=== PATIENT | male | born 1950 | race American Indian/Alaskan Native ===

== ENCOUNTER 2017-08-15 20:09 | Emergency (ER) | payer MEDICARE ==
[2017-08-15 20:09] VITALS: BMI 60.5
[2017-08-15 20:18] VITALS: RESP 18; TEMP 97.8
--- NOTE | 2017-08-15 21:00 | ED PDOC ---
Arrival/HPI - General Chief Complaint: Headache Time Seen by Provider: 08/15/17 20:14 Historian: Patient - History of Present Illness Narrative History of Present Illness (Text): 08/15/17 20:14 A 66 year old male, whose past medical history includes renal failure (last dialysis was 2 days ago), hypertension and diabetes, presents to the emergency department complaining of nausea today. Patient reports also experiencing generalized weakness. Patient denies any chest pain, shortness of breath, headache, fever, chills, vomiting, stool changes, appetite changes, or any other complaints. Also, patient mentions having not missed any dialysis sessions. PMD: Dr. Rincon Past Medical History - Provider Review Nursing Documentation Reviewed: Yes - Past History Past History: No Previous - Infectious Disease Hx of Infectious Diseases: None - Tetanus Immunization Tetanus Immunization: Unknown - Cardiac Hx Cardiac Disorders: Yes Hx Hypertension: Yes - Pulmonary Hx Respiratory Disorders: Yes Hx Pneumonia: Yes - Neurological Hx Paralysis: No - HEENT Hx Cataracts: Yes - Renal Hx Renal Disorder: Yes Hx Dialysis: Yes Type of Dialysis Access: LUE fistula Hx Renal Failure: Yes (on HD (M/W/F)) - Endocrine/Metabolic Hx Endocrine Disorders: Yes Hx Diabetes Mellitus Type 2: Yes - Hematological/Oncological Hx Blood Disorders: Yes Hx Blood Transfusions: Yes Hx Blood Transfusion Reaction: No - Integumentary Hx Dermatological Disorder: No - Musculoskeletal/Rheumatological Hx Musculoskeletal Disorders: No - Gastrointestinal Hx Gastrointestinal Disorders: No - Genitourinary/Gynecological Hx Genitourinary Disorders: No - Psychiatric Hx Emotional Abuse: No Hx Physical Abuse: No Hx Substance Use: No - Surgical History Hx Cataract Extraction: Yes Other/Comment: DIANA AV Fistula - Anesthesia Hx Anesthesia: Yes Hx Anesthesia Reactions: No Hx Malignant Hyperthermia: No - Suicidal Assessment Feels Threatened In Home Enviroment: No Family/Social History - Physician Review Nursing Documentation Reviewed: Yes Family/Social History: No Known Family HX Smoking Status: Never Smoked Hx Alcohol Use: Yes (BEER- STOPPED 3 YRS AGO) Hx Substance Use: No Hx Substance Use Treatment: No Allergies/Home Meds Allergies/Adverse Reactions: Allergies No Known Allergies Allergy (Verified 05/27/15 13:52) Home Medications: Home Meds Medication Instructions Recorded Confirmed Ergocalciferol [Drisdol 50,000 1 cap PO Q7D 07/31/17 08/15/17 Intl Units Cap] Warfarin [Coumadin] 4 mg PO 1800 08/15/17 08/15/17 Review of Systems - Physician Review All systems were reviewed & negative as marked: Yes - Review of Systems Constitutional: Fatigue, Other (generalized weakness). absent: Fevers, Night Sweats Respiratory: absent: SOB Cardiovascular: absent: Chest Pain Gastrointestinal: Nausea. absent: Stool Changes, Vomiting, Appetite Changes Neurological: absent: Headache Physical Exam Vital Signs Reviewed: Yes Vital Signs Temp Pulse Resp BP Pulse Ox 08/15/17 20:15 97.8 F 70 18 158/80 H 95 Temperature: Afebrile Blood Pressure: Hypertensive Pulse: Regular Respiratory Rate: Normal Appearance: Positive for: Well-Appearing (well-hydrated), Other (obese; difficult to perform examination) Pain Distress: None Mental Status: Positive for: Alert and Oriented X 3 - Systems Exam Head: Present: Atraumatic, Normocephalic Pupils: Present: PERRL Extroacular Muscles: Present: EOMI Conjunctiva: Present: Normal Mouth: Present: Moist Mucous Membranes Neck: Present: Normal Range of Motion Respiratory/Chest: Present: Clear to Auscultation, Good Air Exchange. No: Respiratory Distress, Accessory Muscle Use Cardiovascular: Present: Regular Rate and Rhythm, Normal S1, S2. No: Murmurs Abdomen: Present: Normal Bowel Sounds. No: Tenderness, Distention, Peritoneal Signs Back: Present: Normal Inspection Upper Extremity: Present: Normal Inspection. No: Cyanosis, Edema Lower Extremity: Present: Normal Inspection. No: Edema Neurological: Present: GCS=15, CN II-XII Intact, Speech Normal. No: Other (no focal deficits) Skin: Present: Warm, Dry, Normal Color. No: Rashes Psychiatric: Present: Alert, Oriented x 3, Normal Insight, Normal Concentration Medical Decision Making ED Course and Treatment: 08/15/17 20:18 Impression: 66 year old male with nausea and fatigue. No acute findings on physical examination; patient appears obese, difficult to do examination. Plan: -- EKG -- Labs -- Zofran -- Reassess and disposition Prior Visits: Notes and results from previous visits were reviewed. Patient was last seen in the emergency department on 07/31/2017 for worsening gait changes, dizziness, disequilibrium, and headache. Patient was admitted. Progress Notes: 02/11/18 22:48 feels much better after zofran. No symptoms. EKG NSR with no ischemic changes. Troponin 0.05 consistent with CRF. No evidence of acute coronary event. - Lab Interpretations Lab Results: 08/15/17 21:40 08/15/17 21:40 Lab Results 08/15/17 21:40: PT 46.0 H, INR 3.92 H* 08/15/17 21:40: Sodium 139, Potassium 4.6, Chloride 96 L, Carbon Dioxide 28, Anion Gap 20, BUN 47 H, Creatinine 9.0 H*, Est GFR ( Amer) 7, Est GFR ( Non-Af Amer) 6, Random Glucose 133 H, Calcium 8.5, Total Bilirubin 0.5, AST 23, ALT 23, Alkaline Phosphatase 141 H D, Troponin I 0.05, Total Protein 7.4, Albumin 4.1, Globulin 3.3, Albumin/Globulin Ratio 1.3 08/15/17 21:40: WBC 8.6 D, RBC 3.69, Hgb 11.0 L, Hct 34.7 L, MCV 94.0, MCH 29.8 , MCHC 31.7, RDW 14.9 H, Plt Count 285, MPV 10.6, Gran % 70.5 H, Lymph % (Auto) 18.2 L, [place] % (Auto) 7.6 H, Eos % (Auto) 3.5, Baso % (Auto) 0.2, Gran # 6.02, Lymph # (Auto) 1.6, [place] # (Auto) 0.7 H, Eos # (Auto) 0.3, Baso # (Auto) 0.02 - Medication Orders Current Medication Orders: Discontinued Medications Acetaminophen (Tylenol 325mg Tab) 975 mg PO STAT STA Stop: 08/15/17 21:49 Last Admin: 08/15/17 22:13 Dose: 975 mg Ondansetron HCl (Zofran Inj) 4 mg IVP STAT STA Stop: 08/15/17 20:21 Last Admin: 08/15/17 21:47 Dose: 4 mg IVP Administration Document 08/15/17 21:47 CNR (Rec: 08/15/17 21:48 CNR [id number]) Charges for Administration # of IVP Administrations 1 - Scribe Statement The provider has reviewed the documentation as recorded by the Scribe Josafatan Dabdi Provider Agnes Attestation: All medical record entries made by the Catherineibana were at my direction and personally dictated by me. I have reviewed the chart and agree that the record accurately reflects my personal performance of the history, physical exam, medical decision making, and the department course for this patient. I have also personally directed, reviewed, and agree with the discharge instructions and disposition. Disposition/Present on Arrival - Present on Arrival Any Indicators Present on Arrival: No History of DVT/PE: No History of Uncontrolled Diabetes: No Urinary Catheter: No History of Decub. Ulcer: No History Surgical Site Infection Following: None - Disposition Have Diagnosis and Disposition been Completed?: Yes Diagnosis: Nausea, ESRD (end stage renal disease) on dialysis Disposition: HOME/ ROUTINE Disposition Time: 23:00 Patient Plan: Discharge Condition: IMPROVED Referrals: Steve Rincon MD [Primary Care Provider] - Follow up with primary Forms: [employer] (Urdu)
[2017-08-15 22:20] LABS: BASO # 0.02 K/mm3 (0.0-2.0); BASO % 0.2 % (0.0-3.0); EOS # 0.3 (0.0-0.7); EOS % 3.5 % (1.5-5.0); GRAN # 6.02 (1.4-6.5); GRAN % 70.5 % (50.0-68.0); LYMPH # 1.6 (1.2-3.4); LYMPH % 18.2 % (22.0-35.0); MEAN CORPUSCULAR HEMOGLOBIN 29.8 pg (25.0-35.0); MEAN CORPUSCULAR HGB CONC 31.7 g/dl (31.0-37.0); MEAN PLATELET VOLUME 10.6 fl (7.0-11.0); MONO # 0.7 (0.1-0.6); MONO % 7.6 % (1.0-6.0); RBC 3.69 10^6/uL (3.5-6.1); RED CELL DISTRIBUTION WIDTH 14.9 % (11.5-14.5); TROPONIN I 0.05 ng/mL; WHITE BLOOD COUNT 8.6 10^3/ul (4.5-11.0)
[2017-08-15 22:34] LABS: INR 3.92 (0.93-1.08)
[2017-08-15 22:36] LABS: ALB/GLOB RATIO 1.3 (1.1-1.8); ALBUMIN 4.1 g/dL (3.0-4.8); CALCIUM 8.5 mg/dL (8.4-10.5)
[2017-08-15 23:59] VITALS: BP 142/76; PULSE 73; O2SAT 97
--- NOTE | 2017-08-16 15:58 | CARD ---
APPROVED REPORT EKG Measurement Heart [id number] <Conclusion> Sinus rhythm with marked sinus arrhythmia with 1st degree AV block Otherwise normal ECG
== END 2017-08-15 23:20 | disposition home or self-care (01) ==
LOC: ED 20:09
DX: I12.0 Hypertensive chronic kidney disease with stage 5 chronic kidney disease or end stage renal disease (principal); E11.22 Type 2 diabetes mellitus with diabetic chronic kidney disease; N18.6 End stage renal disease; Z99.2 Dependence on renal dialysis; R11.0 Nausea
CPT/HCPCS: 80053; 84484; 85025; 85610; 93005; 96374; 99285; J2405

== ENCOUNTER 2017-08-24 15:53 | Inpatient (IN) | payer MEDICARE ==
[2017-08-24 15:53] VITALS: BMI 60.5
[2017-08-24] MEDS ORDERED: Piperacillin/Tazobact 3.375 gm 100 ML IVPB STA (16:24)
[2017-08-24] MEDS ORDERED: Vancomycin 2 GM in Sodium Chloride 0.9% 500 ML IVPB ONE (16:24)
--- NOTE | 2017-08-24 16:29 | ED PDOC ---
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 as per pt, has had symptoms for a while but saw commercial agent today sent to er. pt denies any other complaitns, reports compliance with warfarin. no fevers, cardiopulm complaints. Past Medical History - Past History Past History: No Previous - Infectious Disease Hx of Infectious Diseases: None - Tetanus Immunization Tetanus Immunization: Unknown - Cardiac Hx Cardiac Disorders: Yes Hx Hypertension: Yes - Pulmonary Hx Respiratory Disorders: Yes Hx Pneumonia: Yes - Neurological Hx Neurological Disorder: Yes HX Cerebrovascular Accident: Yes (as per pt in 07/2017) Hx Paralysis: No - HEENT Hx HEENT Disorder: Yes Hx Cataracts: Yes - Renal Hx Renal Disorder: Yes Hx Dialysis: Yes Type of Dialysis Access: L upper arm Date of Last Dialysis Treatment: 08/23/17 Hx Renal Failure: Yes (on HD (M/W/F)) - Endocrine/Metabolic Hx Endocrine Disorders: Yes Hx Diabetes Mellitus Type 2: Yes - Hematological/Oncological Hx Blood Disorders: Yes Hx Blood Transfusions: Yes Hx Blood Transfusion Reaction: No - Integumentary Hx Dermatological Disorder: No - Musculoskeletal/Rheumatological Hx Musculoskeletal Disorders: No - Gastrointestinal Hx Gastrointestinal Disorders: No - Genitourinary/Gynecological Hx Genitourinary Disorders: No - Psychiatric Hx Emotional Abuse: No Hx Physical Abuse: No Hx Substance Use: No - Surgical History Hx Cataract Extraction: Yes Other/Comment: DIANA AV Fistula - Anesthesia Hx Anesthesia: Yes Hx Anesthesia Reactions: No Hx Malignant Hyperthermia: No - Suicidal Assessment Feels Threatened In Home Enviroment: No Family/Social History - Physician Review Nursing Documentation Reviewed: Yes Family/Social History: Unknown Family HX Smoking Status: Never Smoked Hx Alcohol Use: Yes (BEER- STOPPED 3 YRS AGO) Hx Substance Use: No Hx Substance Use Treatment: No Allergies/Home Meds Allergies/Adverse Reactions: Allergies No Known Allergies Allergy (Verified 08/24/17 16:02) Home Medications: Home Meds Medication Instructions Recorded Confirmed Ergocalciferol [Drisdol 50,000 1 cap PO Q7D 01/27/18 02/20/18 Intl Units Cap] Warfarin [Coumadin] 4 mg PO 1800 08/15/17 08/24/17 Duloxetine HCl [Duloxetine HCl] 60 mg PO DAILY 08/24/17 08/24/17 traMADol [Ultram] 50 g PO TID PRN 08/24/17 08/24/17 Review of Systems - Review of Systems Constitutional: Normal Eyes: Normal ENT: Normal Respiratory: Normal Cardiovascular: Normal Gastrointestinal: Normal Genitourinary Male: Normal Musculoskeletal: Other (5th toe gangrene) Neurological: Normal Endocrine: Normal Hemo/Lymphatic: Normal Psychiatric: Normal Physical Exam Vital Signs Temp Pulse Resp BP Pulse Ox 08/24/17 21:28 64 18 142/73 98 08/24/17 18:48 65 18 148/73 96 08/24/17 16:15 151/62 H 08/24/17 16:06 97.6 F 69 18 96 Temperature: Afebrile Blood Pressure: Normal Pulse: Regular Respiratory Rate: Normal Appearance: Positive for: Well-Appearing, Non-Toxic, Comfortable Pain Distress: None Mental Status: Positive for: Alert and Oriented X 3 Finger Stick Blood Glucose: 147 - Systems Exam Head: Present: Atraumatic, Normocephalic Pupils: Present: PERRL Extroacular Muscles: Present: EOMI Conjunctiva: Present: Normal Mouth: Present: Moist Mucous Membranes Neck: Present: Normal Range of Motion Respiratory/Chest: Present: Clear to Auscultation, Good Air Exchange. No: Respiratory Distress, Accessory Muscle Use Cardiovascular: Present: Regular Rate and Rhythm, Normal S1, S2. No: Murmurs Abdomen: Present: Normal Bowel Sounds. No: Tenderness, Distention, Peritoneal Signs Back: Present: Normal Inspection Upper Extremity: Present: Normal Inspection. No: Cyanosis, Edema Lower Extremity: Present: Normal Inspection, Other (5th right toe gangrene, diminshed pulses to b/l le). No: Edema Neurological: Present: GCS=15, CN II-XII Intact, Speech Normal Skin: Present: Warm, Dry, Normal Color. No: Rashes Psychiatric: Present: Alert, Oriented x 3, Normal Insight, Normal Concentration Medical Decision Making ED Course and Treatment: 08/24/17 18:[address] moser- labs imaging pendign seen by dr barahona bedside accepts for admission - Lab Interpretations Microbiology Results: Microbiology Results 08/24/17 17:00 Blood Blood Culture - Preliminary NO GROWTH AFTER 3 DAYS 08/24/17 16:30 Blood Blood Culture - Preliminary NO GROWTH AFTER 3 DAYS 08/24/17 17:00 Toe Gram Stain - Final 08/24/17 17:00 Toe Wound Culture - Preliminary Stenotrophomonas Maltophilia Lab Results: 08/24/17 17:00 08/24/17 17:00 Lab Results 08/24/17 17:00: ESR 114 H 08/24/17 17:00: C-React Prot High Sens > 15.00 H 08/24/17 17:00: Sodium 139, Potassium 4.2, Chloride 95 L, Carbon Dioxide 32, Anion Gap 16, BUN 29 H, Creatinine 7.3 H, Est GFR ( Amer) 9, Est GFR (Non -Af Amer) 8, Random Glucose 135 H, Calcium 9.1, Total Bilirubin 0.6, AST 18, ALT 25, Alkaline Phosphatase 151 H, Total Protein 6.3, Albumin 3.4, Globulin 2.9 , Albumin/Globulin Ratio 1.2 08/24/17 17:00: PT 24.1 H, INR 2.08 H, APTT 41.6 H 08/24/17 17:00: WBC 9.4, RBC 3.53, Hgb 10.3 L, Hct 32.1 L, MCV 90.9 D, MCH 29.2 , MCHC 32.1, RDW 14.9 H, Plt Count 304, MPV 10.3, Gran % 74.0 H, Lymph % (Auto) 13.8 L, [place] % (Auto) 10.3 H, Eos % (Auto) 1.8, Baso % (Auto) 0.1, Gran # 6.96 H , Lymph # (Auto) 1.3, [place] # (Auto) 1.0 H, Eos # (Auto) 0.2, Baso # (Auto) 0.01 08/24/17 16:13: POC Glucose (mg/dL) 147 H - RAD Interpretation Radiology Orders: 08/24/17 16:24 FOOT RIGHT 3 VIEWS ROUTINE [RAD] Stat - Medication Orders Current Medication Orders: Acetaminophen (Tylenol 325mg Tab) 650 mg PO Q6H PRN PRN Reason: TEMP>=99.5F Last Admin: 08/27/17 23:47 Dose: 650 mg [facility] Pain/Vitals Document 08/27/17 23:47 CDL (Rec: 08/27/17 23:48 CDL [id number]) Presence of Pain Presence of Pain Yes Location Left, Right or Bilateral Right Pain Location Body Site Foot Intensity 7 Scale Used Numeric Pain Behavior Restlessness Re-Assess: [facility] Pain/Vitals Document 08/28/17 00:47 CDL (Rec: 08/28/17 06:35 CDL [id number]) Pain Reassessment Is This A Pain ReAssessment? Yes Sleep Is patient sleeping during reassessment? Yes Acetaminophen (Tylenol 325mg Tab) 650 mg PO Q4H PRN PRN Reason: Pain, moderate (4-7) Last Admin: 08/27/17 18:40 Dose: 650 mg Aspirin (Ecotrin) 81 mg PO DAILY [facility] Last Admin: 08/27/17 12:01 Dose: Not Given Non-Admin Reason: Patient in Cardiology Atorvastatin Calcium (Lipitor) 80 mg PO DIN [facility] Last Admin: 08/27/17 17:08 Dose: 80 mg Calcium Acetate (Phoslo) 1,334 mg PO TID [facility] Last Admin: 08/27/17 18:43 Dose: Cinacalcet (Sensipar) 30 mg PO DAILY [facility] Last Admin: 08/27/17 12:01 Dose: Not Given Non-Admin Reason: Patient in Cardiology Docusate Sodium (Colace) 100 mg PO TID [facility] Last Admin: 08/27/17 17:08 Dose: 100 mg Duloxetine HCl (Cymbalta) 60 mg PO DAILY [facility] Last Admin: 08/27/17 12:00 Dose: Not Given Non-Admin Reason: Patient in Cardiology Ergocalciferol (Drisdol 50,000 Intl Units Cap) 1 cap PO Q7D [facility] Last Admin: 08/24/17 21:15 Dose: Folic Acid (Folic Acid) 5 mg PO DAILY [facility] Last Admin: 08/27/17 12:01 Dose: Not Given Non-Admin Reason: Patient in Cardiology Ceftaroline Fosamil 200 mg/ (Sodium Chloride) 100 mls @ 100 mls/hr IVPB Q12 [facility] PRN Reason: Protocol Stop: 09/02/17 10:01 Last Admin: 08/27/17 22:04 Dose: 100 mls/hr eMAR Start Stop Document 08/27/17 22:04 CDL (Rec: 08/27/17 22:05 CDL [id number]) Intravenous Solution Start Date 08/27/17 Start Time 22:05 End Date 08/27/17 End time 23:05 Total Infusion Time 60 Metronidazole (Flagyl) 500 mg in 100 mls @ 100 mls/hr IVPB Q8 [facility] PRN Reason: Protocol Last Admin: 08/28/17 06:34 Dose: Not Given Non-Admin Reason: Patient in Dialysis Heparin Sodium/Sodium Chloride (Heparin 09721 Units/250ml 1/2 Normal Saline) 25 ,000 units in 250 mls @ 20.139 mls/hr IV .[id number] PRN; Protocol; 12 UNITS/KG/HR PRN Reason: ADJUST RATE PER PROTOCOL Insulin Human Lispro (Humalog Med) 0 units SC AC [facility] PRN Reason: Protocol Last Admin: 08/27/17 16:30 Dose: 1 units [facility] Blood Glucose Document 08/27/17 16:30 KE (Rec: 08/27/17 16:31 [place] [id number] Blood Glucose Finger Stick Blood Glucose (70-120) 162 Subcutaneous Administrations Document 08/27/17 16:30 KE (Rec: 08/27/17 16:31 KE [id number] Charges for Administration # of Subcutaneous Administrations 1 Losartan Potassium (Cozaar) 100 mg PO DAILY [facility] Last Admin: 08/27/17 12:00 Dose: Not Given Non-Admin Reason: Patient in Cardiology Morphine Sulfate (Morphine) 2 mg IVP Q6H PRN PRN Reason: Pain, moderate (4-7) Last Admin: 08/26/17 11:46 Dose: 2 mg [facility] Pain Assessment Document 08/26/17 11:46 BENJAMIN (Rec: 08/26/17 11:46 BENJAMIN [id number]) Pain Reassessment Is this a pain reassessment? No Sleep Is patient sleeping during reassessment? No Presence of Pain Presence of Pain Yes Pain Scale Used Pain Scale Used Numeric Location Left, Right or Bilateral Right Pain Location Body Site Foot Description Description Constant Intensity of Pain at present 10 Acceptable Level of Pain 0 Pain Behavior Restlessness Facial Grimacing Alleviating Factors/Management Medication Techniques IVP Administration Document 08/26/17 11:46 BENJAMIN (Rec: 02/22/18 11:46 BENJAMIN [id number]) Charges for Administration # of IVP Administrations 1 Re-Assess: CARLEY Pain Assessment Document 08/26/17 12:46 BENJAMIN (Rec: 08/26/17 15:18 BENJAMIN [id number]) Pain Reassessment Is this a pain reassessment? Yes Sleep Is patient sleeping during reassessment? No Presence of Pain Presence of Pain No Pantoprazole Sodium (Protonix Ec Tab) 20 mg PO 0600,1600 [facility] Last Admin: 08/28/17 06:34 Dose: Not Given Non-Admin Reason: Patient in Dialysis Sennosides (Senokot Tab) 17.2 mg PO HS [facility] Last Admin: 08/27/17 22:03 Dose: 17.2 mg Discontinued Medications Darbepoetin Celio (Aranesp) 25 mcg IVP ONCE ONE Stop: 08/25/17 12:33 Last Admin: 08/25/17 12:41 Dose: 25 mcg IVP Administration Document 08/25/17 12:41 CADE (Rec: 08/25/17 12:41 CADE [id number]) Charges for Administration # of IVP Administrations 1 Diphenhydramine HCl (Benadryl) 25 mg PO ONCE ONE Stop: 08/28/17 00:03 Last Admin: 08/28/17 00:22 Dose: 25 mg Piperacillin Sod/Tazobactam Sod (Zosyn 3.375 In Ns 100ml) 100 mls @ 200 mls/hr IVPB STAT STA PRN Reason: Protocol Stop: 08/24/17 16:53 Last Admin: 08/24/17 16:52 Dose: 200 mls/hr eMAR Start Stop Document 08/24/17 16:52 OCS (Rec: 08/24/17 16:52 OCS [id number]) Intravenous Solution Start Date 08/24/17 Start Time 16:52 Vancomycin HCl (Vancomycin 1gm) 1 gm in 250 mls @ 167 mls/hr IVPB STAT STA Stop: 08/24/17 18:02 Last Admin: 08/24/17 18:32 Dose: 167 mls/hr eMAR Start Stop Document 08/24/17 18:32 OCS (Rec: 08/24/17 18:32 OCS [id number]) Intravenous Solution Start Date 08/24/17 Start Time 18:32 Ceftaroline Fosamil 200 mg/ (Sodium Chloride) 100 mls @ 100 mls/hr IVPB Q12 [facility] PRN Reason: Protocol Stop: 08/24/17 22:59 Last Admin: 08/24/17 22:48 Dose: 100 mls/hr eMAR Start Stop Document 08/24/17 22:48 BN (Rec: 08/24/17 22:48 [place] [facility] [id number] Intravenous Solution Start Date 08/24/17 Start Time 22:48 Vancomycin HCl (Vancomycin 1gm) 1 gm in 250 mls @ 167 mls/hr IVPB DAILY [facility] PRN Reason: Protocol Last Admin: 08/25/17 09:15 Dose: 167 mls/hr eMAR Start Stop Document 08/25/17 09:15 AJ (Rec: 08/25/17 09:16 AJ [id number] Intravenous Solution Start Date 08/25/17 Start Time 09:15 Piperacillin Sod/Tazobactam Sod (Zosyn 2.25 Gm In 0.9% 100 Ml) 2.25 gm in 100 mls @ 200 mls/hr IVPB STAT STA PRN Reason: Protocol Stop: 08/25/17 05:43 Last Admin: 08/25/17 05:48 Dose: 200 mls/hr eMAR Start Stop Document 08/25/17 05:48 BN (Rec: 08/25/17 05:48 BN [facility] [id number] Intravenous Solution Start Date 08/25/17 Start Time 05:48 Heparin Sodium/Sodium Chloride (Heparin 69904 Units/250ml 1/2 Normal Saline) 25 ,000 units in 250 mls @ 20.139 mls/hr IV .[id number] PRN; Protocol; 12 UNITS/KG/HR PRN Reason: ADJUST RATE PER PROTOCOL Morphine Sulfate (Morphine) 4 mg IVP STAT STA Stop: 08/24/17 16:31 Last Admin: 08/24/17 16:50 Dose: 4 mg MAR Pain Assessment Document 08/24/17 16:50 OCS (Rec: 08/24/17 16:51 OCS [id number]) Pain Reassessment Is this a pain reassessment? Yes Sleep Is patient sleeping during reassessment? No Presence of Pain Presence of Pain Yes Pain Scale Used Pain Scale Used Numeric Location Left, Right or Bilateral Right Pain Location Body Site Foot Description Description Constant Intensity of Pain at present 10 Pain Behavior Irritability Aggravating Factors ADL's IVP Administration Document 08/24/17 16:50 OCS (Rec: 08/24/17 16:51 OCS [id number]) Charges for Administration # of IVP Administrations 1 Oxycodone HCl (Oxycodone Immediate Release Tab) 10 mg PO ONCE ONE Stop: 08/26/17 20:47 Last Admin: 08/26/17 21:39 Dose: 10 mg MAR Pain Assessment Document 08/26/17 21:39 IMT (Rec: 08/26/17 21:39 IMT [id number]) Pain Reassessment Is this a pain reassessment? No Presence of Pain Presence of Pain Yes Location Left, Right or Bilateral Bilateral Pain Location Body Site Leg Description Description Intermittent Pain Behavior Guarding Aggravating Factors ADL's Alleviating Factors/Management Medication Techniques Alleviating Factors Medication Disposition/Present on Arrival - Present on Arrival Any Indicators Present on Arrival: No History of DVT/PE: No History of Uncontrolled Diabetes: No Urinary Catheter: No History of Decub. Ulcer: No History Surgical Site Infection Following: None - Disposition Have Diagnosis and Disposition been Completed?: Yes Diagnosis: Toe gangrene Disposition: HOSPITALIZED Disposition Time: 18:31 Patient Problems: Current Active Problems Problem Status Onset Toe gangrene Acute Condition: STABLE
[2017-08-24] MEDS ORDERED: Morphine 4 mg/ml ISec IVP STA (16:30)
[2017-08-24] MEDS ORDERED: Vancomycin 1gm in NS 250ml 1 GM/250 ML BAG IVPB STA (16:33)
[2017-08-24 17:29] LABS: BASO # 0.01 K/mm3 (0.0-2.0); BASO % 0.1 % (0.0-3.0); EOS # 0.2 (0.0-0.7); EOS % 1.8 % (1.5-5.0); GRAN # 6.96 (1.4-6.5); HEMOGLOBIN 10.3 g/dL (14.0-18.0); LYMPH # 1.3 (1.2-3.4); LYMPH % 13.8 % (22.0-35.0); MEAN CELL VOLUME 90.9 fl (80.0-105.0); MEAN CORPUSCULAR HEMOGLOBIN 29.2 pg (25.0-35.0); MEAN CORPUSCULAR HGB CONC 32.1 g/dl (31.0-37.0); MEAN PLATELET VOLUME 10.3 fl (7.0-11.0); MONO % 10.3 % (1.0-6.0); RBC 3.53 10^6/uL (3.5-6.1); RED CELL DISTRIBUTION WIDTH 14.9 % (11.5-14.5); WHITE BLOOD COUNT 9.4 10^3/ul (4.5-11.0)
[2017-08-24 17:35] LABS: ALB/GLOB RATIO 1.2 (1.1-1.8); ALBUMIN 3.4 g/dL (3.0-4.8); CALCIUM 9.1 mg/dL (8.4-10.5)
[2017-08-24 17:46] LABS: PROTHROMBIN TIME 24.1 SECONDS (9.4-12.5)
[2017-08-24 17:47] LABS: INR 2.08 (0.93-1.08); PARTIAL THROMBOPLASTIN TIME 41.6 Seconds (25.1-36.5)
[2017-08-24] MEDS ORDERED: HYDROmorphone 0.5 mg/0.5 ml ISec IVP PRN (18:01)
--- NOTE | 2017-08-24 19:11 | CP.PCM.HP ---
History of Present Illness - History of Present Illness History of Present Illness: Patient is a 66 year old male with past medical history significant for CVA, ESRD HD (MWF), cataracts, hypertension, IDDM, presenting with complaints of pain at 5th metatarsal of right foot. Patient states pain started three weeks ago. States he went to his librarian assistant and was told he did not have an infection. Patient then went to his PMD that week with same complaint for which he was prescribed duloxetine and tramadol. As per patient, pain continued to persist worsening over time. He was then prompted to go to his librarian assistant once again. Patient was sent from podiatry office directly to emergency department. As per librarian assistant patient presented to clinic with acute onset of gangrene of 5th toe, right foot with complaints of pain. As per podiatry patient has abscess of right foot which was malodorous at the clinic during evaluation. Patient describes the pain as sharp rating it a 10/10, radiating from time to time up his leg. Patient is unable to bear weight on right foot, states he was hopping around lately to avoid placing weight on his right foot. PMD: Dr. Rincon Past surgical history: Cataract surgery (OU) Medications: reviewed Family history: DM Allergies: NKDA Social history: denies tobacco, alcohol, illicit drug use Present on Admission - Present on Admission Any Indicators Present on Admission: No Review of Systems - Constitutional Constitutional: absent: Chills, Fever - EENT Eyes: absent: Blurred Vision, Change in Vision - Cardiovascular Cardiovascular: absent: Chest Pain, Chest Pain at Rest, Dyspnea - Respiratory Respiratory: absent: Cough, Dyspnea - Genitourinary Genitourinary: absent: Dysuria, Flank Pain - Musculoskeletal Musculoskeletal: absent: Back Pain, Muscle Cramps - Neurological Neurological: absent: Abnormal Hearing, Abnormal Movements, Abnormal Speech, Confusion, Dizziness - Psychiatric Psychiatric: absent: Anxiety, Depression - Hematologic/Lymphatic Hematologic: absent: Easy Bleeding, Easy Bruising Past Patient History - Infectious Disease Hx of Infectious Diseases: None - Tetanus Immunizations Tetanus Immunization: Unknown - Past Social History Smoking Status: Never Smoked - CARDIAC Hx Cardiac Disorders: Yes Hx Hypertension: Yes - PULMONARY Hx Respiratory Disorders: Yes Hx Pneumonia: Yes - NEUROLOGICAL Hx Neurological Disorder: Yes HX Cerebrovascular Accident: Yes (as per pt in 07/2017) Hx Paralysis: No - HEENT Hx HEENT Problems: Yes Hx Cataracts: Yes - RENAL Hx Chronic Kidney Disease: Yes Hx Dialysis: Yes Type of Dialysis Access: L upper arm Date of Last Dialysis Treatment: 08/23/17 Hx Renal Failure: Yes (on HD (M/W/F)) - ENDOCRINE/METABOLIC Hx Endocrine Disorders: Yes Hx Diabetes Mellitus Type 2: Yes - HEMATOLOGICAL/ONCOLOGICAL Hx Blood Disorders: Yes Hx Blood Transfusions: Yes Hx Blood Transfusion Reaction: No - INTEGUMENTARY Hx Dermatological Problems: No - MUSCULOSKELETAL/RHEUMATOLOGICAL Hx Musculoskeletal Disorders: No - GASTROINTESTINAL Hx Gastrointestinal Disorders: No - GENITOURINARY/GYNECOLOGICAL Hx Genitourinary Disorders: No - PSYCHIATRIC Hx Emotional Abuse: No Hx Physical Abuse: No Hx Substance Use: No - SURGICAL HISTORY Hx Cataract Extraction: Yes Other/Comment: DIANA AV Fistula - ANESTHESIA Hx Anesthesia: Yes Hx Anesthesia Reactions: No Hx Malignant Hyperthermia: No Meds Allergies/Adverse Reactions: Allergies Allergy/AdvReac Type Severity Reaction Status Date / Time No Known Allergies Allergy Verified 08/24/17 16:02 Physical Exam - Constitutional Appears: Well - Head Exam Head Exam: ATRAUMATIC, NORMAL INSPECTION, NORMOCEPHALIC - Eye Exam Eye Exam: EOMI, Normal appearance - ENT Exam ENT Exam: Mucous Membranes Moist, Normal Exam - Neck Exam Neck exam: Positive for: Normal Inspection - Respiratory Exam Respiratory Exam: Clear to Auscultation Bilateral, NORMAL BREATHING PATTERN. absent: Rhonchi, Wheezes - Cardiovascular Exam Cardiovascular Exam: REGULAR RHYTHM, +S1, +S2, Systolic Murmur - GI/Abdominal Exam GI & Abdominal Exam: Distended, Hyperactive Bowel Sounds, Normal Bowel Sounds - Extremities Exam Extremities exam: Negative for: normal inspection Additional comments: both feet are significantly dry with cuts and scrapes. Right 5th toe has either a cut or opening on lateral side. Malodorous - Back Exam Back exam: NORMAL INSPECTION - Neurological Exam Neurological exam: Alert, CN II-XII Intact, Oriented x3 - Skin Skin Exam: Intact, Normal Color, Warm Results - Vital Signs Recent Vital Signs: Last Vital Signs Temp 97.6 F 08/24/17 16:06 Pulse 65 08/24/17 18:48 Resp 18 08/24/17 18:48 BP 148/73 08/24/17 18:48 Pulse Ox 96 08/24/17 18:48 - Labs Result Diagrams: 08/24/17 17:00 08/24/17 17:00 Assessment & Plan - Assessment and Plan (Free Text) Assessment: This is a 66 yo AA M with PMH of ESRD on HD (MWF) HTN, HLD, DM-2, and chronic anemia who presented with weakness, headache, dizziness, and impaired gait. He was found to have multiple acute infarcts on MRI brain, concerning for embolic stroke, and is now being bridge to therapeutic Coumadin anticoagulation with Lovenox. Plan: Right foot 5th toe gangrenous abscess -Wound cultures -Blood cultures -Arterial and venous doppler studies -Ankle brachial index -Procal, CRP ordered -Podiatry consulted Hypertension -continue Losartan HLD -continue high dose Statin DM -Last HgA1c 7.8 -continue ISS-medium and fingerstick checks ACHS ESRD on HD (MWF) -Nephro consulted for dialysis -continue home Phos-lo, Sensipar, Vit D Ppx: Protonix for GI, Heparin covers for DVT Patient reviewed, and discussed with attending, Dr. Rincon.
[2017-08-24] MEDS: Ergocalciferol 50,000 Intl Units Cap PO SCH (21:15)
[2017-08-24] MEDS: Morphine 2 mg/ml ISec IVP PRN (22:51)
[2017-08-25] MEDS: Pantoprazole 20 mg EC Tab PO SCH ×2 (05:05→16:08)
[2017-08-25] MEDS ORDERED: Piperacillin/Tazobact 2.25gm 2.25 GM/100 ML BAG IVPB STA (05:14)
[2017-08-25] MEDS: Morphine 2 mg/ml ISec IVP PRN ×3 (05:48→18:02)
[2017-08-25 07:24] LABS: INR 1.88 (0.93-1.08); PARTIAL THROMBOPLASTIN TIME 26.5 Seconds (25.1-36.5); PROTHROMBIN TIME 21.9 SECONDS (9.4-12.5)
[2017-08-25] MEDS: Insulin Lispro (humaLOG) MEDIUM Coverage SC SCH ×3 (08:03→16:16)
[2017-08-25] MEDS ORDERED: Vancomycin 1gm in NS 250ml 1 GM/250 ML BAG IVPB SCH (10:00)
[2017-08-25 10:45] LABS: BASO # 0.01 K/mm3 (0.0-2.0); BASO % 0.1 % (0.0-3.0); EOS # 0.3 (0.0-0.7); EOS % 2.5 % (1.5-5.0); GRAN # 7.37 (1.4-6.5); HEMOGLOBIN 10.1 g/dL (14.0-18.0); LYMPH # 1.5 (1.2-3.4); LYMPH % 15.4 % (22.0-35.0); MEAN CELL VOLUME 89.7 fl (80.0-105.0); MEAN CORPUSCULAR HEMOGLOBIN 28.8 pg (25.0-35.0); MEAN CORPUSCULAR HGB CONC 32.1 g/dl (31.0-37.0); MEAN PLATELET VOLUME 9.8 fl (7.0-11.0); MONO # 0.8 (0.1-0.6); RBC 3.51 10^6/uL (3.5-6.1); RED CELL DISTRIBUTION WIDTH 14.9 % (11.5-14.5)
[2017-08-25 11:06] LABS: ALBUMIN 3.7 g/dL (3.0-4.8); BILIRUBIN,DIRECT 0.6 mg/dL (0.0-0.4); CALCIUM 8.9 mg/dL (8.4-10.5); MAGNESIUM 2.2 mg/dL (1.7-2.2)
--- NOTE | 2017-08-25 11:09 | HP ---
HISTORY OF PRESENT ILLNESS: The patient was seen. The patient was seen by Dr. Schneider today for recurrent persistent right foot right toe pain. The patient was seen and evaluated by Dr. Schneider in the office. The patient was sent to the Emergency Room for evaluation of right fifth .toe gangrene and severe pain. The patient was seen and evaluated in the Emergency Room by ER physician, Dr. Vickers. The patient presented to the Emergency Room after being referred by Dr. Mayito Schneider for evaluation of the right fifth toe gangrene and the patient has been having increasing pain of the right foot. REVIEW OF SYSTEMS: Thirteen system review was done, pertinent positive negative as dictated above. CODE STATUS: Full code. LIVING WILL AND ADVANCE DIRECTIVE: None. ALLERGIES: None. HEIGHT: 5 feet 6 inches. BODY WEIGHT: 370. BODY MASS INDEX: 59 to 60. HOME MEDICATIONS 1. Ultram 50 mg t.i.d. p.r.n. 2. Coumadin 2 mg daily. 3. Protonix 40 mg daily. 4. Cozaar 100 mg daily. 5. Folic acid 5 mg daily. 6. Drisdol 50,000 units weekly. 7. Cymbalta 60 mg daily. 8. Sensipar 30 mg daily. 9. PhosLo 667 mg 2 tablets 3 times a day. 10. Lipitor 80 mg daily. 11. Ecotrin 81 mg daily. 12. Tylenol 650 mg q. 6h. p.r.n. SOCIAL HISTORY: Negative for smoking, alcohol or drug use. FAMILY HISTORY: Positive for hypertension, diabetes. OCCUPATIONAL HISTORY: Disabled. The patient's last discharge home medications; Coumadin is changed to 2 mg daily. The patient is on Cozaar 100 mg daily, Drisdol 50,000 units weekly, Cymbalta started recently 60 mg daily, aspirin 81 mg daily, folic acid 5 mg daily, Lipitor 80 mg daily, PhosLo 667 mg 2 capsules three times a day, Protonix 40 mg daily, Sensipar 30 mg daily, Tylenol 650 mg q. 6 p.r.n., Ultram 50 mg t.i.d. p.r.n. PAST MEDICAL AND SURGICAL HISTORY: The patient's past medical and surgical history is significant for history of end-stage renal disease, hemodialysis dependent three times a week via the left upper extremity AV fistula; history of morbid obesity; history of lymphedema of the bilateral lower extremity; history of gait dysfunction; history of morbid obesity; history of coronary artery disease; history of acute cerebral infarct, recently history of Coumadin-requiring cerebral infarct; history of hypertension; history of hypovitaminosis D; history of pneumonia; history of diabetic neuropathy; history of diabetic foot pain; history of dyslipidemia. The patient's past medical history is also significant for history of chronic lacunar infarct of the bilateral basal ganglia, right centrum semiovale and left neelima; history of small vessel ischemic disease of the brain; history of multiple acute infarct involving the right parietal, right frontal and left temporal lobe with punctate appearance. The patient's past medical history is significant for hypertensive cardiovascular disease with history of pulmonary hypertension with right ventricular systolic pressure of 46 mmHg, history of history of severe valvular aortic stenosis, history of mild aortic regurgitation, history of moderate mitral valve with history of moderate mitral valve stenosis, history of tricuspid regurgitation, history of concentric left ventricular hypertrophy, history of diffuse atherosclerosis of the coronary arteries with borderline 50% critical stenosed lesions of the right coronary artery, history of chronic anemia, history of insulin-requiring diabetes mellitus, history of dietary and medication noncompliance, history of multiple cardiac catheterization, hyperlipidemia, hypercholesteremia, history of cataract surgery, history of diabetic retinopathy, history of former alcohol use. PHYSICAL EXAMINATION GENERAL: The patient was seen in stretcher #11 and also in the radiology section, the patient is seen lying in the bed. VITAL SIGNS: T max is 97.6; heart rate 65, 64, 69; blood pressure is 151/62 and 148/73, respirations 18, O2 saturation is 96-98%. HEENT: Head examination, normocephalic and atraumatic. HEENT examination shows pinkish pale conjunctivae. Anicteric sclerae. No oropharyngeal lesion. No neck rigidity. CHEST: Kyphosis. LUNGS: Examination shows decreased breath sound at the bases. CARDIOVASCULAR: S1, S2. Regular rhythm. Positive systolic murmur, right second intercostal space, left second intercostal space, left sternal border. Positive systolic murmur. ABDOMEN: Protuberant, morbidly obese. No hepatosplenomegaly palpated. GENITALIA: Male. RECTAL: Examination is deferred. EXTREMITIES: Show positive left upper extremity AV fistula, positive thrill. Positive right foot fifth toe skin breakdown noted and tender to touch. Positive lymphedema of the bilateral lower extremity noted. MUSCULOSKELETAL: Examination shows a body mass index of 60. NEUROLOGIC: The patient is alert, awake, oriented x3. Cranial nerves II through XII intact. Gait examination could not be tested. MUSCULOSKELETAL: ____. PSYCHIATRIC: Examination is negative. DIAGNOSTICS: Hemoglobin/hematocrit 10.3/ , platelets 304,000. ESR is greater than 114. PT/PTT 24.1/41.6, INR 2.08. Chemistry is significant for BUN 29, creatinine 7.3, glucose 147. C-reactive protein greater than 15. LFTs are normal. Wound cultures of the right toe was done, results are pending. The patient had x-rays of the feet and ultrasound; arterial venous Doppler done, results pending. The patient was seen in the Emergency Room by Dr. Vickers. The patient was given morphine 4 mg. The patient was given vancomycin 1 g and Zosyn 3.375 g and the patient was advised to be admitted. IMPRESSION AND PLAN: A 66-year-old male with recent onset of right foot fifth toe pain and skin breakdown, seen by Podiatry today for possible gangrene of the right fifth toe. 1. Right foot fifth toe gangrene versus diabetic foot ulceration versus questionable underlying osteomyelitis. 2. Right foot fifth toe pain secondary to above. 3. Questionable possible severe diabetic neuropathy. 4. Normocytic anemia. 5. Elevated erythrocyte sedimentation rate of 114. 6. Coumadin-requiring atrial fibrillation with severe aortic valvular stenosis and mitral stenosis. 7. End-stage renal disease, hemodialysis dependent via the left upper extremity arteriovenous fistula. 8. Severe bilateral lower extremity lymphedema. 9. Elevated C-reactive protein of greater than 15. 10. Insulin-requiring diabetes mellitus. 11. History of diabetes. 12. History of hypertension. 13. History of dyslipidemia. 14. History of hypovitaminosis D. 15. History of diabetic neuropathy. 16. History of hyperlipidemia. 17. History of gastroesophageal reflux. 18. History of right foot pain. 1. Multiple acute cerebral infarct, probably multiple acute embolic cerebral infarct. 2. Severe aortic stenosis. 3. Left upper extremity arteriovenous fistula bleeding. 4. Multiple acute embolic cerebral infarct symptomatic with symptoms of dizziness, gait dysfunction. 5. End-stage renal disease, hemodialysis dependent via the left upper extremity arteriovenous fistula three times a week. 6. Anemia. 7. Insulin-requiring diabetes mellitus. 8. History of coronary artery disease. 9. Gait dysfunction. 10. Morbid obesity. 11. Bilateral lower extremity lymphedema. 12. Hypertension. 13. Secondary hyperparathyroidism. 14. Dyslipidemia. 1. Left arteriovenous fistula site bleeding, probably secondary to heparin anticoagulation. 2. Multiple acute cerebral infarct. 3. Multiple acute embolic cerebral infarct with symptoms of dizziness, weakness and gait dysfunction. 4. End-stage renal disease, hemodialysis dependent. 5. Lymphedema of the lower extremity. 6. Normocytic anemia. 7. Insulin-requiring diabetes mellitus with hyperglycemia and hemoglobin A1c of 7.8. 8. Hyperphosphatemia. 9. Hypovitaminosis D. 10. Hypertriglyceridemia. 11. Hypercholesterolemia. 12. Elevated LDL. 13. Diffuse bilateral slowing with abnormal EEG consistent with bilateral cerebral dysfunction. 14. Gait dysfunction. 15. Left upper extremity arteriovenous fistula site bleeding secondary to heparin anticoagulation. 1. Acute cerebral infarct symptomatic with symptoms of dizziness and gait dysfunction. 2. Acute embolic multiple cerebral infarct. 3. End-stage renal disease, hemodialysis dependent three times a week via left upper extremity AV fistula. 4. Embolic acute cerebrovascular accident. 5. Severe to critical aortic stenosis. 6. Abnormal EEG with presence of diffuse slowing consistent with mild bilateral cerebral dysfunction. 7. Hypertension. 8. Transient hypoxemia. 9. Normocytic anemia. 10. Insulin-requiring diabetes mellitus, uncontrolled with hemoglobin A1c of 7.8. 11. Hypovitaminosis D. 12. Hypertriglyceridemia, hypercholesteremia with elevated LDL and decreased HDL. 13. Gait dysfunction. 14. Deconditioning. 15. Bilateral lower extremity lymphedema. 16. Dyslipidemia. 17. Secondary hyperparathyroidism. 1. Multiple acute infarcts, dominant 3-mm infarct in the right parietal lobe with multiple acute smaller infarcts in the right parietal, right frontal, and left temporal lobes. 2. Gait dysfunction. 3. Dizziness. 4. Right parietal lobe 3.5-cm acute infarct. 5. Multiple acute smaller infarcts involving the right parietal lobe, right frontal lobe, left temporal lobe with punctate appearance. 6. Bilateral basal ganglia right centrum semiovale and left pontine multiple old chronic lacunar infarcts. 7. Chronic small vessel ischemic disease of the brain. 8. Left mastoid air cell fluid, questionable mastoiditis. 9. Left ventricular ejection fraction of 60%. 10. Severe valvular aortic stenosis. 11. Pulmonary arterial hypertension with right ventricular systolic pressure of 46 mmHg. 12. Concentric left ventricular atrophy. 13. Moderately dilated left atrium. 14. Calcified aortic valve with decreased opening. 15. Mild aortic regurgitation. 16. Severe valvular aortic stenosis. 17. Trace mitral regurgitation. 18. Moderate mitral stenosis. 19. Deconditioning. 20. Gait dysfunction. 21. Lymphedema of the lower extremity. 22. End-stage renal disease, hemodialysis dependent three times a week via the left upper extremity arteriovenous fistula. 23. Diffuse slowing on the consistent with bilateral cerebral dysfunction. 24. Insulin-requiring diabetes mellitus with hyperglycemia and hemoglobin A1c of 7.8. 25. History of hypertension. 26. Normocytic anemia. 27. Secondary hyperparathyroidism. 28. Uncontrolled insulin-requiring diabetes mellitus with hemoglobin A1c of 7.8. 29. Hypercholesteremia, hypertriglyceridemia with elevated high density lipoprotein and decreased low density lipoprotein. 30. Hypovitaminosis D. 1. Multiple acute brain infarct, probably embolic with right parietal lobe 3-cm dominant infarct and multiple acute infarct in the right parietal, right frontal and left temporal lobes. 2. Left internal carotid artery cavernous and supraclinoid segment stenosis. 3. Renal osteodystrophy. 4. Bilateral cerebral dysfunction. 5. Headache, dizziness, weakness and possible gait dysfunction. 6. Morbid obesity with elevated body mass index of 60. 7. Bilateral lower extremity lymphedema. 8. Chronic venous stasis of the lower extremity. 9. Normocytic anemia. 10. Insulin-requiring diabetes mellitus with hyperglycemia and hemoglobin A1c of 7.8. 11. Hyperglycemia. 12. Hypovitaminosis D. 13. Hypertriglyceridemia, hypercholesteremia with decreased HDL. 14. History of poor compliance. 15. Left ventricular ejection fraction of 60%. 16. Pulmonary arterial hypertension with right ventricular systolic pressure of 46 mmHg 17. Moderate concentric left ventricular hypertrophy. 18. Moderately dilated left atrium. 19. Calcified aortic valve with decreased opening and mild aortic regurgitation. 20. Severe valvular aortic stenosis. 21. Trace mitral regurgitation. 22. Moderate mitral stenosis. 23. Tricuspid regurgitation with right ventricular systolic pressure of 46 mmHg and pulmonary arterial hypertension. 24. Left internal carotid artery narrowing and irregularities of the cavernous and supraclinoid segment compatible with stenosis. 25. Calcified plaque of the left internal carotid artery cavernous and supraclinoid segment. 26. Nonvisualized left anterior cerebral artery. 27. Left lower lobe lingular atelectasis and scarring. 28. Right lung noncalcified 3-mm pulmonary nodule. 29. Cardiomegaly. 30. Bilateral gynecomastia. 31. Left subclavian vein stenting. 32. Possible chronic occlusion of the right brachiocephalic vein. 33. Pulmonary hypertension. 34. Mediastinal lymphadenopathy. 35. Cholelithiasis. 36. Renal osteodystrophy with diffusely dense appearance of the bones and multiple vertebral endplate lucencies and degenerative Schmorl node. 37. Pulmonary nodule. 38. Bilateral 20% to 39% proximal internal carotid artery stenosis. 39. Multiple acute infarct involving the cortex and subcortical white matter and a dominant acute infarct in the right parietal lobe, 3.5 cm, with multiple smaller acute infarct of the right parietal lobe, right frontal lobe and left temporal lobe with punctate appearance. 40. Bilateral basal ganglia, multiple small old chronic lacunar infarct of the bilateral basal ganglia, right centrum semiovale and left neelima area. 41. Chronic microvascular ischemic disease of the brain throughout the brain white matter bilaterally. 42. Left mastoid air cell fluid. 43. Left lower lobe airspace disease, questionable atelectasis or pneumonia. 44. Chronic microangiopathic changes of the brain. 45. Unchanged mid occipital soft tissue swelling. 46. End-stage renal disease, hemodialysis dependent three times a week with left upper extremity arteriovenous fistula. PLAN: At this time, the patient is to be admitted to [facility]. Blood cultures and right foot wound cultures ordered. CONSULTATIONS 1. Podiatry 2. Infectious Disease. 3. Vascular. 4. Interventional Radiology. Repeat CBC, CMP, LFT, magnesium, PT/PTT ordered. Blood and wound cultures ordered. X-ray of the right foot and the arterial venous Doppler ordered. The patient has been started on Colace 100 mg three times a day, Cozaar 100 mg daily, Cymbalta 60 mg daily, Drisdol 50,000 units weekly, Ecotrin 81 mg daily, folic acid 5 mg daily, Humalog medium dose sliding scale coverage before meals, Lipitor 80 mg daily, morphine 2 mg IV q. 6 hours p.r.n., PhosLo 1334 mg three times a day, Protonix 40 mg daily, Senokot 17.2 mg at bedtime,. Sensipar 30 mg daily, Tylenol 650 mg q. 6h. p.r.n., Teflaro 400 mg IV q. 12. The patient received vancomycin 1 g IV in the emergency room, Zosyn 3.375 g IV stat. The patient was ordered arterial venous Doppler, MRI of the right foot ordered for evaluation of the gangrene and osteomyelitis. Renal diet ordered. The patient has been ordered out of bed to chair, physical therapy, ambulation therapy . The patient has been ordered Teflaro. The patient will be referred for diabetic education evaluation. Procalcitonin level has been ordered. The patient will be ordered to elevate bilateral lower extremity out of bed.. SCDs and TEDs and daily weights ordered. The patient's case referred for physical therapy, occupational therapy. Out of bed ordered. The patient at present was seen in the Emergency Room and Radiology area. The patient has been ordered wound cultures. Procalcitonin level on order has been ordered.. The patient will be admitted. We will await further recommendation for Interventional Radiology, Nephrology, Podiatry and infectious disease. The patient was explained about the details of his medical condition, need for hospitalization, need for further diagnostic therapeutic intervention, need for further treatment, and need for IV antibiotic treatment, etc.; all details discussed and explained to the patient at length and all questions concerned answered. He acknowledged understanding. Dictated and electronically signed, not read. Steve Rincon MD [facility]
--- NOTE | 2017-08-25 11:18 | RAD ---
PROCEDURE: Right Foot Radiographs. HISTORY: 5th toe gangrene COMPARISON: None. FINDINGS: BONES: Normal. No fracture. JOINTS: Normal. SOFT TISSUES: Normal. OTHER FINDINGS: None. IMPRESSION: No acute findings
--- NOTE | 2017-08-25 12:20 | CP.PCM.CON ---
History of Present Illness - History of Present Illness History of Present Illness: 66 year old male with PMH of ESRD on HD, history of CVA, HTN, cataracts, DM came in to [facility] complaining of worsening right foot pain on the lateral side. 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 He went to his PMD and was given anti-anxiety and pains meds, and the pain was partially relieved. However, it persisted and got worse over the next week or so gradually. He then saw his steam flattener again and was told that he might have infection of the foot and needs to go to the hospital to be further evaluated. There is no note of fever, no vomiting, no diarrhea. Patient is having problems ambulating because he is unable to fully bear weight on the foot. Infectious diseases consult is requested to further evaluate and manage. Review of Systems - Review of Systems All systems: reviewed and no additional remarkable complaints except (as per HPI ) Past Patient History - Infectious Disease Hx of Infectious Diseases: None - Tetanus Immunizations Tetanus Immunization: Unknown - Past Social History Smoking Status: Never Smoked - CARDIAC Hx Cardiac Disorders: Yes Hx Hypertension: Yes - PULMONARY Hx Respiratory Disorders: Yes Hx Pneumonia: Yes - NEUROLOGICAL Hx Neurological Disorder: Yes HX Cerebrovascular Accident: Yes (as per pt in 07/2017) Hx Paralysis: No - HEENT Hx HEENT Problems: Yes Hx Cataracts: Yes - RENAL Hx Chronic Kidney Disease: Yes Hx Dialysis: Yes Type of Dialysis Access: L upper arm Date of Last Dialysis Treatment: 08/23/17 Hx Renal Failure: Yes (on HD (M/W/F)) - ENDOCRINE/METABOLIC Hx Endocrine Disorders: Yes Hx Diabetes Mellitus Type 2: Yes - HEMATOLOGICAL/ONCOLOGICAL Hx Blood Disorders: Yes Hx Blood Transfusions: Yes Hx Blood Transfusion Reaction: No - INTEGUMENTARY Hx Dermatological Problems: No - MUSCULOSKELETAL/RHEUMATOLOGICAL Hx Musculoskeletal Disorders: No - GASTROINTESTINAL Hx Gastrointestinal Disorders: No - GENITOURINARY/GYNECOLOGICAL Hx Genitourinary Disorders: No - PSYCHIATRIC Hx Emotional Abuse: No Hx Physical Abuse: No Hx Substance Use: No - SURGICAL HISTORY Hx Cataract Extraction: Yes Other/Comment: DIANA AV Fistula - ANESTHESIA Hx Anesthesia: Yes Hx Anesthesia Reactions: No Hx Malignant Hyperthermia: No Meds Allergies/Adverse Reactions: Allergies Allergy/AdvReac Type Severity Reaction Status Date / Time No Known Allergies Allergy Verified 08/24/17 16:02 - Medications Medications: Current Medications Acetaminophen (Tylenol 325mg Tab) 650 mg PO Q6H PRN PRN Reason: TEMP>=99.5F Aspirin (Ecotrin) 81 mg PO DAILY [facility] Atorvastatin Calcium (Lipitor) 80 mg PO DIN [facility] Last Admin: 08/24/17 18:32 Dose: 80 mg Calcium Acetate (Phoslo) 1,334 mg PO TID [facility] Cinacalcet (Sensipar) 30 mg PO DAILY [facility] Docusate Sodium (Colace) 100 mg PO TID [facility] Duloxetine HCl (Cymbalta) 60 mg PO DAILY [facility] Ergocalciferol (Drisdol 50,000 Intl Units Cap) 1 cap PO Q7D [facility] Last Admin: 08/24/17 21:15 Dose: Not Given Folic Acid (Folic Acid) 5 mg PO DAILY [facility] Ceftaroline Fosamil 200 mg/ (Sodium Chloride) 100 mls @ 100 mls/hr IVPB Q12 [facility] PRN Reason: Protocol Stop: 08/25/17 10:59 Vancomycin HCl (Vancomycin 1gm) 1 gm in 250 mls @ 167 mls/hr IVPB DAILY [facility] PRN Reason: Protocol Insulin Human Lispro (Humalog Med) 0 units SC AC [facility] PRN Reason: Protocol Losartan Potassium (Cozaar) 100 mg PO DAILY [facility] Morphine Sulfate (Morphine) 2 mg IVP Q6H PRN PRN Reason: Pain, moderate (4-7) Last Admin: 08/25/17 05:48 Dose: 2 mg Pantoprazole Sodium (Protonix Ec Tab) 20 mg PO 0600,1600 [facility] Last Admin: 08/25/17 05:05 Dose: 20 mg Sennosides (Senokot Tab) 17.2 mg PO [facility] Last Admin: 08/24/17 22:48 Dose: 17.2 mg Physical Exam - Constitutional Appears: Non-toxic - Head Exam Head Exam: NORMAL INSPECTION - Respiratory Exam Respiratory Exam: Decreased Breath Sounds - Cardiovascular Exam Cardiovascular Exam: +S1, +S2 - GI/Abdominal Exam GI & Abdominal Exam: Soft. absent: Tenderness - Extremities Exam Additional comments: right foot with dressings in place Results - Vital Signs Recent Vital Signs: Last Vital Signs Temp 97.6 F 08/24/17 16:06 Pulse 72 08/24/17 23:57 Resp 19 08/24/17 23:57 BP 156/84 H 08/24/17 23:57 Pulse Ox 98 08/24/17 21:28 - Labs Result Diagrams: 08/25/17 10:30 08/25/17 10:30 Assessment & Plan - Assessment and Plan (Free Text) Plan: Assessment Consider right foot skin and skin structure infection, severe, R/O osteomyelitis ESRD on HD history of CVA HTN cataracts DM Plan Started patient on Teflaro pending blood and wound cx, doppler U/S of extremities and MRI of right foot follow up Podiatry evaluation and recommendations will monitor clinically
[2017-08-25] MEDS ORDERED: Darbepoetin Alfa 25 mcg/ml Inj IVP ONE (12:32)
--- NOTE | 2017-08-25 15:26 | CP.PCM.CON ---
History of Present Illness - History of Present Illness History of Present Illness: Podiatry Consult Note - Dr. Schneider 66 year old male patient PMHx IDDM, HTN, ESRD on HD MWF, CVA, cataracts seen and evaluated at bedside for pain in right 5th toe. Patient states about 1 month ago, he presented to Dr. Schneider's office complaining of pain in his right 5th digit, and at that time was told pain may be due to neuropathy. Pain still persisted, and about 2-3 weeks ago, after his first visit with Dr. Schneider, saw his PMD Dr. Rincon; was given medication however did not provide relief of symptoms. Patient relates that yesterday he saw Dr. Schneider again with worsening symptoms, and was sent to [facility] for further workup of infected 5th digit gangrene. Currently, patient endorses 10/10 pain in his 5th digit, well- controlled via pain medications. Patient offers no other pedal complaints. Denies N/V/F/D/C/SOB. Review of Systems - Review of Systems All systems: reviewed and no additional remarkable complaints except (as per HPI ) Past Patient History - Infectious Disease Hx of Infectious Diseases: None - Tetanus Immunizations Tetanus Immunization: Unknown - Past Social History Smoking Status: Never Smoked - CARDIAC Hx Cardiac Disorders: Yes Hx Hypertension: Yes - PULMONARY Hx Respiratory Disorders: Yes Hx Pneumonia: Yes - NEUROLOGICAL Hx Neurological Disorder: Yes HX Cerebrovascular Accident: Yes (as per pt in 07/2017) Hx Paralysis: No - HEENT Hx HEENT Problems: Yes Hx Cataracts: Yes - RENAL Hx Chronic Kidney Disease: Yes Hx Dialysis: Yes Type of Dialysis Access: L upper arm Date of Last Dialysis Treatment: 08/23/17 Hx Renal Failure: Yes (on HD (M/W/F)) - ENDOCRINE/METABOLIC Hx Endocrine Disorders: Yes Hx Diabetes Mellitus Type 2: Yes - HEMATOLOGICAL/ONCOLOGICAL Hx Blood Disorders: Yes Hx Blood Transfusions: Yes Hx Blood Transfusion Reaction: No - INTEGUMENTARY Hx Dermatological Problems: No - MUSCULOSKELETAL/RHEUMATOLOGICAL Hx Musculoskeletal Disorders: No - GASTROINTESTINAL Hx Gastrointestinal Disorders: No - GENITOURINARY/GYNECOLOGICAL Hx Genitourinary Disorders: No - PSYCHIATRIC Hx Emotional Abuse: No Hx Physical Abuse: No Hx Substance Use: No - SURGICAL HISTORY Hx Cataract Extraction: Yes Other/Comment: DIANA AV Fistula - ANESTHESIA Hx Anesthesia: Yes Hx Anesthesia Reactions: No Hx Malignant Hyperthermia: No Meds Allergies/Adverse Reactions: Allergies Allergy/AdvReac Type Severity Reaction Status Date / Time No Known Allergies Allergy Verified 08/24/17 16:02 - Medications Medications: Current Medications Acetaminophen (Tylenol 325mg Tab) 650 mg PO Q6H PRN PRN Reason: TEMP>=99.5F Last Admin: 08/25/17 11:25 Dose: 650 mg Aspirin (Ecotrin) 81 mg PO DAILY [facility] Last Admin: 08/25/17 09:17 Dose: 81 mg Atorvastatin Calcium (Lipitor) 80 mg PO DIN [facility] Last Admin: 08/24/17 18:32 Dose: 80 mg Calcium Acetate (Phoslo) 1,334 mg PO TID [facility] Last Admin: 08/25/17 09:17 Dose: 1,334 mg Cinacalcet (Sensipar) 30 mg PO DAILY [facility] Last Admin: 08/25/17 09:17 Dose: 30 mg Docusate Sodium (Colace) 100 mg PO TID [facility] Last Admin: 08/25/17 09:16 Dose: 100 mg Duloxetine HCl (Cymbalta) 60 mg PO DAILY [facility] Last Admin: 08/25/17 09:17 Dose: 60 mg Ergocalciferol (Drisdol 50,000 Intl Units Cap) 1 cap PO Q7D [facility] Last Admin: 08/24/17 21:15 Dose: Not Given Folic Acid (Folic Acid) 5 mg PO DAILY [facility] Last Admin: 08/25/17 09:17 Dose: 5 mg Ceftaroline Fosamil 200 mg/ (Sodium Chloride) 100 mls @ 100 mls/hr IVPB Q12 [facility] PRN Reason: Protocol Stop: 09/02/17 10:01 Last Admin: 08/25/17 12:49 Dose: Not Given Metronidazole (Flagyl) 500 mg in 100 mls @ 100 mls/hr IVPB Q8 [facility] PRN Reason: Protocol Insulin Human Lispro (Humalog Med) 0 units SC [facility] PRN Reason: Protocol Last Admin: 08/25/17 12:51 Dose: Not Given Losartan Potassium (Cozaar) 100 mg PO DAILY [facility] Last Admin: 08/25/17 09:16 Dose: Not Given Morphine Sulfate (Morphine) 2 mg IVP Q6H PRN PRN Reason: Pain, moderate (4-7) Last Admin: 08/25/17 12:25 Dose: 2 mg Pantoprazole Sodium (Protonix Ec Tab) 20 mg PO 0600,1600 [facility] Last Admin: 08/25/17 05:05 Dose: 20 mg Sennosides (Senokot Tab) 17.2 mg PO HS [facility] Last Admin: 08/24/17 22:48 Dose: 17.2 mg Physical Exam - Constitutional Appears: Well, Non-toxic, No Acute Distress - Extremities Exam Additional comments: VASC: DP pulses palpable 2/4 b/l. PT pulses weakly palpable 1/4 b/l. CFT <3 seconds to left digits 1-5 and right digits 1-4, unable to be assessed right 5th digit. Temperature gradient warm to cool; digits cool to touch b/l. Mild pitting edema noted to bilateral LE. NEURO: Gross sensation diminished. DERM: Right 5th digit appears necrotic with demarcated border at the base of digit, missing nail 5, malodor present; no drainage, no purulence, no fluctuance. Right 4th interspace is macerated. Diffuse xerosis bilateral LE. ORTHO: Pain on palpation right 5th digit. Muscle strength 5/5 for all dorsiflexors, plantarflexors, inverters, and everters b/l. Digital ROM 1-5 b/l. - Neurological Exam Neurological exam: Alert, Oriented x3 - Psychiatric Exam Psychiatric exam: Normal Affect, Normal Mood Results - Vital Signs Recent Vital Signs: Last Vital Signs Temp 97.7 F 08/25/17 07:59 Pulse 64 08/25/17 07:59 Resp 20 08/25/17 07:59 BP 138/51 L 08/25/17 07:59 Pulse Ox 96 08/25/17 07:59 - Labs Result Diagrams: 08/25/17 10:30 08/25/17 10:30 Labs: Laboratory Results - last 24 hr 08/25/17 08/25/17 08/25/17 06:30 06:30 07:31 WBC RBC Hgb Hct MCV MCH MCHC RDW Plt Count MPV Gran % Lymph % (Auto) Dickinson % (Auto) Eos % (Auto) Baso % (Auto) Gran # Lymph # (Auto) Dickinson # (Auto) Eos # (Auto) Baso # (Auto) PT 21.9 H INR 1.88 H APTT 26.5 Sodium Potassium Chloride Carbon Dioxide Anion Gap BUN Creatinine Est GFR ( Amer) Est GFR (Non-Af Amer) POC Glucose (mg/dL) 161 H Random Glucose Calcium Magnesium Total Bilirubin Direct Bilirubin AST ALT Alkaline Phosphatase Total Protein Albumin Globulin Albumin/Globulin Ratio Procalcitonin 1.46 H 08/25/17 08/25/17 08/25/17 10:30 10:30 15:11 WBC 10.0 RBC 3.51 Hgb 10.1 L Hct 31.5 L MCV 89.7 MCH 28.8 MCHC 32.1 RDW 14.9 H Plt Count 284 MPV 9.8 Gran % 74.0 H Lymph % (Auto) 15.4 L Dickinson % (Auto) 8.0 H Eos % (Auto) 2.5 Baso % (Auto) 0.1 Gran # 7.37 H Lymph # (Auto) 1.5 Dickinson # (Auto) 0.8 H Eos # (Auto) 0.3 Baso # (Auto) 0.01 PT INR APTT Sodium 139 Potassium 3.9 Chloride 97 L Carbon Dioxide 28 Anion Gap 17 BUN 32 H Creatinine 8.8 H* D Est GFR ( Amer) 7 Est GFR (Non-Af Amer) 6 POC Glucose (mg/dL) 104 Random Glucose 138 H Calcium 8.9 Magnesium 2.2 Total Bilirubin 0.6 Direct Bilirubin 0.6 H AST 38 ALT 18 Alkaline Phosphatase 148 H Total Protein 7.2 Albumin 3.7 Globulin 3.5 Albumin/Globulin Ratio 1.0 L Procalcitonin Assessment & Plan - Assessment and Plan (Free Text) Assessment: 66 year old male with right 5th digit gangrene r/o osteomyelitis Plan: Patient seen and evaluated Discussed with attending, Dr. Schneider Afebrile, WBC 10.0, ESR 114, procalcitonin 1.46 R 5th digit WCx pending R foot XR reviewed: Negative f/u RLE venous duplex report f/u RLE arterial duplex report MRI ordered, f/u report Betadine applied to right 5th digit and dressed with DSD Surgical shoe ordered Continue abx per ID - Ceftaroline, awaiting blood cx and wound cx Pain mgmt per medicine - Morphine Podiatry will continue to follow patient while in house
[2017-08-25] MEDS: metroNIDAZOLE IV 500 mg/100 ml 500 MG/100 ML BAG IVPB SCH ×2 (16:07→21:30)
--- NOTE | 2017-08-25 19:55 | US ---
HISTORY: Leg pain and swelling. Evaluate for DVT PHYSICIAN(S): Mayito Valdes MD. TECHNIQUE: Duplex sonography and color-flow Doppler with graded compression were used to evaluate the deep venous systems of both lower extremities. FINDINGS: The visualized deep venous systems of both lower extremities are sonographically normal and compressible. Normal wave forms and augmentation are seen. There is no sonographic evidence for deep venous thrombosis in the visualized segments of both lower extremities. IMPRESSION: No sonographic evidence for deep venous thrombosis in the visualized segments of both lower extremities.
--- NOTE | 2017-08-25 19:56 | US ---
PROCEDURE: Lower extremity ASHELY exam HISTORY: Peripheral vascular disease with 5th toe digital gangrene. Diabetes. Dialysis. PHYSICIAN(S): Mayito Valdes MD. FINDINGS: The resting ASHELY's are inaccurate due to calcified vessels. The PVR waveforms are normal to the ankle on the left. The distal waveforms are noncompressible, consistent with calcification. The right calf PVR waveform is moderately blunted and does not augment. This is consistent with right SFA occlusive disease. The right ankle and metatarsal waveforms are severely blunted. IMPRESSION: 1. Limited study due to calcified vessels. 2. Right SFA occlusive disease. 3. The right distal waveforms are severely blunted
--- NOTE | 2017-08-26 02:23 | PN ---
DATE: 08/25/2017 SUBJECTIVE: The patient was seen in room 564 plus the patient was also seen in hemodialysis. Overnight nurse's notes were reviewed. The patient still has the right foot pain, which is 50:50 better. PHYSICAL EXAMINATION: VITAL SIGNS: T-max 98.9. Pulse 69, 65, 72. Blood pressure 132/78, 138/51, 156/84, 142/73; respiration 20; O2 sat 99%. HEENT: Head examination normocephalic, atraumatic. HEENT examination shows pinkish conjunctivae. Anicteric sclerae. No oropharyngeal lesion. No neck rigidity. No jugular venous distention. CHEST: Kyphosis. LUNGS: Shows decreased breath sound at the bases, left more than the right. CARDIOVASCULAR: S1, S2. Regular rhythm. Positive systolic murmur, right second intercostal space, left second intercostal space, left sternal border. ABDOMEN: Morbidly obese. No hepatosplenomegaly noted. Abdomen is obese, protuberant. GENITALIA: Male. RECTAL: Deferred. EXTREMITIES: Positive left upper extremity AV fistula. Positive thrill. Lower extremity shows positive dressing of the right foot toe. Positive lymphedema of the lower extremity. MUSCULOSKELETAL: Shows a body mass index of 60. NEUROLOGIC: The patient is alert, awake, oriented x3. Cranial II through XII intact. Gait examination is not tested. DIAGNOSTICS: On 08/25/2017, WBC 10.0, hemoglobin and hematocrit 10.1 and 31.5, platelet 284. Granulocytes 74% segs. PT 21.9, INR 1.88. Sodium 139, potassium 3.9, chloride 97, CO2 of 28, anion gap 17, BUN 32, creatinine 8.8, GFR 7. Glucose 149, 104, 138, 161. Calcium 8.9, magnesium 2.2. LFT shows alk phos 148. C-reactive protein is greater than 15. Procalcitonin 1.46. Microbiology: Blood cultures, wound cultures still pending. Venous Doppler of the lower extremity is negative for DVT. Arterial Doppler of the lower extremity shows calcified blood vessels and blunted right calf peripheral vascular resistance waveform consistent with right superficial femoral artery occlusive disease with severe blunted right ankle and metatarsal waveform. The patient's MRI of the foot is pending. The patient was seen by Podiatry, Infectious Disease. IMPRESSION AND PLAN: 1. Acute right foot fifth toe gangrene versus possible osteomyelitis. 2. Right lower extremity peripheral vascular disease. 3. Possible right foot fifth toe diabetic foot ulcer versus cellulitis. 4. Hypertension. 5. End-stage renal disease, hemodialysis dependent three times a week via the left upper extremity fistula. 6. Normocytic anemia. 7. Elevated erythrocyte sedimentation rate of 114. 8. Coumadin-dependent cerebral infarct. 9. Insulin-requiring diabetes mellitus with hyperglycemia. 10. Elevated C-reactive protein of greater than 15. 11. Hyperprocalcitoninemia. 12. Hyperglycemia. 13. Right superficial femoral artery occlusive disease. 14. Severely blunted right distal blood vessel waveform. 15. Calcified peripheral vascular disease. 16. Right leg moderately blunted peripheral vascular resistance waveform consistent with right superficial femoral artery occlusive disease. 17. Severely blunted right ankle and metatarsal waveform. 18. Morbid obesity. 1. Right foot fifth toe gangrene versus diabetic foot ulceration versus questionable underlying osteomyelitis. 2. Right foot fifth toe pain secondary to above. 3. Questionable possible severe diabetic neuropathy. 4. Normocytic anemia. 5. Elevated erythrocyte sedimentation rate of 114. 6. Coumadin-requiring atrial fibrillation with severe aortic valvular stenosis and mitral stenosis. 7. End-stage renal disease, hemodialysis dependent via the left upper extremity arteriovenous fistula. 8. Severe bilateral lower extremity lymphedema. 9. Elevated C-reactive protein of greater than 15. 10. Insulin-requiring diabetes mellitus. 11. History of diabetes. 12. History of hypertension. 13. History of dyslipidemia. 14. History of hypovitaminosis D. 15. History of diabetic neuropathy. 16. History of hyperlipidemia. 17. History of gastroesophageal reflux. 18. History of right foot pain. 1. Multiple acute cerebral infarct, probably multiple acute embolic cerebral infarct. 2. Severe aortic stenosis. 3. Left upper extremity arteriovenous fistula bleeding. 4. Multiple acute embolic cerebral infarct symptomatic with symptoms of dizziness, gait dysfunction. 5. End-stage renal disease, hemodialysis dependent via the left upper extremity arteriovenous fistula three times a week. 6. Anemia. 7. Insulin-requiring diabetes mellitus. 8. History of coronary artery disease. 9. Gait dysfunction. 10. Morbid obesity. 11. Bilateral lower extremity lymphedema. 12. Hypertension. 13. Secondary hyperparathyroidism. 14. Dyslipidemia. 1. Left arteriovenous fistula site bleeding, probably secondary to heparin anticoagulation. 2. Multiple acute cerebral infarct. 3. Multiple acute embolic cerebral infarct with symptoms of dizziness, weakness and gait dysfunction. 4. End-stage renal disease, hemodialysis dependent. 5. Lymphedema of the lower extremity. 6. Normocytic anemia. 7. Insulin-requiring diabetes mellitus with hyperglycemia and hemoglobin A1c of 7.8. 8. Hyperphosphatemia. 9. Hypovitaminosis D. 10. Hypertriglyceridemia. 11. Hypercholesterolemia. 12. Elevated LDL. 13. Diffuse bilateral slowing with abnormal EEG consistent with bilateral cerebral dysfunction. 14. Gait dysfunction. 15. Left upper extremity arteriovenous fistula site bleeding secondary to heparin anticoagulation. 1. Acute cerebral infarct symptomatic with symptoms of dizziness and gait dysfunction. 2. Acute embolic multiple cerebral infarct. 3. End-stage renal disease, hemodialysis dependent three times a week via left upper extremity AV fistula. 4. Embolic acute cerebrovascular accident. 5. Severe to critical aortic stenosis. 6. Abnormal EEG with presence of diffuse slowing consistent with mild bilateral cerebral dysfunction. 7. Hypertension. 8. Transient hypoxemia. 9. Normocytic anemia. 10. Insulin-requiring diabetes mellitus, uncontrolled with hemoglobin A1c of 7.8. 11. Hypovitaminosis D. 12. Hypertriglyceridemia, hypercholesteremia with elevated LDL and decreased HDL. 13. Gait dysfunction. 14. Deconditioning. 15. Bilateral lower extremity lymphedema. 16. Dyslipidemia. 17. Secondary hyperparathyroidism. 1. Multiple acute infarcts, dominant 3-mm infarct in the right parietal lobe with multiple acute smaller infarcts in the right parietal, right frontal, and left temporal lobes. 2. Gait dysfunction. 3. Dizziness. 4. Right parietal lobe 3.5-cm acute infarct. 5. Multiple acute smaller infarcts involving the right parietal lobe, right frontal lobe, left temporal lobe with punctate appearance. 6. Bilateral basal ganglia right centrum semiovale and left pontine multiple old chronic lacunar infarcts. 7. Chronic small vessel ischemic disease of the brain. 8. Left mastoid air cell fluid, questionable mastoiditis. 9. Left ventricular ejection fraction of 60%. 10. Severe valvular aortic stenosis. 11. Pulmonary arterial hypertension with right ventricular systolic pressure of 46 mmHg. 12. Concentric left ventricular atrophy. 13. Moderately dilated left atrium. 14. Calcified aortic valve with decreased opening. 15. Mild aortic regurgitation. 16. Severe valvular aortic stenosis. 17. Trace mitral regurgitation. 18. Moderate mitral stenosis. 19. Deconditioning. 20. Gait dysfunction. 21. Lymphedema of the lower extremity. 22. End-stage renal disease, hemodialysis dependent three times a week via the left upper extremity arteriovenous fistula. 23. Diffuse slowing on the consistent with bilateral cerebral dysfunction. 24. Insulin-requiring diabetes mellitus with hyperglycemia and hemoglobin A1c of 7.8. 25. History of hypertension. 26. Normocytic anemia. 27. Secondary hyperparathyroidism. 28. Uncontrolled insulin-requiring diabetes mellitus with hemoglobin A1c of 7.8. 29. Hypercholesteremia, hypertriglyceridemia with elevated high density lipoprotein and decreased low density lipoprotein. 30. Hypovitaminosis D. 1. Multiple acute brain infarct, probably embolic with right parietal lobe 3-cm dominant infarct and multiple acute infarct in the right parietal, right frontal and left temporal lobes. 2. Left internal carotid artery cavernous and supraclinoid segment stenosis. 3. Renal osteodystrophy. 4. Bilateral cerebral dysfunction. 5. Headache, dizziness, weakness and possible gait dysfunction. 6. Morbid obesity with elevated body mass index of 60. 7. Bilateral lower extremity lymphedema. 8. Chronic venous stasis of the lower extremity. 9. Normocytic anemia. 10. Insulin-requiring diabetes mellitus with hyperglycemia and hemoglobin A1c of 7.8. 11. Hyperglycemia. 12. Hypovitaminosis D. 13. Hypertriglyceridemia, hypercholesteremia with decreased HDL. 14. History of poor compliance. 15. Left ventricular ejection fraction of 60%. 16. Pulmonary arterial hypertension with right ventricular systolic pressure of 46 mmHg 17. Moderate concentric left ventricular hypertrophy. 18. Moderately dilated left atrium. 19. Calcified aortic valve with decreased opening and mild aortic regurgitation. 20. Severe valvular aortic stenosis. 21. Trace mitral regurgitation. 22. Moderate mitral stenosis. 23. Tricuspid regurgitation with right ventricular systolic pressure of 46 mmHg and pulmonary arterial hypertension. 24. Left internal carotid artery narrowing and irregularities of the cavernous and supraclinoid segment compatible with stenosis. 25. Calcified plaque of the left internal carotid artery cavernous and supraclinoid segment. 26. Nonvisualized left anterior cerebral artery. 27. Left lower lobe lingular atelectasis and scarring. 28. Right lung noncalcified 3-mm pulmonary nodule. 29. Cardiomegaly. 30. Bilateral gynecomastia. 31. Left subclavian vein stenting. 32. Possible chronic occlusion of the right brachiocephalic vein. 33. Pulmonary hypertension. 34. Mediastinal lymphadenopathy. 35. Cholelithiasis. 36. Renal osteodystrophy with diffusely dense appearance of the bones and multiple vertebral endplate lucencies and degenerative Schmorl node. 37. Pulmonary nodule. 38. Bilateral 20% to 39% proximal internal carotid artery stenosis. 39. Multiple acute infarct involving the cortex and subcortical white matter and a dominant acute infarct in the right parietal lobe, 3.5 cm, with multiple smaller acute infarct of the right parietal lobe, right frontal lobe and left temporal lobe with punctate appearance. 40. Bilateral basal ganglia, multiple small old chronic lacunar infarct of the bilateral basal ganglia, right centrum semiovale and left neelima area. 41. Chronic microvascular ischemic disease of the brain throughout the brain white matter bilaterally. 42. Left mastoid air cell fluid. 43. Left lower lobe airspace disease, questionable atelectasis or pneumonia. 44. Chronic microangiopathic changes of the brain. 45. Unchanged mid occipital soft tissue swelling. 46. End-stage renal disease, hemodialysis dependent three times a week with left upper extremity arteriovenous fistula. Plan at this time, the patient is to be continued on above therapeutic intervention with pending evaluation by all other specialties. The patient's further management will be dependent upon the patient's clinical condition, hemodynamic status and as per the patient's response to therapeutic intervention and as per recommendation by all the physicians involved in the care of the patient. The patient's case was discussed with Dr. Mayito Valdes. His recommendation is that the patient will most likely benefit from angiogram followed by immediate dialysis because of the abnormal arterial Doppler. At present, the patient was explained about the details of his condition. We will await further management by Interventional Radiology regarding timing of the angiogram. The patient is to be continued on following medications at present. The patient is to be continued on serial labs, serial PT/PTT. Consultation and followup with Dr. Mayito Valdes, Nephrology, Podiatry, Infectious Disease and Cardiology. Referral for Transitional Care Unit made. The patient was given a dose of Aranesp 25 mcg IV x1, Colace 100 mg three times a day, Cozaar 100 mg daily, Cymbalta 60 mg daily, Drisdol 50,000 units weekly, Ecotrin 81 mg daily, Flagyl 500 mg IV q. 8 ordered by Infectious Disease, folic acid 5 mg daily, Humalog medium-dose sliding scale coverage, Lipitor 80 mg daily, morphine 2 mg IV q. 6 p.r.n., PhosLo 1334 mg three times a day, Protonix 40 mg daily, Senokot 17.2 mg at bedtime, Sensipar 30 mg daily, Teflaro 200 mg IV q. 12, Tylenol 650 mg q. 6 p.r.n. The patient was given vancomycin, Zosyn in the last 24 hours also. The patient's MRI of the right foot is pending. The patient is on renal diet. Out of bed, physical therapy, fingerstick blood sugar, occupational therapy ordered. The patient is seen by the physical therapist. The patient is seen by Vocational Guidance Counselor. The patient's case is referred for Transitional Care Unit. At present, we are awaiting for above therapeutic intervention. Dictated and electronically signed, not read. Steve Rincon MD MTDD
[2017-08-26] MEDS: metroNIDAZOLE IV 500 mg/100 ml 500 MG/100 ML BAG IVPB SCH ×3 (06:02→22:56)
[2017-08-26] MEDS: Pantoprazole 20 mg EC Tab PO SCH ×2 (06:02→19:15)
[2017-08-26 07:13] LABS: BASO # 0.01 K/mm3 (0.0-2.0); BASO % 0.1 % (0.0-3.0); EOS # 0.2 (0.0-0.7); EOS % 2.3 % (1.5-5.0); GRAN # 6.34 (1.4-6.5); GRAN % 71.8 % (50.0-68.0); HEMOGLOBIN 9.3 g/dL (14.0-18.0); LYMPH # 1.4 (1.2-3.4); LYMPH % 15.8 % (22.0-35.0); MEAN CELL VOLUME 90.6 fl (80.0-105.0); MEAN CORPUSCULAR HEMOGLOBIN 28.1 pg (25.0-35.0); MEAN PLATELET VOLUME 9.5 fl (7.0-11.0); MONO # 0.9 (0.1-0.6); RBC 3.31 10^6/uL (3.5-6.1); WHITE BLOOD COUNT 8.8 10^3/ul (4.5-11.0)
[2017-08-26 07:23] LABS: INR 1.75 (0.93-1.08); PARTIAL THROMBOPLASTIN TIME 32.5 Seconds (25.1-36.5); PROTHROMBIN TIME 20.4 SECONDS (9.4-12.5)
[2017-08-26 07:32] LABS: ALBUMIN 3.4 g/dL (3.0-4.8); BILIRUBIN,DIRECT 0.6 mg/dL (0.0-0.4); CALCIUM 8.6 mg/dL (8.4-10.5); MAGNESIUM 1.9 mg/dL (1.7-2.2)
[2017-08-26] MEDS: Insulin Lispro (humaLOG) MEDIUM Coverage SC SCH ×3 (08:22→16:59)
--- NOTE | 2017-08-26 08:26 | CON ---
DATE: 08/25/2017 REASON FOR CONSULTATION: NIDDM, hypertension, need for dialysis. HISTORY OF PRESENTING ILLNESS: A 66-year-old male known to me from outpatient dialysis, was sent to the emergency room from the manager paper's office because of infected toe on the right foot, pre gangrene. He is a 66-year-old male with a history of NIDDM, hypertension, recent CVA, ESRD. He complains of pain in the fifth metatarsal of the right foot for 3 weeks. He reports he saw the Podiatry 1 month ago. At that time also, he had some pain, but at that time, there was no infection. He went back to the manager paper yesterday because of worsening pain and was sent to the emergency room for onset of gangrene. He denies any fevers, chills. He denies any nausea, vomiting. He denies any headaches. He denies any chest pain. PAST MEDICAL AND SURGICAL HISTORY: NIDDM, hypertension, obesity, ESRD, anemia of chronic kidney disease, CVA. FAMILY HISTORY: Hypertension. SOCIAL HISTORY: No smoking, no alcohol use, no IV drug abuse. ALLERGIES: NO KNOWN DRUG ALLERGIES. MEDICATIONS: Tramadol, Coumadin, Protonix, losartan, folic acid, vitamin D, Sensipar, PhosLo, Lipitor, aspirin, Tylenol. REVIEW OF SYSTEMS: All systems are reviewed, pertinent positives as mentioned in the history of presenting illness, rest unremarkable. PHYSICAL EXAMINATION: GENERAL: Obese, elderly male, seen in the dialysis unit. He is awake, he is alert. VITAL SIGNS: Blood pressure 138/51, heart rate 64, respiratory rate 20, temperature 97.7. HEENT: Normocephalic, atraumatic. NECK: Supple, no JVD. LUNGS: Bilateral equal entry, bilateral equal expansion, no rales. CARDIAC: S1 and S2. Regular rate and rhythm. No murmur, no rub. ABDOMEN: Obese, distended, soft, nontender, bowel sounds present. EXTREMITIES: Dressing of the toes on the right foot, 1+ pitting edema of the lower extremities. INTAKE AND OUTPUT: Not charted. LABORATORY DATA: WBC 10, hemoglobin 10, hematocrit 32, platelets 284. Sodium 139, potassium 3.9, chloride 97, CO2 28, BUN 32, creatinine 8.8, glucose 138, calcium 8.9, magnesium 2.2, albumin 3.7. CURRENT MEDICATIONS: Ceftaroline 200 q. 12, Colace, Cozaar 100, Cymbalta, Drisdol, Ecotrin, Flagyl, folic acid, Lipitor, morphine, PhosLo, Protonix, Sensipar 30 daily, Tylenol, vancomycin 1 g given in the ER yesterday, Zosyn 2.25. ASSESSMENT: 1. Infected toe on the right foot. 2. Impending gangrene. 3. Non-insulin dependent diabetes mellitus. 4. Hypertension. 5. Obesity. 6. Recent cerebrovascular accident. 7. End-stage renal disease. 8. Anemia of chronic kidney disease. PLAN: 1. Teflaro antibiotics as per ID recommendations. 2. Follow up wound culture. 3. Rule out osteomyelitis. 4. Dialysis today. 5. Further recommendations to follow. Svetlana Hillman MD
--- NOTE | 2017-08-26 11:19 | CP.PCM.PN ---
Subjective - Date & Time of Evaluation Date of Evaluation: 08/26/17 Time of Evaluation: 06:45 - Subjective Subjective: Podiatry Progress Note - Dr. Schneider 66 year old male patient PMHx IDDM, HTN, ESRD on HD MWF, CVA, cataracts, seen and evaluated at bedside for pain in right 5th toe due to ischemia. Patient sleeping at time of visit, NAD. No acute events overnight. Patient reports continued pain to right 5th digit, well-controlled. Denies N/V/F/D/C/SOB/calf pain. Objective - Vital Signs/Intake and Output Vital Signs (last 24 hours): Temp Pulse Resp BP Pulse Ox 98.2 F 80 20 120/64 95 08/26/17 07:30 08/26/17 07:30 08/26/17 07:30 08/26/17 07:30 08/26/17 07:30 Intake and Output: 08/26/17 08/26/17 06:59 18:59 Intake Total 580 Balance 580 - Medications Medications: Current Medications Acetaminophen (Tylenol 325mg Tab) 650 mg PO Q6H PRN PRN Reason: TEMP>=99.5F Last Admin: 08/25/17 11:25 Dose: 650 mg Aspirin (Ecotrin) 81 mg PO DAILY [facility] Last Admin: 08/25/17 09:17 Dose: 81 mg Atorvastatin Calcium (Lipitor) 80 mg PO DIN [facility] Last Admin: 08/25/17 17:59 Dose: 80 mg Calcium Acetate (Phoslo) 1,334 mg PO TID [facility] Last Admin: 08/25/17 17:59 Dose: 1,334 mg Cinacalcet (Sensipar) 30 mg PO DAILY [facility] Last Admin: 08/25/17 09:17 Dose: 30 mg Docusate Sodium (Colace) 100 mg PO TID [facility] Last Admin: 08/25/17 17:59 Dose: 100 mg Duloxetine HCl (Cymbalta) 60 mg PO DAILY [facility] Last Admin: 08/25/17 09:17 Dose: 60 mg Ergocalciferol (Drisdol 50,000 Intl Units Cap) 1 cap PO Q7D [facility] Last Admin: 08/24/17 21:15 Dose: Not Given Folic Acid (Folic Acid) 5 mg PO DAILY [facility] Last Admin: 08/25/17 09:17 Dose: 5 mg Ceftaroline Fosamil 200 mg/ (Sodium Chloride) 100 mls @ 100 mls/hr IVPB Q12 [facility] PRN Reason: Protocol Stop: 09/02/17 10:01 Last Admin: 08/25/17 22:26 Dose: 100 mls/hr Metronidazole (Flagyl) 500 mg in 100 mls @ 100 mls/hr IVPB Q8 [facility] PRN Reason: Protocol Last Admin: 08/26/17 06:02 Dose: 100 mls/hr Heparin Sodium/Sodium Chloride (Heparin 32226 Units/250ml 1/2 Normal Saline) 25 ,000 units in 250 mls @ 12.755 mls/hr IV .[id number] PRN; Protocol; 7.6 UNITS/KG/HR PRN Reason: ADJUST RATE PER PROTOCOL Insulin Human Lispro (Humalog Med) 0 units SC AC [facility] PRN Reason: Protocol Last Admin: 08/26/17 08:22 Dose: 1 units Losartan Potassium (Cozaar) 100 mg PO DAILY [facility] Last Admin: 08/25/17 09:16 Dose: Not Given Morphine Sulfate (Morphine) 2 mg IVP Q6H PRN PRN Reason: Pain, moderate (4-7) Last Admin: 08/25/17 18:02 Dose: 2 mg Pantoprazole Sodium (Protonix Ec Tab) 20 mg PO 0600,1600 [facility] Last Admin: 08/26/17 06:02 Dose: 20 mg Sennosides (Senokot Tab) 17.2 mg PO HS [facility] Last Admin: 08/25/17 21:31 Dose: 17.2 mg - Labs Labs: 08/26/17 06:20 08/26/17 06:20 PT 20.4 SECONDS (9.4-12.5) H 08/26/17 06:20 INR 1.75 (0.93-1.08) H 08/26/17 06:20 APTT 32.5 Seconds (25.1-36.5) 08/26/17 06:20 - Constitutional Appears: Well, Non-toxic, No Acute Distress - Extremities Exam Additional comments: VASC: DP pulses palpable 2/4 b/l. PT pulses weakly palpable 1/4 b/l. CFT <3 seconds to left digits 1-5 and right digits 1-4, unable to be assessed right 5th digit. Temperature gradient warm to cool; digits cool to touch b/l. Mild pitting edema noted to bilateral LE. NEURO: Gross sensation diminished. DERM: Right 5th digit appears necrotic with demarcated border at the base of digit, missing nail 5, malodor present however decreased from previous visit; no drainage, no purulence, no fluctuance. Right 4th interspace is macerated. Diffuse xerosis bilateral LE. ORTHO: Pain on palpation right 5th digit. Muscle strength 5/5 for all dorsiflexors, plantarflexors, inverters, and everters b/l. Digital ROM 1-5 b/l. - Neurological Exam Neurological Exam: Alert, Awake, Oriented x3 - Psychiatric Exam Psychiatric exam: Normal Affect, Normal Mood Assessment and Plan - Assessment and Plan (Free Text) Assessment: 66 year old male with right 5th digit gangrene r/o osteomyelitis Plan: Patient seen and evaluated with attending, Dr. Schneider Afebrile, WBC 8.8, ESR 114, procalcitonin 1.46 R foot XR reviewed: Negative Arterial duplex report: Limited study due to calcified vessels; right SFA occlusive disease; right distal waveforms are severely blunted Venous duplex report: Negative for DVT Per vascular, patient scheduled for angiogram tomorrow, Wednesday08/27/17 @ 07:30 R 5th digit WCx pending BCx pending Awaiting MRI report Betadine applied to right 5th digit and dressed with DSD Patient to be WBAT in surgical shoe Continue abx per ID - Ceftaroline, awaiting blood cx and wound cx Pain mgmt per medicine - Morphine Podiatry will continue to follow patient while in house
[2017-08-26] MEDS: Morphine 2 mg/ml ISec IVP PRN (11:46)
--- NOTE | 2017-08-26 12:24 | MRI ---
PROCEDURE: MRI Right Foot HISTORY: Pain, clinical concern for possible osteomyelitis right 5th digit. COMPARISON: None available. TECHNIQUE: Multiecho multiplanar sequences were performed through the right foot without the use of intravenous contrast. FINDINGS: BONES: There is a relative failure suppression of fat in the fat-suppressed coronal and axial poor density sequences which limits interpretation of digits. Similar changes appear to affect the great toe in the sagittal STIR series. No definite edema is appreciated at the great toe distally on T1 imaging. No definite pattern of osteomyelitis is appreciated throughout the right foot with the calcaneus not completely excluded in this examination. No fracture is identified or definite destructive bony lesion. No subluxation or dislocation is apparent. MUSCLES: Normal. SOFT TISSUES: Mild edema is appreciated within the plantar subcutaneous fat, minimal at the dorsal subcutaneous fat of the midfoot. No suspicious fluid collection identified grossly. LISFRANC LIGAMENT: No definite tear appreciated. PLANTAR PLATE: Borderline thickening of the plantar fascia may indicate an element of plantar fasciitis. EXTENSOR TENDONS: Intact without definitive tear. FLEXOR TENDONS: Intact without definitive tear. OTHER FINDINGS: None. IMPRESSION: A failure fat suppression of the digits in various fat-suppressed sequences limits interpretation however the definite pattern of osteomyelitis appreciated throughout the digits including the 5th digit. No definite evidence osteomyelitis throughout the remainder of the right foot with the exclusion of the posterior calcaneus which is not completely included in this examination. Limited cellulitis is seen in the plantar greater than dorsal soft tissues.
--- NOTE | 2017-08-26 12:35 | CP.PCM.PN ---
Subjective - Date & Time of Evaluation Date of Evaluation: 08/26/17 Time of Evaluation: 11:25 - Subjective Subjective: Had MRI done this morning, awaiting vascular studies, no fevers, still with pain in the right foot. Objective - Vital Signs/Intake and Output Vital Signs (last 24 hours): Temp Pulse Resp BP Pulse Ox 98.2 F 80 20 120/64 95 08/26/17 07:30 08/26/17 07:30 08/26/17 07:30 08/26/17 07:30 08/26/17 07:30 Intake and Output: 08/26/17 08/26/17 06:59 18:59 Intake Total 580 Balance 580 - Medications Medications: Current Medications Acetaminophen (Tylenol 325mg Tab) 650 mg PO Q6H PRN PRN Reason: TEMP>=99.5F Last Admin: 08/25/17 11:25 Dose: 650 mg Aspirin (Ecotrin) 81 mg PO DAILY [facility] Last Admin: 08/25/17 09:17 Dose: 81 mg Atorvastatin Calcium (Lipitor) 80 mg PO DIN [facility] Last Admin: 08/25/17 17:59 Dose: 80 mg Calcium Acetate (Phoslo) 1,334 mg PO TID [facility] Last Admin: 08/25/17 17:59 Dose: 1,334 mg Cinacalcet (Sensipar) 30 mg PO DAILY [facility] Last Admin: 08/25/17 09:17 Dose: 30 mg Docusate Sodium (Colace) 100 mg PO TID [facility] Last Admin: 08/25/17 17:59 Dose: 100 mg Duloxetine HCl (Cymbalta) 60 mg PO DAILY [facility] Last Admin: 08/25/17 09:17 Dose: 60 mg Ergocalciferol (Drisdol 50,000 Intl Units Cap) 1 cap PO Q7D [facility] Last Admin: 08/24/17 21:15 Dose: Not Given Folic Acid (Folic Acid) 5 mg PO DAILY [facility] Last Admin: 08/25/17 09:17 Dose: 5 mg Ceftaroline Fosamil 200 mg/ (Sodium Chloride) 100 mls @ 100 mls/hr IVPB Q12 [facility] PRN Reason: Protocol Stop: 09/02/17 10:01 Last Admin: 08/25/17 22:26 Dose: 100 mls/hr Metronidazole (Flagyl) 500 mg in 100 mls @ 100 mls/hr IVPB Q8 [facility] PRN Reason: Protocol Last Admin: 08/26/17 06:02 Dose: 100 mls/hr Heparin Sodium/Sodium Chloride (Heparin 24738 Units/250ml 1/2 Normal Saline) 25 ,000 units in 250 mls @ 12.755 mls/hr IV .[id number] PRN; Protocol; 7.6 UNITS/KG/HR PRN Reason: ADJUST RATE PER PROTOCOL Insulin Human Lispro (Humalog Med) 0 units SC AC [facility] PRN Reason: Protocol Last Admin: 08/26/17 08:22 Dose: 1 units Losartan Potassium (Cozaar) 100 mg PO DAILY [facility] Last Admin: 08/25/17 09:16 Dose: Not Given Morphine Sulfate (Morphine) 2 mg IVP Q6H PRN PRN Reason: Pain, moderate (4-7) Last Admin: 08/25/17 18:02 Dose: 2 mg Pantoprazole Sodium (Protonix Ec Tab) 20 mg PO 0600,1600 [facility] Last Admin: 08/26/17 06:02 Dose: 20 mg Sennosides (Senokot Tab) 17.2 mg PO HS [facility] Last Admin: 08/25/17 21:31 Dose: 17.2 mg - Labs Labs: 08/26/17 06:20 08/26/17 06:20 PT 20.4 SECONDS (9.4-12.5) H 08/26/17 06:20 INR 1.75 (0.93-1.08) H 08/26/17 06:20 APTT 32.5 Seconds (25.1-36.5) 08/26/17 06:20 - Constitutional Appears: Non-toxic, Chronically Ill - Head Exam Head Exam: NORMAL INSPECTION - ENT Exam ENT Exam: Mucous Membranes Moist - Neck Exam Neck Exam: absent: Meningismus - Respiratory Exam Respiratory Exam: Decreased Breath Sounds - Cardiovascular Exam Cardiovascular Exam: +S1, +S2 - GI/Abdominal Exam GI & Abdominal Exam: absent: Tenderness - Extremities Exam Additional comments: right foot with dressings in place Assessment and Plan - Assessment and Plan (Free Text) Plan: Assessment Consider right foot skin and skin structure infection, severe, R/O osteomyelitis ESRD on HD history of CVA HTN cataracts DM Plan continue Teflaro and Flagyl pending blood and wound cx, vascular studies of extremities and MRI of right foot follow up Podiatry evaluation and recommendations will continue to monitor clinically
[2017-08-26] MEDS ORDERED: Heparin25000 units/250ml 1/2NS 25,000 UNITS/250 ML BAG IV PRN (18:00)
[2017-08-26] MEDS ORDERED: oxyCODONE 10 mg Immediate Release Tab PO ONE (20:46)
--- NOTE | 2017-08-26 23:41 | CP.PCM.PN ---
Objective - Vital Signs/Intake and Output Vital Signs (last 24 hours): Temp Pulse Resp BP Pulse Ox 97.9 F 71 16 154/70 H 98 08/26/17 16:00 08/26/17 16:00 08/26/17 16:00 08/26/17 16:00 08/26/17 16:00 Intake and Output: 08/26/17 08/27/17 18:59 06:59 Intake Total 470 Balance 470 - Medications Medications: Current Medications Acetaminophen (Tylenol 325mg Tab) 650 mg PO Q6H PRN PRN Reason: TEMP>=99.5F Last Admin: 08/25/17 11:25 Dose: 650 mg Aspirin (Ecotrin) 81 mg PO DAILY [facility] Last Admin: 08/26/17 11:50 Dose: 81 mg Atorvastatin Calcium (Lipitor) 80 mg PO DIN [facility] Last Admin: 08/26/17 19:14 Dose: 80 mg Calcium Acetate (Phoslo) 1,334 mg PO TID [facility] Last Admin: 08/26/17 19:14 Dose: 1,334 mg Cinacalcet (Sensipar) 30 mg PO DAILY [facility] Last Admin: 08/26/17 11:49 Dose: 30 mg Docusate Sodium (Colace) 100 mg PO TID [facility] Last Admin: 08/26/17 19:14 Dose: 100 mg Duloxetine HCl (Cymbalta) 60 mg PO DAILY [facility] Last Admin: 08/26/17 11:49 Dose: 60 mg Ergocalciferol (Drisdol 50,000 Intl Units Cap) 1 cap PO Q7D [facility] Last Admin: 08/24/17 21:15 Dose: Not Given Folic Acid (Folic Acid) 5 mg PO DAILY [facility] Last Admin: 08/26/17 11:49 Dose: 5 mg Ceftaroline Fosamil 200 mg/ (Sodium Chloride) 100 mls @ 100 mls/hr IVPB Q12 [facility] PRN Reason: Protocol Stop: 09/02/17 10:01 Last Admin: 08/26/17 21:40 Dose: 100 mls/hr Metronidazole (Flagyl) 500 mg in 100 mls @ 100 mls/hr IVPB Q8 [facility] PRN Reason: Protocol Last Admin: 08/26/17 22:56 Dose: 100 mls/hr Heparin Sodium/Sodium Chloride (Heparin 17304 Units/250ml 1/2 Normal Saline) 25 ,000 units in 250 mls @ 12.755 mls/hr IV .[id number] PRN; Protocol; 7.6 UNITS/KG/HR PRN Reason: ADJUST RATE PER PROTOCOL Insulin Human Lispro (Humalog Med) 0 units SC AC [facility] PRN Reason: Protocol Last Admin: 08/26/17 16:59 Dose: Not Given Losartan Potassium (Cozaar) 100 mg PO DAILY [facility] Last Admin: 08/26/17 11:49 Dose: 100 mg Morphine Sulfate (Morphine) 2 mg IVP Q6H PRN PRN Reason: Pain, moderate (4-7) Last Admin: 08/26/17 11:46 Dose: 2 mg Pantoprazole Sodium (Protonix Ec Tab) 20 mg PO 0600,1600 [facility] Last Admin: 08/26/17 19:15 Dose: 20 mg Sennosides (Senokot Tab) 17.2 mg PO HS [facility] Last Admin: 08/26/17 21:39 Dose: 17.2 mg - Labs Labs: 08/26/17 06:20 08/26/17 06:20 PT 20.4 SECONDS (9.4-12.5) H 08/26/17 06:20 INR 1.75 (0.93-1.08) H 08/26/17 06:20 APTT 32.5 Seconds (25.1-36.5) 08/26/17 06:20
--- NOTE | 2017-08-27 00:37 | PN ---
DATE: 08/26/2017 LOCATION: Patient is seen in room 564, bed 2. SUBJECTIVE: Patient is out of bed to chair. Patient is alert, awake, responsive. Patient reports that the right foot pain is less than since admission. Overnight nurse's notes were reviewed. No adverse events were documented. PHYSICAL EXAMINATION: VITAL SIGNS: T max is 98.2; pulse 71 to 80; blood pressure 154/70, 120/64, 153/71; respiration 20; O2 sat 98%. HEENT: Head: Examination normocephalic, atraumatic. HEENT examination shows pinkish pale conjunctivae. Anicteric sclerae. No oropharyngeal lesion. No neck rigidity. CHEST: Kyphosis. LUNGS: Shows no rales, crackles or wheezing. Decreased breath sound at the bases. CARDIOVASCULAR: Shows S1, S2. Positive systolic murmur left sternal border, left second intercostal space, right second intercostal space. ABDOMEN: Protuberant, obese. Positive bowel sounds. Unable to appreciate any hepatosplenomegaly. No guarding. No rigidity. No rebound tenderness noted. GENITALIA: Male. RECTAL: Examination is deferred. EXTREMITIES: Shows chronic swelling and lymphedema of the lower extremity noted. Positive right foot and toe dressing noted. VASCULAR: Decreased palpable pulses. MUSCULOSKELETAL: Examination shows a body mass index of 60. NEUROLOGIC: Patient is alert, awake, oriented x3. Cranial nerves II through XII grossly intact. LYMPHATICS: Not palpable. DIAGNOSTICS: WBC 8.8, hemoglobin/hematocrit 9.3 and 30.0, platelet 266. PT is down to 20.4, INR 1.75. Sodium 141; potassium 3.8; chloride 98; CO2 33; anion gap 14; BUN 17; creatinine 6.0; glucose 164, 149, 158, 139; calcium 8.6; magnesium 1.9; alk phos 140. Microbiology: Cultures from the right toe, gram-negative lars. Patient underwent MRI of the right foot. The results were noted, which shows no definite evidence of osteomyelitis. Cellulitis noted. IMPRESSION AND PLAN: 1. Right foot right toe skin and skin structure soft tissue infection. 2. Questionable osteomyelitis of the right foot digits including the fifth digit with relative failure suppression of the fat and the fat suppressed of the digit. 3. Cellulitis of the right foot. 4. Bilateral lower extremity lymphedema. 5. Morbid obesity. 6. Insulin-requiring diabetes mellitus. 7. Right foot fifth digit and foot gangrene. 8. Hypertension. 9. Normocytic anemia. 10. Granulocytosis. 11. Elevated erythrocyte sedimentation rate of greater than 114. 12. History of multiple acute cerebrovascular infarct with Coumadin requiring. 13. End-stage renal disease, hemodialysis dependent. 14. Hyperprocalcitoninemia. 15. Elevated C-reactive protein of greater than 15. 16. Hyperglycemia. 17. Gram-negative lars, right foot fifth toe, questionable osteomyelitis, cellulitis and gangrene. 19. History of recent cerebrovascular accident. 20. Constipation. 21. Diabetic neuropathy. 22. Hypovitaminosis D. 23. Dyslipidemia. 24. Secondary hyperparathyroidism. 1. Acute right foot fifth toe gangrene versus possible osteomyelitis. 2. Right lower extremity peripheral vascular disease. 3. Possible right foot fifth toe diabetic foot ulcer versus cellulitis. 4. Hypertension. 5. End-stage renal disease, hemodialysis dependent three times a week via the left upper extremity fistula. 6. Normocytic anemia. 7. Elevated erythrocyte sedimentation rate of 114. 8. Coumadin-dependent cerebral infarct. 9. Insulin-requiring diabetes mellitus with hyperglycemia. 10. Elevated C-reactive protein of greater than 15. 11. Hyperprocalcitoninemia. 12. Hyperglycemia. 13. Right superficial femoral artery occlusive disease. 14. Severely blunted right distal blood vessel waveform. 15. Calcified peripheral vascular disease. 16. Right leg moderately blunted peripheral vascular resistance waveform consistent with right superficial femoral artery occlusive disease. 17. Severely blunted right ankle and metatarsal waveform. 18. Morbid obesity. 1. Right foot fifth toe gangrene versus diabetic foot ulceration versus questionable underlying osteomyelitis. 2. Right foot fifth toe pain secondary to above. 3. Questionable possible severe diabetic neuropathy. 4. Normocytic anemia. 5. Elevated erythrocyte sedimentation rate of 114. 6. Coumadin-requiring atrial fibrillation with severe aortic valvular stenosis and mitral stenosis. 7. End-stage renal disease, hemodialysis dependent via the left upper extremity arteriovenous fistula. 8. Severe bilateral lower extremity lymphedema. 9. Elevated C-reactive protein of greater than 15. 10. Insulin-requiring diabetes mellitus. 11. History of diabetes. 12. History of hypertension. 13. History of dyslipidemia. 14. History of hypovitaminosis D. 15. History of diabetic neuropathy. 16. History of hyperlipidemia. 17. History of gastroesophageal reflux. 18. History of right foot pain. 1. Multiple acute cerebral infarct, probably multiple acute embolic cerebral infarct. 2. Severe aortic stenosis. 3. Left upper extremity arteriovenous fistula bleeding. 4. Multiple acute embolic cerebral infarct symptomatic with symptoms of dizziness, gait dysfunction. 5. End-stage renal disease, hemodialysis dependent via the left upper extremity arteriovenous fistula three times a week. 6. Anemia. 7. Insulin-requiring diabetes mellitus. 8. History of coronary artery disease. 9. Gait dysfunction. 10. Morbid obesity. 11. Bilateral lower extremity lymphedema. 12. Hypertension. 13. Secondary hyperparathyroidism. 14. Dyslipidemia. 1. Left arteriovenous fistula site bleeding, probably secondary to heparin anticoagulation. 2. Multiple acute cerebral infarct. 3. Multiple acute embolic cerebral infarct with symptoms of dizziness, weakness and gait dysfunction. 4. End-stage renal disease, hemodialysis dependent. 5. Lymphedema of the lower extremity. 6. Normocytic anemia. 7. Insulin-requiring diabetes mellitus with hyperglycemia and hemoglobin A1c of 7.8. 8. Hyperphosphatemia. 9. Hypovitaminosis D. 10. Hypertriglyceridemia. 11. Hypercholesterolemia. 12. Elevated LDL. 13. Diffuse bilateral slowing with abnormal EEG consistent with bilateral cerebral dysfunction. 14. Gait dysfunction. 15. Left upper extremity arteriovenous fistula site bleeding secondary to heparin anticoagulation. 1. Acute cerebral infarct symptomatic with symptoms of dizziness and gait dysfunction. 2. Acute embolic multiple cerebral infarct. 3. End-stage renal disease, hemodialysis dependent three times a week via left upper extremity AV fistula. 4. Embolic acute cerebrovascular accident. 5. Severe to critical aortic stenosis. 6. Abnormal EEG with presence of diffuse slowing consistent with mild bilateral cerebral dysfunction. 7. Hypertension. 8. Transient hypoxemia. 9. Normocytic anemia. 10. Insulin-requiring diabetes mellitus, uncontrolled with hemoglobin A1c of 7.8. 11. Hypovitaminosis D. 12. Hypertriglyceridemia, hypercholesteremia with elevated LDL and decreased HDL. 13. Gait dysfunction. 14. Deconditioning. 15. Bilateral lower extremity lymphedema. 16. Dyslipidemia. 17. Secondary hyperparathyroidism. 1. Multiple acute infarcts, dominant 3-mm infarct in the right parietal lobe with multiple acute smaller infarcts in the right parietal, right frontal, and left temporal lobes. 2. Gait dysfunction. 3. Dizziness. 4. Right parietal lobe 3.5-cm acute infarct. 5. Multiple acute smaller infarcts involving the right parietal lobe, right frontal lobe, left temporal lobe with punctate appearance. 6. Bilateral basal ganglia right centrum semiovale and left pontine multiple old chronic lacunar infarcts. 7. Chronic small vessel ischemic disease of the brain. 8. Left mastoid air cell fluid, questionable mastoiditis. 9. Left ventricular ejection fraction of 60%. 10. Severe valvular aortic stenosis. 11. Pulmonary arterial hypertension with right ventricular systolic pressure of 46 mmHg. 12. Concentric left ventricular atrophy. 13. Moderately dilated left atrium. 14. Calcified aortic valve with decreased opening. 15. Mild aortic regurgitation. 16. Severe valvular aortic stenosis. 17. Trace mitral regurgitation. 18. Moderate mitral stenosis. 19. Deconditioning. 20. Gait dysfunction. 21. Lymphedema of the lower extremity. 22. End-stage renal disease, hemodialysis dependent three times a week via the left upper extremity arteriovenous fistula. 23. Diffuse slowing on the consistent with bilateral cerebral dysfunction. 24. Insulin-requiring diabetes mellitus with hyperglycemia and hemoglobin A1c of 7.8. 25. History of hypertension. 26. Normocytic anemia. 27. Secondary hyperparathyroidism. 28. Uncontrolled insulin-requiring diabetes mellitus with hemoglobin A1c of 7.8. 29. Hypercholesteremia, hypertriglyceridemia with elevated high density lipoprotein and decreased low density lipoprotein. 30. Hypovitaminosis D. 1. Multiple acute brain infarct, probably embolic with right parietal lobe 3-cm dominant infarct and multiple acute infarct in the right parietal, right frontal and left temporal lobes. 2. Left internal carotid artery cavernous and supraclinoid segment stenosis. 3. Renal osteodystrophy. 4. Bilateral cerebral dysfunction. 5. Headache, dizziness, weakness and possible gait dysfunction. 6. Morbid obesity with elevated body mass index of 60. 7. Bilateral lower extremity lymphedema. 8. Chronic venous stasis of the lower extremity. 9. Normocytic anemia. 10. Insulin-requiring diabetes mellitus with hyperglycemia and hemoglobin A1c of 7.8. 11. Hyperglycemia. 12. Hypovitaminosis D. 13. Hypertriglyceridemia, hypercholesteremia with decreased HDL. 14. History of poor compliance. 15. Left ventricular ejection fraction of 60%. 16. Pulmonary arterial hypertension with right ventricular systolic pressure of 46 mmHg 17. Moderate concentric left ventricular hypertrophy. 18. Moderately dilated left atrium. 19. Calcified aortic valve with decreased opening and mild aortic regurgitation. 20. Severe valvular aortic stenosis. 21. Trace mitral regurgitation. 22. Moderate mitral stenosis. 23. Tricuspid regurgitation with right ventricular systolic pressure of 46 mmHg and pulmonary arterial hypertension. 24. Left internal carotid artery narrowing and irregularities of the cavernous and supraclinoid segment compatible with stenosis. 25. Calcified plaque of the left internal carotid artery cavernous and supraclinoid segment. 26. Nonvisualized left anterior cerebral artery. 27. Left lower lobe lingular atelectasis and scarring. 28. Right lung noncalcified 3-mm pulmonary nodule. 29. Cardiomegaly. 30. Bilateral gynecomastia. 31. Left subclavian vein stenting. 32. Possible chronic occlusion of the right brachiocephalic vein. 33. Pulmonary hypertension. 34. Mediastinal lymphadenopathy. 35. Cholelithiasis. 36. Renal osteodystrophy with diffusely dense appearance of the bones and multiple vertebral endplate lucencies and degenerative Schmorl node. 37. Pulmonary nodule. 38. Bilateral 20% to 39% proximal internal carotid artery stenosis. 39. Multiple acute infarct involving the cortex and subcortical white matter and a dominant acute infarct in the right parietal lobe, 3.5 cm, with multiple smaller acute infarct of the right parietal lobe, right frontal lobe and left temporal lobe with punctate appearance. 40. Bilateral basal ganglia, multiple small old chronic lacunar infarct of the bilateral basal ganglia, right centrum semiovale and left neelima area. 41. Chronic microvascular ischemic disease of the brain throughout the brain white matter bilaterally. 42. Left mastoid air cell fluid. 43. Left lower lobe airspace disease, questionable atelectasis or pneumonia. 44. Chronic microangiopathic changes of the brain. 45. Unchanged mid occipital soft tissue swelling. 46. End-stage renal disease, hemodialysis dependent three times a week with left upper extremity arteriovenous fistula. Plan at this time, patient is scheduled for angiogram in the morning. Repeat labs ordered. CONSULTATION: Interventional Radiology, Nephrology, Podiatry, Infectious Disease, Cardiology. CURRENT MEDICATIONS: Patient receives Aranesp 25 mcg x1 dose today, Colace 100 mg three times a day, Cozaar 100 mg daily, Cymbalta 60 mg daily, Drisdol 50,000 weekly, Ecotrin 81 mg daily, Flagyl 500 IV q. 8, folic acid 5 mg daily. Patient is to be started on heparin drip from tomorrow. Humalog medium dose sliding scale coverage, Lipitor 80 mg daily, morphine 2 mg IV q. 6 p.r.n., PhosLo 1334 mg three times a day, Protonix 40 mg daily, Senokot 17.2 mg at bedtime, Sensipar 30 mg daily, Teflaro 200 mg IV q. 12, Tylenol 650 q. 6 p.r.n. Patient is on renal diet. At present, patient's further management will be dependent upon the patient's clinical condition, hemodynamic status and as per the patient response to therapeutic intervention, as per the patient's diagnostic test results and recommendation by all the physicians involved in the care of the patient. Dictated and electronically signed, not read. Steve Rincon MD MTDD
[2017-08-27] MEDS: metroNIDAZOLE IV 500 mg/100 ml 500 MG/100 ML BAG IVPB SCH ×3 (05:51→23:47)
[2017-08-27] MEDS ORDERED: Lidocaine 2% Inj (20ml) ONE (06:43)
[2017-08-27] MEDS ORDERED: Midazolam 2 MG/2 ML VIAL ONE ×3 (06:44→08:44)
[2017-08-27] MEDS ORDERED: Nitroglycerin 50mg in D5W 50 MG/250 ML BOTTLE IV ONE (06:45)
[2017-08-27] MEDS ORDERED: Iodixanol 320 MG/ML 100 ML BOTTLE IV ONE (06:45)
[2017-08-27] MEDS ORDERED: HEPARIN SODIUM/NS 2,000 ML IV ONE (06:45)
[2017-08-27] MEDS ORDERED: Iodixanol 320 MG/ML 200 ML BOTTLE IV ONE (06:45)
[2017-08-27 06:46] LABS: BASO # 0.01 K/mm3 (0.0-2.0); BASO % 0.1 % (0.0-3.0); EOS # 0.3 (0.0-0.7); EOS % 3.4 % (1.5-5.0); GRAN # 6.9 (1.4-6.5); GRAN % 72.6 % (50.0-68.0); LYMPH # 1.4 (1.2-3.4); MEAN CELL VOLUME 90.8 fl (80.0-105.0); MEAN CORPUSCULAR HEMOGLOBIN 28.7 pg (25.0-35.0); MEAN CORPUSCULAR HGB CONC 31.5 g/dl (31.0-37.0); MEAN PLATELET VOLUME 9.8 fl (7.0-11.0); MONO # 0.9 (0.1-0.6); MONO % 8.9 % (1.0-6.0); RBC 3.49 10^6/uL (3.5-6.1); RED CELL DISTRIBUTION WIDTH 15.1 % (11.5-14.5); WHITE BLOOD COUNT 9.5 10^3/ul (4.5-11.0)
[2017-08-27 07:01] LABS: INR 1.53 (0.93-1.08); PROTHROMBIN TIME 17.8 SECONDS (9.4-12.5)
[2017-08-27 07:15] LABS: ALBUMIN 3.6 g/dL (3.0-4.8); BILIRUBIN,DIRECT 0.7 mg/dL (0.0-0.4); CALCIUM 9.3 mg/dL (8.4-10.5); MAGNESIUM 2.1 mg/dL (1.7-2.2)
[2017-08-27] MEDS ORDERED: Heparin25000 units/250ml 1/2NS 25,000 UNITS/250 ML BAG IV PRN ×2 (07:19→18:00)
[2017-08-27] MEDS: Insulin Lispro (humaLOG) MEDIUM Coverage SC SCH ×3 (12:01→16:30)
[2017-08-27] MEDS: Pantoprazole 20 mg EC Tab PO SCH ×2 (12:01→16:30)
--- NOTE | 2017-08-27 12:11 | PN ---
DATE: 08/27/2017 SUBJECTIVE: Initially, the patient was seen in the angiogram suite, then the patient was seen in the recovery room. Overnight nurse's notes were reviewed. The patient is undergoing interventional radiology procedure. PHYSICAL EXAMINATION: VITAL SIGNS: T-max 98; heart rate 64; blood pressure 141/62, 135/63, 135/72, 154/70; respiration 17-20; O2 sat 97%. Intake/output not documented. HEENT: Head examination normocephalic, atraumatic. HEENT examination shows pinkish conjunctivae. Anicteric sclerae. No oropharyngeal lesion. No neck rigidity. Soft carotid bruit. CHEST: Kyphosis. LUNGS: Shows decreased breath sounds at the bases. CARDIOVASCULAR: S1, S2. Regular rhythm. Positive systolic murmur, left sternal border, left second intercostal space, right second intercostal space. ABDOMEN: Soft, obese, protuberant. No hepatosplenomegaly palpated. GENITALIA: Male. RECTAL: Deferred. EXTREMITIES: Lower extremity shows positive lymphedema. Positive left upper extremity AV fistula. Positive thrill. Positive right groin dressing. GENITALIA: Male. MUSCULOSKELETAL: Shows a body mass index of 60. DIAGNOSTICS: On 08/27/2017, WBC 9.5, hemoglobin and hematocrit 10 and 32, platelet 284. Granulocytes 73. PT is down to 17.8, INR 1.3. Sodium 140, potassium 3.8, chloride 98, CO2 of 29, anion gap 18, BUN 25, creatinine 8.2, GFR 7. Glucose 122, 125, 138, 139. Calcium 9.3, magnesium 2.1. LFTs shows alk phos of 155. Wound cultures are gram-negative lars. The patient is undergoing a right lower extremity angiogram, which preliminary report shows popliteal stenosis and some distal tibial stenosis. IMPRESSION AND PLAN: 1. Right foot fifth toe gram-negative lars diabetic foot ulcer, cellulitis, gangrene versus questionable osteomyelitis. 2. Right lower extremity peripheral vascular disease with popliteal artery stenosis and tibial artery stenosis. 3. Morbid obesity with elevated body mass index of 60. 4. Normocytic anemia. 5. Granulocytosis. 6. Elevated erythrocyte sedimentation rate of 114. 7. History of multiple acute cerebral infarct, Coumadin-dependent. 8. Insulin-requiring diabetes mellitus with hyperglycemia. 9. End-stage renal disease, hemodialysis dependent. 10. Elevated erythrocyte sedimentation rate of greater than 114. 11. Elevated C-reactive protein of greater than 15. 12. Hyperprocalcitoninemia. 13. Gram-negative lars right foot fifth toe questionable osteomyelitis, diabetic foot ulcer and cellulitis. 14. Status post right lower extremity angiogram and angioplasty. 15. Failure fat suppression of the right foot with edema of the plantar subcutaneous fat of the right foot. 16. Right foot questionable plantar fasciitis with borderline plantar fascia thickening. 17. Right foot cellulitis. 18. Calcified peripheral vascular disease of the lower extremity. 19. Left lower extremity noncompressible waveforms consistent with vascular calcification. 20. Moderately blunted right calf peripheral vascular resistant waveform consistent with right superficial femoral artery occlusive disease. 21. Severely blunted right ankle and metatarsal waveform. 1. Right foot right toe skin and skin structure soft tissue infection. 2. Questionable osteomyelitis of the right foot digits including the fifth digit with relative failure suppression of the fat and the fat suppressed of the digit. 3. Cellulitis of the right foot. 4. Bilateral lower extremity lymphedema. 5. Morbid obesity. 6. Insulin-requiring diabetes mellitus. 7. Right foot fifth digit and foot gangrene. 8. Hypertension. 9. Normocytic anemia. 10. Granulocytosis. 11. Elevated erythrocyte sedimentation rate of greater than 114. 12. History of multiple acute cerebrovascular infarct with Coumadin requiring. 13. End-stage renal disease, hemodialysis dependent. 14. Hyperprocalcitoninemia. 15. Elevated C-reactive protein of greater than 15. 16. Hyperglycemia. 17. Gram-negative lars, right foot fifth toe, questionable osteomyelitis, cellulitis and gangrene. 19. History of recent cerebrovascular accident. 20. Constipation. 21. Diabetic neuropathy. 22. Hypovitaminosis D. 23. Dyslipidemia. 24. Secondary hyperparathyroidism. 1. Acute right foot fifth toe gangrene versus possible osteomyelitis. 2. Right lower extremity peripheral vascular disease. 3. Possible right foot fifth toe diabetic foot ulcer versus cellulitis. 4. Hypertension. 5. End-stage renal disease, hemodialysis dependent three times a week via the left upper extremity fistula. 6. Normocytic anemia. 7. Elevated erythrocyte sedimentation rate of 114. 8. Coumadin-dependent cerebral infarct. 9. Insulin-requiring diabetes mellitus with hyperglycemia. 10. Elevated C-reactive protein of greater than 15. 11. Hyperprocalcitoninemia. 12. Hyperglycemia. 13. Right superficial femoral artery occlusive disease. 14. Severely blunted right distal blood vessel waveform. 15. Calcified peripheral vascular disease. 16. Right leg moderately blunted peripheral vascular resistance waveform consistent with right superficial femoral artery occlusive disease. 17. Severely blunted right ankle and metatarsal waveform. 18. Morbid obesity. 1. Right foot fifth toe gangrene versus diabetic foot ulceration versus questionable underlying osteomyelitis. 2. Right foot fifth toe pain secondary to above. 3. Questionable possible severe diabetic neuropathy. 4. Normocytic anemia. 5. Elevated erythrocyte sedimentation rate of 114. 6. Coumadin-requiring atrial fibrillation with severe aortic valvular stenosis and mitral stenosis. 7. End-stage renal disease, hemodialysis dependent via the left upper extremity arteriovenous fistula. 8. Severe bilateral lower extremity lymphedema. 9. Elevated C-reactive protein of greater than 15. 10. Insulin-requiring diabetes mellitus. 11. History of diabetes. 12. History of hypertension. 13. History of dyslipidemia. 14. History of hypovitaminosis D. 15. History of diabetic neuropathy. 16. History of hyperlipidemia. 17. History of gastroesophageal reflux. 18. History of right foot pain. 1. Multiple acute cerebral infarct, probably multiple acute embolic cerebral infarct. 2. Severe aortic stenosis. 3. Left upper extremity arteriovenous fistula bleeding. 4. Multiple acute embolic cerebral infarct symptomatic with symptoms of dizziness, gait dysfunction. 5. End-stage renal disease, hemodialysis dependent via the left upper extremity arteriovenous fistula three times a week. 6. Anemia. 7. Insulin-requiring diabetes mellitus. 8. History of coronary artery disease. 9. Gait dysfunction. 10. Morbid obesity. 11. Bilateral lower extremity lymphedema. 12. Hypertension. 13. Secondary hyperparathyroidism. 14. Dyslipidemia. 1. Left arteriovenous fistula site bleeding, probably secondary to heparin anticoagulation. 2. Multiple acute cerebral infarct. 3. Multiple acute embolic cerebral infarct with symptoms of dizziness, weakness and gait dysfunction. 4. End-stage renal disease, hemodialysis dependent. 5. Lymphedema of the lower extremity. 6. Normocytic anemia. 7. Insulin-requiring diabetes mellitus with hyperglycemia and hemoglobin A1c of 7.8. 8. Hyperphosphatemia. 9. Hypovitaminosis D. 10. Hypertriglyceridemia. 11. Hypercholesterolemia. 12. Elevated LDL. 13. Diffuse bilateral slowing with abnormal EEG consistent with bilateral cerebral dysfunction. 14. Gait dysfunction. 15. Left upper extremity arteriovenous fistula site bleeding secondary to heparin anticoagulation. 1. Acute cerebral infarct symptomatic with symptoms of dizziness and gait dysfunction. 2. Acute embolic multiple cerebral infarct. 3. End-stage renal disease, hemodialysis dependent three times a week via left upper extremity AV fistula. 4. Embolic acute cerebrovascular accident. 5. Severe to critical aortic stenosis. 6. Abnormal EEG with presence of diffuse slowing consistent with mild bilateral cerebral dysfunction. 7. Hypertension. 8. Transient hypoxemia. 9. Normocytic anemia. 10. Insulin-requiring diabetes mellitus, uncontrolled with hemoglobin A1c of 7.8. 11. Hypovitaminosis D. 12. Hypertriglyceridemia, hypercholesteremia with elevated LDL and decreased HDL. 13. Gait dysfunction. 14. Deconditioning. 15. Bilateral lower extremity lymphedema. 16. Dyslipidemia. 17. Secondary hyperparathyroidism. 1. Multiple acute infarcts, dominant 3-mm infarct in the right parietal lobe with multiple acute smaller infarcts in the right parietal, right frontal, and left temporal lobes. 2. Gait dysfunction. 3. Dizziness. 4. Right parietal lobe 3.5-cm acute infarct. 5. Multiple acute smaller infarcts involving the right parietal lobe, right frontal lobe, left temporal lobe with punctate appearance. 6. Bilateral basal ganglia right centrum semiovale and left pontine multiple old chronic lacunar infarcts. 7. Chronic small vessel ischemic disease of the brain. 8. Left mastoid air cell fluid, questionable mastoiditis. 9. Left ventricular ejection fraction of 60%. 10. Severe valvular aortic stenosis. 11. Pulmonary arterial hypertension with right ventricular systolic pressure of 46 mmHg. 12. Concentric left ventricular atrophy. 13. Moderately dilated left atrium. 14. Calcified aortic valve with decreased opening. 15. Mild aortic regurgitation. 16. Severe valvular aortic stenosis. 17. Trace mitral regurgitation. 18. Moderate mitral stenosis. 19. Deconditioning. 20. Gait dysfunction. 21. Lymphedema of the lower extremity. 22. End-stage renal disease, hemodialysis dependent three times a week via the left upper extremity arteriovenous fistula. 23. Diffuse slowing on the consistent with bilateral cerebral dysfunction. 24. Insulin-requiring diabetes mellitus with hyperglycemia and hemoglobin A1c of 7.8. 25. History of hypertension. 26. Normocytic anemia. 27. Secondary hyperparathyroidism. 28. Uncontrolled insulin-requiring diabetes mellitus with hemoglobin A1c of 7.8. 29. Hypercholesteremia, hypertriglyceridemia with elevated high density lipoprotein and decreased low density lipoprotein. 30. Hypovitaminosis D. 1. Multiple acute brain infarct, probably embolic with right parietal lobe 3-cm dominant infarct and multiple acute infarct in the right parietal, right frontal and left temporal lobes. 2. Left internal carotid artery cavernous and supraclinoid segment stenosis. 3. Renal osteodystrophy. 4. Bilateral cerebral dysfunction. 5. Headache, dizziness, weakness and possible gait dysfunction. 6. Morbid obesity with elevated body mass index of 60. 7. Bilateral lower extremity lymphedema. 8. Chronic venous stasis of the lower extremity. 9. Normocytic anemia. 10. Insulin-requiring diabetes mellitus with hyperglycemia and hemoglobin A1c of 7.8. 11. Hyperglycemia. 12. Hypovitaminosis D. 13. Hypertriglyceridemia, hypercholesteremia with decreased HDL. 14. History of poor compliance. 15. Left ventricular ejection fraction of 60%. 16. Pulmonary arterial hypertension with right ventricular systolic pressure of 46 mmHg 17. Moderate concentric left ventricular hypertrophy. 18. Moderately dilated left atrium. 19. Calcified aortic valve with decreased opening and mild aortic regurgitation. 20. Severe valvular aortic stenosis. 21. Trace mitral regurgitation. 22. Moderate mitral stenosis. 23. Tricuspid regurgitation with right ventricular systolic pressure of 46 mmHg and pulmonary arterial hypertension. 24. Left internal carotid artery narrowing and irregularities of the cavernous and supraclinoid segment compatible with stenosis. 25. Calcified plaque of the left internal carotid artery cavernous and supraclinoid segment. 26. Nonvisualized left anterior cerebral artery. 27. Left lower lobe lingular atelectasis and scarring. 28. Right lung noncalcified 3-mm pulmonary nodule. 29. Cardiomegaly. 30. Bilateral gynecomastia. 31. Left subclavian vein stenting. 32. Possible chronic occlusion of the right brachiocephalic vein. 33. Pulmonary hypertension. 34. Mediastinal lymphadenopathy. 35. Cholelithiasis. 36. Renal osteodystrophy with diffusely dense appearance of the bones and multiple vertebral endplate lucencies and degenerative Schmorl node. 37. Pulmonary nodule. 38. Bilateral 20% to 39% proximal internal carotid artery stenosis. 39. Multiple acute infarct involving the cortex and subcortical white matter and a dominant acute infarct in the right parietal lobe, 3.5 cm, with multiple smaller acute infarct of the right parietal lobe, right frontal lobe and left temporal lobe with punctate appearance. 40. Bilateral basal ganglia, multiple small old chronic lacunar infarct of the bilateral basal ganglia, right centrum semiovale and left neelima area. 41. Chronic microvascular ischemic disease of the brain throughout the brain white matter bilaterally. 42. Left mastoid air cell fluid. 43. Left lower lobe airspace disease, questionable atelectasis or pneumonia. 44. Chronic microangiopathic changes of the brain. 45. Unchanged mid occipital soft tissue swelling. 46. End-stage renal disease, hemodialysis dependent three times a week with left upper extremity arteriovenous fistula. Plan at this time, the patient has been ordered repeat labs. The patient's case was discussed with Dr. Mayito Valdes. The patient can be resumed on heparin with Coumadin bridging later on today. The patient will be started on heparin drip without bolus as per the protocol. The patient has been ordered serial labs. The patient is on Colace 100 mg three times a day, Cozaar 100 mg daily, Cymbalta 60 mg daily, Drisdol 50,000 weekly, Ecotrin 81 mg daily, Flagyl 500 p.o. q. 8 hours, folic acid 5 mg daily, heparin drip ordered as per protocol starting today at 06:00 p.m., Humalog medium-dose sliding scale coverage, Lipitor 80 mg daily, morphine 2 mg IV q. 6 p.r.n. PhosLo 1334 mg p.o. three times a day, Protonix 20 mg twice a day, Senokot 17.2 mg at bedtime, Sensipar 30 mg daily, Teflaro 200 mg IV q. 12, Tylenol 650 q. 6 p.r.n. The patient is on liquid to renal diet. The patient has been ordered hemodialysis today after the angiogram. The patient has been ordered physical therapy, occupational therapy. The patient's case is referred to TCU. At present, the patient's case was discussed with Dr. Mayito Valdes. He would discuss the case regarding the management of the right foot fifth toe with Dr. Schneider. According to the Vascular recommendation, the patient can proceed with the amputation of the right fifth toe on Wednesday after Dr. Schneider's evaluation. Dictated and electronically signed, not read. Steve Rincon MD [facility]
--- NOTE | 2017-08-27 12:49 | CP.PCM.PN ---
Subjective - Date & Time of Evaluation Date of Evaluation: 08/27/17 Time of Evaluation: 12:37 - Subjective Subjective: Podiatry Progress Note - Dr. Schneider 66 year old male patient PMHx IDDM, HTN, ESRD on HD (MWF), CVA, cataracts, seen and evaluated at bedside for right 5th digit gangrene. Patient s/p vascular intervention, NAD. No acute events overnight. Patient reports 6/10 pain to 5th toe, admits pain has decreased since admission. Offers no other pedal complaints. Denies N/V/F/D/C/SOB/calf pain. Objective - Vital Signs/Intake and Output Vital Signs (last 24 hours): Temp Pulse Resp BP Pulse Ox 97.9 F 68 20 146/74 97 08/27/17 12:00 08/27/17 12:00 08/27/17 12:00 08/27/17 12:00 08/27/17 07:30 Intake and Output: 08/27/17 08/27/17 06:59 18:59 Intake Total 470 Balance 470 - Medications Medications: Current Medications Acetaminophen (Tylenol 325mg Tab) 650 mg PO Q6H PRN PRN Reason: TEMP>=99.5F Last Admin: 08/25/17 11:25 Dose: 650 mg Acetaminophen (Tylenol 325mg Tab) 650 mg PO Q4H PRN PRN Reason: Pain, moderate (4-7) Last Admin: 08/27/17 12:22 Dose: 650 mg Aspirin (Ecotrin) 81 mg PO DAILY [facility] Last Admin: 08/27/17 12:01 Dose: Not Given Atorvastatin Calcium (Lipitor) 80 mg PO DIN [facility] Last Admin: 08/26/17 19:14 Dose: 80 mg Calcium Acetate (Phoslo) 1,334 mg PO TID [facility] Last Admin: 08/27/17 12:01 Dose: Not Given Cinacalcet (Sensipar) 30 mg PO DAILY [facility] Last Admin: 08/27/17 12:01 Dose: Not Given Docusate Sodium (Colace) 100 mg PO TID [facility] Last Admin: 08/27/17 12:00 Dose: Not Given Duloxetine HCl (Cymbalta) 60 mg PO DAILY [facility] Last Admin: 08/27/17 12:00 Dose: Not Given Ergocalciferol (Drisdol 50,000 Intl Units Cap) 1 cap PO Q7D [facility] Last Admin: 08/24/17 21:15 Dose: Not Given Folic Acid (Folic Acid) 5 mg PO DAILY [facility] Last Admin: 08/27/17 12:01 Dose: Not Given Ceftaroline Fosamil 200 mg/ (Sodium Chloride) 100 mls @ 100 mls/hr IVPB Q12 [facility] PRN Reason: Protocol Stop: 09/02/17 10:01 Last Admin: 08/27/17 12:01 Dose: Not Given Metronidazole (Flagyl) 500 mg in 100 mls @ 100 mls/hr IVPB Q8 [facility] PRN Reason: Protocol Last Admin: 08/27/17 05:51 Dose: 100 mls/hr Heparin Sodium/Sodium Chloride (Heparin 92904 Units/250ml 1/2 Normal Saline) 25 ,000 units in 250 mls @ 20.139 mls/hr IV .[id number] PRN; Protocol; 12 UNITS/KG/HR PRN Reason: ADJUST RATE PER PROTOCOL Insulin Human Lispro (Humalog Med) 0 units SC AC [facility] PRN Reason: Protocol Last Admin: 08/27/17 12:22 Dose: Not Given Losartan Potassium (Cozaar) 100 mg PO DAILY [facility] Last Admin: 08/27/17 12:00 Dose: Not Given Morphine Sulfate (Morphine) 2 mg IVP Q6H PRN PRN Reason: Pain, moderate (4-7) Last Admin: 08/26/17 11:46 Dose: 2 mg Pantoprazole Sodium (Protonix Ec Tab) 20 mg PO 0600,1600 [facility] Last Admin: 08/27/17 12:01 Dose: Not Given Sennosides (Senokot Tab) 17.2 mg PO HS [facility] Last Admin: 08/26/17 21:39 Dose: 17.2 mg - Labs Labs: 08/27/17 06:20 08/27/17 06:20 PT 17.8 SECONDS (9.4-12.5) H 08/27/17 06:20 INR 1.53 (0.93-1.08) H 08/27/17 06:20 APTT 33.0 Seconds (25.1-36.5) 08/27/17 06:20 - Constitutional Appears: Well, Non-toxic, No Acute Distress - Extremities Exam Additional comments: Dressing to right foot not present VASC: DP pulses palpable 2/4 b/l. PT pulses weakly palpable 1/4 b/l. CFT <3 seconds to left digits 1-5 and right digits 1-4, unable to be assessed right 5th digit. Temperature gradient warm to warm b/l. +1 pitting edema noted to bilateral LE. NEURO: Gross sensation diminished. DERM: Right 5th digit appears necrotic and well-demarcated at base, missing nail 5, malodor present; no drainage, no purulence, no fluctuance. Right 4th interspace is moderately macerated. No open wounds noted. Diffuse xerosis bilateral LE. ORTHO: Pain on palpation right 5th digit. Muscle strength 5/5 for all dorsiflexors, plantarflexors, inverters, and everters b/l. Digital ROM 1-5 b/l. - Neurological Exam Neurological Exam: Alert, Awake, Oriented x3 - Psychiatric Exam Psychiatric exam: Normal Affect, Normal Mood Assessment and Plan - Assessment and Plan (Free Text) Assessment: 66 year old male with right 5th digit gangrene r/o osteomyelitis Plan: Patient seen and evaluated Discussed with attending, Dr. Schneider Afebrile, WBC 9.5, ESR 114, procalcitonin 1.46 R foot XR reviewed: Negative Arterial duplex report: Limited study due to calcified vessels; right SFA occlusive disease; right distal waveforms are severely blunted Venous duplex report: Negative for DVT S/p vascular intervention. Per vascular, may proceed with amputation on Wednesday Recommending right 5th digit amputation - discussed with patient risks, benefits , alternatives, and complications to surgical intervention and he wishes to proceed. Consent form signed and in chart -To OR Wednesday/Wednesday next week pending medical and cardiac clearance R 5th digit WCx reveals growth of stenotrophomonas maltophilia BCx prelim no growth Right foot MRI - limited interpretation Betadine applied to right 5th digit and dressed with DSD Patient to be WBAT in surgical shoe Continue abx per ID - Ceftaroline; f/u recs Pain mgmt per medicine - Morphine, Tylenol Podiatry will continue to follow patient while in house
--- NOTE | 2017-08-27 13:36 | VASCULAR ---
PROCEDURE: 1. Abdominal aortogram and bilateral lower extremity runoff with right selective views. 2. Focal right popliteal artery silver Hawk atherectomy and drug-eluting balloon angioplasty 3. Right anterior tibial artery angioplasty 4. Right posterior tibial artery angioplasty HISTORY: End-stage renal disease. Diabetes. Severe peripheral vascular disease with gangrene right 5th toe. PHYSICIAN(S): Mayito Valdes M.D. TECHNIQUE: The relative risks and indications of the procedure were explained to the patient and his family and consent obtained. The patient was placed supine on the arteriogram table and the left groin prepped and draped in the usual sterile fashion. Conscious sedation and monitoring were provided throughout the procedure by a nurse. Via a left common femoral artery approach, a 5 Algerian sheath was placed in the left groin. Through the sheath and over a guidewire, a 5 Algerian flush catheter was placed in the abdominal aorta at the level of the renal arteries and a PA DSA abdominal aortogram performed. The catheter was pulled down to the aortic bifurcation and bilateral oblique DSA pelvic arteriograms performed. Overlapping bilateral lower extremity DSA arteriograms were obtained from the inguinal ligaments to the ankles. A 0.035 angled Glidewire was advanced over the bifurcation and placed in the proximal left SFA. A 7 Algerian 65 cm destination sheath was placed in the mid right SFA. Heparin 5000 units IV and nitroglycerin in 250 mcg aliquots were given. The right popliteal artery stenosis and mid right anterior tibial stenosis were crossed with a 5 Algerian catheter and a 0.035 glidewire.. Exchange was made for a 0.014 support guidewire. The mid right anterior tibial artery was dilated with a 3.5 x 120 balloon. A good angiographic result was obtained. Brisk antegrade flow was seen. No stent was placed. The guidewire was redirected across the left posterior tibial artery stenoses. The mid right posterior tibial artery was dilated with a 3.0 x 80 angioplasty balloon. The proximal right posterior tibial artery was dilated with a 3.5 x 20 angioplasty balloon. An excellent angiographic result was obtained. No stent was required. [place] atherectomy of the focal right popliteal artery stenosis at the patella was performed with an LS-M catheter approximately 6 passes were performed. The right popliteal artery above the knee was then dilated with a 6 mm x 6 cm drug-eluting balloon. Completion angiograms were obtained. The sheath was removed hemostasis obtained with a Perclose device. The patient tolerated the procedure well. FINDINGS: There are multiple renal arteries which are atretic, consistent with the patient's history for dialysis. The infrarenal abdominal aorta is smoothly calcified widely patent. Aortic bifurcation is patent. The common and external iliac arteries are patent on two views. The internal iliac arteries are patent bilaterally. Right lower extremity: The right common femoral artery is patent. The right profunda femoral artery is patent. The right superficial femoral artery is patent and continuous without a radiographically significant stenosis. There is a critical focal stenosis of the right popliteal artery above the knee. The remainder of the right popliteal artery is patent. The right trifurcation is intact. Critical stenoses in the mid right anterior tibial artery seen. There is severe stenoses in the proximal right posterior tibial and mid right posterior tibial arteries. The right dorsalis pedis artery is patent. There is moderate pedal occlusive disease. Left lower extremity: Left common femoral artery is patent. The left profunda femoral artery is patent. The left superficial femoral artery is patent and continuous without a radiographically significant stenosis. The left popliteal artery is calcified and patent. The left trifurcation is intact. The left anterior tibial artery is patent and continuous. Is predominant supply to the foot. The left posterior tibial artery is atretic and diseased. IMPRESSION: 1.Successful focal right popliteal artery atherectomy and drug-eluting balloon angioplasty 2. Successful right anterior tibial artery angioplasty. 3. Successful right posterior tibial artery angioplasty
--- NOTE | 2017-08-27 13:37 | PN ---
DATE: 08/26/2017 SUBJECTIVE: The patient is seen lying in bed. He is awake. He is alert. He complains of pain in his foot. He also complains of some shortness of breath earlier in the day. He denies any chest tightness. PHYSICAL EXAMINATION: GENERAL: Obese elderly male, lying in bed. VITAL SIGNS: Blood pressure 141/62, heart rate 71, respiratory rate 20, temperature 97.9. HEENT: Normocephalic, atraumatic, positive pallor. NECK: Supple, no JVD. LUNGS: Bilateral equal air entry, no rales. CARDIAC: S1 and S2, regular rate and rhythm, no murmur, no rub. ABDOMEN: Obese, distended, soft, nontender, bowel sounds present. EXTREMITIES: Dressing of the right foot. LABORATORY DATA: WBC 8.8, hemoglobin 9.3, hematocrit 20, platelets 256. Sodium 140, potassium 3.8, chloride 98, CO2 of 29, BUN 35, creatinine 8.2, glucose 125, calcium 9.3, magnesium 2.1, albumin 3.6. Wound culture, gram-negative lars. MEDICATIONS: Ceftaroline, Colace, Cozaar 100, Cymbalta, Drisdol, aspirin, Flagyl, folic acid, insulin, Lipitor, morphine, PhosLo, Protonix, Sensipar, Tylenol. ASSESSMENT: 1. Gangrene of toes, right foot. 2. Bug-wqphlms-exashgeun diabetes mellitus. 3. Hypertension. 4. End-stage renal disease. 5. Coronary artery disease. 6. Recent cerebrovascular accident. PLAN: 1. Wound care. 2. Antibiotic as per ID recommendations. 3. Ultrafiltration today to remove 2 kilos. 4. Dialysis tomorrow. 5. The patient is scheduled for wound debridement/amputation tomorrow. Svetlana Hillman MD
--- NOTE | 2017-08-27 15:59 | PN ---
DATE: 08/27/2017 CARDIOLOGY FOLLOWUP SUBJECTIVE: The patient is status post procedure on his peripheral vascular disease. He tolerated well. PHYSICAL EXAMINATION VITAL SIGNS: Blood pressure 146/74, the heart rates in the 60s. GENERAL: The patient is asymptomatic. NECK: Negative JVD. LUNGS: Without rales. HEART: Reveals S1 and S2. EXTREMITIES: Without change from the previous exam. The groin site is being held for hemostasis. LABORATORY DATA: Hemoglobin is 10. Chemistries: BUN and creatinine is 80 and 8.2, potassium is 3.8. IMPRESSION: 1. Peripheral vascular disease. 2. Critical aortic stenosis. 3. Diabetes mellitus. 4. Obesity. 5. End-stage renal disease. PLAN: Given these findings, we will observe the patient on telemetry for hemodynamic stability post procedure given his history of aortic stenosis. We will consider cardiac catheterization to evaluate his aortic valve next week. Mayito Rolle MD
--- NOTE | 2017-08-27 16:15 | PN ---
DATE: 08/27/2017 SUBJECTIVE: The patient is seen en route to the OR. He is going for an angiogram. PHYSICAL EXAMINATION: GENERAL: Obese elderly , male lying in bed. VITAL SIGNS: Blood pressure 135/72, heart rate 64, respiratory rate 20, temperature 98.1. HEENT: Normocephalic, atraumatic, positive pallor. NECK: Supple, no JVD. LUNGS: Bilateral rhonchi, distant breath sounds, equal expansion. CARDIAC: S1 and S2, regular rate and rhythm,no murmur, no rub. ABDOMEN: Obese, distended, soft, nontender, bowel sounds present. EXTREMITIES: Dressing of the toes of the right foot. INTAKE AND OUTPUT: Not charted. LABORATORY DATA: WBC 9.5, hemoglobin 10, hematocrit 32, platelets 284. Sodium 140, potassium 3.8, chloride 98, CO2 of 29, BUN 25, creatinine 8.2, glucose 125, calcium 9.3, phosphorus not checked, magnesium 2.1. CURRENT MEDICATIONS: Ceftaroline, Colace 100 t.i.d., losartan 100, Cymbalta, Drisdol, Ecotrin, Flagyl, folic acid, Lipitor, morphine, PhosLo, Sensipar 30 mg, Tylenol. ASSESSMENT: 1. Right foot diabetic foot ulcer. 2. Peripheral vascular disease. 3. Hja-rtjqafh-jattattwo diabetes mellitus. 4. Hypertension. 5. End-stage renal disease. 6. Anemia of chronic disease. 7. Recent cerebrovascular accident. PLAN: 1. Angiogram today. 2. Continue antibiotics. 3. Monitor fingersticks and maintain euglycemia. 4. Wound care. 5. ESRD, dialysis later today. 6. Anticoagulation? Svetlana Hillman MD
[2017-08-27 20:15] LABS: BASO # 0.01 K/mm3 (0.0-2.0); BASO % 0.1 % (0.0-3.0); EOS # 0.2 (0.0-0.7); EOS % 2.6 % (1.5-5.0); GRAN # 6.97 (1.4-6.5); GRAN % 76.2 % (50.0-68.0); LYMPH # 0.8 (1.2-3.4); LYMPH % 9.2 % (22.0-35.0); MEAN CELL VOLUME 90.2 fl (80.0-105.0); MEAN CORPUSCULAR HEMOGLOBIN 28.1 pg (25.0-35.0); MEAN CORPUSCULAR HGB CONC 31.2 g/dl (31.0-37.0); MEAN PLATELET VOLUME 9.7 fl (7.0-11.0); MONO # 1.1 (0.1-0.6); MONO % 11.9 % (1.0-6.0); RBC 3.56 10^6/uL (3.5-6.1); RED CELL DISTRIBUTION WIDTH 15.1 % (11.5-14.5); WHITE BLOOD COUNT 9.2 10^3/ul (4.5-11.0)
[2017-08-27 20:20] LABS: INR 1.61 (0.93-1.08); PARTIAL THROMBOPLASTIN TIME 34.8 Seconds (25.1-36.5); PROTHROMBIN TIME 18.5 SECONDS (9.4-12.5)
[2017-08-27 20:31] LABS: ALBUMIN 3.6 g/dL (3.0-4.8); BILIRUBIN,DIRECT 0.8 mg/dL (0.0-0.4); CALCIUM 9.3 mg/dL (8.4-10.5)
[2017-08-28] MEDS: metroNIDAZOLE IV 500 mg/100 ml 500 MG/100 ML BAG IVPB SCH (06:34)
[2017-08-28] MEDS: Pantoprazole 20 mg EC Tab PO SCH ×2 (06:34→16:33)
[2017-08-28 06:39] LABS: BASO # 0.01 K/mm3 (0.0-2.0); BASO % 0.1 % (0.0-3.0); EOS # 0.3 (0.0-0.7); EOS % 3.3 % (1.5-5.0); GRAN # 7.17 (1.4-6.5); GRAN % 70.9 % (50.0-68.0); HEMOGLOBIN 9.7 g/dL (14.0-18.0); LYMPH # 1.5 (1.2-3.4); LYMPH % 15.2 % (22.0-35.0); MEAN CELL VOLUME 89.1 fl (80.0-105.0); MEAN CORPUSCULAR HEMOGLOBIN 28.5 pg (25.0-35.0); MEAN PLATELET VOLUME 9.6 fl (7.0-11.0); MONO # 1.1 (0.1-0.6); MONO % 10.5 % (1.0-6.0); RBC 3.4 10^6/uL (3.5-6.1); RED CELL DISTRIBUTION WIDTH 15.1 % (11.5-14.5); WHITE BLOOD COUNT 10.1 10^3/ul (4.5-11.0)
[2017-08-28 06:51] LABS: INR 1.66 (0.93-1.08); PARTIAL THROMBOPLASTIN TIME 35.2 Seconds (25.1-36.5); PROTHROMBIN TIME 19.3 SECONDS (9.4-12.5)
[2017-08-28 06:59] LABS: ALBUMIN 3.6 g/dL (3.0-4.8); BILIRUBIN,DIRECT 0.7 mg/dL (0.0-0.4); MAGNESIUM 2.1 mg/dL (1.7-2.2)
[2017-08-28] MEDS: Insulin Lispro (humaLOG) MEDIUM Coverage SC SCH ×3 (07:38→16:33)
[2017-08-28] MEDS ORDERED: Darbepoetin Alfa 25 mcg/ml Inj IVP ONE (07:59)
--- NOTE | 2017-08-28 10:00 | CP.PCM.PN ---
Subjective - Date & Time of Evaluation Date of Evaluation: 08/28/17 Time of Evaluation: 09:00 - Subjective Subjective: Progress note - Dr. Schneider 66 year old male patient PMHx IDDM, HTN, ESRD on HD (MWF), CVA, cataracts, admitted for right 5th digit gangrene. Patient was in dialysis at the time of the visit. Nurse was made aware to change the patient's dressing. Nurse was also told patient will be going to the OR Wednesday morning. Will evaluate the patient tomorrow. Objective - Vital Signs/Intake and Output Vital Signs (last 24 hours): Temp Pulse Resp BP Pulse Ox 98 F 71 19 153/59 H 97 08/28/17 08:38 08/28/17 02:00 08/27/17 17:42 08/27/17 17:42 08/27/17 07:30 Intake and Output: 08/28/17 08/28/17 06:59 18:59 Intake Total 120 Output Total 0 Balance 120 - Medications Medications: Current Medications Acetaminophen (Tylenol 325mg Tab) 650 mg PO Q6H PRN PRN Reason: TEMP>=99.5F Last Admin: 08/28/17 08:38 Dose: 650 mg Acetaminophen (Tylenol 325mg Tab) 650 mg PO Q4H PRN PRN Reason: Pain, moderate (4-7) Last Admin: 08/27/17 18:40 Dose: 650 mg Aspirin (Ecotrin) 81 mg PO DAILY ON LICENSE OF [facility] Last Admin: 08/27/17 12:01 Dose: Not Given Atorvastatin Calcium (Lipitor) 80 mg PO DIN ON LICENSE OF [facility] Last Admin: 08/27/17 17:08 Dose: 80 mg Calcium Acetate (Phoslo) 1,334 mg PO TID ON LICENSE OF [facility] Last Admin: 08/27/17 18:43 Dose: Not Given Cinacalcet (Sensipar) 30 mg PO DAILY ON LICENSE OF [facility] Last Admin: 08/27/17 12:01 Dose: Not Given Docusate Sodium (Colace) 100 mg PO TID ON LICENSE OF [facility] Last Admin: 08/27/17 17:08 Dose: 100 mg Duloxetine HCl (Cymbalta) 60 mg PO DAILY ON [facility] OF [facility] Last Admin: 08/27/17 12:00 Dose: Not Given Ergocalciferol (Drisdol 50,000 Intl Units Cap) 1 cap PO Q7D ON LICENSE OF [facility] Last Admin: 08/24/17 21:15 Dose: Not Given Folic Acid (Folic Acid) 5 mg PO DAILY ON LICENSE OF [facility] Last Admin: 08/27/17 12:01 Dose: Not Given Ceftaroline Fosamil 200 mg/ (Sodium Chloride) 100 mls @ 100 mls/hr IVPB Q12 [facility] PRN Reason: Protocol Stop: 09/02/17 10:01 Last Admin: 08/27/17 22:04 Dose: 100 mls/hr Metronidazole (Flagyl) 500 mg in 100 mls @ 100 mls/hr IVPB Q8 [facility] PRN Reason: Protocol Last Admin: 08/28/17 06:34 Dose: Not Given Insulin Human Lispro (Humalog Med) 0 units SC AC [facility] PRN Reason: Protocol Last Admin: 08/28/17 07:38 Dose: Not Given Losartan Potassium (Cozaar) 100 mg PO DAILY ON [facility] OF [facility] Last Admin: 08/27/17 12:00 Dose: Not Given Morphine Sulfate (Morphine) 2 mg IVP Q6H PRN PRN Reason: Pain, moderate (4-7) Last Admin: 08/26/17 11:46 Dose: 2 mg Pantoprazole Sodium (Protonix Ec Tab) 20 mg PO 0600,1600 ON LICENSE OF [facility] Last Admin: 08/28/17 06:34 Dose: Not Given Sennosides (Senokot Tab) 17.2 mg PO HS ON LICENSE OF [facility] Last Admin: 08/27/17 22:03 Dose: 17.2 mg - Labs Labs: 08/28/17 06:00 08/28/17 06:00 PT 19.3 SECONDS (9.4-12.5) H 08/28/17 06:00 INR 1.66 (0.93-1.08) H 08/28/17 06:00 APTT 35.2 Seconds (25.1-36.5) 08/28/17 06:00 Assessment and Plan - Assessment and Plan (Free Text) Assessment: 66 year old male with right 5th digit gangrene r/o osteomyelitis Plan: Patient will be evaluated tomorrow; unable to evaluate today due to patient being in dialysis Discussed with attending, Dr. Schneider Afebrile, WBC 10.1, ESR 114, procalcitonin 1.46 R foot XR reviewed: Negative Arterial duplex report: Limited study due to calcified vessels; right SFA occlusive disease; right distal waveforms are severely blunted Venous duplex report: Negative for DVT S/p vascular intervention. Per vascular, may proceed with amputation on Wednesday Recommending right 5th digit amputation - discussed with patient risks, benefits , alternatives, and complications to surgical intervention and he wishes to proceed. Consent form signed and in chart -To OR Wednesday at 7:30 AM - pending medical and cardiac clearance R 5th digit WCx reveals growth of stenotrophomonas maltophilia BCx prelim no growth Right foot MRI - limited interpretation Patient to be WBAT in surgical shoe Continue abx per ID - Ceftaroline; f/u recs Pain mgmt per medicine - Morphine, Tylenol Podiatry will continue to follow patient while in house
[2017-08-28] MEDS ORDERED: Meropenem 500 MG in Sodium Chloride 0.9% 50 ML IVPB SCH (10:30)
--- NOTE | 2017-08-28 10:34 | PN ---
DATE: 08/28/2017 CARDIOLOGY FOLLOWUP SUBJECTIVE: The patient is in dialysis. His left groin procedure site has stopped bleeding since last night. PHYSICAL EXAMINATION VITAL SIGNS: Blood pressure is 153/60, the heart rates in the 70s. NECK: Negative JVD. LUNGS: Decreased breath sounds. HEART: Reveals II/ systolic ejection murmur. EXTREMITIES: Bandage noted. LABORATORY DATA: Hemoglobin is 9.7. Chemistries: Potassium is 3.9. IMPRESSION: 1. Peripheral vascular disease. 2. Status post peripheral vascular intervention. 3. Diabetes mellitus. 4. Critical aortic stenosis. 5. Obesity. 6. End-stage renal disease. PLAN: Given these findings, once the patient has recovered from his recent angiogram, we will consider cardiac catheterization to evaluate his aortic valve and coronary arteries in route to evaluation for possible TAVR for his aortic stenosis. Mayito Rolle MD
--- NOTE | 2017-08-28 11:07 | PN ---
DATE: 08/28/2017 SUBJECTIVE: Patient was seen in dialysis. Overnight nurse's notes were reviewed. Patient was noted to have some bleeding and oozing from the left groin site. Patient had pressure dressing applied. Patient was monitored by the medical and surgical brace maker overnight.. Patient is seen in dialysis at present. Patient's groin is not oozing or bleeding. PHYSICAL EXAMINATION: VITAL SIGNS: Patient is lying in the recliner in the dialysis with T max is 98.3, pulse 71 to 75, blood pressure 153/59, 130/88, respirations 19, O2 sat is 97% to 98%. HEENT: Head: Normocephalic, atraumatic. HEENT examination shows pinkish pale conjunctivae. Anicteric sclerae. No oropharyngeal lesion. NECK: No neck rigidity. Questionable soft carotid bruit. CHEST: Symmetrical. LUNGS: Shows no rales, crackles or wheezing. Decreased breath sound at the bases. CARDIOVASCULAR: S1, S2. Regular rhythm. Positive systolic murmur, left sternal border, right second intercostal space. ABDOMEN: Soft, protuberant. Positive bowel sounds. GENITALIA: Male. Positive right groin dressing noted. EXTREMITIES: Shows decreasing lymphedema of the lower extremity. Positive right foot dressing. MUSCULOSKELETAL: Shows body mass index of 60. DIAGNOSTICS: On 08/28/2017, WBC 10.1, hemoglobin and hematocrit 9.7 and 30.3, platelet 290. Granulocytes 71. PT 19.3, INR 1.66. Sodium 140, potassium 3.9, chloride 99, CO2 26, anion gap 19, BUN 36, creatinine 9.8, GFR 5, glucose 150, 22, calcium 9.0, phosphorus 3.2, magnesium 2.1, alkaline phosphatase 150. Right foot cultures from the right toe, Stenotrophomonas maltophilia. IMPRESSION: 1. Abdominal aortogram and bilateral lower extremity runoff with right selective view. 2. Focal right popliteal artery [place] atherectomy with drug-eluting balloon angioplasty. 3. Right anterior tibial artery and right posterior tibial artery angioplasty. 4. Successful focal right popliteal artery atherectomy and drug-eluting balloon angioplasty. 5. Successful right anterior and posterior tibial artery angioplasty. 6. Atretic multiple renal artery. 7. Right popliteal artery critical focal stenosis above the knee. 8. Critical stenosis of the mid right anterior tibial artery and severe stenosis of the proximal right posterior tibial artery and mid right posterior tibial artery. 9. Moderate pedal occlusive disease. 10. End-stage renal disease, hemodialysis-dependent. 11. Hypertension. 12. Right foot fifth toe diabetic ulceration secondary to Stenotrophomonas maltophilia ulceration. 13. Post abdominal aortogram and bilateral lower extremity runoff with left groin bleeding. 14. Peripheral vascular disease. 15. Anemia. 16. Elevated erythrocyte sedimentation rate of 114. 17. Coumadin requiring multiple cerebral infarct. 18. Insulin-requiring diabetes mellitus. 19. Bilateral lower extremity lymphedema. 20. Hyperglycemia. 21. Left groin bleeding slow resolving. 22. Morbid obesity. 23. Gait dysfunction. 24. Right foot fifth toe diabetic ulceration and gangrene with neuropathic pain. 25. Diabetic neuropathy. 26. Hypovitaminosis D. 27. Dyslipidemia. 28. Secondary hyperparathyroidism. PLAN AT THIS TIME: Patient has been ordered repeat CMP, LFT, magnesium. Repeat CBC, PT/PTT. 1. Patient received a dose of Aranesp 25 mcg x1. 2. Colace 100 mg three times a day. 3. Cozaar 100 mg daily. 4. Cymbalta 60 mg daily. 5. Drisdol 50,000 units weekly. 6. Aspirin 81 mg daily. 7. Patient is on insulin sliding scale. 8. Flagyl 500 IV q.8 hours. 9. Folic acid 5 mg daily. 10. Humalog medium dose sliding scale coverage. 11. Lipitor 80 mg daily. 12. Patient is on PhosLo 1334 mg three times a day. 13. Protonix 40 mg daily. 14. Senokot 17.2 mg at bedtime. 15. Sensipar 30 mg daily. 16. Teflaro 200 mg IV q.12 hours. 17. Tylenol p.r.n. CURRENT CONSULTATION: 1. Mayito Valdes M.D. 2. Nephrology. 3. Podiatry. 4. Infectious Disease. 5. Cardiology. Referral for TCU ordered. Patient is on renal diet. At present, the patient will be followed closely by all physicians involved in the care of the patient. Dictated and electronically signed, not read. Steve Rincon MD [facility] # [id number]
[2017-08-28] MEDS: Meropenem 500 MG in Sodium Chloride 0.9% 100 ML IVPB SCH (11:11)
--- NOTE | 2017-08-28 11:26 | CP.PCM.PN ---
Subjective - Date & Time of Evaluation Date of Evaluation: 08/28/17 Time of Evaluation: 10:10 - Subjective Subjective: Less pain in the right foot, no fevers, not in distress, no diarrhea, no nausea. Objective - Vital Signs/Intake and Output Vital Signs (last 24 hours): Temp Pulse Resp BP Pulse Ox 98 F 71 19 153/59 H 97 08/28/17 08:38 08/28/17 02:00 08/27/17 17:42 08/27/17 17:42 08/27/17 07:30 Intake and Output: 08/28/17 08/28/17 06:59 18:59 Intake Total 120 Output Total 0 Balance 120 - Medications Medications: Current Medications Acetaminophen (Tylenol 325mg Tab) 650 mg PO Q6H PRN PRN Reason: TEMP>=99.5F Last Admin: 08/28/17 08:38 Dose: 650 mg Acetaminophen (Tylenol 325mg Tab) 650 mg PO Q4H PRN PRN Reason: Pain, moderate (4-7) Last Admin: 08/27/17 18:40 Dose: 650 mg Aspirin (Ecotrin) 81 mg PO DAILY [facility] Last Admin: 08/27/17 12:01 Dose: Not Given Atorvastatin Calcium (Lipitor) 80 mg PO DIN [facility] Last Admin: 08/27/17 17:08 Dose: 80 mg Calcium Acetate (Phoslo) 1,334 mg PO TID [facility] Last Admin: 08/27/17 18:43 Dose: Not Given Cinacalcet (Sensipar) 30 mg PO DAILY [facility] Last Admin: 08/27/17 12:01 Dose: Not Given Docusate Sodium (Colace) 100 mg PO TID [facility] Last Admin: 08/27/17 17:08 Dose: 100 mg Duloxetine HCl (Cymbalta) 60 mg PO DAILY [facility] Last Admin: 08/27/17 12:00 Dose: Not Given Ergocalciferol (Drisdol 50,000 Intl Units Cap) 1 cap PO Q7D [facility] Last Admin: 08/24/17 21:15 Dose: Not Given Folic Acid (Folic Acid) 5 mg PO DAILY [facility] Last Admin: 08/27/17 12:01 Dose: Not Given Meropenem 500 mg/ Sodium (Chloride) 50 mls @ 100 mls/hr IVPB Q24H [facility] PRN Reason: Protocol Stop: 09/04/17 10:31 Insulin Human Lispro (Humalog Med) 0 units SC AC [facility] PRN Reason: Protocol Last Admin: 08/28/17 07:38 Dose: Not Given Losartan Potassium (Cozaar) 100 mg PO DAILY [facility] Last Admin: 08/27/17 12:00 Dose: Not Given Morphine Sulfate (Morphine) 2 mg IVP Q6H PRN PRN Reason: Pain, moderate (4-7) Last Admin: 08/26/17 11:46 Dose: 2 mg Pantoprazole Sodium (Protonix Ec Tab) 20 mg PO 0600,1600 [facility] Last Admin: 08/28/17 06:34 Dose: Not Given Sennosides (Senokot Tab) 17.2 mg PO HS [facility] Last Admin: 08/27/17 22:03 Dose: 17.2 mg - Labs Labs: 08/28/17 06:00 08/28/17 06:00 PT 19.3 SECONDS (9.4-12.5) H 08/28/17 06:00 INR 1.66 (0.93-1.08) H 08/28/17 06:00 APTT 35.2 Seconds (25.1-36.5) 08/28/17 06:00 - Constitutional Appears: Chronically Ill - Head Exam Head Exam: NORMAL INSPECTION - ENT Exam ENT Exam: Mucous Membranes Moist - Neck Exam Neck Exam: absent: Meningismus - Respiratory Exam Respiratory Exam: Decreased Breath Sounds - Cardiovascular Exam Cardiovascular Exam: +S1, +S2 - GI/Abdominal Exam GI & Abdominal Exam: Soft. absent: Tenderness - Extremities Exam Additional comments: right foot with dressings in place Assessment and Plan - Assessment and Plan (Free Text) Plan: Assessment Consider right foot skin and skin structure infection, severe, R/O osteomyelitis , growing Stenotrophomonas ESRD on HD history of CVA HTN cataracts DM Plan will change Teflaro and Flagyl to Merrem pending final susceptiblity results for the Stenotrophomonas follow up vascular studies of extremities and MRI of right foot patient scheduled for OR next week will continue to monitor clinically
--- NOTE | 2017-08-28 11:55 | PN ---
DATE: SUBJECTIVE: The patient is currently seen receiving dialysis. He had a successful angioplasty x3 with an atherectomy, right lower extremity. He is being evaluated by Podiatry for possible resection of the right fifth toe because of gangrenous changes. MEDICATIONS: Medication list reviewed. The patient is currently on ceftaroline, Colace, Cozaar, Cymbalta, vitamin D, Ecotrin, Flagyl, folic acid, insulin, Lipitor, p.r.n. morphine, PhosLo, Protonix, Senokot, Tylenol p.r.n. OBJECTIVE INTAKE/OUTPUT: Intake 470, output not charted. VITAL SIGNS: Blood pressure presently is 141/79, on dialysis with a heart rate of 73. Temperature 98.3, respiratory rate is 19. HEENT: Exam shows him to be normocephalic, atraumatic. Conjunctivae are pale. Sclerae nonicteric. NECK: Supple. No neck vein distention. CHEST: Clear to auscultation and percussion. No rales, rhonchi, or wheezing. CARDIOVASCULAR: Shows a regular rate and rhythm without audible murmurs, rubs or gallops. ABDOMEN: Soft. Bowel sounds normal. Mild obesity. No rebound or guarding. EXTREMITIES: Show dressing over the toes of the right foot. Diminished lower extremity pulses. No cyanosis or clubbing. LABORATORY DATA AND IMAGING: The patient is status post angiogram of the lower extremity bilaterally. He had a successful focal right popliteal artery atherectomy and drug-eluting balloon angioplasty, successful right anterior tibial artery angioplasty and successful right posterior tibial artery angioplasty. Labs: CBC: White blood cell count 10.1, hemoglobin 9.7, platelet count is 290,000 from this morning. Chemistry showed normal electrolytes. BUN 36 with a creatinine of 9.8. Glucose is 122. Calcium, phosphorus, magnesium are all normal. Microbiology: Wound culture positive for Stenotrophomonas maltophilia. Blood cultures are negative at three days. ASSESSMENT 1. Gangrenous changes, right fifth toe. 2. Diabetic foot ulcer, the patient will continue on antibiotic therapy. 3. History of peripheral vascular disease, status post successful atherectomy and angioplasty x3 of his right lower extremity. 4. History of end-stage renal disease. The patient will continue routine hemodialysis. He missed yesterday's dialysis; hence, he is receiving dialysis today. 5. History of hypertension. Blood pressure controlled on present medication. 6. History of xnq-sjrwpjc-oxoqogwgy diabetes mellitus. The patient will continue on sliding scale insulin. 7. History of anemia secondary to end-stage renal disease. We will increase his Aranesp, on dialysis. 8. Status post recent cerebrovascular accident, stable. 9. History of secondary hyperparathyroidism. The patient will continue renal diet and binder therapy. PLAN 1. Discussed with the patient. He anticipates further evaluation by Vascular and Interventional Radiology over the next several days post his atherectomy and angioplasty. He will likely see his heat seal operator if not over the weekend early on Wednesday to make a decision about possible surgery to remove his gangrenous toe. 2. Continue present diet therapy and binder therapy. 3. Continue sliding scale insulin. 4. Continue to monitor labs closely. 5. Increase Aranesp to help bring his hemoglobin up to the 10-11 range. Phillip Barth MD MTDD
[2017-08-29] MEDS: Pantoprazole 20 mg EC Tab PO SCH ×2 (05:57→15:29)
[2017-08-29 06:32] LABS: BASO # 0.01 K/mm3 (0.0-2.0); BASO % 0.1 % (0.0-3.0); EOS # 0.4 (0.0-0.7); EOS % 3.7 % (1.5-5.0); GRAN # 7.29 (1.4-6.5); HEMOGLOBIN 9.7 g/dL (14.0-18.0); LYMPH # 1.4 (1.2-3.4); LYMPH % 13.6 % (22.0-35.0); MEAN CELL VOLUME 90.1 fl (80.0-105.0); MEAN CORPUSCULAR HEMOGLOBIN 28.3 pg (25.0-35.0); MEAN CORPUSCULAR HGB CONC 31.4 g/dl (31.0-37.0); MEAN PLATELET VOLUME 9.9 fl (7.0-11.0); MONO # 1.2 (0.1-0.6); MONO % 11.6 % (1.0-6.0); RBC 3.43 10^6/uL (3.5-6.1); RED CELL DISTRIBUTION WIDTH 15.4 % (11.5-14.5); WHITE BLOOD COUNT 10.3 10^3/ul (4.5-11.0)
[2017-08-29 06:33] LABS: ALBUMIN 3.5 g/dL (3.0-4.8); BILIRUBIN,DIRECT 0.6 mg/dL (0.0-0.4); INR 1.56 (0.93-1.08); MAGNESIUM 2.1 mg/dL (1.7-2.2); PARTIAL THROMBOPLASTIN TIME 31.6 Seconds (25.1-36.5); PROTHROMBIN TIME 18.1 SECONDS (9.4-12.5)
[2017-08-29] MEDS: Insulin Lispro (humaLOG) MEDIUM Coverage SC SCH ×3 (07:49→16:49)
[2017-08-29] MEDS: Meropenem 500 MG in Sodium Chloride 0.9% 100 ML IVPB SCH (10:14)
--- NOTE | 2017-08-29 10:23 | CP.PCM.PN ---
Subjective - Date & Time of Evaluation Date of Evaluation: 08/29/17 Time of Evaluation: 10:19 - Subjective Subjective: Podiatry Progress Note - Dr. Schneider 66 year old male patient PMHx IDDM, HTN, ESRD on HD (MWF), CVA, cataracts, seen and evaluated at bedside for right 5th digit gangrene. Patient is AAOx3 and is in NAD. No acute events overnight. Patient reports 6/10 pain to 5th toe, admits pain has decreased since admission. Offers no other pedal complaints. Denies N/V /F/D/C/SOB/calf pain. Objective - Vital Signs/Intake and Output Vital Signs (last 24 hours): Temp Pulse Resp BP Pulse Ox 97.9 F 68 19 136/53 L 99 08/29/17 06:00 08/29/17 06:00 08/29/17 06:00 08/29/17 06:00 08/29/17 06:00 Intake and Output: 08/29/17 08/29/17 06:59 18:59 Intake Total 240 Output Total 0 Balance 240 - Medications Medications: Current Medications Acetaminophen (Tylenol 325mg Tab) 650 mg PO Q6H PRN PRN Reason: TEMP>=99.5F Last Admin: 08/28/17 23:25 Dose: 650 mg Acetaminophen (Tylenol 325mg Tab) 650 mg PO Q4H PRN PRN Reason: Pain, moderate (4-7) Last Admin: 08/29/17 08:07 Dose: 650 mg Aspirin (Ecotrin) 81 mg PO DAILY [facility] Last Admin: 08/28/17 10:58 Dose: 81 mg Atorvastatin Calcium (Lipitor) 80 mg PO DIN [facility] Last Admin: 08/28/17 16:33 Dose: 80 mg Calcium Acetate (Phoslo) 1,334 mg PO TID [facility] Last Admin: 08/28/17 18:03 Dose: 1,334 mg Cinacalcet (Sensipar) 30 mg PO DAILY [facility] Last Admin: 08/28/17 10:58 Dose: 30 mg Docusate Sodium (Colace) 100 mg PO TID [facility] Last Admin: 08/28/17 18:04 Dose: 100 mg Duloxetine HCl (Cymbalta) 60 mg PO DAILY [facility] Last Admin: 08/28/17 10:58 Dose: 60 mg Ergocalciferol (Drisdol 50,000 Intl Units Cap) 1 cap PO Q7D [facility] Last Admin: 08/24/17 21:15 Dose: Not Given Folic Acid (Folic Acid) 5 mg PO DAILY [facility] Last Admin: 08/28/17 10:58 Dose: 5 mg Meropenem 500 mg/ Sodium (Chloride) 100 mls @ 100 mls/hr IVPB Q24H [facility] PRN Reason: Protocol Stop: 09/04/17 10:31 Last Admin: 08/28/17 11:11 Dose: 100 mls/hr Insulin Human Lispro (Humalog Med) 0 units SC AC [facility] PRN Reason: Protocol Last Admin: 08/29/17 07:49 Dose: Not Given Losartan Potassium (Cozaar) 100 mg PO DAILY [facility] Last Admin: 08/28/17 10:58 Dose: 100 mg Oxycodone/Acetaminophen (Percocet 5/325 Mg Tab) 1 tab PO Q4H PRN PRN Reason: Pain, moderate (4-7) Stop: 09/03/17 18:47 Pantoprazole Sodium (Protonix Ec Tab) 20 mg PO 0600,1600 [facility] Last Admin: 08/29/17 05:57 Dose: 20 mg Sennosides (Senokot Tab) 17.2 mg PO HS [facility] Last Admin: 08/28/17 22:05 Dose: Not Given Warfarin Sodium (Coumadin) 2 mg PO 1800 [facility] PRN Reason: Protocol - Labs Labs: 08/29/17 06:00 08/29/17 06:00 PT 18.1 SECONDS (9.4-12.5) H 08/29/17 06:00 INR 1.56 (0.93-1.08) H 08/29/17 06:00 APTT 31.6 Seconds (25.1-36.5) 08/29/17 06:00 - Constitutional Appears: Well, Non-toxic, No Acute Distress - Extremities Exam Additional comments: VASC: DP pulses palpable 2/4 b/l. PT pulses weakly palpable 1/4 b/l. CFT <3 seconds to left digits 1-5 and right digits 1-4, unable to be assessed right 5th digit. Temperature gradient warm to warm b/l. +1 pitting edema noted to bilateral LE. NEURO: Gross sensation diminished. DERM: Right 5th digit appears necrotic and well-demarcated at base, missing nail 5, malodor present; no drainage, no purulence, no fluctuance. Right 4th interspace is moderately macerated. No open wounds noted. Diffuse xerosis bilateral LE. ORTHO: Pain on palpation right 5th digit. Muscle strength 5/5 for all dorsiflexors, plantarflexors, inverters, and everters b/l. Digital ROM 1-5 b/l. - Neurological Exam Neurological Exam: Alert, Awake, Oriented x3 - Psychiatric Exam Psychiatric exam: Normal Affect, Normal Mood Assessment and Plan - Assessment and Plan (Free Text) Assessment: 66 year old male with right 5th digit gangrene r/o osteomyelitis Plan: Patient seen and evaluated Discussed with attending, Dr. Schneider Afebrile, WBC 10.3, ESR 114, procalcitonin 1.46 R foot XR reviewed: Negative Arterial duplex report: Limited study due to calcified vessels; right SFA occlusive disease; right distal waveforms are severely blunted Venous duplex report: Negative for DVT S/p vascular intervention. Per vascular, may proceed with amputation on Wednesday Recommending right 5th digit amputation - discussed with patient risks, benefits , alternatives, and complications to surgical intervention and he wishes to proceed. Consent form signed and in chart Patient to go to OR tomorrow morning at 7:30 AM - NPO starting midnight - Hold anticoagulants for tomorrow R 5th digit WCx reveals growth of stenotrophomonas maltophilia BCx prelim no growth Right foot MRI - limited interpretation Betadine applied to right 5th digit and dressed with DSD Patient to be WBAT in surgical shoe Continue abx per ID - Ceftaroline; f/u recs Pain mgmt per medicine - Morphine, Tylenol Podiatry will continue to follow patient while in house
--- NOTE | 2017-08-29 13:35 | PN ---
DATE: 08/29/2017 CARDIOLOGY FOLLOWUP SUBJECTIVE: The patient is without shortness of breath, without chest pain. OBJECTIVE VITAL SIGNS: Blood pressure is 136/53, the heart rate in the 60s. Neck: Negative JVD. HEART: Positive systolic murmur. EXTREMITIES: Gangrenous distal digits. LABORATORY DATA: Hemoglobin is 9.7. Chemistries: BUN and creatinine are noted. IMPRESSION 1. Gangrenous lower extremities. 2. Critical aortic stenosis. 3. End-stage renal disease. 4. Peripheral vascular disease. Given these findings, the patient is scheduled for amputation tomorrow because of his gangrene. I have discussed with the patient the high risk of this procedure given his aortic stenosis. The patient understands the risks and benefits. Mayito Rolle MD
[2017-08-29] MEDS ORDERED: Heparin25000 units/250ml 1/2NS 25,000 UNITS/250 ML BAG IV PRN (14:38)
--- NOTE | 2017-08-29 14:53 | CP.PCM.PCO ---
Physician Communication Note - Physician Communication Note Physician Communication Note: PATIENT MODERATE RISK FOR SURGICAL INTERVENTION
[2017-08-29] MEDS: Oxycodone/Acetaminophen 5/325 mg Tab PO PRN ×2 (15:53→22:41)
--- NOTE | 2017-08-29 20:14 | PN ---
DATE: 08/29/2017 LOCATION: The patient is seen in room 267, bed 1. SUBJECTIVE: The patient is sitting up in the bed. The patient's son is at the bedside. The patient is alert, awake and oriented x3. The patient does not offer any specific complaint at this time. Overnight nurse's notes were reviewed. The patient had episodes of foot pain. The slept well without any adverse events documented except for one episode of foot pain. The patient was seen by Podiatry resident, scheduled for right foot fifth toe amputation. Intake and output not documented. PHYSICAL EXAMINATION VITAL SIGNS: Telemetry shows sinus rhythm. T-max is 97.9. Pulse 75, 76, 68. Blood pressure 136/53, 137/70, 136/53, 136/57, 136/96. Respirations 18 to 19. O2 sat 99%. HEENT: Head normocephalic, atraumatic. HEENT examination shows pinkish pale conjunctivae. Anicteric sclerae. No oropharyngeal lesion. NECK: No neck rigidity. CHEST: Kyphosis. LUNGS: Shows decreased breath sounds at the bases. CARDIOVASCULAR: S1 and S2. Regular rhythm. Positive systolic murmur, left sternal border, right second intercostal space. ABDOMEN: Obese, positive bowel sounds. No bleeding at the site. GENITALIA: Male. RECTAL: Deferred. EXTREMITIES: Shows decreasing lymphedema, decrease in swelling. Positive right foot toe dressing. MUSCULOSKELETAL: Shows a BMI of 60. NEUROLOGIC: The patient is alert, awake and oriented x3. Cranial nerves II through XII intact. LABORATORY DATA: Diagnostics, on 08/29/2017, WBC 10.3, hemoglobin and hematocrit 9.7 and 30.9, platelets 308, granulocytes 71. PT is 18.1, INR 1.6. Chemistry, sodium 141, potassium 3.8, chloride 96, CO2 of 34, anion gap 15, BUN 20, creatinine GFR 10; glucose 149, 134, 214, 140; calcium 9.0. LFTs shows alkaline phosphatase of 138. Procalcitonin level was 1.46. Stenotrophomonas maltophilia was noted in the wound cultures. The patient is seen by Podiatry. The patient seen by Cardiology. The patient is scheduled for right foot fifth toe amputation in the morning. The patient seen by Infectious Disease yesterday. IMPRESSION: 1. Stenotrophomonas maltophilia right foot fifth toe cellulitis, diabetic ulceration, gangrene versus possible osteomyelitis. 2. Hypertension. 3. Insulin requiring diabetes mellitus with hyperglycemia. 4. Morbid obesity. 5. Normocytic anemia. 6. Elevated erythrocyte sedimentation rate of 114. 7. Coumadin requiring cerebral infarct. 8. End-stage renal disease, hemodialysis dependent. 9. Elevated C-reactive of greater 15. 10. . 11. Critical aortic stenosis. 12. Right lower extremity peripheral vascular disease. 13. Right foot neuropathic pain. 14. History of acute infarct of the right parietal lobe, right frontal lobe and left temporal lobe involving the cortex and subcortical white matter. 15. History of multiple old chronic lacunar infarct of the bilateral basal ganglia, right centrum semiovale and left neelima. 16. History of chronic microvascular ischemic disease of the brain. 17. History of questionable mastoiditis. 18. History of lymphedema of the bilateral lower extremities. 19. Diabetic neuropathy. 20. Constipation. 21. Hypervitaminosis D. 22. Hyperlipidemia. 23. Secondary hyperparathyroidism. PLAN: At this time, the patient has been ordered repeat labs. The patient's Coumadin has been discontinued. The patient is started on heparin drip without bolus which will be discontinued prior to podiatry surgery depending upon their surgical timing and schedule. CURRENT MEDICATIONS: The patient received Aranesp 25 mcg IV yesterday x1. The patient is on Colace 100 mg 3 times day, Cozaar 100 mg daily, Cymbalta 60 mg daily, Drisdol 50,000 units weekly, aspirin 81 mg daily, folic acid 5 mg daily, heparin drip started. Humalog medium dose sliding scale coverage before meals, Lipitor 80 mg daily, meropenem 500 mg IV q. 24, Percocet 5/325 one tab q. 4 p.r.n., PhosLo 1334 mg 3 times a day, Protonix 40 mg daily, Senokot 17.2 mg at bedtime, Sensipar 30 mg daily, Tylenol 650 q. 4 p.r.n. Patient has been ordered elevation of the lower extremities on 2 pillows. SCDs. The patient has been informed that the patient will be at least moderate risk for surgical intervention which the patient acknowledges and understands, and the patient wishes to proceed with the surgery. I am including the amputation of the right foot fifth toe and digit. Dictated and electronically signed, not read. Steve Rincon MD [facility] # [id number]
--- NOTE | 2017-08-29 20:59 | PN ---
DATE: SUBJECTIVE: Patient is currently seen with his son in the room. He is anticipating having a resection of his right fifth toe because of gangrenous changes. This is being scheduled for tomorrow morning. He is status post successful angioplasty x3 with atherectomy, right lower extremity. He did receive his last dialysis yesterday and can be switched to a Wednesday, , Wednesday schedule so that he does not have surgery the same day as his dialysis. MEDICATIONS: Medication list reviewed. Patient is currently on Colace, losartan, Cymbalta, vitamin D, Ecotrin, folic acid, heparin, Humalog, Lipitor, meropenem, Percocet, PhosLo, Protonix, Senokot, Sensipar, and Tylenol p.r.n. OBJECTIVE: INTAKE AND OUTPUT: Intake 240 plus, output not charted plus dialysis. VITAL SIGNS: Blood pressure is 137/60, temperature is 97.1, respiratory rate is 20 with a pulse of 75. HEENT: Normocephalic, atraumatic. Conjunctivae are pale. Sclerae nonicteric. NECK: Supple. No neck vein distention. CHEST: Clear to auscultation and percussion. No rales, no rhonchi, no wheezing. CARDIOVASCULAR: Exam shows a regular rate and rhythm with /AI/MS/TR. No ST, no S4, no rubs. ABDOMEN: Soft. Bowel sounds normal. No rebound or guarding. EXTREMITIES: Showed dressing over the toes of the right foot. Diminished lower extremity pulses. No cyanosis or clubbing. LABORATORY DATA AND IMAGING STUDIES: Patient is status post angiogram of the lower extremity bilaterally. He had a successful focal right popliteal artery atherectomy and drug-eluting balloon angioplasty with successful right anterior tibial artery angioplasty and successful right posterior tibial artery angioplasty. CBC: White blood cell count today is 10.3 with a hemoglobin of 9.7, platelet count is 308,000. Coags: PT of 18.1 with an INR of 1.56 with a PTT of 31.6. Chemistry showed normal electrolytes. BUN 20 with a creatinine of 6.91, day post dialysis. Glucose is 149. Calcium 9.0. Yesterday's phosphorus was 3.2 with magnesium of 2.1. Liver enzymes are essentially normal. Microbiology: Toe culture positive for Stenotrophomonas maltophilia. Blood cultures are negative at 96 hours. ASSESSMENT: 1. Gangrenous changes, right fifth toe. Patient is scheduled for amputation tomorrow. He is status post revascularization of the right foot with atherectomy and angioplasty. 2. Diabetic foot ulcer. Patient will continue on antibiotic therapy. 3. History of peripheral vascular disease. Successful atherectomy and angioplasty as noted above. 4. History of end-stage renal disease. Patient will continue routine dialysis. Patient was switched to a Wednesday schedule because he missed last Wednesday. Because of surgery planned for tomorrow, patient may dialyze on Wednesday. 5. History of hypertension. Blood pressure controlled on present medication. 6. History of noninsulin-dependent diabetes mellitus. Patient will continue sliding scale insulin. 7. History of anemia secondary to end-stage renal disease. Patient will continue Aranesp per protocol. Hemoglobin is stable at 9.7. 8. Status post past cerebrovascular accident. Stable. 9. History of secondary hyperparathyroidism. Patient's phosphorus level is 3.2. Continue renal diet and binder therapy. PLAN: 1. Discussed with patient the fact that he would like to postpone his dialysis until Wednesday of next week rather than dialyze on Wednesday because he is scheduled for surgery on Wednesday morning. I agree with this decision as his last dialysis was yesterday. 2. Patient is cleared by Cardiology for the proposed amputation of his gangrenous toe. 3. Continue present medications, binder therapy, and diet restrictions. 4. Continue sliding scale insulin. 5. Continue Aranesp at the higher dose to help bring his hemoglobin up to the 10 to 11 range. Phillip Barth MD
[2017-08-30 05:59] LABS: BASO # 0.03 K/mm3 (0.0-2.0); BASO % 0.3 % (0.0-3.0); EOS # 0.4 (0.0-0.7); EOS % 3.6 % (1.5-5.0); GRAN # 8.28 (1.4-6.5); GRAN % 72.1 % (50.0-68.0); HEMOGLOBIN 9.8 g/dL (14.0-18.0); LYMPH # 1.2 (1.2-3.4); LYMPH % 10.7 % (22.0-35.0); MEAN CELL VOLUME 89.6 fl (80.0-105.0); MEAN CORPUSCULAR HEMOGLOBIN 27.5 pg (25.0-35.0); MEAN CORPUSCULAR HGB CONC 30.7 g/dl (31.0-37.0); MEAN PLATELET VOLUME 9.9 fl (7.0-11.0); MONO # 1.5 (0.1-0.6); MONO % 13.3 % (1.0-6.0); RBC 3.56 10^6/uL (3.5-6.1); RED CELL DISTRIBUTION WIDTH 15.5 % (11.5-14.5); WHITE BLOOD COUNT 11.5 10^3/ul (4.5-11.0)
[2017-08-30] MEDS: Pantoprazole 20 mg EC Tab PO SCH ×2 (06:21→15:34)
[2017-08-30 06:26] LABS: INR 1.4 (0.93-1.08); PARTIAL THROMBOPLASTIN TIME 31.6 Seconds (25.1-36.5); PROTHROMBIN TIME 16.2 SECONDS (9.4-12.5)
[2017-08-30 06:54] LABS: ALBUMIN 3.6 g/dL (3.0-4.8); BILIRUBIN,DIRECT 0.5 mg/dL (0.0-0.4); CALCIUM 9.1 mg/dL (8.4-10.5); MAGNESIUM 2.1 mg/dL (1.7-2.2)
[2017-08-30] MEDS ORDERED: Bupivacaine 0.5% Inj(30mL) ONE (07:10)
[2017-08-30] MEDS ORDERED: Lidocaine 2% Inj (20ml) ONE (07:10)
[2017-08-30] MEDS ORDERED: Vancomycin 1 g Inj ONE (07:14)
[2017-08-30] MEDS ORDERED: Etomidate 20 mg/10ml Inj IV ONE (07:42)
--- NOTE | 2017-08-30 08:36 | PCM.SURG1 ---
Surgeon's Initial Post Op Note - Surgeon's Notes Surgeon: Dr. Mayito Schneider Roll Out Manager: Colton Carrera, PGY1 Type of Anesthesia: Local (10cc 0.5% marcaine plain) Anesthesia Administered By: Dr. Bonilla Pre-Operative Diagnosis: Right 5th digit gangrene r/o osteomyelitis Operative Findings: See operative report. Materials: 0 prolene, Elizabeth Osteoset resorbable mini-bead kit impregnated with Vancomycin Post-Operative Diagnosis: Right 5th digit gangrene r/o osteomyelitis Operation Performed: Right 5th digit amputation with partial metatarsal resection Specimen/Specimens Removed: 1) Right 5th digit wound culture, 2) Right 5th digit , 3) 5th metatarsal head, clean margins Estimated Blood Loss: EBL {In ML}: 5 Blood Products Given: N/A Drains Used: No Drains Post-Op Condition: Good Date of Surgery/Procedure: 08/30/17 Time of Surgery/Procedure: 08:40
--- NOTE | 2017-08-30 09:25 | RAD ---
PROCEDURE: Right Foot Radiographs. HISTORY: s/p right 5th digit amputation COMPARISON: 08/24/2017 FINDINGS: BONES: There has been amputation at the level of the distal 5th metatarsal. JOINTS: Normal. SOFT TISSUES: Normal. OTHER FINDINGS: None. IMPRESSION: There has been amputation at the level of the distal 5th metatarsal.
[2017-08-30] MEDS: Oxycodone/Acetaminophen 5/325 mg Tab PO PRN ×2 (10:04→18:37)
[2017-08-30] MEDS: Insulin Lispro (humaLOG) MEDIUM Coverage SC SCH ×3 (10:13→16:43)
[2017-08-30] MEDS: Meropenem 500 MG in Sodium Chloride 0.9% 100 ML IVPB SCH (10:13)
--- NOTE | 2017-08-30 11:32 | CP.PCM.PN ---
Subjective - Date & Time of Evaluation Date of Evaluation: 08/29/17 Time of Evaluation: 09:20 - Subjective Subjective: Had toe amputation and partial metatarsal resection today, no fevers, no diarrhea. Objective - Vital Signs/Intake and Output Vital Signs (last 24 hours): Temp Pulse Resp BP Pulse Ox 97.9 F 68 19 136/53 L 99 08/29/17 06:00 08/29/17 06:00 08/29/17 06:00 08/29/17 06:00 08/29/17 06:00 Intake and Output: 08/29/17 08/29/17 06:59 18:59 Intake Total 240 Output Total 0 Balance 240 - Medications Medications: Current Medications Acetaminophen (Tylenol 325mg Tab) 650 mg PO Q6H PRN PRN Reason: TEMP>=99.5F Last Admin: 08/28/17 23:25 Dose: 650 mg Acetaminophen (Tylenol 325mg Tab) 650 mg PO Q4H PRN PRN Reason: Pain, moderate (4-7) Last Admin: 08/27/17 18:40 Dose: 650 mg Aspirin (Ecotrin) 81 mg PO DAILY [facility] Last Admin: 08/28/17 10:58 Dose: 81 mg Atorvastatin Calcium (Lipitor) 80 mg PO DIN [facility] Last Admin: 08/28/17 16:33 Dose: 80 mg Calcium Acetate (Phoslo) 1,334 mg PO TID [facility] Last Admin: 08/28/17 18:03 Dose: 1,334 mg Cinacalcet (Sensipar) 30 mg PO DAILY [facility] Last Admin: 08/28/17 10:58 Dose: 30 mg Docusate Sodium (Colace) 100 mg PO TID [facility] Last Admin: 08/28/17 18:04 Dose: 100 mg Duloxetine HCl (Cymbalta) 60 mg PO DAILY [facility] Last Admin: 08/28/17 10:58 Dose: 60 mg Ergocalciferol (Drisdol 50,000 Intl Units Cap) 1 cap PO Q7D [facility] Last Admin: 08/24/17 21:15 Dose: Not Given Folic Acid (Folic Acid) 5 mg PO DAILY [facility] Last Admin: 08/28/17 10:58 Dose: 5 mg Meropenem 500 mg/ Sodium (Chloride) 100 mls @ 100 mls/hr IVPB Q24H [facility] PRN Reason: Protocol Stop: 09/04/17 10:31 Last Admin: 08/28/17 11:11 Dose: 100 mls/hr Insulin Human Lispro (Humalog Med) 0 units SC AC [facility] PRN Reason: Protocol Last Admin: 08/29/17 07:49 Dose: Not Given Losartan Potassium (Cozaar) 100 mg PO DAILY [facility] Last Admin: 08/28/17 10:58 Dose: 100 mg Oxycodone/Acetaminophen (Percocet 5/325 Mg Tab) 1 tab PO Q4H PRN PRN Reason: Pain, moderate (4-7) Stop: 09/03/17 18:47 Pantoprazole Sodium (Protonix Ec Tab) 20 mg PO 0600,1600 [facility] Last Admin: 08/29/17 05:57 Dose: 20 mg Sennosides (Senokot Tab) 17.2 mg PO HS [facility] Last Admin: 08/28/17 22:05 Dose: Not Given Warfarin Sodium (Coumadin) 2 mg PO 1800 [facility] PRN Reason: Protocol - Labs Labs: 08/29/17 06:00 08/29/17 06:00 PT 18.1 SECONDS (9.4-12.5) H 08/29/17 06:00 INR 1.56 (0.93-1.08) H 08/29/17 06:00 APTT 31.6 Seconds (25.1-36.5) 08/29/17 06:00 - Constitutional Appears: Chronically Ill - Head Exam Head Exam: NORMAL INSPECTION - ENT Exam ENT Exam: Mucous Membranes Moist - Neck Exam Neck Exam: absent: Meningismus - Respiratory Exam Respiratory Exam: Decreased Breath Sounds - Cardiovascular Exam Cardiovascular Exam: +S1, +S2 - GI/Abdominal Exam GI & Abdominal Exam: Soft. absent: Tenderness - Extremities Exam Additional comments: right foot with dressings in place Assessment and Plan - Assessment and Plan (Free Text) Plan: Assessment Consider right foot skin and skin structure infection, severe, R/O osteomyelitis , growing Stenotrophomonas, S/P right 5th toe amputation and 5th metatarsal partial amputation today ESRD on HD history of CVA HTN cataracts DM Plan continue Merrem and will follow up OR cultures and pathology will monitor clinically
--- NOTE | 2017-08-30 11:56 | PN ---
DATE: 08/30/2017 CARDIOLOGY FOLLOWUP SUBJECTIVE: The patient tolerated surgery today. He is awake, alert without shortness of breath, without chest pain. PHYSICAL EXAMINATION VITAL SIGNS: Blood pressure is 150/56, the heart rate is 68, normal sinus rhythm with occasional PVCs. NECK: Negative JVD. LUNGS: Without rales. HEART: Reveals S1 and S2. EXTREMITIES: The lower extremity is bandaged. LABORATORY DATA: Hemoglobin is 10.8. Chemistries: BUN and creatinine are noted. IMPRESSION: 1. The patient tolerated surgery today. 2. Critical aortic stenosis. 3. End-stage renal disease. 4. Peripheral vascular disease. PLAN: Given these findings, we will need to monitor the patient carefully for hemodynamics. I have discussed with the patient and family about the need to address the aortic valve stenosis once he recovers from his surgery and his infections. Mayito Rolle MD
--- NOTE | 2017-08-30 15:08 | PN ---
DATE: 08/30/2017 SUBJECTIVE: The patient is seen lying in the bed in room 267, bed 1. The patient just returned from the OR. Telemetry monitoring shows sinus rhythm. No arrhythmias noted. PHYSICAL EXAMINATION VITAL SIGNS: T-max is 98.2. Pulse 68-69-65. Blood pressure 150/56, 158/62, 138/51. Respiration 14-18. O2 sat 100%. Intake and output not documented. HEAD: Normocephalic, atraumatic. EENT: Shows pinkish pale conjunctivae. Anicteric sclerae. No oropharyngeal lesion. No neck rigidity. Soft carotid bruit. CHEST: Kyphosis. LUNGS: Shows decreased breath sounds at the bases, left more than the right. No rales, crackles or wheezing. CARDIOVASCULAR: Shows S1, S2, regular rhythm. Positive systolic murmur at left sternal border, right second intercostal space, left second intercostal space. ABDOMEN: Obese, protuberant. Positive bowel sounds. GENITALIA: Male. RECTAL: Deferred. EXTREMITY: Shows positive right foot dressing with some bleeding noted. Decreasing lymphedema of the lower extremity noted. MUSCULOSKELETAL: Shows a body mass index of 60. NEUROLOGIC: The patient is alert, awake, oriented x3. Cranial nerves II-XII grossly limited. Gait examination could not be tested. DIAGNOSTICS: On 08/30; WBC 11.5, hemoglobin/hematocrit 9.8 and 32, platelet 324, granulocytes 72. PT 16.2, PTT 31.6. Sodium 137, potassium 3.9, chloride 95, CO2 of 29, anion gap 16, BUN 31, creatinine 8.8, GFR 7. Glucose 184, 179, 185. Calcium 9.1. LFT shows alkaline phosphatase of 140. Wound cultures of the right foot toe, Stenotrophomonas maltophilia. The patient had an x-ray of the foot done postoperatively, which shows amputation at the level of the distal fifth metatarsal. IMPRESSION: 1. Right foot fifth digit metatarsal amputation with antibiotic-eluting beads and amputation of the right fifth foot toe. 2. Right foot fifth digit gangrene with questionable osteomyelitis. 3. Questionable postop right foot fifth digit amputation with partial metatarsal resection bleeding. 4. Distal fifth metatarsal amputation. 5. Hypertension. 6. Leukocytosis with granulocytosis. 7. Elevated erythrocyte sedimentation rate of 114. 8. Normocytic anemia with granulocytosis. 9. History of multiple acute cerebral infarct, Coumadin-dependent requiring. 10. End-stage renal disease, hemodialysis dependent via the left upper extremity arteriovenous fistula 3 times a week. 11. Insulin-requiring diabetes mellitus. 12. Morbid obesity with elevated body mass index of 60. 13. Right foot fifth toe Stenotrophomonas maltophilia gangrene, diabetic foot ulceration and cellulitis. 14. Left ventricular ejection fraction of 60%. 15. Pulmonary arterial hypertension with right ventricular systolic pressure of 46 mmHg. 16. Concentric left ventricular hypertrophy. 17. Moderately dilated left atrium. 18. Calcified aortic valve with decreased opening and severe valvular aortic stenosis. 19. Calcified mitral valve with decreased opening and trace mitral regurgitation and moderate mitral stenosis. 20. Tricuspid regurgitation with pulmonary arterial hypertension with right ventricular systolic pressure of 46 mmHg. 21. Gait dysfunction. 22. Deconditioning. PLAN: At this time, the patient has been ordered repeat serial labs. The patient's current consultation: 1. Podiatry. 2. Interventional Radiology. 3. Nephrology. 4. Infectious Disease. 5. Cardiology. The patient's case was referred for diabetic education evaluation, TCU evaluation. CURRENT MEDICATIONS: Colace 100 mg 3 times a day, Cozaar 100 mg daily, Cymbalta 60 mg daily, Drisdol 50,000 units weekly, Ecotrin 81 mg daily, folic acid 5 mg daily, heparin drip to be resumed after Podiatry clearance, Humalog medium-dose sliding scale coverage a.c. meals, Lipitor 80 mg daily, meropenem 500 IV q. 24, Percocet 1-2 tablets q. 4 hours p.r.n. The patient will be continued on the above therapeutic intervention. The patient's case is referred to [facility] for discharge planning. The patient has been advised to contact [facility] for discharge planning. The patient's management discussed with the medical assistant instructor and nurse practitioner, Irena. At present, the patient is seen in room 267, bed 1. The patient is seen lying in the bed. The patient has been extensively explained about the details of his management condition, diagnosis, treatment plan, management plan, which he acknowledged and understands. Dictated and electronically signed, not read. Steve Rincon MD
--- NOTE | 2017-08-30 20:24 | OP ---
PROCEDURE DATE: 08/30/2017 SURGEON: Mayito Schneider DPM. BUTTER LIQUEFIER: Anmol Carrera DPM, PGY-1 ANESTHESIOLOGIST: Chandni Bonilla M.D. TYPE OF ANESTHESIA: Local, 10 mL of 0.5% Marcaine plain. PREOPERATIVE DIAGNOSIS: Right fifth digit gangrene, rule out osteomyelitis. POSTOPERATIVE DIAGNOSIS: Right fifth digit gangrene, rule out osteomyelitis. PROCEDURE: Right fifth digit amputation with partial metatarsal resection. INDICATIONS: The patient is a 66-year-old male with the above diagnosis. The patient has exhausted conservative treatments at this time and now requests surgical intervention. Patient signed the consent after careful explanation of risks, benefits, complications, and alternatives to procedure and wishes to proceed. No guarantees were given nor implied. PREPARATION: The patient was brought into the operating room and was left on the stretcher in the supine position for the remainder of the procedure. A time-out was performed for identification of the correct patient and procedure. The patient received a total of 10 mL of 0.5% Marcaine plain in a reverse Aguilar block fashion. Once local anesthesia was achieved, the right foot was then prepped and draped in normal sterile manner and the procedure began. DESCRIPTION OF PROCEDURE: RIGHT FIFTH DIGIT AMPUTATION WITH PARTIAL METATARSAL RESECTION: Attention was directed to the right fifth digit where it was noted to have demarcated dark necrotic changes extending proximally into the base of the digit; the skin overlying the dorsum of the fifth metatarsal shaft was eroded revealing a red granular base. At this time, it was also noted that the right fourth digit appeared to be darkened in color circumferentially; the right fourth digit appeared to be quite dusky and capillary refill time for the right fourth digit was unable to be assessed at this time. Utilizing a #15 blade, a dorsally based teardrop incision was made from the distal aspect of the fifth metatarsal and then circumferentially at the level of the fifth metatarsophalangeal joint. The incision was extended down through subcutaneous layers to the level of bone. Using a bone clamp to stabilize the fifth digit, the fifth digit was then disarticulated from the foot at the level of the fifth metatarsophalangeal joint. The specimen was then passed from the operative field to be sent to Pathology. At this time, a wound culture was taken at the amputation site, passed off the operative field to be sent to Pathology. The amputation site was noted to have decreased blood perfusion at its distal medial aspect. Next, directing attention to the fifth metatarsal head, all periosteal tissue was carefully resected using a marc elevator. Using a sagittal saw, the fifth metatarsal head was resected from dorsal distal medial to plantar proximal lateral, passed from the operative field to be sent to Pathology. Using a crown and collar, skin margins were debulked to allow for adequate reapproximation of wound edges. The surgical site was then irrigated with copious amounts of bacitracin infused sterile saline. A horizontal mattress suture was placed at the midpoint of the amputation site using 0 Prolene. Elizabeth OSTEOSET Resorbable Mini-Beads impregnated with vancomycin was placed at the amputation site. The surgical wound was then dressed with betadine-soaked Adaptic and dressed with betadine-soaked gauze, sterile gauze, ABD, and kerlix. POSTOPERATIVE CONDITION: The patient tolerated the anesthesia and procedure well and was escorted to the Recovery Room with vital signs stable and neurovascular status intact to the right foot. If the amputation site did not bleed profusely status post revascularization, the patient will likely need a surgical revision. Patient may need a fourth digit amputation or possibly a TMA. The patient will have daily dressing changes and will continue to monitor blood flow. The patient will be partial weightbearing to the heel in a surgical shoe and out of bed to the bathroom. Patient will not have his right leg elevated and may keep his right lower extremity in a dependent position in the recliner POD#1. Podiatry will continue to follow while in-house. Anmol Carrera DPM Mayito Schneider DPM SHAILESH
[2017-08-31] MEDS: Oxycodone/Acetaminophen 5/325 mg Tab PO PRN ×2 (04:06→11:18)
[2017-08-31] MEDS: Pantoprazole 20 mg EC Tab PO SCH ×2 (05:21→16:31)
[2017-08-31 06:02] LABS: BASO # 0.02 K/mm3 (0.0-2.0); BASO % 0.2 % (0.0-3.0); EOS # 0.5 (0.0-0.7); EOS % 4.2 % (1.5-5.0); GRAN # 7.79 (1.4-6.5); GRAN % 73.1 % (50.0-68.0); HEMOGLOBIN 8.9 g/dL (14.0-18.0); LYMPH # 1.4 (1.2-3.4); LYMPH % 12.9 % (22.0-35.0); MEAN CELL VOLUME 89.3 fl (80.0-105.0); MEAN CORPUSCULAR HGB CONC 31.3 g/dl (31.0-37.0); MONO % 9.6 % (1.0-6.0); RBC 3.18 10^6/uL (3.5-6.1); RED CELL DISTRIBUTION WIDTH 15.6 % (11.5-14.5); WHITE BLOOD COUNT 10.7 10^3/ul (4.5-11.0)
[2017-08-31 06:16] VITALS: O2SAT 97
[2017-08-31 06:24] LABS: INR 1.35 (0.93-1.08); PARTIAL THROMBOPLASTIN TIME 30.2 Seconds (25.1-36.5); PROTHROMBIN TIME 15.6 SECONDS (9.4-12.5)
[2017-08-31] MEDS: Insulin Lispro (humaLOG) MEDIUM Coverage SC SCH ×3 (07:30→16:24)
[2017-08-31 08:04] LABS: ALBUMIN 3.3 g/dL (3.0-4.8); BILIRUBIN,DIRECT 0.5 mg/dL (0.0-0.4); CALCIUM 9.1 mg/dL (8.4-10.5)
--- NOTE | 2017-08-31 09:02 | PN ---
DATE: 08/30/2017 SUBJECTIVE: Patient is seen lying in bed. He is sleeping. Somewhat sedated. He had his toe amputated this morning. PHYSICAL EXAMINATION: GENERAL: Obese, elderly male, lying in bed. VITAL SIGNS: Blood pressure 146/57, heart rate 70, respiratory rate 20, temperature 98.1. HEENT: Normocephalic, atraumatic, positive pallor. NECK: Supple, no JVD. LUNGS: Bilateral equal air entry, no rales. CARDIAC: S1 and S2, regular rate and rhythm, no murmur, no rub. ABDOMEN: Obese, distended, soft, nontender, bowel sounds present. EXTREMITIES: Dressing of the right foot. INTAKE AND OUTPUT: . LABORATORY DATA: WBC 11.5, hemoglobin 9.8, hematocrit 32, platelets 324. Sodium 137, potassium 3.9, chloride 95, CO2 29, BUN 31, creatinine 8.8, glucose 179, calcium 9.1, magnesium 2.1, albumin 3.6. CURRENT MEDICATIONS: Colace, Cozaar 100, Cymbalta, Drisdol, Ecotrin, folic acid, heparin 12 units/kg/hour, Humalog insulin, Lipitor, meropenem 500 q. 24, Percocet, PhosLo, Protonix, Senokot, Sensipar, Tylenol. ASSESSMENT: 1. Gangrene of the fifth toe of the right foot, status post amputation. 2. Diabetic foot ulcer. 3. Pulmonary artery disease. 4. End-stage renal disease. 5. Hypertension. 6. Non-insulin dependent diabetes mellitus. 7. Chronic anemia. 8. Recent cerebrovascular accident. 9. Hyperphosphatemia/secondary hyperparathyroidism. PLAN: 1. Patient is having some bleeding from his wound, and we will hold dialysis today. 2. Dialysis tomorrow. 3. Monitor fingersticks. 4. Continue empiric antibiotics. 5. Continue phosphate binders. 6. Continue current . Svetlana Hillman MD
--- NOTE | 2017-08-31 10:58 | PN ---
DATE: 08/31/2017 CARDIOLOGY FOLLOWUP SUBJECTIVE: The patient is status post toe amputation. No angina. No shortness of breath noted. PHYSICAL EXAMINATION: VITAL SIGNS: Blood pressure is 119/40 with heart rates in the 60s. NECK: Negative JVD. LUNGS: Without rales. HEART: Reveals S1, S2. EXTREMITIES: Bandage in the lower extremities. LABORATORY DATA: Hemoglobin is 8.9. Potassium is 4.2. IMPRESSION: 1. Status post surgery of the lower extremity. 2. End-stage renal disease. 3. Critical aortic stenosis. 4. Peripheral vascular disease. PLAN: Given these findings, the patient remains hemodynamically stable. We will continue monitoring hemodynamics carefully. The patient shows no arrhythmias. We will discontinue telemetry today. Mayito Rolle MD
[2017-08-31] MEDS: Meropenem 500 MG in Sodium Chloride 0.9% 100 ML IVPB SCH (11:20)
--- NOTE | 2017-08-31 13:11 | CP.PCM.PN ---
Subjective - Date & Time of Evaluation Date of Evaluation: 08/31/17 Time of Evaluation: 13:11 - Subjective Subjective: Podiatry Progress Note - Dr. Schneider 66 year old male patient PMHx IDDM, HTN, ESRD on HD (MWF), CVA, cataracts, seen and evaluated at bedside for right 5th digit gangrene POD#1 5th digit amputation with partial metatarsal resection. No acute events overnight. Patient states he was experiencing 10/10 pain to right foot during dialysis today; pain currently decreased and well-controlled. Patient relates that he has not been ambulating on his right foot. Offers no other pedal complaints. Denies N/V/F/D/C/SOB/calf pain. Objective - Vital Signs/Intake and Output Vital Signs (last 24 hours): Temp Pulse Resp BP Pulse Ox 97.9 F 69 20 129/50 L 97 08/31/17 12:00 08/31/17 12:00 08/31/17 12:00 08/31/17 12:00 08/31/17 06:00 Intake and Output: 08/31/17 08/31/17 06:59 18:59 Intake Total 120 680 Balance 120 680 - Medications Medications: Current Medications Acetaminophen (Tylenol 325mg Tab) 650 mg PO Q6H PRN PRN Reason: TEMP>=99.5F Last Admin: 08/28/17 23:25 Dose: 650 mg Acetaminophen (Tylenol 325mg Tab) 650 mg PO Q4H PRN PRN Reason: Pain, Mild (1-3) Aspirin (Ecotrin) 81 mg PO DAILY [facility] Last Admin: 08/31/17 11:18 Dose: 81 mg Atorvastatin Calcium (Lipitor) 80 mg PO DIN [facility] Last Admin: 08/30/17 18:37 Dose: 80 mg Calcium Acetate (Phoslo) 1,334 mg PO TID [facility] Last Admin: 08/31/17 11:19 Dose: 1,334 mg Cinacalcet (Sensipar) 30 mg PO DAILY [facility] Last Admin: 08/31/17 11:20 Dose: 30 mg Docusate Sodium (Colace) 100 mg PO TID [facility] Last Admin: 08/31/17 11:20 Dose: 100 mg Duloxetine HCl (Cymbalta) 60 mg PO DAILY [facility] Last Admin: 08/31/17 11:20 Dose: 60 mg Ergocalciferol (Drisdol 50,000 Intl Units Cap) 1 cap PO Q7D [facility] Last Admin: 08/24/17 21:15 Dose: Not Given Folic Acid (Folic Acid) 5 mg PO DAILY [facility] Last Admin: 08/31/17 11:18 Dose: 5 mg Meropenem 500 mg/ Sodium (Chloride) 100 mls @ 100 mls/hr IVPB Q24H [facility] PRN Reason: Protocol Stop: 09/04/17 10:31 Last Admin: 08/31/17 11:20 Dose: 100 mls/hr Heparin Sodium/Sodium Chloride (Heparin 71083 Units/250ml 1/2 Normal Saline) 25 ,000 units in 250 mls @ 20.139 mls/hr IV .[id number] PRN; Protocol; 12 UNITS/KG/HR PRN Reason: ADJUST RATE PER PROTOCOL Last Admin: 08/29/17 15:29 Dose: 12 units/kg/hr, 20.139 mls/hr Insulin Human Lispro (Humalog Med) 0 units SC AC [facility] PRN Reason: Protocol Last Admin: 08/31/17 07:30 Dose: Not Given Losartan Potassium (Cozaar) 100 mg PO DAILY [facility] Last Admin: 08/31/17 11:19 Dose: 100 mg Oxycodone/Acetaminophen (Percocet 5/325 Mg Tab) 2 tab PO Q4H PRN PRN Reason: Pain, severe (8-10) Stop: 09/02/17 08:47 Last Admin: 08/31/17 11:18 Dose: 2 tab Pantoprazole Sodium (Protonix Ec Tab) 20 mg PO 0600,1600 [facility] Last Admin: 08/31/17 05:21 Dose: 20 mg Sennosides (Senokot Tab) 17.2 mg PO HS [facility] Last Admin: 08/30/17 21:40 Dose: 17.2 mg - Labs Labs: 08/31/17 05:30 08/31/17 05:30 PT 15.6 SECONDS (9.4-12.5) H 08/31/17 05:30 INR 1.35 (0.93-1.08) H 08/31/17 05:30 APTT 30.2 Seconds (25.1-36.5) 08/31/17 05:30 - Constitutional Appears: Well, Non-toxic, No Acute Distress - Extremities Exam Additional comments: RLE focused physical exam: VASC: DP pulses palpable 2/4. PT pulses weakly palpable 1/4. CFT <3 seconds to digits 1-3, unable to assess 4th digit. Temperature gradient warm to warm. Nonpitting edema noted to forefoot, +1 pitting edema noted to right leg. NEURO: Gross sensation diminished. DERM: 5th digit amputation surgical wound with 1 retention suture left intact; wound appers to have a 100% granular base and maceration noted plantarly; skin erosion at dorsal aspect; antibiotic beads present within wound. 4th digit appears dusky in color with erosion of skin dorsally. Digits 1-3 color WNL at present with normal skin turgor. Interspaces 1-3 remain macerated. ORTHO: 5th digit amputation. Pain on palpation 4th digit. No pain on palpation digits 1-3. - Neurological Exam Neurological Exam: Alert, Awake, Oriented x3 - Psychiatric Exam Psychiatric exam: Normal Affect, Normal Mood Assessment and Plan - Assessment and Plan (Free Text) Assessment: 66 year old male with 1) right 5th digit gangrene r/o osteomyelitis, POD#1 Right 5th digit amputation with partial metatarsal resection, 2) right 4th digit ischemia Plan: Patient seen and evaluated Discussed with attending, Dr. Schneider Afebrile, WBC 10.7 Venous duplex report: Negative for DVT Arterial duplex report: Limited study due to calcified vessels; right SFA occlusive disease; right distal waveforms are severely blunted -s/p vascular intervention 08/27/17 Right foot MRI - limited interpretation R foot XR (08/30/17): s/p amputation 5th digit with resection of distal 5th metatarsal R 5th digit WCx reveals growth of stenotrophomonas maltophilia F/u intra-op specimens: 1) Right 5th digit wound culture, 2) Right 5th digit, 3 ) 5th metatarsal head, clean margins 4th digit developing ischemic changes, will continue to monitor Surgical site cleansed with sterile saline and dressed with betadine-soaked adaptic, DSMatthias Patient to be PWB to heel only in surgical shoe No ice or elevation to RLE Continue abx per ID - Merrem Pain control - Tylenol 650mg PO, Percocet 1-2 tabs PO Patient stable for d/c to TCU; patient may need to be readmitted at a later date for subsequent sx Podiatry will continue to follow patient while in house
[2017-08-31] MEDS ORDERED: Oxycodone/Acetaminophen 5/325 mg Tab PO PRN (15:41)
[2017-08-31] MEDS ORDERED: Heparin25000 units/250ml 1/2NS 25,000 UNITS/250 ML BAG IV SCH (15:45)
[2017-08-31] MEDS: Ergocalciferol 50,000 Intl Units Cap PO SCH (17:27)
[2017-08-31 17:50] VITALS: BP 129/49; PULSE 65; RESP 18; TEMP 98
--- NOTE | 2017-08-31 18:10 | PN ---
DATE: SUBJECTIVE: The patient is currently seen completing dialysis. He had received 2 units of packed red blood cells. He continues to have some mild oozing from the surgical site of the right foot status post toe amputation. 3.5 kilos of fluid were removed with dialysis today. The patient appears to be in good spirits. MEDICATIONS: Medication list reviewed. The patient is currently on Colace, Cozaar, Cymbalta, vitamin D, Ecotrin, folic acid, insulin, Lipitor, meropenem, oxycodone with Tylenol, PhosLo, Protonix, Senokot, Sensipar, and Tylenol p.r.n. OBJECTIVE: INTAKE/OUTPUT. Intake is 680, output is not charted. VITAL SIGNS: Blood pressure 141/54, temperature 98.5, respiratory rate 18 with a pulse of 69. HEENT: Exam shows him to be normocephalic, atraumatic. Conjunctivae are pale. Sclerae nonicteric. NECK: Supple. No neck vein distention. CHEST: Clear to auscultation and percussion. No rales, rhonchi, or wheezing. CARDIOVASCULAR: Shows a regular rate and rhythm with /AI/MS/TR. No S3, no S4. No rub. ABDOMEN: Soft. Bowel sounds normal. No rebound or guarding. EXTREMITIES: The patient has a dressing over the toes of his right foot. There appears to be mild bloody drainage. He has diminished lower extremity pulses. No cyanosis or clubbing. LABORATORY DATA AND IMAGING: Labs for today: White blood cell count 10.7. Hemoglobin is 8.9, down from 9.8 previous day. Platelet count is 315,000. Chemistries: Normal electrolytes. BUN 41 with a creatinine of 10.6. Glucose is 150. Liver enzymes are normal. Albumin is 3.3. Microbiology: Blood cultures are negative at 5 days. Stool culture was positive for Stenotrophomonas maltophilia. ASSESSMENT: 1. Status post amputation of his right fifth toe. This is secondary to gangrenous changes. He apparently tolerated the procedure well. He does have mild bleeding and had received 2 units of packed red blood cells with today's dialysis. He is status post revascularization of his right foot with atherectomy and angioplasty. 2. History of diabetic foot ulcer. The patient will continue present antibiotic therapy. 3. History of peripheral vascular disease, status post successful atherectomy and angioplasty, so the hope is that the amputation site will heal. 4. History of end-stage renal disease. The patient will continue routine dialysis. We did not dialyze him yesterday because of the procedure. He has currently been switched to a Wednesday, , Wednesday, but when he returns to [facility], he may switch back to a Wednesday, Wednesday, and Wednesday schedule. 5. History of hypertension. Blood pressure is controlled. 6. History of eax-[id number] diabetes mellitus. The patient will continue sliding insulin. 7. History of anemia secondary to end-stage renal disease with superimposed bleeding secondary to toe surgery. The patient had received 2 units of packed red blood cells. Try to keep hemoglobin in the 10 to 11 range. 8. Status post cerebrovascular accident, stable. 9. History of secondary hyperparathyroidism. The patient's calcium level today was 9.1. Phosphorus level is pending. Continue renal diet and binder therapy. PLAN: 1. Continue to monitor the patient postoperatively with surgical followup. 2. Continue sliding scale insulin. 3. Complete course of antibiotic therapy for his diabetic lower extremity ulcer. 4. Continue highest dose of Aranesp in order to keep the hemoglobin in the 10 to 11 range and transfuse p.r.n. 5. P.r.n. pain medications for postop pain. Phillip Barth MD
--- NOTE | 2017-09-02 07:49 | DS ---
FINAL PROGRESS NOTE AND DISCHARGE SUMMARY HISTORY OF PRESENT ILLNESS: The patient is now accepted to TCU after being cleared by the Podiatry. Patient was seen in dialysis today while getting dialyzed; patient was seen between the hours of 9:30 and 10:00 a.m. Patient is complaining of right foot pain. PHYSICAL EXAMINATION: VITAL SIGNS: T-max 98.5. Telemetry shows sinus rhythm; heart rate 67, 69; blood pressure in the last 24 hours 140/57, 150/66, 134/90, 119/64, 124/66, 141/54; respirations 18 to 20; O2 sat was averaging 100% to 96%. Intake and output not documented because the patient is anuric. GENERAL: Patient is seen lying in the stretcher. HEENT: Head examination: Normocephalic, atraumatic. HEENT examination shows pink conjunctivae. Anicteric sclerae. No oropharyngeal lesion. NECK: No neck rigidity. CHEST: Kyphosis. LUNGS: Show no rales, crackles, or wheezing. CARDIOVASCULAR: S1, S2, regular rhythm. Positive systolic murmur in left sternal border, right second intercostal space, left second intercostal space. ABDOMEN: Soft, obese. Positive bowel sounds. No hepatosplenomegaly palpable. GENITALIA: Male. RECTAL: Deferred. EXTREMITIES: Left upper extremity shows AV fistula, positive thrill. Right lower extremity shows gauze dressing with some bleeding noted in the underlying dressing. Positive lymphedema of the lower extremity. MUSCULOSKELETAL: Shows a body mass index of 60. NEUROLOGIC: The patient is alert, awake, and oriented x3. Cranial nerves II through XII intact. Gait examination is not tested. DIAGNOSTICS: On 08/31/2017; WBC 10.7, hemoglobin and hematocrit have dropped to 8.9 and 28.4 from hemoglobin and hematocrit of 10.3 and 32.1, platelets of 315, granulocytes 73%. PT/PTT 15.6/30.0. Sodium 134, potassium 4.2, chloride 92, CO2 of 33, anion gap 14. BUN 41, creatinine 10.6. GFR 6. Fingerstick blood sugar is 135, 162, 150. Calcium 9.1, phosphorus 2.1, magnesium 2.0, alk phos 136. Procalcitonin was 1.46. Operating room right foot fifth toe cultures are growing Gram-positive cocci, moderate growth. Patient was typed and crossmatched for 2 units. IMPRESSION: 1. Status post right foot fifth toe/fifth digit amputation and metatarsal amputation with antibiotic-eluting beads. 2. Right foot fifth toe/digit gangrene versus questionable osteomyelitis. 3. Status post right foot fifth toe/fifth digit amputation, postoperative day 1. 4. Right fourth digit ischemia. 5. Peripheral vascular disease. 6. Right foot fifth toe Stenotrophomonas maltophilia and Gram-positive cocci, diabetic foot ulceration, and gangrene. 7. Hypertension. 8. Normocytic anemia with decreasing hemoglobin and hematocrit. 9. Leukocytosis with granulocytosis. 10. Elevated erythrocyte sedimentation rate of 114. 11. History of multiple acute cerebral infarct, Coumadin requiring. 12. Hyper-procalcitoninemia. 13. Status post 2 units of packed red blood cells transfusion. 14. Gait dysfunction. 15. Deconditioning. 16. Nonhealing diabetic foot ulceration. 17. End-stage renal disease, hemodialysis dependent. 18. Anemia of chronic kidney disease. 19. Status post right foot fifth digit/fifth toe amputation and partial metatarsal resection, postoperative day 1. 20. A positive blood type. 21. Constipation. 22. Diabetic neuropathy. 23. Hypovitaminosis D. 24. Insulin-requiring diabetes mellitus. 25. Dyslipidemia. 26. Right foot pain syndrome. 27. Secondary hyperparathyroidism with hyperphosphatemia. PLAN: At this time, patient has been cleared by Podiatry for admission to TCU (Transitional Care Unit). DISCHARGE MEDICATIONS: 1. Colace 100 mg three times a day. 2. Cozaar 100 mg daily. 3. Cymbalta 60 mg daily. 4. Drisdol 50,000 units weekly. 5. Ecotrin 81 mg daily. 6. Folic acid 5 mg daily. 7. Heparin drip to be started, non titratable. 8. Humalog medium dose sliding scale coverage. 9. Lipitor 80 mg daily. 10. Meropenem 500 mg IV q.24. 11. Percocet 5/325 two tablets q.4 p.r.n. 12. PhosLo 1334 mg three times a day. 13. Protonix 40 mg daily. 14. Senokot 17.2 mg at bedtime. 15. Sensipar 30 mg daily. 16. Tylenol 650 mg p.o. suppository p.r.n. for pain. Patient was seen by the neurologist today who cleared the patient for transfer to TCU. Recommend that right foot fourth digit will have developing ischemic changes. Patient's surgical site was cleaned with Betadine soap. Patient was advised partial weightbearing to heel only on the surgical shoe, no ice or elevation to right lower extremity. Continue IV antibiotic. Patient may need to be readmitted at a later date for subsequent right foot fourth digit surgery. Patient was seen by the process manufacturing engineer. Patient was seen by insole and heel stiffener. Their recommendations were noted. Time spent in the entire discharge process more than 45 minutes. Patient's case was also referred to the [facility]. Patient was advised that patient may require subacute rehab for longer IV antibiotic. Patient for the time-being was referred to [facility]. Patient's case was referred to [facility] at [facility] for longer IV antibiotics. Patient at present will be discharged to Transitional Care Unit. Patient may be readmitted for further right foot fourth digit surgery. Dictated and electronically signed, not read. Steve Rincon MD
== END 2017-08-31 18:45 | DRG 270 ==
LOC: ED 15:53 → ERH 17:46 → 5RNO 22:22 → 2RNO 08-27 10:41
PROVIDERS: ADMIT Internal Medicine; ATTEND Internal Medicine
PROC: 5A1D70Z Performance of Urinary Filtration, Intermittent, Less than 6 Hours Per Day (ICD-10-PCS; 2017-08-25)
PROC: 5A1D70Z Performance of Urinary Filtration, Intermittent, Less than 6 Hours Per Day (ICD-10-PCS; 2017-08-26)
PROC: 04CM3ZZ Extirpation of Matter from Right Popliteal Artery, Percutaneous Approach (ICD-10-PCS; 2017-08-27)
PROC: 047M3Z1 Dilation of Right Popliteal Artery using Drug-Coated Balloon, Percutaneous Approach (ICD-10-PCS; 2017-08-27)
PROC: 047P3ZZ Dilation of Right Anterior Tibial Artery, Percutaneous Approach (ICD-10-PCS; 2017-08-27)
PROC: 047R3ZZ Dilation of Right Posterior Tibial Artery, Percutaneous Approach (ICD-10-PCS; 2017-08-27)
PROC: 5A1D70Z Performance of Urinary Filtration, Intermittent, Less than 6 Hours Per Day (ICD-10-PCS; 2017-08-28)
PROC: 0Y6M0ZF Detachment at Right Foot, Partial 5th Ray, Open Approach (ICD-10-PCS; principal; 2017-08-30 07:30)
PROC: 5A1D70Z Performance of Urinary Filtration, Intermittent, Less than 6 Hours Per Day (ICD-10-PCS; 2017-08-31)
PROC: 30233N1 Transfusion of Nonautologous Red Blood Cells into Peripheral Vein, Percutaneous Approach (ICD-10-PCS; 2017-08-31)
DX: E11.52 Type 2 diabetes mellitus with diabetic peripheral angiopathy with gangrene (principal); N18.6 End stage renal disease; E11.22 Type 2 diabetes mellitus with diabetic chronic kidney disease; E11.40 Type 2 diabetes mellitus with diabetic neuropathy, unspecified; E66.01 Morbid (severe) obesity due to excess calories; I08.3 Combined rheumatic disorders of mitral, aortic and tricuspid valves; I13.11 Hypertensive heart and chronic kidney disease without heart failure, with stage 5 chronic kidney disease, or end stage renal disease; J98.11 Atelectasis; L03.115 Cellulitis of right lower limb; N25.81 Secondary hyperparathyroidism of renal origin; Z68.44 Body mass index [BMI] 60.0-69.9, adult; L02.611 Cutaneous abscess of right foot; L76.22 Postprocedural hemorrhage of skin and subcutaneous tissue following other procedure; T82.838A Hemorrhage due to vascular prosthetic devices, implants and grafts, initial encounter; E11.319 Type 2 diabetes mellitus with unspecified diabetic retinopathy without macular edema; E11.36 Type 2 diabetes mellitus with diabetic cataract; E11.621 Type 2 diabetes mellitus with foot ulcer; E11.65 Type 2 diabetes mellitus with hyperglycemia; D63.1 Anemia in chronic kidney disease; E55.9 Vitamin D deficiency, unspecified; E78.00 Pure hypercholesterolemia, unspecified; E78.1 Pure hyperglyceridemia; E78.5 Hyperlipidemia, unspecified; E83.39 Other disorders of phosphorus metabolism; I25.10 Atherosclerotic heart disease of native coronary artery without angina pectoris; I27.21 Secondary pulmonary arterial hypertension; I28.9 Disease of pulmonary vessels, unspecified; I48.91 Unspecified atrial fibrillation; I65.22 Occlusion and stenosis of left carotid artery; I70.201 Unspecified atherosclerosis of native arteries of extremities, right leg; I87.8 Other specified disorders of veins; I89.0 Lymphedema, not elsewhere classified; K21.9 Gastro-esophageal reflux disease without esophagitis; K59.00 Constipation, unspecified; K80.20 Calculus of gallbladder without cholecystitis without obstruction; L03.031 Cellulitis of right toe; L97.519 Non-pressure chronic ulcer of other part of right foot with unspecified severity; N25.0 Renal osteodystrophy; N62 Hypertrophy of breast; R09.02 Hypoxemia; Y84.8 Other medical procedures as the cause of abnormal reaction of the patient, or of later complication, without mention of misadventure at the time of the procedure; Z79.01 Long term (current) use of anticoagulants; Z79.4 Long term (current) use of insulin; Z79.82 Long term (current) use of aspirin; Z79.899 Other long term (current) drug therapy; Z86.73 Personal history of transient ischemic attack (TIA), and cerebral infarction without residual deficits; Z87.01 Personal history of pneumonia (recurrent); Z91.11 Patient's noncompliance with dietary regimen; Z91.14 Patient's other noncompliance with medication regimen; Z99.2 Dependence on renal dialysis; R70.0 Elevated erythrocyte sedimentation rate; R91.1 Solitary pulmonary nodule; Y83.8 Other surgical procedures as the cause of abnormal reaction of the patient, or of later complication, without mention of misadventure at the time of the procedure; T45.515A Adverse effect of anticoagulants, initial encounter

== ENCOUNTER 2017-08-31 18:09 | Inpatient (IN) | payer OTHER, MEDICARE ==
[2017-08-31 20:03] VITALS: BMI 59.7
[2017-08-31] MEDS ORDERED: Ergocalciferol 50,000 Intl Units Cap PO SCH (20:15)
[2017-08-31] MEDS ORDERED: Heparin25000 units/250ml 1/2NS 25,000 UNITS/250 ML BAG IV PRN (20:45)
[2017-08-31] MEDS: Oxycodone/Acetaminophen 5/325 mg Tab PO PRN (21:36)
[2017-08-31] MEDS ORDERED: Pneumococcal 23-Valent Vaccine IM ONE (22:20)
[2017-08-31] MEDS ORDERED: Influenza Vaccine 60 mcg/0.5 mL SYR (4YR UP) IM ONE (22:20)
[2017-09-01] MEDS: Oxycodone/Acetaminophen 5/325 mg Tab PO PRN ×3 (05:51→22:19)
[2017-09-01] MEDS: Pantoprazole 20 mg EC Tab PO SCH ×2 (05:51→18:29)
[2017-09-01] MEDS ORDERED: Meropenem 500 MG in Sodium Chloride 0.9% 100 ML IVPB SCH (06:00)
[2017-09-01] MEDS: Insulin Reg-MEDIUM-Coverage SC SCH ×4 (06:40→22:40)
[2017-09-01 07:16] LABS: BASO # 0.01 K/mm3 (0.0-2.0); BASO % 0.1 % (0.0-3.0); EOS # 0.4 (0.0-0.7); EOS % 3.6 % (1.5-5.0); GRAN # 8.21 (1.4-6.5); HEMOGLOBIN 9.5 g/dL (14.0-18.0); LYMPH # 1.6 (1.2-3.4); LYMPH % 13.9 % (22.0-35.0); MEAN CELL VOLUME 87.4 fl (80.0-105.0); MEAN CORPUSCULAR HEMOGLOBIN 27.9 pg (25.0-35.0); MONO # 1.1 (0.1-0.6); MONO % 9.4 % (1.0-6.0); RBC 3.4 10^6/uL (3.5-6.1); RED CELL DISTRIBUTION WIDTH 15.7 % (11.5-14.5); WHITE BLOOD COUNT 11.3 10^3/ul (4.5-11.0)
[2017-09-01 07:22] LABS: INR 1.37 (0.93-1.08); PARTIAL THROMBOPLASTIN TIME 66.4 Seconds (25.1-36.5); PROTHROMBIN TIME 15.9 SECONDS (9.4-12.5)
[2017-09-01 07:25] LABS: ALB/GLOB RATIO 0.8 (1.1-1.8); ALBUMIN 2.8 g/dL (3.0-4.8); BILIRUBIN,DIRECT 0.4 mg/dL (0.0-0.4); CALCIUM 7.8 mg/dL (8.4-10.5); MAGNESIUM 1.7 mg/dL (1.7-2.2)
[2017-09-01] MEDS ORDERED: Meropenem 500 MG in Sodium Chloride 0.9% 50 ML IVPB SCH (10:00)
[2017-09-01] MEDS: POLYETHYLENE GLYCOL 3350 17 GM/Dose PACKET PO SCH ×2 (10:26→18:28)
--- NOTE | 2017-09-01 18:22 | CP.PCM.CON ---
History of Present Illness - History of Present Illness History of Present Illness: 66 year old male with PMH of ESRD on HD, history of CVA, HTN, cataracts, DM was initially admitted in [facility] for right foot infection and was found to have gangrene. He had amputation done and is now in the [facility] for continued medical therapy and physical rehab. Infectious Diseases consult is requested to continue his antibiotics. He is currently afebrile, not in distress, no headache or dizziness, no chest pain, no SOB, no cough or colds, no sore throat , no abdominal pain, no diarrhea, no dysuria. Review of Systems - Review of Systems All systems: reviewed and no additional remarkable complaints except (as per HPI ) Past Patient History - Infectious Disease Hx of Infectious Diseases: None - Tetanus Immunizations Tetanus Immunization: Unknown - Past Social History Smoking Status: Never Smoked - CARDIAC Hx Cardiac Disorders: Yes Hx Hypertension: Yes - PULMONARY Hx Respiratory Disorders: Yes Hx Pneumonia: Yes - NEUROLOGICAL Hx Neurological Disorder: Yes HX Cerebrovascular Accident: Yes (as per pt in 07/2017) Hx Paralysis: No - HEENT Hx HEENT Problems: Yes Hx Cataracts: Yes - RENAL Hx Chronic Kidney Disease: Yes Hx Dialysis: Yes Date of Last Dialysis Treatment: 08/23/17 Hx Renal Failure: Yes (on HD (M/W/F)) - ENDOCRINE/METABOLIC Hx Endocrine Disorders: Yes Hx Diabetes Mellitus Type 2: Yes - HEMATOLOGICAL/ONCOLOGICAL Hx Blood Disorders: Yes Hx Blood Transfusions: Yes Hx Blood Transfusion Reaction: No - INTEGUMENTARY Hx Dermatological Problems: No - MUSCULOSKELETAL/RHEUMATOLOGICAL Hx Falls: No - GASTROINTESTINAL Hx Gastrointestinal Disorders: No - GENITOURINARY/GYNECOLOGICAL Hx Genitourinary Disorders: Yes (ESRD ON HD) Hx Reproductive Disorders: No - PSYCHIATRIC Hx Emotional Abuse: No Hx Physical Abuse: No Hx Substance Use: No - SURGICAL HISTORY Hx Cataract Extraction: Yes Other/Comment: DIANA AV Fistula - ANESTHESIA Hx Anesthesia: Yes Hx Anesthesia Reactions: No Hx Malignant Hyperthermia: No Meds Allergies/Adverse Reactions: Allergies Allergy/AdvReac Type Severity Reaction Status Date / Time No Known Allergies Allergy Verified 08/31/17 22:02 - Medications Medications: Current Medications Acetaminophen (Tylenol 325mg Tab) 650 mg PO Q6H PRN; Protocol PRN Reason: TEMP>=99.5F Acetaminophen (Tylenol 325mg Tab) 650 mg PO Q4H PRN; Protocol PRN Reason: mild pain 1-3 Aspirin (Ecotrin) 81 mg PO 0800 [facility] PRN Reason: Protocol Atorvastatin Calcium (Lipitor) 80 mg PO DIN [facility] PRN Reason: Protocol Calcium Acetate (Phoslo) 1,334 mg PO TID [facility] Cinacalcet (Sensipar) 30 mg PO DAILY [facility] PRN Reason: Protocol Diphenhydramine HCl (Benadryl) 25 mg PO HS PRN; Protocol PRN Reason: Insomnia Docusate Sodium (Colace) 100 mg PO TID [facility] PRN Reason: Protocol Duloxetine HCl (Cymbalta) 60 mg PO DAILY [facility] PRN Reason: Protocol Ergocalciferol (Drisdol 50,000 Intl Units Cap) 1 cap PO Q7D [facility] PRN Reason: Protocol Folic Acid (Folic Acid) 5 mg PO DAILY [facility] PRN Reason: Protocol Heparin Sodium/Sodium Chloride (Heparin 27598 Units/250ml 1/2 Normal Saline) 25 ,000 units in 250 mls @ 20 mls/hr IV .[id number] PRN; Protocol PRN Reason: ADJUST RATE PER PROTOCOL Insulin Human Regular (Humulin R Med) 0 units SC ACHS [facility] PRN Reason: Protocol Last Admin: 09/01/17 06:40 Dose: Not Given Losartan Potassium (Cozaar) 100 mg PO DAILY [facility] PRN Reason: Protocol Oxycodone/Acetaminophen (Percocet 5/325 Mg Tab) 2 tab PO Q4H PRN; Protocol PRN Reason: severe pain Stop: 09/03/17 20:32 Last Admin: 09/01/17 05:51 Dose: 2 tab Pantoprazole Sodium (Protonix Ec Tab) 20 mg PO 0600,1600 [facility] PRN Reason: Protocol Last Admin: 09/01/17 05:51 Dose: 20 mg Sennosides (Senokot Tab) 17.2 mg PO HS [facility] PRN Reason: Protocol Last Admin: 08/31/17 22:09 Dose: Not Given Physical Exam - Constitutional Appears: Chronically Ill - Head Exam Head Exam: NORMAL INSPECTION - ENT Exam ENT Exam: Mucous Membranes Moist - Neck Exam Neck exam: Negative for: Meningismus - Respiratory Exam Respiratory Exam: Decreased Breath Sounds - Cardiovascular Exam Cardiovascular Exam: +S1, +S2 - GI/Abdominal Exam GI & Abdominal Exam: Soft. absent: Tenderness - Extremities Exam Additional comments: right foot with dressings in place Results - Vital Signs Recent Vital Signs: Last Vital Signs Temp 98.1 F 08/31/17 22:04 Pulse 72 08/31/17 22:04 Resp 18 08/31/17 22:04 BP 151/73 H 08/31/17 22:04 Pulse Ox 99 08/31/17 19:26 - Labs Result Diagrams: 09/01/17 06:30 09/01/17 06:30 Labs: Laboratory Results - last 24 hr 08/31/17 08/31/17 09/01/17 21:45 22:24 05:19 WBC RBC Hgb Hct MCV MCH MCHC RDW Plt Count MPV Gran % Lymph % (Auto) [place] % (Auto) Eos % (Auto) Baso % (Auto) Gran # Lymph # (Auto) [place] # (Auto) Eos # (Auto) Baso # (Auto) PT INR APTT 92.2 H Sodium Potassium Chloride Carbon Dioxide Anion Gap BUN Creatinine Est GFR ( Amer) Est GFR (Non-Af Amer) POC Glucose (mg/dL) 148 H 129 H Random Glucose Calcium Phosphorus Magnesium Total Bilirubin Direct Bilirubin AST ALT Alkaline Phosphatase Total Protein Albumin Globulin Albumin/Globulin Ratio Triglycerides Cholesterol LDL Cholesterol Direct HDL Cholesterol 09/01/17 09/01/17 09/01/17 06:30 06:30 06:30 WBC 11.3 H RBC 3.40 L Hgb 9.5 L Hct 29.7 L MCV 87.4 MCH 27.9 MCHC 32.0 RDW 15.7 H Plt Count 270 MPV 10.0 Gran % 73.0 H Lymph % (Auto) 13.9 L [place]field % (Auto) 9.4 H Eos % (Auto) 3.6 Baso % (Auto) 0.1 Gran # 8.21 H Lymph # (Auto) 1.6 [place]field # (Auto) 1.1 H Eos # (Auto) 0.4 Baso # (Auto) 0.01 PT 15.9 H INR 1.37 H APTT 66.4 H Sodium 138 Potassium 3.6 Chloride 99 Carbon Dioxide 27 Anion Gap 15 BUN 23 H Creatinine 5.8 H Est GFR ( Amer) 12 Est GFR (Non-Af Amer) 10 POC Glucose (mg/dL) Random Glucose 113 H Calcium 7.8 L Phosphorus 1.7 L Magnesium 1.7 Total Bilirubin 0.4 Direct Bilirubin 0.4 AST 18 ALT 25 Alkaline Phosphatase 109 Total Protein 6.1 Albumin 2.8 L Globulin 3.3 Albumin/Globulin Ratio 0.8 L Triglycerides 103 Cholesterol 88 L LDL Cholesterol Direct 41 HDL Cholesterol 28 L Assessment & Plan - Assessment and Plan (Free Text) Plan: Assessment Consider right foot skin and skin structure infection, severe, R/O osteomyelitis , growing Stenotrophomonas, S/P right 5th toe amputation and 5th metatarsal partial amputation POD #2, growing Stenotrophomonas and E. faecalis ESRD on HD history of CVA HTN cataracts DM Plan continue Merrem and add intermittent Vanco IV; follow up OR pathology will monitor clinically
[2017-09-01] MEDS: Meropenem 500 MG in Sodium Chloride 0.9% 50 ML IVPB SCH (18:27)
--- NOTE | 2017-09-01 20:53 | CP.PCM.CON ---
History of Present Illness - History of Present Illness History of Present Illness: Podiatry Consult Note - Dr. Schneider 66M PMHx IDDM, HTN, ESRD on HD (MWF), CVA, cataracts seen and evaluated in TCU POD#2 right 5th digit amputation with partial metatarsal resection. Patient trasnferred to TCU for continued physical therapy. Patient seen s/p hemodialysis , admits to feeling lethargic currently. No acute events overnight. Reports soreness to amputation site and occasional sharp pains to 4th digit, well- controlled. Patient states he worked with physical therapy and has been ambulating WBAT to right heel with the assistance of standard walker without any issues. Offers no other pedal complaints. Denies N/V/F/D/C/SOB. Review of Systems - Review of Systems All systems: reviewed and no additional remarkable complaints except (as per HPI ) Past Patient History - Infectious Disease Hx of Infectious Diseases: None - Tetanus Immunizations Tetanus Immunization: Unknown - Past Social History Smoking Status: Never Smoked - CARDIAC Hx Cardiac Disorders: Yes Hx Hypertension: Yes - PULMONARY Hx Respiratory Disorders: Yes Hx Pneumonia: Yes - NEUROLOGICAL Hx Neurological Disorder: Yes HX Cerebrovascular Accident: Yes (as per pt in 07/2017) Hx Paralysis: No - HEENT Hx HEENT Problems: Yes Hx Cataracts: Yes - RENAL Hx Chronic Kidney Disease: Yes Hx Dialysis: Yes Date of Last Dialysis Treatment: 08/23/17 Hx Renal Failure: Yes (on HD (M/W/F)) - ENDOCRINE/METABOLIC Hx Endocrine Disorders: Yes Hx Diabetes Mellitus Type 2: Yes - HEMATOLOGICAL/ONCOLOGICAL Hx Blood Disorders: Yes Hx Blood Transfusions: Yes Hx Blood Transfusion Reaction: No - INTEGUMENTARY Hx Dermatological Problems: No - MUSCULOSKELETAL/RHEUMATOLOGICAL Hx Falls: No - GASTROINTESTINAL Hx Gastrointestinal Disorders: No - GENITOURINARY/GYNECOLOGICAL Hx Genitourinary Disorders: Yes (ESRD ON HD) Hx Reproductive Disorders: No - PSYCHIATRIC Hx Emotional Abuse: No Hx Physical Abuse: No Hx Substance Use: No - SURGICAL HISTORY Hx Cataract Extraction: Yes Other/Comment: DIANA AV Fistula - ANESTHESIA Hx Anesthesia: Yes Hx Anesthesia Reactions: No Hx Malignant Hyperthermia: No Meds Allergies/Adverse Reactions: Allergies Allergy/AdvReac Type Severity Reaction Status Date / Time No Known Allergies Allergy Verified 08/31/17 22:02 - Medications Medications: Current Medications Acetaminophen (Tylenol 325mg Tab) 650 mg PO Q6H PRN; Protocol PRN Reason: TEMP>=99.5F Acetaminophen (Tylenol 325mg Tab) 650 mg PO Q4H PRN; Protocol PRN Reason: mild pain 1-3 Aspirin (Ecotrin) 81 mg PO 0800 [facility] PRN Reason: Protocol Last Admin: 09/01/17 09:14 Dose: 81 mg Atorvastatin Calcium (Lipitor) 40 mg PO DIN [facility] PRN Reason: Protocol Last Admin: 09/01/17 18:28 Dose: 40 mg Calcium Acetate (Phoslo) 667 mg PO TID [facility] Last Admin: 09/01/17 18:29 Dose: 667 mg Cinacalcet (Sensipar) 30 mg PO DAILY [facility] PRN Reason: Protocol Last Admin: 09/01/17 09:13 Dose: 30 mg Diphenhydramine HCl (Benadryl) 25 mg PO HS PRN; Protocol PRN Reason: Insomnia Docusate Sodium (Colace) 100 mg PO TID [facility] PRN Reason: Protocol Last Admin: 09/01/17 18:27 Dose: 100 mg Duloxetine HCl (Cymbalta) 60 mg PO DAILY [facility] PRN Reason: Protocol Last Admin: 09/01/17 09:14 Dose: 60 mg Ergocalciferol (Drisdol 50,000 Intl Units Cap) 1 cap PO Q7D [facility] PRN Reason: Protocol Folic Acid (Folic Acid) 5 mg PO DAILY [facility] PRN Reason: Protocol Last Admin: 09/01/17 09:14 Dose: 5 mg Heparin Sodium/Sodium Chloride (Heparin 66837 Units/250ml 1/2 Normal Saline) 25 ,000 units in 250 mls @ 20 mls/hr IV .[id number] PRN; Protocol PRN Reason: ADJUST RATE PER PROTOCOL Meropenem 500 mg/ Sodium (Chloride) 50 mls @ 100 mls/hr IVPB 1800 [facility] PRN Reason: Protocol Last Admin: 09/01/17 18:27 Dose: 100 mls/hr Vancomycin HCl (Vancomycin 500mg In Ns) 500 mg in 100 mls @ 200 mls/hr IVPB MWF [facility] PRN Reason: Protocol Insulin Human Regular (Humulin R Med) 0 units SC ACHS [facility] PRN Reason: Protocol Last Admin: 09/01/17 18:28 Dose: Not Given Losartan Potassium (Cozaar) 100 mg PO DAILY [facility] PRN Reason: Protocol Last Admin: 09/01/17 09:13 Dose: 100 mg Oxycodone/Acetaminophen (Percocet 5/325 Mg Tab) 2 tab PO Q4H PRN; Protocol PRN Reason: severe pain Stop: 09/03/17 20:32 Last Admin: 09/01/17 12:12 Dose: 1 tab Pantoprazole Sodium (Protonix Ec Tab) 20 mg PO 0600,1600 [facility] PRN Reason: Protocol Last Admin: 09/01/17 18:29 Dose: 20 mg Polyethylene Glycol (Miralax) 17 gm PO BID [facility] Last Admin: 09/01/17 18:28 Dose: Not Given Sennosides (Senokot Tab) 17.2 mg PO HS [facility] PRN Reason: Protocol Last Admin: 08/31/17 22:09 Dose: Not Given Physical Exam - Constitutional Appears: Well, Non-toxic, No Acute Distress - Extremities Exam Additional comments: RLE focused physical exam: VASC: DP pulses palpable 2/4. PT pulses weakly palpable 1/4. CFT unable to assess digits 1-4. Temperature gradient warm to warm. Nonpitting edema noted to forefoot, +1 pitting edema noted to right leg. NEURO: Gross sensation diminished. DERM: 5th digit amputation surgical wound with 1 retention suture left intact; wound appears to have a 100% granular base; absent maceration during this examination; skin erosion at dorsal aspect of forefoot has extended distally into dorsum of 4th digit; antibiotic beads present within surgical wound 4th digit appears dusky in color with developing necrosis. Digits 1-3 color WNL at present with normal skin turgor. Interspaces 1-3 remain macerated. ORTHO: 5th digit amputation. Pain on palpation 4th digit. No pain on palpation digits 1-3. - Neurological Exam Neurological exam: Alert, Oriented x3 - Psychiatric Exam Psychiatric exam: Normal Affect, Normal Mood Results - Vital Signs Recent Vital Signs: Last Vital Signs Temp 98 F 09/01/17 18:30 Pulse 68 09/01/17 18:30 Resp 18 09/01/17 18:30 BP 109/53 L 09/01/17 18:30 Pulse Ox 100 09/01/17 18:30 - Labs Result Diagrams: 09/01/17 06:30 09/01/17 06:30 Labs: Laboratory Results - last 24 hr 08/31/17 08/31/17 09/01/17 21:45 22:24 05:19 WBC RBC Hgb Hct MCV MCH MCHC RDW Plt Count MPV Gran % Lymph % (Auto) [place] % (Auto) Eos % (Auto) Baso % (Auto) Gran # Lymph # (Auto) [place] # (Auto) Eos # (Auto) Baso # (Auto) PT INR APTT 92.2 H Sodium Potassium Chloride Carbon Dioxide Anion Gap BUN Creatinine Est GFR ( Amer) Est GFR (Non-Af Amer) POC Glucose (mg/dL) 148 H 129 H Random Glucose Hemoglobin A1c Calcium Phosphorus Magnesium Total Bilirubin Direct Bilirubin AST ALT Alkaline Phosphatase Total Protein Albumin Globulin Albumin/Globulin Ratio Triglycerides Cholesterol LDL Cholesterol Direct HDL Cholesterol Prostate Specific Ag 25-OH Vitamin D Total 09/01/17 09/01/17 09/01/17 06:30 06:30 06:30 WBC 11.3 H RBC 3.40 L Hgb 9.5 L Hct 29.7 L MCV 87.4 MCH 27.9 MCHC 32.0 RDW 15.7 H Plt Count 270 MPV 10.0 Gran % 73.0 H Lymph % (Auto) 13.9 L [place] % (Auto) 9.4 H Eos % (Auto) 3.6 Baso % (Auto) 0.1 Gran # 8.21 H Lymph # (Auto) 1.6 [place] # (Auto) 1.1 H Eos # (Auto) 0.4 Baso # (Auto) 0.01 PT 15.9 H INR 1.37 H APTT 66.4 H Sodium 138 Potassium 3.6 Chloride 99 Carbon Dioxide 27 Anion Gap 15 BUN 23 H Creatinine 5.8 H Est GFR ( Amer) 12 Est GFR (Non-Af Amer) 10 POC Glucose (mg/dL) Random Glucose 113 H Hemoglobin A1c Calcium 7.8 L Phosphorus 1.7 L Magnesium 1.7 Total Bilirubin 0.4 Direct Bilirubin 0.4 AST 18 ALT 25 Alkaline Phosphatase 109 Total Protein 6.1 Albumin 2.8 L Globulin 3.3 Albumin/Globulin Ratio 0.8 L Triglycerides 103 Cholesterol 88 L LDL Cholesterol Direct 41 HDL Cholesterol 28 L Prostate Specific Ag 25-OH Vitamin D Total 09/01/17 09/01/17 09/01/17 06:30 06:30 06:30 WBC RBC Hgb Hct MCV MCH MCHC RDW Plt Count MPV Gran % Lymph % (Auto) [place] % (Auto) Eos % (Auto) Baso % (Auto) Gran # Lymph # (Auto) [place] # (Auto) Eos # (Auto) Baso # (Auto) PT INR APTT Sodium Potassium Chloride Carbon Dioxide Anion Gap BUN Creatinine Est GFR ( Amer) Est GFR (Non-Af Amer) POC Glucose (mg/dL) Random Glucose Hemoglobin A1c 5.7 Calcium Phosphorus Magnesium Total Bilirubin Direct Bilirubin AST ALT Alkaline Phosphatase Total Protein Albumin Globulin Albumin/Globulin Ratio Triglycerides Cholesterol LDL Cholesterol Direct HDL Cholesterol Prostate Specific Ag 0.5 25-OH Vitamin D Total 28.1 L 09/01/17 09/01/17 09/01/17 10:58 12:30 18:13 WBC RBC Hgb Hct MCV MCH MCHC RDW Plt Count MPV Gran % Lymph % (Auto) [place] % (Auto) Eos % (Auto) Baso % (Auto) Gran # Lymph # (Auto) [place] # (Auto) Eos # (Auto) Baso # (Auto) PT INR APTT 74.0 H Sodium Potassium Chloride Carbon Dioxide Anion Gap BUN Creatinine Est GFR ( Amer) Est GFR (Non-Af Amer) POC Glucose (mg/dL) 170 H 140 H Random Glucose Hemoglobin A1c Calcium Phosphorus Magnesium Total Bilirubin Direct Bilirubin AST ALT Alkaline Phosphatase Total Protein Albumin Globulin Albumin/Globulin Ratio Triglycerides Cholesterol LDL Cholesterol Direct HDL Cholesterol Prostate Specific Ag 25-OH Vitamin D Total Assessment & Plan - Assessment and Plan (Free Text) Assessment: 66 year old male with 1) right 5th digit gangrene r/o osteomyelitis, POD#2 Right 5th digit amputation with partial metatarsal resection, 2) right 4th digit ischemia and developing gangrene Plan: Patient seen and evaluated Discussed with attending, Dr. Schneider Afebrile, WBC 11.3 (increased - likely reactive) Venous duplex report: Negative for DVT Arterial duplex report: Limited study due to calcified vessels; right SFA occlusive disease; right distal waveforms are severely blunted -s/p vascular intervention 08/27/17 Right foot MRI - limited interpretation R foot XR (08/30/17): s/p amputation 5th digit with resection of distal 5th metatarsal R 5th digit WCx (08/24/17) reveals growth of stenotrophomonas maltophilia F/u intra-op specimens: 1) Right 5th digit wound culture - stenotrophomonas maltophilia (light growth ); enterococcus faecalis 2) Right 5th digit - pathology pending 3) 5th metatarsal head, clean margins - pathology pending 4th digit developing ischemic/necrotic changes, will continue to monitor Surgical site cleansed with sterile saline and dressed with betadine-soaked adaptic, DSD Patient to be PWB to heel only in surgical shoe with the assistance of walker -Continue PT/OT No ice or elevation to RLE Continue abx per ID - Merrem and add intermittent Vanco IV; follow up OR pathology Pain control - Tylenol 650mg PO, Percocet 1-2 tabs PO Patient stable for TCU from podiatry standpoint; patient may need to be readmitted at a later date for subsequent sx Podiatry will continue to follow patient while in house
--- NOTE | 2017-09-01 21:22 | HP ---
DATE OF EXAM: LOCATION: The patient is seen in room 315, bed 1. HISTORY OF PRESENT ILLNESS: The patient is seen lying in the bed. Patient is alert, awake, responsive. The patient has been transferred from acute care to Transitional Care Unit for further management and continuation of the IV antibiotic and wound care. The patient is now admitted to Transitional Care Unit. For further details of the patient's past medical history and other details, please refer to the history and physical examination dictated on 08/25/2017 and discharge summary dictated on 08/31/2017. PHYSICAL EXAMINATION: GENERAL: The patient is seen lying in the bed in room 315, bed 1. VITAL SIGNS: T-max is 98.1, pulse 72, blood pressure 151/73, respirations 18, O2 sat 99%. HEENT: Head examination normocephalic, atraumatic. HEENT examination shows pinkish pale conjunctivae. Anicteric sclerae. No oropharyngeal lesion. No neck rigidity. CHEST: Kyphosis. LUNGS: Shows decreased breath sound at the left base. No rales, crackles or wheezing. CARDIOVASCULAR: S1 and S2. Regular rhythm. Positive systolic murmur, right second intercostal space left sternal border. ABDOMEN: Obese, protuberant. Abdomen is distended, but positive bowel sound. No hepatosplenomegaly was palpable. EXTREMITIES: Left upper extremity AV fistula noted. Positive thrill noted. Left extremity shows positive SCDs, positive lymphedema of the bilateral lower extremity noted, right more than the left. GENITALIA: Male. RECTAL: Deferred. MUSCULOSKELETAL: Shows a body mass index of 43 today. NEUROLOGIC: The patient is alert, awake, oriented x3. Cranial nerves II through XII grossly intact. Gait examination not tested. DIAGNOSTICS: On 09/01/2017, WBC 11.3, hemoglobin/hematocrit 9.5/29.7, platelet 270, granulocytes 73. PT 15.9, INR 1.37, PTT 66.4. Sodium 138, potassium 3.6, chloride 99, CO2 of 27, anion gap 15, BUN 23, creatinine 5.8, GFR 12, glucose 113, calcium is 7.8, phosphorus 1.7, magnesium 1.7, albumin 2.8. Cholesterol is 88, triglyceride 103, LDL 41, HDL 28. Right foot fifth toe wound cultures are growing Enterococcus faecalis, which is vancomycin sensitive and sensitive to Zyvox, penicillin, Tygacil, and vancomycin. The patient received 2 units of PRBC on hemodialysis yesterday. IMPRESSION AND PLAN: 1. Deconditioning. 2. Gait dysfunction. 3. Right foot fifth digit metatarsal amputation with antibiotic-eluting beads and amputation of the right foot fifth toe. 4. Hypertension. 5. Bilateral lower extremity venous stasis and lymphedema. 6. Leukocytosis with granulocytosis. 7. Normocytic anemia with decreasing hemoglobin/hematocrit. 8. Status post packed red blood cell transfusion x2. 9. Elevated erythrocyte sedimentation rate of greater than 114. 10. Coumadin requiring for acute cerebellar infarct. 11. Hypophosphatemia. 12. End-stage renal disease, hemodialysis dependent. 13. Insulin-requiring diabetes mellitus with hyperglycemia. 14. Decreased HDL of 28. 15. Right foot fourth digit ischemia. 16. Peripheral vascular disease. 17. Insomnia. 18. Constipation. 19. Diabetic neuropathy. 20. Hypovitaminosis D. 21. Dyslipidemia. 22. Right foot pain syndrome. 23. Secondary hyperparathyroidism. Plan at this time, the patient has been ordered repeat labs. Hemoglobin A1c, vitamin D is pending. CURRENT CONSULTATIONS: 1. Infectious Disease. 2. Podiatry. 3. Nephrology. 4. Cardiology. CURRENT MEDICATIONS: Benadryl 25 mg h.s. p.r.n. for insomnia, Colace 100 mg three times a day, Cozaar 100 mg daily, Cymbalta 60 mg daily, Drisdol 50,000 units weekly, Ecotrin 81 mg daily, folic acid 5 mg daily, heparin drip titration protocol, Humulin R medium-dose sliding scale coverage a.c. and h.s, Lipitor decreased to 40 mg daily, meropenem 500 mg IV q. 12 by , MiraLax 17 g twice a day, Percocet 5/325 two tablets q.4h. p.r.n. for pain, PhosLo decreased to 667 mg three times a day, Protonix 40 mg daily, Senokot 17.2 mg h.s., Sensipar 30 mg daily, Tylenol 650 mg p.o. and suppository q.4h. p.r.n. The patient has been on renal diet. The patient has been ordered fingerstick blood sugar a.c. and h.s., TEDs, SCDs and VT device to the left side noted. Ordered physical therapy, occupational therapy, out of bed to chair ordered. At present, I had a lengthy discussion with the patient regarding possibilities of long-term antibiotic. The patient has clearly stated that he would prefer to get IV antibiotic on dialysis if possible three times a week as the patient comes to the [facility] for dialysis three times a week and the patient does not prefer and wishes to go to subacute rehab. For this matter, I have referred the patient's case to social services manager and case management for discharge planning. The patient wished to have the IV antibiotic, if needed long-term IV antibiotic, which he prefers to have it done on hemodialysis three times a week. ADDENDUM TO THE IMPRESSION: Stenotrophomonas maltophilia and Enterococcus faecalis. Right foot fifth toe and digit Stenotrophomonas maltophilia and Enterococcus faecalis. Right foot fifth toe diabetic foot ulceration and gangrene versus questionable osteomyelitis. Plan at this time as dictated above. Dictated and electronically signed, not read. Steve Rincon MD
[2017-09-01] MEDS ORDERED: Heparin25000 units/250ml 1/2NS 25,000 UNITS/250 ML BAG IV PRN (23:14)
--- NOTE | 2017-09-02 03:04 | CON ---
DATE: 09/01/2017 REASON FOR CONSULTATION: Hypocalcemia, hypophosphatemia. HISTORY OF PRESENT ILLNESS: A 66-year-old male known to me from outpatient hemodialysis, recent evaluation in the hospital. Patient was admitted with gangrene of his right toe. Patient underwent amputation of his toe. He is currently in the Transitional Care Unit for rehabilitation and completion of antibiotics. His calcium was found to be 7.8 this morning and his phosphorus is 1.7. Hence consultation is requested. PAST MEDICAL AND SURGICAL HISTORY: NIDDM, hypertension, morbid obesity, CVA, CHF, CAD, ESRD, recent CVA, peripheral vascular disease, amputation of the toe, anemia of chronic kidney disease, secondary hyperparathyroidism. FAMILY HISTORY: Hypertension. SOCIAL HISTORY: No smoking, no alcohol use, no IV drug abuse. ALLERGIES: NO KNOWN DRUG ALLERGIES. CURRENT MEDICATIONS: Benadryl, Colace, Cozaar 100, Cymbalta, Drisdol, Ecotrin, folic acid, heparin, Lipitor, meropenem, MiraLax, Percocet, PhosLo, Protonix, Senokot, Sensipar 30, Tylenol. ASSESSMENT: 1. Hypophosphatemia, likely secondary to decreased p.o. intake in the hospital. 2. Hypocalcemia, likely related to Sensipar therapy. 3. Non-insulin dependent diabetes mellitus. 4. Hypertension. 5. End-stage renal disease. 6. Peripheral vascular disease. 7. Recent cerebrovascular accident. 8. Recent toe amputation. PLAN: 1. Agree with holding PhosLo for the time being. 2. Check intact PTH. 3. Corrected calcium is in the normal range, hence continue Sensipar for the time being. 4. Monitor fingersticks. 5. Dialysis today. 6. Continue antibiotics. 7. Maintain euglycemia. Svetlana Hillman MD
[2017-09-02] MEDS: Pantoprazole 20 mg EC Tab PO SCH ×2 (05:48→16:30)
[2017-09-02] MEDS: Insulin Reg-MEDIUM-Coverage SC SCH ×4 (06:32→21:20)
[2017-09-02 07:36] LABS: BASO # 0.03 K/mm3 (0.0-2.0); BASO % 0.3 % (0.0-3.0); EOS # 0.4 (0.0-0.7); EOS % 3.7 % (1.5-5.0); GRAN # 8.19 (1.4-6.5); GRAN % 71.2 % (50.0-68.0); HEMOGLOBIN 11.1 g/dL (14.0-18.0); LYMPH # 1.7 (1.2-3.4); LYMPH % 14.4 % (22.0-35.0); MEAN CELL VOLUME 86.9 fl (80.0-105.0); MEAN CORPUSCULAR HGB CONC 32.2 g/dl (31.0-37.0); MONO # 1.2 (0.1-0.6); MONO % 10.4 % (1.0-6.0); RBC 3.97 10^6/uL (3.5-6.1); RED CELL DISTRIBUTION WIDTH 15.8 % (11.5-14.5); WHITE BLOOD COUNT 11.5 10^3/ul (4.5-11.0)
[2017-09-02 07:53] LABS: ALBUMIN 3.5 g/dL (3.0-4.8); BILIRUBIN,DIRECT 0.5 mg/dL (0.0-0.4); CALCIUM 9.1 mg/dL (8.4-10.5)
[2017-09-02] MEDS: Oxycodone/Acetaminophen 5/325 mg Tab PO PRN ×3 (08:07→22:25)
[2017-09-02] MEDS: POLYETHYLENE GLYCOL 3350 17 GM/Dose PACKET PO SCH ×2 (09:37→17:34)
[2017-09-02 09:49] LABS: INR 1.14 (0.93-1.08); PARTIAL THROMBOPLASTIN TIME 38.5 Seconds (25.1-36.5); PROTHROMBIN TIME 13.1 SECONDS (9.4-12.5)
--- NOTE | 2017-09-02 11:01 | CP.PCM.PN ---
Subjective - Date & Time of Evaluation Date of Evaluation: 09/02/17 Time of Evaluation: 10:15 - Subjective Subjective: Comfortable on a chair, not much pain on the right foot, no fevers, no diarrhea. Objective - Vital Signs/Intake and Output Vital Signs (last 24 hours): Temp Pulse Resp BP Pulse Ox 98.7 F 68 18 146/62 96 09/01/17 10:00 09/01/17 10:00 09/01/17 10:00 09/01/17 10:00 09/01/17 10:00 - Medications Medications: Current Medications Acetaminophen (Tylenol 325mg Tab) 650 mg PO Q6H PRN; Protocol PRN Reason: TEMP>=99.5F Acetaminophen (Tylenol 325mg Tab) 650 mg PO Q4H PRN; Protocol PRN Reason: mild pain 1-3 Aspirin (Ecotrin) 81 mg PO 0800 [facility] PRN Reason: Protocol Last Admin: 09/01/17 09:14 Dose: 81 mg Atorvastatin Calcium (Lipitor) 40 mg PO DIN [facility] PRN Reason: Protocol Calcium Acetate (Phoslo) 667 mg PO TID [facility] Last Admin: 09/01/17 14:27 Dose: Not Given Cinacalcet (Sensipar) 30 mg PO DAILY [facility] PRN Reason: Protocol Last Admin: 09/01/17 09:13 Dose: 30 mg Diphenhydramine HCl (Benadryl) 25 mg PO HS PRN; Protocol PRN Reason: Insomnia Docusate Sodium (Colace) 100 mg PO TID [facility] PRN Reason: Protocol Last Admin: 09/01/17 14:25 Dose: 100 mg Duloxetine HCl (Cymbalta) 60 mg PO DAILY [facility] PRN Reason: Protocol Last Admin: 09/01/17 09:14 Dose: 60 mg Ergocalciferol (Drisdol 50,000 Intl Units Cap) 1 cap PO Q7D [facility] PRN Reason: Protocol Folic Acid (Folic Acid) 5 mg PO DAILY [facility] PRN Reason: Protocol Last Admin: 09/01/17 09:14 Dose: 5 mg Heparin Sodium/Sodium Chloride (Heparin 47414 Units/250ml 1/2 Normal Saline) 25 ,000 units in 250 mls @ 20 mls/hr IV .[id number] PRN; Protocol PRN Reason: ADJUST RATE PER PROTOCOL Meropenem 500 mg/ Sodium (Chloride) 50 mls @ 100 mls/hr IVPB 1800 [facility] PRN Reason: Protocol Vancomycin HCl (Vancomycin 500mg In Ns) 500 mg in 100 mls @ 200 mls/hr IVPB MWF [facility] PRN Reason: Protocol Insulin Human Regular (Humulin R Med) 0 units SC ACHS [facility] PRN Reason: Protocol Last Admin: 09/01/17 11:50 Dose: 1 units Losartan Potassium (Cozaar) 100 mg PO DAILY [facility] PRN Reason: Protocol Last Admin: 09/01/17 09:13 Dose: 100 mg Oxycodone/Acetaminophen (Percocet 5/325 Mg Tab) 2 tab PO Q4H PRN; Protocol PRN Reason: severe pain Stop: 09/03/17 20:32 Last Admin: 09/01/17 12:12 Dose: 1 tab Pantoprazole Sodium (Protonix Ec Tab) 20 mg PO 0600,1600 [facility] PRN Reason: Protocol Last Admin: 09/01/17 05:51 Dose: 20 mg Polyethylene Glycol (Miralax) 17 gm PO BID [facility] Last Admin: 09/01/17 10:26 Dose: 17 gm Sennosides (Senokot Tab) 17.2 mg PO HS [facility] PRN Reason: Protocol Last Admin: 08/31/17 22:09 Dose: Not Given - Labs Labs: 09/01/17 06:30 09/01/17 06:30 PT 15.9 SECONDS (9.4-12.5) H 09/01/17 06:30 INR 1.37 (0.93-1.08) H 09/01/17 06:30 APTT 74.0 Seconds (25.1-36.5) H 09/01/17 12:30 - Constitutional Appears: Non-toxic, Chronically Ill - Head Exam Head Exam: NORMAL INSPECTION - Neck Exam Neck Exam: absent: Meningismus - Respiratory Exam Respiratory Exam: Decreased Breath Sounds - Cardiovascular Exam Cardiovascular Exam: +S1, +S2 - GI/Abdominal Exam GI & Abdominal Exam: Soft. absent: Tenderness - Extremities Exam Additional comments: right foot with dressings in place Assessment and Plan - Assessment and Plan (Free Text) Plan: Assessment Consider right foot skin and skin structure infection, severe, R/O osteomyelitis , growing Stenotrophomonas, S/P right 5th toe amputation and 5th metatarsal partial amputation POD #3, growing Stenotrophomonas and E. faecalis ESRD on HD history of CVA HTN cataracts DM Plan continue Merrem and intermittent Vanco IV; follow up OR pathology will monitor clinically
[2017-09-02] MEDS: Heparin25000 units/250ml 1/2NS 25,000 UNITS/250 ML BAG IV PRN (11:44)
--- NOTE | 2017-09-02 11:52 | CP.PCM.PN ---
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 No acute events overnight. Reports soreness to amputation site and occasional sharp pains to 4th digit, well-controlled. Patient reports he continues to work wit physical therapy and has been ambulating WBAT to right heel with the assistance of standard walker without any issues. Offers no other pedal complaints. Denies N/V/F/D/C/SOB. Objective - Vital Signs/Intake and Output Vital Signs (last 24 hours): Temp Pulse Resp BP Pulse Ox 98 F 68 18 109/53 L 100 09/01/17 18:30 09/01/17 18:30 09/01/17 18:30 09/01/17 18:30 09/01/17 18:30 - Medications Medications: Current Medications Acetaminophen (Tylenol 325mg Tab) 650 mg PO Q6H PRN; Protocol PRN Reason: TEMP>=99.5F Acetaminophen (Tylenol 325mg Tab) 650 mg PO Q4H PRN; Protocol PRN Reason: mild pain 1-3 Aspirin (Ecotrin) 81 mg PO 0800 [facility] PRN Reason: Protocol Last Admin: 09/02/17 08:08 Dose: 81 mg Atorvastatin Calcium (Lipitor) 40 mg PO DIN [facility] PRN Reason: Protocol Last Admin: 09/01/17 18:28 Dose: 40 mg Calcium Acetate (Phoslo) 667 mg PO TID [facility] Last Admin: 09/01/17 18:29 Dose: 667 mg Cinacalcet (Sensipar) 30 mg PO DAILY [facility] PRN Reason: Protocol Last Admin: 09/02/17 09:39 Dose: 30 mg Diphenhydramine HCl (Benadryl) 25 mg PO HS PRN; Protocol PRN Reason: Insomnia Docusate Sodium (Colace) 100 mg PO TID [facility] PRN Reason: Protocol Last Admin: 09/02/17 09:36 Dose: 100 mg Duloxetine HCl (Cymbalta) 60 mg PO DAILY [facility] PRN Reason: Protocol Last Admin: 09/02/17 09:37 Dose: 60 mg Ergocalciferol (Drisdol 50,000 Intl Units Cap) 1 cap PO Q7D [facility] PRN Reason: Protocol Folic Acid (Folic Acid) 5 mg PO DAILY [facility] PRN Reason: Protocol Last Admin: 09/02/17 09:37 Dose: 5 mg Meropenem 500 mg/ Sodium (Chloride) 50 mls @ 100 mls/hr IVPB 1800 [facility] PRN Reason: Protocol Last Admin: 09/01/17 18:27 Dose: 100 mls/hr Vancomycin HCl (Vancomycin 500mg In Ns) 500 mg in 100 mls @ 200 mls/hr IVPB MWF [facility] PRN Reason: Protocol Heparin Sodium/Sodium Chloride (Heparin 71483 Units/250ml 1/2 Normal Saline) 25 ,000 units in 250 mls @ 21.073 mls/hr IV .[id number] PRN; Protocol; 18 UNITS/KG/HR PRN Reason: ADJUST RATE PER PROTOCOL Insulin Human Regular (Humulin R Med) 0 units SC ACHS [facility] PRN Reason: Protocol Last Admin: 09/02/17 06:32 Dose: Not Given Losartan Potassium (Cozaar) 100 mg PO DAILY [facility] PRN Reason: Protocol Last Admin: 09/02/17 09:37 Dose: 100 mg Oxycodone/Acetaminophen (Percocet 5/325 Mg Tab) 2 tab PO Q4H PRN; Protocol PRN Reason: severe pain Stop: 09/03/17 20:32 Last Admin: 09/02/17 08:07 Dose: 2 tab Pantoprazole Sodium (Protonix Ec Tab) 20 mg PO 0600,1600 [facility] PRN Reason: Protocol Last Admin: 09/02/17 05:48 Dose: 20 mg Polyethylene Glycol (Miralax) 17 gm PO BID [facility] Last Admin: 09/02/17 09:37 Dose: 17 gm Sennosides (Senokot Tab) 17.2 mg PO HS [facility] PRN Reason: Protocol Last Admin: 09/01/17 21:31 Dose: 17.2 mg - Labs Labs: 09/02/17 07:00 09/02/17 07:00 PT 13.1 SECONDS (9.4-12.5) H 09/02/17 07:00 INR 1.14 (0.93-1.08) H 09/02/17 07:00 APTT 38.5 Seconds (25.1-36.5) H 09/02/17 07:00 - Constitutional Appears: Well, Non-toxic, No Acute Distress - Extremities Exam Additional comments: RLE focused physical exam: VASC: DP pulses palpable 2/4. PT pulses weakly palpable 1/4. CFT unable to assess digits 1-4. Temperature gradient warm to warm. Nonpitting edema noted to forefoot, +1 pitting edema noted to right leg. NEURO: Gross sensation diminished. DERM: 5th digit amputation surgical wound with 1 retention suture left intact; wound appears to have a granular base with necrotic tissue centrally. Absent maceration during this examination; skin erosion with necrosis noted at dorsal aspect of forefoot has extended distally into dorsum of 4th digit, color of plantar foot appears WNL at the moment; antibiotic beads present within surgical wound 4th digit appears dusky in color with developing necrosis. Digits 1-3 color WNL at present with normal skin turgor. Interspaces 1-3 remain macerated. ORTHO: 5th digit amputation. Pain on palpation 4th digit. No pain on palpation digits 1-3. - Neurological Exam Neurological Exam: Alert, Awake, Oriented x3 - Psychiatric Exam Psychiatric exam: Normal Affect, Normal Mood Assessment and Plan - Assessment and Plan (Free Text) Assessment: 66 year old male with 1) right 5th digit gangrene r/o osteomyelitis, POD#3 Right 5th digit amputation with partial metatarsal resection, 2) right 4th digit ischemia and developing gangrene Plan: Patient seen and evaluated Discussed with attending, Dr. Schneider Afebrile, WBC 11.5 likely reactive Venous duplex report: Negative for DVT Arterial duplex report: Limited study due to calcified vessels; right SFA occlusive disease; right distal waveforms are severely blunted -s/p vascular intervention 08/27/17 Right foot MRI - limited interpretation R foot XR (08/30/17): s/p amputation 5th digit with resection of distal 5th metatarsal R 5th digit WCx (08/24/17) reveals growth of stenotrophomonas maltophilia F/u intra-op specimens: 1) Right 5th digit wound culture - stenotrophomonas maltophilia (light growth ); enterococcus faecalis 2) Right 5th digit - pathology pending 3) 5th metatarsal head, clean margins - pathology pending 4th digit developing ischemic/necrotic changes continues, will continue to monitor for demarcation Patient will most likely require additional surgical intervention Plan for surgery possible Wednesday for 4th digit amputation Surgical site cleansed with sterile saline and dressed with betadine-soaked adaptic, DSD Patient to be PWB to heel only in surgical shoe with the assistance of walker -Continue PT/OT No ice or elevation to RLE Continue abx per ID - Merrem and add intermittent Vanco IV; follow up OR pathology Pain control - Tylenol 650mg PO, Percocet 1-2 tabs PO Podiatry will continue to follow patient while in house
[2017-09-02] MEDS: Meropenem 500 MG in Sodium Chloride 0.9% 50 ML IVPB SCH (17:32)
--- NOTE | 2017-09-02 19:45 | PN ---
DATE: 09/02/2017 SUBJECTIVE: Patient is seen lying in bed. He is awake, he is alert, he is comfortable. He denies any pain. Denies any shortness of breath. PHYSICAL EXAMINATION: GENERAL: Obese elderly male, lying in bed. VITAL SIGNS: Blood pressure 109/53, heart rate 68, respiratory rate 18, temperature 98. HEENT: Normocephalic, atraumatic, positive pallor. NECK: Supple, no JVD. LUNGS: Bilateral equal air entry. No rales. EXTREMITIES: Dressing of the right foot. LABORATORY DATA: WBC 11.5, hemoglobin 11, hematocrit 35, platelets 313. Sodium 134, potassium 4.0, chloride 94, CO2 of 29, BUN 24, creatinine 5.8, glucose of 115, calcium 9.1, phosphorus 2.3, magnesium 2.0, albumin 3.5. ASSESSMENT: 1. Hypertension. 2. Noninsulin-dependent diabetes mellitus. 3. Peripheral arterial disease. 4. Gangrene of toes, status post amputation. 5. End-stage renal disease. 6. Anemia of chronic kidney disease. PLAN: 1. Continue antibiotics. 2. Dialysis tomorrow. 3. Continue physical therapy. 4. Monitor fingersticks. 5. Continue wound care. Svetlana Hillman MD
--- NOTE | 2017-09-03 00:07 | PN ---
DATE: 09/02/2017 SUBJECTIVE: Patient is seen in room 315, bed 1. Patient is out of bed to chair. Patient is alert, awake, responsive. Overnight nurse's notes were reviewed. Patient complained of some right foot pain for which patient has been taking Percocet without any adverse events. Overnight nurse's notes were reviewed. Patient was found to be alert, awake, oriented x3. Patient continued on the heparin drip, which was titrated according to the PT/PTT. No bleeding was noted by the patient and the contour grinder who have already evaluated the patient this morning. PHYSICAL EXAMINATION: VITAL SIGNS: T-max 98; pulse 68, 75; blood pressure 123/71, 118/56, 146/62; respiration 18; O2 sat 95%. Intake and output not noted. Patient's weight has been incorrectly noted as 370 pounds on 08/31, then corrected weight is noted 263 pounds and down to 258 pounds. HEENT: Head examination, normocephalic, atraumatic. HEENT examination shows pinkish conjunctivae. Anicteric sclerae. No oropharyngeal lesion. No neck rigidity. Questionable soft carotid bruit. CHEST: Kyphosis. LUNGS: Shows no rales, crackles or wheezing. CARDIOVASCULAR: Shows S1, S2, regular rhythm. Questionable soft systolic murmur left sternal border, right second intercostal space, left second intercostal space. ABDOMEN: Obese. Positive bowel sounds. No hepatosplenomegaly noted. No guarding. No rigidity. No rebound tenderness. EXTREMITIES: Show positive left upper extremity AV fistula. Lower extremity shows positive lymphedema and swelling of the right lower extremity as compared to the left. Positive dressing of the right foot. MUSCULOSKELETAL: Shows a body mass index of 42. NEUROLOGIC: The patient is alert, awake, oriented x3. Cranial nerves II through XII intact. Gait examination is not tested, but patient is on partial weightbearing on the right foot. DIAGNOSTICS: On 09/02, WBC 11.5, hemoglobin/hematocrit 11.1 and 34.5, platelet 313. Granulocytes 71, PTT 74, 38.5, 74 and 90. Sodium 134; potassium 4.0; chloride 94; CO2 29; anion gap 15; BUN 24; creatinine 5.8; GFR 12; glucose 115; fingerstick blood sugar 219, 150, 177, 140, 170; calcium 9.1; phosphorus 2.3; magnesium 2.0; alk phos 150. IMPRESSION AND PLAN: 1. Deconditioning. 2. Gait dysfunction. 3. Right foot fifth toe and fifth digit amputation and partial metatarsal resection, postoperative day 3. 4. Right foot fourth digit ischemia versus gangrene. 5. Right foot fifth toe Enterococcus faecalis and Stenotrophomonas maltophilia diabetic foot ulceration and gangrene and questionable osteomyelitis. 6. Right foot fifth toe ulceration and acute and extensive necrosis and acute osteomyelitis with proximal resection margin negative for osteomyelitis. 7. Severe atherosclerotic disease of the lower extremity. 8. Right foot fifth toe extensive necrosis with acute and chronic inflammation and ulceration. 9. Hypertension. 10. Morbid obesity with elevated body mass index of 42. 11. Leukocytosis with granulocytosis. 12. Normocytic anemia. 13. Status post packed red blood cell transfusion. 14. Insulin-requiring diabetes mellitus. 15. Hypovitaminosis D. 16. History of hyperlipidemia. 17. Mild hypophosphatemia. 18. Bilateral lower extremity lymphedema, right more than the left. 19. Peripheral vascular disease. 20. End-stage renal disease, hemodialysis dependent, three times a week via the left upper extremity AV fistula. 21. Constipation. 22. Insomnia. 23. Diabetic neuropathy. 24. Hyperlipidemia. 25. Right foot pain syndrome. Plan at this time, patient has been ordered serial labs. Patient's current consultations are Infectious Disease, Podiatry, Nephrology, Cardiology. CURRENT MEDICATIONS: 1. Benadryl 25 mg at bedtime p.r.n. 2. Colace 100 mg three times a day. 3. Cozaar 100 mg daily. 4. Cymbalta 60 mg daily. 5. Drisdol 50,000 minutes weekly. 6. Ecotrin 81 mg daily. 7. Folic acid 5 mg daily. 8. Heparin drip . 9. Regular insulin sliding scale coverage a.c. and at bedtime. 10. Lipitor 40 mg daily. 11. Meropenem 500 mg IV daily. 12. MiraLax 17 g twice a day. 13. Percocet 5/325 two tablets p.o. q. 4 hours p.r.n. 14. PhosLo 667 mg three times a day. 15. Protonix 40 mg daily. 16. Senokot 17.2 mg at bedtime. 17. Sensipar 30 mg daily. 18. Tylenol 650 mg q. 4 p.r.n. 19. Vancomycin 500 mg IV piggyback Wednesday, Wednesday, Wednesday on dialysis Patient has been updated about his condition, diagnosis, test results and recommendation by Podiatry. Podiatry is recommending regarding right foot fourth toe and digit ischemia versus early gangrene. The Podiatry is recommending surgical intervention on 09/06/2017. In the meantime, patient has been recommended partial weightbearing to the heel only for the right foot. Continue physical therapy, ambulation therapy. Patient has been updated and explained about all the details. Dictated and electronically signed, not read. Steve Rincon MD
[2017-09-03] MEDS: Heparin25000 units/250ml 1/2NS 25,000 UNITS/250 ML BAG IV PRN ×2 (04:45→21:15)
[2017-09-03] MEDS: Pantoprazole 20 mg EC Tab PO SCH ×2 (05:58→17:00)
[2017-09-03] MEDS: Insulin Reg-MEDIUM-Coverage SC SCH ×4 (07:00→22:00)
[2017-09-03] MEDS: Oxycodone/Acetaminophen 5/325 mg Tab PO PRN ×2 (07:20→21:13)
[2017-09-03 07:30] LABS: BASO # 0.03 K/mm3 (0.0-2.0); BASO % 0.2 % (0.0-3.0); EOS # 0.5 (0.0-0.7); EOS % 4.1 % (1.5-5.0); GRAN # 8.45 (1.4-6.5); GRAN % 69.8 % (50.0-68.0); HEMOGLOBIN 10.7 g/dL (14.0-18.0); LYMPH % 16.7 % (22.0-35.0); MEAN CELL VOLUME 86.3 fl (80.0-105.0); MEAN CORPUSCULAR HEMOGLOBIN 27.7 pg (25.0-35.0); MEAN CORPUSCULAR HGB CONC 32.1 g/dl (31.0-37.0); MEAN PLATELET VOLUME 9.8 fl (7.0-11.0); MONO # 1.1 (0.1-0.6); MONO % 9.2 % (1.0-6.0); RBC 3.86 10^6/uL (3.5-6.1); RED CELL DISTRIBUTION WIDTH 15.7 % (11.5-14.5); WHITE BLOOD COUNT 12.1 10^3/ul (4.5-11.0)
[2017-09-03 07:40] LABS: INR 1.1 (0.93-1.08); PROTHROMBIN TIME 12.7 SECONDS (9.4-12.5)
[2017-09-03 07:41] LABS: PARTIAL THROMBOPLASTIN TIME 97.3 Seconds (25.1-36.5)
[2017-09-03] MEDS ORDERED: Vancomycin 500mg in NS 500 MG/100 ML BAG IVPB SCH (10:00)
[2017-09-03] MEDS: POLYETHYLENE GLYCOL 3350 17 GM/Dose PACKET PO SCH ×2 (10:54→17:59)
--- NOTE | 2017-09-03 14:11 | PN ---
DATE: SUBJECTIVE: The patient is a 66-year-old male. He is in the Transitional Care Unit, room 327, bed 1. The patient is admitted to the Transitional Care Unit after amputation of his toe. He is a patient with long-standing diabetes mellitus. He had been treated for hypertension, diabetes for many years. Patient is on medications, losartan 100 mg daily. Patient is on Lipitor. Patient is on stool softener, folic acid, heparin drip. Patient is on insulin coverage for diabetes, meropenem 500 mg q.8 hours. Patient is also on vancomycin once a day. Patient gets pantoprazole 40 mg daily and Percocet for pain. PHYSICAL EXAMINATION VITAL SIGNS: This morning, pulse of 68, blood pressure 123/71, respirations are 18, O2 sat is 95% on room air. HEENT: Patient's head is normocephalic. He is sitting in the chair. NECK: JVP is not elevated. Thyroid is not enlarged. LUNGS: Trachea central. Breath sounds are vesicular. No adventitious sounds are heard. HEART: Normal sinus rhythm. S1 and S2 present. ABDOMEN: Soft. Obesity present. CENTRAL NERVOUS SYSTEM: The patient is conscious, rational and oriented. No focal deficits. Patient is treated for infection, diabetes and we will follow up with Medical Management. LABORATORY DATA: His laboratory finding shows a hemoglobin of 10.7. He has chronic anemia. Patient's chemistry, his BUN is 24, creatinine is 5.8. ASSESSMENT AND PLAN: The patient has history of being on dialysis. These findings are not acute. They are chronic. Patient will continue to get his dialysis while the patient is in the Transitional Care Unit. He will continue with wound care and physical therapy. Prabha Zarco MD SHAIL[facility]
--- NOTE | 2017-09-03 14:21 | CP.PCM.PN ---
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 Patient is seen resting comfortably in chair, in NAD, and AA0x3. Patient reports that he is feeling well. Denies acute overnight events. Denies n/v/sob/cp/chills or f. No new pedal complaints. Objective - Vital Signs/Intake and Output Vital Signs (last 24 hours): Temp Pulse Resp BP Pulse Ox 98 F 68 18 123/71 95 09/02/17 17:47 09/02/17 17:47 09/02/17 17:47 09/02/17 17:47 09/02/17 17:47 Intake and Output: 09/03/17 09/03/17 06:59 18:59 Intake Total 250 50 Balance 250 50 - Medications Medications: Current Medications Acetaminophen (Tylenol 325mg Tab) 650 mg PO Q6H PRN; Protocol PRN Reason: TEMP>=99.5F Acetaminophen (Tylenol 325mg Tab) 650 mg PO Q4H PRN; Protocol PRN Reason: mild pain 1-3 Aspirin (Ecotrin) 81 mg PO 0800 [facility] PRN Reason: Protocol Last Admin: 09/03/17 08:17 Dose: 81 mg Atorvastatin Calcium (Lipitor) 40 mg PO DIN [facility] PRN Reason: Protocol Last Admin: 09/02/17 17:32 Dose: 40 mg Calcium Acetate (Phoslo) 667 mg PO TID [facility] Last Admin: 09/03/17 11:26 Dose: 667 mg Cinacalcet (Sensipar) 30 mg PO DAILY [facility] PRN Reason: Protocol Last Admin: 09/03/17 11:26 Dose: 30 mg Diphenhydramine HCl (Benadryl) 25 mg PO HS PRN; Protocol PRN Reason: Insomnia Docusate Sodium (Colace) 100 mg PO TID [facility] PRN Reason: Protocol Last Admin: 09/03/17 10:53 Dose: 100 mg Duloxetine HCl (Cymbalta) 60 mg PO DAILY [facility] PRN Reason: Protocol Last Admin: 09/03/17 10:53 Dose: 60 mg Ergocalciferol (Drisdol 50,000 Intl Units Cap) 1 cap PO Q7D [facility] PRN Reason: Protocol Folic Acid (Folic Acid) 5 mg PO DAILY [facility] PRN Reason: Protocol Last Admin: 09/03/17 10:54 Dose: 5 mg Meropenem 500 mg/ Sodium (Chloride) 50 mls @ 100 mls/hr IVPB 1800 [facility] PRN Reason: Protocol Last Admin: 09/02/17 17:32 Dose: 100 mls/hr Vancomycin HCl (Vancomycin 500mg In Ns) 500 mg in 100 mls @ 200 mls/hr IVPB MWF [facility] PRN Reason: Protocol Heparin Sodium/Sodium Chloride (Heparin 31539 Units/250ml 1/2 Normal Saline) 25 ,000 units in 250 mls @ 21.073 mls/hr IV .[id number] PRN; Protocol; 18 UNITS/KG/HR PRN Reason: ADJUST RATE PER PROTOCOL Last Titration: 09/03/17 09:40 Dose: 14.26 units/kg/hr, 16.694 mls/hr Insulin Human Regular (Humulin R Med) 0 units SC ACHS [facility] PRN Reason: Protocol Last Admin: 09/03/17 12:30 Dose: Not Given Losartan Potassium (Cozaar) 100 mg PO DAILY [facility] PRN Reason: Protocol Last Admin: 09/03/17 11:10 Dose: 100 mg Oxycodone/Acetaminophen (Percocet 5/325 Mg Tab) 2 tab PO Q4H PRN; Protocol PRN Reason: severe pain Stop: 09/03/17 20:32 Last Admin: 09/03/17 07:20 Dose: 2 tab Pantoprazole Sodium (Protonix Ec Tab) 20 mg PO 0600,1600 [facility] PRN Reason: Protocol Last Admin: 09/03/17 05:58 Dose: 20 mg Polyethylene Glycol (Miralax) 17 gm PO BID [facility] Last Admin: 09/03/17 10:54 Dose: 17 gm Sennosides (Senokot Tab) 17.2 mg PO HS [facility] PRN Reason: Protocol Last Admin: 09/02/17 22:26 Dose: 17.2 mg - Labs Labs: 09/03/17 06:30 09/02/17 07:00 PT 12.7 SECONDS (9.4-12.5) H 09/03/17 07:00 INR 1.10 (0.93-1.08) H 09/03/17 07:00 APTT 97.3 Seconds (25.1-36.5) H 09/03/17 07:00 - Constitutional Appears: Well, Non-toxic, No Acute Distress - Extremities Exam Extremities Exam: absent: Calf Tenderness Additional comments: Dressing c/d/i without strikethrough No calf tenderness with palpation Assessment and Plan - Assessment and Plan (Free Text) Assessment: 66 year old male with 1) right 5th digit gangrene r/o osteomyelitis, POD#3 Right 5th digit amputation with partial metatarsal resection, 2) right 4th digit ischemia and developing gangrene Plan: Patient seen and evaluated Discussed with attending, Dr. Schneider Afebrile, WBC 12.1 likely reactive Venous duplex report: Negative for DVT Arterial duplex report: Limited study due to calcified vessels; right SFA occlusive disease; right distal waveforms are severely blunted -s/p vascular intervention 08/27/17 Right foot MRI - limited interpretation R foot XR (08/30/17): s/p amputation 5th digit with resection of distal 5th metatarsal R 5th digit WCx (08/24/17) reveals growth of stenotrophomonas maltophilia F/u intra-op specimens: 1) Right 5th digit wound culture - stenotrophomonas maltophilia (light growth ); enterococcus faecalis 2) Right 5th digit - pathology pending 3) 5th metatarsal head, clean margins - pathology pending 4th digit developing ischemic/necrotic changes continues, will continue to monitor for demarcation Patient will most likely require additional surgical intervention Plan for surgery possible Wednesday for 4th digit amputation Will finalize plan Wednesday after re-evaluation and extend of demarcation/ishemic changes to foot Dressing kept c/d/i Will change dressing tomorrow Patient to be PWB to heel only in surgical shoe with the assistance of walker -Continue PT/OT No ice or elevation to RLE Continue abx per ID - Merrem and add intermittent Vanco IV; follow up OR pathology Pain control - Tylenol 650mg PO, Percocet 1-2 tabs PO Podiatry will continue to follow patient while in house
[2017-09-03 14:25] LABS: ALBUMIN 3.8 g/dL (3.0-4.8); CALCIUM 9.2 mg/dL (8.4-10.5)
[2017-09-03] MEDS: Meropenem 500 MG in Sodium Chloride 0.9% 50 ML IVPB SCH (17:58)
--- NOTE | 2017-09-03 19:08 | PN ---
DATE: 09/03/2017 SUBJECTIVE: The patient is seen in the dialysis unit. He is awake, he is alert, he is comfortable. PHYSICAL EXAMINATION: GENERAL: Obese elderly male. VITAL SIGNS: Blood pressure 123/71, heart rate 68, respiratory rate 18, temperature 98. HEENT: Normocephalic, atraumatic. EXTREMITIES: No lower extremity edema. LABORATORY DATA: WBC 12, hemoglobin 10.7, hematocrit 33, platelets 333. Sodium 131, potassium 4.0, chloride 94, CO2 of 23, BUN 37, creatinine 8.4, glucose 168, calcium 9.2, phosphorus 2.1, magnesium 2.0. CURRENT MEDICATIONS: PhosLo 667 t.i.d. with meals. ASSESSMENT AND PLAN: 1. Endstage renal disease, stable, dialysis today. 2. Hypophosphatemia, hold phosphate binders for the time being. 3. Hypertension, well controlled. 4. Non-insulin dependent diabetes mellitus, continue to monitor fingersticks. 5. Peripheral artery disease, status post gangrene of toes, status post amputation of toe. Svetlana Hillman MD
[2017-09-04 04:04] LABS: GRAN % 70.9 % (50.0-68.0); HEMOGLOBIN 10.6 g/dL (14.0-18.0); LYMPH % 14.9 % (22.0-35.0); MEAN CELL VOLUME 87.8 fl (80.0-105.0); MEAN CORPUSCULAR HGB CONC 31.9 g/dl (31.0-37.0); MEAN PLATELET VOLUME 10.2 fl (7.0-11.0); MONO % 10.8 % (1.0-6.0); RBC 3.78 10^6/uL (3.5-6.1); RED CELL DISTRIBUTION WIDTH 15.8 % (11.5-14.5)
[2017-09-04 04:05] LABS: BASO # 0.04 K/mm3 (0.0-2.0); BASO % 0.4 % (0.0-3.0); EOS # 0.3 (0.0-0.7); GRAN # 7.78 (1.4-6.5); LYMPH # 1.6 (1.2-3.4); MONO # 1.2 (0.1-0.6)
[2017-09-04 04:25] LABS: PARTIAL THROMBOPLASTIN TIME 49.4 Seconds (25.1-36.5)
[2017-09-04 04:39] LABS: INR 1.09 (0.93-1.08); PROTHROMBIN TIME 12.5 SECONDS (9.4-12.5)
[2017-09-04] MEDS: Pantoprazole 20 mg EC Tab PO SCH ×2 (05:27→16:21)
[2017-09-04] MEDS: Insulin Reg-MEDIUM-Coverage SC SCH ×4 (06:30→22:09)
[2017-09-04] MEDS: Oxycodone/Acetaminophen 5/325 mg Tab PO PRN ×2 (08:10→22:58)
[2017-09-04] MEDS: POLYETHYLENE GLYCOL 3350 17 GM/Dose PACKET PO SCH ×2 (09:59→17:21)
--- NOTE | 2017-09-04 10:09 | CP.PCM.PN ---
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 Pt is evaluated POD #4 s/pright 5th ray amputation. Patient is seen resting comfortably in chair, in NAD, and AA0x3. Patient reports that he is feeling well. Denies acute overnight events. Denies n/v/sob/cp/chills or f. No new pedal complaints. Objective - Vital Signs/Intake and Output Vital Signs (last 24 hours): Temp Pulse Resp BP Pulse Ox 98 F 68 18 123/71 95 09/03/17 16:59 09/02/17 17:47 09/02/17 17:47 09/02/17 17:47 09/02/17 17:47 Intake and Output: 09/04/17 09/04/17 06:59 18:59 Intake Total 200 Balance 200 - Medications Medications: Current Medications Acetaminophen (Tylenol 325mg Tab) 650 mg PO Q6H PRN; Protocol PRN Reason: TEMP>=99.5F Acetaminophen (Tylenol 325mg Tab) 650 mg PO Q4H PRN; Protocol PRN Reason: mild pain 1-3 Last Admin: 09/03/17 16:59 Dose: 650 mg Aspirin (Ecotrin) 81 mg PO 0800 [facility] PRN Reason: Protocol Last Admin: 09/04/17 08:12 Dose: 81 mg Atorvastatin Calcium (Lipitor) 40 mg PO DIN [facility] PRN Reason: Protocol Last Admin: 09/03/17 17:59 Dose: 40 mg Calcium Acetate (Phoslo) 667 mg PO TID [facility] Last Admin: 09/03/17 11:26 Dose: 667 mg Cinacalcet (Sensipar) 30 mg PO DAILY [facility] PRN Reason: Protocol Last Admin: 09/03/17 11:26 Dose: 30 mg Diphenhydramine HCl (Benadryl) 25 mg PO HS PRN; Protocol PRN Reason: Insomnia Docusate Sodium (Colace) 100 mg PO TID [facility] PRN Reason: Protocol Last Admin: 09/03/17 14:00 Dose: Not Given Duloxetine HCl (Cymbalta) 60 mg PO DAILY [facility] PRN Reason: Protocol Last Admin: 09/03/17 10:53 Dose: 60 mg Ergocalciferol (Drisdol 50,000 Intl Units Cap) 1 cap PO Q7D [facility] PRN Reason: Protocol Folic Acid (Folic Acid) 5 mg PO DAILY [facility] PRN Reason: Protocol Last Admin: 09/03/17 10:54 Dose: 5 mg Meropenem 500 mg/ Sodium (Chloride) 50 mls @ 100 mls/hr IVPB 1800 [facility] PRN Reason: Protocol Last Admin: 09/03/17 17:58 Dose: 100 mls/hr Vancomycin HCl (Vancomycin 500mg In Ns) 500 mg in 100 mls @ 200 mls/hr IVPB MWF [facility] PRN Reason: Protocol Last Admin: 09/03/17 10:00 Dose: Not Given Heparin Sodium/Sodium Chloride (Heparin 46748 Units/250ml 1/2 Normal Saline) 25 ,000 units in 250 mls @ 21.073 mls/hr IV .[id number] PRN; Protocol; 18 UNITS/KG/HR PRN Reason: ADJUST RATE PER PROTOCOL Last Admin: 09/03/17 21:15 Dose: 14.26 units/kg/hr, 16.694 mls/hr Insulin Human Regular (Humulin R Med) 0 units SC ACHS [facility] PRN Reason: Protocol Last Admin: 09/04/17 06:30 Dose: Not Given Losartan Potassium (Cozaar) 100 mg PO DAILY [facility] PRN Reason: Protocol Last Admin: 09/03/17 11:10 Dose: 100 mg Oxycodone/Acetaminophen (Percocet 5/325 Mg Tab) 2 tab PO Q4H PRN; Protocol PRN Reason: Pain, severe (8-10) Stop: 09/06/17 21:06 Last Admin: 09/04/17 08:10 Dose: 2 tab Pantoprazole Sodium (Protonix Ec Tab) 20 mg PO 0600,1600 [facility] PRN Reason: Protocol Last Admin: 09/04/17 05:27 Dose: 20 mg Polyethylene Glycol (Miralax) 17 gm PO BID [facility] Last Admin: 09/03/17 17:59 Dose: 17 gm Sennosides (Senokot Tab) 17.2 mg PO HS [facility] PRN Reason: Protocol Last Admin: 09/03/17 21:14 Dose: 17.2 mg - Labs Labs: 09/04/17 03:45 09/03/17 14:00 PT 12.5 SECONDS (9.4-12.5) 09/04/17 03:45 INR 1.09 (0.93-1.08) H 09/04/17 03:45 APTT 49.4 Seconds (25.1-36.5) H 09/04/17 03:45 - Constitutional Appears: Well, Non-toxic, No Acute Distress - Extremities Exam Additional comments: Right foot focused. Dressing c/d/i with minor sanguinous strikethrough to outer dressing layer. No calf tenderness with palpation. DERM: Full thickness surgical wound noted to lateral aspect of foot measuring 4.8 x 2.6 with mixed wound bed(70% granular, 20% fibrotic, 10% necrotic) with antibiotic impregnated beads present and in place. Mild plantar isela-wound margin maceration noted. Minor serous drainage noted, no mal-odor noted, no purulence. noted. 4th digit presents with atrophic gangrene changes including and distal to PIPJ. Hallux distal tuft ischemic change noted. VASC: DP pulses palpable 2/4. PT pulses weakly palpable 1/4. CFT unable to assess digits 1-4. Temperature gradient warm to warm. Nonpitting edema noted to forefoot, +1 pitting edema noted to right leg. NEURO: Gross sensation diminished. ORTHO: 5th digit amputation. Tenderness on palpation 4th digit. No pain on palpation digits 1-3. - Neurological Exam Neurological Exam: Alert, Awake, Oriented x3 - Psychiatric Exam Psychiatric exam: Normal Affect, Normal Mood Assessment and Plan - Assessment and Plan (Free Text) Assessment: 66 year old male with 1) right 5th digit gangrene with osteomyelitis, POD#5 Right 5th digit amputation with partial metatarsal resection, 2) right 4th digit ischemia and developing gangrene Plan: Patient seen and evaluated Discussed with attending, Dr. Schneider Afebrile, WBC 11.0, decreased, afebrile. Arterial duplex report: Limited study due to calcified vessels; right SFA occlusive disease; right distal waveforms are severely blunted F/u intra-op specimens: 1) Right 5th digit wound culture - stenotrophomonas maltophilia (light growth ); enterococcus faecalis 2) Right 5th digit - osteomyelitis and necrosis noted. 3) 5th metatarsal head, clean margins - negative for OM 4th digit developing ischemic/necrotic changes continues, will continue to monitor for demarcation Patient will most likely require additional surgical intervention Plan for surgery possible Ammy for 4th digit amputation Will finalize plan Wednesday after re-evaluation and extend of demarcation/ishemic changes to foot Redressed wound with Betadine, Adaptic, ABD, DSD. Patient to remain PWB to heel only in surgical shoe with the assistance of walker -Continue PT/OT No ice or elevation to RLE Continue abx per ID - Merrem and add intermittent Vanco IV; Pain control - Tylenol 650mg PO, Percocet 1-2 tabs PO Podiatry will continue to follow patient while in house
--- NOTE | 2017-09-04 11:15 | PN ---
DATE: SUBJECTIVE: The patient is in the Transitional Care Unit. He has infection of his foot and he had surgery. The patient is on dialysis for chronic renal failure. The patient also has a history of hypertension and atherosclerotic heart disease. The patient has dyspepsia and gastritis. The patient is seen this morning, he is sitting up and eating his breakfast. He says he feels okay. He is comfortable. PHYSICAL EXAMINATION VITAL SIGNS: His pulse is 68, blood pressure 120/70, respirations are 18. His O2 saturation is 95% on room air. LUNGS: Clear. HEART: Normal sinus rhythm. ABDOMEN: Soft. Obesity present. CENTRAL NERVOUS SYSTEM: No focal deficits. The patient has scheduled dialysis for his renal failure. He is getting antibiotic treatment. MEDICATIONS: List consist of aspirin. The patient is on losartan, Cymbalta, Colace, Benadryl, insulin coverage for diabetes, and meropenem which is given to him every 8 hours. The patient gets pain medication, which is Percocet 5/325 q. 6 hours p.r.n. for pain. The patient's condition is improving. We will continue current management and follow up. Prabha Zarco MD MTDD
--- NOTE | 2017-09-04 13:37 | PN ---
DATE: 09/04/2017 SUBJECTIVE: The patient is seen lying in bed. He is awake, he is alert, he is comfortable. He denies any pain. He denies any shortness of breath. PHYSICAL EXAMINATION: GENERAL: Obese, elderly male, lying in bed. VITAL SIGNS: Blood pressure 120/65, heart rate 69, respiratory rate 20, temperature 97.8. HEENT: Normocephalic, atraumatic. NECK: Supple, no JVD. LUNGS: Bilateral equal air entry, bilateral equal expansion, no rales. CARDIAC: S1 and S2, regular rate and rhythm, no murmur, no rub. ABDOMEN: Obese, distended, soft, nontender, bowel sounds present. EXTREMITIES: Dressing of the right foot. LABORATORY DATA: WBC 11, hemoglobin 10.6, hematocrit 33, and platelets 329. No chemistry. MEDICATIONS: List reviewed. ASSESSMENT: 1. Hypertension. 2. Aih-mcdmlhy-cpymdzhry diabetes mellitus. 3. Peripheral arterial disease, status post amputation of right toe. 4. End-stage renal disease. 5. Anemia of chronic kidney disease. 6. Coronary artery disease. 7. Recent cerebrovascular accident. 8. Secondary hyperparathyroidism. PLAN: 1. Stable dialysis yesterday. 2. Continue antibiotics. 3. Continue wound care. 4. Physical therapy. 5. Monitor fingersticks and maintain euglycemia. 6. Continue current antihypertensives. Svetlana Hillman MD
--- NOTE | 2017-09-04 15:55 | CP.PCM.PN ---
Subjective - Date & Time of Evaluation Date of Evaluation: 09/04/17 Time of Evaluation: 10:55 - Subjective Subjective: Comfortable, no fevers. Objective - Vital Signs/Intake and Output Vital Signs (last 24 hours): Temp Pulse Resp BP Pulse Ox 98 F 68 18 109/53 L 100 09/01/17 18:30 09/01/17 18:30 09/01/17 18:30 09/01/17 18:30 09/01/17 18:30 - Medications Medications: Current Medications Acetaminophen (Tylenol 325mg Tab) 650 mg PO Q6H PRN; Protocol PRN Reason: TEMP>=99.5F Acetaminophen (Tylenol 325mg Tab) 650 mg PO Q4H PRN; Protocol PRN Reason: mild pain 1-3 Aspirin (Ecotrin) 81 mg PO 0800 [facility] PRN Reason: Protocol Last Admin: 09/02/17 08:08 Dose: 81 mg Atorvastatin Calcium (Lipitor) 40 mg PO DIN [facility] PRN Reason: Protocol Last Admin: 09/01/17 18:28 Dose: 40 mg Calcium Acetate (Phoslo) 667 mg PO TID [facility] Last Admin: 09/01/17 18:29 Dose: 667 mg Cinacalcet (Sensipar) 30 mg PO DAILY [facility] PRN Reason: Protocol Last Admin: 09/02/17 09:39 Dose: 30 mg Diphenhydramine HCl (Benadryl) 25 mg PO HS PRN; Protocol PRN Reason: Insomnia Docusate Sodium (Colace) 100 mg PO TID [facility] PRN Reason: Protocol Last Admin: 09/02/17 09:36 Dose: 100 mg Duloxetine HCl (Cymbalta) 60 mg PO DAILY [facility] PRN Reason: Protocol Last Admin: 09/02/17 09:37 Dose: 60 mg Ergocalciferol (Drisdol 50,000 Intl Units Cap) 1 cap PO Q7D [facility] PRN Reason: Protocol Folic Acid (Folic Acid) 5 mg PO DAILY [facility] PRN Reason: Protocol Last Admin: 09/02/17 09:37 Dose: 5 mg Meropenem 500 mg/ Sodium (Chloride) 50 mls @ 100 mls/hr IVPB 1800 [facility] PRN Reason: Protocol Last Admin: 09/01/17 18:27 Dose: 100 mls/hr Vancomycin HCl (Vancomycin 500mg In Ns) 500 mg in 100 mls @ 200 mls/hr IVPB MWF [facility] PRN Reason: Protocol Heparin Sodium/Sodium Chloride (Heparin 94433 Units/250ml 1/2 Normal Saline) 25 ,000 units in 250 mls @ 18 mls/hr IV .[id number] PRN; Protocol; Titrate PRN Reason: ADJUST RATE PER PROTOCOL Last Admin: 09/01/17 23:51 Dose: 18 mls/hr Insulin Human Regular (Humulin R Med) 0 units SC ACHS [facility] PRN Reason: Protocol Last Admin: 09/02/17 06:32 Dose: Not Given Losartan Potassium (Cozaar) 100 mg PO DAILY [facility] PRN Reason: Protocol Last Admin: 09/02/17 09:37 Dose: 100 mg Oxycodone/Acetaminophen (Percocet 5/325 Mg Tab) 2 tab PO Q4H PRN; Protocol PRN Reason: severe pain Stop: 09/03/17 20:32 Last Admin: 09/02/17 08:07 Dose: 2 tab Pantoprazole Sodium (Protonix Ec Tab) 20 mg PO 0600,1600 [facility] PRN Reason: Protocol Last Admin: 09/02/17 05:48 Dose: 20 mg Polyethylene Glycol (Miralax) 17 gm PO BID [facility] Last Admin: 09/02/17 09:37 Dose: 17 gm Sennosides (Senokot Tab) 17.2 mg PO HS [facility] PRN Reason: Protocol Last Admin: 09/01/17 21:31 Dose: 17.2 mg - Labs Labs: 09/02/17 07:00 09/02/17 07:00 PT 13.1 SECONDS (9.4-12.5) H 09/02/17 07:00 INR 1.14 (0.93-1.08) H 09/02/17 07:00 APTT 38.5 Seconds (25.1-36.5) H 09/02/17 07:00 - Constitutional Appears: Chronically Ill - Head Exam Head Exam: NORMAL INSPECTION - ENT Exam ENT Exam: Mucous Membranes Moist - Neck Exam Neck Exam: absent: Meningismus - Respiratory Exam Respiratory Exam: Decreased Breath Sounds - Cardiovascular Exam Cardiovascular Exam: +S1, +S2 - GI/Abdominal Exam GI & Abdominal Exam: Soft. absent: Tenderness - Extremities Exam Additional comments: right foot with dressings in place Assessment and Plan - Assessment and Plan (Free Text) Plan: Assessment Consider right foot skin and skin structure infection, severe, R/O osteomyelitis , growing Stenotrophomonas, S/P right 5th toe amputation and 5th metatarsal partial amputation POD #5, growing Stenotrophomonas and E. faecalis ESRD on HD history of CVA HTN cataracts DM Plan continue Merrem and intermittent Vanco IV; follow up OR pathology patient may still need debridement or amputation - follow up Podiatry recommendations will monitor clinically
[2017-09-04] MEDS ORDERED: Heparin25000 units/250ml 1/2NS 25,000 UNITS/250 ML BAG IV PRN (17:10)
[2017-09-04] MEDS: Meropenem 500 MG in Sodium Chloride 0.9% 50 ML IVPB SCH (17:19)
[2017-09-05] MEDS: Heparin25000 units/250ml 1/2NS 25,000 UNITS/250 ML BAG IV PRN ×2 (00:44→14:02)
[2017-09-05] MEDS: Pantoprazole 20 mg EC Tab PO SCH ×2 (06:17→17:00)
[2017-09-05 07:03] LABS: BASO # 0.02 K/mm3 (0.0-2.0); BASO % 0.2 % (0.0-3.0); EOS # 0.5 (0.0-0.7); EOS % 4.3 % (1.5-5.0); GRAN # 7.39 (1.4-6.5); GRAN % 69.6 % (50.0-68.0); HEMOGLOBIN 10.5 g/dL (14.0-18.0); LYMPH # 1.7 (1.2-3.4); LYMPH % 16.1 % (22.0-35.0); MEAN CELL VOLUME 85.9 fl (80.0-105.0); MEAN CORPUSCULAR HEMOGLOBIN 27.5 pg (25.0-35.0); MEAN PLATELET VOLUME 9.5 fl (7.0-11.0); MONO % 9.8 % (1.0-6.0); RBC 3.82 10^6/uL (3.5-6.1); WHITE BLOOD COUNT 10.6 10^3/ul (4.5-11.0)
[2017-09-05] MEDS: Insulin Reg-MEDIUM-Coverage SC SCH ×4 (07:05→22:11)
[2017-09-05] MEDS: Oxycodone/Acetaminophen 5/325 mg Tab PO PRN (07:25)
[2017-09-05 07:44] LABS: PROTHROMBIN TIME 12.1 SECONDS (9.4-12.5)
[2017-09-05 07:45] LABS: INR 1.05 (0.93-1.08)
[2017-09-05 07:57] LABS: PARTIAL THROMBOPLASTIN TIME 320.7 Seconds (25.1-36.5)
[2017-09-05] MEDS: POLYETHYLENE GLYCOL 3350 17 GM/Dose PACKET PO SCH ×2 (09:12→17:48)
--- NOTE | 2017-09-05 10:56 | PN ---
DATE: LOCATION: The patient is in room 327, bed 1. SUBJECTIVE: The patient admitted to the Transitional Care Unit post surgery by amputation of his toe. The patient is a diabetic. The patient is on renal dialysis. He has history of atherosclerotic heart disease, coronary artery disease. The patient is seen this morning. He says the surgeon has told him that he might need another surgical procedure on the foot. The patient will be evaluated tomorrow and management plan will be set up. PHYSICAL EXAMINATION: VITAL SIGNS: The patient's vital signs this morning, his pulse is 63, temperature 97.3, his blood pressure 130/67. HEENT: The patient's head is normocephalic. NECK: On examination, his neck, the thyroid is not enlarged. JVP is flat. Carotid pulses are present. LUNGS: Trachea central. Breath sounds vesicular. No adventitious sounds. HEART: NSR. S1, S2 present. No murmurs. ABDOMEN: Soft. Obesity present. CLASSER: No focal deficit. He is in the Transitional Care Unit, currently getting physical therapy treatment for his infection in the foot and also dressing of his wound in the foot. LABORATORY DATA: The patient's lab work done yesterday shows a hemoglobin of 10.5, his white count is 10,600. His chemistry: His blood sugar is 136 and currently he is on a diabetic renal diet. ASSESSMENT AND PLAN: The patient's prognosis is guarded. Condition seemed to be stable. We will follow up. Prabha Zarco MD MTDMatthias
--- NOTE | 2017-09-05 15:48 | CP.PCM.PN ---
Subjective - Date & Time of Evaluation Date of Evaluation: 09/05/17 Time of Evaluation: 14:45 - Subjective Subjective: Podiatry Progress Note- Dr. Schneider 66 y.o male seen and evaluated at bedside. Pt is evaluated POD #5 s/p right 5th ray amputation. Patient is seen resting comfortably in chair, in NAD, and AA0x3. Patient reports that he is feeling well. Denies acute overnight events. Denies n/v/sob/cp/chills or f. No new pedal complaints. Objective - Vital Signs/Intake and Output Vital Signs (last 24 hours): Temp Pulse Resp BP Pulse Ox 97.3 F L 63 18 128/62 96 09/04/17 16:32 09/04/17 16:32 09/04/17 16:32 09/04/17 16:32 09/04/17 16:32 Intake and Output: 09/05/17 09/05/17 06:59 18:59 Intake Total 580 250 Balance 580 250 - Medications Medications: Current Medications Acetaminophen (Tylenol 325mg Tab) 650 mg PO Q6H PRN; Protocol PRN Reason: TEMP>=99.5F Acetaminophen (Tylenol 325mg Tab) 650 mg PO Q4H PRN; Protocol PRN Reason: mild pain 1-3 Last Admin: 09/03/17 16:59 Dose: 650 mg Aspirin (Ecotrin) 81 mg PO 0800 [facility] PRN Reason: Protocol Last Admin: 09/05/17 08:08 Dose: 81 mg Atorvastatin Calcium (Lipitor) 40 mg PO DIN [facility] PRN Reason: Protocol Last Admin: 09/04/17 17:19 Dose: 40 mg Calcium Acetate (Phoslo) 667 mg PO TID [facility] Last Admin: 09/03/17 11:26 Dose: 667 mg Cinacalcet (Sensipar) 30 mg PO DAILY [facility] PRN Reason: Protocol Last Admin: 09/05/17 09:12 Dose: 30 mg Diphenhydramine HCl (Benadryl) 25 mg PO HS PRN; Protocol PRN Reason: Insomnia Docusate Sodium (Colace) 100 mg PO TID [facility] PRN Reason: Protocol Last Admin: 09/05/17 13:54 Dose: 100 mg Duloxetine HCl (Cymbalta) 60 mg PO DAILY [facility] PRN Reason: Protocol Last Admin: 09/05/17 09:14 Dose: 60 mg Ergocalciferol (Drisdol 50,000 Intl Units Cap) 1 cap PO Q7D [facility] PRN Reason: Protocol Folic Acid (Folic Acid) 5 mg PO DAILY [facility] PRN Reason: Protocol Last Admin: 09/05/17 09:11 Dose: 5 mg Meropenem 500 mg/ Sodium (Chloride) 50 mls @ 100 mls/hr IVPB 1800 [facility] PRN Reason: Protocol Last Admin: 09/04/17 17:19 Dose: 100 mls/hr Vancomycin HCl (Vancomycin 500mg In Ns) 500 mg in 100 mls @ 200 mls/hr IVPB MWF [facility] PRN Reason: Protocol Last Admin: 09/03/17 10:00 Dose: Not Given Heparin Sodium/Sodium Chloride (Heparin 77473 Units/250ml 1/2 Normal Saline) 25 ,000 units in 250 mls @ 11.356 mls/hr IV .Q22H1M PRN; Protocol; 9.7 UNITS/KG/HR PRN Reason: ADJUST RATE PER PROTOCOL Last Admin: 09/05/17 14:02 Dose: 13.41 units/kg/hr, 15.7 mls/hr Insulin Human Regular (Humulin R Med) 0 units SC ACHS [facility] PRN Reason: Protocol Last Admin: 09/05/17 12:08 Dose: 1 units Losartan Potassium (Cozaar) 100 mg PO DAILY [facility] PRN Reason: Protocol Last Admin: 09/05/17 09:12 Dose: 100 mg Oxycodone/Acetaminophen (Percocet 5/325 Mg Tab) 2 tab PO Q4H PRN; Protocol PRN Reason: Pain, severe (8-10) Stop: 09/06/17 21:06 Last Admin: 09/05/17 07:25 Dose: 2 tab Pantoprazole Sodium (Protonix Ec Tab) 20 mg PO 0600,1600 [facility] PRN Reason: Protocol Last Admin: 09/05/17 06:17 Dose: 20 mg Polyethylene Glycol (Miralax) 17 gm PO BID [facility] Last Admin: 09/05/17 09:12 Dose: 17 gm Sennosides (Senokot Tab) 17.2 mg PO HS [facility] PRN Reason: Protocol Last Admin: 09/04/17 22:10 Dose: 17.2 mg - Labs Labs: 09/05/17 06:30 09/03/17 14:00 PT 12.1 SECONDS (9.4-12.5) 09/05/17 06:30 INR 1.05 (0.93-1.08) 09/05/17 06:30 APTT 38.4 Seconds (25.1-36.5) H 09/05/17 08:30 - Constitutional Appears: Well, Non-toxic, No Acute Distress - Extremities Exam Additional comments: Dressings clean, dry, and intact. Dressing left in place to not disturb antibiotic impregnated beads. 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 Discussed with attending, Dr. Schneider. Afebrile, absent leukocytosis. Arterial duplex report: Limited study due to calcified vessels; right SFA occlusive disease; right distal waveforms are severely blunted Intra-operative specimens: 1) Right 5th digit wound culture - stenotrophomonas maltophilia (light growth ); enterococcus faecalis 2) Right 5th digit - osteomyelitis and necrosis noted. 3) 5th metatarsal head, clean margins - negative for OM 4th digit developing ischemic/necrotic changes continues, will continue to monitor for demarcation Plan for surgery possible Wednesday for 4th digit amputation Will finalize plan Wednesday after re-evaluation and extend of demarcation/ ishemic changes to foot rigth foot wound dressing of Betadine, Adaptic, ABD, DSD, left intact. Patient to remain PWB to heel only in surgical shoe with the assistance of walker -Continue PT/OT No ice or elevation to RLE Podiatry will continue to follow patient while in house
--- NOTE | 2017-09-05 17:04 | CP.PCM.PN ---
Subjective - Date & Time of Evaluation Date of Evaluation: 09/05/17 Time of Evaluation: 10:35 - Subjective Subjective: Comfortable, no fevers, less pain in the right foot. No nausea, no diarrhea. Objective - Vital Signs/Intake and Output Vital Signs (last 24 hours): Temp Pulse Resp BP Pulse Ox 97.8 F 69 20 120/65 98 09/04/17 10:54 09/04/17 10:54 09/04/17 10:54 09/04/17 10:54 09/04/17 10:54 Intake and Output: 09/04/17 09/04/17 06:59 18:59 Intake Total 200 Balance 200 - Medications Medications: Current Medications Acetaminophen (Tylenol 325mg Tab) 650 mg PO Q6H PRN; Protocol PRN Reason: TEMP>=99.5F Acetaminophen (Tylenol 325mg Tab) 650 mg PO Q4H PRN; Protocol PRN Reason: mild pain 1-3 Last Admin: 09/03/17 16:59 Dose: 650 mg Aspirin (Ecotrin) 81 mg PO 0800 [facility] PRN Reason: Protocol Last Admin: 09/04/17 08:12 Dose: 81 mg Atorvastatin Calcium (Lipitor) 40 mg PO DIN [facility] PRN Reason: Protocol Last Admin: 09/03/17 17:59 Dose: 40 mg Calcium Acetate (Phoslo) 667 mg PO TID [facility] Last Admin: 09/03/17 11:26 Dose: 667 mg Cinacalcet (Sensipar) 30 mg PO DAILY [facility] PRN Reason: Protocol Last Admin: 09/04/17 09:59 Dose: 30 mg Diphenhydramine HCl (Benadryl) 25 mg PO HS PRN; Protocol PRN Reason: Insomnia Docusate Sodium (Colace) 100 mg PO TID [facility] PRN Reason: Protocol Last Admin: 09/04/17 09:55 Dose: 100 mg Duloxetine HCl (Cymbalta) 60 mg PO DAILY [facility] PRN Reason: Protocol Last Admin: 09/04/17 09:57 Dose: 60 mg Ergocalciferol (Drisdol 50,000 Intl Units Cap) 1 cap PO Q7D [facility] PRN Reason: Protocol Folic Acid (Folic Acid) 5 mg PO DAILY [facility] PRN Reason: Protocol Last Admin: 09/04/17 09:55 Dose: 5 mg Meropenem 500 mg/ Sodium (Chloride) 50 mls @ 100 mls/hr IVPB 1800 [facility] PRN Reason: Protocol Last Admin: 09/03/17 17:58 Dose: 100 mls/hr Vancomycin HCl (Vancomycin 500mg In Ns) 500 mg in 100 mls @ 200 mls/hr IVPB MWF [facility] PRN Reason: Protocol Last Admin: 09/03/17 10:00 Dose: Not Given Heparin Sodium/Sodium Chloride (Heparin 86247 Units/250ml 1/2 Normal Saline) 25 ,000 units in 250 mls @ 21.073 mls/hr IV .[id number] PRN; Protocol; 18 UNITS/KG/HR PRN Reason: ADJUST RATE PER PROTOCOL Last Admin: 09/03/17 21:15 Dose: 14.26 units/kg/hr, 16.694 mls/hr Insulin Human Regular (Humulin R Med) 0 units SC ACHS [facility] PRN Reason: Protocol Last Admin: 09/04/17 12:00 Dose: 1 units Losartan Potassium (Cozaar) 100 mg PO DAILY [facility] PRN Reason: Protocol Last Admin: 09/04/17 10:00 Dose: 100 mg Oxycodone/Acetaminophen (Percocet 5/325 Mg Tab) 2 tab PO Q4H PRN; Protocol PRN Reason: Pain, severe (8-10) Stop: 09/06/17 21:06 Last Admin: 09/04/17 08:10 Dose: 2 tab Pantoprazole Sodium (Protonix Ec Tab) 20 mg PO 0600,1600 [facility] PRN Reason: Protocol Last Admin: 09/04/17 05:27 Dose: 20 mg Polyethylene Glycol (Miralax) 17 gm PO BID [facility] Last Admin: 09/04/17 09:59 Dose: 17 gm Sennosides (Senokot Tab) 17.2 mg PO HS [facility] PRN Reason: Protocol Last Admin: 09/03/17 21:14 Dose: 17.2 mg - Labs Labs: 09/04/17 03:45 09/03/17 14:00 PT 12.5 SECONDS (9.4-12.5) 09/04/17 03:45 INR 1.09 (0.93-1.08) H 09/04/17 03:45 APTT 61.3 Seconds (25.1-36.5) H 09/04/17 09:40 - Constitutional Appears: Non-toxic, Chronically Ill - Head Exam Head Exam: NORMAL INSPECTION - ENT Exam ENT Exam: Mucous Membranes Moist - Neck Exam Neck Exam: absent: Meningismus - Respiratory Exam Respiratory Exam: Decreased Breath Sounds - Cardiovascular Exam Cardiovascular Exam: +S1, +S2 - GI/Abdominal Exam GI & Abdominal Exam: Soft. absent: Tenderness - Extremities Exam Additional comments: right foot with dressings in place Assessment and Plan - Assessment and Plan (Free Text) Plan: Assessment Consider right foot skin and skin structure infection, severe, R/O osteomyelitis , growing Stenotrophomonas, S/P right 5th toe amputation and 5th metatarsal partial amputation POD #6, growing Stenotrophomonas and E. faecalis ESRD on HD history of CVA HTN cataracts DM Plan continue Merrem and intermittent Vanco IV; follow up OR pathology patient may still need debridement or amputation - for possible OR tomorrow will continue to monitor clinically
--- NOTE | 2017-09-05 19:47 | PN ---
DATE: 09/05/2017 SUBJECTIVE: Patient is seen lying in bed. He is awake, he is alert, he is comfortable. PHYSICAL EXAMINATION: GENERAL: Obese, elderly male, lying in bed. VITAL SIGNS: Blood pressure 128/62, heart rate 63, respiratory rate 18. NECK: Supple, no JVD. LUNGS: Bilateral equal air entry, no rales. EXTREMITIES: No lower extremity edema. LABORATORY DATA: WBC 10.6, hemoglobin 10.5, hematocrit 33, platelets 338. No chemistry. MEDICATIONS: Reviewed. ASSESSMENT: 1. Non-insulin dependent diabetes mellitus. 2. Hypertension. 3. Morbid obesity. 4. End-stage renal disease. 5. Peripheral vascular disease status post toe amputation. PLAN: 1. Continue antibiotics. 2. Dialysis tomorrow. 3. Monitor fingersticks. 4. Continue antihypertensives. Svetlana Hillman MD
[2017-09-06] MEDS: Pantoprazole 20 mg EC Tab PO SCH ×2 (05:21→17:51)
[2017-09-06] MEDS: Insulin Reg-MEDIUM-Coverage SC SCH ×4 (07:01→22:45)
[2017-09-06 09:17] LABS: BASO # 0.03 K/mm3 (0.0-2.0); BASO % 0.2 % (0.0-3.0); EOS # 0.4 (0.0-0.7); EOS % 3.5 % (1.5-5.0); GRAN # 9.09 (1.4-6.5); GRAN % 73.2 % (50.0-68.0); HEMOGLOBIN 11.1 g/dL (14.0-18.0); LYMPH % 15.7 % (22.0-35.0); MEAN CELL VOLUME 85.2 fl (80.0-105.0); MEAN CORPUSCULAR HEMOGLOBIN 27.9 pg (25.0-35.0); MEAN CORPUSCULAR HGB CONC 32.7 g/dl (31.0-37.0); MEAN PLATELET VOLUME 9.6 fl (7.0-11.0); MONO # 0.9 (0.1-0.6); MONO % 7.4 % (1.0-6.0); RBC 3.98 10^6/uL (3.5-6.1); RED CELL DISTRIBUTION WIDTH 16.1 % (11.5-14.5); WHITE BLOOD COUNT 12.4 10^3/ul (4.5-11.0)
[2017-09-06 09:25] LABS: PARTIAL THROMBOPLASTIN TIME 67.6 Seconds (25.1-36.5); PROTHROMBIN TIME 11.5 SECONDS (9.4-12.5)
[2017-09-06] MEDS: POLYETHYLENE GLYCOL 3350 17 GM/Dose PACKET PO SCH ×2 (11:09→18:52)
--- NOTE | 2017-09-06 11:15 | PN ---
DATE: 09/06/2017 TIME: 0700 hours. LOCATION: Room 327, bed 1. SUBJECTIVE: Patient is sleeping, arouses normally and alert and oriented, responsive to questions. He complains of occasional intermittent spasms of pain into the right foot, typical of diabetic neuropathy and PAD neuropathy. His dressing had some moisture on it from the weekend. He is comfortable, otherwise and in good spirit. OBJECTIVE GENERAL: The patient is alert and oriented x3. He is in no acute distress. VITAL SIGNS: His vital signs are stable. LABORATORY DATA: His white count has remained elevated. He remains on antibiotic per ID. The right foot wound is examined. There is continued dry gangrene of the fourth toe on the right foot to the base. There is minimal exsanguination with palpation. The plantar and dorsal flaps are adequate. There are some of the antibiotic-eluting beads present in the base of the wound. The postoperative x-rays indicate no evidence of osteomyelitis in the stump of the fifth metatarsal. The pathology from the previous amputation indicates no osteomyelitis in the proximal aspect of the amputated bone. The white count remains elevated. The fourth toe remains clinically in a mummified gangrenous state. ASSESSMENT AND PLAN: Diabetes mellitus, morbid obesity with hypertension and end-stage renal disease, on dialysis with gangrene of the right fourth toe and severe peripheral arterial disease of the right fourth foot. The patient is advised of these findings and of the nature of the gangrenous fourth right toe and the need to amputate this. He is advised that we will go to the Operating Room tomorrow morning, September 07, under local sedation anesthesia for debridement of the right foot wound and amputation of the right fourth toe. We counseled him as to the severity of the small vessel disease and the continued risk of further debridement and amputation being required, should we be unable to find adequately perfused tissue to rule out healing of the tissues. Patient understands this and is prepared for the OR tomorrow morning. Mayito Schneider DPM
--- NOTE | 2017-09-06 12:10 | CP.PCM.PN ---
Subjective - Date & Time of Evaluation Date of Evaluation: 09/06/17 Time of Evaluation: 12:05 - Subjective Subjective: Patient seen and examined at bedside. Patient with no acute overnight events. Patient complains of mild lower extremity pain. Denies chest pain, shortness of breath, nausea, vomiting, diarrhea, fever, chills. Objective - Vital Signs/Intake and Output Vital Signs (last 24 hours): Temp Pulse Resp BP Pulse Ox 97.7 F 62 18 133/59 L 96 09/05/17 10:00 09/05/17 10:00 09/05/17 10:00 09/05/17 10:00 09/04/17 16:32 Intake and Output: 09/06/17 09/06/17 06:59 18:59 Intake Total 600 Balance 600 - Medications Medications: Current Medications Acetaminophen (Tylenol 325mg Tab) 650 mg PO Q6H PRN; Protocol PRN Reason: TEMP>=99.5F Acetaminophen (Tylenol 325mg Tab) 650 mg PO Q4H PRN; Protocol PRN Reason: mild pain 1-3 Last Admin: 09/03/17 16:59 Dose: 650 mg Aspirin (Ecotrin) 81 mg PO 0800 [facility] PRN Reason: Protocol Last Admin: 09/06/17 08:20 Dose: 81 mg Atorvastatin Calcium (Lipitor) 40 mg PO DIN [facility] PRN Reason: Protocol Last Admin: 09/05/17 17:48 Dose: 40 mg Calcium Acetate (Phoslo) 667 mg PO TID [facility] Last Admin: 09/03/17 11:26 Dose: 667 mg Cinacalcet (Sensipar) 30 mg PO DAILY [facility] PRN Reason: Protocol Last Admin: 09/06/17 11:09 Dose: 30 mg Diphenhydramine HCl (Benadryl) 25 mg PO HS PRN; Protocol PRN Reason: Insomnia Docusate Sodium (Colace) 100 mg PO TID [facility] PRN Reason: Protocol Last Admin: 09/06/17 11:03 Dose: 100 mg Duloxetine HCl (Cymbalta) 60 mg PO DAILY [facility] PRN Reason: Protocol Last Admin: 09/06/17 11:10 Dose: 60 mg Ergocalciferol (Drisdol 50,000 Intl Units Cap) 1 cap PO Q7D [facility] PRN Reason: Protocol Folic Acid (Folic Acid) 5 mg PO DAILY [facility] PRN Reason: Protocol Last Admin: 09/06/17 11:09 Dose: 5 mg Meropenem 500 mg/ Sodium (Chloride) 50 mls @ 100 mls/hr IVPB 1800 [facility] PRN Reason: Protocol Last Admin: 09/04/17 17:19 Dose: 100 mls/hr Vancomycin HCl (Vancomycin 500mg In Ns) 500 mg in 100 mls @ 200 mls/hr IVPB MWF [facility] PRN Reason: Protocol Last Admin: 09/03/17 10:00 Dose: Not Given Heparin Sodium/Sodium Chloride (Heparin 92903 Units/250ml 1/2 Normal Saline) 25 ,000 units in 250 mls @ 11.356 mls/hr IV .Q22H1M PRN; Protocol; 9.7 UNITS/KG/HR PRN Reason: ADJUST RATE PER PROTOCOL Last Admin: 09/05/17 14:02 Dose: 13.41 units/kg/hr, 15.7 mls/hr Insulin Human Regular (Humulin R Med) 0 units SC ACHS [facility] PRN Reason: Protocol Last Admin: 09/06/17 07:01 Dose: Not Given Losartan Potassium (Cozaar) 100 mg PO DAILY [facility] PRN Reason: Protocol Last Admin: 09/06/17 11:10 Dose: Not Given Oxycodone/Acetaminophen (Percocet 5/325 Mg Tab) 2 tab PO Q4H PRN; Protocol PRN Reason: Pain, severe (8-10) Stop: 09/06/17 21:06 Last Admin: 09/05/17 07:25 Dose: 2 tab Pantoprazole Sodium (Protonix Ec Tab) 20 mg PO 0600,1600 [facility] PRN Reason: Protocol Last Admin: 09/06/17 05:21 Dose: 20 mg Polyethylene Glycol (Miralax) 17 gm PO BID [facility] Last Admin: 09/06/17 11:09 Dose: 17 gm Sennosides (Senokot Tab) 17.2 mg PO HS [facility] PRN Reason: Protocol Last Admin: 09/05/17 22:11 Dose: 17.2 mg - Labs Labs: 09/06/17 09:00 09/03/17 14:00 PT 11.5 SECONDS (9.4-12.5) 09/06/17 09:00 INR 1.00 (0.93-1.08) 09/06/17 09:00 APTT 67.6 Seconds (25.1-36.5) H 09/06/17 09:00 - Constitutional Appears: Non-toxic, No Acute Distress - Head Exam Head Exam: ATRAUMATIC, NORMAL INSPECTION, NORMOCEPHALIC - ENT Exam ENT Exam: Mucous Membranes Moist - Respiratory Exam Respiratory Exam: Decreased Breath Sounds, NORMAL BREATHING PATTERN. absent: Rhonchi, Wheezes, Respiratory Distress - Cardiovascular Exam Cardiovascular Exam: RRR, +S1, +S2 - GI/Abdominal Exam GI & Abdominal Exam: Soft, Normal Bowel Sounds. absent: Tenderness - Extremities Exam Extremities Exam: Pedal Edema. absent: Calf Tenderness Additional comments: Lower extremity bandaged - Neurological Exam Neurological Exam: Alert, Awake, Oriented x3 - Psychiatric Exam Psychiatric exam: Normal Affect, Normal Mood - Skin Skin Exam: Dry, Intact, Warm Assessment and Plan - Assessment and Plan (Free Text) Plan: 66 year old male with PMH of ESRD on HD, history of CVA, HTN, cataracts, DM presents with right fourth toe gangrene. Patient will be undergoing amputation of the toe tomorrow as per podiatry. Patient will be made NPO in the morning and have heparin held for surgery. Patient is undergoing hemodialysis today and is participating in physical therapy. Patient remains on Merrem and intermitten Vancomycin. Will continue to monitor patient closely. Madi, PGY-2
[2017-09-06] MEDS ORDERED: Magnesium Citrate Oral SOL (300 ml) PO ONE (13:44)
--- NOTE | 2017-09-06 16:15 | RAD ---
HISTORY: post PICC insertion COMPARISON: 07/31/2017. FINDINGS: The right PICC line terminates in the SVC. LUNGS: No active pulmonary disease. PLEURA: No significant pleural effusion identified, no pneumothorax apparent. CARDIOVASCULAR: There is persistent moderate cardiomegaly. Atherosclerotic aortic arch calcifications are present. OSSEOUS STRUCTURES: No significant abnormalities. VISUALIZED UPPER ABDOMEN: Normal. OTHER FINDINGS: None. IMPRESSION: Right PICC line terminates in the SVC. No acute findings.
--- NOTE | 2017-09-06 17:08 | CP.PCM.PN ---
Subjective - Date & Time of Evaluation Date of Evaluation: 09/06/17 Time of Evaluation: 11:25 - Subjective Subjective: Comfortable on a chair, no fevers, not in distress, for surgery tomorrow for the right foot. Objective - Vital Signs/Intake and Output Vital Signs (last 24 hours): Temp Pulse Resp BP Pulse Ox 97.3 F L 63 18 128/62 96 09/04/17 16:32 09/04/17 16:32 09/04/17 16:32 09/04/17 16:32 09/04/17 16:32 Intake and Output: 09/05/17 09/05/17 06:59 18:59 Intake Total 580 250 Balance 580 250 - Medications Medications: Current Medications Acetaminophen (Tylenol 325mg Tab) 650 mg PO Q6H PRN; Protocol PRN Reason: TEMP>=99.5F Acetaminophen (Tylenol 325mg Tab) 650 mg PO Q4H PRN; Protocol PRN Reason: mild pain 1-3 Last Admin: 09/03/17 16:59 Dose: 650 mg Aspirin (Ecotrin) 81 mg PO 0800 [facility] PRN Reason: Protocol Last Admin: 09/05/17 08:08 Dose: 81 mg Atorvastatin Calcium (Lipitor) 40 mg PO DIN [facility] PRN Reason: Protocol Last Admin: 09/04/17 17:19 Dose: 40 mg Calcium Acetate (Phoslo) 667 mg PO TID [facility] Last Admin: 09/03/17 11:26 Dose: 667 mg Cinacalcet (Sensipar) 30 mg PO DAILY [facility] PRN Reason: Protocol Last Admin: 09/05/17 09:12 Dose: 30 mg Diphenhydramine HCl (Benadryl) 25 mg PO HS PRN; Protocol PRN Reason: Insomnia Docusate Sodium (Colace) 100 mg PO TID [facility] PRN Reason: Protocol Last Admin: 09/05/17 13:54 Dose: 100 mg Duloxetine HCl (Cymbalta) 60 mg PO DAILY [facility] PRN Reason: Protocol Last Admin: 09/05/17 09:14 Dose: 60 mg Ergocalciferol (Drisdol 50,000 Intl Units Cap) 1 cap PO Q7D [facility] PRN Reason: Protocol Folic Acid (Folic Acid) 5 mg PO DAILY [facility] PRN Reason: Protocol Last Admin: 09/05/17 09:11 Dose: 5 mg Meropenem 500 mg/ Sodium (Chloride) 50 mls @ 100 mls/hr IVPB 1800 [facility] PRN Reason: Protocol Last Admin: 09/04/17 17:19 Dose: 100 mls/hr Vancomycin HCl (Vancomycin 500mg In Ns) 500 mg in 100 mls @ 200 mls/hr IVPB MWF [facility] PRN Reason: Protocol Last Admin: 09/03/17 10:00 Dose: Not Given Heparin Sodium/Sodium Chloride (Heparin 18352 Units/250ml 1/2 Normal Saline) 25 ,000 units in 250 mls @ 11.356 mls/hr IV .Q22H1M PRN; Protocol; 9.7 UNITS/KG/HR PRN Reason: ADJUST RATE PER PROTOCOL Last Admin: 09/05/17 14:02 Dose: 13.41 units/kg/hr, 15.7 mls/hr Insulin Human Regular (Humulin R Med) 0 units SC ACHS [facility] PRN Reason: Protocol Last Admin: 09/05/17 12:08 Dose: 1 units Losartan Potassium (Cozaar) 100 mg PO DAILY [facility] PRN Reason: Protocol Last Admin: 09/05/17 09:12 Dose: 100 mg Oxycodone/Acetaminophen (Percocet 5/325 Mg Tab) 2 tab PO Q4H PRN; Protocol PRN Reason: Pain, severe (8-10) Stop: 09/06/17 21:06 Last Admin: 09/05/17 07:25 Dose: 2 tab Pantoprazole Sodium (Protonix Ec Tab) 20 mg PO 0600,1600 [facility] PRN Reason: Protocol Last Admin: 09/05/17 06:17 Dose: 20 mg Polyethylene Glycol (Miralax) 17 gm PO BID [facility] Last Admin: 09/05/17 09:12 Dose: 17 gm Sennosides (Senokot Tab) 17.2 mg PO HS [facility] PRN Reason: Protocol Last Admin: 09/04/17 22:10 Dose: 17.2 mg - Labs Labs: 09/05/17 06:30 09/03/17 14:00 PT 12.1 SECONDS (9.4-12.5) 09/05/17 06:30 INR 1.05 (0.93-1.08) 09/05/17 06:30 APTT 53.8 Seconds (25.1-36.5) H 09/05/17 15:00 - Constitutional Appears: Chronically Ill - Head Exam Head Exam: NORMAL INSPECTION - ENT Exam ENT Exam: Mucous Membranes Moist - Neck Exam Neck Exam: absent: Meningismus - Respiratory Exam Respiratory Exam: Decreased Breath Sounds - Cardiovascular Exam Cardiovascular Exam: +S1, +S2 - GI/Abdominal Exam GI & Abdominal Exam: Soft. absent: Tenderness - Extremities Exam Additional comments: right foot with dressings in place Assessment and Plan - Assessment and Plan (Free Text) Plan: Assessment Consider right foot skin and skin structure infection, severe, R/O osteomyelitis , growing Stenotrophomonas, S/P right 5th toe amputation and 5th metatarsal partial amputation POD #7, growing Stenotrophomonas and E. faecalis ESRD on HD history of CVA HTN cataracts DM Plan continue Merrem and intermittent Vanco IV; OR pathology shwing clean margins but patient still needs further debridement or amputation of 4th toe - for OR tomorrow and will follow OR pathology and cultures from tomorrow - may need 4 - 6 weeks of antibiotics will continue to monitor clinically
[2017-09-06 17:15] LABS: ALB/GLOB RATIO 1.1 (1.1-1.8); ALBUMIN 3.9 g/dL (3.0-4.8); MAGNESIUM 2.2 mg/dL (1.7-2.2)
[2017-09-06] MEDS: Meropenem 500 MG in Sodium Chloride 0.9% 50 ML IVPB SCH (17:50)
--- NOTE | 2017-09-06 20:03 | CP.PCM.PN ---
Subjective - Date & Time of Evaluation Date of Evaluation: 09/06/17 Time of Evaluation: 20:00 - Subjective Subjective: S:It was requested to hold heparin because patient is for procedure- debridement of right foot wound by at 07:30. I saw him when he was in a strecher in the middle of the door. Offers no complaint. O: Last Vital Signs 3 Temp 97.4 F L 09/06/17 17:45 Pulse 66 09/06/17 17:45 Resp 19 09/06/17 17:45 BP 130/77 09/06/17 17:45 Pulse Ox 99 09/06/17 17:45 Awake, alert , in no distress. Right leg swollien, right foot is covered. A: Right foot wound. For debridement of right foot wound in AM. Plan: Will hold heaprin from 01:30 AM . Nurse will call Dr. Jarrett and confirm. Objective - Vital Signs/Intake and Output Vital Signs (last 24 hours): Temp Pulse Resp BP Pulse Ox 97.4 F L 66 19 130/77 99 09/06/17 17:45 09/06/17 17:45 09/06/17 17:45 09/06/17 17:45 09/06/17 17:45 - Medications Medications: Current Medications Acetaminophen (Tylenol 325mg Tab) 650 mg PO Q6H PRN; Protocol PRN Reason: TEMP>=99.5F Acetaminophen (Tylenol 325mg Tab) 650 mg PO Q4H PRN; Protocol PRN Reason: mild pain 1-3 Last Admin: 09/06/17 15:33 Dose: 650 mg Aspirin (Ecotrin) 81 mg PO 0800 [facility] PRN Reason: Protocol Last Admin: 09/06/17 08:20 Dose: 81 mg Atorvastatin Calcium (Lipitor) 40 mg PO DIN [facility] PRN Reason: Protocol Last Admin: 09/05/17 17:48 Dose: 40 mg Calcium Acetate (Phoslo) 667 mg PO TID [facility] Last Admin: 09/03/17 11:26 Dose: 667 mg Cinacalcet (Sensipar) 30 mg PO DAILY [facility] PRN Reason: Protocol Last Admin: 09/06/17 11:09 Dose: 30 mg Diphenhydramine HCl (Benadryl) 25 mg PO HS PRN; Protocol PRN Reason: Insomnia Docusate Sodium (Colace) 100 mg PO TID [facility] PRN Reason: Protocol Last Admin: 09/06/17 15:00 Dose: 100 mg Duloxetine HCl (Cymbalta) 60 mg PO DAILY [facility] PRN Reason: Protocol Last Admin: 09/06/17 11:10 Dose: 60 mg Ergocalciferol (Drisdol 50,000 Intl Units Cap) 1 cap PO Q7D [facility] PRN Reason: Protocol Folic Acid (Folic Acid) 5 mg PO DAILY [facility] PRN Reason: Protocol Last Admin: 09/06/17 11:09 Dose: 5 mg Meropenem 500 mg/ Sodium (Chloride) 50 mls @ 100 mls/hr IVPB 1800 [facility] PRN Reason: Protocol Last Admin: 09/04/17 17:19 Dose: 100 mls/hr Vancomycin HCl (Vancomycin 500mg In Ns) 500 mg in 100 mls @ 200 mls/hr IVPB MWF [facility] PRN Reason: Protocol Last Admin: 09/03/17 10:00 Dose: Not Given Heparin Sodium/Sodium Chloride (Heparin 75881 Units/250ml 1/2 Normal Saline) 25 ,000 units in 250 mls @ 11.356 mls/hr IV .Q22H1M PRN; Protocol; 9.7 UNITS/KG/HR PRN Reason: ADJUST RATE PER PROTOCOL Last Admin: 09/05/17 14:02 Dose: 13.41 units/kg/hr, 15.7 mls/hr Insulin Human Regular (Humulin R Med) 0 units SC ACHS [facility] PRN Reason: Protocol Last Admin: 09/06/17 12:30 Dose: Not Given Lactulose (Enulose) 20 gm PO BID [facility] Last Admin: 09/06/17 15:33 Dose: 20 gm Losartan Potassium (Cozaar) 100 mg PO DAILY [facility] PRN Reason: Protocol Last Admin: 09/06/17 11:10 Dose: Not Given Oxycodone/Acetaminophen (Percocet 5/325 Mg Tab) 2 tab PO Q4H PRN; Protocol PRN Reason: Pain, severe (8-10) Stop: 09/06/17 21:06 Last Admin: 09/05/17 07:25 Dose: 2 tab Pantoprazole Sodium (Protonix Ec Tab) 20 mg PO 0600,1600 [facility] PRN Reason: Protocol Last Admin: 09/06/17 05:21 Dose: 20 mg Polyethylene Glycol (Miralax) 17 gm PO BID [facility] Last Admin: 09/06/17 11:09 Dose: 17 gm Sennosides (Senokot Tab) 17.2 mg PO [facility] PRN Reason: Protocol Last Admin: 09/05/17 22:11 Dose: 17.2 mg - Labs Labs: 09/06/17 09:00 09/06/17 16:40 PT 11.5 SECONDS (9.4-12.5) 09/06/17 09:00 INR 1.00 (0.93-1.08) 09/06/17 09:00 APTT 67.6 Seconds (25.1-36.5) H 09/06/17 09:00
--- NOTE | 2017-09-06 20:30 | PN ---
DATE: SUBJECTIVE: Patient is seen sitting in chair. He is awake. He is alert. He is comfortable. He denies any pain. He denies any shortness of breath. PHYSICAL EXAMINATION: GENERAL: Obese, elderly male, sitting in chair. VITAL SIGNS: Blood pressure 130/77, heart rate 66, respiratory rate 19, temperature 97.4. HEENT: Normocephalic, atraumatic, positive pallor. NECK: Supple, no JVD. LUNGS: Bilateral equal air entry, no rales. CARDIAC: S1 and S2. Regular rate and rhythm. No murmur, no rub. ABDOMEN: Obese, distended, soft, nontender, bowel sounds present. EXTREMITIES: No lower extremity edema, dressing of the right foot. LABORATORY DATA: WBC 12, hemoglobin 11, hematocrit 34, platelets 323. Sodium 130, potassium 4.0, chloride 90, CO2 25, BUN 45, creatinine 9.8, glucose 143, calcium 9.0, phosphorus 3.1, magnesium 2.2, albumin 3.1. CURRENT MEDICATIONS: Colace, Cozaar, Cymbalta, Drisdol, Ecotrin, lactulose, folic acid, heparin at 13 units/kg/hour, Lipitor, meropenem, MiraLax, PhosLo, Protonix, cinacalcet, Tylenol, vancomycin. ASSESSMENT: 1. Peripheral arterial disease, status post toe amputation. 2. Diabetic wound. 3. Hypertension. 4. End-stage renal disease. 5. Non-insulin dependent diabetes mellitus. 6. Recent cerebrovascular accident. 7. Coronary artery disease. PLAN 1. Continue antibiotics. 2. Monitor fingersticks and maintain euglycemia. 3. Dialysis today. 4. Continue antihypertensives. 5. Avoid nephrotoxins. Svetlana Hillman MD
[2017-09-07] MEDS ORDERED: Oxycodone/Acetaminophen 5/325 mg Tab PO PRN (00:06)
--- NOTE | 2017-09-07 02:52 | PN ---
DATE: 09/06/2017 SUBJECTIVE: Patient is seen in room 327, bed 1. Patient is out of bed to chair. Overnight nurse's notes were reviewed. Patient was found to have a poor IV access. PHYSICAL EXAMINATION: VITAL SIGNS: T-max, afebrile, heart rate 64 to 66, blood pressure is 154/64 and 137/84, respiration 18, O2 sat 99%. HEENT: Head examination normocephalic, atraumatic. HEENT examination shows pinkish conjunctivae. Anicteric sclerae. No oropharyngeal lesion. NECK: No neck rigidity. Soft carotid bruit. CHEST: Kyphosis. LUNGS: Shows no rales, crackles or wheezing. CARDIOVASCULAR: S1, S2, regular rhythm. Positive systolic murmur left sternal border, right second intercostal space, left second intercostal space. ABDOMEN: Obese, protuberant. Positive bowel sounds. Unable to appreciate any hepatosplenomegaly. No guarding. No rigidity. No masses noted. GENITALIA: Male. VASCULAR: Positive left upper extremity AV fistula, positive thrill of the left upper extremity noted of the AV fistula. EXTREMITIES: Lower extremity shows positive lymphedema of the right lower extremity. Positive swelling. Positive dressing. Left lower extremity shows decreasing swelling. MUSCULOSKELETAL: Shows a body mass index of 31. NEUROLOGIC: Patient is alert, awake, oriented x3. Cranial nerves II through XII limited, but intact. Gait examination is not tested. DIAGNOSTICS: On 09/06, WBC 12.4, hemoglobin/hematocrit 11.1 and 34, platelet 323. Granulocytes, 73% segs. PTT 67. Sodium 130, potassium 4.0, chloride 90, CO2 25, anion gap 18, BUN 45, creatinine 9.8, GFR 6, glucose 118 and 143, calcium 9.0, hemoglobin A1c is 5.7. Alk phos 153. Vitamin D 28. PTH is 130. Patient had a PICC line placement at the right upper extremity, which was positioned, verified with a chest x-ray. IMPRESSION AND PLAN: 1. Right foot fifth toe Enterococcus faecalis and Stenotrophomonas maltophilia diabetic foot ulceration and gangrene. 2. Hypertension. 3. Bilateral lower extremity lymphedema and venous stasis. 4. Leukocytosis with granulocytosis. 5. Normocytic anemia. 6. Secondary hyperparathyroidism with elevated parathyroid hormone level of 130. 7. Hypovitaminosis D. 8. End-stage renal disease, hemodialysis dependent via the left upper extremity fistula three times a week. 9. Hyponatremia. 10. Gait dysfunction. 11. Morbid obesity. 12. Deconditioning. 13. Status post right upper extremity PICC line placement. 14. Peripheral vascular disease. 15. Right foot fourth toe gangrene and severe peripheral vascular disease. 16. Right foot fifth and fourth toe skin and skin structure infection severe, secondary to Enterococcus faecalis and Stenotrophomonas maltophilia infection. 17. Insomnia. 18. Constipation. 19. Diabetic neuropathy. 20. Insulin-requiring diabetes mellitus. 21. Hypercholesteremia. 22. Hyperphosphatemia. Plan at this time, patient is scheduled for right foot fourth toe amputation by the Podiatry. Patient is to be ordered repeat labs. Patient is on Benadryl 25 at bedtime p.r.n., Colace 100 mg three times a day, Cozaar 100 mg daily, Cymbalta 60 mg daily, Drisdol 50,000 units weekly. Patient is given a dose of Dulcolax suppository x1 for constipation, Ecotrin 81 mg daily folic acid 5 mg daily, heparin drip to be continued until holding orders by the Podiatry, Humulin medium dose sliding scale coverage a.c. and at bedtime, Lipitor 40 mg daily, meropenem 500 mg IV daily, MiraLax 17 g twice three times a day, PhosLo 667 mg three times a day, Protonix 40 mg daily, Senokot 17.2 mg at bedtime, Sensipar 30 mg daily, Tylenol 650 q. 6 p.r.n. p.o. suppository, vancomycin 500 mg IV Wednesday, Wednesday and Wednesday. It seems like the patient's pain medications have fallen off from the SEP, which will be reordered. Patient is scheduled for amputation of the right foot fourth toe in a.m. by Podiatry, which will be done under local anesthesia as per the Podiatry evaluation and recommendation. I have discussed the patient's condition, diagnosis and need for possible long-term IV antibiotic. Plan was discussed and explained to the patient, which he acknowledged understood. Patient is again stressed that he would prefer to either have home IV antibiotics or antibiotics on dialysis three times a week for which patient comes to the [facility] for hemodialysis. I have also discussed this treatment option with the social work professor regarding patient wishes to either have home IV antibiotics or antibiotics to be given when patient comes for hemodialysis at [facility] three times a week. At present, patient is to be continued on above therapeutic intervention. Patient's further management will be dependent upon the patient's clinical condition, hemodynamic status and as per patient's response to therapeutic intervention, as per the patient's diagnostic test results and as per recommendation by all the physicians involved in the care of the patient. Dictated and electronically signed, not read. Steve Rincon MD MTDD
[2017-09-07] MEDS: Pantoprazole 20 mg EC Tab PO SCH (05:17)
[2017-09-07] MEDS: Insulin Reg-MEDIUM-Coverage SC SCH (06:49)
[2017-09-07 06:57] LABS: BASO # 0.03 K/mm3 (0.0-2.0); BASO % 0.2 % (0.0-3.0); EOS # 0.3 (0.0-0.7); EOS % 2.5 % (1.5-5.0); GRAN # 9.82 (1.4-6.5); GRAN % 77.8 % (50.0-68.0); HEMOGLOBIN 11.3 g/dL (14.0-18.0); LYMPH # 1.6 (1.2-3.4); LYMPH % 12.8 % (22.0-35.0); MEAN CELL VOLUME 85.5 fl (80.0-105.0); MEAN CORPUSCULAR HEMOGLOBIN 27.8 pg (25.0-35.0); MEAN CORPUSCULAR HGB CONC 32.6 g/dl (31.0-37.0); MEAN PLATELET VOLUME 10.1 fl (7.0-11.0); MONO # 0.8 (0.1-0.6); MONO % 6.7 % (1.0-6.0); RBC 4.06 10^6/uL (3.5-6.1); RED CELL DISTRIBUTION WIDTH 16.6 % (11.5-14.5); WHITE BLOOD COUNT 12.6 10^3/ul (4.5-11.0)
[2017-09-07 07:03] VITALS: BP 123/57; PULSE 65; RESP 18; TEMP 97.9; O2SAT 95
[2017-09-07 07:15] LABS: PROTHROMBIN TIME 11.5 SECONDS (9.4-12.5)
[2017-09-07 07:31] LABS: PARTIAL THROMBOPLASTIN TIME 32.3 Seconds (25.1-36.5)
[2017-09-07] MEDS ORDERED: Midazolam 2 MG/2 ML VIAL ONE (07:42)
[2017-09-07] MEDS ORDERED: Propofol 10 mg/ml Inj (20 ML) ONE (07:42)
[2017-09-07 07:52] LABS: ALBUMIN 3.9 g/dL (3.0-4.8); CALCIUM 9.3 mg/dL (8.4-10.5)
[2017-09-07] MEDS ORDERED: HYDROmorphone 0.5 mg/0.5 ml ISec IVP PRN (08:46)
--- NOTE | 2017-09-07 12:36 | PN ---
DATE: SUBJECTIVE: The patient was seen earlier this morning in room transitional care in 327. The patient states he is ready for his procedure today. He had no fevers, no chills. He is awake and alert. PHYSICAL EXAMINATION: VITAL SIGNS: Temperature is 97, blood pressure is 120/50, respiratory rate of 18, heart rate of 65. HEENT: Examination of HEENT is unremarkable. NECK: Supple. LUNGS: Have decreased breath sounds. HEART: Normal S1, S2. ABDOMEN: Soft, nontender. LABORATORY DATA: Laboratory examination reveals a white count of 12,600, hemoglobin of 11, platelets of 359. Chemistries revealed the patient has a BUN of 37, creatinine of 8.2. ASSESSMENT AND PLAN: A 66-year-old male who was seen early this morning in room 327. Awake and alert and no complaints. He is awaiting for his surgery today on his right foot. He was admitted with a right foot skin and skin structure infection, rule out underlying osteomyelitis, growing Stenotrophomonas and status post right fifth toe amputation and fifth metatarsal partial amputation postprocedure day #8 and growing Stenotrophomonas and Enterococcus faecalis in a patient with history of end-stage renal disease, on hemodialysis; history of cerebrovascular accident; hypertension; cataracts. Currently, on intermittent vancomycin and meropenem and pending for today's surgery pathology and the OR cultures. We may need 4-6 weeks of antibiotics pending the pathology and culture results from today. Cornell Pelaez MD
--- NOTE | 2017-09-08 06:32 | DS ---
FINAL PROGRESS NOTE AND DISCHARGE SUMMARY HISTORY OF PRESENT ILLNESS: Patient is seen in the recovery room. Patient underwent foot surgery today and amputation of the fourth toe. Patient was seen in the recovery room today. Patient was evaluated by the mower sharpener and recommended to be transferred to acute medical floor for further management postoperatively. PHYSICAL EXAMINATION: VITAL SIGNS: T-max 97.9, pulse 65, blood pressure 123/57, respiration 18, O2 sat 95%. Patient is seen lying in the recovery room. HEENT: Head examination, normocephalic, atraumatic. HEENT examination shows pinkish pale conjunctivae. Anicteric sclerae. No oropharyngeal lesion. No neck rigidity. Soft carotid bruit. CHEST: Kyphosis. LUNGS: Examination shows occasional rhonchi, upper lung laguerre. CARDIOVASCULAR: Examination S1, S2, regular rhythm. Positive systolic murmur left sternal border, right second intercostal space, left second intercostal space. ABDOMEN: Obese. Positive bowel sounds. Unable to appreciate any hepatosplenomegaly. No guarding. No rigidity. No rebound tenderness. GENITALIA: Male. RECTAL: Examination is deferred. EXTREMITIES: Show positive lymphedema of the lower extremity right more than the left. Positive right foot dressing. MUSCULOSKELETAL: Shows elevated body mass index. NEUROLOGIC: Patient is alert, awake, responsive, is able to move upper and lower extremity without assistance. Patient is complaining of right foot pain. DIAGNOSTICS: On 09/07, WBC 12.6, hemoglobin/hematocrit 11.3 and 34.7, platelets 359. Granulocytes, 78% segs. PT/PTT 11.5 and 32.3. Sodium 134, potassium 4.1, chloride 92, CO2 29, anion gap 17, BUN 37, creatinine 8.2, GFR 8, glucose 147, calcium 9.3, alk phos 166. Chest x-ray was done, 09/06, which shows right-sided PICC line in good place, moderate cardiomegaly. IMPRESSION AND PLAN: 1. Status post right foot fourth toe amputation and debridement of the right foot ulcer. 2. Right foot toe gangrene and diabetic ulceration. 3. Peripheral vascular disease. 4. Status post right foot fourth digit gangrene with diabetes mellitus and peripheral vascular disease. 5. Status post irrigation and debridement of the diabetic and gangrene ulcer of the right foot. 6. Partial right foot fourth metatarsal amputation. 7. Status post right upper extremity PICC line placement. 8. Status post amputation of the right foot distal fourth and fifth metatarsal. 9. Morbid obesity with elevated body mass index. 10. Cardiomegaly. 11. Enterococcus faecalis and Stenotrophomonas maltophilia right foot toes diabetic foot ulceration and gangrene. 12. Insomnia. 13. Constipation. 14. Hypertension. 15. Diabetic neuropathy. 16. Hypovitaminosis D. 17. Insulin-requiring diabetes mellitus. 19. Hyperlipidemia. 20. Secondary hyperparathyroidism. Plan at this time, patient was advised by the mower sharpener to have the patient transferred to acute care floor for further management and postop care. Patient now will be transferred to the fifth floor. Patient has been ordered repeat labs.. Patient has been ordered daily PT/PTT. Patient has been ordered repeat CBC, CMP for the morning. Patient had a wound culture. CURRENT CONSULTATIONS: 1. Cardiology. 2. Infectious Disease. 3. Nephrology. 4. Podiatry. Patient has been ordered Cardiology, Infectious Disease, Nephrology and Podiatry consultation. CURRENT MEDICATIONS: 1. Benadryl 25 mg at bedtime p.r.n. 2. Colace 100 mg three times a day. 3. Cozaar 100 mg daily. 4. Cymbalta 60 mg daily. 5. Dilaudid 0.5 IV q. 15 minutes p.r.n. 6. Drisdol 50,000 units weekly. 7. Ecotrin 81 mg daily. 8. Folic acid 5 mg daily. 9. Patient is started on heparin drip, no bolus with heparin protocol medium dose. 10. Humulin R medium dose sliding scale coverage a.c. and at bedtime. 11. Lipitor 40 mg daily. 12. Meropenem 500 mg IV q. 12. 13. MiraLax 17 g twice a day. 14. Percocet 5/325 one to two tablets q. 4 hours p.r.n. 15. Protonix 20 mg twice a day. 16. Sensipar 30 mg daily. 17. Tylenol 650 q. 4 p.r.n. 18. Vancomycin 500 mg Wednesday, Wednesday and Wednesday. At present, patient will be admitted to acute care floor for further management and close followup by Podiatry, Infectious Disease and Nephrology. Patient will be continued on hemodialysis for the end-stage renal disease. Patient will be continued on above therapeutic intervention as dictated. Dictated and electronically signed, not read. Steve Rincon MD
== END 2017-09-07 09:22 | disposition short-term general hospital (02) | DRG 299 ==
LOC: TRCU 18:09
PROVIDERS: ADMIT Internal Medicine; ATTEND Internal Medicine
PROC: F07Z9FZ Gait Training/Functional Ambulation Treatment using Assistive, Adaptive, Supportive or Protective Equipment (ICD-10-PCS; principal; 2017-09-02)
PROC: F07L6YZ Therapeutic Exercise Treatment of Musculoskeletal System - Lower Back / Lower Extremity using Other Equipment (ICD-10-PCS; 2017-09-02)
PROC: 5A1D70Z Performance of Urinary Filtration, Intermittent, Less than 6 Hours Per Day (ICD-10-PCS; 2017-09-03)
PROC: F08Z4FZ Home Management Treatment using Assistive, Adaptive, Supportive or Protective Equipment (ICD-10-PCS; 2017-09-04)
PROC: 5A1D70Z Performance of Urinary Filtration, Intermittent, Less than 6 Hours Per Day (ICD-10-PCS; 2017-09-06)
DX: E11.52 Type 2 diabetes mellitus with diabetic peripheral angiopathy with gangrene (principal); N18.6 End stage renal disease; I13.2 Hypertensive heart and chronic kidney disease with heart failure and with stage 5 chronic kidney disease, or end stage renal disease; N25.81 Secondary hyperparathyroidism of renal origin; Z68.41 Body mass index [BMI] 40.0-44.9, adult; Z89.421 Acquired absence of other right toe(s); E11.22 Type 2 diabetes mellitus with diabetic chronic kidney disease; E11.621 Type 2 diabetes mellitus with foot ulcer; L97.519 Non-pressure chronic ulcer of other part of right foot with unspecified severity; E11.40 Type 2 diabetes mellitus with diabetic neuropathy, unspecified; E66.01 Morbid (severe) obesity due to excess calories; G47.00 Insomnia, unspecified; K59.00 Constipation, unspecified; E55.9 Vitamin D deficiency, unspecified; E78.5 Hyperlipidemia, unspecified; B95.2 Enterococcus as the cause of diseases classified elsewhere; E11.36 Type 2 diabetes mellitus with diabetic cataract; D63.1 Anemia in chronic kidney disease; R26.9 Unspecified abnormalities of gait and mobility; I89.0 Lymphedema, not elsewhere classified; E83.39 Other disorders of phosphorus metabolism; I25.10 Atherosclerotic heart disease of native coronary artery without angina pectoris; E11.65 Type 2 diabetes mellitus with hyperglycemia; I50.9 Heart failure, unspecified; E78.00 Pure hypercholesterolemia, unspecified; K29.70 Gastritis, unspecified, without bleeding; Z99.2 Dependence on renal dialysis; Z86.73 Personal history of transient ischemic attack (TIA), and cerebral infarction without residual deficits; Z79.4 Long term (current) use of insulin

== ENCOUNTER 2017-09-07 07:09 | Inpatient (IN) | payer MEDICARE ==
[2017-09-07] MEDS ORDERED: Bupivacaine 0.5% Inj(30mL) ONE (07:18)
[2017-09-07 08:11] LABS: CALCIUM 8.8 mg/dL (8.4-10.5)
--- NOTE | 2017-09-07 08:46 | PCM.SURG1 ---
Surgeon's Initial Post Op Note - Surgeon's Notes Surgeon: Dr. Schneider DPM Fringe Maker: Dr. Cleo HUSAIN PGY-1 Type of Anesthesia: IV Sedation, Local Anesthesia Administered By: Dr. Alejandro GOLDSTEIN Pre-Operative Diagnosis: right 4th gangrenous digit secondary to DM and PVD Operative Findings: see dictations. injectables: pre-op injection: 10 cc of .5% marcaine plain and, intra-op injection: 7 cc of .5% marcaine plain; 3-0 prolene Post-Operative Diagnosis: same Operation Performed: 1) irrigation and debridment of diabetic and gangrene ulcer of right foot. 2) partial 4th metatarsal amputation of infected right foot Specimen/Specimens Removed: 1. gangrenous tissue and bone. 2. wound culture Estimated Blood Loss: EBL {In ML}: 10 Blood Products Given: N/A Drains Used: No Drains Post-Op Condition: Good Date of Surgery/Procedure: 09/07/17 Time of Surgery/Procedure: 07:30
[2017-09-07] MEDS ORDERED: HYDROmorphone 0.5 mg/0.5 ml ISec IVP PRN (08:53)
[2017-09-07] MEDS ORDERED: Oxycodone/Acetaminophen 5/325 mg Tab PO PRN ×3 (08:53→15:45)
[2017-09-07] MEDS ORDERED: HYDROmorphone 0.5 mg/0.5 ml ISec ONE (08:56)
[2017-09-07] MEDS ORDERED: HYDROmorphone 0.5 mg/0.5 ml ISec IVP ONE (08:57)
--- NOTE | 2017-09-07 11:10 | RAD ---
PROCEDURE: Right Foot Radiographs. HISTORY: s/p right foot surgery COMPARISON: None. FINDINGS: BONES: Amputations have been performed at the level of the distal 4th and 5th metatarsals. JOINTS: Normal. SOFT TISSUES: Normal. OTHER FINDINGS: None. IMPRESSION: Amputations have been performed at the level of the distal 4th and 5th metatarsals.
[2017-09-07 13:50] VITALS: BMI 42.6
--- NOTE | 2017-09-07 14:36 | CP.PCM.DIS ---
Provider - Provider Date of Admission: 09/07/17 11:20 Attending physician: Steve Rincon MD Primary care physician: Steve Rincon MD Consults: ID - Dr. Pelaez Podiatry - Dr. Schneider Nephrology - Dr. Barth Time Spent in preparation of Discharge (in minutes): 45 Diagnosis - Discharge Diagnosis (1) Toe gangrene Status: Acute Priority: Medium (2) ESRD (end stage renal disease) on dialysis Status: Chronic Priority: Medium (3) HTN (hypertension) Status: Chronic Priority: Low Hospital Course - Lab Results Lab Results: Most Recent Lab Values Sodium 132 mmol/L (132-148) 09/07/17 07:23 Potassium 3.9 mmol/L (3.6-5.0) 09/07/17 07:23 Chloride 93 mmol/L (98-107) L 09/07/17 07:23 Carbon Dioxide 28 mmol/L (21-33) 09/07/17 07:23 Anion Gap 15 (10-20) 09/07/17 07:23 BUN 37 mg/dL (7-21) H 09/07/17 07:23 Creatinine 8.1 mg/dl (0.8-1.5) H* 09/07/17 07:23 Est GFR ( Amer) 8 09/07/17 07:23 Est GFR (Non-Af Amer) 7 09/07/17 07:23 Random Glucose 140 mg/dL (70-110) H 09/07/17 07:23 Calcium 8.8 mg/dL (8.4-10.5) 09/07/17 07:23 - Hospital Course Hospital Course: 66 year old male with PMH of ESRD on HD, history of CVA, HTN, cataracts, DM presented with right fourth toe gangrene. Patient underwent amputation of the right fourth toe. After surgery patient will be transferred to medical floors. Patient will continue to receive hemodialysis 3 times a week, with nephrology following. Patient has been followed by infectious disease who have been treating the patient with Merrem and intermittent Vancomycin. Patient will need [facility]. Patient will be admitted to the medicine floors for further observation. Patient seen and examined this morning. Patient doing well after procedure. Patient only complaining of mild pain. Discharge Exam - Head Exam Head Exam: ATRAUMATIC, NORMAL INSPECTION, NORMOCEPHALIC - ENT Exam ENT Exam: Mucous Membranes Moist, Normal Exam - Respiratory Exam Respiratory Exam: Decreased Breath Sounds, NORMAL BREATHING PATTERN - Cardiovascular Exam Cardiovascular Exam: RRR, +S1, +S2 - GI/Abdominal Exam GI & Abdominal Exam: Normal Bowel Sounds, Soft. absent: Tenderness - Extremities Exam Extremities exam: pedal edema (B/l lower extremites) - Neurological Exam Neurological exam: Alert, Oriented x3 - Psychiatric Exam Psychiatric exam: Normal Affect, Normal Mood - Skin Skin Exam: Dry, Normal Color, Warm Discharge Plan - Follow Up Plan Condition: GOOD Disposition: REHAB FACILITY/REHAB UNIT Referrals: Steve Rincon MD [Primary Care Provider] -
[2017-09-07] MEDS: Ergocalciferol 50,000 Intl Units Cap PO SCH (16:00)
[2017-09-07] MEDS: Insulin Reg-MEDIUM-Coverage SC SCH (16:00)
[2017-09-07] MEDS: Pantoprazole 20 mg EC Tab PO SCH (16:00)
[2017-09-07 16:12] LABS: BASO # 0.02 K/mm3 (0.0-2.0); BASO % 0.2 % (0.0-3.0); EOS # 0.4 (0.0-0.7); GRAN # 9.94 (1.4-6.5); HEMOGLOBIN 10.3 g/dL (14.0-18.0); LYMPH # 1.7 (1.2-3.4); MEAN CELL VOLUME 84.9 fl (80.0-105.0); MEAN CORPUSCULAR HEMOGLOBIN 27.3 pg (25.0-35.0); MEAN CORPUSCULAR HGB CONC 32.2 g/dl (31.0-37.0); MEAN PLATELET VOLUME 9.9 fl (7.0-11.0); MONO # 0.9 (0.1-0.6); MONO % 6.8 % (1.0-6.0); RBC 3.77 10^6/uL (3.5-6.1); RED CELL DISTRIBUTION WIDTH 16.7 % (11.5-14.5); WHITE BLOOD COUNT 12.9 10^3/ul (4.5-11.0)
[2017-09-07] MEDS: POLYETHYLENE GLYCOL 3350 17 GM/Dose PACKET PO SCH (18:07)
[2017-09-07] MEDS: Heparin25000 units/250ml 1/2NS 25,000 UNITS/250 ML BAG IV PRN (21:20)
[2017-09-07] MEDS ORDERED: Meropenem 500 MG in Sodium Chloride 0.9% 50 ML IVPB SCH (22:00)
[2017-09-08] MEDS: Insulin Reg-MEDIUM-Coverage SC SCH ×5 (01:30→22:00)
--- NOTE | 2017-09-08 03:02 | CON ---
DATE: 09/07/[address] for Dr[address] Steve Rincon. REFERRING MD: Dr. Rincon. REASON FOR CONSULTATION: To provide dialysis services for the patient who is status post toe amputations, who was transferred back from the TCU for another procedure. HISTORY OF PRESENT ILLNESS: The patient is a 66-year-old black male, known to us from both inpatient and outpatient care. The patient has end-stage renal disease. He currently dialyzes Wednesday, Wednesday, Wednesday at [facility]; history of NIDDM; hypertension; past history of CVA; history of ASHD; history of peripheral vascular disease; history of secondary hyperparathyroidism. The patient had his right fifth toe amputated back in late August. He was in the TCU for several days and was sent back to acute care because of gangrenous changes in his right fourth toe. He is status post amputation of his right fourth toe today. The patient is currently seen in dialysis, receiving the makeup of yesterday's treatment. We are asked to evaluate the patient and to provide dialysis services. PAST MEDICAL HISTORY: Significant for end-stage renal disease, history of NIDDM, hypertension, CVA, history of ASHD, history of valvular heart disease, aortic stenosis, aortic insufficiency, mitral stenosis, tricuspid regurgitation. History of a recent CVA, history of peripheral vascular disease, history of secondary hyperparathyroidism and history of anemia secondary to chronic kidney disease. MEDICATIONS: Include that of Benadryl, Colace, losartan, Cymbalta, Dilaudid, vitamin D, Ecotrin, folic acid, insulin, Lipitor, meropenem, MiraLax, Percocet p.r.n., Protonix, Sensipar, Tylenol p.r.n. and oral vancomycin. ALLERGIES: NO KNOWN ALLERGIES TO MEDICATIONS. SOCIAL HISTORY: No history of cigarette smoking. The patient no longer drinks alcohol. The patient is retired. FAMILY HISTORY: As per old charts and noncontributory. REVIEW OF SYSTEMS: 10+ systems reviewed with the patient. All negative except for what is noted above. PHYSICAL EXAMINATION: GENERAL: The patient is currently seen in dialysis. VITAL SIGNS: Blood pressure is 150/60. Temperature 98.7, respiratory rate 20 with a pulse of 67, pulse ox is 99%. HEENT: Shows him to be normocephalic, atraumatic. Conjunctivae are pale. Sclerae are nonicteric. NECK: Supple. No neck vein distention. CHEST: Clear to auscultation and percussion. No rales. No rhonchi or wheezing. CARDIOVASCULAR: Shows a regular rate and rhythm. Positive aortic stenosis, aortic insufficiency, mitral stenosis and tricuspid regurgitation. No S3. No S4. No rub. ABDOMEN: Soft. Obese. Minimal distention. Bowel sounds normal. No rebound, guarding or masses. EXTREMITIES: Show dressing over his right lower extremity with blood leakage in the area of the surgical site. Diminished lower extremity pulses bilaterally. Cannulated AV fistula for dialysis. NEUROLOGIC: Shows him to be alert, oriented with no gross focal motor or sensory deficits. LABORATORY DATA AND IMAGING: Foot x-ray done today shows amputations at the level of the distal fourth and fifth metatarsal. Chest x-ray Done yesterday shows a PICC line on the right side. No acute pulmonary disease. Labs: CBC, white blood cell count 12.9, hemoglobin 10.3 with platelet count of 323,000. Coags, PT and INR are normal. PTT is normal. Chemistries today showed normal electrolytes. BUN 37 with a creatinine of 8.1. Glucose is 140. Calcium is 8.8 with a phosphorus of 3.2 and a magnesium level of 2.1. Albumin level was 3.9. Microbiology: Previous wound cultures are positive for Enterococcus and Stenotrophomonas. ASSESSMENT: 1. End-stage renal disease. The patient will continue routine dialysis. Today, he is having a makeup of yesterday's shortened treatment. 2. History of [id number] diabetes mellitus. The patient will continue sliding scale insulin. 3. History of hypertension. Blood pressure control is acceptable on current medications and cardiac medications. 4. History of atherosclerotic heart disease with valvular heart disease, currently stable. 5. Past history of recent cerebrovascular accident, stable. 6. History of peripheral vascular disease, stable. 7. Status post total amputations right foot fourth and fifth toe. 8. Secondary hyperparathyroidism. The patient is on Sensipar. Binder therapy can be held because of decreased p.o. intake and a phosphorus level of 3.2. This can be restarted on an as-needed basis. 9. History of anemia. Continue Aranesp on dialysis. We will check iron levels with the patient's dialysis and supplement accordingly. PLAN: 1. Continue local wound care post amputation. 2. Continue routine dialysis Wednesday, Wednesday, Wednesday. 3. Continue course of IV antibiotic therapy, status post amputations. 4. Continue to monitor labs with dialysis. 5. Continue renal diet. 6. Continue all present blood pressure and cardiac meds. Thank you for letting me partake and share in the care of our mutual patient. Phillip Barth MD
[2017-09-08 03:49] LABS: INR 1.05 (0.93-1.08); PARTIAL THROMBOPLASTIN TIME 51.3 Seconds (25.1-36.5)
[2017-09-08] MEDS: Pantoprazole 20 mg EC Tab PO SCH ×2 (05:57→14:38)
[2017-09-08] MEDS: POLYETHYLENE GLYCOL 3350 17 GM/Dose PACKET PO SCH ×2 (09:20→17:57)
[2017-09-08] MEDS ORDERED: [UNRECOGNIZED DRUG - OTHER] IVPB SCH (10:00)
[2017-09-08] MEDS ORDERED: VANCOMYCIN IVPB SCH (10:00)
[2017-09-08] MEDS ORDERED: SOD CHLORIDE IVPB SCH (10:00)
--- NOTE | 2017-09-08 11:57 | CP.PCM.PN ---
Subjective - Date & Time of Evaluation Date of Evaluation: 09/08/17 Time of Evaluation: 14:00 - Subjective Subjective: Podiatry Progress Note- Dr. Schneider 66 y.o male seen 1 day s/p irrigation and debridment of diabetic and gangrenous ulcer of right foot and 2) partial 4th metatarsal amputation of infected right foot. Patient is seen resting comfortably in bed, in NAD, and AA0x3. Patient reports that he is doing well. Dressing is clean and intact with sangious strikethrough to the dressing. Patient denies acute overnight events. Denies nausea, fever, shortness of breath, chest pain, or chills Objective - Vital Signs/Intake and Output Vital Signs (last 24 hours): Temp Pulse Resp BP Pulse Ox 98.3 F 71 18 152/71 H 97 09/08/17 08:12 09/08/17 08:12 09/08/17 08:12 09/08/17 08:12 09/08/17 08:12 Intake and Output: 09/08/17 09/08/17 06:59 18:59 Intake Total 780 Output Total 0 Balance 780 - Medications Medications: Current Medications Acetaminophen (Tylenol 325mg Tab) 325 mg PO Q4H PRN PRN Reason: Pain, Mild (1-3) Acetaminophen (Tylenol 325mg Tab) 650 mg PO Q4H PRN PRN Reason: Pain, moderate (4-7) Last Admin: 09/08/17 08:55 Dose: 650 mg Aspirin (Ecotrin) 81 mg PO DAILY [facility] Last Admin: 09/08/17 09:20 Dose: 81 mg Atorvastatin Calcium (Lipitor) 40 mg PO DIN [facility] Last Admin: 09/07/17 18:07 Dose: 40 mg Cinacalcet (Sensipar) 30 mg PO DAILY [facility] Last Admin: 09/08/17 09:20 Dose: 30 mg Diphenhydramine HCl (Benadryl) 25 mg PO HS PRN PRN Reason: Insomnia Last Admin: 09/07/17 22:40 Dose: 25 mg Docusate Sodium (Colace) 100 mg PO TID [facility] Last Admin: 09/08/17 09:20 Dose: 100 mg Duloxetine HCl (Cymbalta) 60 mg PO DAILY [facility] Last Admin: 09/08/17 09:20 Dose: 60 mg Ergocalciferol (Drisdol 50,000 Intl Units Cap) 1 cap PO Q7D [facility] Last Admin: 09/07/17 16:00 Dose: Not Given Folic Acid (Folic Acid) 5 mg PO DAILY [facility] Last Admin: 09/08/17 09:24 Dose: 5 mg Hydromorphone HCl (Dilaudid) 0.5 mg IVP Q15MIN PRN PRN Reason: Pain, moderate (4-7) Vancomycin HCl (Vancomycin 500mg In Ns) 500 mg in 100 mls @ 100 mls/hr [facility] Heparin Sodium/Sodium Chloride (Heparin 07572 Units/250ml 1/2 Normal Saline) 25 ,000 units in 250 mls @ 14.37 mls/hr IV .[id number] PRN; Protocol; 12 UNITS/KG/HR PRN Reason: ADJUST RATE PER PROTOCOL Last Admin: 09/07/17 21:20 Dose: 12 units/kg/hr, 14.37 mls/hr Meropenem 500 mg/ Sodium (Chloride) 50 mls @ 100 mls/hr IVPB Q24H [facility] PRN Reason: Protocol Stop: 09/17/17 18:29 Insulin Human Regular (Humulin R Med) 0 units SC ACHS [facility] PRN Reason: Protocol Last Admin: 09/08/17 08:34 Dose: Not Given Losartan Potassium (Cozaar) 100 mg PO DAILY [facility] Last Admin: 09/08/17 09:20 Dose: 100 mg Oxycodone/Acetaminophen (Percocet 5/325 Mg Tab) 2 tab PO Q4H PRN PRN Reason: Pain, severe (8-10) Stop: 09/10/17 08:54 Pantoprazole Sodium (Protonix Ec Tab) 20 mg PO 0600,1600 [facility] Last Admin: 09/08/17 05:57 Dose: 20 mg Polyethylene Glycol (Miralax) 17 gm PO BID [facility] Last Admin: 09/08/17 09:20 Dose: 17 gm Warfarin Sodium (Coumadin) 4 mg PO 1800 [facility] PRN Reason: Protocol - Labs Labs: 09/07/17 15:30 09/07/17 07:23 PT 12.0 SECONDS (9.4-12.5) 09/08/17 03:20 INR 1.05 (0.93-1.08) 09/08/17 03:20 APTT 51.3 Seconds (25.1-36.5) H 09/08/17 03:20 - Constitutional Appears: Well, Non-toxic, No Acute Distress - Extremities Exam Extremities Exam: absent: Calf Tenderness Additional comments: Right foot focused. Dressing c/d/i with moderate sanguinous strikethrough to outer dressing layer. No calf tenderness with palpation. DERM: Full thickness surgical wound noted to lateral aspect of foot measuring 6 cm x 3 cm with mixed wound bed(80% granular, 10% fibrotic). Minor serous sangious drainage noted, no mal-odor noted, no purulence. No erythema. Hallux distal tuft ischemic change noted. 2nd and 3rd digit with increase discoloration noted. VASC: DP pulses palpable 2/4. PT pulses weakly palpable 1/4. CFT unable to assess digits 1-4. Temperature gradient warm to warm. Nonpitting edema noted to forefoot, +1 pitting edema noted to right leg. NEURO: Gross sensation diminished. ORTHO: 4th and 5th partial metatarsal amputation. Tenderness to palpation to entire right foot. No pain on palpation digits 1-3. - Neurological Exam Neurological Exam: Alert, Awake, Oriented x3 - Psychiatric Exam Psychiatric exam: Normal Affect, Normal Mood Assessment and Plan - Assessment and Plan (Free Text) Assessment: 66 y.o male seen 1 day s/p irrigation and debridment of diabetic and gangrenous ulcer of right foot and 2) partial 4th metatarsal amputation of infected right foot Plan: Patient examined and evaluated Discussed the plan in detail with attending Dr. Schneider Labs, vitals, chart reviewed Surgical site cleansed with betadine and saline solution, packed with idoforom, adaptatic, dsd and kelix with VERY LIGHT FELICIA Reinforce as needed if bleed through Retention suture was cut and removed from the surgical site. Patient to remain NWB. Limited to WBAT to heels only for transfers to bathroom or on chair/bed for now
--- NOTE | 2017-09-08 12:44 | PN ---
DATE: 09/08/2017 SUBJECTIVE: The patient is seen sitting in chair. He is awake. He is alert. He is comfortable. He is status post amputation of the right fourth toe, postop day #1. PHYSICAL EXAMINATION: GENERAL: Obese elderly male, sitting in chair. VITAL SIGNS: Blood pressure 152/71, heart rate 71, respiratory rate 18, temperature 98.3. HEENT: Normocephalic, atraumatic. Neck: Supple, no JVD. LUNGS: Bilateral equal air entry, no rales. CARDIAC: S1 and S2, regular rate and rhythm, no murmur, no rub. ABDOMEN: Obese, distended, soft, nontender, bowel sounds present. EXTREMITIES: Dressing of the right foot. LABORATORY DATA: No new labs today. CURRENT MEDICATIONS: List reviewed. ASSESSMENT: 1. Amputation of the right fourth toe, postop day #1. 2. Peripheral vascular disease. 3. [id number] diabetes mellitus. 4. Hypertension. 5. End-stage renal disease. 6. Anemia of chronic disease. PLAN: 1. Dialysis today. 2. Continue antibiotics. 3. Wound care. 4. Fingersticks and insulin coverage. 5. Continue antihypertensives. Svetlana Hillman MD
[2017-09-08 13:56] LABS: ALB/GLOB RATIO 1.1 (1.1-1.8); ALBUMIN 3.7 g/dL (3.0-4.8); CALCIUM 8.9 mg/dL (8.4-10.5)
[2017-09-08 14:14] LABS: BASO # 0.03 K/mm3 (0.0-2.0); BASO % 0.2 % (0.0-3.0); EOS # 0.5 (0.0-0.7); EOS % 3.3 % (1.5-5.0); GRAN # 9.52 (1.4-6.5); GRAN % 70.1 % (50.0-68.0); HEMOGLOBIN 10.3 g/dL (14.0-18.0); LYMPH # 2.5 (1.2-3.4); LYMPH % 18.2 % (22.0-35.0); MEAN CELL VOLUME 85.3 fl (80.0-105.0); MEAN CORPUSCULAR HEMOGLOBIN 27.5 pg (25.0-35.0); MEAN CORPUSCULAR HGB CONC 32.3 g/dl (31.0-37.0); MONO # 1.1 (0.1-0.6); MONO % 8.2 % (1.0-6.0); RBC 3.74 10^6/uL (3.5-6.1); WHITE BLOOD COUNT 13.6 10^3/ul (4.5-11.0)
[2017-09-08 14:19] LABS: INR 1.08 (0.93-1.08); PARTIAL THROMBOPLASTIN TIME 68.4 Seconds (25.1-36.5); PROTHROMBIN TIME 12.3 SECONDS (9.4-12.5)
[2017-09-08] MEDS: Heparin25000 units/250ml 1/2NS 25,000 UNITS/250 ML BAG IV PRN (16:09)
[2017-09-08] MEDS: Meropenem 500 MG in Sodium Chloride 0.9% 50 ML IVPB SCH (17:35)
[2017-09-08] MEDS: Vancomycin 500mg in NS 500 MG/100 ML BAG IVPB SCH (17:58)
--- NOTE | 2017-09-08 22:11 | HP ---
HISTORY OF PRESENT ILLNESS: The patient is now admitted to 576, bed 2. The patient was discharged from Transitional Care Unit after the patient was admitted to acute care floor from 08/24 to 08/31. Then, the patient was admitted to Transitional Care Unit from 08/31 to 09/07. Then, the patient underwent surgery on the same day surgery on 09/07 and the patient is now admitted to medical floor from 09/07/2017. Please refer to the detailed history and physical examination from multiple as mentioned and the most recent admission from 08/24/2017 to 08/31/2017 and 08/31/2017 to 09/07/2017. The patient is today seen in room 576, bed 2. The patient is seen lying in the bed. The patient is watching TV and talking on the phone. Overnight nurse's notes were reviewed. No adverse events were documented. The patient slept well overnight. The patient does complain of some right foot pain. The patient is nonweightbearing on the right foot. HISTORY OF PRESENT ILLNESS: The patient is seen lying in the bed. Patient is alert, awake, responsive. The patient has been transferred from acute care to Transitional Care Unit for further management and continuation of the IV antibiotic and wound care. The patient is now admitted to Transitional Care Unit. For further details of the patient's past medical history and other details, please refer to the history and physical examination dictated on 08/25/2017 and discharge summary dictated on 08/31/2017. HISTORY OF PRESENT ILLNESS: The patient was seen. The patient was seen by Dr. Schneider today for recurrent persistent right foot right toe pain. The patient was seen and evaluated by Dr. Schneider in the office. The patient was sent to the Emergency Room for evaluation of right fifth .toe gangrene and severe pain. The patient was seen and evaluated in the Emergency Room by ER physician, Dr. Vickers. The patient presented to the Emergency Room after being referred by Dr. Mayito Schneider for evaluation of the right fifth toe gangrene and the patient has been having increasing pain of the right foot. REVIEW OF SYSTEMS: Thirteen system review was done, pertinent positive negative as dictated above. CODE STATUS: Full code. LIVING WILL AND ADVANCE DIRECTIVE: None. ALLERGIES: None. HEIGHT: 5 feet 6 inches. BODY WEIGHT: 370. BODY MASS INDEX: 59 to 60. HOME MEDICATIONS 1. Ultram 50 mg t.i.d. p.r.n. 2. Coumadin 2 mg daily. 3. Protonix 40 mg daily. 4. Cozaar 100 mg daily. 5. Folic acid 5 mg daily. 6. Drisdol 50,000 units weekly. 7. Cymbalta 60 mg daily. 8. Sensipar 30 mg daily. 9. PhosLo 667 mg 2 tablets 3 times a day. 10. Lipitor 80 mg daily. 11. Ecotrin 81 mg daily. 12. Tylenol 650 mg q. 6h. p.r.n. SOCIAL HISTORY: Negative for smoking, alcohol or drug use. FAMILY HISTORY: Positive for hypertension, diabetes. OCCUPATIONAL HISTORY: Disabled. The patient's last discharge home medications; Coumadin is changed to 2 mg daily. The patient is on Cozaar 100 mg daily, Drisdol 50,000 units weekly, Cymbalta started recently 60 mg daily, aspirin 81 mg daily, folic acid 5 mg daily, Lipitor 80 mg daily, PhosLo 667 mg 2 capsules three times a day, Protonix 40 mg daily, Sensipar 30 mg daily, Tylenol 650 mg q. 6 p.r.n., Ultram 50 mg t.i.d. p.r.n. PAST MEDICAL AND SURGICAL HISTORY: The patient's past medical and surgical history is significant for history of end-stage renal disease, hemodialysis dependent three times a week via the left upper extremity AV fistula; history of morbid obesity; history of lymphedema of the bilateral lower extremity; history of gait dysfunction; history of morbid obesity; history of coronary artery disease; history of acute cerebral infarct, recently history of Coumadin-requiring cerebral infarct; history of hypertension; history of hypovitaminosis D; history of pneumonia; history of diabetic neuropathy; history of diabetic foot pain; history of dyslipidemia. The patient's past medical history is also significant for history of chronic lacunar infarct of the bilateral basal ganglia, right centrum semiovale and left neelima; history of small vessel ischemic disease of the brain; history of multiple acute infarct involving the right parietal, right frontal and left temporal lobe with punctate appearance. The patient's past medical history is significant for hypertensive cardiovascular disease with history of pulmonary hypertension with right ventricular systolic pressure of 46 mmHg, history of history of severe valvular aortic stenosis, history of mild aortic regurgitation, history of moderate mitral valve with history of moderate mitral valve stenosis, history of tricuspid regurgitation, history of concentric left ventricular hypertrophy, history of diffuse atherosclerosis of the coronary arteries with borderline 50% critical stenosed lesions of the right coronary artery, history of chronic anemia, history of insulin-requiring diabetes mellitus, history of dietary and medication noncompliance, history of multiple cardiac catheterization, hyperlipidemia, hypercholesteremia, history of cataract surgery, history of diabetic retinopathy, history of former alcohol use. 1. Right foot fifth toe gangrene versus diabetic foot ulceration versus questionable underlying osteomyelitis. 2. Right foot fifth toe pain secondary to above. 3. Questionable possible severe diabetic neuropathy. 4. Normocytic anemia. 5. Elevated erythrocyte sedimentation rate of 114. 6. Coumadin-requiring atrial fibrillation with severe aortic valvular stenosis and mitral stenosis. 7. End-stage renal disease, hemodialysis dependent via the left upper extremity arteriovenous fistula. 8. Severe bilateral lower extremity lymphedema. 9. Elevated C-reactive protein of greater than 15. 10. Insulin-requiring diabetes mellitus. 11. History of diabetes. 12. History of hypertension. 13. History of dyslipidemia. 14. History of hypovitaminosis D. 15. History of diabetic neuropathy. 16. History of hyperlipidemia. 17. History of gastroesophageal reflux. 18. History of right foot pain. 1. Multiple acute cerebral infarct, probably multiple acute embolic cerebral infarct. 2. Severe aortic stenosis. 3. Left upper extremity arteriovenous fistula bleeding. 4. Multiple acute embolic cerebral infarct symptomatic with symptoms of dizziness, gait dysfunction. 5. End-stage renal disease, hemodialysis dependent via the left upper extremity arteriovenous fistula three times a week. 6. Anemia. 7. Insulin-requiring diabetes mellitus. 8. History of coronary artery disease. 9. Gait dysfunction. 10. Morbid obesity. 11. Bilateral lower extremity lymphedema. 12. Hypertension. 13. Secondary hyperparathyroidism. 14. Dyslipidemia. 1. Left arteriovenous fistula site bleeding, probably secondary to heparin anticoagulation. 2. Multiple acute cerebral infarct. 3. Multiple acute embolic cerebral infarct with symptoms of dizziness, weakness and gait dysfunction. 4. End-stage renal disease, hemodialysis dependent. 5. Lymphedema of the lower extremity. 6. Normocytic anemia. 7. Insulin-requiring diabetes mellitus with hyperglycemia and hemoglobin A1c of 7.8. 8. Hyperphosphatemia. 9. Hypovitaminosis D. 10. Hypertriglyceridemia. 11. Hypercholesterolemia. 12. Elevated LDL. 13. Diffuse bilateral slowing with abnormal EEG consistent with bilateral cerebral dysfunction. 14. Gait dysfunction. 15. Left upper extremity arteriovenous fistula site bleeding secondary to heparin anticoagulation. 1. Acute cerebral infarct symptomatic with symptoms of dizziness and gait dysfunction. 2. Acute embolic multiple cerebral infarct. 3. End-stage renal disease, hemodialysis dependent three times a week via left upper extremity AV fistula. 4. Embolic acute cerebrovascular accident. 5. Severe to critical aortic stenosis. 6. Abnormal EEG with presence of diffuse slowing consistent with mild bilateral cerebral dysfunction. 7. Hypertension. 8. Transient hypoxemia. 9. Normocytic anemia. 10. Insulin-requiring diabetes mellitus, uncontrolled with hemoglobin A1c of 7.8. 11. Hypovitaminosis D. 12. Hypertriglyceridemia, hypercholesteremia with elevated LDL and decreased HDL. 13. Gait dysfunction. 14. Deconditioning. 15. Bilateral lower extremity lymphedema. 16. Dyslipidemia. 17. Secondary hyperparathyroidism. 1. Multiple acute infarcts, dominant 3-mm infarct in the right parietal lobe with multiple acute smaller infarcts in the right parietal, right frontal, and left temporal lobes. 2. Gait dysfunction. 3. Dizziness. 4. Right parietal lobe 3.5-cm acute infarct. 5. Multiple acute smaller infarcts involving the right parietal lobe, right frontal lobe, left temporal lobe with punctate appearance. 6. Bilateral basal ganglia right centrum semiovale and left pontine multiple old chronic lacunar infarcts. 7. Chronic small vessel ischemic disease of the brain. 8. Left mastoid air cell fluid, questionable mastoiditis. 9. Left ventricular ejection fraction of 60%. 10. Severe valvular aortic stenosis. 11. Pulmonary arterial hypertension with right ventricular systolic pressure of 46 mmHg. 12. Concentric left ventricular atrophy. 13. Moderately dilated left atrium. 14. Calcified aortic valve with decreased opening. 15. Mild aortic regurgitation. 16. Severe valvular aortic stenosis. 17. Trace mitral regurgitation. 18. Moderate mitral stenosis. 19. Deconditioning. 20. Gait dysfunction. 21. Lymphedema of the lower extremity. 22. End-stage renal disease, hemodialysis dependent three times a week via the left upper extremity arteriovenous fistula. 23. Diffuse slowing on the consistent with bilateral cerebral dysfunction. 24. Insulin-requiring diabetes mellitus with hyperglycemia and hemoglobin A1c of 7.8. 25. History of hypertension. 26. Normocytic anemia. 27. Secondary hyperparathyroidism. 28. Uncontrolled insulin-requiring diabetes mellitus with hemoglobin A1c of 7.8. 29. Hypercholesteremia, hypertriglyceridemia with elevated high density lipoprotein and decreased low density lipoprotein. 30. Hypovitaminosis D. 1. Multiple acute brain infarct, probably embolic with right parietal lobe 3-cm dominant infarct and multiple acute infarct in the right parietal, right frontal and left temporal lobes. 2. Left internal carotid artery cavernous and supraclinoid segment stenosis. 3. Renal osteodystrophy. 4. Bilateral cerebral dysfunction. 5. Headache, dizziness, weakness and possible gait dysfunction. 6. Morbid obesity with elevated body mass index of 60. 7. Bilateral lower extremity lymphedema. 8. Chronic venous stasis of the lower extremity. 9. Normocytic anemia. 10. Insulin-requiring diabetes mellitus with hyperglycemia and hemoglobin A1c of 7.8. 11. Hyperglycemia. 12. Hypovitaminosis D. 13. Hypertriglyceridemia, hypercholesteremia with decreased HDL. 14. History of poor compliance. 15. Left ventricular ejection fraction of 60%. 16. Pulmonary arterial hypertension with right ventricular systolic pressure of 46 mmHg 17. Moderate concentric left ventricular hypertrophy. 18. Moderately dilated left atrium. 19. Calcified aortic valve with decreased opening and mild aortic regurgitation. 20. Severe valvular aortic stenosis. 21. Trace mitral regurgitation. 22. Moderate mitral stenosis. 23. Tricuspid regurgitation with right ventricular systolic pressure of 46 mmHg and pulmonary arterial hypertension. 24. Left internal carotid artery narrowing and irregularities of the cavernous and supraclinoid segment compatible with stenosis. 25. Calcified plaque of the left internal carotid artery cavernous and supraclinoid segment. 26. Nonvisualized left anterior cerebral artery. 27. Left lower lobe lingular atelectasis and scarring. 28. Right lung noncalcified 3-mm pulmonary nodule. 29. Cardiomegaly. 30. Bilateral gynecomastia. 31. Left subclavian vein stenting. 32. Possible chronic occlusion of the right brachiocephalic vein. 33. Pulmonary hypertension. 34. Mediastinal lymphadenopathy. 35. Cholelithiasis. 36. Renal osteodystrophy with diffusely dense appearance of the bones and multiple vertebral endplate lucencies and degenerative Schmorl node. 37. Pulmonary nodule. 38. Bilateral 20% to 39% proximal internal carotid artery stenosis. 39. Multiple acute infarct involving the cortex and subcortical white matter and a dominant acute infarct in the right parietal lobe, 3.5 cm, with multiple smaller acute infarct of the right parietal lobe, right frontal lobe and left temporal lobe with punctate appearance. 40. Bilateral basal ganglia, multiple small old chronic lacunar infarct of the bilateral basal ganglia, right centrum semiovale and left neelima area. 41. Chronic microvascular ischemic disease of the brain throughout the brain white matter bilaterally. 42. Left mastoid air cell fluid. 43. Left lower lobe airspace disease, questionable atelectasis or pneumonia. 44. Chronic microangiopathic changes of the brain. 45. Unchanged mid occipital soft tissue swelling. 46. End-stage renal disease, hemodialysis dependent three times a week with left upper extremity arteriovenous fistula. PHYSICAL EXAMINATION GENERAL: The patient was seen in stretcher #11 and also in the radiology section, the patient is seen lying in the bed. VITAL SIGNS: T max is 97.6; heart rate 65, 64, 69; blood pressure is 151/62 and 148/73, respirations 18, O2 saturation is 96-98%. HEENT: Head examination, normocephalic and atraumatic. HEENT examination shows pinkish pale conjunctivae. Anicteric sclerae. No oropharyngeal lesion. No neck rigidity. CHEST: Kyphosis. LUNGS: Examination shows decreased breath sound at the bases. CARDIOVASCULAR: S1, S2. Regular rhythm. Positive systolic murmur, right second intercostal space, left second intercostal space, left sternal border. Positive systolic murmur. ABDOMEN: Protuberant, morbidly obese. No hepatosplenomegaly palpated. GENITALIA: Male. RECTAL: Examination is deferred. EXTREMITIES: Show positive left upper extremity AV fistula, positive thrill. Positive right foot fifth toe skin breakdown noted and tender to touch. Positive lymphedema of the bilateral lower extremity noted. MUSCULOSKELETAL: Examination shows a body mass index of 60. NEUROLOGIC: The patient is alert, awake, oriented x3. Cranial nerves II through XII intact. Gait examination could not be tested. MUSCULOSKELETAL: ____. PSYCHIATRIC: Examination is negative. DIAGNOSTICS: Hemoglobin/hematocrit 10.3/ , platelets 304,000. ESR is greater than 114. PT/PTT 24.1/41.6, INR 2.08. Chemistry is significant for BUN 29, creatinine 7.3, glucose 147. C-reactive protein greater than 15. LFTs are normal. Wound cultures of the right toe was done, results are pending. The patient had x-rays of the feet and ultrasound; arterial venous Doppler done, results pending. The patient was seen in the Emergency Room by Dr. Vickers. The patient was given morphine 4 mg. The patient was given vancomycin 1 g and Zosyn 3.375 g and the patient was advised to be admitted. IMPRESSION AND PLAN: A 66-year-old male with recent onset of right foot fifth toe pain and skin breakdown, seen by Podiatry today for possible gangrene of the right fifth toe. PLAN: At this time, the patient is to be admitted to [facility]. Blood cultures and right foot wound cultures ordered. CONSULTATIONS 1. Podiatry 2. Infectious Disease. 3. Vascular. 4. Interventional Radiology. Repeat CBC, CMP, LFT, magnesium, PT/PTT ordered. Blood and wound cultures ordered. X-ray of the right foot and the arterial venous Doppler ordered. The patient has been started on Colace 100 mg three times a day, Cozaar 100 mg daily, Cymbalta 60 mg daily, Drisdol 50,000 units weekly, Ecotrin 81 mg daily, folic acid 5 mg daily, Humalog medium dose sliding scale coverage before meals, Lipitor 80 mg daily, morphine 2 mg IV q. 6 hours p.r.n., PhosLo 1334 mg three times a day, Protonix 40 mg daily, Senokot 17.2 mg at bedtime,. Sensipar 30 mg daily, Tylenol 650 mg q. 6h. p.r.n., Teflaro 400 mg IV q. 12. The patient received vancomycin 1 g IV in the emergency room, Zosyn 3.375 g IV stat. The patient was ordered arterial venous Doppler, MRI of the right foot ordered for evaluation of the gangrene and osteomyelitis. Renal diet ordered. The patient has been ordered out of bed to chair, physical therapy, ambulation therapy . The patient has been ordered Teflaro. The patient will be referred for diabetic education evaluation. Procalcitonin level has been ordered. The patient will be ordered to elevate bilateral lower extremity out of bed.. SCDs and TEDs and daily weights ordered. The patient's case referred for physical therapy, occupational therapy. Out of bed ordered. The patient at present was seen in the Emergency Room and Radiology area. The patient has been ordered wound cultures. Procalcitonin level on order has been ordered.. The patient will be admitted. We will await further recommendation for Interventional Radiology, Nephrology, Podiatry and infectious disease. The patient was explained about the details of his medical condition, need for hospitalization, need for further diagnostic therapeutic intervention, need for further treatment, and need for IV antibiotic treatment, etc.; all details discussed and explained to the patient at length and all questions concerned answered. He acknowledged understanding. PHYSICAL EXAMINATION: GENERAL: The patient is seen lying in the bed in room 315, bed 1. VITAL SIGNS: T-max is 98.1, pulse 72, blood pressure 151/73, respirations 18, O2 sat 99%. HEENT: Head examination normocephalic, atraumatic. HEENT examination shows pinkish pale conjunctivae. Anicteric sclerae. No oropharyngeal lesion. No neck rigidity. CHEST: Kyphosis. LUNGS: Shows decreased breath sound at the left base. No rales, crackles or wheezing. CARDIOVASCULAR: S1 and S2. Regular rhythm. Positive systolic murmur, right second intercostal space left sternal border. ABDOMEN: Obese, protuberant. Abdomen is distended, but positive bowel sound. No hepatosplenomegaly was palpable. EXTREMITIES: Left upper extremity AV fistula noted. Positive thrill noted. Left extremity shows positive SCDs, positive lymphedema of the bilateral lower extremity noted, right more than the left. GENITALIA: Male. RECTAL: Deferred. MUSCULOSKELETAL: Shows a body mass index of 43 today. NEUROLOGIC: The patient is alert, awake, oriented x3. Cranial nerves II through XII grossly intact. Gait examination not tested. DIAGNOSTICS: On 09/01/2017, WBC 11.3, hemoglobin/hematocrit 9.5/29.7, platelet 270, granulocytes 73. PT 15.9, INR 1.37, PTT 66.4. Sodium 138, potassium 3.6, chloride 99, CO2 of 27, anion gap 15, BUN 23, creatinine 5.8, GFR 12, glucose 113, calcium is 7.8, phosphorus 1.7, magnesium 1.7, albumin 2.8. Cholesterol is 88, triglyceride 103, LDL 41, HDL 28. Right foot fifth toe wound cultures are growing Enterococcus faecalis, which is vancomycin sensitive and sensitive to Zyvox, penicillin, Tygacil, and vancomycin. The patient received 2 units of PRBC on hemodialysis yesterday. IMPRESSION AND PLAN: 1. Deconditioning. 2. Gait dysfunction. 3. Right foot fifth digit metatarsal amputation with antibiotic-eluting beads and amputation of the right foot fifth toe. 4. Hypertension. 5. Bilateral lower extremity venous stasis and lymphedema. 6. Leukocytosis with granulocytosis. 7. Normocytic anemia with decreasing hemoglobin/hematocrit. 8. Status post packed red blood cell transfusion x2. 9. Elevated erythrocyte sedimentation rate of greater than 114. 10. Coumadin requiring for acute cerebellar infarct. 11. Hypophosphatemia. 12. End-stage renal disease, hemodialysis dependent. 13. Insulin-requiring diabetes mellitus with hyperglycemia. 14. Decreased HDL of 28. 15. Right foot fourth digit ischemia. 16. Peripheral vascular disease. 17. Insomnia. 18. Constipation. 19. Diabetic neuropathy. 20. Hypovitaminosis D. 21. Dyslipidemia. 22. Right foot pain syndrome. 23. Secondary hyperparathyroidism. 1. Right foot fifth digit metatarsal amputation with antibiotic-eluting beads and amputation of the right fifth foot toe. 2. Right foot fifth digit gangrene with questionable osteomyelitis. 3. Questionable postop right foot fifth digit amputation with partial metatarsal resection bleeding. 4. Distal fifth metatarsal amputation. 5. Hypertension. 6. Leukocytosis with granulocytosis. 7. Elevated erythrocyte sedimentation rate of 114. 8. Normocytic anemia with granulocytosis. 9. History of multiple acute cerebral infarct, Coumadin-dependent requiring. 10. End-stage renal disease, hemodialysis dependent via the left upper extremity arteriovenous fistula 3 times a week. 11. Insulin-requiring diabetes mellitus. 12. Morbid obesity with elevated body mass index of 60. 13. Right foot fifth toe Stenotrophomonas maltophilia gangrene, diabetic foot ulceration and cellulitis. 14. Left ventricular ejection fraction of 60%. 15. Pulmonary arterial hypertension with right ventricular systolic pressure of 46 mmHg. 16. Concentric left ventricular hypertrophy. 17. Moderately dilated left atrium. 18. Calcified aortic valve with decreased opening and severe valvular aortic stenosis. 19. Calcified mitral valve with decreased opening and trace mitral regurgitation and moderate mitral stenosis. 20. Tricuspid regurgitation with pulmonary arterial hypertension with right ventricular systolic pressure of 46 mmHg. 21. Gait dysfunction. 22. Deconditioning. 1. Stenotrophomonas maltophilia right foot fifth toe cellulitis, diabetic ulceration, gangrene versus possible osteomyelitis. 2. Hypertension. 3. Insulin requiring diabetes mellitus with hyperglycemia. 4. Morbid obesity. 5. Normocytic anemia. 6. Elevated erythrocyte sedimentation rate of 114. 7. Coumadin requiring cerebral infarct. 8. End-stage renal disease, hemodialysis dependent. 9. Elevated C-reactive of greater 15. 10. . 11. Critical aortic stenosis. 12. Right lower extremity peripheral vascular disease. 13. Right foot neuropathic pain. 14. History of acute infarct of the right parietal lobe, right frontal lobe and left temporal lobe involving the cortex and subcortical white matter. 15. History of multiple old chronic lacunar infarct of the bilateral basal ganglia, right centrum semiovale and left neelima. 16. History of chronic microvascular ischemic disease of the brain. 17. History of questionable mastoiditis. 18. History of lymphedema of the bilateral lower extremities. 19. Diabetic neuropathy. 20. Constipation. 21. Hypervitaminosis D. 22. Hyperlipidemia. 23. Secondary hyperparathyroidism. 1. Abdominal aortogram and bilateral lower extremity runoff with right selective view. 2. Focal right popliteal artery [place] atherectomy with drug-eluting balloon angioplasty. 3. Right anterior tibial artery and right posterior tibial artery angioplasty. 4. Successful focal right popliteal artery atherectomy and drug-eluting balloon angioplasty. 5. Successful right anterior and posterior tibial artery angioplasty. 6. Atretic multiple renal artery. 7. Right popliteal artery critical focal stenosis above the knee. 8. Critical stenosis of the mid right anterior tibial artery and severe stenosis of the proximal right posterior tibial artery and mid right posterior tibial artery. 9. Moderate pedal occlusive disease. 10. End-stage renal disease, hemodialysis-dependent. 11. Hypertension. 12. Right foot fifth toe diabetic ulceration secondary to Stenotrophomonas maltophilia ulceration. 13. Post abdominal aortogram and bilateral lower extremity runoff with left groin bleeding. 14. Peripheral vascular disease. 15. Anemia. 16. Elevated erythrocyte sedimentation rate of 114. 17. Coumadin requiring multiple cerebral infarct. 18. Insulin-requiring diabetes mellitus. 19. Bilateral lower extremity lymphedema. 20. Hyperglycemia. 21. Left groin bleeding slow resolving. 22. Morbid obesity. 23. Gait dysfunction. 24. Right foot fifth toe diabetic ulceration and gangrene with neuropathic pain. 25. Diabetic neuropathy. 26. Hypovitaminosis D. 27. Dyslipidemia. 28. Secondary hyperparathyroidism. 1. Right foot fifth toe gram-negative lars diabetic foot ulcer, cellulitis, gangrene versus questionable osteomyelitis. 2. Right lower extremity peripheral vascular disease with popliteal artery stenosis and tibial artery stenosis. 3. Morbid obesity with elevated body mass index of 60. 4. Normocytic anemia. 5. Granulocytosis. 6. Elevated erythrocyte sedimentation rate of 114. 7. History of multiple acute cerebral infarct, Coumadin-dependent. 8. Insulin-requiring diabetes mellitus with hyperglycemia. 9. End-stage renal disease, hemodialysis dependent. 10. Elevated erythrocyte sedimentation rate of greater than 114. 11. Elevated C-reactive protein of greater than 15. 12. Hyperprocalcitoninemia. 13. Gram-negative lars right foot fifth toe questionable osteomyelitis, diabetic foot ulcer and cellulitis. 14. Status post right lower extremity angiogram and angioplasty. 15. Failure fat suppression of the right foot with edema of the plantar subcutaneous fat of the right foot. 16. Right foot questionable plantar fasciitis with borderline plantar fascia thickening. 17. Right foot cellulitis. 18. Calcified peripheral vascular disease of the lower extremity. 19. Left lower extremity noncompressible waveforms consistent with vascular calcification. 20. Moderately blunted right calf peripheral vascular resistant waveform consistent with right superficial femoral artery occlusive disease. 21. Severely blunted right ankle and metatarsal waveform. 1. Right foot right toe skin and skin structure soft tissue infection. 2. Questionable osteomyelitis of the right foot digits including the fifth digit with relative failure suppression of the fat and the fat suppressed of the digit. 3. Cellulitis of the right foot. 4. Bilateral lower extremity lymphedema. 5. Morbid obesity. 6. Insulin-requiring diabetes mellitus. 7. Right foot fifth digit and foot gangrene. 8. Hypertension. 9. Normocytic anemia. 10. Granulocytosis. 11. Elevated erythrocyte sedimentation rate of greater than 114. 12. History of multiple acute cerebrovascular infarct with Coumadin requiring. 13. End-stage renal disease, hemodialysis dependent. 14. Hyperprocalcitoninemia. 15. Elevated C-reactive protein of greater than 15. 16. Hyperglycemia. 17. Gram-negative lars, right foot fifth toe, questionable osteomyelitis, cellulitis and gangrene. 19. History of recent cerebrovascular accident. 20. Constipation. 21. Diabetic neuropathy. 22. Hypovitaminosis D. 23. Dyslipidemia. 24. Secondary hyperparathyroidism. 1. Acute right foot fifth toe gangrene versus possible osteomyelitis. 2. Right lower extremity peripheral vascular disease. 3. Possible right foot fifth toe diabetic foot ulcer versus cellulitis. 4. Hypertension. 5. End-stage renal disease, hemodialysis dependent three times a week via the left upper extremity fistula. 6. Normocytic anemia. 7. Elevated erythrocyte sedimentation rate of 114. 8. Coumadin-dependent cerebral infarct. 9. Insulin-requiring diabetes mellitus with hyperglycemia. 10. Elevated C-reactive protein of greater than 15. 11. Hyperprocalcitoninemia. 12. Hyperglycemia. 13. Right superficial femoral artery occlusive disease. 14. Severely blunted right distal blood vessel waveform. 15. Calcified peripheral vascular disease. 16. Right leg moderately blunted peripheral vascular resistance waveform consistent with right superficial femoral artery occlusive disease. 17. Severely blunted right ankle and metatarsal waveform. 18. Morbid obesity. 1. Right foot fifth toe gangrene versus diabetic foot ulceration versus questionable underlying osteomyelitis. 2. Right foot fifth toe pain secondary to above. 3. Questionable possible severe diabetic neuropathy. 4. Normocytic anemia. 5. Elevated erythrocyte sedimentation rate of 114. 6. Coumadin-requiring atrial fibrillation with severe aortic valvular stenosis and mitral stenosis. 7. End-stage renal disease, hemodialysis dependent via the left upper extremity arteriovenous fistula. 8. Severe bilateral lower extremity lymphedema. 9. Elevated C-reactive protein of greater than 15. 10. Insulin-requiring diabetes mellitus. 11. History of diabetes. 12. History of hypertension. 13. History of dyslipidemia. 14. History of hypovitaminosis D. 15. History of diabetic neuropathy. 16. History of hyperlipidemia. 17. History of gastroesophageal reflux. 18. History of right foot pain. 1. Multiple acute cerebral infarct, probably multiple acute embolic cerebral infarct. 2. Severe aortic stenosis. 3. Left upper extremity arteriovenous fistula bleeding. 4. Multiple acute embolic cerebral infarct symptomatic with symptoms of dizziness, gait dysfunction. 5. End-stage renal disease, hemodialysis dependent via the left upper extremity arteriovenous fistula three times a week. 6. Anemia. 7. Insulin-requiring diabetes mellitus. 8. History of coronary artery disease. 9. Gait dysfunction. 10. Morbid obesity. 11. Bilateral lower extremity lymphedema. 12. Hypertension. 13. Secondary hyperparathyroidism. 14. Dyslipidemia. 1. Left arteriovenous fistula site bleeding, probably secondary to heparin anticoagulation. 2. Multiple acute cerebral infarct. 3. Multiple acute embolic cerebral infarct with symptoms of dizziness, weakness and gait dysfunction. 4. End-stage renal disease, hemodialysis dependent. 5. Lymphedema of the lower extremity. 6. Normocytic anemia. 7. Insulin-requiring diabetes mellitus with hyperglycemia and hemoglobin A1c of 7.8. 8. Hyperphosphatemia. 9. Hypovitaminosis D. 10. Hypertriglyceridemia. 11. Hypercholesterolemia. 12. Elevated LDL. 13. Diffuse bilateral slowing with abnormal EEG consistent with bilateral cerebral dysfunction. 14. Gait dysfunction. 15. Left upper extremity arteriovenous fistula site bleeding secondary to heparin anticoagulation. 1. Status post right foot fifth toe/fifth digit amputation and metatarsal amputation with antibiotic-eluting beads. 2. Right foot fifth toe/digit gangrene versus questionable osteomyelitis. 3. Status post right foot fifth toe/fifth digit amputation, postoperative day 1. 4. Right fourth digit ischemia. 5. Peripheral vascular disease. 6. Right foot fifth toe Stenotrophomonas maltophilia and Gram-positive cocci, diabetic foot ulceration, and gangrene. 7. Hypertension. 8. Normocytic anemia with decreasing hemoglobin and hematocrit. 9. Leukocytosis with granulocytosis. 10. Elevated erythrocyte sedimentation rate of 114. 11. History of multiple acute cerebral infarct, Coumadin requiring. 12. Hyper-procalcitoninemia. 13. Status post 2 units of packed red blood cells transfusion. 14. Gait dysfunction. 15. Deconditioning. 16. Nonhealing diabetic foot ulceration. 17. End-stage renal disease, hemodialysis dependent. 18. Anemia of chronic kidney disease. 19. Status post right foot fifth digit/fifth toe amputation and partial metatarsal resection, postoperative day 1. 20. A positive blood type. 21. Constipation. 22. Diabetic neuropathy. 23. Hypovitaminosis D. 24. Insulin-requiring diabetes mellitus. 25. Dyslipidemia. 26. Right foot pain syndrome. 27. Secondary hyperparathyroidism with hyperphosphatemia. 1. Right foot fifth digit metatarsal amputation with antibiotic-eluting beads and amputation of the right fifth foot toe. 2. Right foot fifth digit gangrene with questionable osteomyelitis. 3. Questionable postop right foot fifth digit amputation with partial metatarsal resection bleeding. 4. Distal fifth metatarsal amputation. 5. Hypertension. 6. Leukocytosis with granulocytosis. 7. Elevated erythrocyte sedimentation rate of 114. 8. Normocytic anemia with granulocytosis. 9. History of multiple acute cerebral infarct, Coumadin-dependent requiring. 10. End-stage renal disease, hemodialysis dependent via the left upper extremity arteriovenous fistula 3 times a week. 11. Insulin-requiring diabetes mellitus. 12. Morbid obesity with elevated body mass index of 60. 13. Right foot fifth toe Stenotrophomonas maltophilia gangrene, diabetic foot ulceration and cellulitis. 14. Left ventricular ejection fraction of 60%. 15. Pulmonary arterial hypertension with right ventricular systolic pressure of 46 mmHg. 16. Concentric left ventricular hypertrophy. 17. Moderately dilated left atrium. 18. Calcified aortic valve with decreased opening and severe valvular aortic stenosis. 19. Calcified mitral valve with decreased opening and trace mitral regurgitation and moderate mitral stenosis. 20. Tricuspid regurgitation with pulmonary arterial hypertension with right ventricular systolic pressure of 46 mmHg. 21. Gait dysfunction. 22. Deconditioning. 1. Stenotrophomonas maltophilia right foot fifth toe cellulitis, diabetic ulceration, gangrene versus possible osteomyelitis. 2. Hypertension. 3. Insulin requiring diabetes mellitus with hyperglycemia. 4. Morbid obesity. 5. Normocytic anemia. 6. Elevated erythrocyte sedimentation rate of 114. 7. Coumadin requiring cerebral infarct. 8. End-stage renal disease, hemodialysis dependent. 9. Elevated C-reactive of greater 15. 10. . 11. Critical aortic stenosis. 12. Right lower extremity peripheral vascular disease. 13. Right foot neuropathic pain. 14. History of acute infarct of the right parietal lobe, right frontal lobe and left temporal lobe involving the cortex and subcortical white matter. 15. History of multiple old chronic lacunar infarct of the bilateral basal ganglia, right centrum semiovale and left neelima. 16. History of chronic microvascular ischemic disease of the brain. 17. History of questionable mastoiditis. 18. History of lymphedema of the bilateral lower extremities. 19. Diabetic neuropathy. 20. Constipation. 21. Hypervitaminosis D. 22. Hyperlipidemia. 23. Secondary hyperparathyroidism. 1. Abdominal aortogram and bilateral lower extremity runoff with right selective view. 2. Focal right popliteal artery [place] atherectomy with drug-eluting balloon angioplasty. 3. Right anterior tibial artery and right posterior tibial artery angioplasty. 4. Successful focal right popliteal artery atherectomy and drug-eluting balloon angioplasty. 5. Successful right anterior and posterior tibial artery angioplasty. 6. Atretic multiple renal artery. 7. Right popliteal artery critical focal stenosis above the knee. 8. Critical stenosis of the mid right anterior tibial artery and severe stenosis of the proximal right posterior tibial artery and mid right posterior tibial artery. 9. Moderate pedal occlusive disease. 10. End-stage renal disease, hemodialysis-dependent. 11. Hypertension. 12. Right foot fifth toe diabetic ulceration secondary to Stenotrophomonas maltophilia ulceration. 13. Post abdominal aortogram and bilateral lower extremity runoff with left groin bleeding. 14. Peripheral vascular disease. 15. Anemia. 16. Elevated erythrocyte sedimentation rate of 114. 17. Coumadin requiring multiple cerebral infarct. 18. Insulin-requiring diabetes mellitus. 19. Bilateral lower extremity lymphedema. 20. Hyperglycemia. 21. Left groin bleeding slow resolving. 22. Morbid obesity. 23. Gait dysfunction. 24. Right foot fifth toe diabetic ulceration and gangrene with neuropathic pain. 25. Diabetic neuropathy. 26. Hypovitaminosis D. 27. Dyslipidemia. 28. Secondary hyperparathyroidism. 1. Right foot fifth toe gram-negative lars diabetic foot ulcer, cellulitis, gangrene versus questionable osteomyelitis. 2. Right lower extremity peripheral vascular disease with popliteal artery stenosis and tibial artery stenosis. 3. Morbid obesity with elevated body mass index of 60. 4. Normocytic anemia. 5. Granulocytosis. 6. Elevated erythrocyte sedimentation rate of 114. 7. History of multiple acute cerebral infarct, Coumadin-dependent. 8. Insulin-requiring diabetes mellitus with hyperglycemia. 9. End-stage renal disease, hemodialysis dependent. 10. Elevated erythrocyte sedimentation rate of greater than 114. 11. Elevated C-reactive protein of greater than 15. 12. Hyperprocalcitoninemia. 13. Gram-negative lars right foot fifth toe questionable osteomyelitis, diabetic foot ulcer and cellulitis. 14. Status post right lower extremity angiogram and angioplasty. 15. Failure fat suppression of the right foot with edema of the plantar subcutaneous fat of the right foot. 16. Right foot questionable plantar fasciitis with borderline plantar fascia thickening. 17. Right foot cellulitis. 18. Calcified peripheral vascular disease of the lower extremity. 19. Left lower extremity noncompressible waveforms consistent with vascular calcification. 20. Moderately blunted right calf peripheral vascular resistant waveform consistent with right superficial femoral artery occlusive disease. 21. Severely blunted right ankle and metatarsal waveform. 1. Right foot right toe skin and skin structure soft tissue infection. 2. Questionable osteomyelitis of the right foot digits including the fifth digit with relative failure suppression of the fat and the fat suppressed of the digit. 3. Cellulitis of the right foot. 4. Bilateral lower extremity lymphedema. 5. Morbid obesity. 6. Insulin-requiring diabetes mellitus. 7. Right foot fifth digit and foot gangrene. 8. Hypertension. 9. Normocytic anemia. 10. Granulocytosis. 11. Elevated erythrocyte sedimentation rate of greater than 114. 12. History of multiple acute cerebrovascular infarct with Coumadin requiring. 13. End-stage renal disease, hemodialysis dependent. 14. Hyperprocalcitoninemia. 15. Elevated C-reactive protein of greater than 15. 16. Hyperglycemia. 17. Gram-negative lars, right foot fifth toe, questionable osteomyelitis, cellulitis and gangrene. 19. History of recent cerebrovascular accident. 20. Constipation. 21. Diabetic neuropathy. 22. Hypovitaminosis D. 23. Dyslipidemia. 24. Secondary hyperparathyroidism. 1. Acute right foot fifth toe gangrene versus possible osteomyelitis. 2. Right lower extremity peripheral vascular disease. 3. Possible right foot fifth toe diabetic foot ulcer versus cellulitis. 4. Hypertension. 5. End-stage renal disease, hemodialysis dependent three times a week via the left upper extremity fistula. 6. Normocytic anemia. 7. Elevated erythrocyte sedimentation rate of 114. 8. Coumadin-dependent cerebral infarct. 9. Insulin-requiring diabetes mellitus with hyperglycemia. 10. Elevated C-reactive protein of greater than 15. 11. Hyperprocalcitoninemia. 12. Hyperglycemia. 13. Right superficial femoral artery occlusive disease. 14. Severely blunted right distal blood vessel waveform. 15. Calcified peripheral vascular disease. 16. Right leg moderately blunted peripheral vascular resistance waveform consistent with right superficial femoral artery occlusive disease. 17. Severely blunted right ankle and metatarsal waveform. 18. Morbid obesity. 1. Right foot fifth toe gangrene versus diabetic foot ulceration versus questionable underlying osteomyelitis. 2. Right foot fifth toe pain secondary to above. 3. Questionable possible severe diabetic neuropathy. 4. Normocytic anemia. 5. Elevated erythrocyte sedimentation rate of 114. 6. Coumadin-requiring atrial fibrillation with severe aortic valvular stenosis and mitral stenosis. 7. End-stage renal disease, hemodialysis dependent via the left upper extremity arteriovenous fistula. 8. Severe bilateral lower extremity lymphedema. 9. Elevated C-reactive protein of greater than 15. 10. Insulin-requiring diabetes mellitus. 11. History of diabetes. 12. History of hypertension. 13. History of dyslipidemia. 14. History of hypovitaminosis D. 15. History of diabetic neuropathy. 16. History of hyperlipidemia. 17. History of gastroesophageal reflux. 18. History of right foot pain. 1. Multiple acute cerebral infarct, probably multiple acute embolic cerebral infarct. 2. Severe aortic stenosis. 3. Left upper extremity arteriovenous fistula bleeding. 4. Multiple acute embolic cerebral infarct symptomatic with symptoms of dizziness, gait dysfunction. 5. End-stage renal disease, hemodialysis dependent via the left upper extremity arteriovenous fistula three times a week. 6. Anemia. 7. Insulin-requiring diabetes mellitus. 8. History of coronary artery disease. 9. Gait dysfunction. 10. Morbid obesity. 11. Bilateral lower extremity lymphedema. 12. Hypertension. 13. Secondary hyperparathyroidism. 14. Dyslipidemia. 1. Left arteriovenous fistula site bleeding, probably secondary to heparin anticoagulation. 2. Multiple acute cerebral infarct. 3. Multiple acute embolic cerebral infarct with symptoms of dizziness, weakness and gait dysfunction. 4. End-stage renal disease, hemodialysis dependent. 5. Lymphedema of the lower extremity. 6. Normocytic anemia. 7. Insulin-requiring diabetes mellitus with hyperglycemia and hemoglobin A1c of 7.8. 8. Hyperphosphatemia. 9. Hypovitaminosis D. 10. Hypertriglyceridemia. 11. Hypercholesterolemia. 12. Elevated LDL. 13. Diffuse bilateral slowing with abnormal EEG consistent with bilateral cerebral dysfunction. 14. Gait dysfunction. 15. Left upper extremity arteriovenous fistula site bleeding secondary to heparin anticoagulation. 1. Acute cerebral infarct symptomatic with symptoms of dizziness and gait dysfunction. 2. Acute embolic multiple cerebral infarct. 3. End-stage renal disease, hemodialysis dependent three times a week via left upper extremity AV fistula. 4. Embolic acute cerebrovascular accident. 5. Severe to critical aortic stenosis. 6. Abnormal EEG with presence of diffuse slowing consistent with mild bilateral cerebral dysfunction. 7. Hypertension. 8. Transient hypoxemia. 9. Normocytic anemia. 10. Insulin-requiring diabetes mellitus, uncontrolled with hemoglobin A1c of 7.8. 11. Hypovitaminosis D. 12. Hypertriglyceridemia, hypercholesteremia with elevated LDL and decreased HDL. 13. Gait dysfunction. 14. Deconditioning. 15. Bilateral lower extremity lymphedema. 16. Dyslipidemia. 17. Secondary hyperparathyroidism. 1. Multiple acute infarcts, dominant 3-mm infarct in the right parietal lobe with multiple acute smaller infarcts in the right parietal, right frontal, and left temporal lobes. 2. Gait dysfunction. 3. Dizziness. 4. Right parietal lobe 3.5-cm acute infarct. 5. Multiple acute smaller infarcts involving the right parietal lobe, right frontal lobe, left temporal lobe with punctate appearance. 6. Bilateral basal ganglia right centrum semiovale and left pontine multiple old chronic lacunar infarcts. 7. Chronic small vessel ischemic disease of the brain. 8. Left mastoid air cell fluid, questionable mastoiditis. 9. Left ventricular ejection fraction of 60%. 10. Severe valvular aortic stenosis. 11. Pulmonary arterial hypertension with right ventricular systolic pressure of 46 mmHg. 12. Concentric left ventricular atrophy. 13. Moderately dilated left atrium. 14. Calcified aortic valve with decreased opening. 15. Mild aortic regurgitation. 16. Severe valvular aortic stenosis. 17. Trace mitral regurgitation. 18. Moderate mitral stenosis. 19. Deconditioning. 20. Gait dysfunction. 21. Lymphedema of the lower extremity. 22. End-stage renal disease, hemodialysis dependent three times a week via the left upper extremity arteriovenous fistula. 23. Diffuse slowing on the consistent with bilateral cerebral dysfunction. 24. Insulin-requiring diabetes mellitus with hyperglycemia and hemoglobin A1c of 7.8. 25. History of hypertension. 26. Normocytic anemia. 27. Secondary hyperparathyroidism. 28. Uncontrolled insulin-requiring diabetes mellitus with hemoglobin A1c of 7.8. 29. Hypercholesteremia, hypertriglyceridemia with elevated high density lipoprotein and decreased low density lipoprotein. 30. Hypovitaminosis D. 1. Multiple acute brain infarct, probably embolic with right parietal lobe 3-cm dominant infarct and multiple acute infarct in the right parietal, right frontal and left temporal lobes. 2. Left internal carotid artery cavernous and supraclinoid segment stenosis. 3. Renal osteodystrophy. 4. Bilateral cerebral dysfunction. 5. Headache, dizziness, weakness and possible gait dysfunction. 6. Morbid obesity with elevated body mass index of 60. 7. Bilateral lower extremity lymphedema. 8. Chronic venous stasis of the lower extremity. 9. Normocytic anemia. 10. Insulin-requiring diabetes mellitus with hyperglycemia and hemoglobin A1c of 7.8. 11. Hyperglycemia. 12. Hypovitaminosis D. 13. Hypertriglyceridemia, hypercholesteremia with decreased HDL. 14. History of poor compliance. 15. Left ventricular ejection fraction of 60%. 16. Pulmonary arterial hypertension with right ventricular systolic pressure of 46 mmHg 17. Moderate concentric left ventricular hypertrophy. 18. Moderately dilated left atrium. 19. Calcified aortic valve with decreased opening and mild aortic regurgitation. 20. Severe valvular aortic stenosis. 21. Trace mitral regurgitation. 22. Moderate mitral stenosis. 23. Tricuspid regurgitation with right ventricular systolic pressure of 46 mmHg and pulmonary arterial hypertension. 24. Left internal carotid artery narrowing and irregularities of the cavernous and supraclinoid segment compatible with stenosis. 25. Calcified plaque of the left internal carotid artery cavernous and supraclinoid segment. 26. Nonvisualized left anterior cerebral artery. 27. Left lower lobe lingular atelectasis and scarring. 28. Right lung noncalcified 3-mm pulmonary nodule. 29. Cardiomegaly. 30. Bilateral gynecomastia. 31. Left subclavian vein stenting. 32. Possible chronic occlusion of the right brachiocephalic vein. 33. Pulmonary hypertension. 34. Mediastinal lymphadenopathy. 35. Cholelithiasis. 36. Renal osteodystrophy with diffusely dense appearance of the bones and multiple vertebral endplate lucencies and degenerative Schmorl node. 37. Pulmonary nodule. 38. Bilateral 20% to 39% proximal internal carotid artery stenosis. 39. Multiple acute infarct involving the cortex and subcortical white matter and a dominant acute infarct in the right parietal lobe, 3.5 cm, with multiple smaller acute infarct of the right parietal lobe, right frontal lobe and left temporal lobe with punctate appearance. 40. Bilateral basal ganglia, multiple small old chronic lacunar infarct of the bilateral basal ganglia, right centrum semiovale and left neelima area. 41. Chronic microvascular ischemic disease of the brain throughout the brain white matter bilaterally. 42. Left mastoid air cell fluid. 43. Left lower lobe airspace disease, questionable atelectasis or pneumonia. 44. Chronic microangiopathic changes of the brain. 45. Unchanged mid occipital soft tissue swelling. 46. End-stage renal disease, hemodialysis dependent three times a week with left upper extremity arteriovenous fistula. Stenotrophomonas maltophilia and Enterococcus faecalis. Right foot fifth toe and digit Stenotrophomonas maltophilia and Enterococcus faecalis. Right foot fifth toe diabetic foot ulceration and gangrene versus questionable osteomyelitis. Plan at this time, the patient has been ordered repeat labs. Hemoglobin A1c, vitamin D is pending. CURRENT CONSULTATIONS: 1. Infectious Disease. 2. Podiatry. 3. Nephrology. 4. Cardiology. CURRENT MEDICATIONS: Benadryl 25 mg h.s. p.r.n. for insomnia, Colace 100 mg three times a day, Cozaar 100 mg daily, Cymbalta 60 mg daily, Drisdol 50,000 units weekly, Ecotrin 81 mg daily, folic acid 5 mg daily, heparin drip titration protocol, Humulin R medium-dose sliding scale coverage a.c. and h.s, Lipitor decreased to 40 mg daily, meropenem 500 mg IV q. 12 by , MiraLax 17 g twice a day, Percocet 5/325 two tablets q.4h. p.r.n. for pain, PhosLo decreased to 667 mg three times a day, Protonix 40 mg daily, Senokot 17.2 mg h.s., Sensipar 30 mg daily, Tylenol 650 mg p.o. and suppository q.4h. p.r.n. The patient has been on renal diet. The patient has been ordered fingerstick blood sugar a.c. and h.s., TEDs, SCDs and VT device to the left side noted. Ordered physical therapy, occupational therapy, out of bed to chair ordered. At present, I had a lengthy discussion with the patient regarding possibilities of long-term antibiotic. The patient has clearly stated that he would prefer to get IV antibiotic on dialysis if possible three times a week as the patient comes to the [facility] for dialysis three times a week and the patient does not prefer and wishes to go to subacute rehab. For this matter, I have referred the patient's case to psychiatric social worker and case management for discharge planning. The patient wished to have the IV antibiotic, if needed long-term IV antibiotic, which he prefers to have it done on hemodialysis three times a week. Plan at this time as dictated above. Dictated and electronically signed, not read. Steve Rincon MD Dictated By: Steve Rincon MD Transcribed Date and Time: 09/01/17 0935 Transcribed By: [facility] Signed By: Date & Time Signed: Co-Signed By: Date & Time Signed: PHYSICAL EXAMINATION GENERAL: The patient is comfortable. VITAL SIGNS: T-max 98.7, pulse 75-77, blood pressure 152/71, 129/61, 151/66. Respirations 18, O2 sat 96%-99%. HEAD: Normocephalic, atraumatic. EENT: Shows pink conjunctivae. Anicteric sclerae. No oropharyngeal lesion. No neck rigidity. Questionable soft carotid bruit. CHEST: Kyphosis. LUNGS: Show no rales, crackles or wheezing. CARDIOVASCULAR: S1, S2, regular rhythm. Positive systolic murmur at left sternal border, left second intercostal space, right second intercostal space. ABDOMEN: Morbidly obese. No hepatosplenomegaly noted. No guarding. No rigidity. No rebound tenderness. GENITALIA: Male. RECTAL: Deferred. EXTREMITIES: Shows right foot dressing. Positive lymphedema of the lower extremity, right more than the left. MUSCULOSKELETAL: Shows a body mass index of 43. NEUROLOGIC: The patient is alert, awake, oriented x3. Cranial nerves II-XII grossly intact. Gait examination not tested. DIAGNOSTICS: 09/07; WBC 12.9, hemoglobin/hematocrit 10.3 and 32.0, platelets 323, granulocytes 77. PT/PTT 12 and 51.3. Sodium 132, potassium 3.9, chloride 93, CO2 of 28, anion gap 15, BUN 37, creatinine 8.1, GFR 8 , glucose 140, phosphorus 3.2, magnesium 2.1. Right foot gram stain wound cultures pending. IMPRESSION: 1. Right foot fifth and fourth toe gangrene and osteomyelitis. 2. Status post right foot fourth and fifth toe and metatarsal amputation. 3. Status post right foot ulcer debridement. 4. Severe peripheral vascular disease of the lower extremity. 5. Hypertension. 6. Bilateral lower extremity lymphedema, right more than the left. 7. Severe gait dysfunction and deconditioning. 8. Morbid obesity. 9. Leukocytosis with granulocytosis. 10 Normocytic anemia. 11. End-stage renal disease, hemodialysis dependent 3 times a week via the left upper extremity arteriovenous fistula. 12. Insulin-requiring diabetes mellitus. 13. Gait dysfunction. 14. Status post right fourth toe amputation and debridement of the right foot ulcer. 15. Enterococcus faecalis and Stenotrophomonas maltophilia, right foot fourth and fifth toe osteomyelitis and gangrene and diabetic foot ulcer. 16. Coronary artery disease. 17. History of acute cerebral infarct. 18. Insomnia. 19. Constipation. 20. Diabetic neuropathy. 21. Hypovitaminosis D. 22. Insulin-requiring diabetes mellitus. 23. Hyperlipidemia. 24. Secondary hyperparathyroidism. 1. Status post right foot fourth toe amputation and debridement of the right foot ulcer. 2. Right foot toe gangrene and diabetic ulceration. 3. Peripheral vascular disease. 4. Status post right foot fourth digit gangrene with diabetes mellitus and peripheral vascular disease. 5. Status post irrigation and debridement of the diabetic and gangrene ulcer of the right foot. 6. Partial right foot fourth metatarsal amputation. 7. Status post right upper extremity PICC line placement. 8. Status post amputation of the right foot distal fourth and fifth metatarsal. 9. Morbid obesity with elevated body mass index. 10. Cardiomegaly. 11. Enterococcus faecalis and Stenotrophomonas maltophilia right foot toes diabetic foot ulceration and gangrene. 12. Insomnia. 13. Constipation. 14. Hypertension. 15. Diabetic neuropathy. 16. Hypovitaminosis D. 17. Insulin-requiring diabetes mellitus. 19. Hyperlipidemia. 20. Secondary hyperparathyroidism. 1. Right foot fifth toe Enterococcus faecalis and Stenotrophomonas maltophilia diabetic foot ulceration and gangrene. 2. Hypertension. 3. Bilateral lower extremity lymphedema and venous stasis. 4. Leukocytosis with granulocytosis. 5. Normocytic anemia. 6. Secondary hyperparathyroidism with elevated parathyroid hormone level of 130. 7. Hypovitaminosis D. 8. End-stage renal disease, hemodialysis dependent via the left upper extremity fistula three times a week. 9. Hyponatremia. 10. Gait dysfunction. 11. Morbid obesity. 12. Deconditioning. 13. Status post right upper extremity PICC line placement. 14. Peripheral vascular disease. 15. Right foot fourth toe gangrene and severe peripheral vascular disease. 16. Right foot fifth and fourth toe skin and skin structure infection severe, secondary to Enterococcus faecalis and Stenotrophomonas maltophilia infection. 17. Insomnia. 18. Constipation. 19. Diabetic neuropathy. 20. Insulin-requiring diabetes mellitus. 21. Hypercholesteremia. 22. Hyperphosphatemia. 1. Deconditioning. 2. Gait dysfunction. 3. Right foot fifth toe and fifth digit amputation and partial metatarsal resection, postoperative day 3. 4. Right foot fourth digit ischemia versus gangrene. 5. Right foot fifth toe Enterococcus faecalis and Stenotrophomonas maltophilia diabetic foot ulceration and gangrene and questionable osteomyelitis. 6. Right foot fifth toe ulceration and acute and extensive necrosis and acute osteomyelitis with proximal resection margin negative for osteomyelitis. 7. Severe atherosclerotic disease of the lower extremity. 8. Right foot fifth toe extensive necrosis with acute and chronic inflammation and ulceration. 9. Hypertension. 10. Morbid obesity with elevated body mass index of 42. 11. Leukocytosis with granulocytosis. 12. Normocytic anemia. 13. Status post packed red blood cell transfusion. 14. Insulin-requiring diabetes mellitus. 15. Hypovitaminosis D. 16. History of hyperlipidemia. 17. Mild hypophosphatemia. 18. Bilateral lower extremity lymphedema, right more than the left. 19. Peripheral vascular disease. 20. End-stage renal disease, hemodialysis dependent, three times a week via the left upper extremity AV fistula. 21. Constipation. 22. Insomnia. 23. Diabetic neuropathy. 24. Hyperlipidemia. 25. Right foot pain syndrome. 1. Deconditioning. 2. Gait dysfunction. 3. Right foot fifth digit metatarsal amputation with antibiotic-eluting beads and amputation of the right foot fifth toe. 4. Hypertension. 5. Bilateral lower extremity venous stasis and lymphedema. 6. Leukocytosis with granulocytosis. 7. Normocytic anemia with decreasing hemoglobin/hematocrit. 8. Status post packed red blood cell transfusion x2. 9. Elevated erythrocyte sedimentation rate of greater than 114. 10. Coumadin requiring for acute cerebellar infarct. 11. Hypophosphatemia. 12. End-stage renal disease, hemodialysis dependent. 13. Insulin-requiring diabetes mellitus with hyperglycemia. 14. Decreased HDL of 28. 15. Right foot fourth digit ischemia. 16. Peripheral vascular disease. 17. Insomnia. 18. Constipation. 19. Diabetic neuropathy. 20. Hypovitaminosis D. 21. Dyslipidemia. 22. Right foot pain syndrome. 23. Secondary hyperparathyroidism. 1. Right foot fifth digit metatarsal amputation with antibiotic-eluting beads and amputation of the right fifth foot toe. 2. Right foot fifth digit gangrene with questionable osteomyelitis. 3. Questionable postop right foot fifth digit amputation with partial metatarsal resection bleeding. 4. Distal fifth metatarsal amputation. 5. Hypertension. 6. Leukocytosis with granulocytosis. 7. Elevated erythrocyte sedimentation rate of 114. 8. Normocytic anemia with granulocytosis. 9. History of multiple acute cerebral infarct, Coumadin-dependent requiring. 10. End-stage renal disease, hemodialysis dependent via the left upper extremity arteriovenous fistula 3 times a week. 11. Insulin-requiring diabetes mellitus. 12. Morbid obesity with elevated body mass index of 60. 13. Right foot fifth toe Stenotrophomonas maltophilia gangrene, diabetic foot ulceration and cellulitis. 14. Left ventricular ejection fraction of 60%. 15. Pulmonary arterial hypertension with right ventricular systolic pressure of 46 mmHg. 16. Concentric left ventricular hypertrophy. 17. Moderately dilated left atrium. 18. Calcified aortic valve with decreased opening and severe valvular aortic stenosis. 19. Calcified mitral valve with decreased opening and trace mitral regurgitation and moderate mitral stenosis. 20. Tricuspid regurgitation with pulmonary arterial hypertension with right ventricular systolic pressure of 46 mmHg. 21. Gait dysfunction. 22. Deconditioning. 1. Stenotrophomonas maltophilia right foot fifth toe cellulitis, diabetic ulceration, gangrene versus possible osteomyelitis. 2. Hypertension. 3. Insulin requiring diabetes mellitus with hyperglycemia. 4. Morbid obesity. 5. Normocytic anemia. 6. Elevated erythrocyte sedimentation rate of 114. 7. Coumadin requiring cerebral infarct. 8. End-stage renal disease, hemodialysis dependent. 9. Elevated C-reactive of greater 15. 10. . 11. Critical aortic stenosis. 12. Right lower extremity peripheral vascular disease. 13. Right foot neuropathic pain. 14. History of acute infarct of the right parietal lobe, right frontal lobe and left temporal lobe involving the cortex and subcortical white matter. 15. History of multiple old chronic lacunar infarct of the bilateral basal ganglia, right centrum semiovale and left neelima. 16. History of chronic microvascular ischemic disease of the brain. 17. History of questionable mastoiditis. 18. History of lymphedema of the bilateral lower extremities. 19. Diabetic neuropathy. 20. Constipation. 21. Hypervitaminosis D. 22. Hyperlipidemia. 23. Secondary hyperparathyroidism. 1. Abdominal aortogram and bilateral lower extremity runoff with right selective view. 2. Focal right popliteal artery [place] atherectomy with drug-eluting balloon angioplasty. 3. Right anterior tibial artery and right posterior tibial artery angioplasty. 4. Successful focal right popliteal artery atherectomy and drug-eluting balloon angioplasty. 5. Successful right anterior and posterior tibial artery angioplasty. 6. Atretic multiple renal artery. 7. Right popliteal artery critical focal stenosis above the knee. 8. Critical stenosis of the mid right anterior tibial artery and severe stenosis of the proximal right posterior tibial artery and mid right posterior tibial artery. 9. Moderate pedal occlusive disease. 10. End-stage renal disease, hemodialysis-dependent. 11. Hypertension. 12. Right foot fifth toe diabetic ulceration secondary to Stenotrophomonas maltophilia ulceration. 13. Post abdominal aortogram and bilateral lower extremity runoff with left groin bleeding. 14. Peripheral vascular disease. 15. Anemia. 16. Elevated erythrocyte sedimentation rate of 114. 17. Coumadin requiring multiple cerebral infarct. 18. Insulin-requiring diabetes mellitus. 19. Bilateral lower extremity lymphedema. 20. Hyperglycemia. 21. Left groin bleeding slow resolving. 22. Morbid obesity. 23. Gait dysfunction. 24. Right foot fifth toe diabetic ulceration and gangrene with neuropathic pain. 25. Diabetic neuropathy. 26. Hypovitaminosis D. 27. Dyslipidemia. 28. Secondary hyperparathyroidism. 1. Right foot fifth toe gram-negative lars diabetic foot ulcer, cellulitis, gangrene versus questionable osteomyelitis. 2. Right lower extremity peripheral vascular disease with popliteal artery stenosis and tibial artery stenosis. 3. Morbid obesity with elevated body mass index of 60. 4. Normocytic anemia. 5. Granulocytosis. 6. Elevated erythrocyte sedimentation rate of 114. 7. History of multiple acute cerebral infarct, Coumadin-dependent. 8. Insulin-requiring diabetes mellitus with hyperglycemia. 9. End-stage renal disease, hemodialysis dependent. 10. Elevated erythrocyte sedimentation rate of greater than 114. 11. Elevated C-reactive protein of greater than 15. 12. Hyperprocalcitoninemia. 13. Gram-negative lars right foot fifth toe questionable osteomyelitis, diabetic foot ulcer and cellulitis. 14. Status post right lower extremity angiogram and angioplasty. 15. Failure fat suppression of the right foot with edema of the plantar subcutaneous fat of the right foot. 16. Right foot questionable plantar fasciitis with borderline plantar fascia thickening. 17. Right foot cellulitis. 18. Calcified peripheral vascular disease of the lower extremity. 19. Left lower extremity noncompressible waveforms consistent with vascular calcification. 20. Moderately blunted right calf peripheral vascular resistant waveform consistent with right superficial femoral artery occlusive disease. 21. Severely blunted right ankle and metatarsal waveform. 1. Right foot right toe skin and skin structure soft tissue infection. 2. Questionable osteomyelitis of the right foot digits including the fifth digit with relative failure suppression of the fat and the fat suppressed of the digit. 3. Cellulitis of the right foot. 4. Bilateral lower extremity lymphedema. 5. Morbid obesity. 6. Insulin-requiring diabetes mellitus. 7. Right foot fifth digit and foot gangrene. 8. Hypertension. 9. Normocytic anemia. 10. Granulocytosis. 11. Elevated erythrocyte sedimentation rate of greater than 114. 12. History of multiple acute cerebrovascular infarct with Coumadin requiring. 13. End-stage renal disease, hemodialysis dependent. 14. Hyperprocalcitoninemia. 15. Elevated C-reactive protein of greater than 15. 16. Hyperglycemia. 17. Gram-negative lars, right foot fifth toe, questionable osteomyelitis, cellulitis and gangrene. 19. History of recent cerebrovascular accident. 20. Constipation. 21. Diabetic neuropathy. 22. Hypovitaminosis D. 23. Dyslipidemia. 24. Secondary hyperparathyroidism. 1. Acute right foot fifth toe gangrene versus possible osteomyelitis. 2. Right lower extremity peripheral vascular disease. 3. Possible right foot fifth toe diabetic foot ulcer versus cellulitis. 4. Hypertension. 5. End-stage renal disease, hemodialysis dependent three times a week via the left upper extremity fistula. 6. Normocytic anemia. 7. Elevated erythrocyte sedimentation rate of 114. 8. Coumadin-dependent cerebral infarct. 9. Insulin-requiring diabetes mellitus with hyperglycemia. 10. Elevated C-reactive protein of greater than 15. 11. Hyperprocalcitoninemia. 12. Hyperglycemia. 13. Right superficial femoral artery occlusive disease. 14. Severely blunted right distal blood vessel waveform. 15. Calcified peripheral vascular disease. 16. Right leg moderately blunted peripheral vascular resistance waveform consistent with right superficial femoral artery occlusive disease. 17. Severely blunted right ankle and metatarsal waveform. 18. Morbid obesity. 1. Right foot fifth toe gangrene versus diabetic foot ulceration versus questionable underlying osteomyelitis. 2. Right foot fifth toe pain secondary to above. 3. Questionable possible severe diabetic neuropathy. 4. Normocytic anemia. 5. Elevated erythrocyte sedimentation rate of 114. 6. Coumadin-requiring atrial fibrillation with severe aortic valvular stenosis and mitral stenosis. 7. End-stage renal disease, hemodialysis dependent via the left upper extremity arteriovenous fistula. 8. Severe bilateral lower extremity lymphedema. 9. Elevated C-reactive protein of greater than 15. 10. Insulin-requiring diabetes mellitus. 11. History of diabetes. 12. History of hypertension. 13. History of dyslipidemia. 14. History of hypovitaminosis D. 15. History of diabetic neuropathy. 16. History of hyperlipidemia. 17. History of gastroesophageal reflux. 18. History of right foot pain. 1. Multiple acute cerebral infarct, probably multiple acute embolic cerebral infarct. 2. Severe aortic stenosis. 3. Left upper extremity arteriovenous fistula bleeding. 4. Multiple acute embolic cerebral infarct symptomatic with symptoms of dizziness, gait dysfunction. 5. End-stage renal disease, hemodialysis dependent via the left upper extremity arteriovenous fistula three times a week. 6. Anemia. 7. Insulin-requiring diabetes mellitus. 8. History of coronary artery disease. 9. Gait dysfunction. 10. Morbid obesity. 11. Bilateral lower extremity lymphedema. 12. Hypertension. 13. Secondary hyperparathyroidism. 14. Dyslipidemia. 1. Left arteriovenous fistula site bleeding, probably secondary to heparin anticoagulation. 2. Multiple acute cerebral infarct. 3. Multiple acute embolic cerebral infarct with symptoms of dizziness, weakness and gait dysfunction. 4. End-stage renal disease, hemodialysis dependent. 5. Lymphedema of the lower extremity. 6. Normocytic anemia. 7. Insulin-requiring diabetes mellitus with hyperglycemia and hemoglobin A1c of 7.8. 8. Hyperphosphatemia. 9. Hypovitaminosis D. 10. Hypertriglyceridemia. 11. Hypercholesterolemia. 12. Elevated LDL. 13. Diffuse bilateral slowing with abnormal EEG consistent with bilateral cerebral dysfunction. 14. Gait dysfunction. 15. Left upper extremity arteriovenous fistula site bleeding secondary to heparin anticoagulation. 1. Status post right foot fifth toe/fifth digit amputation and metatarsal amputation with antibiotic-eluting beads. 2. Right foot fifth toe/digit gangrene versus questionable osteomyelitis. 3. Status post right foot fifth toe/fifth digit amputation, postoperative day 1. 4. Right fourth digit ischemia. 5. Peripheral vascular disease. 6. Right foot fifth toe Stenotrophomonas maltophilia and Gram-positive cocci, diabetic foot ulceration, and gangrene. 7. Hypertension. 8. Normocytic anemia with decreasing hemoglobin and hematocrit. 9. Leukocytosis with granulocytosis. 10. Elevated erythrocyte sedimentation rate of 114. 11. History of multiple acute cerebral infarct, Coumadin requiring. 12. Hyper-procalcitoninemia. 13. Status post 2 units of packed red blood cells transfusion. 14. Gait dysfunction. 15. Deconditioning. 16. Nonhealing diabetic foot ulceration. 17. End-stage renal disease, hemodialysis dependent. 18. Anemia of chronic kidney disease. 19. Status post right foot fifth digit/fifth toe amputation and partial metatarsal resection, postoperative day 1. 20. A positive blood type. 21. Constipation. 22. Diabetic neuropathy. 23. Hypovitaminosis D. 24. Insulin-requiring diabetes mellitus. 25. Dyslipidemia. 26. Right foot pain syndrome. 27. Secondary hyperparathyroidism with hyperphosphatemia. 1. Right foot fifth digit metatarsal amputation with antibiotic-eluting beads and amputation of the right fifth foot toe. 2. Right foot fifth digit gangrene with questionable osteomyelitis. 3. Questionable postop right foot fifth digit amputation with partial metatarsal resection bleeding. 4. Distal fifth metatarsal amputation. 5. Hypertension. 6. Leukocytosis with granulocytosis. 7. Elevated erythrocyte sedimentation rate of 114. 8. Normocytic anemia with granulocytosis. 9. History of multiple acute cerebral infarct, Coumadin-dependent requiring. 10. End-stage renal disease, hemodialysis dependent via the left upper extremity arteriovenous fistula 3 times a week. 11. Insulin-requiring diabetes mellitus. 12. Morbid obesity with elevated body mass index of 60. 13. Right foot fifth toe Stenotrophomonas maltophilia gangrene, diabetic foot ulceration and cellulitis. 14. Left ventricular ejection fraction of 60%. 15. Pulmonary arterial hypertension with right ventricular systolic pressure of 46 mmHg. 16. Concentric left ventricular hypertrophy. 17. Moderately dilated left atrium. 18. Calcified aortic valve with decreased opening and severe valvular aortic stenosis. 19. Calcified mitral valve with decreased opening and trace mitral regurgitation and moderate mitral stenosis. 20. Tricuspid regurgitation with pulmonary arterial hypertension with right ventricular systolic pressure of 46 mmHg. 21. Gait dysfunction. 22. Deconditioning. 1. Stenotrophomonas maltophilia right foot fifth toe cellulitis, diabetic ulceration, gangrene versus possible osteomyelitis. 2. Hypertension. 3. Insulin requiring diabetes mellitus with hyperglycemia. 4. Morbid obesity. 5. Normocytic anemia. 6. Elevated erythrocyte sedimentation rate of 114. 7. Coumadin requiring cerebral infarct. 8. End-stage renal disease, hemodialysis dependent. 9. Elevated C-reactive of greater 15. 10. . 11. Critical aortic stenosis. 12. Right lower extremity peripheral vascular disease. 13. Right foot neuropathic pain. 14. History of acute infarct of the right parietal lobe, right frontal lobe and left temporal lobe involving the cortex and subcortical white matter. 15. History of multiple old chronic lacunar infarct of the bilateral basal ganglia, right centrum semiovale and left neelima. 16. History of chronic microvascular ischemic disease of the brain. 17. History of questionable mastoiditis. 18. History of lymphedema of the bilateral lower extremities. 19. Diabetic neuropathy. 20. Constipation. 21. Hypervitaminosis D. 22. Hyperlipidemia. 23. Secondary hyperparathyroidism. 1. Abdominal aortogram and bilateral lower extremity runoff with right selective view. 2. Focal right popliteal artery [place] atherectomy with drug-eluting balloon angioplasty. 3. Right anterior tibial artery and right posterior tibial artery angioplasty. 4. Successful focal right popliteal artery atherectomy and drug-eluting balloon angioplasty. 5. Successful right anterior and posterior tibial artery angioplasty. 6. Atretic multiple renal artery. 7. Right popliteal artery critical focal stenosis above the knee. 8. Critical stenosis of the mid right anterior tibial artery and severe stenosis of the proximal right posterior tibial artery and mid right posterior tibial artery. 9. Moderate pedal occlusive disease. 10. End-stage renal disease, hemodialysis-dependent. 11. Hypertension. 12. Right foot fifth toe diabetic ulceration secondary to Stenotrophomonas maltophilia ulceration. 13. Post abdominal aortogram and bilateral lower extremity runoff with left groin bleeding. 14. Peripheral vascular disease. 15. Anemia. 16. Elevated erythrocyte sedimentation rate of 114. 17. Coumadin requiring multiple cerebral infarct. 18. Insulin-requiring diabetes mellitus. 19. Bilateral lower extremity lymphedema. 20. Hyperglycemia. 21. Left groin bleeding slow resolving. 22. Morbid obesity. 23. Gait dysfunction. 24. Right foot fifth toe diabetic ulceration and gangrene with neuropathic pain. 25. Diabetic neuropathy. 26. Hypovitaminosis D. 27. Dyslipidemia. 28. Secondary hyperparathyroidism. 1. Right foot fifth toe gram-negative lars diabetic foot ulcer, cellulitis, gangrene versus questionable osteomyelitis. 2. Right lower extremity peripheral vascular disease with popliteal artery stenosis and tibial artery stenosis. 3. Morbid obesity with elevated body mass index of 60. 4. Normocytic anemia. 5. Granulocytosis. 6. Elevated erythrocyte sedimentation rate of 114. 7. History of multiple acute cerebral infarct, Coumadin-dependent. 8. Insulin-requiring diabetes mellitus with hyperglycemia. 9. End-stage renal disease, hemodialysis dependent. 10. Elevated erythrocyte sedimentation rate of greater than 114. 11. Elevated C-reactive protein of greater than 15. 12. Hyperprocalcitoninemia. 13. Gram-negative lars right foot fifth toe questionable osteomyelitis, diabetic foot ulcer and cellulitis. 14. Status post right lower extremity angiogram and angioplasty. 15. Failure fat suppression of the right foot with edema of the plantar subcutaneous fat of the right foot. 16. Right foot questionable plantar fasciitis with borderline plantar fascia thickening. 17. Right foot cellulitis. 18. Calcified peripheral vascular disease of the lower extremity. 19. Left lower extremity noncompressible waveforms consistent with vascular calcification. 20. Moderately blunted right calf peripheral vascular resistant waveform consistent with right superficial femoral artery occlusive disease. 21. Severely blunted right ankle and metatarsal waveform. 1. Right foot right toe skin and skin structure soft tissue infection. 2. Questionable osteomyelitis of the right foot digits including the fifth digit with relative failure suppression of the fat and the fat suppressed of the digit. 3. Cellulitis of the right foot. 4. Bilateral lower extremity lymphedema. 5. Morbid obesity. 6. Insulin-requiring diabetes mellitus. 7. Right foot fifth digit and foot gangrene. 8. Hypertension. 9. Normocytic anemia. 10. Granulocytosis. 11. Elevated erythrocyte sedimentation rate of greater than 114. 12. History of multiple acute cerebrovascular infarct with Coumadin requiring. 13. End-stage renal disease, hemodialysis dependent. 14. Hyperprocalcitoninemia. 15. Elevated C-reactive protein of greater than 15. 16. Hyperglycemia. 17. Gram-negative lars, right foot fifth toe, questionable osteomyelitis, cellulitis and gangrene. 19. History of recent cerebrovascular accident. 20. Constipation. 21. Diabetic neuropathy. 22. Hypovitaminosis D. 23. Dyslipidemia. 24. Secondary hyperparathyroidism. 1. Acute right foot fifth toe gangrene versus possible osteomyelitis. 2. Right lower extremity peripheral vascular disease. 3. Possible right foot fifth toe diabetic foot ulcer versus cellulitis. 4. Hypertension. 5. End-stage renal disease, hemodialysis dependent three times a week via the left upper extremity fistula. 6. Normocytic anemia. 7. Elevated erythrocyte sedimentation rate of 114. 8. Coumadin-dependent cerebral infarct. 9. Insulin-requiring diabetes mellitus with hyperglycemia. 10. Elevated C-reactive protein of greater than 15. 11. Hyperprocalcitoninemia. 12. Hyperglycemia. 13. Right superficial femoral artery occlusive disease. 14. Severely blunted right distal blood vessel waveform. 15. Calcified peripheral vascular disease. 16. Right leg moderately blunted peripheral vascular resistance waveform consistent with right superficial femoral artery occlusive disease. 17. Severely blunted right ankle and metatarsal waveform. 18. Morbid obesity. 1. Right foot fifth toe gangrene versus diabetic foot ulceration versus questionable underlying osteomyelitis. 2. Right foot fifth toe pain secondary to above. 3. Questionable possible severe diabetic neuropathy. 4. Normocytic anemia. 5. Elevated erythrocyte sedimentation rate of 114. 6. Coumadin-requiring atrial fibrillation with severe aortic valvular stenosis and mitral stenosis. 7. End-stage renal disease, hemodialysis dependent via the left upper extremity arteriovenous fistula. 8. Severe bilateral lower extremity lymphedema. 9. Elevated C-reactive protein of greater than 15. 10. Insulin-requiring diabetes mellitus. 11. History of diabetes. 12. History of hypertension. 13. History of dyslipidemia. 14. History of hypovitaminosis D. 15. History of diabetic neuropathy. 16. History of hyperlipidemia. 17. History of gastroesophageal reflux. 18. History of right foot pain. 1. Multiple acute cerebral infarct, probably multiple acute embolic cerebral infarct. 2. Severe aortic stenosis. 3. Left upper extremity arteriovenous fistula bleeding. 4. Multiple acute embolic cerebral infarct symptomatic with symptoms of dizziness, gait dysfunction. 5. End-stage renal disease, hemodialysis dependent via the left upper extremity arteriovenous fistula three times a week. 6. Anemia. 7. Insulin-requiring diabetes mellitus. 8. History of coronary artery disease. 9. Gait dysfunction. 10. Morbid obesity. 11. Bilateral lower extremity lymphedema. 12. Hypertension. 13. Secondary hyperparathyroidism. 14. Dyslipidemia. 1. Left arteriovenous fistula site bleeding, probably secondary to heparin anticoagulation. 2. Multiple acute cerebral infarct. 3. Multiple acute embolic cerebral infarct with symptoms of dizziness, weakness and gait dysfunction. 4. End-stage renal disease, hemodialysis dependent. 5. Lymphedema of the lower extremity. 6. Normocytic anemia. 7. Insulin-requiring diabetes mellitus with hyperglycemia and hemoglobin A1c of 7.8. 8. Hyperphosphatemia. 9. Hypovitaminosis D. 10. Hypertriglyceridemia. 11. Hypercholesterolemia. 12. Elevated LDL. 13. Diffuse bilateral slowing with abnormal EEG consistent with bilateral cerebral dysfunction. 14. Gait dysfunction. 15. Left upper extremity arteriovenous fistula site bleeding secondary to heparin anticoagulation. 1. Acute cerebral infarct symptomatic with symptoms of dizziness and gait dysfunction. 2. Acute embolic multiple cerebral infarct. 3. End-stage renal disease, hemodialysis dependent three times a week via left upper extremity AV fistula. 4. Embolic acute cerebrovascular accident. 5. Severe to critical aortic stenosis. 6. Abnormal EEG with presence of diffuse slowing consistent with mild bilateral cerebral dysfunction. 7. Hypertension. 8. Transient hypoxemia. 9. Normocytic anemia. 10. Insulin-requiring diabetes mellitus, uncontrolled with hemoglobin A1c of 7.8. 11. Hypovitaminosis D. 12. Hypertriglyceridemia, hypercholesteremia with elevated LDL and decreased HDL. 13. Gait dysfunction. 14. Deconditioning. 15. Bilateral lower extremity lymphedema. 16. Dyslipidemia. 17. Secondary hyperparathyroidism. 1. Multiple acute infarcts, dominant 3-mm infarct in the right parietal lobe with multiple acute smaller infarcts in the right parietal, right frontal, and left temporal lobes. 2. Gait dysfunction. 3. Dizziness. 4. Right parietal lobe 3.5-cm acute infarct. 5. Multiple acute smaller infarcts involving the right parietal lobe, right frontal lobe, left temporal lobe with punctate appearance. 6. Bilateral basal ganglia right centrum semiovale and left pontine multiple old chronic lacunar infarcts. 7. Chronic small vessel ischemic disease of the brain. 8. Left mastoid air cell fluid, questionable mastoiditis. 9. Left ventricular ejection fraction of 60%. 10. Severe valvular aortic stenosis. 11. Pulmonary arterial hypertension with right ventricular systolic pressure of 46 mmHg. 12. Concentric left ventricular atrophy. 13. Moderately dilated left atrium. 14. Calcified aortic valve with decreased opening. 15. Mild aortic regurgitation. 16. Severe valvular aortic stenosis. 17. Trace mitral regurgitation. 18. Moderate mitral stenosis. 19. Deconditioning. 20. Gait dysfunction. 21. Lymphedema of the lower extremity. 22. End-stage renal disease, hemodialysis dependent three times a week via the left upper extremity arteriovenous fistula. 23. Diffuse slowing on the consistent with bilateral cerebral dysfunction. 24. Insulin-requiring diabetes mellitus with hyperglycemia and hemoglobin A1c of 7.8. 25. History of hypertension. 26. Normocytic anemia. 27. Secondary hyperparathyroidism. 28. Uncontrolled insulin-requiring diabetes mellitus with hemoglobin A1c of 7.8. 29. Hypercholesteremia, hypertriglyceridemia with elevated high density lipoprotein and decreased low density lipoprotein. 30. Hypovitaminosis D. 1. Multiple acute brain infarct, probably embolic with right parietal lobe 3-cm dominant infarct and multiple acute infarct in the right parietal, right frontal and left temporal lobes. 2. Left internal carotid artery cavernous and supraclinoid segment stenosis. 3. Renal osteodystrophy. 4. Bilateral cerebral dysfunction. 5. Headache, dizziness, weakness and possible gait dysfunction. 6. Morbid obesity with elevated body mass index of 60. 7. Bilateral lower extremity lymphedema. 8. Chronic venous stasis of the lower extremity. 9. Normocytic anemia. 10. Insulin-requiring diabetes mellitus with hyperglycemia and hemoglobin A1c of 7.8. 11. Hyperglycemia. 12. Hypovitaminosis D. 13. Hypertriglyceridemia, hypercholesteremia with decreased HDL. 14. History of poor compliance. 15. Left ventricular ejection fraction of 60%. 16. Pulmonary arterial hypertension with right ventricular systolic pressure of 46 mmHg 17. Moderate concentric left ventricular hypertrophy. 18. Moderately dilated left atrium. 19. Calcified aortic valve with decreased opening and mild aortic regurgitation. 20. Severe valvular aortic stenosis. 21. Trace mitral regurgitation. 22. Moderate mitral stenosis. 23. Tricuspid regurgitation with right ventricular systolic pressure of 46 mmHg and pulmonary arterial hypertension. 24. Left internal carotid artery narrowing and irregularities of the cavernous and supraclinoid segment compatible with stenosis. 25. Calcified plaque of the left internal carotid artery cavernous and supraclinoid segment. 26. Nonvisualized left anterior cerebral artery. 27. Left lower lobe lingular atelectasis and scarring. 28. Right lung noncalcified 3-mm pulmonary nodule. 29. Cardiomegaly. 30. Bilateral gynecomastia. 31. Left subclavian vein stenting. 32. Possible chronic occlusion of the right brachiocephalic vein. 33. Pulmonary hypertension. 34. Mediastinal lymphadenopathy. 35. Cholelithiasis. 36. Renal osteodystrophy with diffusely dense appearance of the bones and multiple vertebral endplate lucencies and degenerative Schmorl node. 37. Pulmonary nodule. 38. Bilateral 20% to 39% proximal internal carotid artery stenosis. 39. Multiple acute infarct involving the cortex and subcortical white matter and a dominant acute infarct in the right parietal lobe, 3.5 cm, with multiple smaller acute infarct of the right parietal lobe, right frontal lobe and left temporal lobe with punctate appearance. 40. Bilateral basal ganglia, multiple small old chronic lacunar infarct of the bilateral basal ganglia, right centrum semiovale and left neelima area. 41. Chronic microvascular ischemic disease of the brain throughout the brain white matter bilaterally. 42. Left mastoid air cell fluid. 43. Left lower lobe airspace disease, questionable atelectasis or pneumonia. 44. Chronic microangiopathic changes of the brain. 45. Unchanged mid occipital soft tissue swelling. 46. End-stage renal disease, hemodialysis dependent three times a week with left upper extremity arteriovenous fistula. PLAN: At this time, the patient has been ordered, repeat labs for the morning. The patient has been started on heparin with Coumadin bridging, which was cleared by the Podiatry. The patient's consultation: 1. Cardiology. 2. Infectious Disease. 3. Nephrology. 4. Podiatry. CURRENT MEDICATIONS: 1. Benadryl 25 mg p.o. at bedtime p.r.n. 2. Colace 100 mg 3 times a day. 3. Coumadin 4 mg daily. 4. Cozaar 100 mg p.o. daily. 5. Cymbalta 60 mg daily. 6. Drisdol 50,000 units weekly. 7. Ecotrin 81 mg daily. 8. Folic acid 5 mg daily. 9. Heparin drip 12 units per kg per hour. 10. Humulin medium-dose sliding scale coverage. 11. Lipitor 40 mg daily. 12. Meropenem 500 mg IV q. 24h. 13. MiraLax 17 g twice a day. 14. Percocet 5/325 two tablets q. 4h. p.r.n. 15. Protonix 40 mg daily. 16. Sensipar 30 mg daily. 17. Tylenol No. 3 650 q. 4 p.r.n. 18. Vancomycin 500 IV Wednesday, Wednesday and Wednesday. The patient is on heart healthy diet. The patient has been ordered out of bed to chair. At present, the patient's further management will be dependent upon the patient's clinical condition, hemodynamic status and as per the patient's response to therapeutic intervention, as per the patient's diagnostic test results and as per recommendation by Infectious Disease, Cardiology, Nephrology and Podiatry. Dictated and electronically signed, not read. Steve Rincon MD MTDMatth[facility]
[2017-09-09] MEDS: Pantoprazole 20 mg EC Tab PO SCH ×2 (06:52→17:22)
[2017-09-09] MEDS: Heparin25000 units/250ml 1/2NS 25,000 UNITS/250 ML BAG IV PRN ×3 (07:16→22:59)
--- NOTE | 2017-09-09 07:29 | HP ---
LOCATION: Room 576, bed 2. CHIEF COMPLAINT: Weakness times several days. HISTORY OF PRESENT ILLNESS: This is a 66-year-old male with past medical history significant for endstage renal disease - on hemodialysis, cerebrovascular accident, hypertension, cataract, and diabetes, admitted with a right foot infection. The patient was in Transitional Care, was transferred to Surgery. The patient is now readmitted to hospital acute care for further care. PAST MEDICAL HISTORY: Significant for endstage renal disease - on hemodialysis, cerebrovascular accident, hypertension, cataract, right foot infection, and diabetes mellitus. PAST SURGICAL HISTORY: Significant for cataract surgery and left upper arm fistula. ALLERGIES: THE PATIENT HAS NO KNOWN ALLERGIES. MEDICATIONS: Reviewed. PHYSICAL EXAMINATION: VITAL SIGNS: On examination, temperature is 98, blood pressure is 120/70, and respirations 16. HEENT: Unremarkable. NECK: Supple. LUNGS: Decreased breath sounds. HEART: Normal S1 and S2. ABDOMEN: Soft, nontender. LABORATORY DATA: Reveals a white count of 13,600. Chemistry reveals a creatinine of 8.0. Procalcitonin is reported to be 1.46. The patient's throat culture reveals Stenotrophomonas maltophilia and another culture grew the same - Stenotrophomonas maltophilia, and a culture from 08/30/2017 did grow Enterococcus faecalis. ASSESSMENT AND PLAN: This is a 66-year-old male with a history of endstage renal disease - on hemodialysis, cerebrovascular accident, hypertension, and cataracts - status post surgery. The patient with right foot cellulitis and the patient had a gangrenous ulcer of the right foot and had partial fourth metatarsal amputation. We will check in the OR cultures and the pathology. The patient was on intermittent vancomycin and meropenem. We will follow closely with you. Cornell Pelaez MD
[2017-09-09] MEDS: Insulin Reg-MEDIUM-Coverage SC SCH ×3 (08:00→17:22)
[2017-09-09 08:21] LABS: BASO # 0.03 K/mm3 (0.0-2.0); BASO % 0.2 % (0.0-3.0); EOS # 0.5 (0.0-0.7); EOS % 4.2 % (1.5-5.0); GRAN # 8.34 (1.4-6.5); GRAN % 68.5 % (50.0-68.0); HEMOGLOBIN 9.8 g/dL (14.0-18.0); LYMPH # 2.2 (1.2-3.4); LYMPH % 18.2 % (22.0-35.0); MEAN CELL VOLUME 85.6 fl (80.0-105.0); MEAN CORPUSCULAR HEMOGLOBIN 27.1 pg (25.0-35.0); MEAN CORPUSCULAR HGB CONC 31.6 g/dl (31.0-37.0); MEAN PLATELET VOLUME 10.2 fl (7.0-11.0); MONO # 1.1 (0.1-0.6); MONO % 8.9 % (1.0-6.0); PLATELET COUNT 288 10^3/uL (120.0-450.0); RBC 3.62 10^6/uL (3.5-6.1); RED CELL DISTRIBUTION WIDTH 17.1 % (11.5-14.5); WHITE BLOOD COUNT 12.2 10^3/ul (4.5-11.0)
[2017-09-09 08:38] LABS: ALB/GLOB RATIO 1.1 (1.1-1.8); ALBUMIN 3.6 g/dL (3.0-4.8); BILIRUBIN,DIRECT 0.5 mg/dL (0.0-0.4); CALCIUM 8.5 mg/dL (8.4-10.5)
[2017-09-09 08:40] LABS: INR 0.99 (0.93-1.08); PARTIAL THROMBOPLASTIN TIME 88.6 Seconds (25.1-36.5); PROTHROMBIN TIME 11.4 SECONDS (9.4-12.5)
[2017-09-09 10:45] LABS: EOSINOPHIL 5 % (0.0-3.0); LYMPHOCYTE 12 % (22.0-35.0); MONOCYTE 10 % (1.0-6.0); NEUTROPHIL 73 % (50.0-70.0); NUCLEATED RED BLOOD CELL 1 %
[2017-09-09 10:47] LABS: ANISOCYTOSIS 1+; POIKILOCYTOSIS SLIGHT; POLYCHROMASIA SLIGHT
[2017-09-09 10:48] LABS: HYPOCHROMIA SLIGHT; LARGE PLATELETS PRESENT; TARGET CELLS SLIGHT
[2017-09-09 10:49] LABS: MICROCYTOSIS SLIGHT
[2017-09-09] MEDS: POLYETHYLENE GLYCOL 3350 17 GM/Dose PACKET PO SCH ×3 (10:59→18:07)
--- NOTE | 2017-09-09 11:18 | CP.PCM.PN ---
Subjective - Date & Time of Evaluation Date of Evaluation: 09/09/17 Time of Evaluation: 12:00 - Subjective Subjective: Medicine Note for Dr. Rincon Patient seen and examined at bedside. No acute event overnight. patient went for dialysis this morning. Patient is complaining of constipation. He states that he has not had BM in almost a week. Fleet enema was given and patient had small bm. Afterwards, he was complaining of excruciating pain so manual fecal disimpaction was performed. Patient tolerated procedure and feeling more comfortable. Objective - Vital Signs/Intake and Output Vital Signs (last 24 hours): Temp Pulse Resp BP Pulse Ox 98 F 64 20 152/73 H 100 09/09/17 06:00 09/09/17 06:00 09/09/17 06:00 09/09/17 06:00 09/09/17 06:00 Intake and Output: 09/09/17 09/09/17 06:59 18:59 Intake Total 583 220 Balance 583 220 - Medications Medications: Current Medications Acetaminophen (Tylenol 325mg Tab) 325 mg PO Q4H PRN PRN Reason: Pain, Mild (1-3) Last Admin: 09/09/17 07:50 Dose: 325 mg Acetaminophen (Tylenol 325mg Tab) 650 mg PO Q4H PRN PRN Reason: Pain, moderate (4-7) Last Admin: 09/08/17 23:15 Dose: 650 mg Aspirin (Ecotrin) 81 mg PO DAILY [facility] Last Admin: 09/09/17 10:59 Dose: 81 mg Atorvastatin Calcium (Lipitor) 40 mg PO DIN [facility] Last Admin: 09/08/17 18:14 Dose: 40 mg Cinacalcet (Sensipar) 30 mg PO DAILY [facility] Last Admin: 09/09/17 10:59 Dose: 30 mg Diphenhydramine HCl (Benadryl) 25 mg PO HS PRN PRN Reason: Insomnia Last Admin: 09/07/17 22:40 Dose: 25 mg Docusate Sodium (Colace) 100 mg PO TID [facility] Last Admin: 09/09/17 10:59 Dose: 100 mg Duloxetine HCl (Cymbalta) 60 mg PO DAILY [facility] Last Admin: 09/09/17 10:59 Dose: 60 mg Ergocalciferol (Drisdol 50,000 Intl Units Cap) 1 cap PO Q7D [facility] Last Admin: 09/07/17 16:00 Dose: Not Given Folic Acid (Folic Acid) 5 mg PO DAILY [facility] Last Admin: 09/09/17 10:59 Dose: 5 mg Hydromorphone HCl (Dilaudid) 0.5 mg IVP Q15MIN PRN PRN Reason: Pain, moderate (4-7) Vancomycin HCl (Vancomycin 500mg In Ns) 500 mg in 100 mls @ 100 mls/hr IVPB MWF [facility] Last Admin: 09/08/17 17:58 Dose: 100 mls/hr Heparin Sodium/Sodium Chloride (Heparin 46839 Units/250ml 1/2 Normal Saline) 25 ,000 units in 250 mls @ 14.37 mls/hr IV .[id number] PRN; Protocol; 12 UNITS/KG/HR PRN Reason: ADJUST RATE PER PROTOCOL Last Admin: 09/09/17 07:16 Dose: 12 units/kg/hr, 14.37 mls/hr Meropenem 500 mg/ Sodium (Chloride) 50 mls @ 100 mls/hr IVPB Q24H [facility] PRN Reason: Protocol Stop: 09/17/17 18:29 Last Admin: 09/08/17 17:35 Dose: 100 mls/hr Insulin Human Regular (Humulin R Med) 0 units SC ACHS [facility] PRN Reason: Protocol Last Admin: 09/09/17 08:00 Dose: Not Given Losartan Potassium (Cozaar) 100 mg PO DAILY [facility] Last Admin: 09/09/17 10:59 Dose: 100 mg Oxycodone/Acetaminophen (Percocet 5/325 Mg Tab) 2 tab PO Q4H PRN PRN Reason: Pain, severe (8-10) Stop: 09/10/17 08:54 Pantoprazole Sodium (Protonix Ec Tab) 20 mg PO 0600,1600 [facility] Last Admin: 09/09/17 06:52 Dose: Not Given Polyethylene Glycol (Miralax) 17 gm PO TID [facility] Last Admin: 09/09/17 10:59 Dose: 17 gm Warfarin Sodium (Coumadin) 4 mg PO 1800 [facility] PRN Reason: Protocol Last Admin: 09/08/17 17:55 Dose: 4 mg - Labs Labs: 09/09/17 08:00 09/09/17 08:00 PT 11.4 SECONDS (9.4-12.5) 09/09/17 08:00 INR 0.99 (0.93-1.08) 09/09/17 08:00 APTT 88.6 Seconds (25.1-36.5) H 09/09/17 08:00 - Constitutional Appears: In Acute Distress - Head Exam Head Exam: ATRAUMATIC, NORMOCEPHALIC - Eye Exam Eye Exam: Normal appearance - ENT Exam ENT Exam: Mucous Membranes Moist - Respiratory Exam Respiratory Exam: NORMAL BREATHING PATTERN - Cardiovascular Exam Cardiovascular Exam: REGULAR RHYTHM, +S1, +S2 - GI/Abdominal Exam GI & Abdominal Exam: Distended, Soft. absent: Tenderness - Rectal Exam Rectal Exam: Fecal Impaction Additional comments: normal sphincter tone, smooth delatorre, blood tinged stool - Extremities Exam Extremities Exam: Normal Capillary Refill - Neurological Exam Neurological Exam: Alert, Awake, CN II-XII Intact, Oriented x3 - Psychiatric Exam Psychiatric exam: Normal Affect. absent: Normal Mood - Skin Skin Exam: Dry, Intact, Normal Color, Warm Assessment and Plan - Assessment and Plan (Free Text) Plan: 66 year old male with PMH of ESRD on HD, history of CVA, HTN, cataracts, DM presents with right fourth toe gangrene s/p amputation. Patient is undergoing hemodialysis this morning. Continue physical therapy. Patient remains on Merrem and Vancomycin during HD. Fleet enema and manual fecal disimpaction. Added lactulose to bowel regimen. Will continue to follow closely. Nico Carey PGY1
--- NOTE | 2017-09-09 15:19 | PN ---
DATE: SUBJECTIVE: The patient is currently seen in his room, having had a short dialysis treatment today. The patient is complaining of severe constipation. He is sitting on a commode. He had 1.3 L of fluid removed with dialysis today. Tomorrow, the patient will resume his regular dialysis schedule. He is status post amputation of his right fourth toe. MEDICATIONS: Medication list reviewed. The patient is currently on Benadryl, Colace, Coumadin, Cozaar, Cymbalta, Dilaudid, vitamin D, Ecotrin, folic acid, heparin, insulin, Lipitor, meropenem, MiraLax, Percocet p.r.n., Protonix, Sensipar, Tylenol p.r.n., and vancomycin post dialysis. OBJECTIVE: INTAKE/OUTPUT: Intake 1558, output 200. VITAL SIGNS: Blood pressure 152/73, temperature 98, pulse 64 with a respiratory rate of 20. HEENT: Shows him to be normocephalic, atraumatic. Conjunctivae are pale. Sclerae are nonicteric. NECK: Supple. No neck vein distention. CHEST: Clear to auscultation and percussion. No rales, rhonchi, or wheezing. CARDIOVASCULAR: Shows a regular rate and rhythm with aortic stenosis, aortic insufficiency, mitral stenosis, and tricuspid regurgitation. No S3, no S4, no rub. ABDOMEN: Soft. Mildly distended. Obese. The patient is sitting on a commode, straining to try and move his bowels. No rebound, guarding, or masses appreciated. EXTREMITIES: Right lower extremity dressing with no drainage. No cyanosis, clubbing, or edema. LABORATORY DATA AND IMAGING: CBC: White blood cell count today 12.2, hemoglobin 9.8 with a platelet count of 288,000. Chemistry showed normal electrolytes. BUN 35 with a creatinine of 8. Calcium is 8.5. Phosphorus is excellent at 3.1, magnesium 2.2. Glucose is 120. Albumin is 3.6. Microbiology: Right foot cultures are positive for Gram-positive cocci. Isolation and sensitivity are pending. ASSESSMENT: 1. End-stage renal disease. The patient will continue dialysis, so go back to a Wednesday, Wednesday, and Wednesday schedule. He had alterations in his dialysis schedule because of the surgery. 2. History of [id number] diabetes mellitus. The patient's sugar is controlled on sliding scale insulin. 3. History of hypertension. Blood pressure control is acceptable. The patient will continue current blood pressure medications and cardiac medications. 4. History of atherosclerotic heart disease with valvular heart disease, currently stable. 5. History of peripheral vascular disease. The patient is status post amputations of his right fourth toe and fifth toe. He is receiving local wound care, remains on antibiotics and final culture, sensitivities, isolation are pending. 6. History of secondary hyperparathyroidism. Calcium, phosphorus are controlled. The patient will continue a renal diet. The patient may start binder therapy once his phosphorus level trends higher. 7. History of anemia. The patient will continue Aranesp on dialysis. We will check his iron levels with the next dialysis. PLAN: 1. Continue local wound care post amputation of his fourth and fifth right toe. 2. We will get the patient back to his Wednesday, Wednesday, and Wednesday dialysis schedule. 3. Complete a course of antibiotic therapy, currently on IV antibiotic therapy and again, final isolation and sensitivities are pending. 4. Continue renal diet and all dietary restrictions. 5. Continue sliding scale insulin. 6. Continue all present BP medications and cardiac medications. 7. For severe constipation, perhaps trial of lactulose if the antibiotic is not successful. Phillip Barth MD
[2017-09-09 16:00] LABS: IRON 69 ug/dL (45-180)
--- NOTE | 2017-09-09 16:01 | CP.PCM.PN ---
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 Patient is seen resting comfortably in bed, in NAD, and AA0x3. is at bedside during visitation. Patient reports that he is not doing well today because of constipation. Dressing is clean and intact without strikethrough. Patient denies acute overnight events. Patient denies n/v/sob/cp/chills or f. Objective - Vital Signs/Intake and Output Vital Signs (last 24 hours): Temp Pulse Resp BP Pulse Ox 98 F 64 20 152/73 H 100 09/09/17 06:00 09/09/17 06:00 09/09/17 06:00 09/09/17 06:00 09/09/17 06:00 Intake and Output: 09/09/17 09/09/17 06:59 18:59 Intake Total 583 460 Balance 583 460 - Medications Medications: Current Medications Acetaminophen (Tylenol 325mg Tab) 325 mg PO Q4H PRN PRN Reason: Pain, Mild (1-3) Last Admin: 09/09/17 07:50 Dose: 325 mg Acetaminophen (Tylenol 325mg Tab) 650 mg PO Q4H PRN PRN Reason: Pain, moderate (4-7) Last Admin: 09/08/17 23:15 Dose: 650 mg Aspirin (Ecotrin) 81 mg PO DAILY [facility] Last Admin: 09/09/17 10:59 Dose: 81 mg Atorvastatin Calcium (Lipitor) 40 mg PO DIN [facility] Last Admin: 09/08/17 18:14 Dose: 40 mg Cinacalcet (Sensipar) 30 mg PO DAILY [facility] Last Admin: 09/09/17 10:59 Dose: 30 mg Darbepoetin Celio (Aranesp) 100 mcg IVP ONCE ONE Stop: 09/10/17 06:01 Diphenhydramine HCl (Benadryl) 25 mg PO HS PRN PRN Reason: Insomnia Last Admin: 09/07/17 22:40 Dose: 25 mg Docusate Sodium (Colace) 100 mg PO TID [facility] Last Admin: 09/09/17 14:18 Dose: 100 mg Duloxetine HCl (Cymbalta) 60 mg PO DAILY [facility] Last Admin: 09/09/17 10:59 Dose: 60 mg Ergocalciferol (Drisdol 50,000 Intl Units Cap) 1 cap PO Q7D [facility] Last Admin: 09/07/17 16:00 Dose: Not Given Folic Acid (Folic Acid) 5 mg PO DAILY [facility] Last Admin: 09/09/17 10:59 Dose: 5 mg Hydromorphone HCl (Dilaudid) 0.5 mg IVP Q15MIN PRN PRN Reason: Pain, moderate (4-7) Vancomycin HCl (Vancomycin 500mg In Ns) 500 mg in 100 mls @ 100 mls/hr IVPB MWF [facility] Last Admin: 09/08/17 17:58 Dose: 100 mls/hr Heparin Sodium/Sodium Chloride (Heparin 14988 Units/250ml 1/2 Normal Saline) 25 ,000 units in 250 mls @ 14.37 mls/hr IV .[id number] PRN; Protocol; 12 UNITS/KG/HR PRN Reason: ADJUST RATE PER PROTOCOL Last Admin: 09/09/17 07:16 Dose: 12 units/kg/hr, 14.37 mls/hr Meropenem 500 mg/ Sodium (Chloride) 50 mls @ 100 mls/hr IVPB Q24H [facility] PRN Reason: Protocol Stop: 09/17/17 18:29 Last Admin: 09/08/17 17:35 Dose: 100 mls/hr Insulin Human Regular (Humulin R Med) 0 units SC ACHS [facility] PRN Reason: Protocol Last Admin: 09/09/17 15:44 Dose: Not Given Lactulose (Enulose) 20 gm PO BID [facility] Losartan Potassium (Cozaar) 100 mg PO DAILY [facility] Last Admin: 09/09/17 10:59 Dose: 100 mg Oxycodone/Acetaminophen (Percocet 5/325 Mg Tab) 2 tab PO Q4H PRN PRN Reason: Pain, severe (8-10) Stop: 09/10/17 08:54 Pantoprazole Sodium (Protonix Ec Tab) 20 mg PO 0600,1600 [facility] Last Admin: 09/09/17 06:52 Dose: Not Given Polyethylene Glycol (Miralax) 17 gm PO TID [facility] Last Admin: 09/09/17 14:18 Dose: 17 gm Warfarin Sodium (Coumadin) 4 mg PO 1800 [facility] PRN Reason: Protocol Last Admin: 09/08/17 17:55 Dose: 4 mg - Labs Labs: 09/09/17 08:00 09/09/17 08:00 PT 11.4 SECONDS (9.4-12.5) 09/09/17 08:00 INR 0.99 (0.93-1.08) 09/09/17 08:00 APTT 88.6 Seconds (25.1-36.5) H 09/09/17 08:00 - Constitutional Appears: Well, Non-toxic, No Acute Distress - Extremities Exam Extremities Exam: absent: Calf Tenderness Additional comments: Right foot focused. Dressing c/d/i with no strikethrough No calf tenderness with palpation. DERM: Full thickness surgical wound noted to lateral aspect of foot measuring 6 cm x 3 cm with mixed wound bed(80% granular, 10% fibrotic). Minor serous sangious drainage noted, no mal-odor noted, no purulence. No erythema. Hallux distal tuft ischemic change noted. 2nd and 3rd digit with slightly increase discoloration noted. VASC: DP pulses palpable 2/4. PT pulses weakly palpable 1/4. CFT unable to assess digits 1-4. Temperature gradient warm to warm. Nonpitting edema noted to forefoot, +1 pitting edema noted to right leg. NEURO: Gross sensation diminished. ORTHO: 4th and 5th partial metatarsal amputation. Tenderness to palpation to entire right foot. No pain on palpation digits 1-3. - Neurological Exam Neurological Exam: Alert, Awake, Oriented x3 - Psychiatric Exam Psychiatric exam: Normal Affect, Normal Mood Assessment and Plan - Assessment and Plan (Free Text) Assessment: 66 y.o male seen s/p partial 4th and 5th metatarsals amputation Plan: Patient examined and evaluated Discussed the plan in detail with attending Dr. Schneider Labs, vitals, chart reviewed WBC=12.2 Surgical site cleansed with betadine and saline solution, packed with idoforom, adaptatic, dsd and kelix with VERY LIGHT FELICIA Patient to remain NWB. Limited to WBAT to heels only for transfers to bathroom or on chair/bed for now Wound culture 09/07/17 gram positive cocci c/w abx per ID X-ray shows s/p 4th and 5th partial metatarsal amputation
[2017-09-09 16:10] LABS: % IRON SATURATION 25 % (20-55); TOTAL IRON BINDING CAPACITY 276 ug/dL (261-462)
[2017-09-09] MEDS: Meropenem 500 MG in Sodium Chloride 0.9% 50 ML IVPB SCH (18:07)
--- NOTE | 2017-09-09 19:09 | PN ---
DATE: 09/09/2017 SUBJECTIVE: The patient is without distress. PHYSICAL EXAMINATION: VITAL SIGNS: Blood pressure is 152/73, heart rate in the 60s. NECK: Negative JVD. LUNGS: Without rales. HEART: Reveals S1 and S2 with 2/6 systolic ejection murmur. EXTREMITIES: Bandage in the lower extremities. LABORATORY DATA: Noted. IMPRESSION: 1. Aortic valve stenosis. 2. Diabetes mellitus. 3. Peripheral vascular disease. 4. End-stage renal disease. 5. High probability for coronary artery disease. 6. Status post amputation of the digit in the lower extremity. Given these findings, the patient is back on his dialysis schedule. Hemodynamically, he is stable. Mayito Rolle MD
--- NOTE | 2017-09-10 00:40 | PN ---
DATE: 09/09/2017 SUBJECTIVE: Patient is seen today in dialysis. Patient is lying in the bed, but complaining of constipation for a week. This is the first time which patient stated about constipation since patient has been hospitalized. I have asked patient why he did not notify us about the constipation; the patient stated that the keeps forgetting about it. In addition, patient also did not notify the nurses about being constipated, though patient has been on Colace and MiraLax since admission. PHYSICAL EXAMINATION: VITAL SIGNS: T-max 98.3; pulse 64 to 71; blood pressure 152/73, 140/45, 152/71, 129/61; respirations 20, O2 sat 100%. HEENT: Head examination normocephalic, atraumatic. HEENT examination shows pinkish conjunctivae. Anicteric sclerae. No oropharyngeal lesion. NECK: No neck rigidity. CHEST: Kyphosis. LUNGS: Shows no rales, crackles or wheezing. Decreased breath sounds at the left base. CARDIOVASCULAR: S1, S2, regular rhythm. Positive systolic murmur left sternal border, right second intercostal space, left second intercostal space. ABDOMEN: Obese. Positive bowel sounds noted. No hepatosplenomegaly noted. No guarding, rebound, tenderness, or rigidity noted. GENITALIA: Male. RECTAL: Deferred. EXTREMITIES: Shows positive lymphedema of the lower extremity, right more than the left. NEUROLOGIC: Patient is alert, awake, oriented x3. Cranial nerves II through XII intact. Positive right foot dressing noted. Positive left upper extremity AV fistula. Positive thrill. VASCULAR: Palpable pulses. DIAGNOSTICS: On 09/09/2017, WBC 12.2, hemoglobin/hematocrit 9.8 and 31, platelets 288. Granulocytes, 68% segs. PT/PTT 11.4/38.6. Sodium 134, potassium 3.9, chloride 95, CO2 of 27, anion gap 16, BUN 35, creatinine 8.0, glucose 120, 132, 191. Iron 69, TIBC 226, ferritin 2600, iron saturation 25. Right foot wound cultures, gram-positive cocci. Right foot fourth toe gram-positive cocci isolated in broth. IMPRESSION AND PLAN: 1. Constipation. 2. Right foot fourth and fifth toe amputation. 3. Right foot fourth and fifth toe gram-positive cocci, Enterococcus faecalis and Stenotrophomonas maltophilia, osteomyelitis and gangrene. 4. Right foot fifth toe gangrene with patchy ulceration with [id number] inflammation and extensive necrosis with distal metatarsal bone showing mild acute osteomyelitis with proximal resection margin negative for acute osteomyelitis. 5. Gait dysfunction. 6. Deconditioning. 7. Morbid obesity with elevated body mass index of 42.6. 8. End-stage renal disease, hemodialysis dependent via the left upper extremity arteriovenous fistula three times a week. 9. Status post right foot fourth and fifth toe metatarsal amputation. 10. Hypertension. 11. Leukocytosis with granulocytosis. 12. Normocytic anemia. 13. Anemia of chronic kidney disease. 14. History of acute cerebral infarct, Coumadin requiring. 15. Insomnia. 16. Diabetic neuropathy. 17. Hypovitaminosis D. 18. Hyperlipidemia. 19. Secondary hyperparathyroidism. 1. Right foot fifth and fourth toe gangrene and osteomyelitis. 2. Status post right foot fourth and fifth toe and metatarsal amputation. 3. Status post right foot ulcer debridement. 4. Severe peripheral vascular disease of the lower extremity. 5. Hypertension. 6. Bilateral lower extremity lymphedema, right more than the left. 7. Severe gait dysfunction and deconditioning. 8. Morbid obesity. 9. Leukocytosis with granulocytosis. 10 Normocytic anemia. 11. End-stage renal disease, hemodialysis dependent 3 times a week via the left upper extremity arteriovenous fistula. 12. Insulin-requiring diabetes mellitus. 13. Gait dysfunction. 14. Status post right fourth toe amputation and debridement of the right foot ulcer. 15. Enterococcus faecalis and Stenotrophomonas maltophilia, right foot fourth and fifth toe osteomyelitis and gangrene and diabetic foot ulcer. 16. Coronary artery disease. 17. History of acute cerebral infarct. 18. Insomnia. 19. Constipation. 20. Diabetic neuropathy. 21. Hypovitaminosis D. 22. Insulin-requiring diabetes mellitus. 23. Hyperlipidemia. 24. Secondary hyperparathyroidism. 1. Status post right foot fourth toe amputation and debridement of the right foot ulcer. 2. Right foot toe gangrene and diabetic ulceration. 3. Peripheral vascular disease. 4. Status post right foot fourth digit gangrene with diabetes mellitus and peripheral vascular disease. 5. Status post irrigation and debridement of the diabetic and gangrene ulcer of the right foot. 6. Partial right foot fourth metatarsal amputation. 7. Status post right upper extremity PICC line placement. 8. Status post amputation of the right foot distal fourth and fifth metatarsal. 9. Morbid obesity with elevated body mass index. 10. Cardiomegaly. 11. Enterococcus faecalis and Stenotrophomonas maltophilia right foot toes diabetic foot ulceration and gangrene. 12. Insomnia. 13. Constipation. 14. Hypertension. 15. Diabetic neuropathy. 16. Hypovitaminosis D. 17. Insulin-requiring diabetes mellitus. 19. Hyperlipidemia. 20. Secondary hyperparathyroidism. 1. Right foot fifth toe Enterococcus faecalis and Stenotrophomonas maltophilia diabetic foot ulceration and gangrene. 2. Hypertension. 3. Bilateral lower extremity lymphedema and venous stasis. 4. Leukocytosis with granulocytosis. 5. Normocytic anemia. 6. Secondary hyperparathyroidism with elevated parathyroid hormone level of 130. 7. Hypovitaminosis D. 8. End-stage renal disease, hemodialysis dependent via the left upper extremity fistula three times a week. 9. Hyponatremia. 10. Gait dysfunction. 11. Morbid obesity. 12. Deconditioning. 13. Status post right upper extremity PICC line placement. 14. Peripheral vascular disease. 15. Right foot fourth toe gangrene and severe peripheral vascular disease. 16. Right foot fifth and fourth toe skin and skin structure infection severe, secondary to Enterococcus faecalis and Stenotrophomonas maltophilia infection. 17. Insomnia. 18. Constipation. 19. Diabetic neuropathy. 20. Insulin-requiring diabetes mellitus. 21. Hypercholesteremia. 22. Hyperphosphatemia. 1. Deconditioning. 2. Gait dysfunction. 3. Right foot fifth toe and fifth digit amputation and partial metatarsal resection, postoperative day 3. 4. Right foot fourth digit ischemia versus gangrene. 5. Right foot fifth toe Enterococcus faecalis and Stenotrophomonas maltophilia diabetic foot ulceration and gangrene and questionable osteomyelitis. 6. Right foot fifth toe ulceration and acute and extensive necrosis and acute osteomyelitis with proximal resection margin negative for osteomyelitis. 7. Severe atherosclerotic disease of the lower extremity. 8. Right foot fifth toe extensive necrosis with acute and chronic inflammation and ulceration. 9. Hypertension. 10. Morbid obesity with elevated body mass index of 42. 11. Leukocytosis with granulocytosis. 12. Normocytic anemia. 13. Status post packed red blood cell transfusion. 14. Insulin-requiring diabetes mellitus. 15. Hypovitaminosis D. 16. History of hyperlipidemia. 17. Mild hypophosphatemia. 18. Bilateral lower extremity lymphedema, right more than the left. 19. Peripheral vascular disease. 20. End-stage renal disease, hemodialysis dependent, three times a week via the left upper extremity AV fistula. 21. Constipation. 22. Insomnia. 23. Diabetic neuropathy. 24. Hyperlipidemia. 25. Right foot pain syndrome. 1. Deconditioning. 2. Gait dysfunction. 3. Right foot fifth digit metatarsal amputation with antibiotic-eluting beads and amputation of the right foot fifth toe. 4. Hypertension. 5. Bilateral lower extremity venous stasis and lymphedema. 6. Leukocytosis with granulocytosis. 7. Normocytic anemia with decreasing hemoglobin/hematocrit. 8. Status post packed red blood cell transfusion x2. 9. Elevated erythrocyte sedimentation rate of greater than 114. 10. Coumadin requiring for acute cerebellar infarct. 11. Hypophosphatemia. 12. End-stage renal disease, hemodialysis dependent. 13. Insulin-requiring diabetes mellitus with hyperglycemia. 14. Decreased HDL of 28. 15. Right foot fourth digit ischemia. 16. Peripheral vascular disease. 17. Insomnia. 18. Constipation. 19. Diabetic neuropathy. 20. Hypovitaminosis D. 21. Dyslipidemia. 22. Right foot pain syndrome. 23. Secondary hyperparathyroidism. 1. Right foot fifth digit metatarsal amputation with antibiotic-eluting beads and amputation of the right fifth foot toe. 2. Right foot fifth digit gangrene with questionable osteomyelitis. 3. Questionable postop right foot fifth digit amputation with partial metatarsal resection bleeding. 4. Distal fifth metatarsal amputation. 5. Hypertension. 6. Leukocytosis with granulocytosis. 7. Elevated erythrocyte sedimentation rate of 114. 8. Normocytic anemia with granulocytosis. 9. History of multiple acute cerebral infarct, Coumadin-dependent requiring. 10. End-stage renal disease, hemodialysis dependent via the left upper extremity arteriovenous fistula 3 times a week. 11. Insulin-requiring diabetes mellitus. 12. Morbid obesity with elevated body mass index of 60. 13. Right foot fifth toe Stenotrophomonas maltophilia gangrene, diabetic foot ulceration and cellulitis. 14. Left ventricular ejection fraction of 60%. 15. Pulmonary arterial hypertension with right ventricular systolic pressure of 46 mmHg. 16. Concentric left ventricular hypertrophy. 17. Moderately dilated left atrium. 18. Calcified aortic valve with decreased opening and severe valvular aortic stenosis. 19. Calcified mitral valve with decreased opening and trace mitral regurgitation and moderate mitral stenosis. 20. Tricuspid regurgitation with pulmonary arterial hypertension with right ventricular systolic pressure of 46 mmHg. 21. Gait dysfunction. 22. Deconditioning. 1. Stenotrophomonas maltophilia right foot fifth toe cellulitis, diabetic ulceration, gangrene versus possible osteomyelitis. 2. Hypertension. 3. Insulin requiring diabetes mellitus with hyperglycemia. 4. Morbid obesity. 5. Normocytic anemia. 6. Elevated erythrocyte sedimentation rate of 114. 7. Coumadin requiring cerebral infarct. 8. End-stage renal disease, hemodialysis dependent. 9. Elevated C-reactive of greater 15. 10. . 11. Critical aortic stenosis. 12. Right lower extremity peripheral vascular disease. 13. Right foot neuropathic pain. 14. History of acute infarct of the right parietal lobe, right frontal lobe and left temporal lobe involving the cortex and subcortical white matter. 15. History of multiple old chronic lacunar infarct of the bilateral basal ganglia, right centrum semiovale and left neelima. 16. History of chronic microvascular ischemic disease of the brain. 17. History of questionable mastoiditis. 18. History of lymphedema of the bilateral lower extremities. 19. Diabetic neuropathy. 20. Constipation. 21. Hypervitaminosis D. 22. Hyperlipidemia. 23. Secondary hyperparathyroidism. 1. Abdominal aortogram and bilateral lower extremity runoff with right selective view. 2. Focal right popliteal artery [place] atherectomy with drug-eluting balloon angioplasty. 3. Right anterior tibial artery and right posterior tibial artery angioplasty. 4. Successful focal right popliteal artery atherectomy and drug-eluting balloon angioplasty. 5. Successful right anterior and posterior tibial artery angioplasty. 6. Atretic multiple renal artery. 7. Right popliteal artery critical focal stenosis above the knee. 8. Critical stenosis of the mid right anterior tibial artery and severe stenosis of the proximal right posterior tibial artery and mid right posterior tibial artery. 9. Moderate pedal occlusive disease. 10. End-stage renal disease, hemodialysis-dependent. 11. Hypertension. 12. Right foot fifth toe diabetic ulceration secondary to Stenotrophomonas maltophilia ulceration. 13. Post abdominal aortogram and bilateral lower extremity runoff with left groin bleeding. 14. Peripheral vascular disease. 15. Anemia. 16. Elevated erythrocyte sedimentation rate of 114. 17. Coumadin requiring multiple cerebral infarct. 18. Insulin-requiring diabetes mellitus. 19. Bilateral lower extremity lymphedema. 20. Hyperglycemia. 21. Left groin bleeding slow resolving. 22. Morbid obesity. 23. Gait dysfunction. 24. Right foot fifth toe diabetic ulceration and gangrene with neuropathic pain. 25. Diabetic neuropathy. 26. Hypovitaminosis D. 27. Dyslipidemia. 28. Secondary hyperparathyroidism. 1. Right foot fifth toe gram-negative lars diabetic foot ulcer, cellulitis, gangrene versus questionable osteomyelitis. 2. Right lower extremity peripheral vascular disease with popliteal artery stenosis and tibial artery stenosis. 3. Morbid obesity with elevated body mass index of 60. 4. Normocytic anemia. 5. Granulocytosis. 6. Elevated erythrocyte sedimentation rate of 114. 7. History of multiple acute cerebral infarct, Coumadin-dependent. 8. Insulin-requiring diabetes mellitus with hyperglycemia. 9. End-stage renal disease, hemodialysis dependent. 10. Elevated erythrocyte sedimentation rate of greater than 114. 11. Elevated C-reactive protein of greater than 15. 12. Hyperprocalcitoninemia. 13. Gram-negative lars right foot fifth toe questionable osteomyelitis, diabetic foot ulcer and cellulitis. 14. Status post right lower extremity angiogram and angioplasty. 15. Failure fat suppression of the right foot with edema of the plantar subcutaneous fat of the right foot. 16. Right foot questionable plantar fasciitis with borderline plantar fascia thickening. 17. Right foot cellulitis. 18. Calcified peripheral vascular disease of the lower extremity. 19. Left lower extremity noncompressible waveforms consistent with vascular calcification. 20. Moderately blunted right calf peripheral vascular resistant waveform consistent with right superficial femoral artery occlusive disease. 21. Severely blunted right ankle and metatarsal waveform. 1. Right foot right toe skin and skin structure soft tissue infection. 2. Questionable osteomyelitis of the right foot digits including the fifth digit with relative failure suppression of the fat and the fat suppressed of the digit. 3. Cellulitis of the right foot. 4. Bilateral lower extremity lymphedema. 5. Morbid obesity. 6. Insulin-requiring diabetes mellitus. 7. Right foot fifth digit and foot gangrene. 8. Hypertension. 9. Normocytic anemia. 10. Granulocytosis. 11. Elevated erythrocyte sedimentation rate of greater than 114. 12. History of multiple acute cerebrovascular infarct with Coumadin requiring. 13. End-stage renal disease, hemodialysis dependent. 14. Hyperprocalcitoninemia. 15. Elevated C-reactive protein of greater than 15. 16. Hyperglycemia. 17. Gram-negative lars, right foot fifth toe, questionable osteomyelitis, cellulitis and gangrene. 19. History of recent cerebrovascular accident. 20. Constipation. 21. Diabetic neuropathy. 22. Hypovitaminosis D. 23. Dyslipidemia. 24. Secondary hyperparathyroidism. 1. Acute right foot fifth toe gangrene versus possible osteomyelitis. 2. Right lower extremity peripheral vascular disease. 3. Possible right foot fifth toe diabetic foot ulcer versus cellulitis. 4. Hypertension. 5. End-stage renal disease, hemodialysis dependent three times a week via the left upper extremity fistula. 6. Normocytic anemia. 7. Elevated erythrocyte sedimentation rate of 114. 8. Coumadin-dependent cerebral infarct. 9. Insulin-requiring diabetes mellitus with hyperglycemia. 10. Elevated C-reactive protein of greater than 15. 11. Hyperprocalcitoninemia. 12. Hyperglycemia. 13. Right superficial femoral artery occlusive disease. 14. Severely blunted right distal blood vessel waveform. 15. Calcified peripheral vascular disease. 16. Right leg moderately blunted peripheral vascular resistance waveform consistent with right superficial femoral artery occlusive disease. 17. Severely blunted right ankle and metatarsal waveform. 18. Morbid obesity. 1. Right foot fifth toe gangrene versus diabetic foot ulceration versus questionable underlying osteomyelitis. 2. Right foot fifth toe pain secondary to above. 3. Questionable possible severe diabetic neuropathy. 4. Normocytic anemia. 5. Elevated erythrocyte sedimentation rate of 114. 6. Coumadin-requiring atrial fibrillation with severe aortic valvular stenosis and mitral stenosis. 7. End-stage renal disease, hemodialysis dependent via the left upper extremity arteriovenous fistula. 8. Severe bilateral lower extremity lymphedema. 9. Elevated C-reactive protein of greater than 15. 10. Insulin-requiring diabetes mellitus. 11. History of diabetes. 12. History of hypertension. 13. History of dyslipidemia. 14. History of hypovitaminosis D. 15. History of diabetic neuropathy. 16. History of hyperlipidemia. 17. History of gastroesophageal reflux. 18. History of right foot pain. 1. Multiple acute cerebral infarct, probably multiple acute embolic cerebral infarct. 2. Severe aortic stenosis. 3. Left upper extremity arteriovenous fistula bleeding. 4. Multiple acute embolic cerebral infarct symptomatic with symptoms of dizziness, gait dysfunction. 5. End-stage renal disease, hemodialysis dependent via the left upper extremity arteriovenous fistula three times a week. 6. Anemia. 7. Insulin-requiring diabetes mellitus. 8. History of coronary artery disease. 9. Gait dysfunction. 10. Morbid obesity. 11. Bilateral lower extremity lymphedema. 12. Hypertension. 13. Secondary hyperparathyroidism. 14. Dyslipidemia. 1. Left arteriovenous fistula site bleeding, probably secondary to heparin anticoagulation. 2. Multiple acute cerebral infarct. 3. Multiple acute embolic cerebral infarct with symptoms of dizziness, weakness and gait dysfunction. 4. End-stage renal disease, hemodialysis dependent. 5. Lymphedema of the lower extremity. 6. Normocytic anemia. 7. Insulin-requiring diabetes mellitus with hyperglycemia and hemoglobin A1c of 7.8. 8. Hyperphosphatemia. 9. Hypovitaminosis D. 10. Hypertriglyceridemia. 11. Hypercholesterolemia. 12. Elevated LDL. 13. Diffuse bilateral slowing with abnormal EEG consistent with bilateral cerebral dysfunction. 14. Gait dysfunction. 15. Left upper extremity arteriovenous fistula site bleeding secondary to heparin anticoagulation. 1. Status post right foot fifth toe/fifth digit amputation and metatarsal amputation with antibiotic-eluting beads. 2. Right foot fifth toe/digit gangrene versus questionable osteomyelitis. 3. Status post right foot fifth toe/fifth digit amputation, postoperative day 1. 4. Right fourth digit ischemia. 5. Peripheral vascular disease. 6. Right foot fifth toe Stenotrophomonas maltophilia and Gram-positive cocci, diabetic foot ulceration, and gangrene. 7. Hypertension. 8. Normocytic anemia with decreasing hemoglobin and hematocrit. 9. Leukocytosis with granulocytosis. 10. Elevated erythrocyte sedimentation rate of 114. 11. History of multiple acute cerebral infarct, Coumadin requiring. 12. Hyper-procalcitoninemia. 13. Status post 2 units of packed red blood cells transfusion. 14. Gait dysfunction. 15. Deconditioning. 16. Nonhealing diabetic foot ulceration. 17. End-stage renal disease, hemodialysis dependent. 18. Anemia of chronic kidney disease. 19. Status post right foot fifth digit/fifth toe amputation and partial metatarsal resection, postoperative day 1. 20. A positive blood type. 21. Constipation. 22. Diabetic neuropathy. 23. Hypovitaminosis D. 24. Insulin-requiring diabetes mellitus. 25. Dyslipidemia. 26. Right foot pain syndrome. 27. Secondary hyperparathyroidism with hyperphosphatemia. 1. Right foot fifth digit metatarsal amputation with antibiotic-eluting beads and amputation of the right fifth foot toe. 2. Right foot fifth digit gangrene with questionable osteomyelitis. 3. Questionable postop right foot fifth digit amputation with partial metatarsal resection bleeding. 4. Distal fifth metatarsal amputation. 5. Hypertension. 6. Leukocytosis with granulocytosis. 7. Elevated erythrocyte sedimentation rate of 114. 8. Normocytic anemia with granulocytosis. 9. History of multiple acute cerebral infarct, Coumadin-dependent requiring. 10. End-stage renal disease, hemodialysis dependent via the left upper extremity arteriovenous fistula 3 times a week. 11. Insulin-requiring diabetes mellitus. 12. Morbid obesity with elevated body mass index of 60. 13. Right foot fifth toe Stenotrophomonas maltophilia gangrene, diabetic foot ulceration and cellulitis. 14. Left ventricular ejection fraction of 60%. 15. Pulmonary arterial hypertension with right ventricular systolic pressure of 46 mmHg. 16. Concentric left ventricular hypertrophy. 17. Moderately dilated left atrium. 18. Calcified aortic valve with decreased opening and severe valvular aortic stenosis. 19. Calcified mitral valve with decreased opening and trace mitral regurgitation and moderate mitral stenosis. 20. Tricuspid regurgitation with pulmonary arterial hypertension with right ventricular systolic pressure of 46 mmHg. 21. Gait dysfunction. 22. Deconditioning. 1. Stenotrophomonas maltophilia right foot fifth toe cellulitis, diabetic ulceration, gangrene versus possible osteomyelitis. 2. Hypertension. 3. Insulin requiring diabetes mellitus with hyperglycemia. 4. Morbid obesity. 5. Normocytic anemia. 6. Elevated erythrocyte sedimentation rate of 114. 7. Coumadin requiring cerebral infarct. 8. End-stage renal disease, hemodialysis dependent. 9. Elevated C-reactive of greater 15. 10. . 11. Critical aortic stenosis. 12. Right lower extremity peripheral vascular disease. 13. Right foot neuropathic pain. 14. History of acute infarct of the right parietal lobe, right frontal lobe and left temporal lobe involving the cortex and subcortical white matter. 15. History of multiple old chronic lacunar infarct of the bilateral basal ganglia, right centrum semiovale and left neelima. 16. History of chronic microvascular ischemic disease of the brain. 17. History of questionable mastoiditis. 18. History of lymphedema of the bilateral lower extremities. 19. Diabetic neuropathy. 20. Constipation. 21. Hypervitaminosis D. 22. Hyperlipidemia. 23. Secondary hyperparathyroidism. 1. Abdominal aortogram and bilateral lower extremity runoff with right selective view. 2. Focal right popliteal artery [place] atherectomy with drug-eluting balloon angioplasty. 3. Right anterior tibial artery and right posterior tibial artery angioplasty. 4. Successful focal right popliteal artery atherectomy and drug-eluting balloon angioplasty. 5. Successful right anterior and posterior tibial artery angioplasty. 6. Atretic multiple renal artery. 7. Right popliteal artery critical focal stenosis above the knee. 8. Critical stenosis of the mid right anterior tibial artery and severe stenosis of the proximal right posterior tibial artery and mid right posterior tibial artery. 9. Moderate pedal occlusive disease. 10. End-stage renal disease, hemodialysis-dependent. 11. Hypertension. 12. Right foot fifth toe diabetic ulceration secondary to Stenotrophomonas maltophilia ulceration. 13. Post abdominal aortogram and bilateral lower extremity runoff with left groin bleeding. 14. Peripheral vascular disease. 15. Anemia. 16. Elevated erythrocyte sedimentation rate of 114. 17. Coumadin requiring multiple cerebral infarct. 18. Insulin-requiring diabetes mellitus. 19. Bilateral lower extremity lymphedema. 20. Hyperglycemia. 21. Left groin bleeding slow resolving. 22. Morbid obesity. 23. Gait dysfunction. 24. Right foot fifth toe diabetic ulceration and gangrene with neuropathic pain. 25. Diabetic neuropathy. 26. Hypovitaminosis D. 27. Dyslipidemia. 28. Secondary hyperparathyroidism. 1. Right foot fifth toe gram-negative lars diabetic foot ulcer, cellulitis, gangrene versus questionable osteomyelitis. 2. Right lower extremity peripheral vascular disease with popliteal artery stenosis and tibial artery stenosis. 3. Morbid obesity with elevated body mass index of 60. 4. Normocytic anemia. 5. Granulocytosis. 6. Elevated erythrocyte sedimentation rate of 114. 7. History of multiple acute cerebral infarct, Coumadin-dependent. 8. Insulin-requiring diabetes mellitus with hyperglycemia. 9. End-stage renal disease, hemodialysis dependent. 10. Elevated erythrocyte sedimentation rate of greater than 114. 11. Elevated C-reactive protein of greater than 15. 12. Hyperprocalcitoninemia. 13. Gram-negative lars right foot fifth toe questionable osteomyelitis, diabetic foot ulcer and cellulitis. 14. Status post right lower extremity angiogram and angioplasty. 15. Failure fat suppression of the right foot with edema of the plantar subcutaneous fat of the right foot. 16. Right foot questionable plantar fasciitis with borderline plantar fascia thickening. 17. Right foot cellulitis. 18. Calcified peripheral vascular disease of the lower extremity. 19. Left lower extremity noncompressible waveforms consistent with vascular calcification. 20. Moderately blunted right calf peripheral vascular resistant waveform consistent with right superficial femoral artery occlusive disease. 21. Severely blunted right ankle and metatarsal waveform. 1. Right foot right toe skin and skin structure soft tissue infection. 2. Questionable osteomyelitis of the right foot digits including the fifth digit with relative failure suppression of the fat and the fat suppressed of the digit. 3. Cellulitis of the right foot. 4. Bilateral lower extremity lymphedema. 5. Morbid obesity. 6. Insulin-requiring diabetes mellitus. 7. Right foot fifth digit and foot gangrene. 8. Hypertension. 9. Normocytic anemia. 10. Granulocytosis. 11. Elevated erythrocyte sedimentation rate of greater than 114. 12. History of multiple acute cerebrovascular infarct with Coumadin requiring. 13. End-stage renal disease, hemodialysis dependent. 14. Hyperprocalcitoninemia. 15. Elevated C-reactive protein of greater than 15. 16. Hyperglycemia. 17. Gram-negative lars, right foot fifth toe, questionable osteomyelitis, cellulitis and gangrene. 19. History of recent cerebrovascular accident. 20. Constipation. 21. Diabetic neuropathy. 22. Hypovitaminosis D. 23. Dyslipidemia. 24. Secondary hyperparathyroidism. 1. Acute right foot fifth toe gangrene versus possible osteomyelitis. 2. Right lower extremity peripheral vascular disease. 3. Possible right foot fifth toe diabetic foot ulcer versus cellulitis. 4. Hypertension. 5. End-stage renal disease, hemodialysis dependent three times a week via the left upper extremity fistula. 6. Normocytic anemia. 7. Elevated erythrocyte sedimentation rate of 114. 8. Coumadin-dependent cerebral infarct. 9. Insulin-requiring diabetes mellitus with hyperglycemia. 10. Elevated C-reactive protein of greater than 15. 11. Hyperprocalcitoninemia. 12. Hyperglycemia. 13. Right superficial femoral artery occlusive disease. 14. Severely blunted right distal blood vessel waveform. 15. Calcified peripheral vascular disease. 16. Right leg moderately blunted peripheral vascular resistance waveform consistent with right superficial femoral artery occlusive disease. 17. Severely blunted right ankle and metatarsal waveform. 18. Morbid obesity. 1. Right foot fifth toe gangrene versus diabetic foot ulceration versus questionable underlying osteomyelitis. 2. Right foot fifth toe pain secondary to above. 3. Questionable possible severe diabetic neuropathy. 4. Normocytic anemia. 5. Elevated erythrocyte sedimentation rate of 114. 6. Coumadin-requiring atrial fibrillation with severe aortic valvular stenosis and mitral stenosis. 7. End-stage renal disease, hemodialysis dependent via the left upper extremity arteriovenous fistula. 8. Severe bilateral lower extremity lymphedema. 9. Elevated C-reactive protein of greater than 15. 10. Insulin-requiring diabetes mellitus. 11. History of diabetes. 12. History of hypertension. 13. History of dyslipidemia. 14. History of hypovitaminosis D. 15. History of diabetic neuropathy. 16. History of hyperlipidemia. 17. History of gastroesophageal reflux. 18. History of right foot pain. 1. Multiple acute cerebral infarct, probably multiple acute embolic cerebral infarct. 2. Severe aortic stenosis. 3. Left upper extremity arteriovenous fistula bleeding. 4. Multiple acute embolic cerebral infarct symptomatic with symptoms of dizziness, gait dysfunction. 5. End-stage renal disease, hemodialysis dependent via the left upper extremity arteriovenous fistula three times a week. 6. Anemia. 7. Insulin-requiring diabetes mellitus. 8. History of coronary artery disease. 9. Gait dysfunction. 10. Morbid obesity. 11. Bilateral lower extremity lymphedema. 12. Hypertension. 13. Secondary hyperparathyroidism. 14. Dyslipidemia. 1. Left arteriovenous fistula site bleeding, probably secondary to heparin anticoagulation. 2. Multiple acute cerebral infarct. 3. Multiple acute embolic cerebral infarct with symptoms of dizziness, weakness and gait dysfunction. 4. End-stage renal disease, hemodialysis dependent. 5. Lymphedema of the lower extremity. 6. Normocytic anemia. 7. Insulin-requiring diabetes mellitus with hyperglycemia and hemoglobin A1c of 7.8. 8. Hyperphosphatemia. 9. Hypovitaminosis D. 10. Hypertriglyceridemia. 11. Hypercholesterolemia. 12. Elevated LDL. 13. Diffuse bilateral slowing with abnormal EEG consistent with bilateral cerebral dysfunction. 14. Gait dysfunction. 15. Left upper extremity arteriovenous fistula site bleeding secondary to heparin anticoagulation. 1. Acute cerebral infarct symptomatic with symptoms of dizziness and gait dysfunction. 2. Acute embolic multiple cerebral infarct. 3. End-stage renal disease, hemodialysis dependent three times a week via left upper extremity AV fistula. 4. Embolic acute cerebrovascular accident. 5. Severe to critical aortic stenosis. 6. Abnormal EEG with presence of diffuse slowing consistent with mild bilateral cerebral dysfunction. 7. Hypertension. 8. Transient hypoxemia. 9. Normocytic anemia. 10. Insulin-requiring diabetes mellitus, uncontrolled with hemoglobin A1c of 7.8. 11. Hypovitaminosis D. 12. Hypertriglyceridemia, hypercholesteremia with elevated LDL and decreased HDL. 13. Gait dysfunction. 14. Deconditioning. 15. Bilateral lower extremity lymphedema. 16. Dyslipidemia. 17. Secondary hyperparathyroidism. 1. Multiple acute infarcts, dominant 3-mm infarct in the right parietal lobe with multiple acute smaller infarcts in the right parietal, right frontal, and left temporal lobes. 2. Gait dysfunction. 3. Dizziness. 4. Right parietal lobe 3.5-cm acute infarct. 5. Multiple acute smaller infarcts involving the right parietal lobe, right frontal lobe, left temporal lobe with punctate appearance. 6. Bilateral basal ganglia right centrum semiovale and left pontine multiple old chronic lacunar infarcts. 7. Chronic small vessel ischemic disease of the brain. 8. Left mastoid air cell fluid, questionable mastoiditis. 9. Left ventricular ejection fraction of 60%. 10. Severe valvular aortic stenosis. 11. Pulmonary arterial hypertension with right ventricular systolic pressure of 46 mmHg. 12. Concentric left ventricular atrophy. 13. Moderately dilated left atrium. 14. Calcified aortic valve with decreased opening. 15. Mild aortic regurgitation. 16. Severe valvular aortic stenosis. 17. Trace mitral regurgitation. 18. Moderate mitral stenosis. 19. Deconditioning. 20. Gait dysfunction. 21. Lymphedema of the lower extremity. 22. End-stage renal disease, hemodialysis dependent three times a week via the left upper extremity arteriovenous fistula. 23. Diffuse slowing on the consistent with bilateral cerebral dysfunction. 24. Insulin-requiring diabetes mellitus with hyperglycemia and hemoglobin A1c of 7.8. 25. History of hypertension. 26. Normocytic anemia. 27. Secondary hyperparathyroidism. 28. Uncontrolled insulin-requiring diabetes mellitus with hemoglobin A1c of 7.8. 29. Hypercholesteremia, hypertriglyceridemia with elevated high density lipoprotein and decreased low density lipoprotein. 30. Hypovitaminosis D. 1. Multiple acute brain infarct, probably embolic with right parietal lobe 3-cm dominant infarct and multiple acute infarct in the right parietal, right frontal and left temporal lobes. 2. Left internal carotid artery cavernous and supraclinoid segment stenosis. 3. Renal osteodystrophy. 4. Bilateral cerebral dysfunction. 5. Headache, dizziness, weakness and possible gait dysfunction. 6. Morbid obesity with elevated body mass index of 60. 7. Bilateral lower extremity lymphedema. 8. Chronic venous stasis of the lower extremity. 9. Normocytic anemia. 10. Insulin-requiring diabetes mellitus with hyperglycemia and hemoglobin A1c of 7.8. 11. Hyperglycemia. 12. Hypovitaminosis D. 13. Hypertriglyceridemia, hypercholesteremia with decreased HDL. 14. History of poor compliance. 15. Left ventricular ejection fraction of 60%. 16. Pulmonary arterial hypertension with right ventricular systolic pressure of 46 mmHg 17. Moderate concentric left ventricular hypertrophy. 18. Moderately dilated left atrium. 19. Calcified aortic valve with decreased opening and mild aortic regurgitation. 20. Severe valvular aortic stenosis. 21. Trace mitral regurgitation. 22. Moderate mitral stenosis. 23. Tricuspid regurgitation with right ventricular systolic pressure of 46 mmHg and pulmonary arterial hypertension. 24. Left internal carotid artery narrowing and irregularities of the cavernous and supraclinoid segment compatible with stenosis. 25. Calcified plaque of the left internal carotid artery cavernous and supraclinoid segment. 26. Nonvisualized left anterior cerebral artery. 27. Left lower lobe lingular atelectasis and scarring. 28. Right lung noncalcified 3-mm pulmonary nodule. 29. Cardiomegaly. 30. Bilateral gynecomastia. 31. Left subclavian vein stenting. 32. Possible chronic occlusion of the right brachiocephalic vein. 33. Pulmonary hypertension. 34. Mediastinal lymphadenopathy. 35. Cholelithiasis. 36. Renal osteodystrophy with diffusely dense appearance of the bones and multiple vertebral endplate lucencies and degenerative Schmorl node. 37. Pulmonary nodule. 38. Bilateral 20% to 39% proximal internal carotid artery stenosis. 39. Multiple acute infarct involving the cortex and subcortical white matter and a dominant acute infarct in the right parietal lobe, 3.5 cm, with multiple smaller acute infarct of the right parietal lobe, right frontal lobe and left temporal lobe with punctate appearance. 40. Bilateral basal ganglia, multiple small old chronic lacunar infarct of the bilateral basal ganglia, right centrum semiovale and left neelima area. 41. Chronic microvascular ischemic disease of the brain throughout the brain white matter bilaterally. 42. Left mastoid air cell fluid. 43. Left lower lobe airspace disease, questionable atelectasis or pneumonia. 44. Chronic microangiopathic changes of the brain. 45. Unchanged mid occipital soft tissue swelling. 46. End-stage renal disease, hemodialysis dependent three times a week with left upper extremity arteriovenous fistula. Plan at this time, patient has been given fleet enema with increase in MiraLax and continuation of the Colace and addition of the lactulose 20 gm p.o. b.i.d. Patient has been ordered serial labs, daily PT/PTT. Patient is to be followed by: 1. Cardiology. 2. Infectious Disease. 3. Nephrology. 4. Podiatry. Patient has been referred to social service manager. The patient's case is referred to [facility] for discharge planning. Patient is still refusing to go to acute rehab. Patient continues to state that he will prefer to have his antibiotic to be given on dialysis three times a week. The patient's current medications: The patient received, 1. Aranesp 100 mcg 1 dose today IV push. 2. Benadryl 25 mg at bedtime p.r.n. 3. Colace 100 mg three times a day. 4. Coumadin 4 mg daily. 5. Cozaar 100 mg daily. 6. Cymbalta 60 mg daily. 7. Drisdol 50,000 units weekly. 8. Aspirin 81 mg daily. 9. Lactulose 20 gm twice a day. 10. Fleet enema x1, if no response, then the second one will be given. 11. Folic acid 5 mg daily. 12. Heparin drip at 1200 units per hour. 13. Humulin R medium dose sliding scale coverage. 14. Lipitor 40 mg daily. 15. Meropenem 500 IV q. 24. 16. MiraLax 17 gm three times a day. 17. Percocet 5/325 two tablets p.o. q. 4 p.r.n. 18. Protonix 40 mg daily. 19. Sensipar 30 mg daily. 20. Tylenol 650 p.o. suppository q. 4 p.r.n. 21. Vancomycin 500 mg Wednesday, Wednesday, and Wednesday. Patient has been ordered out of bed to chair. Physical Therapy and Ambulation Therapy ordered. Patient seen by physical therapist yesterday, their recommendation is subacute rehab, which patient is reusing. Patient seen by Podiatry, their recommendation is patient to remain nonweightbearing on the right distal foot, limited weightbearing as tolerated to the heels for transfer to bathroom and to chair and bed now. Patient will be continued on the above therapeutic intervention. Patient's further management will be dependent upon the patient's clinical condition, hemodynamic status, as per the patient's response to therapeutic intervention, as per the patient's diagnostic test results, and as per recommendation by all the physicians involved in the care of the patient. Dictated and electronically signed, not read. Steve Rincon MD [facility]
--- NOTE | 2017-09-10 00:44 | PN ---
DATE: SUBJECTIVE: The patient is seen earlier today. No fevers. No chills. PHYSICAL EXAMINATION VITAL SIGNS: Temperature is 98, blood pressure is 150/70, and respiratory rate is 16. HEENT: Unremarkable. NECK: Supple. LUNGS: Decreased breath sounds. HEART: Normal S1 and S2. ABDOMEN: Soft, nontender. LABORATORY DATA: Reveals a white count of 12,200, hemoglobin of 9, and platelets of 288. Chemistries reveal a BUN of 35 and creatinine of 8. Microbiology reveals that right foot culture has gram-positive cocci. Review of orders reveals the patient to be on meropenem and vancomycin on Wednesday, Wednesday and Wednesday. ASSESSMENT AND PLAN: This is a 66-year-old male with a history of endstage renal disease - on hemodialysis, hypertension, cataracts, status post surgery, and partial fourth metatarsal amputation - waiting for culture and pathology - on intermittent vancomycin and meropenem. Cornell Pelaez MD
[2017-09-10 05:55] LABS: BASO # 0.02 K/mm3 (0.0-2.0); BASO % 0.1 % (0.0-3.0); EOS # 0.2 (0.0-0.7); EOS % 1.6 % (1.5-5.0); GRAN # 11.16 (1.4-6.5); GRAN % 80.6 % (50.0-68.0); HEMOGLOBIN 9.4 g/dL (14.0-18.0); LYMPH # 1.4 (1.2-3.4); LYMPH % 10.3 % (22.0-35.0); MEAN CORPUSCULAR HEMOGLOBIN 27.5 pg (25.0-35.0); MEAN PLATELET VOLUME 10.2 fl (7.0-11.0); MONO % 7.4 % (1.0-6.0); RBC 3.42 10^6/uL (3.5-6.1); RED CELL DISTRIBUTION WIDTH 17.7 % (11.5-14.5); WHITE BLOOD COUNT 13.9 10^3/ul (4.5-11.0)
[2017-09-10] MEDS ORDERED: Darbepoetin Alfa 100 mcg/ml Inj IVP ONE ×2 (06:00→12:25)
[2017-09-10 06:03] LABS: INR 1.1 (0.93-1.08); PARTIAL THROMBOPLASTIN TIME 55.8 Seconds (25.1-36.5); PROTHROMBIN TIME 12.7 SECONDS (9.4-12.5)
[2017-09-10 06:45] LABS: ALBUMIN 3.6 g/dL (3.0-4.8); CALCIUM 8.8 mg/dL (8.4-10.5)
--- NOTE | 2017-09-10 07:57 | CP.PCM.PN ---
Subjective - Date & Time of Evaluation Date of Evaluation: 09/10/17 Time of Evaluation: 07:15 - Subjective Subjective: (covering for Dr. Rincon) Patient is seen this morning. He is resting in bed. Patient had multiple bowel movements yesterday after receiving fleets enema. Objective - Vital Signs/Intake and Output Vital Signs (last 24 hours): Temp Pulse Resp BP Pulse Ox 97.5 F L 74 20 125/50 L 97 09/09/17 16:30 09/09/17 16:30 09/09/17 16:30 09/09/17 16:30 09/09/17 16:30 Intake and Output: 09/10/17 09/10/17 06:59 18:59 Intake Total 620 Balance 620 - Medications Medications: Current Medications Acetaminophen (Tylenol 325mg Tab) 325 mg PO Q4H PRN PRN Reason: Pain, Mild (1-3) Last Admin: 09/09/17 07:50 Dose: 325 mg Acetaminophen (Tylenol 325mg Tab) 650 mg PO Q4H PRN PRN Reason: Pain, moderate (4-7) Last Admin: 09/09/17 21:04 Dose: 650 mg Aspirin (Ecotrin) 81 mg PO DAILY [facility] Last Admin: 09/09/17 10:59 Dose: 81 mg Atorvastatin Calcium (Lipitor) 40 mg PO DIN [facility] Last Admin: 09/09/17 17:23 Dose: 40 mg Cinacalcet (Sensipar) 30 mg PO DAILY [facility] Last Admin: 09/09/17 10:59 Dose: 30 mg Diphenhydramine HCl (Benadryl) 25 mg PO HS PRN PRN Reason: Insomnia Last Admin: 09/07/17 22:40 Dose: 25 mg Docusate Sodium (Colace) 100 mg PO TID [facility] Last Admin: 09/09/17 18:06 Dose: 100 mg Duloxetine HCl (Cymbalta) 60 mg PO DAILY [facility] Last Admin: 09/09/17 10:59 Dose: 60 mg Ergocalciferol (Drisdol 50,000 Intl Units Cap) 1 cap PO Q7D [facility] Last Admin: 09/07/17 16:00 Dose: Not Given Folic Acid (Folic Acid) 5 mg PO DAILY [facility] Last Admin: 09/09/17 10:59 Dose: 5 mg Hydromorphone HCl (Dilaudid) 0.5 mg IVP Q15MIN PRN PRN Reason: Pain, moderate (4-7) Vancomycin HCl (Vancomycin 500mg In Ns) 500 mg in 100 mls @ 100 mls/hr IVPB MWF [facility] Last Admin: 09/08/17 17:58 Dose: 100 mls/hr Heparin Sodium/Sodium Chloride (Heparin 88714 Units/250ml 1/2 Normal Saline) 25 ,000 units in 250 mls @ 14.37 mls/hr IV .[id number] PRN; Protocol; 12 UNITS/KG/HR PRN Reason: ADJUST RATE PER PROTOCOL Last Admin: 09/09/17 22:59 Dose: 12 units/kg/hr, 14.37 mls/hr Meropenem 500 mg/ Sodium (Chloride) 50 mls @ 100 mls/hr IVPB Q24H [facility] PRN Reason: Protocol Stop: 09/17/17 18:29 Last Admin: 09/09/17 18:07 Dose: 100 mls/hr Insulin Human Regular (Humulin R Med) 0 units SC ACHS [facility] PRN Reason: Protocol Last Admin: 09/09/17 17:22 Dose: 1 units Lactulose (Enulose) 20 gm PO BID [facility] Last Admin: 09/09/17 18:03 Dose: 20 gm Losartan Potassium (Cozaar) 100 mg PO DAILY [facility] Last Admin: 09/09/17 10:59 Dose: 100 mg Oxycodone/Acetaminophen (Percocet 5/325 Mg Tab) 2 tab PO Q4H PRN PRN Reason: Pain, severe (8-10) Stop: 09/10/17 08:54 Pantoprazole Sodium (Protonix Ec Tab) 20 mg PO 0600,1600 [facility] Last Admin: 09/09/17 17:22 Dose: 20 mg Polyethylene Glycol (Miralax) 17 gm PO TID [facility] Last Admin: 09/09/17 18:07 Dose: 17 gm Warfarin Sodium (Coumadin) 4 mg PO 1800 [facility] PRN Reason: Protocol Last Admin: 09/09/17 18:06 Dose: 4 mg - Labs Labs: 09/10/17 05:47 09/10/17 05:47 PT 12.7 SECONDS (9.4-12.5) H 09/10/17 05:47 INR 1.10 (0.93-1.08) H 09/10/17 05:47 APTT 55.8 Seconds (25.1-36.5) H 09/10/17 05:47 - Constitutional Appears: No Acute Distress - Head Exam Head Exam: ATRAUMATIC, NORMOCEPHALIC - Respiratory Exam Respiratory Exam: Decreased Breath Sounds, Clear to Ausculation Bilateral, NORMAL BREATHING PATTERN - Cardiovascular Exam Cardiovascular Exam: +S1, +S2 - GI/Abdominal Exam GI & Abdominal Exam: Soft, Normal Bowel Sounds. absent: Tenderness - Extremities Exam Additional comments: right foot with bandage - Neurological Exam Neurological Exam: Alert, Awake, Oriented x3 Assessment and Plan - Assessment and Plan (Free Text) Assessment: s/p partial Right 4th and 5th metatarsal amputation ESRD on HD HTN Diabetes mellitus history of CVA Plan: Patient is status post amputation of right 4th and 5th metatarsals. He is on pain medication as needed. Yesterday, he received fleets enema for constipation and 4 bowel movements were recorded. continue wound care as per podiatry. continue PT.
[2017-09-10] MEDS: Insulin Reg-MEDIUM-Coverage SC SCH ×4 (07:59→21:57)
--- NOTE | 2017-09-10 09:52 | RAD ---
HISTORY: CONSTIPATION COMPARISON: No prior. FINDINGS: BOWEL: Multiple air-fluid levels are seen in the mildly dilated loops of small bowel. Findings are consistent with small bowel obstruction BONES: Normal. OTHER FINDINGS: None. IMPRESSION: Small bowel obstruction
[2017-09-10] MEDS: POLYETHYLENE GLYCOL 3350 17 GM/Dose PACKET PO SCH ×3 (10:02→17:20)
[2017-09-10] MEDS: Vancomycin 500mg in NS 500 MG/100 ML BAG IVPB SCH (10:15)
[2017-09-10] MEDS: Meropenem 500 MG in Sodium Chloride 0.9% 50 ML IVPB SCH (17:22)
[2017-09-10] MEDS: Pantoprazole 20 mg EC Tab PO SCH (17:27)
--- NOTE | 2017-09-10 17:59 | CP.PCM.PN ---
Subjective - Date & Time of Evaluation Date of Evaluation: 09/10/17 Time of Evaluation: 17:59 - Subjective Subjective: Podiatry Progress Note- Dr. 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 Patient is seen resting comfortably in bed, in NAD, and AA0x3. Patient reports that he is not doing well today because of constipation and having to go to dialysis. Dressing is clean and intact with sangious strikethrough to dressing. Patient denies acute overnight events. Patient denies n/v/sob/cp/chills or f. Objective - Vital Signs/Intake and Output Vital Signs (last 24 hours): Temp Pulse Resp BP Pulse Ox 97.7 F 50 L 18 148/78 100 09/10/17 12:47 09/10/17 07:30 09/10/17 07:30 09/10/17 07:30 09/10/17 07:30 Intake and Output: 09/10/17 09/10/17 06:59 18:59 Intake Total 620 240 Balance 620 240 - Medications Medications: Current Medications Acetaminophen (Tylenol 325mg Tab) 325 mg PO Q4H PRN PRN Reason: Pain, Mild (1-3) Last Admin: 09/10/17 12:47 Dose: 325 mg Acetaminophen (Tylenol 325mg Tab) 650 mg PO Q4H PRN PRN Reason: Pain, moderate (4-7) Last Admin: 09/09/17 21:04 Dose: 650 mg Aspirin (Ecotrin) 81 mg PO DAILY [facility] Last Admin: 09/10/17 10:04 Dose: 81 mg Atorvastatin Calcium (Lipitor) 40 mg PO DIN [facility] Last Admin: 09/10/17 17:20 Dose: 40 mg Cinacalcet (Sensipar) 30 mg PO DAILY [facility] Last Admin: 09/10/17 10:03 Dose: 30 mg Diphenhydramine HCl (Benadryl) 25 mg PO HS PRN PRN Reason: Insomnia Last Admin: 09/07/17 22:40 Dose: 25 mg Docusate Sodium (Colace) 100 mg PO TID [facility] Last Admin: 09/10/17 17:19 Dose: 100 mg Duloxetine HCl (Cymbalta) 60 mg PO DAILY [facility] Last Admin: 09/10/17 10:03 Dose: 60 mg Ergocalciferol (Drisdol 50,000 Intl Units Cap) 1 cap PO Q7D [facility] Last Admin: 09/07/17 16:00 Dose: Not Given Folic Acid (Folic Acid) 5 mg PO DAILY [facility] Last Admin: 09/10/17 10:04 Dose: 5 mg Vancomycin HCl (Vancomycin 500mg In Ns) 500 mg in 100 mls @ 100 mls/hr IVPB MWF [facility] Last Admin: 09/10/17 10:15 Dose: 100 mls/hr Heparin Sodium/Sodium Chloride (Heparin 29757 Units/250ml 1/2 Normal Saline) 25 ,000 units in 250 mls @ 14.37 mls/hr IV .[id number] PRN; Protocol; 12 UNITS/KG/HR PRN Reason: ADJUST RATE PER PROTOCOL Last Admin: 09/09/17 22:59 Dose: 12 units/kg/hr, 14.37 mls/hr Meropenem 500 mg/ Sodium (Chloride) 50 mls @ 100 mls/hr IVPB Q24H [facility] PRN Reason: Protocol Stop: 09/17/17 18:29 Last Admin: 09/10/17 17:22 Dose: 100 mls/hr Insulin Human Regular (Humulin R Med) 0 units SC ACHS [facility] PRN Reason: Protocol Last Admin: 09/10/17 17:33 Dose: Not Given Lactulose (Enulose) 20 gm PO BID [facility] Last Admin: 09/10/17 17:20 Dose: 20 gm Losartan Potassium (Cozaar) 100 mg PO DAILY [facility] Last Admin: 09/10/17 10:17 Dose: Not Given Pantoprazole Sodium (Protonix Ec Tab) 20 mg PO 0600,1600 [facility] Last Admin: 09/10/17 17:27 Dose: 20 mg Polyethylene Glycol (Miralax) 17 gm PO TID [facility] Last Admin: 09/10/17 17:20 Dose: 17 gm Warfarin Sodium (Coumadin) 4 mg PO 1800 [facility] PRN Reason: Protocol Last Admin: 09/10/17 17:20 Dose: 4 mg - Labs Labs: 09/10/17 05:47 09/10/17 05:47 PT 12.7 SECONDS (9.4-12.5) H 09/10/17 05:47 INR 1.10 (0.93-1.08) H 09/10/17 05:47 APTT 55.8 Seconds (25.1-36.5) H 09/10/17 05:47 - Constitutional Appears: Well, Non-toxic, No Acute Distress - Extremities Exam Additional comments: Right foot focused. Dressing c/d/i with sangious strikethrough to the dressing No calf tenderness with palpation. DERM: Full thickness surgical wound noted to lateral aspect of foot measuring 6 cm x 3 cm with mixed wound bed(80% granular, 10% fibrotic). Minor serous sangious drainage noted during the dressing change, no mal-odor noted, no purulence. No erythema. Hallux distal tuft ischemic change noted, more maceration than yesterday. 2nd and 3rd digit with slightly increase discoloration noted with maceration noted. VASC: DP pulses palpable 2/4. PT pulses weakly palpable 1/4. CFT unable to assess digits 1-4. Temperature gradient warm to warm. Nonpitting edema noted to forefoot, +1 pitting edema noted to right leg. NEURO: Gross sensation diminished. ORTHO: 4th and 5th partial metatarsal amputation. Tenderness to palpation to entire right foot. No pain on palpation digits 1-3. - Neurological Exam Neurological Exam: Alert, Awake - Psychiatric Exam Psychiatric exam: Normal Affect, Normal Mood Assessment and Plan - Assessment and Plan (Free Text) Assessment: 66 y.o male seen s/p partial 4th and 5th metatarsals amputation Plan: Patient examined and evaluated Discussed the plan in detail with attending Dr. Schneider Labs, vitals, chart reviewed WBC=13.9 Surgical site cleansed with betadine and saline solution, packed with idoforom, dsd and kelix with VERY LIGHT FELICIA Patient to remain NWB. Limited to WBAT to heels only for transfers to bathroom or on chair/bed for now Wound culture 09/07/17Enterococcus Faecalis c/w abx per ID X-ray shows s/p 4th and 5th partial metatarsal amputation Podiatry will continue to follow patient while in house
--- NOTE | 2017-09-10 20:05 | CP.PCM.PN ---
Subjective - Date & Time of Evaluation Date of Evaluation: 09/10/17 Time of Evaluation: 12:25 - Subjective Subjective: Comfortable, no fevers, not in distress. Objective - Vital Signs/Intake and Output Vital Signs (last 24 hours): Temp Pulse Resp BP Pulse Ox 97.9 F 50 L 18 148/78 100 09/10/17 07:30 09/10/17 07:30 09/10/17 07:30 09/10/17 07:30 09/10/17 07:30 Intake and Output: 09/10/17 09/10/17 06:59 18:59 Intake Total 620 Balance 620 - Medications Medications: Current Medications Acetaminophen (Tylenol 325mg Tab) 325 mg PO Q4H PRN PRN Reason: Pain, Mild (1-3) Last Admin: 09/09/17 07:50 Dose: 325 mg Acetaminophen (Tylenol 325mg Tab) 650 mg PO Q4H PRN PRN Reason: Pain, moderate (4-7) Last Admin: 09/09/17 21:04 Dose: 650 mg Aspirin (Ecotrin) 81 mg PO DAILY [facility] Last Admin: 09/09/17 10:59 Dose: 81 mg Atorvastatin Calcium (Lipitor) 40 mg PO DIN [facility] Last Admin: 09/09/17 17:23 Dose: 40 mg Cinacalcet (Sensipar) 30 mg PO DAILY [facility] Last Admin: 09/09/17 10:59 Dose: 30 mg Diphenhydramine HCl (Benadryl) 25 mg PO HS PRN PRN Reason: Insomnia Last Admin: 09/07/17 22:40 Dose: 25 mg Docusate Sodium (Colace) 100 mg PO TID [facility] Last Admin: 09/09/17 18:06 Dose: 100 mg Duloxetine HCl (Cymbalta) 60 mg PO DAILY [facility] Last Admin: 09/09/17 10:59 Dose: 60 mg Ergocalciferol (Drisdol 50,000 Intl Units Cap) 1 cap PO Q7D [facility] Last Admin: 09/07/17 16:00 Dose: Not Given Folic Acid (Folic Acid) 5 mg PO DAILY [facility] Last Admin: 09/09/17 10:59 Dose: 5 mg Hydromorphone HCl (Dilaudid) 0.5 mg IVP Q15MIN PRN PRN Reason: Pain, moderate (4-7) Vancomycin HCl (Vancomycin 500mg In Ns) 500 mg in 100 mls @ 100 mls/hr IVPB MWF [facility] Last Admin: 09/08/17 17:58 Dose: 100 mls/hr Heparin Sodium/Sodium Chloride (Heparin 38924 Units/250ml 1/2 Normal Saline) 25 ,000 units in 250 mls @ 14.37 mls/hr IV .[id number] PRN; Protocol; 12 UNITS/KG/HR PRN Reason: ADJUST RATE PER PROTOCOL Last Admin: 09/09/17 22:59 Dose: 12 units/kg/hr, 14.37 mls/hr Meropenem 500 mg/ Sodium (Chloride) 50 mls @ 100 mls/hr IVPB Q24H [facility] PRN Reason: Protocol Stop: 09/17/17 18:29 Last Admin: 09/09/17 18:07 Dose: 100 mls/hr Insulin Human Regular (Humulin R Med) 0 units SC ACHS [facility] PRN Reason: Protocol Last Admin: 09/10/17 07:59 Dose: Not Given Lactulose (Enulose) 20 gm PO BID [facility] Last Admin: 09/09/17 18:03 Dose: 20 gm Losartan Potassium (Cozaar) 100 mg PO DAILY [facility] Last Admin: 09/09/17 10:59 Dose: 100 mg Pantoprazole Sodium (Protonix Ec Tab) 20 mg PO 0600,1600 [facility] Last Admin: 09/09/17 17:22 Dose: 20 mg Polyethylene Glycol (Miralax) 17 gm PO TID [facility] Last Admin: 09/09/17 18:07 Dose: 17 gm Warfarin Sodium (Coumadin) 4 mg PO 1800 [facility] PRN Reason: Protocol Last Admin: 09/09/17 18:06 Dose: 4 mg - Labs Labs: 09/10/17 05:47 09/10/17 05:47 PT 12.7 SECONDS (9.4-12.5) H 09/10/17 05:47 INR 1.10 (0.93-1.08) H 09/10/17 05:47 APTT 55.8 Seconds (25.1-36.5) H 09/10/17 05:47 - Constitutional Appears: Chronically Ill - Head Exam Head Exam: NORMAL INSPECTION - Neck Exam Neck Exam: absent: Meningismus - Respiratory Exam Respiratory Exam: Decreased Breath Sounds - Cardiovascular Exam Cardiovascular Exam: +S1, +S2 - GI/Abdominal Exam GI & Abdominal Exam: Soft. absent: Tenderness - Extremities Exam Additional comments: right foot with dressings in place Assessment and Plan - Assessment and Plan (Free Text) Plan: Assessment right foot skin and skin structure infection, severe, growing Stenotrophomonas, S/P right 5th toe amputation and 5th metatarsal partial amputation as well as partial 4th metatarsal amputation, growing Stenotrophomonas and E. faecalis POD #3 ESRD on HD history of CVA HTN cataracts DM Plan continue Merrem and intermittent Vanco IV; follow up OR cx and pathology will monitor clinically
[2017-09-10] MEDS: Heparin25000 units/250ml 1/2NS 25,000 UNITS/250 ML BAG IV PRN (23:25)
[2017-09-11] MEDS: Pantoprazole 20 mg EC Tab PO SCH ×2 (05:47→17:56)
[2017-09-11] MEDS: Insulin Reg-MEDIUM-Coverage SC SCH ×5 (08:21→22:38)
[2017-09-11 08:53] LABS: BASO # 0.04 K/mm3 (0.0-2.0); BASO % 0.3 % (0.0-3.0); EOS # 0.2 (0.0-0.7); EOS % 1.5 % (1.5-5.0); GRAN # 12.14 (1.4-6.5); GRAN % 79.1 % (50.0-68.0); HEMOGLOBIN 9.6 g/dL (14.0-18.0); LYMPH # 1.8 (1.2-3.4); LYMPH % 11.7 % (22.0-35.0); MEAN CELL VOLUME 86.8 fl (80.0-105.0); MEAN CORPUSCULAR HEMOGLOBIN 27.6 pg (25.0-35.0); MEAN CORPUSCULAR HGB CONC 31.8 g/dl (31.0-37.0); MEAN PLATELET VOLUME 9.9 fl (7.0-11.0); MONO # 1.1 (0.1-0.6); MONO % 7.4 % (1.0-6.0); RBC 3.48 10^6/uL (3.5-6.1); RED CELL DISTRIBUTION WIDTH 18.2 % (11.5-14.5); WHITE BLOOD COUNT 15.4 10^3/ul (4.5-11.0)
[2017-09-11 09:00] LABS: INR 1.44 (0.93-1.08); PARTIAL THROMBOPLASTIN TIME 87.6 Seconds (25.1-36.5); PROTHROMBIN TIME 16.7 SECONDS (9.4-12.5)
[2017-09-11 09:03] LABS: ALB/GLOB RATIO 1.1 (1.1-1.8); ALBUMIN 3.8 g/dL (3.0-4.8); BILIRUBIN,DIRECT 0.7 mg/dL (0.0-0.4)
--- NOTE | 2017-09-11 09:28 | CP.PCM.PN ---
Subjective - Date & Time of Evaluation Date of Evaluation: 09/11/17 Time of Evaluation: 09:24 - Subjective Subjective: Podiatry Progress Note- Dr. 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 Patient is seen with Dr. Schneider this morning. Patient is seen resting comfortably in bed, in NAD, and AA0x3. Dressing is clean and intact with sangious strikethrough to dressing. Patient denies acute overnight events. Denies of any other pedal complains at this time. Patient denies n/v/sob/cp/chills or f. Objective - Vital Signs/Intake and Output Vital Signs (last 24 hours): Temp Pulse Resp BP Pulse Ox 98 F 71 20 178/88 H 100 09/11/17 06:00 09/11/17 06:00 09/11/17 06:00 09/11/17 06:00 09/11/17 06:00 Intake and Output: 09/11/17 09/11/17 06:59 18:59 Intake Total 0 Balance 0 - Medications Medications: Current Medications Acetaminophen (Tylenol 325mg Tab) 325 mg PO Q4H PRN PRN Reason: Pain, Mild (1-3) Last Admin: 09/11/17 08:32 Dose: 325 mg Acetaminophen (Tylenol 325mg Tab) 650 mg PO Q4H PRN PRN Reason: Pain, moderate (4-7) Last Admin: 09/10/17 22:34 Dose: 650 mg Aspirin (Ecotrin) 81 mg PO DAILY [facility] Last Admin: 09/10/17 10:04 Dose: 81 mg Atorvastatin Calcium (Lipitor) 40 mg PO DIN [facility] Last Admin: 09/10/17 17:20 Dose: 40 mg Cinacalcet (Sensipar) 30 mg PO DAILY [facility] Last Admin: 09/10/17 10:03 Dose: 30 mg Diphenhydramine HCl (Benadryl) 25 mg PO HS PRN PRN Reason: Insomnia Last Admin: 09/07/17 22:40 Dose: 25 mg Docusate Sodium (Colace) 100 mg PO TID [facility] Last Admin: 09/10/17 17:19 Dose: 100 mg Duloxetine HCl (Cymbalta) 60 mg PO DAILY [facility] Last Admin: 03/09/18 10:03 Dose: 60 mg Ergocalciferol (Drisdol 50,000 Intl Units Cap) 1 cap PO Q7D [facility] Last Admin: 09/07/17 16:00 Dose: Not Given Folic Acid (Folic Acid) 5 mg PO DAILY [facility] Last Admin: 09/10/17 10:04 Dose: 5 mg Vancomycin HCl (Vancomycin 500mg In Ns) 500 mg in 100 mls @ 100 mls/hr IVPB MWF [facility] Last Admin: 09/10/17 10:15 Dose: 100 mls/hr Heparin Sodium/Sodium Chloride (Heparin 52772 Units/250ml 1/2 Normal Saline) 25 ,000 units in 250 mls @ 14.37 mls/hr IV .[id number] PRN; Protocol; 12 UNITS/KG/HR PRN Reason: ADJUST RATE PER PROTOCOL Last Admin: 09/10/17 23:25 Dose: 12 units/kg/hr, 14.37 mls/hr Meropenem 500 mg/ Sodium (Chloride) 50 mls @ 100 mls/hr IVPB Q24H [facility] PRN Reason: Protocol Stop: 09/17/17 18:29 Last Admin: 09/10/17 17:22 Dose: 100 mls/hr Insulin Human Regular (Humulin R Med) 0 units SC ACHS [facility] PRN Reason: Protocol Last Admin: 09/11/17 08:21 Dose: Not Given Lactulose (Enulose) 20 gm PO BID [facility] Last Admin: 09/10/17 17:20 Dose: 20 gm Losartan Potassium (Cozaar) 100 mg PO DAILY [facility] Last Admin: 09/10/17 10:17 Dose: Not Given Pantoprazole Sodium (Protonix Ec Tab) 20 mg PO 0600,1600 [facility] Last Admin: 09/11/17 05:47 Dose: Not Given Polyethylene Glycol (Miralax) 17 gm PO TID [facility] Last Admin: 09/10/17 17:20 Dose: 17 gm Warfarin Sodium (Coumadin) 4 mg PO 1800 [facility] PRN Reason: Protocol Last Admin: 09/10/17 17:20 Dose: 4 mg - Labs Labs: 09/11/17 08:30 09/10/17 05:47 PT 16.7 SECONDS (9.4-12.5) H 09/11/17 08:30 INR 1.44 (0.93-1.08) H 09/11/17 08:30 APTT 87.6 Seconds (25.1-36.5) H 09/11/17 08:30 - Constitutional Appears: Well, Non-toxic, No Acute Distress - Extremities Exam Additional comments: Right foot focused. Dressing c/d/i with sanguineous strikethrough to the dressing No calf tenderness with palpation. DERM: Full thickness surgical wound noted to lateral aspect of foot measuring 6 cm x 3 cm with mixed wound bed(90% granular, 10% fibrotic). Minor serous sanguineous drainage noted during the dressing change, no mal-odor noted, no purulence. No erythema. Hallux distal tuft ischemic change noted, more maceration than yesterday. 2nd and 3rd digit with slightly increase discoloration noted with maceration noted. VASC: DP pulses palpable 2/4. PT pulses weakly palpable 1/4. CFT unable to assess digits 1-4. Temperature gradient warm to warm. Nonpitting edema noted to forefoot, +1 pitting edema noted to right leg. NEURO: Gross sensation diminished. ORTHO: 4th and 5th partial metatarsal amputation. Tenderness to palpation to entire right foot. No pain on palpation digits 1-3. - Neurological Exam Neurological Exam: Alert, Awake, Oriented x3 - Psychiatric Exam Psychiatric exam: Normal Affect, Normal Mood Assessment and Plan - Assessment and Plan (Free Text) Assessment: 66 y.o male seen s/p partial 4th and 5th metatarsals amputation Plan: Patient examined and evaluated with attending Dr. Schneider Labs, vitals, chart reviewed WBC=15.4 Surgical site appears to have no signs of acute infections Surgical site cleansed with betadine and saline solution, packed with idoforom, dsd and kelix, FELICIA Patient to remain NWB. Limited to WBAT to heels only for transfers to bathroom or on chair/bed for now Wound culture 09/07/17 Enterococcus Faecalis c/w abx per ID X-ray shows s/p 4th and 5th partial metatarsal amputation Podiatry will continue to follow patient while in house
[2017-09-11] MEDS: POLYETHYLENE GLYCOL 3350 17 GM/Dose PACKET PO SCH ×3 (10:02→17:44)
--- NOTE | 2017-09-11 10:43 | PN ---
DATE: SUBJECTIVE: The patient is currently seen lying comfortable in bed. He remains on a heparin drip. He tolerated dialysis well yesterday without any difficulties. He still continues to complain of constipation with only mild relief. MEDICATIONS: Medication list reviewed. The patient is on Benadryl, Colace, Coumadin, Cozaar, Cymbalta, vitamin D, Ecotrin, lactulose, folic acid, heparin drip, insulin, Lipitor, meropenem, MiraLax, Protonix, Sensipar, Tylenol p.r.n. and vancomycin. OBJECTIVE: INTAKE/OUTPUT: Intake 1080, output hemodialysis. VITAL SIGNS: Blood pressure ranging from 148-178 systolic, diastolics ranging from 50-88. Temperature 98, respiratory rate 20 with a pulse of 71. HEENT: Normocephalic, atraumatic. Conjunctivae are pale. Sclerae nonicteric. NECK: Supple. No neck vein distention. CHEST: Clear to auscultation and percussion. No rales, rhonchi or wheezing. CARDIOVASCULAR: Shows a regular rate and rhythm with aortic stenosis, aortic insufficiency, mitral stenosis and tricuspid regurgitation. No S3. No S4. No rub. ABDOMEN: Soft. Obese. Minimal distention. No rebound, guarding or masses. EXTREMITIES: The patient has a dressing over his right foot. This was not removed. No cyanosis, clubbing or edema. LABORATORY DATA AND IMAGING: CBC from this morning, white blood cell count 15.4 with a hemoglobin of 9.6, platelet count is 244,000. Chemistries from yesterday showed a BUN of 30 with a creatinine of 7.1. Electrolytes are otherwise okay. Glucose 170. Calcium, phosphorus, magnesium level are all normal. Albumin was 3.6. Microbiology: Wound cultures were positive for Enterococcus. ASSESSMENT: 1. End-stage renal disease. The patient will continue Wednesday, Wednesday, Wednesday dialysis. Next dialysis is scheduled for 09/13/2017. 2. History of [id number] diabetes mellitus. The patient's glucose control is acceptable on sliding scale insulin. 3. History of hypertension. Systolic blood pressures are fluctuating, but on a whole acceptable. The patient will continue present blood pressure medications and cardiac medications. 4. History of atherosclerotic heart disease with valvular heart disease, currently stable. 5. History of peripheral vascular disease. Status post amputations of his right fourth and fifth toe. He is receiving local wound care. He remains on antibiotics for the Enterococcus which is growing out of the wound. 6. History of secondary hyperparathyroidism. Calcium and phosphorus are well controlled. The patient will continue a renal diet. He will continue on Sensipar are binders to be restarted if his phosphorus level elevates. 7. History of anemia. The patient will continue Aranesp on dialysis as per protocol. The patient's iron saturations were 25%, which were acceptable. 8. On IV heparin and on Coumadin. The patient's last INR was 1.1 with a PT of 12.7. Coumadin dose is being adjusted pending coags. PLAN: 1. Continue local wound care. He states Podiatry came by this morning and did a dressing change. 2. For severe constipation, continue present medications and avoid narcotics. 3. Complete a course of antibiotic for enterococcus growing from the wound culture. 4. Continue renal diet and all dietary restrictions. 5. Continue sliding scale insulin. 6. Transition the patient from heparin to Coumadin as his PT/INR becomes therapeutic. Phillip Barth MD
--- NOTE | 2017-09-11 12:02 | PN ---
DATE: LOCATION: The patient is in [facility] in [place], room 576, bed 2. SUBJECTIVE: The patient is admitted for surgical procedure, amputation of 2 toes. The patient has past history of hypertension, diabetes mellitus, chronic renal failure. The patient is on renal dialysis. The patient is seen this morning. He is comfortable, eating his breakfast and he is getting wound care by Dr. Schneider, pressing department supervisor, and the patient is also covered by Infectious Disease for his infection of the toe. The patient had a couple of toes amputated earlier during the week. PHYSICAL EXAMINATION: VITAL SIGNS: This morning; pulse is 71, blood pressure 170/90, respirations are 20, O2 sat is 100% on room air. HEENT: The patient's head is normocephalic. Scarcity of hair. NECK: JVP is flat. Carotid pulse is present. LUNGS: Trachea central. Breath sounds are vesicular. No adventitious sounds. HEART: Normal sinus rhythm. S1, S2 present. ABDOMEN: Soft. Obesity present. Liver and spleen not palpable. CENTRAL NERVOUS SYSTEM: The patient is conscious, rational and oriented. MEDICATIONS: He is on Benadryl 25 mg at night. The patient gets Colace. The patient is on Coumadin 4 mg p.o. daily. His PT/INR will be monitored. The patient is on losartan 100 mg daily. The patient gets Cymbalta 60 mg daily, aspirin 81 mg daily and the patient is also getting folic acid 1 mg daily, heparin drip. The patient is on insulin coverage for diabetes and he goes to Dialysis 3 times a week. He is also placed on meropenem 500 mg q.24 hours, Lipitor 40 mg daily. The patient is getting vancomycin 500 mg. The patient gets Tylenol for pain. He is also on Sensipar for renal failure. PLAN: His condition is stable. The patient is doing clinically well at this time. Continue current management. Prabha Zarco MD [facility]
[2017-09-11] MEDS: Oxycodone/Acetaminophen 5/325 mg Tab PO PRN (15:01)
--- NOTE | 2017-09-11 16:03 | PN ---
DATE: SUBJECTIVE: The patient is seen early this morning, in no acute distress, nontoxic. PHYSICAL EXAMINATION: VITAL SIGNS: Temperature is 98, blood pressure is 145/50, respiratory rate of 20, heart rate is 66. HEENT: Examination of HEENT is unremarkable. NECK: Supple. LUNGS: Have decreased breath sounds. HEART: Normal S1 and S2. ABDOMEN: Soft. LABORATORY DATA: Laboratory examination reveals a white count of 15,400, hemoglobin of 9, creatinine 7.1. Microbiology reveals Enterococcus faecalis on the right foot. ASSESSMENT AND PLAN: A 66-year-old male with a right foot skin and skin structure growing Stenotrophomonas and status post right fifth toe amputation with metatarsal partial amputation. Currently on intermittent vancomycin and meropenem, postprocedure day #4 in a patient who has end-stage renal disease, on hemodialysis and cerebrovascular accident, on meropenem and intermittent vancomycin Wednesday, Wednesday, Wednesday. We will check on the pathology. Cornell Pelaez MD
[2017-09-11] MEDS: Meropenem 500 MG in Sodium Chloride 0.9% 50 ML IVPB SCH (17:45)
[2017-09-11] MEDS: Heparin25000 units/250ml 1/2NS 25,000 UNITS/250 ML BAG IV PRN (17:58)
--- NOTE | 2017-09-11 19:06 | PCM.FALL ---
Post Fall Progress Note - Post Fall Fall Date: 09/11/17 Fall Time: 18:50 Description of Fall: Patient was sitting on edge of bed and reaching for his drink and slipped onto his bottom. During the fall, his R side PICC line fell out without any acute bleeding. PICC line found to be hanging on IV pole and is >30cm in length. Patient is A&O x 3. He reports he did not hit his head and does not have any pain, bruising or bleeding. - Post Fall Exam Vital Sign: Temp Pulse Resp BP Pulse Ox 97.9 F 76 20 111/91 H 96 09/11/17 15:35 09/11/17 15:35 09/11/17 15:35 09/11/17 15:35 09/11/17 15:35 Skull Exam: Negative for: Scalp wound, Scalp hematoma Eye Exam: Positive for: Pupils equal, Pupils reactive Ear Exam: Negative for: Bleeding Nose Exam: Negative for: Bleeding Skin Exam: Negative for: Lacerations, Grazes, Bruising Mouth Exam: Negative for: Tongue bitten Neck Exam: Negative for: Tenderness, Tingling, Weakness Spinal Exam: Negative for: Tenderness, Tingling, Weakness Chest Exam: Negative for: Difficulty breathing Abdomen Exam: Negative for: Tenderness Pelvic Exam: Negative for: Tenderness, Hematuria Arm Exam: Negative for: Deformity, Alteration in range of movement Leg Exam: Negative for: Deformity, Alteration in range of movement Other pertinent findings: R arm, PICC line fell out, no bleeding or hematoma at site. Impression/Plan: Patient s/p fall on bottom and PICC line pulled out. PMD Dr. Rincon notified. Will obtain CXR to confirm there are no fragments of PICC line left in the patient. Will re-consult Dr. Valdes as per PMD for replacement of PICC.
--- NOTE | 2017-09-11 23:49 | OP ---
PROCEDURE DATE: 09/07/2017 TECHNICAL PUBLICATIONS WRITER: Dann Gallo DPM, PGY-1. ANESTHESIOLOGIST: Javi Allen MD. TYPE OF ANESTHESIA: IV sedation with local. PREOPERATIVE DIAGNOSIS: Right fourth gangrenous digit secondary to diabetes and peripheral vascular disease. POSTOPERATIVE DIAGNOSIS: Right fourth gangrenous digit secondary to diabetes and peripheral vascular disease. PROCEDURE: 1. Partial fourth metatarsal amputation 2. Irrigation and debridement of diabetic gangrenous ulceration. INDICATIONS: This patient is a 66-year-old male with the above diagnosis. Patient recently underwent a revascularization followed by a right fifth digit amputation with partial metatarsal resection secondary to gangrene and OM. During that time, it was noted that the fourth digit presented with dusky coloration and ischemic changes. Given recent revascularization, podiatry continues to closely monitor the digit; however, the digit became progressively more ischemic with necrosis noted to the entire fourth digit with darken discoloration noted. Patient has a right fourth gangrenous digit secondary to peripheral vascular disease and diabetes. Patient has exhausted all conservative treatment at this time and now requires surgical intervention. The patient signed the consent after careful explanation of risks, benefits, complications, and alternatives for surgical procedure. No guarantees were given nor implied. NPO status was confirmed prior to taking patient to the OR. PREPARATION: The patient was brought into the operating room and placed on the operating room table in the supine position. A time-out was performed for the identification of the correct patient and procedure. The patient received a total of 10 mL of 0.5% Marcaine plain in a local block fashion to the fourth right digit. The right foot was then prepped and draped in a normal sterile manner and the procedure began. No tourniquet was used during the entire procedure. DESCRIPTION OF PROCEDURE: Attention was then drawn to the dorsal aspect of the right fourth digit where a circular incision was made around the entire digit using a #15-blade at the level of the IPJ, and using a #15 blade, the incision was then extended down through the subcutaneous layers down to the level of the bone. Then a towel clamp was used to stabilize the fourth digit and utilizing a #15 blade, the fourth digit was then disarticulated at the level of the fourth right PIPJ. Next, utilizing a #15 blade and a pickup, all soft tissue and periosteum surrounding the distal fourth metatarsal was freed until distal bone was exposed. Next, utilizing a sagittal saw, the distal metatarsal was resected and passed off the operating field. Next, utilizing a fresh #15 blade, all necrotic and nonviable tissue was then excisionally debrided from the surgical site. Next attention was drawn to right 5th metatarsal where the previous partial 5th metatarsal is noted; Next, utilizing a #15 blade and a pickup, soft tissue and periosteum surrounding the distal parital 5th metatarsal was freed until distal bone was exposed. Next, utilizing a sagittal saw, the distal metatarsal was resected and passed off the operating field. Next, utilizing a fresh #15 blade, all necrotic and nonviable tissue was then excisionally debrided from the surgical site. PROCEDURE #2: Irrigation and debridement of diabetic and gangrenous ulceration. Attention was directed to the fifth partial metatarsal site at the lateral aspect of the right foot with an opening measuring approximately 6 cm x 4 cm x 4cm. Wound base is mainly granular with necrotic tissue centrally. Using a #15 blade and a dissecting scissor, all nonviable and necrotic tissue was excisionally debrided until healthy granular tissue is noted. The wound was then copiously flushed with a bacitracin infused sterile saline using a bulb syringe. Next, a retention suture was placed in a horizontal mattress suture type style at the mid point of the entire surgical site using a 0 Prolene. The surgical wound was then packed with iodoform and dressed with Betadine-soaked Adaptic and dressed with Betadine-soaked gauze, 4 x 4s, ABDs, and Kerlix. POSTOPERATIVE CONDITION: The patient tolerated the local anesthesia and procedure well and was escorted to the recovery room with the neurovascular status intact to the right foot. Patient will remain in-house and Podiatry will continue to follow. Upon discharge, patient is to follow up with Dr. Schneider within 1 week. LISHA Carrillo DPM [facility] # [id number] [facility]ISION[facility]
[2017-09-12] MEDS: Oxycodone/Acetaminophen 5/325 mg Tab PO PRN ×4 (01:28→21:21)
[2017-09-12] MEDS: Pantoprazole 20 mg EC Tab PO SCH ×2 (06:20→17:38)
[2017-09-12 07:08] LABS: BASO # 0.02 K/mm3 (0.0-2.0); BASO % 0.2 % (0.0-3.0); EOS # 0.3 (0.0-0.7); EOS % 2.1 % (1.5-5.0); GRAN # 8.62 (1.4-6.5); GRAN % 71.4 % (50.0-68.0); HEMOGLOBIN 8.7 g/dL (14.0-18.0); LYMPH % 16.5 % (22.0-35.0); MEAN CELL VOLUME 87.1 fl (80.0-105.0); MEAN CORPUSCULAR HEMOGLOBIN 27.3 pg (25.0-35.0); MEAN CORPUSCULAR HGB CONC 31.3 g/dl (31.0-37.0); MEAN PLATELET VOLUME 10.1 fl (7.0-11.0); MONO # 1.2 (0.1-0.6); MONO % 9.8 % (1.0-6.0); RBC 3.19 10^6/uL (3.5-6.1); RED CELL DISTRIBUTION WIDTH 18.5 % (11.5-14.5); WHITE BLOOD COUNT 12.1 10^3/ul (4.5-11.0)
[2017-09-12 07:16] LABS: INR 2.06 (0.93-1.08); PARTIAL THROMBOPLASTIN TIME 62.4 Seconds (25.1-36.5)
[2017-09-12 07:17] LABS: ALB/GLOB RATIO 1.1 (1.1-1.8); ALBUMIN 3.5 g/dL (3.0-4.8); BILIRUBIN,DIRECT 0.7 mg/dL (0.0-0.4)
[2017-09-12] MEDS: Insulin Reg-MEDIUM-Coverage SC SCH ×4 (08:05→22:00)
[2017-09-12] MEDS: POLYETHYLENE GLYCOL 3350 17 GM/Dose PACKET PO SCH ×3 (09:02→17:28)
--- NOTE | 2017-09-12 10:03 | PN ---
DATE: LOCATION: The patient is in room 576, bed 2. SUBJECTIVE: The patient was admitted with infection of his toes. The patient had amputation done. The patient's past history is significant in that he has history of diabetes mellitus, insulin dependent. The patient has a history of coronary artery disease and hypertension. The patient also has chronic renal failure, he is on dialysis Wednesday, Wednesday and Wednesday. PHYSICAL EXAMINATION VITAL SIGNS: The patient's vital signs this morning, pulse is 75, blood pressure 140/64, respirations of 20. HEENT: The patient's head is normocephalic. NECK: Thyroid is not enlarged. JVP is flat. LUNGS: Trachea is central. Breath sounds are vesicular. HEART: Normal sinus rhythm. S1, S2 present. ABDOMEN: Soft. Obesity present. CENTRAL NERVOUS SYSTEM: No focal deficits. EXTREMITIES: The patient has had amputation of toe, right leg. The patient is being treated with antibiotics for this. The patient also had a fall last night. He stated he just tripped out of the bed while trying to take something off the table. He did not hurt himself, but the PICC line came out. His INR today is 2.1, so we discontinued the heparin. We will keep the patient on 4 mg of Coumadin. The patient's other medications and insulin coverage will be continued. LABORATORY DATA: The patient's hemoglobin is 8.7 and white count is 12,100. The patient's hemoglobin level will be assessed by the Renal Team Physician and if the patient needs support, the patient will be treated during dialysis tomorrow. MEDICATIONS: The patient is on Coumadin 4 mg as mentioned. The patient is on losartan. The patient is on Cymbalta, aspirin. The patient is on folic acid, insulin coverage, Lipitor. Antibiotics, meropenem and vancomycin. The patient is on oxycodone for pain. His overall prognosis is guarded. Condition is stable. The patient does not need a PICC line at this time, but if the patient needs continued antibiotic treatment, then he will need a PICC line or a midline placed tomorrow. Prabha Zarco MD [facility] # [id number] SHAILESH
--- NOTE | 2017-09-12 12:04 | RAD ---
HISTORY: R PICC line pulled out COMPARISON: 09/06/2017 FINDINGS: LUNGS: No active pulmonary disease. PLEURA: No significant pleural effusion identified, no pneumothorax apparent. CARDIOVASCULAR: No radiographic findings to suggest acute or significant cardiovascular disease. PICC line identified previously is no longer visible. Stable position left subclavian stent. OSSEOUS STRUCTURES: No significant abnormalities. VISUALIZED UPPER ABDOMEN: Normal. OTHER FINDINGS: None. IMPRESSION: No active disease.
--- NOTE | 2017-09-12 13:57 | CP.PCM.PN ---
Subjective - Date & Time of Evaluation Date of Evaluation: 09/12/17 Time of Evaluation: 13:54 - Subjective Subjective: Podiatry Progress Note- Dr. 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 Patient is seen resting comfortably in bed, in NAD, and AA0x3. Dressing is clean and intact with severe sanguineous strikethrough to dressing. Patient denies acute overnight events. Reports that he does not really walk. Reports that he fell out of the bed yesterday. States that he had tingling type pain but is managing the pain well with the medications. Denies of any other pedal complains at this time. Patient denies n/ v/sob/cp/chills or f. Objective - Vital Signs/Intake and Output Vital Signs (last 24 hours): Temp Pulse Resp BP Pulse Ox 97.7 F 75 20 140/64 98 09/12/17 06:00 09/12/17 06:00 09/12/17 06:00 09/12/17 06:00 09/12/17 06:00 Intake and Output: 09/12/17 09/12/17 06:59 18:59 Intake Total Balance - Medications Medications: Current Medications Acetaminophen (Tylenol 325mg Tab) 325 mg PO Q4H PRN PRN Reason: Pain, Mild (1-3) Last Admin: 09/11/17 08:32 Dose: 325 mg Acetaminophen (Tylenol 325mg Tab) 650 mg PO Q4H PRN PRN Reason: Pain, moderate (4-7) Last Admin: 09/11/17 21:08 Dose: 650 mg Aspirin (Ecotrin) 81 mg PO DAILY [facility] Last Admin: 09/12/17 09:02 Dose: 81 mg Atorvastatin Calcium (Lipitor) 40 mg PO DIN [facility] Last Admin: 09/11/17 17:55 Dose: 40 mg Cinacalcet (Sensipar) 30 mg PO DAILY [facility] Last Admin: 09/12/17 09:02 Dose: 30 mg Diphenhydramine HCl (Benadryl) 25 mg PO HS PRN PRN Reason: Insomnia Last Admin: 09/11/17 21:08 Dose: 25 mg Docusate Sodium (Colace) 100 mg PO TID [facility] Last Admin: 03/11/18 09:03 Dose: Not Given Duloxetine HCl (Cymbalta) 60 mg PO DAILY [facility] Last Admin: 09/12/17 09:02 Dose: 60 mg Ergocalciferol (Drisdol 50,000 Intl Units Cap) 1 cap PO Q7D [facility] Last Admin: 09/07/17 16:00 Dose: Not Given Folic Acid (Folic Acid) 5 mg PO DAILY [facility] Last Admin: 09/12/17 09:01 Dose: 5 mg Vancomycin HCl (Vancomycin 500mg In Ns) 500 mg in 100 mls @ 100 mls/hr IVPB MWF [facility] Last Admin: 09/10/17 10:15 Dose: 100 mls/hr Meropenem 500 mg/ Sodium (Chloride) 50 mls @ 100 mls/hr IVPB Q24H [facility] PRN Reason: Protocol Stop: 09/17/17 18:29 Last Admin: 09/11/17 17:45 Dose: 100 mls/hr Insulin Human Regular (Humulin R Med) 0 units SC ACHS [facility] PRN Reason: Protocol Last Admin: 09/12/17 11:50 Dose: Not Given Lactulose (Enulose) 20 gm PO BID [facility] Last Admin: 09/12/17 09:03 Dose: Not Given Losartan Potassium (Cozaar) 100 mg PO DAILY [facility] Last Admin: 09/12/17 09:02 Dose: 100 mg Oxycodone/Acetaminophen (Percocet 5/325 Mg Tab) 1 tab PO Q4H PRN PRN Reason: Pain, moderate (4-7) Stop: 09/14/17 14:33 Last Admin: 09/12/17 08:58 Dose: 1 tab Pantoprazole Sodium (Protonix Ec Tab) 20 mg PO 0600,1600 [facility] Last Admin: 09/12/17 06:20 Dose: 20 mg Polyethylene Glycol (Miralax) 17 gm PO TID [facility] Last Admin: 09/12/17 09:02 Dose: Not Given Warfarin Sodium (Coumadin) 4 mg PO 1800 [facility] PRN Reason: Protocol Last Admin: 09/11/17 17:54 Dose: 4 mg - Labs Labs: 09/12/17 06:30 09/10/17 05:47 PT 24.0 SECONDS (9.4-12.5) H 09/12/17 06:30 INR 2.06 (0.93-1.08) H 09/12/17 06:30 APTT 62.4 Seconds (25.1-36.5) H 09/12/17 06:30 - Constitutional Appears: Well, Non-toxic, No Acute Distress - Extremities Exam Additional comments: Right foot focused. Dressing c/d/i with sanguineous strikethrough to the dressing No calf tenderness with palpation. DERM: Full thickness surgical wound noted to lateral aspect of foot measuring 6 cm x 3 cm with mixed wound bed(90% granular, 10% fibrotic). Minor serous sanguineous drainage noted during the dressing change, no mal-odor noted, no purulence. No erythema. Hallux distal tuft ischemic change noted, more maceration than yesterday on the plantar lateral flap. 2nd and 3rd digit with slightly increase discoloration noted with maceration noted. VASC: DP pulses palpable 2/4. PT pulses weakly palpable 1/4. CFT unable to assess digits 1-4. Temperature gradient warm to warm. Nonpitting edema noted to forefoot, +1 pitting edema noted to right leg. NEURO: Gross sensation diminished. ORTHO: 4th and 5th partial metatarsal amputation. Tenderness to palpation to entire right foot. No pain on palpation digits 1-3. - Neurological Exam Neurological Exam: Alert, Awake, Oriented x3 - Psychiatric Exam Psychiatric exam: Normal Affect, Normal Mood Assessment and Plan - Assessment and Plan (Free Text) Assessment: 66 y.o male seen s/p partial 4th and 5th metatarsals amputation Plan: Patient examined and evaluated Plan discussed with attending Dr. Schneider Labs, vitals, chart reviewed WBC=12.1 Surgical site appears to have no signs of acute infections Surgical site cleansed with betadine and saline solution, packed with betadine soaked gauz, and covered with dsd, ABD and kelix, FELICIA Patient to remain NWB. Limited to WBAT to heels only for transfers to bathroom or on chair/bed for now Wound culture 09/07/17 Enterococcus Faecalis c/w abx per ID X-ray shows s/p 4th and 5th partial metatarsal amputation Podiatry will continue to follow patient while in house
[2017-09-12] MEDS: Meropenem 500 MG in Sodium Chloride 0.9% 50 ML IVPB SCH (17:27)
--- NOTE | 2017-09-12 18:03 | PN ---
DATE: 09/12/2017 SUBJECTIVE: The patient is in bed, in no acute distress, nontoxic. PHYSICAL EXAMINATION: VITAL SIGNS: Temperature is 98, blood pressure is 140/60, respiratory rate of 20. HEENT: Unremarkable. NECK: Supple. LUNGS: Have decreased breath sounds. HEART: Normal S1, S2. ABDOMEN: Soft, nontender. LABORATORY DATA: Reveals a white count of 12,100, hemoglobin of 8, platelets of 236. Chemistries reveals the patient has a BUN of 30, creatinine of 7.1. The patient had a chest x-ray, no active disease. ASSESSMENT AND PLAN: This is a 66-year-old male with a right foot skin and skin structure growing Stenotrophomonas and status post right fifth toe amputation with metatarsal partial amputation. On intermittent vancomycin and meropenem, postprocedure day #5 with end-stage renal disease, on hemodialysis; history of cerebrovascular accident. On vancomycin Wednesday, Wednesday, Wednesday. He is on meropenem. Awaiting for pathology report. The patient is microbiology reveals Enterococcus faecalis sensitive to ampicillin. Cornell Pelaez MD
[2017-09-13] MEDS: Pantoprazole 20 mg EC Tab PO SCH ×3 (06:24→18:02)
[2017-09-13] MEDS: Oxycodone/Acetaminophen 5/325 mg Tab PO PRN ×2 (06:28→21:03)
[2017-09-13 07:28] LABS: BASO # 0.06 K/mm3 (0.0-2.0); BASO % 0.5 % (0.0-3.0); EOS # 0.4 (0.0-0.7); EOS % 3.5 % (1.5-5.0); GRAN # 7.78 (1.4-6.5); GRAN % 68.9 % (50.0-68.0); HEMOGLOBIN 8.3 g/dL (14.0-18.0); LYMPH % 17.4 % (22.0-35.0); MEAN CELL VOLUME 87.5 fl (80.0-105.0); MEAN CORPUSCULAR HEMOGLOBIN 27.4 pg (25.0-35.0); MEAN CORPUSCULAR HGB CONC 31.3 g/dl (31.0-37.0); MEAN PLATELET VOLUME 9.8 fl (7.0-11.0); MONO # 1.1 (0.1-0.6); MONO % 9.7 % (1.0-6.0); RBC 3.03 10^6/uL (3.5-6.1); RED CELL DISTRIBUTION WIDTH 18.6 % (11.5-14.5)
[2017-09-13] MEDS: Insulin Reg-MEDIUM-Coverage SC SCH ×4 (07:30→22:31)
[2017-09-13 07:51] LABS: ALB/GLOB RATIO 1.1 (1.1-1.8); ALBUMIN 3.3 g/dL (3.0-4.8); BILIRUBIN,DIRECT 0.5 mg/dL (0.0-0.4); CALCIUM 7.7 mg/dL (8.4-10.5)
--- NOTE | 2017-09-13 07:52 | CP.PCM.PN ---
Objective - Vital Signs/Intake and Output Vital Signs (last 24 hours): Temp Pulse Resp BP Pulse Ox 97.4 F L 71 20 137/60 98 09/13/17 07:46 09/13/17 07:46 09/13/17 07:46 09/13/17 07:46 09/13/17 07:46 Intake and Output: 09/13/17 09/13/17 06:59 18:59 Intake Total 720 Balance 720 - Medications Medications: Current Medications Acetaminophen (Tylenol 325mg Tab) 325 mg PO Q4H PRN PRN Reason: Pain, Mild (1-3) Last Admin: 09/11/17 08:32 Dose: 325 mg Acetaminophen (Tylenol 325mg Tab) 650 mg PO Q4H PRN PRN Reason: Pain, moderate (4-7) Last Admin: 09/13/17 00:51 Dose: 650 mg Aspirin (Ecotrin) 81 mg PO DAILY [facility] Last Admin: 09/12/17 09:02 Dose: 81 mg Atorvastatin Calcium (Lipitor) 40 mg PO DIN [facility] Last Admin: 09/12/17 17:27 Dose: 40 mg Cinacalcet (Sensipar) 30 mg PO DAILY [facility] Last Admin: 09/12/17 09:02 Dose: 30 mg Diphenhydramine HCl (Benadryl) 25 mg PO HS PRN PRN Reason: Insomnia Last Admin: 09/12/17 21:21 Dose: 25 mg Docusate Sodium (Colace) 100 mg PO TID [facility] Last Admin: 09/12/17 17:26 Dose: 100 mg Duloxetine HCl (Cymbalta) 60 mg PO DAILY [facility] Last Admin: 09/12/17 09:02 Dose: 60 mg Ergocalciferol (Drisdol 50,000 Intl Units Cap) 1 cap PO Q7D [facility] Last Admin: 09/07/17 16:00 Dose: Not Given Folic Acid (Folic Acid) 5 mg PO DAILY [facility] Last Admin: 09/12/17 09:01 Dose: 5 mg Vancomycin HCl (Vancomycin 500mg In Ns) 500 mg in 100 mls @ 100 mls/hr IVPB MWF [facility] Last Admin: 09/10/17 10:15 Dose: 100 mls/hr Meropenem 500 mg/ Sodium (Chloride) 50 mls @ 100 mls/hr IVPB Q24H [facility] PRN Reason: Protocol Stop: 09/17/17 18:29 Last Admin: 09/12/17 17:27 Dose: 100 mls/hr Insulin Human Regular (Humulin R Med) 0 units SC ACHS [facility] PRN Reason: Protocol Last Admin: 09/12/17 22:00 Dose: Not Given Lactulose (Enulose) 20 gm PO BID [facility] Last Admin: 09/12/17 17:27 Dose: Not Given Losartan Potassium (Cozaar) 100 mg PO DAILY [facility] Last Admin: 09/12/17 09:02 Dose: 100 mg Oxycodone/Acetaminophen (Percocet 5/325 Mg Tab) 1 tab PO Q4H PRN PRN Reason: Pain, moderate (4-7) Stop: 09/14/17 14:33 Last Admin: 09/13/17 06:28 Dose: 1 tab Pantoprazole Sodium (Protonix Ec Tab) 20 mg PO 0600,1600 [facility] Last Admin: 09/13/17 06:24 Dose: 20 mg Polyethylene Glycol (Miralax) 17 gm PO TID [facility] Last Admin: 09/12/17 17:28 Dose: Not Given Warfarin Sodium (Coumadin) 2 mg PO 1800 [facility] PRN Reason: Protocol - Labs Labs: 09/13/17 06:40 09/13/17 06:40 PT 24.0 SECONDS (9.4-12.5) H 09/12/17 06:30 INR 2.06 (0.93-1.08) H 09/12/17 06:30 APTT 62.4 Seconds (25.1-36.5) H 09/12/17 06:30
[2017-09-13 07:55] LABS: INR 2.33 (0.93-1.08); PARTIAL THROMBOPLASTIN TIME 38.9 Seconds (25.1-36.5); PROTHROMBIN TIME 27.3 SECONDS (9.4-12.5)
--- NOTE | 2017-09-13 10:16 | CP.PCM.PN ---
Subjective - Date & Time of Evaluation Date of Evaluation: 09/13/17 Time of Evaluation: 06:55 - Subjective Subjective: Podiatry Progress Note- Dr. 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 Patient is seen resting comfortably in bed, in NAD, and AA0x3. Patient reports he is doing better today. Patient denies n/v/ sob/cp/chills or fever. Dressing to the right foot is clean, dry, and intact with no strikethrough. Objective - Vital Signs/Intake and Output Vital Signs (last 24 hours): Temp Pulse Resp BP Pulse Ox 98.1 F 62 18 124/56 L 98 09/13/17 10:01 09/13/17 10:01 09/13/17 10:01 09/13/17 10:01 09/13/17 09:22 Intake and Output: 09/13/17 09/13/17 06:59 18:59 Intake Total 720 325 Balance 720 325 - Medications Medications: Current Medications Acetaminophen (Tylenol 325mg Tab) 325 mg PO Q4H PRN PRN Reason: Pain, Mild (1-3) Last Admin: 09/11/17 08:32 Dose: 325 mg Acetaminophen (Tylenol 325mg Tab) 650 mg PO Q4H PRN PRN Reason: Pain, moderate (4-7) Last Admin: 09/13/17 00:51 Dose: 650 mg Aspirin (Ecotrin) 81 mg PO DAILY [facility] Last Admin: 09/12/17 09:02 Dose: 81 mg Atorvastatin Calcium (Lipitor) 40 mg PO DIN [facility] Last Admin: 09/12/17 17:27 Dose: 40 mg Cinacalcet (Sensipar) 30 mg PO DAILY [facility] Last Admin: 09/12/17 09:02 Dose: 30 mg Diphenhydramine HCl (Benadryl) 25 mg PO HS PRN PRN Reason: Insomnia Last Admin: 09/12/17 21:21 Dose: 25 mg Docusate Sodium (Colace) 100 mg PO TID [facility] Last Admin: 09/12/17 17:26 Dose: 100 mg Duloxetine HCl (Cymbalta) 60 mg PO DAILY [facility] Last Admin: 09/12/17 09:02 Dose: 60 mg Ergocalciferol (Drisdol 50,000 Intl Units Cap) 1 cap PO Q7D [facility] Last Admin: 09/07/17 16:00 Dose: Not Given Folic Acid (Folic Acid) 5 mg PO DAILY [facility] Last Admin: 09/12/17 09:01 Dose: 5 mg Vancomycin HCl (Vancomycin 500mg In Ns) 500 mg in 100 mls @ 100 mls/hr IVPB MWF [facility] Last Admin: 09/10/17 10:15 Dose: 100 mls/hr Meropenem 500 mg/ Sodium (Chloride) 50 mls @ 100 mls/hr IVPB Q24H [facility] PRN Reason: Protocol Stop: 09/17/17 18:29 Last Admin: 09/12/17 17:27 Dose: 100 mls/hr Insulin Human Regular (Humulin R Med) 0 units SC ACHS [facility] PRN Reason: Protocol Last Admin: 09/12/17 22:00 Dose: Not Given Lactulose (Enulose) 20 gm PO BID [facility] Last Admin: 09/12/17 17:27 Dose: Not Given Losartan Potassium (Cozaar) 100 mg PO DAILY [facility] Last Admin: 09/12/17 09:02 Dose: 100 mg Mupirocin (Bactroban Ointment) 1 gm NS DAILY [facility] Oxycodone/Acetaminophen (Percocet 5/325 Mg Tab) 1 tab PO Q4H PRN PRN Reason: Pain, moderate (4-7) Stop: 09/14/17 14:33 Last Admin: 09/13/17 06:28 Dose: 1 tab Pantoprazole Sodium (Protonix Ec Tab) 20 mg PO 0600,1600 [facility] Last Admin: 09/13/17 06:24 Dose: 20 mg Polyethylene Glycol (Miralax) 17 gm PO TID [facility] Last Admin: 09/12/17 17:28 Dose: Not Given Warfarin Sodium (Coumadin) 2 mg PO 1800 [facility] PRN Reason: Protocol - Labs Labs: 09/13/17 06:40 09/13/17 06:40 PT 27.3 SECONDS (9.4-12.5) H 09/13/17 06:40 INR 2.33 (0.93-1.08) H 09/13/17 06:40 APTT 38.9 Seconds (25.1-36.5) H 09/13/17 06:40 - Constitutional Appears: Well, Non-toxic, No Acute Distress - Extremities Exam Extremities Exam: absent: Calf Tenderness Additional comments: Right foot focused. Dressing c/d/i with no strikethrough to the dressing. No calf tenderness with palpation. DERM: Full thickness surgical wound noted to lateral aspect of foot measuring 6 cm x 3 cm with mixed wound bed (90% granular, 10% fibrotic). No drainage noted to the surgical site, wound base appears to be more dry. There is no mal-odor noted, no purulence. No erythema. Hallux distal tuft ischemic change noted, improved maceration to the hallux, 2nd and 3rd digit- appear to be dried. VASC: DP pulses palpable 2/4. PT pulses weakly palpable 1/4. CFT unable to assess digits 1-4. Temperature gradient warm to warm. Nonpitting edema noted to forefoot, +1 pitting edema noted to right leg. NEURO: Gross sensation diminished. ORTHO: 4th and 5th partial metatarsal amputation. Tenderness to palpation to entire right foot. No pain on palpation digits 1-3. - Neurological Exam Neurological Exam: Alert, Awake, Oriented x3 - Psychiatric Exam Psychiatric exam: Normal Affect, Normal Mood Assessment and Plan - Assessment and Plan (Free Text) Assessment: 66 y.o male seen s/p partial 4th and 5th metatarsals amputation Plan: Patient examined and evaluated with attending Dr Schneider Plan discussed with attending Dr. Schneider Labs, vitals, chart reviewed WBC=11.3 Surgical site appears to have no signs of acute infections Surgical site cleansed with betadine and saline solution, dressed with hydrogel , dsd, adpatic, ABD and kerlix No FELICIA Ordered mupricin, to be applied as need when amputation site is dry Patient to remain NWB. Limited to WBAT to heels only for transfers to bathroom or on chair/bed for now Wound culture 09/07/17 Enterococcus Faecalis c/w abx per ID X-ray shows s/p 4th and 5th partial metatarsal amputation Podiatry will continue to follow patient while in house
[2017-09-13] MEDS: POLYETHYLENE GLYCOL 3350 17 GM/Dose PACKET PO SCH ×3 (10:30→18:02)
[2017-09-13 10:38] LABS: WHITE BLOOD COUNT 11.3 10^3/ul (4.5-11.0)
--- NOTE | 2017-09-13 10:50 | PN ---
DATE: 09/10/2017 SUBJECTIVE: The patient is seen in the dialysis unit. He is awake. He is alert. He complains of constipation. He reports he got two enemas yesterday. PHYSICAL EXAMINATION GENERAL: Obese elderly male, lying in bed. VITAL SIGNS: Blood pressure 148/78, heart rate 50, respiratory rate 18, temperature 97.9. HEENT: Normocephalic, atraumatic. NECK: Supple, no JVD. LUNGS: Bilateral equal air entry, no rales. CARDIAC: S1 and S2, regular rate and rhythm, no murmur, no rub. ABDOMEN: Obese, distended, soft, nontender, bowel sounds present. EXTREMITIES: No lower extremity edema. INTAKE AND OUTPUT: Not charted. LABORATORY DATA: WBC 13.9, hemoglobin 9.4, hematocrit 29, platelets 260. Sodium 135, potassium 3.7, chloride 94, CO2 of 30, BUN 30, creatinine 7.1, glucose 170, calcium 8.8, phosphorus 3.2, magnesium 2.1. CURRENT MEDICATIONS: Colace, Coumadin, Cozaar, Cymbalta, Drisdol, Ecotrin, lactulose, folic acid, heparin, insulin, Lipitor, meropenem, MiraLax, Protonix, Sensipar, Tylenol, vancomycin 500 on dialysis. ASSESSMENT: 1. End-stage renal disease. 2. Peripheral arterial disease, status post amputation of fourth toe on the right foot. 3. Cerebrovascular accident. 4. Non-insulin dependant diabetes mellitus. 5. Hypertension. 6. Coronary artery disease. PLAN: 1. Continue antibiotics. 2. Continue anticoagulation. 3. Stable dialysis. 4. Wound care. 5. Monitor fingersticks and maintain euglycemia. Svetlana Hillman MD
[2017-09-13] MEDS: Vancomycin 500mg in NS 500 MG/100 ML BAG IVPB SCH (11:01)
--- NOTE | 2017-09-13 13:53 | CP.PCM.PN ---
Subjective - Date & Time of Evaluation Date of Evaluation: 09/13/17 Time of Evaluation: 12:55 - Subjective Subjective: Comfortable, less pain in the foot, no fevers, no diarrhea. Objective - Vital Signs/Intake and Output Vital Signs (last 24 hours): Temp Pulse Resp BP Pulse Ox 98.1 F 62 18 124/56 L 98 09/13/17 10:01 09/13/17 10:01 09/13/17 10:01 09/13/17 10:01 09/13/17 09:22 Intake and Output: 09/13/17 09/13/17 06:59 18:59 Intake Total 720 325 Balance 720 325 - Medications Medications: Current Medications Acetaminophen (Tylenol 325mg Tab) 325 mg PO Q4H PRN PRN Reason: Pain, Mild (1-3) Last Admin: 09/11/17 08:32 Dose: 325 mg Acetaminophen (Tylenol 325mg Tab) 650 mg PO Q4H PRN PRN Reason: Pain, moderate (4-7) Last Admin: 09/13/17 11:04 Dose: 650 mg Aspirin (Ecotrin) 81 mg PO DAILY [facility] Last Admin: 09/12/17 09:02 Dose: 81 mg Atorvastatin Calcium (Lipitor) 40 mg PO DIN [facility] Last Admin: 09/12/17 17:27 Dose: 40 mg Cinacalcet (Sensipar) 30 mg PO DAILY [facility] Last Admin: 09/12/17 09:02 Dose: 30 mg Diphenhydramine HCl (Benadryl) 25 mg PO HS PRN PRN Reason: Insomnia Last Admin: 09/12/17 21:21 Dose: 25 mg Docusate Sodium (Colace) 100 mg PO TID [facility] Last Admin: 09/13/17 10:28 Dose: Not Given Duloxetine HCl (Cymbalta) 60 mg PO DAILY [facility] Last Admin: 09/12/17 09:02 Dose: 60 mg Ergocalciferol (Drisdol 50,000 Intl Units Cap) 1 cap PO Q7D [facility] Last Admin: 09/07/17 16:00 Dose: Not Given Folic Acid (Folic Acid) 5 mg PO DAILY [facility] Last Admin: 09/12/17 09:01 Dose: 5 mg Vancomycin HCl (Vancomycin 500mg In Ns) 500 mg in 100 mls @ 100 mls/hr IVPB MWF [facility] Last Admin: 09/13/17 11:01 Dose: 100 mls/hr Meropenem 500 mg/ Sodium (Chloride) 50 mls @ 100 mls/hr IVPB Q24H [facility] PRN Reason: Protocol Stop: 09/17/17 18:29 Last Admin: 09/12/17 17:27 Dose: 100 mls/hr Insulin Human Regular (Humulin R Med) 0 units SC ACHS [facility] PRN Reason: Protocol Last Admin: 09/13/17 11:30 Dose: Not Given Lactulose (Enulose) 20 gm PO BID [facility] Last Admin: 09/13/17 10:29 Dose: Not Given Losartan Potassium (Cozaar) 100 mg PO DAILY [facility] Last Admin: 09/12/17 09:02 Dose: 100 mg Mupirocin (Bactroban Ointment) 1 gm NS DAILY [facility] Last Admin: 09/13/17 09:30 Dose: Not Given Oxycodone/Acetaminophen (Percocet 5/325 Mg Tab) 1 tab PO Q4H PRN PRN Reason: Pain, moderate (4-7) Stop: 09/14/17 14:33 Last Admin: 09/13/17 06:28 Dose: 1 tab Pantoprazole Sodium (Protonix Ec Tab) 20 mg PO 0600,1600 [facility] Last Admin: 09/13/17 06:24 Dose: 20 mg Polyethylene Glycol (Miralax) 17 gm PO TID [facility] Last Admin: 09/13/17 10:30 Dose: Not Given Warfarin Sodium (Coumadin) 2 mg PO 1800 [facility] PRN Reason: Protocol - Labs Labs: 09/13/17 06:40 09/13/17 06:40 PT 27.3 SECONDS (9.4-12.5) H 09/13/17 06:40 INR 2.33 (0.93-1.08) H 09/13/17 06:40 APTT 38.9 Seconds (25.1-36.5) H 09/13/17 06:40 - Constitutional Appears: Non-toxic, Chronically Ill - Head Exam Head Exam: NORMAL INSPECTION - ENT Exam ENT Exam: Mucous Membranes Moist - Neck Exam Neck Exam: absent: Meningismus - Respiratory Exam Respiratory Exam: Decreased Breath Sounds - Cardiovascular Exam Cardiovascular Exam: +S1, +S2 - GI/Abdominal Exam GI & Abdominal Exam: Soft. absent: Tenderness - Extremities Exam Additional comments: right foot with dressings in place Assessment and Plan - Assessment and Plan (Free Text) Plan: Assessment right foot skin and skin structure infection, severe, growing Stenotrophomonas, S/P right 5th toe amputation and 5th metatarsal partial amputation as well as partial 4th metatarsal amputation, growing Stenotrophomonas and E. faecalis POD #6 ESRD on HD history of CVA HTN cataracts DM Plan continue Merrem and intermittent Vanco IV; follow up OR cx and pathology will continue to monitor clinically
[2017-09-13] MEDS: Meropenem 500 MG in Sodium Chloride 0.9% 50 ML IVPB SCH (18:00)
--- NOTE | 2017-09-13 19:30 | PN ---
DATE: SUBJECTIVE: The patient has just returned from dialysis. It was uneventful. He tolerated dialysis well without any difficulties. The patient is concerned about the need for him to receive antibiotics on a regular basis for the next several weeks and how this is going to work in the outpatient setting. MEDICATIONS: Medication list reviewed. The patient is on Bactroban, Benadryl, Colace, Coumadin, Cozaar, Cymbalta, vitamin D, Ecotrin, lactulose, folic acid, insulin, Lipitor, meropenem, MiraLax, Percocet p.r.n., Protonix, Sensipar, Tylenol p.r.n., and IV vancomycin post dialysis. OBJECTIVE: INTAKE/OUTPUT: Intake is 720, output is not charted. VITAL SIGNS: Blood pressure 124/56, temperature 98.1, respiratory rate of 18 with a pulse of 62, pulse ox is 98%. HEENT: Normocephalic, atraumatic. Conjunctivae remain pale. Sclerae are nonicteric. NECK: Supple. No neck vein distention. CHEST: Clear to auscultation and percussion. No rales, rhonchi, or wheezing. CARDIOVASCULAR: Shows a regular rate and rhythm with aortic stenosis, aortic insufficiency, mitral regurgitation, aortic regurgitation. No S3, no S4, no rub. ABDOMEN: Soft. Obese. No significant distention. No rebound or guarding. No masses. EXTREMITIES: Dressing over his right foot. No cyanosis, clubbing, or edema. No drainage or bleeding through the dressing. LABORATORY DATA AND IMAGING: Pre-dialysis lab work with morning: CBC: White blood cell count improved at 11.3, hemoglobin slightly lower at 8.3 with a platelet count of 224,000. Coags: PT of 27.3 with an INR of 2.33. Chemistries: Sodium of 136, potassium is 3.1. BUN was 31 with a creatinine of 9.4. Glucose is 121. Calcium 7.7, corrects to normal for an albumin of 3.3, phosphorus 4, magnesium 2. Liver enzymes are normal. Microbiology: Wound cultures are positive for Enterococcus. ASSESSMENT: 1. End-stage renal disease. The patient will continue Wednesday, Wednesday, Wednesday dialysis. 2. History of ads-[id number] diabetes mellitus. The patient's glucose control is acceptable on sliding scale insulin. 3. History of hypertension. Blood pressure control is acceptable. The patient will continue present blood pressure medication. 4. 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 5. History of peripheral vascular disease status post amputations of his right fourth and fifth toe. Patient is receiving local wound care. Wound cultures were positive for Enterococcus and the patient will continue a prolonged course of IV antibiotic therapy to promote wound healing. 6. History of secondary hyperparathyroidism. Calcium and phosphorus are well controlled. He is on a renal diet. He will continue Sensipar and binders may be restarted once his phosphorus level rises. 7. History of anemia. The patient will continue Aranesp on dialysis as per protocol. His iron saturations were acceptable at 25%. His last dose of Aranesp was on 09/10. The patient received 100 mcg. Next dose will be on 09/17/2017. 8. Chronic anticoagulation. INR presently is 2.33 and heparin was discontinued. PLAN: 1. Continue local wound care. The patient has routine dressing changes done by Podiatry. 2. Continue medications for constipation. He appears to have success moving his bowels. 3. Continue a prolonged course of IV antibiotic therapy for Enterococcus growing from the wound. 4. Continue renal diet and all dietary restrictions. 5. Continue sliding scale insulin. 6. Continue Coumadin with monitoring of his PT/INR on a regular basis. IV heparin had been discontinued. Phillip Barth MD
--- NOTE | 2017-09-14 03:54 | PN ---
DATE: 09/13/2017 SUBJECTIVE: The patient is seen in hemodialysis. Patient is seen lying in the bed. Patient is complaining of right foot pain. Overnight nurse's notes were reviewed.. Patient is in the process of receiving PRBC on dialysis. Patient was seen by Dr. Schneider this morning. PHYSICAL EXAMINATION: VITAL SIGNS: In the last 24 hours, T-max is 97.4, 98.8 and 99; heart rate is 63, 62, 65, 71 and 76; blood pressure is 124/56, 131/54, 137/60, 121/51, 140/64. Respirations 20, O2 sat 95%. HEENT: Patient's head examination is normocephalic, atraumatic. HEENT examination shows pinkish pale conjunctivae. Anicteric sclerae. No oropharyngeal lesion. NECK: No neck rigidity. CHEST: Kyphosis. LUNGS: Shows no rales, crackles or wheezing except decreased breath sound at the bases, left more than the right. CARDIOVASCULAR: S1, S2, regular rhythm. Positive systolic murmur in left sternal border, right second intercostal space. ABDOMEN: Is protuberant, obese. Positive bowel sound. No hepatosplenomegaly noted. GENITALIA: Male. RECTAL: Deferred. EXTREMITIES: Show positive lymphedema of the right lower extremity. Positive right foot dressing. Positive lymphedema of the lower extremity, right more than the left. MUSCULOSKELETAL: Shows a body mass index of 43. NEUROLOGIC: Gait examination could not be tested. Patient is lying in the stretcher or recliner in the dialysis center although patient's neurological examinations without any gross deficits. DIAGNOSTICS: On 09/13/2017, WBC 11.3, hemoglobin and hematocrit 8.3 and 26.5 and platelet 224. Granulocytes 69. PT is 27.3, INR 2.33, PTT 39. Sodium 136, potassium 3.1, chloride 95, CO2 of 27, anion gap 17, BUN 31, creatinine 9.4, GFR is ; fingerstick blood sugar 139, 151 123, 121, 164, 150; calcium 7.7, phosphorus 4.0 and magnesium 2.0. Wound cultures are growing Enterococcus faecalis, which is sensitive to vancomycin and sensitive to Zyvox. Patient's pathology report from the last surgery of the fourth toe is still pending. IMPRESSION AND PLAN: 1. Enterococcus faecalis and Stenotrophomonas maltophilia right foot fourth and fifth toe, possible osteomyelitis, gangrene and diabetic foot ulceration. 2. Hypertension. 3. Constipation (resolved). 4. Leukocytosis with granulocytosis. 5. Normocytic anemia. 6. Hypokalemia and end-stage renal disease, dialysis patient. 7. Hyperglycemia. 8. Enterococcus faecalis and Stenotrophomonas maltophilia right foot fourth and fifth toe; diabetic ulceration, cellulitis and gangrene. 9. End-stage renal disease, hemodialysis dependent, three times a week via the left upper extremity arteriovenous fistula. 10. Gait dysfunction. 11. Bilateral lower extremity lymphedema. 12. Insulin-requiring diabetes mellitus. 13. History of [id number] aortic stenosis. 14. Severe peripheral vascular disease. 15. Morbid obesity. 16. Status post right foot fourth and fifth metatarsal amputation. 17. Gait dysfunction with right lower extremity nonweightbearing with weightbearing as tolerated to heels only for transfer to bathroom and chair and to bed. 18. Status post accidental PICC line dislodgement. 19. Peripheral vascular disease. 20. Insomnia. 21. Constipation. 22. Diabetic neuropathy. 23. Hypovitaminosis D. 24. Dyslipidemia. 25. Right foot pain syndrome. 26. Secondary hyperparathyroidism. 27. Right foot pain secondary to right foot fourth and fifth toe gangrene and amputation. 1. Constipation. 2. Right foot fourth and fifth toe amputation. 3. Right foot fourth and fifth toe gram-positive cocci, Enterococcus faecalis and Stenotrophomonas maltophilia, osteomyelitis and gangrene. 4. Right foot fifth toe gangrene with patchy ulceration with [id number] inflammation and extensive necrosis with distal metatarsal bone showing mild acute osteomyelitis with proximal resection margin negative for acute osteomyelitis. 5. Gait dysfunction. 6. Deconditioning. 7. Morbid obesity with elevated body mass index of 42.6. 8. End-stage renal disease, hemodialysis dependent via the left upper extremity arteriovenous fistula three times a week. 9. Status post right foot fourth and fifth toe metatarsal amputation. 10. Hypertension. 11. Leukocytosis with granulocytosis. 12. Normocytic anemia. 13. Anemia of chronic kidney disease. 14. History of acute cerebral infarct, Coumadin requiring. 15. Insomnia. 16. Diabetic neuropathy. 17. Hypovitaminosis D. 18. Hyperlipidemia. 19. Secondary hyperparathyroidism. 1. Right foot fifth and fourth toe gangrene and osteomyelitis. 2. Status post right foot fourth and fifth toe and metatarsal amputation. 3. Status post right foot ulcer debridement. 4. Severe peripheral vascular disease of the lower extremity. 5. Hypertension. 6. Bilateral lower extremity lymphedema, right more than the left. 7. Severe gait dysfunction and deconditioning. 8. Morbid obesity. 9. Leukocytosis with granulocytosis. 10 Normocytic anemia. 11. End-stage renal disease, hemodialysis dependent 3 times a week via the left upper extremity arteriovenous fistula. 12. Insulin-requiring diabetes mellitus. 13. Gait dysfunction. 14. Status post right fourth toe amputation and debridement of the right foot ulcer. 15. Enterococcus faecalis and Stenotrophomonas maltophilia, right foot fourth and fifth toe osteomyelitis and gangrene and diabetic foot ulcer. 16. Coronary artery disease. 17. History of acute cerebral infarct. 18. Insomnia. 19. Constipation. 20. Diabetic neuropathy. 21. Hypovitaminosis D. 22. Insulin-requiring diabetes mellitus. 23. Hyperlipidemia. 24. Secondary hyperparathyroidism. 1. Status post right foot fourth toe amputation and debridement of the right foot ulcer. 2. Right foot toe gangrene and diabetic ulceration. 3. Peripheral vascular disease. 4. Status post right foot fourth digit gangrene with diabetes mellitus and peripheral vascular disease. 5. Status post irrigation and debridement of the diabetic and gangrene ulcer of the right foot. 6. Partial right foot fourth metatarsal amputation. 7. Status post right upper extremity PICC line placement. 8. Status post amputation of the right foot distal fourth and fifth metatarsal. 9. Morbid obesity with elevated body mass index. 10. Cardiomegaly. 11. Enterococcus faecalis and Stenotrophomonas maltophilia right foot toes diabetic foot ulceration and gangrene. 12. Insomnia. 13. Constipation. 14. Hypertension. 15. Diabetic neuropathy. 16. Hypovitaminosis D. 17. Insulin-requiring diabetes mellitus. 19. Hyperlipidemia. 20. Secondary hyperparathyroidism. 1. Right foot fifth toe Enterococcus faecalis and Stenotrophomonas maltophilia diabetic foot ulceration and gangrene. 2. Hypertension. 3. Bilateral lower extremity lymphedema and venous stasis. 4. Leukocytosis with granulocytosis. 5. Normocytic anemia. 6. Secondary hyperparathyroidism with elevated parathyroid hormone level of 130. 7. Hypovitaminosis D. 8. End-stage renal disease, hemodialysis dependent via the left upper extremity fistula three times a week. 9. Hyponatremia. 10. Gait dysfunction. 11. Morbid obesity. 12. Deconditioning. 13. Status post right upper extremity PICC line placement. 14. Peripheral vascular disease. 15. Right foot fourth toe gangrene and severe peripheral vascular disease. 16. Right foot fifth and fourth toe skin and skin structure infection severe, secondary to Enterococcus faecalis and Stenotrophomonas maltophilia infection. 17. Insomnia. 18. Constipation. 19. Diabetic neuropathy. 20. Insulin-requiring diabetes mellitus. 21. Hypercholesteremia. 22. Hyperphosphatemia. 1. Deconditioning. 2. Gait dysfunction. 3. Right foot fifth toe and fifth digit amputation and partial metatarsal resection, postoperative day 3. 4. Right foot fourth digit ischemia versus gangrene. 5. Right foot fifth toe Enterococcus faecalis and Stenotrophomonas maltophilia diabetic foot ulceration and gangrene and questionable osteomyelitis. 6. Right foot fifth toe ulceration and acute and extensive necrosis and acute osteomyelitis with proximal resection margin negative for osteomyelitis. 7. Severe atherosclerotic disease of the lower extremity. 8. Right foot fifth toe extensive necrosis with acute and chronic inflammation and ulceration. 9. Hypertension. 10. Morbid obesity with elevated body mass index of 42. 11. Leukocytosis with granulocytosis. 12. Normocytic anemia. 13. Status post packed red blood cell transfusion. 14. Insulin-requiring diabetes mellitus. 15. Hypovitaminosis D. 16. History of hyperlipidemia. 17. Mild hypophosphatemia. 18. Bilateral lower extremity lymphedema, right more than the left. 19. Peripheral vascular disease. 20. End-stage renal disease, hemodialysis dependent, three times a week via the left upper extremity AV fistula. 21. Constipation. 22. Insomnia. 23. Diabetic neuropathy. 24. Hyperlipidemia. 25. Right foot pain syndrome. 1. Deconditioning. 2. Gait dysfunction. 3. Right foot fifth digit metatarsal amputation with antibiotic-eluting beads and amputation of the right foot fifth toe. 4. Hypertension. 5. Bilateral lower extremity venous stasis and lymphedema. 6. Leukocytosis with granulocytosis. 7. Normocytic anemia with decreasing hemoglobin/hematocrit. 8. Status post packed red blood cell transfusion x2. 9. Elevated erythrocyte sedimentation rate of greater than 114. 10. Coumadin requiring for acute cerebellar infarct. 11. Hypophosphatemia. 12. End-stage renal disease, hemodialysis dependent. 13. Insulin-requiring diabetes mellitus with hyperglycemia. 14. Decreased HDL of 28. 15. Right foot fourth digit ischemia. 16. Peripheral vascular disease. 17. Insomnia. 18. Constipation. 19. Diabetic neuropathy. 20. Hypovitaminosis D. 21. Dyslipidemia. 22. Right foot pain syndrome. 23. Secondary hyperparathyroidism. 1. Right foot fifth digit metatarsal amputation with antibiotic-eluting beads and amputation of the right fifth foot toe. 2. Right foot fifth digit gangrene with questionable osteomyelitis. 3. Questionable postop right foot fifth digit amputation with partial metatarsal resection bleeding. 4. Distal fifth metatarsal amputation. 5. Hypertension. 6. Leukocytosis with granulocytosis. 7. Elevated erythrocyte sedimentation rate of 114. 8. Normocytic anemia with granulocytosis. 9. History of multiple acute cerebral infarct, Coumadin-dependent requiring. 10. End-stage renal disease, hemodialysis dependent via the left upper extremity arteriovenous fistula 3 times a week. 11. Insulin-requiring diabetes mellitus. 12. Morbid obesity with elevated body mass index of 60. 13. Right foot fifth toe Stenotrophomonas maltophilia gangrene, diabetic foot ulceration and cellulitis. 14. Left ventricular ejection fraction of 60%. 15. Pulmonary arterial hypertension with right ventricular systolic pressure of 46 mmHg. 16. Concentric left ventricular hypertrophy. 17. Moderately dilated left atrium. 18. Calcified aortic valve with decreased opening and severe valvular aortic stenosis. 19. Calcified mitral valve with decreased opening and trace mitral regurgitation and moderate mitral stenosis. 20. Tricuspid regurgitation with pulmonary arterial hypertension with right ventricular systolic pressure of 46 mmHg. 21. Gait dysfunction. 22. Deconditioning. 1. Stenotrophomonas maltophilia right foot fifth toe cellulitis, diabetic ulceration, gangrene versus possible osteomyelitis. 2. Hypertension. 3. Insulin requiring diabetes mellitus with hyperglycemia. 4. Morbid obesity. 5. Normocytic anemia. 6. Elevated erythrocyte sedimentation rate of 114. 7. Coumadin requiring cerebral infarct. 8. End-stage renal disease, hemodialysis dependent. 9. Elevated C-reactive of greater 15. 10. . 11. Critical aortic stenosis. 12. Right lower extremity peripheral vascular disease. 13. Right foot neuropathic pain. 14. History of acute infarct of the right parietal lobe, right frontal lobe and left temporal lobe involving the cortex and subcortical white matter. 15. History of multiple old chronic lacunar infarct of the bilateral basal ganglia, right centrum semiovale and left neelima. 16. History of chronic microvascular ischemic disease of the brain. 17. History of questionable mastoiditis. 18. History of lymphedema of the bilateral lower extremities. 19. Diabetic neuropathy. 20. Constipation. 21. Hypervitaminosis D. 22. Hyperlipidemia. 23. Secondary hyperparathyroidism. 1. Abdominal aortogram and bilateral lower extremity runoff with right selective view. 2. Focal right popliteal artery [place] atherectomy with drug-eluting balloon angioplasty. 3. Right anterior tibial artery and right posterior tibial artery angioplasty. 4. Successful focal right popliteal artery atherectomy and drug-eluting balloon angioplasty. 5. Successful right anterior and posterior tibial artery angioplasty. 6. Atretic multiple renal artery. 7. Right popliteal artery critical focal stenosis above the knee. 8. Critical stenosis of the mid right anterior tibial artery and severe stenosis of the proximal right posterior tibial artery and mid right posterior tibial artery. 9. Moderate pedal occlusive disease. 10. End-stage renal disease, hemodialysis-dependent. 11. Hypertension. 12. Right foot fifth toe diabetic ulceration secondary to Stenotrophomonas maltophilia ulceration. 13. Post abdominal aortogram and bilateral lower extremity runoff with left groin bleeding. 14. Peripheral vascular disease. 15. Anemia. 16. Elevated erythrocyte sedimentation rate of 114. 17. Coumadin requiring multiple cerebral infarct. 18. Insulin-requiring diabetes mellitus. 19. Bilateral lower extremity lymphedema. 20. Hyperglycemia. 21. Left groin bleeding slow resolving. 22. Morbid obesity. 23. Gait dysfunction. 24. Right foot fifth toe diabetic ulceration and gangrene with neuropathic pain. 25. Diabetic neuropathy. 26. Hypovitaminosis D. 27. Dyslipidemia. 28. Secondary hyperparathyroidism. 1. Right foot fifth toe gram-negative lars diabetic foot ulcer, cellulitis, gangrene versus questionable osteomyelitis. 2. Right lower extremity peripheral vascular disease with popliteal artery stenosis and tibial artery stenosis. 3. Morbid obesity with elevated body mass index of 60. 4. Normocytic anemia. 5. Granulocytosis. 6. Elevated erythrocyte sedimentation rate of 114. 7. History of multiple acute cerebral infarct, Coumadin-dependent. 8. Insulin-requiring diabetes mellitus with hyperglycemia. 9. End-stage renal disease, hemodialysis dependent. 10. Elevated erythrocyte sedimentation rate of greater than 114. 11. Elevated C-reactive protein of greater than 15. 12. Hyperprocalcitoninemia. 13. Gram-negative lars right foot fifth toe questionable osteomyelitis, diabetic foot ulcer and cellulitis. 14. Status post right lower extremity angiogram and angioplasty. 15. Failure fat suppression of the right foot with edema of the plantar subcutaneous fat of the right foot. 16. Right foot questionable plantar fasciitis with borderline plantar fascia thickening. 17. Right foot cellulitis. 18. Calcified peripheral vascular disease of the lower extremity. 19. Left lower extremity noncompressible waveforms consistent with vascular calcification. 20. Moderately blunted right calf peripheral vascular resistant waveform consistent with right superficial femoral artery occlusive disease. 21. Severely blunted right ankle and metatarsal waveform. 1. Right foot right toe skin and skin structure soft tissue infection. 2. Questionable osteomyelitis of the right foot digits including the fifth digit with relative failure suppression of the fat and the fat suppressed of the digit. 3. Cellulitis of the right foot. 4. Bilateral lower extremity lymphedema. 5. Morbid obesity. 6. Insulin-requiring diabetes mellitus. 7. Right foot fifth digit and foot gangrene. 8. Hypertension. 9. Normocytic anemia. 10. Granulocytosis. 11. Elevated erythrocyte sedimentation rate of greater than 114. 12. History of multiple acute cerebrovascular infarct with Coumadin requiring. 13. End-stage renal disease, hemodialysis dependent. 14. Hyperprocalcitoninemia. 15. Elevated C-reactive protein of greater than 15. 16. Hyperglycemia. 17. Gram-negative lars, right foot fifth toe, questionable osteomyelitis, cellulitis and gangrene. 19. History of recent cerebrovascular accident. 20. Constipation. 21. Diabetic neuropathy. 22. Hypovitaminosis D. 23. Dyslipidemia. 24. Secondary hyperparathyroidism. 1. Acute right foot fifth toe gangrene versus possible osteomyelitis. 2. Right lower extremity peripheral vascular disease. 3. Possible right foot fifth toe diabetic foot ulcer versus cellulitis. 4. Hypertension. 5. End-stage renal disease, hemodialysis dependent three times a week via the left upper extremity fistula. 6. Normocytic anemia. 7. Elevated erythrocyte sedimentation rate of 114. 8. Coumadin-dependent cerebral infarct. 9. Insulin-requiring diabetes mellitus with hyperglycemia. 10. Elevated C-reactive protein of greater than 15. 11. Hyperprocalcitoninemia. 12. Hyperglycemia. 13. Right superficial femoral artery occlusive disease. 14. Severely blunted right distal blood vessel waveform. 15. Calcified peripheral vascular disease. 16. Right leg moderately blunted peripheral vascular resistance waveform consistent with right superficial femoral artery occlusive disease. 17. Severely blunted right ankle and metatarsal waveform. 18. Morbid obesity. 1. Right foot fifth toe gangrene versus diabetic foot ulceration versus questionable underlying osteomyelitis. 2. Right foot fifth toe pain secondary to above. 3. Questionable possible severe diabetic neuropathy. 4. Normocytic anemia. 5. Elevated erythrocyte sedimentation rate of 114. 6. Coumadin-requiring atrial fibrillation with severe aortic valvular stenosis and mitral stenosis. 7. End-stage renal disease, hemodialysis dependent via the left upper extremity arteriovenous fistula. 8. Severe bilateral lower extremity lymphedema. 9. Elevated C-reactive protein of greater than 15. 10. Insulin-requiring diabetes mellitus. 11. History of diabetes. 12. History of hypertension. 13. History of dyslipidemia. 14. History of hypovitaminosis D. 15. History of diabetic neuropathy. 16. History of hyperlipidemia. 17. History of gastroesophageal reflux. 18. History of right foot pain. 1. Multiple acute cerebral infarct, probably multiple acute embolic cerebral infarct. 2. Severe aortic stenosis. 3. Left upper extremity arteriovenous fistula bleeding. 4. Multiple acute embolic cerebral infarct symptomatic with symptoms of dizziness, gait dysfunction. 5. End-stage renal disease, hemodialysis dependent via the left upper extremity arteriovenous fistula three times a week. 6. Anemia. 7. Insulin-requiring diabetes mellitus. 8. History of coronary artery disease. 9. Gait dysfunction. 10. Morbid obesity. 11. Bilateral lower extremity lymphedema. 12. Hypertension. 13. Secondary hyperparathyroidism. 14. Dyslipidemia. 1. Left arteriovenous fistula site bleeding, probably secondary to heparin anticoagulation. 2. Multiple acute cerebral infarct. 3. Multiple acute embolic cerebral infarct with symptoms of dizziness, weakness and gait dysfunction. 4. End-stage renal disease, hemodialysis dependent. 5. Lymphedema of the lower extremity. 6. Normocytic anemia. 7. Insulin-requiring diabetes mellitus with hyperglycemia and hemoglobin A1c of 7.8. 8. Hyperphosphatemia. 9. Hypovitaminosis D. 10. Hypertriglyceridemia. 11. Hypercholesterolemia. 12. Elevated LDL. 13. Diffuse bilateral slowing with abnormal EEG consistent with bilateral cerebral dysfunction. 14. Gait dysfunction. 15. Left upper extremity arteriovenous fistula site bleeding secondary to heparin anticoagulation. 1. Status post right foot fifth toe/fifth digit amputation and metatarsal amputation with antibiotic-eluting beads. 2. Right foot fifth toe/digit gangrene versus questionable osteomyelitis. 3. Status post right foot fifth toe/fifth digit amputation, postoperative day 1. 4. Right fourth digit ischemia. 5. Peripheral vascular disease. 6. Right foot fifth toe Stenotrophomonas maltophilia and Gram-positive cocci, diabetic foot ulceration, and gangrene. 7. Hypertension. 8. Normocytic anemia with decreasing hemoglobin and hematocrit. 9. Leukocytosis with granulocytosis. 10. Elevated erythrocyte sedimentation rate of 114. 11. History of multiple acute cerebral infarct, Coumadin requiring. 12. Hyper-procalcitoninemia. 13. Status post 2 units of packed red blood cells transfusion. 14. Gait dysfunction. 15. Deconditioning. 16. Nonhealing diabetic foot ulceration. 17. End-stage renal disease, hemodialysis dependent. 18. Anemia of chronic kidney disease. 19. Status post right foot fifth digit/fifth toe amputation and partial metatarsal resection, postoperative day 1. 20. A positive blood type. 21. Constipation. 22. Diabetic neuropathy. 23. Hypovitaminosis D. 24. Insulin-requiring diabetes mellitus. 25. Dyslipidemia. 26. Right foot pain syndrome. 27. Secondary hyperparathyroidism with hyperphosphatemia. 1. Right foot fifth digit metatarsal amputation with antibiotic-eluting beads and amputation of the right fifth foot toe. 2. Right foot fifth digit gangrene with questionable osteomyelitis. 3. Questionable postop right foot fifth digit amputation with partial metatarsal resection bleeding. 4. Distal fifth metatarsal amputation. 5. Hypertension. 6. Leukocytosis with granulocytosis. 7. Elevated erythrocyte sedimentation rate of 114. 8. Normocytic anemia with granulocytosis. 9. History of multiple acute cerebral infarct, Coumadin-dependent requiring. 10. End-stage renal disease, hemodialysis dependent via the left upper extremity arteriovenous fistula 3 times a week. 11. Insulin-requiring diabetes mellitus. 12. Morbid obesity with elevated body mass index of 60. 13. Right foot fifth toe Stenotrophomonas maltophilia gangrene, diabetic foot ulceration and cellulitis. 14. Left ventricular ejection fraction of 60%. 15. Pulmonary arterial hypertension with right ventricular systolic pressure of 46 mmHg. 16. Concentric left ventricular hypertrophy. 17. Moderately dilated left atrium. 18. Calcified aortic valve with decreased opening and severe valvular aortic stenosis. 19. Calcified mitral valve with decreased opening and trace mitral regurgitation and moderate mitral stenosis. 20. Tricuspid regurgitation with pulmonary arterial hypertension with right ventricular systolic pressure of 46 mmHg. 21. Gait dysfunction. 22. Deconditioning. 1. Stenotrophomonas maltophilia right foot fifth toe cellulitis, diabetic ulceration, gangrene versus possible osteomyelitis. 2. Hypertension. 3. Insulin requiring diabetes mellitus with hyperglycemia. 4. Morbid obesity. 5. Normocytic anemia. 6. Elevated erythrocyte sedimentation rate of 114. 7. Coumadin requiring cerebral infarct. 8. End-stage renal disease, hemodialysis dependent. 9. Elevated C-reactive of greater 15. 10. . 11. Critical aortic stenosis. 12. Right lower extremity peripheral vascular disease. 13. Right foot neuropathic pain. 14. History of acute infarct of the right parietal lobe, right frontal lobe and left temporal lobe involving the cortex and subcortical white matter. 15. History of multiple old chronic lacunar infarct of the bilateral basal ganglia, right centrum semiovale and left neelima. 16. History of chronic microvascular ischemic disease of the brain. 17. History of questionable mastoiditis. 18. History of lymphedema of the bilateral lower extremities. 19. Diabetic neuropathy. 20. Constipation. 21. Hypervitaminosis D. 22. Hyperlipidemia. 23. Secondary hyperparathyroidism. 1. Abdominal aortogram and bilateral lower extremity runoff with right selective view. 2. Focal right popliteal artery [place] atherectomy with drug-eluting balloon angioplasty. 3. Right anterior tibial artery and right posterior tibial artery angioplasty. 4. Successful focal right popliteal artery atherectomy and drug-eluting balloon angioplasty. 5. Successful right anterior and posterior tibial artery angioplasty. 6. Atretic multiple renal artery. 7. Right popliteal artery critical focal stenosis above the knee. 8. Critical stenosis of the mid right anterior tibial artery and severe stenosis of the proximal right posterior tibial artery and mid right posterior tibial artery. 9. Moderate pedal occlusive disease. 10. End-stage renal disease, hemodialysis-dependent. 11. Hypertension. 12. Right foot fifth toe diabetic ulceration secondary to Stenotrophomonas maltophilia ulceration. 13. Post abdominal aortogram and bilateral lower extremity runoff with left groin bleeding. 14. Peripheral vascular disease. 15. Anemia. 16. Elevated erythrocyte sedimentation rate of 114. 17. Coumadin requiring multiple cerebral infarct. 18. Insulin-requiring diabetes mellitus. 19. Bilateral lower extremity lymphedema. 20. Hyperglycemia. 21. Left groin bleeding slow resolving. 22. Morbid obesity. 23. Gait dysfunction. 24. Right foot fifth toe diabetic ulceration and gangrene with neuropathic pain. 25. Diabetic neuropathy. 26. Hypovitaminosis D. 27. Dyslipidemia. 28. Secondary hyperparathyroidism. 1. Right foot fifth toe gram-negative lars diabetic foot ulcer, cellulitis, gangrene versus questionable osteomyelitis. 2. Right lower extremity peripheral vascular disease with popliteal artery stenosis and tibial artery stenosis. 3. Morbid obesity with elevated body mass index of 60. 4. Normocytic anemia. 5. Granulocytosis. 6. Elevated erythrocyte sedimentation rate of 114. 7. History of multiple acute cerebral infarct, Coumadin-dependent. 8. Insulin-requiring diabetes mellitus with hyperglycemia. 9. End-stage renal disease, hemodialysis dependent. 10. Elevated erythrocyte sedimentation rate of greater than 114. 11. Elevated C-reactive protein of greater than 15. 12. Hyperprocalcitoninemia. 13. Gram-negative lars right foot fifth toe questionable osteomyelitis, diabetic foot ulcer and cellulitis. 14. Status post right lower extremity angiogram and angioplasty. 15. Failure fat suppression of the right foot with edema of the plantar subcutaneous fat of the right foot. 16. Right foot questionable plantar fasciitis with borderline plantar fascia thickening. 17. Right foot cellulitis. 18. Calcified peripheral vascular disease of the lower extremity. 19. Left lower extremity noncompressible waveforms consistent with vascular calcification. 20. Moderately blunted right calf peripheral vascular resistant waveform consistent with right superficial femoral artery occlusive disease. 21. Severely blunted right ankle and metatarsal waveform. 1. Right foot right toe skin and skin structure soft tissue infection. 2. Questionable osteomyelitis of the right foot digits including the fifth digit with relative failure suppression of the fat and the fat suppressed of the digit. 3. Cellulitis of the right foot. 4. Bilateral lower extremity lymphedema. 5. Morbid obesity. 6. Insulin-requiring diabetes mellitus. 7. Right foot fifth digit and foot gangrene. 8. Hypertension. 9. Normocytic anemia. 10. Granulocytosis. 11. Elevated erythrocyte sedimentation rate of greater than 114. 12. History of multiple acute cerebrovascular infarct with Coumadin requiring. 13. End-stage renal disease, hemodialysis dependent. 14. Hyperprocalcitoninemia. 15. Elevated C-reactive protein of greater than 15. 16. Hyperglycemia. 17. Gram-negative lars, right foot fifth toe, questionable osteomyelitis, cellulitis and gangrene. 19. History of recent cerebrovascular accident. 20. Constipation. 21. Diabetic neuropathy. 22. Hypovitaminosis D. 23. Dyslipidemia. 24. Secondary hyperparathyroidism. 1. Acute right foot fifth toe gangrene versus possible osteomyelitis. 2. Right lower extremity peripheral vascular disease. 3. Possible right foot fifth toe diabetic foot ulcer versus cellulitis. 4. Hypertension. 5. End-stage renal disease, hemodialysis dependent three times a week via the left upper extremity fistula. 6. Normocytic anemia. 7. Elevated erythrocyte sedimentation rate of 114. 8. Coumadin-dependent cerebral infarct. 9. Insulin-requiring diabetes mellitus with hyperglycemia. 10. Elevated C-reactive protein of greater than 15. 11. Hyperprocalcitoninemia. 12. Hyperglycemia. 13. Right superficial femoral artery occlusive disease. 14. Severely blunted right distal blood vessel waveform. 15. Calcified peripheral vascular disease. 16. Right leg moderately blunted peripheral vascular resistance waveform consistent with right superficial femoral artery occlusive disease. 17. Severely blunted right ankle and metatarsal waveform. 18. Morbid obesity. 1. Right foot fifth toe gangrene versus diabetic foot ulceration versus questionable underlying osteomyelitis. 2. Right foot fifth toe pain secondary to above. 3. Questionable possible severe diabetic neuropathy. 4. Normocytic anemia. 5. Elevated erythrocyte sedimentation rate of 114. 6. Coumadin-requiring atrial fibrillation with severe aortic valvular stenosis and mitral stenosis. 7. End-stage renal disease, hemodialysis dependent via the left upper extremity arteriovenous fistula. 8. Severe bilateral lower extremity lymphedema. 9. Elevated C-reactive protein of greater than 15. 10. Insulin-requiring diabetes mellitus. 11. History of diabetes. 12. History of hypertension. 13. History of dyslipidemia. 14. History of hypovitaminosis D. 15. History of diabetic neuropathy. 16. History of hyperlipidemia. 17. History of gastroesophageal reflux. 18. History of right foot pain. 1. Multiple acute cerebral infarct, probably multiple acute embolic cerebral infarct. 2. Severe aortic stenosis. 3. Left upper extremity arteriovenous fistula bleeding. 4. Multiple acute embolic cerebral infarct symptomatic with symptoms of dizziness, gait dysfunction. 5. End-stage renal disease, hemodialysis dependent via the left upper extremity arteriovenous fistula three times a week. 6. Anemia. 7. Insulin-requiring diabetes mellitus. 8. History of coronary artery disease. 9. Gait dysfunction. 10. Morbid obesity. 11. Bilateral lower extremity lymphedema. 12. Hypertension. 13. Secondary hyperparathyroidism. 14. Dyslipidemia. 1. Left arteriovenous fistula site bleeding, probably secondary to heparin anticoagulation. 2. Multiple acute cerebral infarct. 3. Multiple acute embolic cerebral infarct with symptoms of dizziness, weakness and gait dysfunction. 4. End-stage renal disease, hemodialysis dependent. 5. Lymphedema of the lower extremity. 6. Normocytic anemia. 7. Insulin-requiring diabetes mellitus with hyperglycemia and hemoglobin A1c of 7.8. 8. Hyperphosphatemia. 9. Hypovitaminosis D. 10. Hypertriglyceridemia. 11. Hypercholesterolemia. 12. Elevated LDL. 13. Diffuse bilateral slowing with abnormal EEG consistent with bilateral cerebral dysfunction. 14. Gait dysfunction. 15. Left upper extremity arteriovenous fistula site bleeding secondary to heparin anticoagulation. 1. Acute cerebral infarct symptomatic with symptoms of dizziness and gait dysfunction. 2. Acute embolic multiple cerebral infarct. 3. End-stage renal disease, hemodialysis dependent three times a week via left upper extremity AV fistula. 4. Embolic acute cerebrovascular accident. 5. Severe to critical aortic stenosis. 6. Abnormal EEG with presence of diffuse slowing consistent with mild bilateral cerebral dysfunction. 7. Hypertension. 8. Transient hypoxemia. 9. Normocytic anemia. 10. Insulin-requiring diabetes mellitus, uncontrolled with hemoglobin A1c of 7.8. 11. Hypovitaminosis D. 12. Hypertriglyceridemia, hypercholesteremia with elevated LDL and decreased HDL. 13. Gait dysfunction. 14. Deconditioning. 15. Bilateral lower extremity lymphedema. 16. Dyslipidemia. 17. Secondary hyperparathyroidism. 1. Multiple acute infarcts, dominant 3-mm infarct in the right parietal lobe with multiple acute smaller infarcts in the right parietal, right frontal, and left temporal lobes. 2. Gait dysfunction. 3. Dizziness. 4. Right parietal lobe 3.5-cm acute infarct. 5. Multiple acute smaller infarcts involving the right parietal lobe, right frontal lobe, left temporal lobe with punctate appearance. 6. Bilateral basal ganglia right centrum semiovale and left pontine multiple old chronic lacunar infarcts. 7. Chronic small vessel ischemic disease of the brain. 8. Left mastoid air cell fluid, questionable mastoiditis. 9. Left ventricular ejection fraction of 60%. 10. Severe valvular aortic stenosis. 11. Pulmonary arterial hypertension with right ventricular systolic pressure of 46 mmHg. 12. Concentric left ventricular atrophy. 13. Moderately dilated left atrium. 14. Calcified aortic valve with decreased opening. 15. Mild aortic regurgitation. 16. Severe valvular aortic stenosis. 17. Trace mitral regurgitation. 18. Moderate mitral stenosis. 19. Deconditioning. 20. Gait dysfunction. 21. Lymphedema of the lower extremity. 22. End-stage renal disease, hemodialysis dependent three times a week via the left upper extremity arteriovenous fistula. 23. Diffuse slowing on the consistent with bilateral cerebral dysfunction. 24. Insulin-requiring diabetes mellitus with hyperglycemia and hemoglobin A1c of 7.8. 25. History of hypertension. 26. Normocytic anemia. 27. Secondary hyperparathyroidism. 28. Uncontrolled insulin-requiring diabetes mellitus with hemoglobin A1c of 7.8. 29. Hypercholesteremia, hypertriglyceridemia with elevated high density lipoprotein and decreased low density lipoprotein. 30. Hypovitaminosis D. 1. Multiple acute brain infarct, probably embolic with right parietal lobe 3-cm dominant infarct and multiple acute infarct in the right parietal, right frontal and left temporal lobes. 2. Left internal carotid artery cavernous and supraclinoid segment stenosis. 3. Renal osteodystrophy. 4. Bilateral cerebral dysfunction. 5. Headache, dizziness, weakness and possible gait dysfunction. 6. Morbid obesity with elevated body mass index of 60. 7. Bilateral lower extremity lymphedema. 8. Chronic venous stasis of the lower extremity. 9. Normocytic anemia. 10. Insulin-requiring diabetes mellitus with hyperglycemia and hemoglobin A1c of 7.8. 11. Hyperglycemia. 12. Hypovitaminosis D. 13. Hypertriglyceridemia, hypercholesteremia with decreased HDL. 14. History of poor compliance. 15. Left ventricular ejection fraction of 60%. 16. Pulmonary arterial hypertension with right ventricular systolic pressure of 46 mmHg 17. Moderate concentric left ventricular hypertrophy. 18. Moderately dilated left atrium. 19. Calcified aortic valve with decreased opening and mild aortic regurgitation. 20. Severe valvular aortic stenosis. 21. Trace mitral regurgitation. 22. Moderate mitral stenosis. 23. Tricuspid regurgitation with right ventricular systolic pressure of 46 mmHg and pulmonary arterial hypertension. 24. Left internal carotid artery narrowing and irregularities of the cavernous and supraclinoid segment compatible with stenosis. 25. Calcified plaque of the left internal carotid artery cavernous and supraclinoid segment. 26. Nonvisualized left anterior cerebral artery. 27. Left lower lobe lingular atelectasis and scarring. 28. Right lung noncalcified 3-mm pulmonary nodule. 29. Cardiomegaly. 30. Bilateral gynecomastia. 31. Left subclavian vein stenting. 32. Possible chronic occlusion of the right brachiocephalic vein. 33. Pulmonary hypertension. 34. Mediastinal lymphadenopathy. 35. Cholelithiasis. 36. Renal osteodystrophy with diffusely dense appearance of the bones and multiple vertebral endplate lucencies and degenerative Schmorl node. 37. Pulmonary nodule. 38. Bilateral 20% to 39% proximal internal carotid artery stenosis. 39. Multiple acute infarct involving the cortex and subcortical white matter and a dominant acute infarct in the right parietal lobe, 3.5 cm, with multiple smaller acute infarct of the right parietal lobe, right frontal lobe and left temporal lobe with punctate appearance. 40. Bilateral basal ganglia, multiple small old chronic lacunar infarct of the bilateral basal ganglia, right centrum semiovale and left neelima area. 41. Chronic microvascular ischemic disease of the brain throughout the brain white matter bilaterally. 42. Left mastoid air cell fluid. 43. Left lower lobe airspace disease, questionable atelectasis or pneumonia. 44. Chronic microangiopathic changes of the brain. 45. Unchanged mid occipital soft tissue swelling. 46. End-stage renal disease, hemodialysis dependent three times a week with left upper extremity arteriovenous fistula. Plan at this time, patient has been ordered serial labs, serial PT/PTT. CURRENT CONSULTATIONS: 1. Cardiology. 2. Infectious Disease. 3. Nephrology. 4. Podiatry. Patient has been requested to have a PICC line replacement for long-term IV antibiotic, which fell off over the weekend. Patient has been ordered re-consultation with Dr. Mayito Valdes for a placement of PICC line. At present, patient will be continued on intravenous antibiotics, meropenem and intermittent vancomycin, as per Infectious Disease, patient's microbiology cultures are growing Enterococcus faecalis, which is sensitive to ampicillin, sensitive to Zyvox, sensitive to penicillin, sensitive to Tygacil and sensitive to vancomycin. Patient has been ordered transfusion of PRBC one unit today over dialysis. Patient has been given Aranesp 100 mcg on 09/10/2017. Patient is on, 1. Bactroban cream to the affected area. 2. Benadryl 25 mg at bedtime p.r.n. 3. Colace 100 mg three times a day. 4. Coumadin adjusted to 2 mg daily. 5. Cozaar 100 mg daily. 6. Cymbalta 60 mg daily. 7. Drisdol 50,000 units weekly. 8. Aspirin 81 mg daily. 9. Lactulose 20 g twice a day. 10. Folic acid 5 mg daily. 11. Humulin R medium dose sliding scale coverage. 12. Lipitor 40 mg daily. 13. Meropenem 500 IV q. 24 to complete a total of 10 doses. 14. MiraLax 17 g three times a day. 15. Percocet 5/325 one tablet q.4 p.r.n. 16. Protonix 20 mg twice a day. 17. Sensipar 30 mg daily. 18. Tylenol 650 mg p.o. suppository q.4 p.r.n. Patient has been ordered, vancomycin 500 mg IV Wednesday, Wednesday and Wednesday. Patient has been ordered out of bed to recliner, occupational therapy, physical therapy with nonweightbearing to the right lower extremity. At present, patient will be continued on the above therapeutic intervention. Patient was seen by the Infectious Disease and their recommendations were noted. Patient's recommendation was noted. Infectious Disease recommend to continue IV meropenem, intermittent vancomycin. Follow up OR, cultures and pathology. Patient will be continued inpatient treatment with close followup by all the subspecialty involved in the care of the patient. Dictated and electronically signed, not read. Steve Rincon MD [facility]
[2017-09-14] MEDS: Pantoprazole 20 mg EC Tab PO SCH ×2 (06:24→17:47)
[2017-09-14 07:38] LABS: BASO # 0.03 K/mm3 (0.0-2.0); BASO % 0.3 % (0.0-3.0); EOS # 0.3 (0.0-0.7); EOS % 3.3 % (1.5-5.0); GRAN # 6.44 (1.4-6.5); GRAN % 69.6 % (50.0-68.0); HEMOGLOBIN 9.1 g/dL (14.0-18.0); LYMPH # 1.6 (1.2-3.4); LYMPH % 17.2 % (22.0-35.0); MEAN CELL VOLUME 88.1 fl (80.0-105.0); MEAN CORPUSCULAR HEMOGLOBIN 27.7 pg (25.0-35.0); MEAN CORPUSCULAR HGB CONC 31.5 g/dl (31.0-37.0); MEAN PLATELET VOLUME 9.6 fl (7.0-11.0); MONO # 0.9 (0.1-0.6); MONO % 9.6 % (1.0-6.0); RBC 3.28 10^6/uL (3.5-6.1)
[2017-09-14 07:52] LABS: INR 2.08 (0.93-1.08); PARTIAL THROMBOPLASTIN TIME 38.4 Seconds (25.1-36.5); PROTHROMBIN TIME 24.3 SECONDS (9.4-12.5)
[2017-09-14] MEDS: Insulin Reg-MEDIUM-Coverage SC SCH ×3 (07:53→16:36)
[2017-09-14 08:11] LABS: ALB/GLOB RATIO 1.1 (1.1-1.8); ALBUMIN 3.2 g/dL (3.0-4.8); BILIRUBIN,DIRECT 0.6 mg/dL (0.0-0.4); CALCIUM 7.8 mg/dL (8.4-10.5)
[2017-09-14 09:02] LABS: WHITE BLOOD COUNT 9.3 10^3/ul (4.5-11.0)
[2017-09-14] MEDS: POLYETHYLENE GLYCOL 3350 17 GM/Dose PACKET PO SCH ×3 (09:44→17:36)
--- NOTE | 2017-09-14 12:09 | CP.PCM.PN ---
Subjective - Date & Time of Evaluation Date of Evaluation: 09/14/17 Time of Evaluation: 11:59 - Subjective Subjective: Podiatry Progress Note- Dr. 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 Patient is seen resting comfortably in bed, in NAD, and AA0x3. Patient reports he is doing better today. Patient reports his bowel movements are more regulated. Patient denies n/v/sob/cp/chills or fever. Dressing to the right foot is clean, dry, and intact with no strikethrough. Objective - Vital Signs/Intake and Output Vital Signs (last 24 hours): Temp Pulse Resp BP Pulse Ox 97.4 F L 60 18 151/67 H 97 09/14/17 08:42 09/14/17 08:42 09/14/17 08:42 09/14/17 08:42 09/14/17 08:42 Intake and Output: 09/14/17 09/14/17 06:59 18:59 Intake Total 930 Balance 930 - Medications Medications: Current Medications Acetaminophen (Tylenol 325mg Tab) 325 mg PO Q4H PRN PRN Reason: Pain, Mild (1-3) Last Admin: 09/14/17 09:42 Dose: 325 mg Aspirin (Ecotrin) 81 mg PO DAILY [facility] Last Admin: 09/14/17 09:43 Dose: 81 mg Atorvastatin Calcium (Lipitor) 40 mg PO DIN [facility] Last Admin: 09/13/17 18:00 Dose: 40 mg Cinacalcet (Sensipar) 30 mg PO DAILY [facility] Last Admin: 09/14/17 09:43 Dose: 30 mg Diphenhydramine HCl (Benadryl) 25 mg PO HS PRN PRN Reason: Insomnia Last Admin: 09/12/17 21:21 Dose: 25 mg Docusate Sodium (Colace) 100 mg PO TID [facility] Last Admin: 09/14/17 09:42 Dose: 100 mg Duloxetine HCl (Cymbalta) 60 mg PO DAILY [facility] Last Admin: 09/14/17 09:42 Dose: 60 mg Ergocalciferol (Drisdol 50,000 Intl Units Cap) 1 cap PO Q7D [facility] Last Admin: 09/07/17 16:00 Dose: Not Given Folic Acid (Folic Acid) 5 mg PO DAILY [facility] Last Admin: 09/14/17 09:43 Dose: 5 mg Vancomycin HCl (Vancomycin 500mg In Ns) 500 mg in 100 mls @ 100 mls/hr IVPB MWF [facility] Last Admin: 09/13/17 11:01 Dose: 100 mls/hr Meropenem 500 mg/ Sodium (Chloride) 50 mls @ 100 mls/hr IVPB Q24H [facility] PRN Reason: Protocol Stop: 09/17/17 18:29 Last Admin: 09/13/17 18:00 Dose: 100 mls/hr Insulin Human Regular (Humulin R Med) 0 units SC ACHS [facility] PRN Reason: Protocol Last Admin: 09/14/17 11:36 Dose: Not Given Lactulose (Enulose) 20 gm PO BID [facility] Last Admin: 09/14/17 09:36 Dose: Not Given Losartan Potassium (Cozaar) 100 mg PO DAILY [facility] Last Admin: 09/14/17 09:43 Dose: 100 mg Mupirocin (Bactroban Ointment) 1 gm NS DAILY [facility] Last Admin: 09/13/17 09:30 Dose: Not Given Oxycodone/Acetaminophen (Percocet 5/325 Mg Tab) 1 tab PO Q4H PRN PRN Reason: Pain, moderate (4-7) Stop: 09/14/17 14:33 Last Admin: 09/13/17 21:03 Dose: 1 tab Pantoprazole Sodium (Protonix Ec Tab) 20 mg PO 0600,1600 [facility] Last Admin: 09/14/17 06:24 Dose: 20 mg Polyethylene Glycol (Miralax) 17 gm PO TID [facility] Last Admin: 09/14/17 09:44 Dose: 17 gm Warfarin Sodium (Coumadin) 2 mg PO 1800 [facility] PRN Reason: Protocol Last Admin: 09/13/17 18:01 Dose: 2 mg - Labs Labs: 09/14/17 07:00 09/14/17 07:00 PT 24.3 SECONDS (9.4-12.5) H 09/14/17 07:00 INR 2.08 (0.93-1.08) H 09/14/17 07:00 APTT 38.4 Seconds (25.1-36.5) H 09/14/17 07:00 - Constitutional Appears: Well, Non-toxic, No Acute Distress - Extremities Exam Extremities Exam: absent: Calf Tenderness Additional comments: Right foot focused. Dressing c/d/i with no strikethrough to the dressing. No calf tenderness with palpation. DERM: Full thickness surgical wound noted to lateral aspect of foot measuring 6 cm x 3 cm with mixed wound bed (80% granular, 20% fibrotic). No drainage noted to the surgical site, wound base appears to be more dry. There is no mal-odor noted, no purulence. No erythema. Hallux distal tuft ischemic change noted, maceration of hallux, 2nd and 3rd digit has resolved; dry digits 1-3 VASC: DP pulses palpable 2/4. PT pulses weakly palpable 1/4. CFT unable to assess digits 1-4. Temperature gradient warm to warm. Nonpitting edema noted to forefoot, +1 pitting edema noted to right leg. NEURO: Gross sensation diminished. ORTHO: 4th and 5th partial metatarsal amputation. Tenderness to palpation to entire right foot. No pain on palpation digits 1-3. - Psychiatric Exam Psychiatric exam: Normal Affect, Normal Mood Assessment and Plan - Assessment and Plan (Free Text) Assessment: 66 y.o male seen s/p partial 4th and 5th metatarsals amputation Plan: Patient examined and evaluated with attending Dr Schneider Plan discussed with attending Dr. Schneider Labs, vitals, chart reviewed WBC=9.3 Surgical site appears to have no signs of acute infections Surgical site cleansed with betadine and saline solution, dressed with mupricin , dsd, ABD and kerlix No FELICIA Patient to remain NWB. Limited to WBAT to heels only for transfers to bathroom or on chair/bed for now Wound culture 09/07/17 Enterococcus Faecalis c/w abx per ID X-ray shows s/p 4th and 5th partial metatarsal amputation Podiatry will continue to follow patient while in house
--- NOTE | 2017-09-14 13:06 | CP.PCM.PN ---
Subjective - Date & Time of Evaluation Date of Evaluation: 09/14/17 Time of Evaluation: 13:03 - Subjective Subjective: Medicine Progress Note for Dr. Rincon: Pt seen and examined at bedside. No acute overnight events. Pt offers no complaints at this time. Pt denies CP, SOB, n/v/d, abdominal pain, fever, chills , LIAO, or dizziness. Objective - Vital Signs/Intake and Output Vital Signs (last 24 hours): Temp Pulse Resp BP Pulse Ox 97.4 F L 60 18 151/67 H 97 09/14/17 08:42 09/14/17 08:42 09/14/17 08:42 09/14/17 08:42 09/14/17 08:42 Intake and Output: 09/14/17 09/14/17 06:59 18:59 Intake Total 930 Balance 930 - Medications Medications: Current Medications Acetaminophen (Tylenol 325mg Tab) 325 mg PO Q4H PRN PRN Reason: Pain, Mild (1-3) Last Admin: 09/14/17 09:42 Dose: 325 mg Aspirin (Ecotrin) 81 mg PO DAILY [facility] Last Admin: 09/14/17 09:43 Dose: 81 mg Atorvastatin Calcium (Lipitor) 40 mg PO DIN [facility] Last Admin: 09/13/17 18:00 Dose: 40 mg Cinacalcet (Sensipar) 30 mg PO DAILY [facility] Last Admin: 09/14/17 09:43 Dose: 30 mg Diphenhydramine HCl (Benadryl) 25 mg PO HS PRN PRN Reason: Insomnia Last Admin: 09/12/17 21:21 Dose: 25 mg Docusate Sodium (Colace) 100 mg PO TID [facility] Last Admin: 09/14/17 09:42 Dose: 100 mg Duloxetine HCl (Cymbalta) 60 mg PO DAILY [facility] Last Admin: 09/14/17 09:42 Dose: 60 mg Ergocalciferol (Drisdol 50,000 Intl Units Cap) 1 cap PO Q7D [facility] Last Admin: 09/07/17 16:00 Dose: Not Given Folic Acid (Folic Acid) 5 mg PO DAILY [facility] Last Admin: 09/14/17 09:43 Dose: 5 mg Vancomycin HCl (Vancomycin 500mg In Ns) 500 mg in 100 mls @ 100 mls/hr IVPB MWF [facility] Last Admin: 09/13/17 11:01 Dose: 100 mls/hr Meropenem 500 mg/ Sodium (Chloride) 50 mls @ 100 mls/hr IVPB Q24H [facility] PRN Reason: Protocol Stop: 09/17/17 18:29 Last Admin: 09/13/17 18:00 Dose: 100 mls/hr Insulin Human Regular (Humulin R Med) 0 units SC ACHS [facility] PRN Reason: Protocol Last Admin: 09/14/17 11:36 Dose: Not Given Lactulose (Enulose) 20 gm PO BID [facility] Last Admin: 09/14/17 09:36 Dose: Not Given Losartan Potassium (Cozaar) 100 mg PO DAILY [facility] Last Admin: 09/14/17 09:43 Dose: 100 mg Mupirocin (Bactroban Ointment) 1 gm NS DAILY [facility] Last Admin: 09/13/17 09:30 Dose: Not Given Oxycodone/Acetaminophen (Percocet 5/325 Mg Tab) 1 tab PO Q4H PRN PRN Reason: Pain, moderate (4-7) Stop: 09/14/17 14:33 Last Admin: 09/13/17 21:03 Dose: 1 tab Pantoprazole Sodium (Protonix Ec Tab) 20 mg PO 0600,1600 [facility] Last Admin: 09/14/17 06:24 Dose: 20 mg Polyethylene Glycol (Miralax) 17 gm PO TID [facility] Last Admin: 09/14/17 09:44 Dose: 17 gm Warfarin Sodium (Coumadin) 2 mg PO 1800 [facility] PRN Reason: Protocol Last Admin: 09/13/17 18:01 Dose: 2 mg - Labs Labs: 09/14/17 07:00 09/14/17 07:00 PT 24.3 SECONDS (9.4-12.5) H 09/14/17 07:00 INR 2.08 (0.93-1.08) H 09/14/17 07:00 APTT 38.4 Seconds (25.1-36.5) H 09/14/17 07:00 - Constitutional Appears: No Acute Distress - Head Exam Head Exam: NORMAL INSPECTION - Eye Exam Eye Exam: Normal appearance - ENT Exam ENT Exam: Mucous Membranes Moist - Neck Exam Neck Exam: Full ROM - Respiratory Exam Respiratory Exam: Clear to Ausculation Bilateral. absent: Rales, Rhonchi, Wheezes - Cardiovascular Exam Cardiovascular Exam: RRR, +S1, +S2. absent: Gallop, Rubs, Murmur - GI/Abdominal Exam GI & Abdominal Exam: Soft. absent: Distended, Guarding, Rigid, Tenderness, Rebound - Extremities Exam Extremities Exam: Normal Inspection - Back Exam Back Exam: NORMAL INSPECTION - Neurological Exam Neurological Exam: Alert, Awake, Oriented x3 - Psychiatric Exam Psychiatric exam: Normal Affect, Normal Mood - Skin Skin Exam: Dry, Intact, Normal Color, Warm Assessment and Plan - Assessment and Plan (Free Text) Assessment: 66 yo M who presented to ED with right foot abscess/gangrene is s/p partial 4th and 5th metatarsal amputation. Plan: 1. Gangrene and osteomyelitis of right 4th and 5th toe; Diabetic foot ulceration - ID consulted - Podiatry consulted - Wound culture positive for enterococcus faecalis and Stenotrophomonas maltophilia - Surgical pathology showed 4th toe/metatarsal gancrenous necrosis and patchy acute osteomyelitis - Per ID, superintendent container terminal IV abx will be required - PICC line ordered - Cont Merrem - Awaiting transfer to [facility] 2. Paroxysmal atrial fibrillation - Cont coumadin - INR 2.08 - Monitor INR, maintain between 2-3 3. Anemia likely 2/2 chronic disease - H/H stable - Iron panel WNL - Cont to monitor 4. ESRD on dialysis - Nephrology consulted - Dialysis TID via LE AV fistula 5. IDDM - ISS - Accuchecks ACHS 6. PVD - Cardiology consulted - ASA 7. HLD - Lipitor 8. HTN - Cozaar 9. Constipation - Colace - Miralax - Lactulose GI/DVT PPx - Protonix - Coumadin
[2017-09-14] MEDS ORDERED: Lidocaine 2% Inj (20ml) ONE (15:24)
[2017-09-14] MEDS ORDERED: HEPARIN SODIUM/NS 1,000 ML IV ONE (15:24)
--- NOTE | 2017-09-14 15:52 | PN ---
DATE: SUBJECTIVE: The patient is currently seen lying comfortable in a chair in his room. He states that he will likely need a prolonged course of antibiotic therapy. He is contemplating perhaps going to [facility] where he could receive both his dialysis and his daily antibiotics. He would like to return back to his outpatient center for dialysis as soon as possible. MEDICATIONS: List reviewed. The patient is currently on mupirocin, Benadryl, Colace, Coumadin, losartan, Cymbalta, vitamin D, Ecotrin, Enulose, folic acid, insulin, Lipitor, meropenem, MiraLax, Percocet p.r.n., Protonix, Sensipar, Tylenol p.r.n. and IV vancomycin post dialysis. OBJECTIVE: INTAKE/OUTPUT: Intake 1495, output hemodialysis. VITAL SIGNS: Blood pressure 151/67, temperature 97.4, respiratory rate 18 with a pulse of 60. HEENT: Shows him to be normocephalic, atraumatic. Conjunctivae are pale. Sclerae are nonicteric. NECK: Supple. No neck vein distention. CHEST: Clear to auscultation and percussion. No rales, rhonchi or wheezing. CARDIOVASCULAR: Shows a regular rate and rhythm with aortic stenosis, aortic insufficiency, mitral regurgitation, tricuspid regurgitation. No S3. No S1. No rub. ABDOMEN: Soft. Obese. No distention. No rebound, guarding or masses. EXTREMITIES: Show dressing over his right foot. No cyanosis, clubbing or pitting edema. No drainage or bleeding into the dressing. LABORATORY DATA AND IMAGING: CBC: White blood cell count today 9.3, hemoglobin 9.1 with a platelet count of 215,000. Coag show a PT of 24.3 with an INR of 2.08. PTT is 38.4. Chemistries show a sodium of 138, potassium was 3.3, BUN 21 with a creatinine of 6.1. Glucose 110 with a calcium of 7.8. Phosphorus is 2.9 with a magnesium of 2.0. Albumin remains low at 3.2. Microbiology: Right foot wound cultures were positive for Enterococcus faecalis. ASSESSMENT: 1. End-stage renal disease. The patient will continue Wednesday, Wednesday, Wednesday dialysis. 2. History of noninsulin-dependent diabetes mellitus. The patient's glucose control is acceptable on sliding scale insulin. 3. History of hypertension. Blood pressure control is acceptable. The patient will continue angiotensin receptor gabriel therapy, history of atherosclerotic heart disease with valvular heart disease, currently stable. 4. History of peripheral vascular disease status post amputations of his right fourth and fifth toe. The patient continues to receive local wound care in the hospital. He will likely require a prolonged course of IV antibiotic therapy for Enterococcus growing out of the wound. 5. History of secondary hyperparathyroidism. Calcium and phosphorus are controlled on a renal diet. The patient will continue Sensipar and binders maybe restarted on an as-needed basis with his phosphorus level rises. 6. History of anemia. The patient will continue Aranesp therapy on dialysis. His iron saturations were acceptable at 25%. Patient's next dose of Aranesp 100 mcg will be on 09/17/2017. 7. Chronic anticoagulation. INR presently is acceptable in the low 2 range. Heparin was discontinued. PLAN: 1. The patient will discuss with Infectious Disease, the duration of IV antibiotic therapy. He is concerned because he is receiving meropenem on a daily basis and this would likely require that he spend the next several weeks in a [facility] settings so that antibiotics can be given. He also needs dialysis, so he will likely go to [facility]. 2. History of constipation. This appears to improve. 3. Continue renal diet and p.r.n. start binders. 4. Continue to monitor Coumadin/PT/INR levels on a daily basis. 5. From my standpoint, labs can be done on dialysis days only. He does not require labs on non-dialysis days. Phillip Barth MD
[2017-09-14 16:17] VITALS: BP 139/54; PULSE 71; RESP 16; TEMP 98; O2SAT 100
[2017-09-14] MEDS ORDERED: Oxycodone/Acetaminophen 5/325 mg Tab PO PRN (16:27)
[2017-09-14] MEDS: Ergocalciferol 50,000 Intl Units Cap PO SCH (16:35)
--- NOTE | 2017-09-14 16:44 | VASCULAR ---
PROCEDURE: Ultrasound and fluoroscopically placed right upper extremity PICC line. HISTORY: PVD with right foot gangrene. Recent right 4th and 5th toe amputations. Long-term IV antibiotics. Needs PICC line PHYSICIAN(S): Mayito Valdes MD. TECHNIQUE: The relative risks and indications of the procedure were explained to the patient and consent obtained. The patient was placed supine on the arteriogram table and the right arm prepped and draped in the usual sterile fashion. A tourniquet was applied to the right axilla. 1% Xylocaine was used to anesthetize the skin and soft tissues at the puncture site above the elbow. The right brachial vein was punctured under direct ultrasound guidance with a micropuncture set. A 0.018 guidewire was advanced centrally and used to measure the length to the SVC/RA junction. A 5 [place] single-lumen PICC line 45 cm long was advanced to the SVC/RA junction. The catheter was flushed and secured. The patient tolerated the procedure well. IMPRESSION: 1. Ultrasound and fluoroscopically placed right upper extremity PICC line. A 5 [place] single-lumen PICC line 45 cm long was advanced to the SVC/RA junction.
--- NOTE | 2017-09-14 17:18 | CP.PCM.PN ---
Subjective - Date & Time of Evaluation Date of Evaluation: 09/14/17 Time of Evaluation: 12:35 - Subjective Subjective: No fevers, not in distress. Objective - Vital Signs/Intake and Output Vital Signs (last 24 hours): Temp Pulse Resp BP Pulse Ox 97.4 F L 60 18 151/67 H 97 09/14/17 08:42 09/14/17 08:42 09/14/17 08:42 09/14/17 08:42 09/14/17 08:42 Intake and Output: 09/14/17 09/14/17 06:59 18:59 Intake Total 930 Balance 930 - Medications Medications: Current Medications Acetaminophen (Tylenol 325mg Tab) 325 mg PO Q4H PRN PRN Reason: Pain, Mild (1-3) Last Admin: 09/14/17 09:42 Dose: 325 mg Aspirin (Ecotrin) 81 mg PO DAILY [facility] Last Admin: 09/14/17 09:43 Dose: 81 mg Atorvastatin Calcium (Lipitor) 40 mg PO DIN [facility] Last Admin: 09/13/17 18:00 Dose: 40 mg Cinacalcet (Sensipar) 30 mg PO DAILY [facility] Last Admin: 09/14/17 09:43 Dose: 30 mg Diphenhydramine HCl (Benadryl) 25 mg PO HS PRN PRN Reason: Insomnia Last Admin: 09/12/17 21:21 Dose: 25 mg Docusate Sodium (Colace) 100 mg PO TID [facility] Last Admin: 09/14/17 09:42 Dose: 100 mg Duloxetine HCl (Cymbalta) 60 mg PO DAILY [facility] Last Admin: 09/14/17 09:42 Dose: 60 mg Ergocalciferol (Drisdol 50,000 Intl Units Cap) 1 cap PO Q7D [facility] Last Admin: 09/07/17 16:00 Dose: Not Given Folic Acid (Folic Acid) 5 mg PO DAILY [facility] Last Admin: 09/14/17 09:43 Dose: 5 mg Vancomycin HCl (Vancomycin 500mg In Ns) 500 mg in 100 mls @ 100 mls/hr IVPB MWF [facility] Last Admin: 09/13/17 11:01 Dose: 100 mls/hr Meropenem 500 mg/ Sodium (Chloride) 50 mls @ 100 mls/hr IVPB Q24H [facility] PRN Reason: Protocol Stop: 09/17/17 18:29 Last Admin: 09/13/17 18:00 Dose: 100 mls/hr Insulin Human Regular (Humulin R Med) 0 units SC ACHS [facility] PRN Reason: Protocol Last Admin: 09/14/17 07:53 Dose: Not Given Lactulose (Enulose) 20 gm PO BID [facility] Last Admin: 09/14/17 09:36 Dose: Not Given Losartan Potassium (Cozaar) 100 mg PO DAILY [facility] Last Admin: 09/14/17 09:43 Dose: 100 mg Mupirocin (Bactroban Ointment) 1 gm NS DAILY [facility] Last Admin: 09/13/17 09:30 Dose: Not Given Oxycodone/Acetaminophen (Percocet 5/325 Mg Tab) 1 tab PO Q4H PRN PRN Reason: Pain, moderate (4-7) Stop: 09/14/17 14:33 Last Admin: 09/13/17 21:03 Dose: 1 tab Pantoprazole Sodium (Protonix Ec Tab) 20 mg PO 0600,1600 [facility] Last Admin: 09/14/17 06:24 Dose: 20 mg Polyethylene Glycol (Miralax) 17 gm PO TID [facility] Last Admin: 09/14/17 09:44 Dose: 17 gm Warfarin Sodium (Coumadin) 2 mg PO 1800 [facility] PRN Reason: Protocol Last Admin: 09/13/17 18:01 Dose: 2 mg - Labs Labs: 09/14/17 07:00 09/14/17 07:00 PT 24.3 SECONDS (9.4-12.5) H 09/14/17 07:00 INR 2.08 (0.93-1.08) H 09/14/17 07:00 APTT 38.4 Seconds (25.1-36.5) H 09/14/17 07:00 - Constitutional Appears: Chronically Ill - Head Exam Head Exam: NORMAL INSPECTION - ENT Exam ENT Exam: Mucous Membranes Moist - Neck Exam Neck Exam: absent: Meningismus - Respiratory Exam Respiratory Exam: Decreased Breath Sounds - Cardiovascular Exam Cardiovascular Exam: +S1, +S2 - GI/Abdominal Exam GI & Abdominal Exam: Soft. absent: Tenderness - Extremities Exam Additional comments: right foot with dressings in place Assessment and Plan - Assessment and Plan (Free Text) Plan: Assessment right foot skin and skin structure infection, severe, growing Stenotrophomonas, S/P right 5th toe amputation and 5th metatarsal partial amputation as well as partial 4th metatarsal amputation, growing Stenotrophomonas and E. faecalis POD #7 - with osteomyelitis ESRD on HD history of CVA HTN cataracts DM Plan continue Merrem and intermittent Vanco IV; OR pathology still showing osteomyelitis - will need 4-6 weeks of antibiotics will continue to monitor clinically
[2017-09-14] MEDS: Meropenem 500 MG in Sodium Chloride 0.9% 50 ML IVPB SCH (17:48)
--- NOTE | 2017-09-15 23:55 | DS ---
FINAL PROGRESS NOTE AND DISCHARGE SUMMARY The patient was finally accepted to [facility], which the patient and the family agreed to, for continuation of IV antibiotic and physical therapy. Patient was advised to complete a total of 6 weeks of IV antibiotics as per Infectious Disease. Patient was seen in room 576, bed 2. Patient's is at bedside. PHYSICAL EXAMINATION: GENERAL: Patient is sitting up in the recliner. T-max is 98; pulse 62, 70 and 74; blood pressure 139/54, 167/71, 126/50 124/56, 131/54. Respirations 18 to 20, and O2 sat 97% to 100%. HEENT: Head normocephalic and atraumatic. HEENT examination shows pinkish pale conjunctivae. Anicteric sclerae. No oropharyngeal lesion. NECK: No neck rigidity. CHEST: Kyphosis. LUNGS: Shows no rales, crackles or wheezing. CARDIOVASCULAR: Shows S1 and S2, regular rhythm. Positive systolic murmur at left sternal border, right second intercostal space, left second intercostal space. ABDOMEN: Protuberant, obese. Positive bowel sound. GENITALIA: Male. RECTAL: Deferred. EXTREMITIES: Show positive left upper extremity AV fistula, positive right upper extremity PICC line. Lower extremity shows lymphedema, right more than the left, with the right foot dressing and nonweightbearing of the right foot. MUSCULOSKELETAL: Shows a body mass index of 43. DIAGNOSTICS: On 09/14/2017, WBC 9.3, hemoglobin and hematocrit 9.1 and 29, platelet 215. Granulocytes, 70% segs. PT is 24.3, INR 2.08. Sodium 138, potassium 3.3, chloride 98, CO2 of 30, anion gap 14, BUN 21, creatinine 6.1, GFR 11; glucose 201, 150, 100; calcium 7.8, phosphorus 2.9, and magnesium 2.0. Wound cultures, Enterococcus faecalis. Patient received 1 unit of PRBC yesterday on hemodialysis. Patient underwent right upper extremity PICC line placement. IMPRESSION AND PLAN: 1. Enterococcus faecalis and Stenotrophomonas maltophilia, right foot fourth and fifth toe diabetic ulceration with acute osteomyelitis of the right foot fourth and fifth toe with gangrenous necrosis. 2. Status post right foot fifth and fourth toe amputation. 3. Hypertension. 4. Morbid obesity with elevated body mass index of 43. 5. Leukocytosis with granulocytosis. 6. Normocytic anemia. 7. Lymphopenia. 8. Monocytosis. 9. Status post packed red blood cell transfusion. 10. Coumadin-dependent cerebral infarct. 11. Severe aortic stenosis. 12. Bilateral lower extremity lymphedema. 13. Status post right upper extremity PICC line placement. 14. End-stage renal disease, hemodialysis dependent via the left upper extremity AV fistula. 15. Insulin-requiring diabetes mellitus. 16. Possibly metabolic syndrome with insulin resistance. 17. Insomnia. 18. Constipation. 19. Diabetic neuropathy. 20. Hypovitaminosis D. 21. Secondary hyperparathyroidism. The patient is accepted and will be discharged to [facility] after patient is agreeable to proceed with the discharge to [facility]. DISCHARGE MEDICATIONS: Patient is discharged on following medications: 1. Bactroban cream and ointment to the right foot area daily. 2. Benadryl 25 mg at bedtime p.r.n. 3. Colace 100 mg three times a day. 4. Coumadin 2 mg daily. 5. Cozaar 100 mg daily. 6. Cymbalta 60 mg daily. 7. Drisdol 50,000 units weekly. 8. Ecotrin 81 mg daily. 9. Lactulose 20 g twice a day. 10. Folic acid 5 mg daily. 11. Regular insulin sliding scale coverage before meals and at bedtime. 12. Lipitor 40 mg daily. 13. Meropenem 500 mg IV q. 24. 14. MiraLax 17 g three times a day. 15. Percocet 5/325 one tablet q. 4 p.r.n. 16. Protonix 40 mg daily. 17. Sensipar 30 mg daily. 18. Tylenol 650 mg q. 4 p.r.n. 19. Vancomycin 500 mg IV piggyback Wednesday, Wednesday, Wednesday on hemodialysis. The patient is to be discharged to subacute rehab. Patient's discharge medications are: 1. Tylenol 650 q. 6 p.r.n. 2. Ecotrin 81 daily. 3. Lipitor 40 or 80 mg daily. 4. PhosLo 1334 mg three times a day. 5. Sensipar 30 mg daily. 6. Benadryl 25 mg at bedtime. 7. Colace 100 mg three times a day. 8. Cymbalta 60 mg daily. 9. Drisdol 50,000 units weekly. 10. Folic acid 5 mg daily. 11. Humulin regular low sliding scale coverage. 12. Cozaar 100 mg daily. 13. Meropenem 500 mg IV q. hours daily. 14. Percocet 5/325 one tablet q. 4 p.r.n. 15. Protonix 40 mg daily. 16. MiraLax 17 g twice a day. 17. Vancomycin 500 mg IV piggyback Wednesday, Wednesday and Wednesday for 6 weeks. 18. Meropenem 500 mg IV q. 12 hours for 6 weeks. Time spent in the entire discharge process more than 45 minutes. Dictated and electronically signed, not read. Steve Rincon MD
== END 2017-09-14 22:08 | DRG 239 ==
LOC: SDS 07:09 → 5RSO 11:20
PROVIDERS: ADMIT Internal Medicine; ATTEND Internal Medicine
PROC: 5A1D70Z Performance of Urinary Filtration, Intermittent, Less than 6 Hours Per Day (ICD-10-PCS; 2017-09-07)
PROC: 0Y6M0ZD Detachment at Right Foot, Partial 4th Ray, Open Approach (ICD-10-PCS; principal; 2017-09-07 07:30)
PROC: 0JBQ0ZZ Excision of Right Foot Subcutaneous Tissue and Fascia, Open Approach (ICD-10-PCS; 2017-09-07 07:30)
PROC: 5A1D70Z Performance of Urinary Filtration, Intermittent, Less than 6 Hours Per Day (ICD-10-PCS; 2017-09-08)
PROC: 5A1D70Z Performance of Urinary Filtration, Intermittent, Less than 6 Hours Per Day (ICD-10-PCS; 2017-09-09)
PROC: 5A1D70Z Performance of Urinary Filtration, Intermittent, Less than 6 Hours Per Day (ICD-10-PCS; 2017-09-10)
PROC: 30233N1 Transfusion of Nonautologous Red Blood Cells into Peripheral Vein, Percutaneous Approach (ICD-10-PCS; 2017-09-13)
PROC: 5A1D70Z Performance of Urinary Filtration, Intermittent, Less than 6 Hours Per Day (ICD-10-PCS; 2017-09-13)
PROC: 02HV33Z Insertion of Infusion Device into Superior Vena Cava, Percutaneous Approach (ICD-10-PCS; 2017-09-14)
PROC: B518ZZA Fluoroscopy of Superior Vena Cava, Guidance (ICD-10-PCS; 2017-09-14)
DX: E11.52 Type 2 diabetes mellitus with diabetic peripheral angiopathy with gangrene (principal); N18.6 End stage renal disease; E11.22 Type 2 diabetes mellitus with diabetic chronic kidney disease; E11.40 Type 2 diabetes mellitus with diabetic neuropathy, unspecified; M86.171 Other acute osteomyelitis, right ankle and foot; E66.01 Morbid (severe) obesity due to excess calories; I08.3 Combined rheumatic disorders of mitral, aortic and tricuspid valves; L03.115 Cellulitis of right lower limb; N25.81 Secondary hyperparathyroidism of renal origin; I13.11 Hypertensive heart and chronic kidney disease without heart failure, with stage 5 chronic kidney disease, or end stage renal disease; L02.611 Cutaneous abscess of right foot; Z68.41 Body mass index [BMI] 40.0-44.9, adult; L97.519 Non-pressure chronic ulcer of other part of right foot with unspecified severity; E11.621 Type 2 diabetes mellitus with foot ulcer; I25.10 Atherosclerotic heart disease of native coronary artery without angina pectoris; I48.91 Unspecified atrial fibrillation; Z79.01 Long term (current) use of anticoagulants; E78.00 Pure hypercholesterolemia, unspecified; Z99.2 Dependence on renal dialysis; D63.1 Anemia in chronic kidney disease; K21.9 Gastro-esophageal reflux disease without esophagitis; E11.69 Type 2 diabetes mellitus with other specified complication; I87.2 Venous insufficiency (chronic) (peripheral); E11.36 Type 2 diabetes mellitus with diabetic cataract; I27.21 Secondary pulmonary arterial hypertension; K80.20 Calculus of gallbladder without cholecystitis without obstruction; E11.319 Type 2 diabetes mellitus with unspecified diabetic retinopathy without macular edema; E11.65 Type 2 diabetes mellitus with hyperglycemia; E55.9 Vitamin D deficiency, unspecified; K59.00 Constipation, unspecified; E78.1 Pure hyperglyceridemia; R26.9 Unspecified abnormalities of gait and mobility; Z79.4 Long term (current) use of insulin; G47.00 Insomnia, unspecified; Z86.73 Personal history of transient ischemic attack (TIA), and cerebral infarction without residual deficits; Z91.14 Patient's other noncompliance with medication regimen; Z91.11 Patient's noncompliance with dietary regimen

== ENCOUNTER 2017-10-07 06:03 | Day surgery (SDC) | payer MEDICARE ==
[2017-10-01 13:50] VITALS: BMI 42.4
[2017-10-07 06:53] LABS: INR 1.37 (0.93-1.08); PROTHROMBIN TIME 15.9 SECONDS (9.4-12.5)
[2017-10-07] MEDS ORDERED: Propofol 10 mg/ml Inj (20 ML) ONE (07:30)
[2017-10-07] MEDS ORDERED: Bupivacaine 0.5% Inj(30mL) ONE (07:35)
[2017-10-07] MEDS ORDERED: Lidocaine 1% Inj (20ml) ONE ×2 (07:35)
[2017-10-07] MEDS ORDERED: HYDROmorphone 0.5 mg/0.5 ml ISec IVP PRN ×2 (08:29→08:32)
--- NOTE | 2017-10-07 08:31 | PCM.SURG1 ---
Surgeon's Initial Post Op Note - Surgeon's Notes Surgeon: Dr. Schneider Bell Ringer: Colton Carrera PGY1 Type of Anesthesia: IV Sedation, Local (18cc 0.5% marcaine plain) Anesthesia Administered By: Dr. Yu Pre-Operative Diagnosis: 1) Right foot nonhealing wound. 2) Right great toe eschar Operative Findings: See operative report. Materials: [place] wound matrix Post-Operative Diagnosis: Same Operation Performed: 1) Debridement of full-thickness ulceration using Versajet , curette, scalpel, pick-ups, with applciation of [place] wound matrix. 2) Debridement of partial-thickness ulceration using Versajet, scalpel, and pick- ups, with application of [place] wound matrix Specimen/Specimens Removed: Right foot wound Estimated Blood Loss: EBL {In ML}: 1 Blood Products Given: N/A Drains Used: No Drains Post-Op Condition: Good Date of Surgery/Procedure: 10/07/17 Time of Surgery/Procedure: 08:31
[2017-10-07] MEDS ORDERED: Oxycodone/Acetaminophen 5/325 mg Tab PO PRN ×2 (08:32)
[2017-10-07 09:28] VITALS: BP 147/76; PULSE 69; RESP 20; TEMP 97.9; O2SAT 98
--- NOTE | 2017-10-07 21:17 | OP ---
PROCEDURE DATE: 10/07/2017 TIME OF SURGERY: 0730 hours. PREOPERATIVE DIAGNOSES: Chronic diabetic wound on the right foot and a wound on the right great toe. POSTOPERATIVE DIAGNOSES: Chronic diabetic wound on the right foot and a wound on the right great toe. PROCEDURE: A full-thickness debridement using scalpel, pickup, curette, and Versajet with application of Whitakers wound skin substitute matrix on the right foot and a partial-thickness debridement using scalpel, pickup, and Versajet with application of Whitakers wound skin substitute matrix on the right first toe. SURGEON: Mayito Schneider DPM. SEXUAL ASSAULT NURSE: Anmol Carrera DPM, PGY-2. TYPE OF ANESTHESIA: IV sedation in combination with 18 mL of 0.5% plain Marcaine administered in a Aguilar type block of the right forefoot. ANESTHESIOLOGIST: Dr. Yu. INDICATIONS: The patient had longstanding diabetes with advancing peripheral artery disease, had developed gangrenous toes on the fourth and fifth toes of the right foot over the last 2 months. After hospitalization, vascular evaluation, vascular intervention with angioplasty and stenting, the patient underwent first one and then the other amputation of the fifth toe and then amputation of the fourth toe with infiltration of soft tissue for a direct primary closure. The resulting wound had regular wound care performed postoperatively and in the weeks intervening that he has been in the senior care facility on IV antibiotic and dressing changes. Additionally, he had developed an eschar of the tuft of the right first toe over the last several weeks, which has not sloughed. Then the decision was made the last interval wound debridement, to bring the patient in for a staged procedure to debride the new eschar on the tuft of the right first toe and to debride full thickness the wound ulcer on the right foot and to apply a skin matrix substitute graft on the cleaned wounds and to utilize a Rheo delayed wound procedure at the same time, but this was unavailable to us for purposes of finance, the hospital felt that they would lose money in utilizing this product and it was unavailable to use at this time to try and save this wound. So, the debridement and skin matrix wound dressing were performed today, absent the Rheo plastic surgical wound modification debridement mentioned above. TECHNIQUE: The patient was brought by ambulance from the senior care facility to the [facility] and brought to the operating room, placed supine on the operating table, awake, alert, and oriented times 3 and vital signs were stable. After adequate IV sedation by Dr. Yu, the local anesthetic described above was administered to the right foot and then the right foot underwent a Betadine prep and paint and a sterile drape. No hemostasis was utilized at this time. Attention was directed to the right lateral forefoot where approximately a 4 x 3 x 2 cm deep wound was appreciated with marginal escharotic edges and a 75% fibrin coated deep tissue including the deep fascia and ligament layers of the adjacent third toe complex. No exposed bone was appreciated at this time. The wound was debrided in several steps utilizing a pickup and scalpel for the marginal eschars and the large areas of surface fibrin and slough and then tissue curettes and bone curettes were utilized to work the margins and surface of the entire wound followed by the [employer] wound debridement system that was utilized to work the entire surface of the wound and get the final areas of nonviable tissue of a moderately bleeding surface was appreciated. Estimated blood loss was approximately 5 to 10 mL from the wound. With the wound lavaged with sterile saline, no wound cultures were obtained, the specimen harvested was sent to pathology. The wound was dressed with appropriately applied Whitakers, 3 x 5 cm skin substitute wound matrix graft and held in place and fixated with Dermabond skin glue on all the margins. Additional Steri-Strips were utilized across the wound to maintain the graft, which was then covered with a single layer of Adaptic wound dressing and a single moist saline sponge, this was held on with a single layer of Bartolo, which was taped into position, not to be removed for 1 week. Just prior to the application of this wound dressing, attention was directed to the great toe of the right foot where a similar procedure as one described was performed except it was performed partial thickness in an area measuring approximately 2 cm in diameter and less than 0.5 cm deep. The subcutaneous tissues were just barely appreciated under the necrotic dermis and eschar. With that wound cleaned, it was dressed in a similar fashion with Whitakers wound matrix dressing and a skin glue fixation of the dressing followed by Adaptic and Steri-Strips followed by a moist gauze and a Bartolo wrap with the intimate bandages completed and the specimen sent to pathology, a top dressing was applied with ABD gauzes and 2 layers of 4-inch Kerlix wrap, applied snugly without any Blaze bandage or compressive layers. The patient was aroused from the sedation and transferred back on to the stretcher and to the PACU area alert and oriented times 3, vital signs stable, in no acute distress with dressings dry and intact. Orders were written for the patient to undergo daily dressing changes of the superficial dressing and reapplication of a dry dressing over the intimate dressings, which will not to be changed for 1 week, it will be changed by us in the office followup. FINAL DIAGNOSES: A full-thickness and a partial-thickness diabetic wound ulcer on the right foot and operation performed was a full-thickness debridement on the right foot and a partial-thickness debridement on the right first toe with application of an Whitakers wound matrix graft to both sites. The patient tolerated the surgery well and will be transferred the same day back to the senior care facility for continued IV antibiotic and daily wound dressing care and physical therapy and we will follow up with the patient in 1 week. Mayito Schneider DPM
== END 2017-10-07 11:08 ==
LOC: SDS 06:03
PROVIDERS: ATTEND Podiatrist
DX: E11.621 Type 2 diabetes mellitus with foot ulcer (principal); L97.519 Non-pressure chronic ulcer of other part of right foot with unspecified severity; E11.51 Type 2 diabetes mellitus with diabetic peripheral angiopathy without gangrene
CPT/HCPCS: 15004; 36415; 85610; 88304; C5275; J1170; J2405; J2704; J3010; Q4124

== ENCOUNTER 2017-10-25 19:48 | Inpatient (IN) | payer MEDICARE ==
[2017-10-25 19:49] VITALS: BMI 42.4
--- NOTE | 2017-10-25 20:16 | ED PDOC ---
Arrival/HPI - General Chief Complaint: Abnormal Labs Time Seen by Provider: 10/25/17 20:03 Historian: Patient - History of Present Illness Narrative History of Present Illness (Text): 10/25/17 20:12 Prasanth Gamboa is an 67 year old male, whose past medical history of anemia and on Dialysis (MWF), who presents to the emergency department sent from dialysis for low blood count. Patient notes to experience associated generalized weakness with exertion. Patient notes that he has had similar symptoms before. Patient denies any fever, chills, chest pain, nausea, vomiting, diarrhea, urinary symptoms, back pain, neck pain, or any other complaints. PMD: Dr. Rincon Time/Duration: 1 hour Symptom Onset: Gradual Symptom Course: Unchanged Context: Home Past Medical History - Provider Review Nursing Documentation Reviewed: Yes - Past History Past History: No Previous - Infectious Disease Hx of Infectious Diseases: None - Tetanus Immunization Tetanus Immunization: Unknown - Cardiac Hx Cardiac Disorders: Yes Hx Atrial Fibrillation: Yes - Pulmonary Hx Respiratory Disorders: Yes Hx Pneumonia: Yes - Neurological Hx Paralysis: No - HEENT Hx HEENT Disorder: Yes Hx Cataracts: Yes - Renal Hx Renal Disorder: Yes Date of Last Dialysis Treatment: 10/25/17 Hx Renal Failure: Yes (on HD (M/W/F)) - Endocrine/Metabolic Hx Endocrine Disorders: Yes Hx Diabetes Mellitus Type 2: Yes - Hematological/Oncological Hx Blood Disorders: Yes Hx Anemia: Yes Hx Blood Transfusions: Yes Hx Blood Transfusion Reaction: No - Integumentary Hx Dermatological Disorder: No - Musculoskeletal/Rheumatological Hx Musculoskeletal Disorders: Yes Hx Osteomyelitis: Yes Hx Unsteady Gait: Yes Other/Comment: PVD, - Gastrointestinal Hx Gastrointestinal Disorders: Yes Hx Gastroesophageal Reflux: Yes - Genitourinary/Gynecological Hx Genitourinary Disorders: Yes (ESRD ON HD) - Psychiatric Hx Emotional Abuse: No Hx Physical Abuse: No Hx Substance Use: No - Surgical History Hx Vascular Access Device: Yes - Anesthesia Hx Anesthesia Reactions: No Hx Malignant Hyperthermia: No - Suicidal Assessment Feels Threatened In Home Enviroment: No Family/Social History - Physician Review Nursing Documentation Reviewed: Yes Family/Social History: No Known Family HX Smoking Status: Never Smoked Hx Alcohol Use: Yes (BEER- STOPPED 3 YRS AGO) Hx Substance Use: No Hx Substance Use Treatment: No Allergies/Home Meds Allergies/Adverse Reactions: Allergies No Known Allergies Allergy (Verified 08/31/17 22:02) Home Medications: Home Meds Medication Instructions Recorded Confirmed Ergocalciferol [Drisdol 50,000 1 cap PO TUE 07/31/17 10/07/17 Intl Units Cap] Acetaminophen [Tylenol (Renal)] 325 mg PO Q4H PRN 09/07/17 10/07/17 Atorvastatin [Lipitor] 40 mg PO DIN 09/07/17 10/07/17 DiphenhydrAMINE [Benadryl] 25 mg PO HS PRN 09/07/17 10/07/17 Insulin Human Regular-MED [HumuLIN See Protocol SC ACHS 09/07/17 10/07/17 R MED] Meropenem [Merrem IV] 500 mg IVPB QPM 09/07/17 10/07/17 oxyCODONE/Acetaminophen [Percocet 1 tab PO Q4H PRN 09/07/17 10/07/17 5/325 mg Tab] Cinacalcet [Sensipar] 30 mg PO DAILY 10/01/17 10/07/17 Lactulose 30 ml PO BID 10/01/17 10/07/17 Pantoprazole [Protonix EC Tab] 20 mg PO DAILY 10/01/17 10/07/17 Vit B Cplx C No.13/Folic AC/D3 1 tab PO DAILY 10/01/17 10/07/17 [Nephrocaps Qt Tablet] Warfarin [Coumadin] 4 mg PO DAILY 10/01/17 10/07/17 Review of Systems - Physician Review All systems were reviewed & negative as marked: Yes - Review of Systems Constitutional: Other (Low blood count) Eyes: absent: Vision Changes ENT: absent: Hearing Changes Respiratory: absent: SOB, Cough Cardiovascular: absent: Chest Pain Gastrointestinal: absent: Abdominal Pain Genitourinary Male: absent: Dysuria, Frequency Musculoskeletal: absent: Arthralgias, Back Pain Skin: absent: Rash, Pruritis Neurological: absent: Headache, Dizziness Endocrine: absent: Diaphoresis Hemo/Lymphatic: absent: Adenopathy Psychiatric: absent: Anxiety, Depression Physical Exam Vital Signs Reviewed: Yes Vital Signs Temp Pulse Resp BP Pulse Ox 10/25/17 20:02 97.6 F 77 18 126/50 L 90 L Temperature: Afebrile Blood Pressure: Hypotensive Pulse: Regular Respiratory Rate: Normal Appearance: Positive for: Well-Appearing, Non-Toxic, Comfortable Pain Distress: None Mental Status: Positive for: Alert and Oriented X 3 - Systems Exam Head: Present: Atraumatic, Normocephalic Pupils: Present: PERRL Extroacular Muscles: Present: EOMI Conjunctiva: Present: Normal Mouth: Present: Moist Mucous Membranes Neck: Present: Normal Range of Motion Respiratory/Chest: Present: Clear to Auscultation, Good Air Exchange. No: Respiratory Distress, Accessory Muscle Use Cardiovascular: Present: Regular Rate and Rhythm, Normal S1, S2. No: Murmurs Abdomen: No: Tenderness, Distention, Peritoneal Signs Back: Present: Normal Inspection Upper Extremity: Present: Normal Inspection. No: Cyanosis, Edema Lower Extremity: Present: Normal Inspection. No: Edema Neurological: Present: GCS=15, CN II-XII Intact, Speech Normal Skin: Present: Warm, Dry, Normal Color. No: Rashes Psychiatric: Present: Alert, Oriented x 3, Normal Insight, Normal Concentration Medical Decision Making ED Course and Treatment: 10/25/17 20:16 Impression: 67 year old male presents to the emergency department sent from dialysis for low blood count. Plan: -- EKG -- Chest X-ray -- Type and Screen -- Labs -- Reassess and disposition Prior Visits: Notes and results from previous visits were reviewed. Patient was last seen in the emergency department on 08/24/17 for right 5th toe gangrene. Patient was admitted to hospitalist care for further evaluation. Progress Notes: 10/25/17 21:57 Case discussed with PMD, Dr. Rincon, who saw and evaluated patient in emergency department as well. As per PMD, patient has a history of guaiac pos stools. Patient with low hemoglobin, less than 7 requiring transfusion. Agrees for patient to be transferred two units [facility]. Dr. Rucker (GI) and Dr. Hillman (renal) on consult. residential pest control technician notified. 10/25/17 22:02 Chest X-ray- No acute process, as read by me. 10/25/17 22:37 EKG: Ordered, reviewed, and independently interpreted the EKG. Rate : 77 BPM Rhythm : NSR Interpretation : Nonspecific T wave changes - Lab Interpretations Lab Results: 10/25/17 20:38 Lab Results 10/25/17 20:38: Blood Type Pending, Antibody Screen Pending, Crossmatch See Detail, BBK History Checked Patient has bt 10/25/17 20:38: WBC 7.4 D, RBC 2.34 L, Hgb 6.4 L* D, Hct 20.4 L*, MCV 87.2, MCH 27.4, MCHC 31.4, RDW 21.9 H, Plt Count 265, MPV 10.1 I have reviewed the lab results: Yes - RAD Interpretation Radiology Orders: 10/25/17 20:13 CHEST PORTABLE [RAD] Stat - Medication Orders Current Medication Orders: Acetaminophen (Tylenol 325mg Tab) 325 mg PO Q4H PRN PRN Reason: Pain, Mild (1-3) Atorvastatin Calcium (Lipitor) 40 mg PO DIN CONOR Cinacalcet (Sensipar) 30 mg PO DAILY CONOR Diphenhydramine HCl (Benadryl) 25 mg PO HS PRN PRN Reason: Insomnia Ergocalciferol (Drisdol 50,000 Intl Units Cap) 1 cap PO TUE CONOR Meropenem 500 mg/ Sodium (Chloride) 50 mls @ 100 mls/hr IVPB Q12H CONOR Stop: 10/26/17 10:44 Insulin Human Regular (Humulin R Med) 0 units SC ACHS CONOR PRN Reason: Protocol Lactulose (Enulose) 20 gm PO BID CONOR Oxycodone/Acetaminophen (Percocet 5/325 Mg Tab) 1 tab PO Q4H PRN PRN Reason: Pain, severe (8-10) Stop: 10/28/17 22:06 Pantoprazole Sodium (Protonix Ec Tab) 20 mg PO DAILY CONOR Pantoprazole Sodium (Protonix Inj) 40 mg IVP Q12H [facility] Last Admin: 10/25/17 22:22 Dose: Vitamin B Complex/Vit C/Folic Acid (Nephro-Thomas) 1 tab PO DAILY CONOR Discontinued Medications Non-Formulary Medication (Meropenem [Merrem Iv]) 500 mg IVPB QPM CONOR Pantoprazole Sodium (Protonix Inj) 40 mg IVP ONCE STA Stop: 10/25/17 21:54 Last Admin: 10/25/17 22:22 Dose: 40 mg IVP Administration Document 10/25/17 22:22 SS (Rec: 10/25/17 22:22 [id number] Charges for Administration # of IVP Administrations 1 - Scribe Statement The provider has reviewed the documentation as recorded by the Catherineibe Angie Li Provider Scribe Attestation: All medical record entries made by the Scribe were at my direction and personally dictated by me. I have reviewed the chart and agree that the record accurately reflects my personal performance of the history, physical exam, medical decision making, and the department course for this patient. I have also personally directed, reviewed, and agree with the discharge instructions and disposition. Disposition/Present on Arrival - Present on Arrival Any Indicators Present on Arrival: No History of DVT/PE: Yes History of Uncontrolled Diabetes: Yes Urinary Catheter: No History of Decub. Ulcer: No History Surgical Site Infection Following: None - Disposition Have Diagnosis and Disposition been Completed?: Yes Diagnosis: Anemia, GI (gastrointestinal bleed) Disposition: HOSPITALIZED Disposition Time: 21:49 Patient Plan: Admission Patient Problems: Current Active Problems Problem Status Onset Anemia Acute GI (gastrointestinal bleed) Acute Condition: STABLE
[2017-10-25 20:57] LABS: MEAN CELL VOLUME 87.2 fl (80.0-105.0); MEAN CORPUSCULAR HEMOGLOBIN 27.4 pg (25.0-35.0); MEAN CORPUSCULAR HGB CONC 31.4 g/dl (31.0-37.0); MEAN PLATELET VOLUME 10.1 fl (7.0-11.0); RBC 2.34 10^6/uL (3.5-6.1); RED CELL DISTRIBUTION WIDTH 21.9 % (11.5-14.5); WHITE BLOOD COUNT 7.4 10^3/ul (4.5-11.0)
[2017-10-25 21:02] LABS: HEMOGLOBIN 6.4 g/dL (14.0-18.0)
[2017-10-25] MEDS ORDERED: Non Formulary Medication (Meropenem [Merrem Iv] 500 MG) IVPB SCH (22:15)
[2017-10-25 22:29] LABS: ALB/GLOB RATIO 1.3 (1.1-1.8); ALBUMIN 3.5 g/dL (3.0-4.8)
--- NOTE | 2017-10-25 22:42 | CP.PCM.HP ---
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 Patient was at [facility] for physical therapy post amputation of his right 4th and 5th digits. Patient states he did feel lightheaded while walking before dialysis. He also admits to melena and mild lethargy. He denies any SOB, Dizziness, Chest pain, palpitations, N/V/D, constipation, chronic NSAID use or generalized weakness. Patient admits to chronic orthopnea and dyspnea on exertion. He normally walks with a cane. 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 Lives in [place] with and son. Currently retired Hos: 6 weeks ago for gangrene toe requiring amputation Building Associate: Dr. Schneider PMD: Dr. Rincon Cardio: Dr. Rolle. Present on Admission - Present on Admission Any Indicators Present on Admission: No Review of Systems - Review of Systems Review of Systems: As per HPI Past Patient History - Infectious Disease Hx of Infectious Diseases: None - Tetanus Immunizations Tetanus Immunization: Unknown - Past Social History Smoking Status: Never Smoked - CARDIAC Hx Cardiac Disorders: Yes Hx Atrial Fibrillation: Yes - PULMONARY Hx Respiratory Disorders: Yes Hx Pneumonia: Yes - NEUROLOGICAL Hx Paralysis: No - HEENT Hx HEENT Problems: Yes Hx Cataracts: Yes - RENAL Hx Chronic Kidney Disease: Yes Date of Last Dialysis Treatment: 10/25/17 Hx Renal Failure: Yes (on HD (M/W/F)) - ENDOCRINE/METABOLIC Hx Endocrine Disorders: Yes Hx Diabetes Mellitus Type 2: Yes - HEMATOLOGICAL/ONCOLOGICAL Hx Blood Disorders: Yes Hx Anemia: Yes Hx Blood Transfusions: Yes Hx Blood Transfusion Reaction: No - INTEGUMENTARY Hx Dermatological Problems: No - MUSCULOSKELETAL/RHEUMATOLOGICAL Hx Musculoskeletal Disorders: Yes Hx Osteomyelitis: Yes Hx Unsteady Gait: Yes Other/Comment: PVD, - GASTROINTESTINAL Hx Gastrointestinal Disorders: Yes Hx Gastroesophageal Reflux: Yes - GENITOURINARY/GYNECOLOGICAL Hx Genitourinary Disorders: Yes (ESRD ON HD) - PSYCHIATRIC Hx Emotional Abuse: No Hx Physical Abuse: No Hx Substance Use: No - SURGICAL HISTORY Hx Vascular Access Device: Yes - ANESTHESIA Hx Anesthesia Reactions: No Hx Malignant Hyperthermia: No Meds Allergies/Adverse Reactions: Allergies Allergy/AdvReac Type Severity Reaction Status Date / Time No Known Allergies Allergy Verified 08/31/17 22:02 Physical Exam - Constitutional Appears: Well, Non-toxic, No Acute Distress Additional comments: Morbidly Obese - Head Exam Head Exam: ATRAUMATIC, NORMAL INSPECTION, NORMOCEPHALIC - ENT Exam ENT Exam: Mucous Membranes Moist - Neck Exam Neck exam: Negative for: Lymphadenopathy, Thyromegaly - Respiratory Exam Respiratory Exam: Clear to Auscultation Bilateral, NORMAL BREATHING PATTERN. absent: Rales, Rhonchi, Wheezes - Cardiovascular Exam Cardiovascular Exam: RRR, +S1, +S2, Systolic Murmur - GI/Abdominal Exam GI & Abdominal Exam: Normal Bowel Sounds, Soft. absent: Organomegaly, Tenderness - Extremities Exam Extremities exam: Positive for: normal capillary refill, pedal edema (+2). Negative for: tenderness - Neurological Exam Neurological exam: Alert, Oriented x3 - Psychiatric Exam Psychiatric exam: Normal Affect, Normal Mood - Skin Skin Exam: Dry, Intact, Normal Color, Warm Results - Vital Signs Recent Vital Signs: Last Vital Signs Temp 97.6 F 10/25/17 20:02 Pulse 77 10/25/17 20:02 Resp 18 10/25/17 20:02 BP 126/50 L 10/25/17 20:02 Pulse Ox 90 L 10/25/17 20:02 - Labs Result Diagrams: 10/25/17 20:38 10/25/17 22:00 Labs: Laboratory Results - last 24 hr 10/25/17 22:00 Sodium 143 Potassium 3.7 Chloride 98 Carbon Dioxide 34 H Anion Gap 15 BUN 36 H Creatinine 4.2 H Est GFR ( Amer) 17 Est GFR (Non-Af Amer) 14 Random Glucose 168 H Calcium 8.0 L Total Bilirubin 0.4 AST 33 ALT 22 Alkaline Phosphatase 113 Total Protein 6.2 Albumin 3.5 Globulin 2.7 Albumin/Globulin Ratio 1.3 Assessment & Plan - Assessment and Plan (Free Text) Assessment: 67 year old male with a PMHx of Anemia, ESRD on dialysis (M,W,F), 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 Admitted for Anemia. Plan: Normocytic Anemia Likely 2/2 to Upper GI Bleed HgB 6.4 on Admission Transfuse 2 Units of PRBC's. 40 IV Lasix to be given after 1st Unit of PRBC Clear Liquid Diet CT Abd/Pelvis. GI Consult Nephrology Consult Hx of CHF Cardiology Consult Hx of Osteomyelitis Merrem ID Consult Hx of ESRD on Dialysis Nephrology Consult Home Sensipar Hx of HTN Patient is normotensive. Hold Anti-Hypertensives Hx of DM ISS Hx of CAD lipitor 40 DIN Proph Hold AntiCoags due to possible GI Bleed Protonix Diet: Clear Liquid Diet Patient discussed with Dr. Sergey Dunne, PGY-1
[2017-10-25 23:03] LABS: INR 1.88 (0.93-1.08); PARTIAL THROMBOPLASTIN TIME 25.4 Seconds (25.1-36.5); PROTHROMBIN TIME 21.7 SECONDS (9.4-12.5)
[2017-10-25] MEDS: Meropenem 500 MG in NS 0.9% 50 ML IVPB SCH (23:09)
[2017-10-26] MEDS: Oxycodone/Acetaminophen 5/325 mg Tab PO PRN (01:12)
--- NOTE | 2017-10-26 01:36 | CT ---
EXAM: CT Abdomen and Pelvis Without Intravenous Contrast CLINICAL HISTORY: 67 years old, male; Pain; Abdominal pain; Additional info: R/O gi bleed TECHNIQUE: Axial computed tomography images of the abdomen and pelvis without intravenous contrast. All CT scans at this facility use one or more dose reduction techniques, viz.: automated exposure control; ma/kV adjustment per patient size (including targeted exams where dose is matched to indication; i.e. head); or iterative reconstruction technique. Coronal and sagittal reformatted images were created and reviewed. COMPARISON: CT - ABD PELVIS IV CONTRAST ONLY 2016-06-29 17:26 FINDINGS: Limitations: Lack of intravenous contrast. Lung bases: Minimal atelectasis/scarring. Heart: Mild cardiomegaly. Valvular calcifications. ABDOMEN: Liver: Unremarkable. Gallbladder and bile ducts: No calcified stones. No ductal dilation. Pancreas: Unremarkable. No ductal dilation. Spleen: 3.0 x 2.4 x 3.0 cm lesion, stable. Adrenals: No mass. Kidneys and ureters: Mild stranding about kidneys, nonspecific. Moderate atrophy of kidneys. Few small renal calculi. 1.4 x 1.1 x 1.4 cm lesion within RIGHT kidney, indeterminate by CT criteria but grossly stable. Few too small to characterize lesions within LEFT kidney. No hydronephrosis. Stomach and bowel: No definite mural thickening. No obstruction. PELVIS: Appendix: Normal caliber. No inflammation. Bladder: Apparent mild bladder wall thickening. Incomplete distention, limiting evaluation. No stones. Reproductive: Unremarkable as visualized. Subperitoneal space: Minimal stranding in presacral space, nonspecific but stable. ABDOMEN and PELVIS: Intraperitoneal space: No significant fluid collection. No free air. Bones/joints: Increased density of visualized bones. Degenerative changes of hips and spine. No acute fracture. Soft tissues: Mild left gynecomastia. Mild diffuse stranding within subcutaneous tissues. Small umbilical hernia containing fat. Vasculature: Moderate atherosclerotic disease. No aneurysm. Lymph nodes: No pathologically enlarged lymph nodes. Other findings: Few small lucent lesions within pelvis, stable. IMPRESSION: 1. Possible bladder wall thickening. Clinical correlation is needed. 2. Kidney lesion, indeterminate. Recommend nonemergent ultrasound or MRI. 3. Splenic lesion, stable. 4. 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 5. Incidental/non-acute findings are described above.
--- NOTE | 2017-10-26 07:35 | RAD ---
HISTORY: anemic COMPARISON: 09/11/2017 FINDINGS: LUNGS: No active pulmonary disease. PLEURA: No significant pleural effusion identified, no pneumothorax apparent. CARDIOVASCULAR: Moderate cardiomegaly OSSEOUS STRUCTURES: No significant abnormalities. VISUALIZED UPPER ABDOMEN: Normal. OTHER FINDINGS: There is a right-sided PICC line that terminates in the right atrium IMPRESSION: No active disease.
[2017-10-26] MEDS: Insulin Reg-MEDIUM-Coverage SC SCH ×4 (08:27→21:42)
[2017-10-26] MEDS: Multivitamin Vitamin B Complex (Nephro-Vite) Tab PO SCH (09:48)
[2017-10-26] MEDS ORDERED: Pantoprazole 20 mg EC Tab PO SCH (10:00)
[2017-10-26] MEDS ORDERED: Ergocalciferol 50,000 Intl Units Cap PO SCH (10:00)
--- NOTE | 2017-10-26 11:18 | CARD ---
APPROVED REPORT EKG Measurement Heart [id number] <Conclusion> Normal sinus rhythm Nonspecific T wave abnormality Prolonged QT Abnormal ECG
[2017-10-26] MEDS: Meropenem 500 MG in NS 0.9% 50 ML IVPB SCH (11:58)
--- NOTE | 2017-10-26 13:23 | HP ---
HISTORY OF PRESENT ILLNESS: The patient is a 67-year-old morbidly obese male who has been on [facility] for treatment of the osteomyelitis of foot and toe, was brought to the [facility] Emergency Room because the patient's CBC today shows a significant drop in the hemoglobin to 6.6. Patient also reports complaint of melena for almost a week, but patient did not report it to the nurses. In addition, patient is also complaining of weakness and fatigue and tiredness. Patient was examined in bed 9 in the emergency room. Patient's vital signs, diagnostic data, past medical history, medications and social history, all details reviewed from the previous hospitalization. IMPRESSION AND PLAN: 1. Severe symptomatic anemia with decreasing hemoglobin and hematocrit. 2. Coagulopathy with severely elevated PT/INR. 3. History of acute, subacute cerebral infarct. 4. Hypertension. 5. History of coronary artery disease. 6. Left ventricular ejection fraction of 60%. 7. Pulmonary arterial hypertension with right ventricular systolic pressure of 46 mmHg. 8. Severe valvular aortic stenosis. 9. Moderate mitral valve stenosis. 10. Mild tricuspid regurgitation. 11. Left ventricular concentric hypertrophy. 12. Bilateral lower extremity lymphedema and venous stasis. 13. Insulin-requiring diabetes mellitus. 14. Morbid obesity with a body mass index of 43. 15. Questionable gastrointestinal bleeding with melena. 16. Melena and possible gastrointestinal bleeding. 17. History of hypovitaminosis D. 18. History of constipation. 19. End-stage renal disease, hemodialysis dependent via the left upper extremity AV fistula. 20. Status post right upper extremity peripherally inserted central catheter line placement. 21. Right foot toes osteomyelitis. 22. Dyslipidemia. 23. History of pneumonia. 24. Right foot fourth and fifth toe osteomyelitis and gangrenous necrosis secondary to Enterococcus faecalis and Stenotrophomonas maltophilia. 25. Coumadin-dependent cerebral infarct. 26. Secondary hyperparathyroidism. 27. Peripheral vascular disease. 28. Deconditioning. Plan at this time, the patient is to be admitted to [facility]. Patient will be ordered transfusion of PRBC. Patient will be admitted to telemetry for severe symptomatic anemia. Patient will be ordered transfusion of 1 unit of PRBC. PT/PTT pending . Consults will be Gastroenterology, Cardiology and Nephrology. Patient has been started on, 1. Benadryl 25 mg p.o. at bedtime. 2. Drisdol 50,000 weekly. 3. Lactulose 20 g twice a day. 4. Insulin regular medium dose sliding scale coverage before meals and at bedtime. 5. Lipitor 40 mg daily. 6. Meropenem 500 mg IV every 12 hours. 7. Nephro-Thomas 1 tablet daily. 8. Percocet 5/325 one tablet every 4 hours p.r.n. 9. Protonix 40 mg IV every 12 hours. 10. Sensipar 30 mg daily. 11. Tylenol 650 mg every 4 hours p.r.n. In addition, patient will also be consulted with Infectious Disease for further management of the osteomyelitis of the right foot and toe regarding the duration of IV antibiotic, patient was seen in the emergency room, in bed 9. At present, patient was seen in the emergency room, in bed 9 with patient's present at the bedside. Patient and the patient's was explained about the details of his medical condition, need for further hospitalization, need for further diagnostic therapeutic intervention. Need for GI, Cardiology, Nephrology, Infectious Disease evaluation was discussed and explained to the patient at length and all questions concerned answered. Patient will be ordered repeat CBC, repeat labs for the morning. Patient's prognosis is guarded. Condition, critical. Dictated and electronically signed, not read. Steve Rincon MD
[2017-10-26 15:16] LABS: BASO # 0.01 K/mm3 (0.0-2.0); BASO % 0.1 % (0.0-3.0); EOS # 0.1 (0.0-0.7); EOS % 1.1 % (1.5-5.0); GRAN # 6.83 (1.4-6.5); GRAN % 74.6 % (50.0-68.0); HEMOGLOBIN 7.6 g/dL (14.0-18.0); LYMPH # 1.3 (1.2-3.4); MEAN CELL VOLUME 87.8 fl (80.0-105.0); MEAN CORPUSCULAR HEMOGLOBIN 28.1 pg (25.0-35.0); MEAN CORPUSCULAR HGB CONC 32.1 g/dl (31.0-37.0); MEAN PLATELET VOLUME 9.4 fl (7.0-11.0); MONO # 0.9 (0.1-0.6); MONO % 10.2 % (1.0-6.0); RBC 2.7 10^6/uL (3.5-6.1); RED CELL DISTRIBUTION WIDTH 20.6 % (11.5-14.5); WHITE BLOOD COUNT 9.2 10^3/ul (4.5-11.0)
[2017-10-26 15:31] LABS: INR 1.58 (0.93-1.08); PARTIAL THROMBOPLASTIN TIME 33.6 Seconds (25.1-36.5); PROTHROMBIN TIME 18.2 SECONDS (9.4-12.5)
[2017-10-26 15:42] LABS: ALB/GLOB RATIO 1.4 (1.1-1.8); ALBUMIN 3.9 g/dL (3.0-4.8); BILIRUBIN,DIRECT 0.6 mg/dL (0.0-0.4)
[2017-10-26] MEDS ORDERED: Non Formulary Medication (Meropenem [Merrem Iv] 500 MG) IVPB SCH (18:00)
--- NOTE | 2017-10-26 20:48 | PN ---
DATE: 10/26/2017 SUBJECTIVE: The patient is seen lying in the bed in room 268, bed 1 with the patient's family at bedside. The patient states that he is feeling significantly better since yesterday. The patient denies any melena today. The patient still awaiting for dialysis today. The patient is in the process of receiving second unit of PRBC at present. Overnight nurse's notes were reviewed. The patient tolerated the first and second unit transfusion at present. PHYSICAL EXAMINATION: VITAL SIGNS: T-max 97.8. Telemetry shows heart rate 69, 66, 72, 74. Blood pressure 143/55, 144/45, 144/52, /54, 138/52; respirations 20; O2 sat is 96%. Intake output is reviewed. HEAD: Normocephalic, atraumatic. EENT: Shows pale conjunctivae. Anicteric sclerae. No oropharyngeal lesion. NECK: Short and supple. CHEST: Kyphosis. LUNGS: Show decreased breath sounds at the bases, positive rhonchi upper lung laguerre anteriorly. CARDIOVASCULAR: S1 and S2, regular rhythm. Positive systolic murmur in right second intercostal space, left second intercostal space. ABDOMEN: Morbidly obese, protuberant, positive bowel sounds. GENITALIA: Male. EXTREMITIES: Show positive left upper extremity AV fistula, right upper extremity PICC line. MUSCULOSKELETAL: Shows a body mass index of 43.3. NEUROLOGIC: The patient is alert, awake, responsive. No gross deficits noted. Positive lymphedema of the lower extremity noted. Gait examination is not tested. Psychiatric examination is negative. DIAGNOSTIC DATA: On 10/26/2017, post-transfusion CBC: WBC 9.2, hemoglobin and hematocrit 7.6 and 23.7 from 6.4 and 20.4, platelet 245, granulocytes 75%, ESR 55. PT is down to 18.2, INR 1.5. Yesterday's PT was 21.7, INR 1.88. Sodium 141, potassium 4, chloride 96, CO2 of 30, anion gap 18, BUN 53, creatinine 5.4, GFR 13, glucose 164, calcium 8, phosphorus 2.9, magnesium 2. LFTs are normal. C-reactive protein is greater than 23, cholesterol 111, LDL 44, HDL 28, triglyceride 145. The patient was transfused 2 units of A+ blood type. CAT scan of the abdomen and pelvis done without contrast in the ER last night. Mild cardiomegaly, atelectasis. Results reviewed of the CAT scan. EKG shows sinus rhythm. IMPRESSION: 1. Severe symptomatic anemia with decreasing hemoglobin to 6.4. 2. Possible gastrointestinal bleeding with melena. 3. Coagulopathy. 4. Elevated erythrocyte sedimentation rate. 5. End-stage renal disease, hemodialysis dependent three times a week via the left upper extremity arteriovenous fistula. 6. Insulin-requiring diabetes mellitus with hyperglycemia. 7. Elevated C-reactive protein of greater than 23. 8. Bilateral lower extremity lymphedema. 9. Hypertension. 10. History of aortic stenosis. 11. History of cerebral infarct. 12. Status post 2 units packed red blood cell transfusion. 13. Chronic constipation. 14. Secondary hyperparathyroidism. 15. Hypovitaminosis D. 16. Dyslipidemia. 17. Right foot fourth and fifth toe osteomyelitis and diabetic ulceration and gangrene. 18. Morbid obesity. PLAN: At this time, the patient has been ordered serial labs. Consultation: Gastroenterology, Nephrology, Cardiology, and Infectious Disease. CURRENT MEDICATIONS: 1. Benadryl 25 at bedtime p.r.n. 2. Drisdol 50,000 weekly. 3. Lactulose 20 g twice a day. 4. Regular insulin sliding scale coverage before meals and at nighttime. 5. Lipitor 40 daily. 6. Multivitamin 1 tablet daily. 7. Percocet 5 per 325 one tablet every 4 hours p.r.n. 8. Protonix 40 IV every 12 hours. 9. Sensipar 30 mg daily. Liquid diet. The patient has been ordered n.p.o. past midnight by Dr. Rucker for possible endoscopy, transfusion of the second unit ordered. The patient has been ordered head of the bed at 30 degrees, out of bed, SCDs, and REI stockings ordered. Occupational therapy, physical therapy ordered. At present, the patient's further management will be dependent upon the patient's clinical condition, hemodynamic status, and as per the patient response to therapeutic intervention and as per recommendations by Gastroenterology, Nephrology, Cardiology, Infectious Disease. The patient's IV meropenem was restricted and it was discontinued by the pharmacy which will be reordered. The patient's IV antibiotic will be reordered until completion and approval by Infectious Disease. Dictated and electronically signed, not read. Steve MD [facility] # [id number]
--- NOTE | 2017-10-26 21:00 | CON ---
DATE: 10/26/2017 CARDIOLOGY CONSULTATION HISTORY OF PRESENT ILLNESS: The patient is a 67-year-old male who presents with dark stools as well as marked anemia after dialysis. PAST MEDICAL HISTORY: Notable for end-stage renal disease, diabetes mellitus, obesity, and hypercholesterolemia. Echocardiogram performed on his previous hospitalization revealed critical aortic stenosis. The patient has been undergoing multiple procedures for ulcers in his lower extremities due to severe peripheral vascular disease. This has now resolved. He denies shortness of breath, but his activity is minimal. REVIEW OF SYSTEMS: A 14-point review of systems is reviewed. Other than weakness, there are no other cardiac symptomatology noted. PHYSICAL EXAMINATION: VITAL SIGNS: Blood pressure is 143/55, heart rates in the 60s. NECK: Negative JVD. LUNGS: Without rales. HEART: Reveals S1, S2 with a 3/6 systolic ejection murmur. EXTREMITIES: Chronic edema noted. EKG shows normal sinus rhythm with mild IVCD and nonspecific ST-T changes. LABORATORY DATA: Hemoglobin on admission was 6.4. Hemoglobin after 2 units of transfusion is pending. BUN and creatinine are 36 and 4.2 with a glucose of 142. IMPRESSION: 1. Marked anemia. 2. Gastrointestinal bleed. 3. End-stage renal disease. 4. Diabetes mellitus. 5. Critical aortic stenosis. 6. Peripheral vascular disease. Given these findings, once we are confident that the patient's hemoglobin remains stable, we will consider cardiac catheterization to evaluate his aortic valve. We will schedule for next week as an outpatient. Mayito Rolle MD
--- NOTE | 2017-10-26 21:59 | CON ---
DATE: 10/26/[address] for Dr. Rincon. REFERRING MD: Steve Rincon MD REASON FOR CONSULTATION: To provide dialysis services for a patient admitted from [facility] with severe anemia and a likely GI bleed. HISTORY OF PRESENT ILLNESS: Patient is a 67-year-old black male with a history of end-stage renal disease on chronic maintenance hemodialysis at [facility] in [facility] on Wednesday, Wednesday, Wednesday. History of NIDDM, history of hypertension, history of CVA, history of ASHD, peripheral vascular disease, history of secondary hyperparathyroidism. During last admission, patient was admitted with gangrene of toes, right foot. He is status post amputation of the fourth and fifth toe. Patient grew out Enterococcus and required a prolonged course of meropenem antibiotic therapy. Hence, he was transferred to [facility] for several weeks of antibiotics. Patient states that he noticed dark stools over the last several days. Repeat hemoglobin was done, which showed a hemoglobin down to 6.4, his baseline is in the 9 to 10 range. Patient was transferred over to [facility] for evaluation of a possible GI bleed. GI evaluation is pending. Patient has received 2 units of packed red blood cells. Patient was complaining of some mild shortness of breath and fatigue from the progressive anemia. Patient's last dialysis treatment was yesterday. We are asked to evaluate the patient to provide dialysis services. PAST MEDICAL HISTORY: Significant for end-stage renal disease, NIDDM, hypertension, ASHD with valvular heart disease, aortic stenosis, aortic insufficiency, mitral regurgitation, tricuspid regurgitation, past history of a CVA, history of secondary hyperparathyroidism, history of anemia in part secondary to chronic kidney disease, status post amputations of his right fourth and right fifth toe for gangrene. Patient has a working AV fistula. MEDICATIONS: At the retirement included that of Percocet p.r.n., Coumadin, Nephrocaps, Protonix, meropenem, losartan, lactulose, insulin sliding scale, vitamin D, Benadryl, Sensipar, Lipitor, Ecotrin, and Tylenol p.r.n. ALLERGIES: PATIENT HAS NO ALLERGIES TO MEDICATIONS. CURRENT MEDICATIONS: In hospital included that of Benadryl, vitamin D, lactulose, insulin, IV Lasix x1 dose at the time of transfusion, Lipitor, Nephro-Thomas, Percocet, Protonix, Sensipar, and Tylenol. SOCIAL HISTORY: No history of cigarette smoking. Patient drank alcohol in the past, but no longer drinks alcohol. FAMILY HISTORY: As per old charts, noncontributory. REVIEW OF SYSTEMS: Ten plus systems reviewed with the patient. All negative except for what is noted above. PHYSICAL EXAMINATION: GENERAL: Patient states appetite and weight have been stable during his stay in [facility]. ENT: Denies any hearing or visual problems. PULMONARY: Positive mild shortness of breath, perhaps secondary to worsening anemia. No history of COPD. No history of bronchitis or emphysema. CARDIAC: History as noted above. Patient states that he is scheduled for a cardiac catheterization next week with Dr. Rolle. GASTROINTESTINAL: Positive mild constipation. Patient is on medications to improve this. No abdominal pain. No nausea or vomiting. No coughing. No vomiting up of blood. GENITOURINARY: No significant urine output. Chronic kidney disease, on dialysis. ENDOCRINE: Positive for diabetes. Positive for secondary hyperparathyroidism. MUSCULOSKELETAL: No complaints. NEUROLOGICAL: Past history of CVA with no significant residual deficits. HEMATOLOGY AND ONCOLOGY: History of anemia, as noted above. PSYCHIATRIC: History is negative. PHYSICAL EXAMINATION: GENERAL: Patient is currently seen on 2R. He appears to be in no acute distress. He has received 2 units of packed red blood cells. VITAL SIGNS: Blood pressure is 147/66, temperature is 97.5. Pulse is 69 with a respiratory rate of 20. HEENT: Exam shows him to be normocephalic, atraumatic. Conjunctivae are pale. Sclerae nonicteric. NECK: Supple. No neck vein distention. CHEST: Clear to auscultation and percussion. No rales, rhonchi, or wheezing. CARDIOVASCULAR: Shows a regular rate and rhythm. Positive aortic stenosis, aortic insufficiency, mitral stenosis, and tricuspid regurgitation. ABDOMEN: Soft. Obese. No distention. Bowel sounds are normal. No rebound, guarding, or masses. EXTREMITIES: Positive AV fistula. Positive thrill. Positive bruit. No lower extremity cyanosis, clubbing, or edema. Diminished lower extremity pulses bilaterally. He has a dressing over his right foot. NEUROLOGIC: Shows him to be alert, oriented x3 with no gross focal motor or sensory deficits noted. LABORATORY DATA AND IMAGING: Admitting chest x-ray showed no acute pulmonary disease. Admitting abdominal CT showed no acute changes. Labs: CBC, white blood cell count 7.4 with a hemoglobin of 6.4 on admission last night. Platelet count is 265,000. Coag showed a PT of 21.7 with a PTT of 25.4. Chemistry showed normal electrolytes. BUN 36 with creatinine of 4.2; that was post dialysis yesterday. Glucose 168. Calcium is 8 with an albumin level of 3.5. Liver enzymes are normal. Salicylates less than 1. Alcohol level was nondetectable. Patient is status post 2 units of packed red blood cells. ASSESSMENT: 1. Gastrointestinal bleed with dark-colored stools, likely melanotic. GI evaluation in progress. By patient's history, this apparently started over the weekend. His hemoglobin had likely dropped a total of about 3 units from his baseline. I agree with transfusions. Patient may receive a third unit of blood with dialysis tomorrow, pending his hemoglobin. 2. History of [id number] diabetes mellitus. Patient will continue sliding scale insulin. 3. History of end-stage renal disease. Patient is on a Wednesday, Wednesday, and Wednesday dialysis schedule. 4. History of arteriosclerotic heart disease with valvular heart disease, as noted above. Patient states that Dr. Rolle has scheduled him for a cardiac catheterization for next week. 5. Past history of cerebrovascular accident, stable. 6. History of peripheral vascular disease, stable. 7. Status post amputations of his right foot fourth and fifth toe secondary to gangrene with Enterococcus, requiring a prolonged course of antibiotic therapy. 8. History of secondary hyperparathyroidism. Patient will continue Sensipar. Presently, patient is off binder therapy. Check phosphorus level with dialysis tomorrow. 9. History of anemia in part secondary to chronic kidney disease, worsened by a likely gastrointestinal bleed. PLAN: 1. Hemodialysis tomorrow as per routine. No heparin. 2. Continue local wound care for the amputation sites. 3. Complete the full course of antibiotic therapy. Patient states he is likely finishing this week. 4. Continue proton pump inhibition therapy in light of his GI bleed. 5. Continue to monitor stools for clearing of the melena. 6. Continue renal diet. 7. Continue blood pressure and cardiac medications. 8. Continue statin therapy. 9. Continue lactulose for his constipation. Thank you for letting me partake and share in the care of our mutual patient. Phillip Barth MD
--- NOTE | 2017-10-26 22:31 | CON ---
DATE: 10/26/2017 GASTROENTEROLOGY CONSULTATION REQUESTING PHYSICIAN: Steve Rincon MD. REASON FOR CONSULT: I have been asked to see this 67-year-old male with multiple comorbidities including aortic stenosis, end-stage renal disease, diabetes mellitus, peripheral vascular disease, congestive heart failure, hypertension, who was found to be anemic during dialysis and advised admission to the hospital. Patient is currently on warfarin for history of paroxysmal atrial fibrillation with history of CVA. He states that for the last 5 days, he has been having dark melanotic stools. He currently denies any abdominal pain, chest pain, or shortness of breath. He does admit to some weakness and dyspnea on exertion. He denies again any chest pain or palpitations. Patient had a transmetatarsal amputation of his fourth right toe 6 weeks ago for gangrene. He has a long history of diabetic foot ulcers and peripheral vascular disease. Again, he currently denies any abdominal pain, nausea, vomiting. PAST MEDICAL HISTORY: As above. He has a history of critical aortic stenosis, end-stage renal disease on dialysis, paroxysmal atrial fibrillation with CVA without any residual motor weakness, anemia, hypertension, congestive heart failure, diabetes mellitus, peripheral vascular disease. PAST SURGICAL HISTORY: Notable for amputation of his right fourth and fifth toes, cataract surgery, skin graft. SOCIAL HISTORY Denies cigarette smoking or alcohol use. FAMILY HISTORY: Noncontributory. REVIEW OF SYSTEMS: Fourteen-point review of systems is positive for melena, generalized weakness, dyspnea on exertion. MEDICATIONS: At home include oxycodone 5/325, Coumadin 4 mg daily, vitamin B complex, Protonix 20 mg daily, meropenem 500 mg IV every 8 hours, losartan 100 mg daily, lactulose 30 mL p.o. b.i.d., Humulin insulin, Drisdol 50,000 International Units weekly, Benadryl 25 mg at bedtime, Sensipar 30 mg daily, atorvastatin 40 mg daily, Ecotrin 81 mg daily, acetaminophen 325 mg every 4 hours as needed for pain. PHYSICAL EXAMINATION: GENERAL: Well-developed male, sitting in chair in no acute distress. VITAL SIGNS: Reveal temperature of 97.5, blood pressure 147/66, heart rate of 69. HEENT: Reveal sclerae to be white. Conjunctivae pale. NECK: Supple. CHEST: Reveal distant breath sounds. HEART: Exam reveals regular rate and rhythm. He has a 3/6 systolic murmur. ABDOMEN: Obese, soft, nontender. EXTREMITIES: Show no edema. His right foot is in a surgical dressing. LABORATORY DATA: Reveal white blood cell count 7.4, hemoglobin of 6.4. On discharge from the hospital 6 weeks ago, his hemoglobin was 9.1, platelet count today is 265,000. Chemistries reveal BUN 36, creatinine 4.2, bicarb of 34, blood sugar 142. C-reactive protein is 23.7. IMPRESSION: A 67-year-old male with multiple comorbidities including diabetes mellitus, aortic stenosis, peripheral vascular disease, hypertension, congestive heart failure, end-stage renal disease with new onset anemia with a history of melena for the last 5 days. He is on Coumadin for atrial fibrillation. His PT/INR are 21.7 and 1.88. I suspect that the patient has an upper gastrointestinal bleed given the history of melena. RECOMMENDATIONS: 1. Continue IV pantoprazole 40 mg IV every 12 hours. 2. I will schedule the patient for an upper endoscopy for the morning. I have discussed this case with Dr. Barth who concurs. Miguel A Rucker MD
[2017-10-26] MEDS: Meropenem 500 MG in Sodium Chloride 0.9% 50 ML IVPB SCH (22:33)
--- NOTE | 2017-10-27 04:59 | CON ---
DATE: 10/26/2017 LOCATION: The patient seen earlier this morning in room 268, bed 1. CHIEF COMPLAINT: Weakness times several days' duration. HISTORY OF PRESENT ILLNESS: This is a 67-year-old male with chronic renal failure, on hemodialysis, anemia, who presented to the emergency room from the dialysis, low hemoglobin, as well as he was found to have dark stool. He denied any fevers. No chills. No chest pain. No abdominal pain, diarrhea, or constipation. No bright red blood per rectum. REVIEW OF SYSTEMS: A 12-point review of systems performed. PAST MEDICAL HISTORY: Significant for chronic renal failure, on hemodialysis; cerebrovascular accident; hypertension; cataract; diabetes mellitus; history of right foot infection. PAST SURGICAL HISTORY: Significant for cataract surgery and left upper arm fistula. ALLERGIES: THE PATIENT HAS NO KNOWN ALLERGIES. MEDICATIONS AT HOME: Reviewed, include oxycodone and Coumadin. Emergency room chart is also reviewed. Dr. Rincon's history and physical examination is appreciated. PHYSICAL EXAMINATION: GENERAL: The patient is in bed, no acute distress. VITAL SIGNS: Temperature of 97, heart rate of 77, respiratory rate of 20, and blood pressure is 140/40. HEENT: Examination of HEENT is unremarkable. LUNGS: Have decreased breath sounds. HEART: Normal S1, S2. ABDOMEN: Soft and nontender. No organomegaly. No rebound. LABORATORY DATA: Reveals the patient's white count is 9.2, hemoglobin of 7, and platelets of 245. Coagulation is noted. Chemistries reveal a BUN of 63 and creatinine of 5.4. C-reactive protein is 23. Microbiology is noted. CAT scan of the abdomen and pelvis was reviewed. ASSESSMENT AND PLAN: This is a 67-year-old male with past medical history significant for chronic renal failure, on hemodialysis; anemia; cerebrovascular accident; hypertension; cataract; diabetes mellitus; right foot infection. The patient had prolonged Stenotrophomonas, had a fifth toe amputation, fifth metatarsal partial amputation as well as fourth metatarsal amputation growing Stenotrophomonas with osteomyelitis. Right foot osteomyelitis with of gastrointestinal bleed, was treated with meropenem, on treatment with meropenem for 4 to 6 weeks. We will repeat laboratories. The patient also has been receiving intermittent vancomycin. Review of the microbiology reveals the Stenotrophomonas was from 08/24. The patient apparently has had adequate therapy. Foot examination is unremarkable. Dr. Mayito Schneider's operative note from 10/07/2017 is reviewed. We will discuss with Dr. Rincon. The patient has had almost over 6 weeks of therapy. We will follow closely with you. We will hold off on any antibiotics at this time, pending discussion with Podiatry and Dr. Rincon. Cornell Pelaez MD
[2017-10-27] MEDS: Oxycodone/Acetaminophen 5/325 mg Tab PO PRN ×2 (06:13→19:52)
[2017-10-27 06:49] LABS: ALB/GLOB RATIO 1.3 (1.1-1.8); ALBUMIN 3.5 g/dL (3.0-4.8); BILIRUBIN,DIRECT 0.6 mg/dL (0.0-0.4); CALCIUM 8.2 mg/dL (8.4-10.5)
[2017-10-27 07:00] LABS: BASO # 0.01 K/mm3 (0.0-2.0); BASO % 0.1 % (0.0-3.0); EOS # 0.2 (0.0-0.7); GRAN # 6.71 (1.4-6.5); GRAN % 74.2 % (50.0-68.0); HEMOGLOBIN 7.8 g/dL (14.0-18.0); LYMPH # 1.2 (1.2-3.4); LYMPH % 12.9 % (22.0-35.0); MEAN CELL VOLUME 87.2 fl (80.0-105.0); MEAN CORPUSCULAR HEMOGLOBIN 28.5 pg (25.0-35.0); MEAN CORPUSCULAR HGB CONC 32.6 g/dl (31.0-37.0); MEAN PLATELET VOLUME 9.1 fl (7.0-11.0); MONO % 10.8 % (1.0-6.0); RBC 2.74 10^6/uL (3.5-6.1); RED CELL DISTRIBUTION WIDTH 20.1 % (11.5-14.5); WHITE BLOOD COUNT 9.1 10^3/ul (4.5-11.0)
[2017-10-27 07:15] LABS: INR 1.48 (0.93-1.08); PARTIAL THROMBOPLASTIN TIME 31.5 Seconds (25.1-36.5); PROTHROMBIN TIME 17.5 SECONDS (9.4-12.5)
[2017-10-27] MEDS: Insulin Reg-MEDIUM-Coverage SC SCH ×4 (08:35→21:57)
--- NOTE | 2017-10-27 09:18 | PN ---
DATE: 10/27/2017 CARDIOLOGY FOLLOWUP SUBJECTIVE: The patient is asymptomatic. He is not short of breath. PHYSICAL EXAMINATION VITAL SIGNS: Blood pressure is 164/70, the heart rate is in the 70s. NECK: Negative JVD. LUNGS: Without rales. HEART: Reveals S1, S2 with a II/ systolic ejection murmur. EXTREMITIES: Without edema. LABORATORY DATA: Hemoglobin is 7.8. Chemistries: BUN and creatinine is 65 and 6.3. IMPRESSION: 1. Aortic stenosis. 2. Gastrointestinal bleed. 3. Marked anemia. 4. End-stage renal disease. 5. Diabetes mellitus. PLAN: Given these findings, the patient's hemoglobin is stable so far. Once we have convinced the patient is no longer bleeding, we will consider cardiac catheterization for his aortic valve. Mayito Rolle MD
[2017-10-27] MEDS: Meropenem 500 MG in Sodium Chloride 0.9% 50 ML IVPB SCH (09:29)
[2017-10-27] MEDS ORDERED: Glucagon Recombinant 1 mg Inj ONE (11:21)
[2017-10-27] MEDS ORDERED: Sodium Chloride 0.9% 1,000 ML IV SCH (12:30)
--- NOTE | 2017-10-27 13:34 | PN ---
DATE: 10/27/2017 LOCATION: The patient is seen in room 268, bed 2. SUBJECTIVE: The patient received 1 unit of PRBC overnight. The patient overnight nurse's notes were reviewed. The patient is alert, awake, responsive. The patient is seen lying in the bed. No adverse events documented. The patient denies any melena or rectal bleeding. PHYSICAL EXAMINATION: VITAL SIGNS: T-max, the patient has been afebrile. Telemetry shows sinus rhythm. Respiration 18-20, O2 sat mid to high 90%. Blood pressure 138/74, 140/84. HEENT: Head: Normocephalic, atraumatic. HEENT examination shows pale conjunctivae. Anicteric sclerae. No oropharyngeal lesion. NECK: No neck rigidity. CHEST: Kyphosis. LUNGS: Shows occasional rhonchi in upper lung laguerre anteriorly. CARDIOVASCULAR: S1 and S2, regular rhythm. Positive systolic murmur left sternal border, right second intercostal space, left second intercostal space. ABDOMEN: Morbidly obese. No hepatosplenomegaly noted. No guarding. No rigidity. No rebound tenderness. GENITALIA: Male. RECTAL: Deferred. EXTREMITIES: Shows positive lymphedema of the lower extremity noted. MUSCULOSKELETAL: Shows elevated body mass index. NEUROLOGICAL: The patient is alert, awake, responsive. He is able to move upper and lower extremity without assistance. Gait examination could not be tested. VASCULAR: Could not be assessed. PSYCHIATRIC: Negative for anxiety. Negative for depression. Negative for suicidal, homicidal ideation. Negative for auditory or visual hallucinations. DIAGNOSTICS: CBC from October 27: WBCs within normal limit. Hemoglobin and hematocrit 7.8 and 24. Platelets are within normal limits. Chemistry was reviewed. The patient's glucose is slightly elevated. BUN and creatinine is chronically elevated. The patient received a total of 3 units of PRBC since hospitalization. The patient seen by Cardiology and Gastroenterology. IMPRESSION: 1. Severe symptomatic anemia with gastrointestinal bleeding and severe melena. 2. Coagulopathy secondary to Coumadin and iatrogenic coagulopathy. 3. End-stage renal disease, hemodialysis dependent. 4. Severe symptomatic anemia. 5. Status post packed red blood cell transfusion x3. 6. End-stage renal disease, hemodialysis dependent via the left upper extremity AV fistula three times a week. 7. History of aortic stenosis. 8. History of cerebral infarct. 9. Bilateral lower extremity lymphedema. 10. Right foot fourth and fifth toe osteomyelitis and diabetic foot ulceration. 11. Massive lymphedema of the lower extremity. 12. Gait dysfunction. 13. Morbid obesity. 14. Insulin-requiring diabetes mellitus. 15. Gastrointestinal bleeding. 16. Hypertension. 17. Hyperlipidemia. 18. Anemia. 19. Secondary hyperparathyroidism. 20. Hypovitaminosis D. 21. Peripheral vascular disease of the lower extremity. PLAN AT THIS TIME: The patient is seen by Gastroenterology. The patient is scheduled for endoscopy and GI workup. The patient is also scheduled for hemodialysis today. The patient will be transfused 1 or 2 more units of PRBC today on hemodialysis. The patient will be continued. The patient has been seen by Cardiology recommending cardiac catheterization once the patient's other hemodynamics data is stabilized. The patient is to be continued on IV antibiotics for completion of the treatment, 4-6 weeks treatment of right foot osteomyelitis. The patient's medication will be continued as per the MAR. In addition, the patient has been ordered out of bed, physical therapy, occupational therapy, ambulation therapy, gait training. All of the above has been discussed and explained to the patient at length and all questions and concerns answered, which he acknowledged and understand. At present, the patient's further management will be dependent upon the patient's clinical condition, hemodynamic status and as the patient response to therapeutic intervention as per the patient's diagnostic test results and as per recommendation by all the physician involved in the care of the patient. Dictated and electronically signed, not read. Steve Rincon MD
--- NOTE | 2017-10-27 17:53 | PN ---
DATE: 10/27/2017 SUBJECTIVE: The patient is seen lying in bed. He is comfortable. PHYSICAL EXAMINATION: GENERAL: Obese elderly male, lying in bed. VITAL SIGNS: Blood pressure 145/86, heart rate 74, respiratory rate 15, temperature 97.8. HEENT: Normocephalic, atraumatic. NECK: Supple. No JVD. LUNGS: Bilateral equal air entry, bilateral equal expansion, no rales. CARDIAC: S1 and S2, regular rate and rhythm, no murmur, no rub. ABDOMEN: Obese, distended, soft, nontender, bowel sounds present. EXTREMITIES: Chronic stasis changes, hyperpigmented skin. INTAKE AND OUTPUT: 1400/not charted. LABORATORY DATA: WBC 9, hemoglobin 7.8, hematocrit 24, platelets 222. Sodium 141, potassium 4.1, chloride 96, CO2 of 30, BUN 65, creatinine 6.3, glucose 128, calcium 8.2, phosphorus 2.9, magnesium 2, albumin 3.5. Endoscopy: Esophagogastric landmarks were seen. Two stigmata of recent bleeding from angiodysplastic lesions were found in the gastric antrum. A single angiodysplastic lesion with Stigmata of recent bleeding was found in the third portion of the duodenum. CURRENT MEDICATIONS: Drisdol, Enulose, insulin, Lipitor, meropenem 500, Nephro-Thomas, Percocet, Protonix, Sensipar normal saline at 100, Tylenol. ASSESSMENT: 1. Severe anemia secondary to upper gastrointestinal bleed. 2. Status post to 2 units of packed red blood cells. 3. End-stage renal disease. 4. Pby-xujiaxn-lnkwevgls diabetes mellitus. 5. Coronary artery disease. 6. Hypertension. 7. Peripheral vascular disease. 8. Secondary hyperparathyroidism. PLAN: 1. Dialysis today, transfuse 2 more units of PRBC. 2. Continue PPI. 3. Renal diet. 4. Monitor fingersticks and continue insulin. 5. Wound care for amputation sites. Svetlana Hillman MD
[2017-10-27] MEDS: Multivitamin Vitamin B Complex (Nephro-Vite) Tab PO SCH (18:53)
--- NOTE | 2017-10-27 23:16 | CP.PCM.PN ---
Subjective - Date & Time of Evaluation Date of Evaluation: 10/27/17 Time of Evaluation: 23:15 - Subjective Subjective: Discussed with manager medical affairs how to use Cathflow for occluded PICC line. Objective - Vital Signs/Intake and Output Vital Signs (last 24 hours): Temp Pulse Resp BP Pulse Ox 97.7 F 70 16 146/66 96 10/27/17 17:19 10/27/17 22:03 10/27/17 17:19 10/27/17 17:19 10/27/17 13:16 Intake and Output: 10/27/17 10/28/17 18:59 06:59 Intake Total 325 Balance 325 - Medications Medications: Current Medications Acetaminophen (Tylenol 325mg Tab) 325 mg PO Q4H PRN PRN Reason: Pain, Mild (1-3) Last Admin: 10/27/17 17:02 Dose: 325 mg Atorvastatin Calcium (Lipitor) 40 mg PO DIN [facility] Last Admin: 10/27/17 18:53 Dose: 40 mg Cinacalcet (Sensipar) 30 mg PO DAILY [facility] Last Admin: 10/27/17 18:53 Dose: 30 mg Diphenhydramine HCl (Benadryl) 25 mg PO HS PRN PRN Reason: Insomnia Ergocalciferol (Drisdol 50,000 Intl Units Cap) 1 cap PO TUE [facility] Last Admin: 10/26/17 09:47 Dose: 1 cap Furosemide (Lasix) 40 mg IVP STAT PRN PRN Reason: Post Blood Transfusion Meropenem 500 mg/ Sodium (Chloride) 50 mls @ 100 mls/hr IVPB 1400 [facility] PRN Reason: Protocol Stop: 10/31/17 10:29 Insulin Human Regular (Humulin R Med) 0 units SC ACHS [facility] PRN Reason: Protocol Last Admin: 10/27/17 21:57 Dose: Not Given Lactulose (Enulose) 20 gm PO BID [facility] Last Admin: 10/27/17 18:53 Dose: 20 gm Oxycodone/Acetaminophen (Percocet 5/325 Mg Tab) 1 tab PO Q4H PRN PRN Reason: Pain, severe (8-10) Stop: 10/28/17 22:06 Last Admin: 10/27/17 19:52 Dose: 1 tab Pantoprazole Sodium (Protonix Inj) 40 mg IVP Q12H [facility] Last Admin: 10/27/17 09:29 Dose: 40 mg Vitamin B Complex/Vit C/Folic Acid (Nephro-Thomas) 1 tab PO DAILY [facility] Last Admin: 10/27/17 18:53 Dose: 1 tab - Labs Labs: 10/27/17 06:15 10/27/17 06:15 PT 17.5 SECONDS (9.4-12.5) H 10/27/17 06:15 INR 1.48 (0.93-1.08) H 10/27/17 06:15 APTT 31.5 Seconds (25.1-36.5) 10/27/17 06:15
[2017-10-27] MEDS ORDERED: Pantoprazole 40 mg EC Tab PO STA (23:28)
--- NOTE | 2017-10-28 00:25 | CP.PCM.PN ---
Subjective - Date & Time of Evaluation Date of Evaluation: 10/28/17 Time of Evaluation: 00:22 - Subjective Subjective: CXR: No kinking of right arm PICC line noted. Second dose of Cathflow 2 mg IV was instilled after proper reconstitution of of cathflow. Instructed nurse to withdraw for blood in half hour, if that does not work, to try in 2 hours from now. Objective - Vital Signs/Intake and Output Vital Signs (last 24 hours): Temp Pulse Resp BP Pulse Ox 97.7 F 70 16 146/66 96 10/27/17 17:19 10/27/17 22:03 10/27/17 17:19 10/27/17 17:19 10/27/17 13:16 Intake and Output: 10/27/17 10/28/17 18:59 06:59 Intake Total 325 Balance 325 - Medications Medications: Current Medications Acetaminophen (Tylenol 325mg Tab) 325 mg PO Q4H PRN PRN Reason: Pain, Mild (1-3) Last Admin: 10/27/17 17:02 Dose: 325 mg Atorvastatin Calcium (Lipitor) 40 mg PO DIN [facility] Last Admin: 10/27/17 18:53 Dose: 40 mg Cinacalcet (Sensipar) 30 mg PO DAILY [facility] Last Admin: 10/27/17 18:53 Dose: 30 mg Diphenhydramine HCl (Benadryl) 25 mg PO HS PRN PRN Reason: Insomnia Ergocalciferol (Drisdol 50,000 Intl Units Cap) 1 cap PO TUE [facility] Last Admin: 10/26/17 09:47 Dose: 1 cap Furosemide (Lasix) 40 mg IVP STAT PRN PRN Reason: Post Blood Transfusion Meropenem 500 mg/ Sodium (Chloride) 50 mls @ 100 mls/hr IVPB 1400 [facility] PRN Reason: Protocol Stop: 10/31/17 10:29 Insulin Human Regular (Humulin R Med) 0 units SC ACHS [facility] PRN Reason: Protocol Last Admin: 10/27/17 21:57 Dose: Not Given Lactulose (Enulose) 20 gm PO BID [facility] Last Admin: 10/27/17 18:53 Dose: 20 gm Oxycodone/Acetaminophen (Percocet 5/325 Mg Tab) 1 tab PO Q4H PRN PRN Reason: Pain, severe (8-10) Stop: 10/28/17 22:06 Last Admin: 10/27/17 19:52 Dose: 1 tab Pantoprazole Sodium (Protonix Inj) 40 mg IVP Q12H [facility] Last Admin: 10/27/17 23:29 Dose: Not Given Vitamin B Complex/Vit C/Folic Acid (Nephro-Thomas) 1 tab PO DAILY [facility] Last Admin: 10/27/17 18:53 Dose: 1 tab - Labs Labs: 10/27/17 06:15 10/27/17 06:15 PT 17.5 SECONDS (9.4-12.5) H 10/27/17 06:15 INR 1.48 (0.93-1.08) H 10/27/17 06:15 APTT 31.5 Seconds (25.1-36.5) 10/27/17 06:15
[2017-10-28 03:11] LABS: RBC 3.39 10^6/uL (3.5-6.1); WHITE BLOOD COUNT 8.2 10^3/ul (4.5-11.0)
[2017-10-28 03:12] LABS: MEAN CELL VOLUME 88.2 fl (80.0-105.0); MEAN CORPUSCULAR HEMOGLOBIN 29.2 pg (25.0-35.0); MEAN CORPUSCULAR HGB CONC 33.1 g/dl (31.0-37.0)
[2017-10-28 03:13] LABS: BASO % 0.4 % (0.0-3.0); EOS # 0.2 (0.0-0.7); EOS % 2.2 % (1.5-5.0); GRAN # 6.46 (1.4-6.5); GRAN % 78.4 % (50.0-68.0); LYMPH # 0.9 (1.2-3.4); LYMPH % 10.7 % (22.0-35.0); MEAN PLATELET VOLUME 9.1 fl (7.0-11.0); MONO # 0.7 (0.1-0.6); MONO % 8.3 % (1.0-6.0)
[2017-10-28 03:14] LABS: BASO # 0.03 K/mm3 (0.0-2.0); HEMOGLOBIN 9.9 g/dL (14.0-18.0)
[2017-10-28 03:14] LABS: INR 1.44 (0.93-1.08); PROTHROMBIN TIME 16.5 SECONDS (9.4-12.5)
[2017-10-28 03:15] LABS: PARTIAL THROMBOPLASTIN TIME 32.4 Seconds (25.1-36.5)
[2017-10-28 03:28] LABS: ALB/GLOB RATIO 1.3 (1.1-1.8); ALBUMIN 3.7 g/dL (3.0-4.8); BILIRUBIN,DIRECT 0.5 mg/dL (0.0-0.4); CALCIUM 8.2 mg/dL (8.4-10.5)
[2017-10-28] MEDS: Oxycodone/Acetaminophen 5/325 mg Tab PO PRN (04:13)
--- NOTE | 2017-10-28 08:01 | RAD ---
HISTORY: ASSESS PICC LINE COMPARISON: 10/25/2017 FINDINGS: LUNGS: No active pulmonary disease. PLEURA: No significant pleural effusion identified, no pneumothorax apparent. CARDIOVASCULAR: Normal. OSSEOUS STRUCTURES: No significant abnormalities. VISUALIZED UPPER ABDOMEN: Normal. OTHER FINDINGS: None. IMPRESSION: PICC line is in satisfactory position with the tip at the caval atrial junction
[2017-10-28] MEDS: Insulin Reg-MEDIUM-Coverage SC SCH ×4 (08:25→22:49)
[2017-10-28] MEDS ORDERED: Potassium Chloride 20 mEq/15 ml LIQ UD PO STA (08:37)
[2017-10-28] MEDS: Multivitamin Vitamin B Complex (Nephro-Vite) Tab PO SCH (09:18)
--- NOTE | 2017-10-28 10:48 | PN ---
DATE: 10/28/2017 CARDIOLOGY FOLLOWUP The patient is status post endoscopy with two lesions cauterized. The patient had an episode of nonsustained VT yesterday. The patient is asymptomatic. OBJECTIVE: VITAL SIGNS: Blood pressure 146/74, heart rate in the 70s. NECK: Negative JVD. LUNGS: Without rales. HEART; S1, S2 with a 2/6 systolic ejection murmur. EXTREMITIES: Without edema. DATA: BUN and creatinine is 38 and 4.8, hemoglobin is 9.9 with a magnesium of 2. The potassium is 3.6. PLAN: 1. We will replace the potassium today. 2. The patient is scheduled for cardiac catheterization in the morning. Mayito Rolle MD
--- NOTE | 2017-10-28 13:08 | CARD ---
APPROVED REPORT EKG Measurement Heart [id number] <Conclusion> Sinus Rythm with occasional premature ventricular complexes
[2017-10-28] MEDS ORDERED: Meropenem 500 MG in Sodium Chloride 0.9% 50 ML IVPB SCH (14:00)
--- NOTE | 2017-10-28 14:19 | PN ---
DATE: 10/28/2017 SUBJECTIVE: The patient is sitting in a chair. He had one small amount of dark BM overnight. He denies any abdominal pain, nausea, vomiting or rectal bleeding. PHYSICAL EXAMINATION: VITAL SIGNS: Reveal temperature of 97.9, blood pressure 146/74, heart rate of 72. HEENT: Reveal sclerae to be white. Conjunctivae pale. NECK: Supple. CHEST: Reveal lungs to be clear. HEART: Exam reveals an irregular rate. ABDOMEN: Obese, soft, nontender. EXTREMITIES: Show no edema. LABORATORY DATA: Reveal hemoglobin 9.9, which is stable. BUN 38, creatinine 4.8. IMPRESSION: 1. Upper gastrointestinal bleeding secondary to a bleeding duodenal arteriovenous malformation, status post BICAP cauterization by endoscopy yesterday. 2. Chronic anemia. 3. End-stage renal disease. 4. Critical aortic stenosis. 5. History of congestive heart failure. RECOMMENDATIONS: 1. Follow serial hematocrits. 2. I would hold anticoagulation for several more days due to the high risk of rebleeding. Miguel A Rucker MD
--- NOTE | 2017-10-28 14:53 | PN ---
DATE: 10/28/2017 SUBJECTIVE: The patient is seen in room 268, bed 1. The patient is out of bed to chair. The patient is alert, awake, responsive. Overnight nurse's notes were reviewed. The patient's PICC line was unable to be flushed. The patient had short run of ventricular tachycardia. The patient had an EKG done. The patient was evaluated by the medical scribe and house physician. PHYSICAL EXAMINATION: VITAL SIGNS: T-max 98.5. At present, telemetry shows sinus rhythm. 26-beat V-tach noted. The patient was asymptomatic without any complaints. Blood pressure 146/74, respirations 20, O2 sat 95%. GENERAL: The patient is sitting up in the chair. The patient is alert, awake, oriented x3. HEENT: Head examination normocephalic, atraumatic. HEENT examination shows pinkish pale conjunctivae. Anicteric sclerae. No oropharyngeal lesion. No neck rigidity. CHEST: Symmetrical. LUNGS: Shows questionable decreased breath sounds at the bases. CARDIOVASCULAR: S1, S2, regular rhythm. Positive systolic murmur, left sternal border, right second intercostal space, left second intercostal space. ABDOMEN: Obese. Positive protuberant. Positive bowel sound. GENITALIA: Male. RECTAL: Deferred. EXTREMITY: Shows positive lymphedema of the lower extremity. Positive left upper extremity AV fistula. Positive right upper extremity PICC line. MUSCULOSKELETAL: Shows an elevated body mass index of 44.1. Gait examination: The patient is able to stand independently without any assistance. Gait examination is not tested. The patient's endoscopy report was reviewed. IMPRESSION AND PLAN: 1. Asymptomatic nonsustained ventricular tachycardia. 2. Premature ventricular contractions. 3. Questionable prolonged QT interval. 4. Hypertension. 5. Severe symptomatic anemia with melena. 6. Elevated erythrocyte sedimentation rate. 7. Status post packed red blood cell transfusion x5. 8. Normocytic anemia. 9. Granulocytosis. 10. Coagulopathy. 11. End-stage renal disease, hemodialysis dependent 3 times a week via the left upper extremity arteriovenous fistula. 12. Fecal occult blood positive. 13. Questionable right upper extremity peripherally inserted central catheter line malfunction. 14. Renal atrophy. 15. Nonobstructing renal calculi. 16. Presacral space stranding. 17. Renal osteodystrophy. 18. 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 19. Small fat containing umbilical hernia. 20. Left gynecomastia. 21. Severe symptomatic anemia secondary to gastrointestinal bleeding. 22. Coronary artery disease. 23. Peripheral vascular disease. 24. Right foot fourth and fifth toe osteomyelitis. 25. Status post upper endoscopy. 26. Gastric antral stigmata of recent bleeding and angiodysplastic lesion. 27. 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 28. Two recently bleeding angiodysplastic lesions of the gastric antrum. 29. Single recently leading angiodysplastic lesion of the duodenum. 30. Hypovitaminosis D. 31. Constipation. 32. Hyperlipidemia. 33. Secondary hyperparathyroidism. Plan at this time, the patient has been ordered repeat labs. The patient has been ordered Cardiology consultation, Gastroenterology consultation, Nephrology consultation, Infectious Disease and Podiatry consultation. CURRENT MEDICATIONS: 1. Benadryl 25 mg at bedtime p.r.n. 2. Drisdol 50,000 units weekly. 3. Lactulose 20 g twice a day. 4. Humulin R medium dose before meals and at bedtime. 5. Lipitor 40 mg daily. 6. Meropenem 500 mg daily. 7. Nephro-Thomas 1 tablet daily. 8. Percocet 5/325 one tab every 4 p.r.n. 9. Protonix 40 mg IV every 12. 10. Sensipar 30 mg daily. 11. Tylenol 650 every 4 p.r.n. Chest PT ordered, oxygen. The patient's renal diet is resumed. The patient has been ordered out of bed, REI stockings, SCDs, physical therapy, occupational therapy. The patient is yet to be seen by physical therapist. At present, the patient was seen by Cardiology. The patient will be scheduled for cardiac catheterization for evaluation of aortic stenosis. The patient was seen by Infectious Disease. Their recommendations were noted. We are awaiting Podiatry evaluation. Dictated and electronically signed, not read. Steve Rincon MD
--- NOTE | 2017-10-28 14:57 | CP.PCM.CON ---
History of Present Illness - History of Present Illness History of Present Illness: Podiatry Consult Note - Dr. Schneider 67 year old male patient PMHx IDDM, HTN, ESRD on HD MWF, CVA, cataracts seen and evaluated at bedside s/p right partial 4th and 5th metatarsal amputation and debridement of the wound with application of the graft. Patient reports that he was brought in to the hospital due to having blood in his stool. Reports that he had a GI procedure yesterday and was given total 4 units of blood since the admission. Patient reports that he is feeling a lot better today. Reports that he was last seen By Dr. Schneider in his office where he debrided the wound and applied the dressing. Patient denies of any pain in his feet today. Reports that he has been ambulating in with a surgical shoe during the PT session. Reports that he recently completed the 6 weeks of IV abx. Denies of having any recent F/N/V/C/SOB/CP/headache. Denies of any other pedal complains at this time. PMHx: IDDM, HTN, ESRD on HD MWF, CVA, cataracts PSHx: Cataract surgery ([place]); Right foot partial 4th and 5th ray resection Allergies: N.K.D.A SHx: denies tobacco, alcohol, illicit drug use Review of Systems - Constitutional Constitutional: As Per HPI Past Patient History - Infectious Disease Hx of Infectious Diseases: None - Tetanus Immunizations Tetanus Immunization: Unknown - Past Social History Smoking Status: Never Smoked - CARDIAC Hx Congestive Heart Failure: Yes Hx Hypercholesterolemia: Yes Hx Hypertension: Yes - PULMONARY Hx Respiratory Disorders: Yes Hx Pneumonia: Yes - NEUROLOGICAL HX Cerebrovascular Accident: Yes - HEENT Hx HEENT Problems: Yes Hx Cataracts: Yes - RENAL Hx Chronic Kidney Disease: Yes Date of Last Dialysis Treatment: 10/25/17 Hx Renal Failure: Yes (on HD (M/W/F)) - ENDOCRINE/METABOLIC Hx Diabetes Mellitus Type 2: Yes - HEMATOLOGICAL/ONCOLOGICAL Hx Blood Transfusions: Yes Hx Blood Transfusion Reaction: No - INTEGUMENTARY Hx Dermatological Problems: No - MUSCULOSKELETAL/RHEUMATOLOGICAL Hx Musculoskeletal Disorders: Yes Hx Falls: No Hx Osteomyelitis: Yes Hx Unsteady Gait: Yes Other/Comment: PVD, - GASTROINTESTINAL Hx Gastrointestinal Disorders: Yes Hx Gastroesophageal Reflux: Yes - GENITOURINARY/GYNECOLOGICAL Hx Genitourinary Disorders: Yes (ESRD ON HD) - PSYCHIATRIC Hx Emotional Abuse: No Hx Physical Abuse: No Hx Substance Use: No - SURGICAL HISTORY Hx Surgeries: Yes - ANESTHESIA Hx Anesthesia Reactions: No Hx Malignant Hyperthermia: No Meds Allergies/Adverse Reactions: Allergies Allergy/AdvReac Type Severity Reaction Status Date / Time No Known Allergies Allergy Verified 08/31/17 22:02 - Medications Medications: Current Medications Acetaminophen (Tylenol 325mg Tab) 325 mg PO Q4H PRN PRN Reason: Pain, Mild (1-3) Last Admin: 10/28/17 01:08 Dose: 325 mg Atorvastatin Calcium (Lipitor) 40 mg PO DIN [facility] Last Admin: 10/27/17 18:53 Dose: 40 mg Cinacalcet (Sensipar) 30 mg PO DAILY [facility] Last Admin: 10/28/17 09:18 Dose: 30 mg Diphenhydramine HCl (Benadryl) 25 mg PO HS PRN PRN Reason: Insomnia Ergocalciferol (Drisdol 50,000 Intl Units Cap) 1 cap PO TUE [facility] Last Admin: 10/26/17 09:47 Dose: 1 cap Furosemide (Lasix) 40 mg IVP STAT PRN PRN Reason: Post Blood Transfusion Insulin Human Regular (Humulin R Med) 0 units SC ACHS [facility] PRN Reason: Protocol Last Admin: 10/28/17 11:29 Dose: Not Given Lactulose (Enulose) 20 gm PO BID [facility] Last Admin: 10/28/17 09:18 Dose: 20 gm Oxycodone/Acetaminophen (Percocet 5/325 Mg Tab) 1 tab PO Q4H PRN PRN Reason: Pain, severe (8-10) Stop: 10/28/17 22:06 Last Admin: 10/28/17 04:13 Dose: 1 tab Pantoprazole Sodium (Protonix Inj) 40 mg IVP Q12H [facility] Last Admin: 10/28/17 09:18 Dose: 40 mg Vitamin B Complex/Vit C/Folic Acid (Nephro-Thomas) 1 tab PO DAILY [facility] Last Admin: 10/28/17 09:18 Dose: 1 tab Physical Exam - Constitutional Appears: Well, Non-toxic, No Acute Distress - Extremities Exam Additional comments: Right foot focused. No calf tenderness with palpation. VASC: DP pulses palpable 2/4. PT pulses weakly palpable 1/4. Cap refill time: approx 3 sec to all 3 digits. Temperature gradient warm to cool from proximal to distal. no pitting or non-pitting edema noted DERM: Full thickness surgical wound noted to lateral aspect of foot measuring approx. 6 cm x 3 cm with mixed wound bed (70% granular, 30% fibrotic). No drainage noted to the surgical site, wound base appears to be more dry. There is no mal-odor noted, no purulence. No erythema, no tracking, no tunneling, no undermining, no probe to bone, no clinical suspicion of active infection, Hallux distal tuft ischemic change noted NEURO: Gross sensation diminished. ORTHO: 4th and 5th partial metatarsal amputation. Tenderness to palpation to entire right foot wound. No pain on palpation digits 1-3. - Neurological Exam Neurological exam: Alert, Oriented x3 - Psychiatric Exam Psychiatric exam: Normal Affect, Normal Mood Results - Vital Signs Recent Vital Signs: Last Vital Signs Temp 97.8 F 10/28/17 12:00 Pulse 58 L 10/28/17 12:00 Resp 17 10/28/17 12:00 BP 153/72 H 10/28/17 12:00 Pulse Ox 95 10/28/17 06:00 - Labs Result Diagrams: 10/28/17 02:45 10/28/17 02:45 Labs: Laboratory Results - last 24 hr 10/27/17 10/27/17 10/27/17 13:48 18:34 21:40 WBC RBC Hgb Hct MCV MCH MCHC RDW Plt Count MPV Gran % Lymph % (Auto) [place] % (Auto) Eos % (Auto) Baso % (Auto) Gran # Lymph # (Auto) [place] # (Auto) Eos # (Auto) Baso # (Auto) PT INR APTT Sodium Potassium Chloride Carbon Dioxide Anion Gap BUN Creatinine Est GFR ( Amer) Est GFR (Non-Af Amer) POC Glucose (mg/dL) 164 H 97 226 H Random Glucose Calcium Phosphorus Magnesium Total Bilirubin Direct Bilirubin AST ALT Alkaline Phosphatase Troponin I Total Protein Albumin Globulin Albumin/Globulin Ratio Blood Type Antibody Screen Crossmatch BBK History Checked 10/28/17 10/28/17 10/28/17 02:40 02:40 02:40 WBC RBC Hgb Hct MCV MCH MCHC RDW Plt Count MPV Gran % Lymph % (Auto) [place] % (Auto) Eos % (Auto) Baso % (Auto) Gran # Lymph # (Auto) [place] # (Auto) Eos # (Auto) Baso # (Auto) PT 16.5 H INR 1.44 H APTT 32.4 Sodium Potassium Chloride Carbon Dioxide Anion Gap BUN Creatinine Est GFR ( Amer) Est GFR (Non-Af Amer) POC Glucose (mg/dL) Random Glucose Calcium Phosphorus Magnesium Total Bilirubin Direct Bilirubin AST ALT Alkaline Phosphatase Troponin I 0.05 Total Protein Albumin Globulin Albumin/Globulin Ratio Blood Type A POSITIVE Antibody Screen Negative Crossmatch See Detail BBK History Checked Patient has bt 10/28/17 10/28/17 10/28/17 02:45 02:45 07:36 WBC 8.2 RBC 3.39 L Hgb 9.9 L D Hct 29.9 L MCV 88.2 MCH 29.2 MCHC 33.1 RDW 19.0 H Plt Count 196 MPV 9.1 Gran % 78.4 H Lymph % (Auto) 10.7 L [place] % (Auto) 8.3 H Eos % (Auto) 2.2 Baso % (Auto) 0.4 Gran # 6.46 Lymph # (Auto) 0.9 L [place] # (Auto) 0.7 H Eos # (Auto) 0.2 Baso # (Auto) 0.03 PT INR APTT Sodium 139 Potassium 3.6 Chloride 94 L Carbon Dioxide 33 Anion Gap 16 BUN 38 H Creatinine 4.8 H Est GFR ( Amer) 15 Est GFR (Non-Af Amer) 12 POC Glucose (mg/dL) 107 Random Glucose 105 Calcium 8.2 L Phosphorus 2.9 Magnesium 2.0 Total Bilirubin 0.8 Direct Bilirubin 0.5 H AST 30 ALT 23 Alkaline Phosphatase 118 Troponin I Total Protein 6.6 Albumin 3.7 Globulin 2.9 Albumin/Globulin Ratio 1.3 Blood Type Antibody Screen Crossmatch BBK History Checked Assessment & Plan - Assessment and Plan (Free Text) Assessment: 66 year old male with right foot full thickness wound s/p partial 4th and 5th metatarsals amputation Plan: Patient seen and evaluated Discussed plan with attending Dr. Schneider Labs, vitals and charts reviewed - afebrile, WBC @ 8.2 Patient recently completed 6 weeks of IV abx Wound cleaned with sterile saline and dressed using Xeroform, DSD Santyl ordered Patient to weight bear as tolerated Thank you for the podiatry consult and allowing to take part in patient care Podiatry to follow patient while in-house - Date & Time Date: 10/28/17 Time: 13:00
--- NOTE | 2017-10-28 17:31 | PN ---
DATE: 10/28/2017 SUBJECTIVE: The patient is seen lying in bed. He seems to be sleeping/resting comfortably. PHYSICAL EXAMINATION: GENERAL: Obese elderly male, lying in bed. VITAL SIGNS: Blood pressure 153/72, heart rate 58, respiratory rate 17, temperature 97.8. HEENT: Normocephalic, atraumatic, positive pallor. NECK: Supple, no JVD. LUNGS: Bilateral equal air entry, bilateral equal expansion, bilateral rhonchi. CARDIAC: S1 and S2, regular rate and rhythm, no murmur, no rub. ABDOMEN: Obese, distended, soft, nontender, bowel sounds present. EXTREMITIES: 3+ pitting edema of the lower extremities. INTAKE AND OUTPUT: Not charted. LABORATORY DATA: WBC 8, hemoglobin 9.9, hematocrit 30, platelets 196. Sodium 139, potassium 3.6, chloride 94, CO2 of 33, BUN 38, creatinine 4.8, glucose 105, calcium 8.2, phosphorus 2.9, magnesium 2, albumin 3.7. Stool occult positive. CURRENT MEDICATIONS: Benadryl, Drisdol, Enulose, insulin, Lasix was given, Lipitor, Protonix, Sensipar, Tylenol. Five units of PRBC total given so far. ASSESSMENT: 1. Severe anemia/gastrointestinal bleed. 2. Morbid obesity. 3. Ktb-rjlbvbi-ezgbuspqd diabetes mellitus. 4. Hypertension. 5. Volume overload. 6. Peripheral vascular disease. PLAN: 1. Ultrafiltration today. 2. Monitor H&H. 3. For cardiac cath tomorrow morning because of nonsustained VT. 4. Continue insulin coverage. 5. Continue to monitor closely. Svetlana Hillman MD
--- NOTE | 2017-10-28 23:28 | PN ---
DATE: 10/28/2017 SUBJECTIVE: The patient seen in room 268, bed 1, early this morning. No fevers. No chills. OBJECTIVE: VITAL SIGNS: Temperature is 98, blood pressure is 150/70, respiratory rate of 18, heart rate of 58. HEENT: Unremarkable. NECK: Supple. LUNGS: Have decreased breath sounds. HEART: Normal S1, S2. ABDOMEN: Soft. LABORATORY DATA: Reveals a white count of 8.2, hemoglobin of 9.9, platelets of 196. BUN of 38, creatinine of 4.8. Surgical operative note is reviewed for the esophagogastroduodenoscopy. ASSESSMENT AND PLAN: This 67-year-old male with chronic renal failure on hemodialysis, anemia, who presented for dialysis because of low hemoglobin, found to have a dark stool and patient had a fifth toe infection had fifth metatarsal partial amputation and has completed 6 weeks of antibiotics, intermittent vancomycin and meropenem. No further antibiotics at this point. GI workup in progress. Currently off of antibiotics. We will follow with you. Cornell Pelaez MD
[2017-10-29 06:26] LABS: BASO # 0.01 K/mm3 (0.0-2.0); BASO % 0.1 % (0.0-3.0); EOS # 0.2 (0.0-0.7); EOS % 2.9 % (1.5-5.0); GRAN # 6.19 (1.4-6.5); GRAN % 75.4 % (50.0-68.0); HEMOGLOBIN 9.4 g/dL (14.0-18.0); LYMPH # 1.1 (1.2-3.4); LYMPH % 13.9 % (22.0-35.0); MEAN CELL VOLUME 88.5 fl (80.0-105.0); MEAN CORPUSCULAR HEMOGLOBIN 28.5 pg (25.0-35.0); MEAN CORPUSCULAR HGB CONC 32.2 g/dl (31.0-37.0); MEAN PLATELET VOLUME 9.6 fl (7.0-11.0); MONO # 0.6 (0.1-0.6); MONO % 7.7 % (1.0-6.0); RBC 3.3 10^6/uL (3.5-6.1); RED CELL DISTRIBUTION WIDTH 18.5 % (11.5-14.5); WHITE BLOOD COUNT 8.2 10^3/ul (4.5-11.0)
[2017-10-29 06:46] LABS: ALB/GLOB RATIO 1.2 (1.1-1.8); ALBUMIN 3.5 g/dL (3.0-4.8); BILIRUBIN,DIRECT 0.5 mg/dL (0.0-0.4); CALCIUM 7.8 mg/dL (8.4-10.5)
[2017-10-29 06:47] LABS: INR 1.36 (0.93-1.08); PARTIAL THROMBOPLASTIN TIME 32.3 Seconds (25.1-36.5); PROTHROMBIN TIME 15.7 SECONDS (9.4-12.5)
[2017-10-29] MEDS: Insulin Reg-MEDIUM-Coverage SC SCH ×4 (09:23→21:37)
[2017-10-29] MEDS ORDERED: Midazolam 2 MG/2 ML VIAL ONE ×2 (09:48→10:49)
[2017-10-29] MEDS ORDERED: Lidocaine 2% Inj (20ml) ONE (09:48)
[2017-10-29] MEDS ORDERED: Iodixanol 320 MG/ML 200 ML BOTTLE IV ONE ×2 (09:49→10:25)
[2017-10-29] MEDS ORDERED: Heparin 2,000 ML IV ONE (10:23)
[2017-10-29] MEDS ORDERED: Iodixanol 320 MG/ML 100 ML BOTTLE IV ONE (10:27)
--- NOTE | 2017-10-29 11:09 | PN ---
DATE: 10/29/2017 SUBJECTIVE: The patient is lying in bed comfortable. He has not had any further melena. He denies any abdominal pain, chest pain or shortness of breath. PHYSICAL EXAMINATION: VITAL SIGNS: Reveal temperature of 98, blood pressure 128/65, heart rate of 70. HEENT: Reveal sclerae to be white. Conjunctivae pale. NECK: Supple. CHEST: Lungs are clear. HEART: Reveals a regular rate and rhythm. There is a III/ systolic murmur. ABDOMEN: Obese, soft, nontender. EXTREMITIES: Show no edema. LABORATORY DATA: Reveal hemoglobin of 9.4, this is stable; white blood cell count 8.2; platelet count of 192,000. Chemistries reveal BUN 50, creatinine 6.8. IMPRESSION: 1. 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 2. Critical aortic stenosis. 3. History of paroxysmal atrial fibrillation with cerebrovascular accident. 4. End-stage renal disease. 5. Congestive heart failure. 6. Peripheral arterial disease. 7. Diabetes mellitus. 8. Hypertension. RECOMMENDATIONS: 1. The patient is to have cardiac catheterization today. 2. I would hold Coumadin for several weeks given recent significant upper GI hemorrhage. 3. Iron replacement. 4. Dialysis as per Renal. The patient's medications currently include Drisdol 50,000 units weekly, lactulose 20 mg p.o. b.i.d., Lipitor 40 mg daily, vitamin B complex daily, pantoprazole 40 mg IV every 12 hours, Sensipar 30 mg daily. Miguel A Rucker MD
--- NOTE | 2017-10-29 12:27 | PN ---
DATE: 10/29/2017 LOCATION: The patient is in [facility] in [place], room 268, bed 1. SUBJECTIVE: The patient was admitted with GI bleeding. The patient was in [facility], recovering from infection of his foot. The patient has past history of hypertension; diabetes mellitus, insulin-dependent. He is on renal failure, dialysis. The patient has history of GI disorder and gastritis. The patient is on anticoagulation. PHYSICAL EXAMINATION VITAL SIGNS: The patient's pulse is 73, blood pressure 120/65, respirations are 20, O2 sat is 98%. The patient's temperature 98. LUNGS: Clinically clear. HEART: Normal sinus rhythm ABDOMEN: Soft. Liver and spleen not palpable. CENTRAL NERVOUS SYSTEM: The patient is in no focal neurological deficits. The patient is waiting to have a cardiac catheterization by Dr. Mayito Rolle, the [employer]. MEDICATIONS: The patient's list of medications consists of Benadryl, the patient is on 25 mg at night time. The patient is on Lasix, insulin coverage, Lipitor, pantoprazole for GI disorder. The patient is on Sensipar for renal failure and Tylenol for pain. LABORATORY DATA: The patient's blood work, the hemoglobin is 9.4. The patient's hemoglobin at the time of admission to the hospital was 6.4. The patient has received blood transfusion. Chemistry, the patient has renal failure. The creatinine is 6.8, BUN is 50. The other parameters are within normal range. The patient's condition is clinically acute. The patient's overall prognosis is guarded. Prabha Zarco MD
--- NOTE | 2017-10-29 14:35 | CP.PCM.PN ---
Subjective - Date & Time of Evaluation Date of Evaluation: 10/29/17 Time of Evaluation: 14:32 - Subjective Subjective: Podiatry Progress note: Dr. Schneider 67 year old male patient seen and evaluated at bedside for a wound s/p right partial 4th and 5th metatarsal amputation. Patient reports that he just returned from [employer]. Reports that he is going home today. Denies of any pain to his feet. Reports that his feet are only painful when someone touches the wound. Denies of any acute overnight events. Denies F/N/V/C/SOB/CP/headache. Denies of any other pedal complains at this time. Objective - Vital Signs/Intake and Output Vital Signs (last 24 hours): Temp Pulse Resp BP Pulse Ox 97.7 F 78 18 126/67 98 10/29/17 13:14 10/29/17 14:14 10/29/17 14:14 10/29/17 14:14 10/29/17 06:00 Intake and Output: 10/29/17 10/29/17 06:59 18:59 Intake Total 220 Output Total 0 Balance 220 - Medications Medications: Current Medications Acetaminophen (Tylenol 325mg Tab) 325 mg PO Q4H PRN PRN Reason: Pain, Mild (1-3) Last Admin: 10/29/17 14:11 Dose: 325 mg Atorvastatin Calcium (Lipitor) 40 mg PO DIN [facility] Last Admin: 10/28/17 19:38 Dose: 40 mg Cinacalcet (Sensipar) 30 mg PO DAILY [facility] Last Admin: 10/28/17 09:18 Dose: 30 mg Collagenase (Santyl) 10 gm TOP DAILY [facility] Diphenhydramine HCl (Benadryl) 25 mg PO HS PRN PRN Reason: Insomnia Ergocalciferol (Drisdol 50,000 Intl Units Cap) 1 cap PO TUE [facility] Last Admin: 10/26/17 09:47 Dose: 1 cap Furosemide (Lasix) 40 mg IVP STAT PRN PRN Reason: Post Blood Transfusion Insulin Human Regular (Humulin R Med) 0 units SC ACHS [facility] PRN Reason: Protocol Last Admin: 10/29/17 14:29 Dose: Not Given Lactulose (Enulose) 20 gm PO BID [facility] Last Admin: 10/29/17 09:24 Dose: Not Given Pantoprazole Sodium (Protonix Inj) 40 mg IVP Q12H [facility] Last Admin: 10/29/17 09:26 Dose: 40 mg Vitamin B Complex/Vit C/Folic Acid (Nephro-Thomas) 1 tab PO DAILY [facility] Last Admin: 10/28/17 09:18 Dose: 1 tab - Labs Labs: 10/29/17 05:40 10/29/17 05:40 PT 15.7 SECONDS (9.4-12.5) H 10/29/17 05:40 INR 1.36 (0.93-1.08) H 10/29/17 05:40 APTT 32.3 Seconds (25.1-36.5) 10/29/17 05:40 - Constitutional Appears: Well, Non-toxic, No Acute Distress - Extremities Exam Additional comments: Right foot focused. No calf tenderness with palpation. VASC: DP pulses palpable 2/4. PT pulses weakly palpable 1/4. Cap refill time: approx 3 sec to all 3 digits. Temperature gradient warm to cool from proximal to distal. no pitting or non-pitting edema noted DERM: Full thickness surgical wound noted to lateral aspect of foot measuring approx. 6 cm x 3 cm with mixed wound bed (70% granular, 30% fibrotic). No drainage noted to the surgical site, wound base appears to be more dry. There is no mal-odor noted, no purulence. No erythema, no tracking, no tunneling, no undermining, no probe to bone, no clinical suspicion of active infection, Hallux distal tuft ischemic change noted NEURO: Gross sensation diminished. ORTHO: 4th and 5th partial metatarsal amputation. Tenderness to palpation to entire right foot wound. No pain on palpation digits 1-3. - Neurological Exam Neurological Exam: Alert, Awake, Oriented x3 - Psychiatric Exam Psychiatric exam: Normal Affect, Normal Mood Assessment and Plan - Assessment and Plan (Free Text) Assessment: 66 year old male with right foot full thickness wound s/p partial 4th and 5th metatarsals amputation Plan: Patient seen and evaluated Discussed plan with attending Dr. Schneider Labs, vitals and charts reviewed - afebrile, WBC @ 8.2 Patient recently completed 6 weeks of IV abx Wound cleaned with sterile saline and dressed using Santyl, DSD Patient to weight bear as tolerated Podiatry to follow patient while in-house Follow up with Dr. Schneider in his office upon discharge from the hospital
[2017-10-29] MEDS: Multivitamin Vitamin B Complex (Nephro-Vite) Tab PO SCH (14:36)
[2017-10-29] MEDS: Collagenase 250 Units/gm Ointment(30 gm) TOP SCH (14:36)
--- NOTE | 2017-10-29 15:38 | CARDCATH ---
PROCEDURE DATE: 10/29/2017 HISTORY: The patient is a 67-year-old male with multiple issues including end-stage renal disease, sepsis in the lower extremities and he was treated with antibiotics, hypertension, diabetes mellitus and hypercholesterolemia, who presents with documented aortic stenosis. A cardiac catheterization was for the evaluation of his aortic valve. The right femoral artery was cannulated with 6-Nepalese sheath. The right femoral vein was cannulated with a 7-Nepalese sheath. There were no complications. Right heart pressure measurements, cardiac outputs by thermal dilution, left ventriculogram, supra-aortic valvular injection and coronary arteriography was performed. There were no complications. I performed moderate sedation, which included the presence of an independent trained observer that assisted in monitoring the patient's level of consciousness and physiologic status. After administration of Versed and fentanyl, my intra service time was 30 minutes. The findings on catheterization included right atrial mean pressure was 16 mmHg, RV pressure was 86/18 mmHg, pulmonary artery pressures were 86/33 mmHg with a mean of 50 mmHg, pulmonary capillary wedge pressure mean was 25 mmHg. Simultaneous LV and supra-aortic and supravalvular measurements revealed a mean gradient of 36 mmHg. With a cardiac output of 5.2 L per minute, the aortic valve measurement was 0.6 cm2. Angiographic studies included supra-aortic valvular injection, which revealed 1+ aortic insufficiency. LV function was visualized in the DE DIOS projection. In the DE DIOS projection, wall motion was normal with an EF of 60%. His coronary anatomy revealed a right dominant circulation. The RCA revealed intimal irregularities without significant stenoses. The left main artery was unremarkable. The LAD and diagonal vessels revealed intimal irregularities without significant stenoses. The circumflex artery and obtuse marginal branches revealed intimal irregularities without significant stenoses. Angio-Seal was used to close the right femoral artery site. A Mynx system was used to close the left femoral artery site. The patient tolerated the procedure well. In summary, the procedure revealed, 1. Critical aortic stenosis with a valve area of 0.6 cm2. 2. Mild aortic insufficiency. 3. Normal LV function. 4. No significant coronary artery disease. 5. Moderate to severe pulmonary hypertension. Given these findings, the patient will need to have his aortic valve replaced. We will arrange for the patient to undergo TAVR once his infection is complete. Mayito Rolle MD [facility] # [id number]
--- NOTE | 2017-10-29 22:09 | PN ---
DATE: 10/29/2017 SUBJECTIVE: The patient is seen in the dialysis unit. He is awake, he is alert, he is comfortable. He denies any pain. He denies any shortness of breath. PHYSICAL EXAMINATION: GENERAL: Morbidly obese elderly male lying in bed. VITAL SIGNS: Blood pressure 180/72, heart rate 71, respiratory rate 20, temperature 97.4. HEENT: Normocephalic, atraumatic, positive pallor. NECK: Supple, no JVD. LUNGS: Bilateral equal air entry, bilateral equal expansion. CARDIAC: S1 and S2, regular rate and rhythm, no murmur, no rub. ABDOMEN: Obese, distended, soft, nontender, bowel sounds present. EXTREMITIES: Dressing of the right foot. INTAKE AND OUTPUT: Not charted. LABORATORY DATA: WBC 8.2, hemoglobin 9.4, hematocrit 29, platelets 192. Sodium 138, potassium 4.2, chloride 95, CO2 of 30, BUN 50, creatinine 6.8, glucose 141, calcium 7.8, phosphorus 3.7, magnesium 2. Albumin 3.5. Cardiac catheterization reports critical aortic stenosis with a valve area 0.6 cm2, mild aortic insufficiency, normal LV function, no significant CAD, [id number] pulmonary hypertension. MEDICATIONS: List reviewed. ASSESSMENT: 1. Acute gastrointestinal bleed. 2. Severe anemia. 3. Peripheral vascular disease. 4. Wound infection. 5. Coronary artery disease. 6. Critical aortic stenosis. 7. Swq-tfjjtgp-[id number] diabetes mellitus. 8. Hypertension. 9. End-stage renal disease. PLAN: 1. Stable dialysis today. 2. The patient received multiple transfusions, monitor H and H. 3. Continue antibiotics for wound infection. 4. To have TAVR once infection is cleared up. Svetlana Hillman MD
[2017-10-30 00:31] VITALS: O2SAT 95
[2017-10-30 05:53] VITALS: RESP 20
[2017-10-30 07:08] LABS: BASO # 0.02 K/mm3 (0.0-2.0); BASO % 0.3 % (0.0-3.0); EOS # 0.2 (0.0-0.7); EOS % 3.1 % (1.5-5.0); GRAN # 5.74 (1.4-6.5); GRAN % 75.2 % (50.0-68.0); HEMOGLOBIN 9.6 g/dL (14.0-18.0); LYMPH # 0.9 (1.2-3.4); LYMPH % 11.3 % (22.0-35.0); MEAN CELL VOLUME 88.4 fl (80.0-105.0); MEAN CORPUSCULAR HEMOGLOBIN 28.6 pg (25.0-35.0); MEAN CORPUSCULAR HGB CONC 32.3 g/dl (31.0-37.0); MEAN PLATELET VOLUME 9.8 fl (7.0-11.0); MONO # 0.8 (0.1-0.6); MONO % 10.1 % (1.0-6.0); RBC 3.36 10^6/uL (3.5-6.1); RED CELL DISTRIBUTION WIDTH 18.4 % (11.5-14.5); WHITE BLOOD COUNT 7.6 10^3/ul (4.5-11.0)
[2017-10-30 07:32] LABS: INR 1.23 (0.93-1.08); PROTHROMBIN TIME 14.2 SECONDS (9.4-12.5)
[2017-10-30] MEDS: Insulin Reg-MEDIUM-Coverage SC SCH ×2 (07:37→12:24)
[2017-10-30 07:41] LABS: PARTIAL THROMBOPLASTIN TIME 31.7 Seconds (25.1-36.5)
[2017-10-30 08:12] LABS: ALB/GLOB RATIO 1.2 (1.1-1.8); ALBUMIN 3.5 g/dL (3.0-4.8); BILIRUBIN,DIRECT 0.6 mg/dL (0.0-0.4); CALCIUM 8.1 mg/dL (8.4-10.5)
--- NOTE | 2017-10-30 09:14 | CP.PCM.PN ---
Subjective - Date & Time of Evaluation Date of Evaluation: 10/30/17 Time of Evaluation: 09:12 - Subjective Subjective: Podiatry Progress note: Dr. Schneider 67 year old male patient seen and evaluated at bedside for a wound s/p right partial 4th and 5th metatarsal amputation. 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 Reports that he is going home today. Denies of any pain to his feet. Reports that his feet are only painful when someone touches the wound. Denies of any acute overnight events. Denies F/N/V/C/SOB/CP/headache. Denies of any other pedal complains at this time. Objective - Vital Signs/Intake and Output Vital Signs (last 24 hours): Temp Pulse Resp BP Pulse Ox 97.6 F 72 20 166/76 H 95 10/30/17 05:52 10/30/17 05:52 10/30/17 05:52 10/30/17 05:52 10/30/17 05:52 Intake and Output: 10/30/17 10/30/17 06:59 18:59 Intake Total 480 Balance 480 - Medications Medications: Current Medications Acetaminophen (Tylenol 325mg Tab) 325 mg PO Q4H PRN PRN Reason: Pain, Mild (1-3) Last Admin: 10/29/17 20:20 Dose: 325 mg Atorvastatin Calcium (Lipitor) 40 mg PO DIN [facility] Last Admin: 10/29/17 20:21 Dose: 40 mg Cinacalcet (Sensipar) 30 mg PO DAILY [facility] Last Admin: 10/29/17 14:36 Dose: 30 mg Collagenase (Santyl) 10 gm TOP DAILY [facility] Last Admin: 10/29/17 14:36 Dose: Not Given Diphenhydramine HCl (Benadryl) 25 mg PO HS PRN PRN Reason: Insomnia Ergocalciferol (Drisdol 50,000 Intl Units Cap) 1 cap PO TUE [facility] Last Admin: 10/26/17 09:47 Dose: 1 cap Furosemide (Lasix) 40 mg IVP STAT PRN PRN Reason: Post Blood Transfusion Insulin Human Regular (Humulin R Med) 0 units SC ACHS [facility] PRN Reason: Protocol Last Admin: 10/30/17 07:37 Dose: Not Given Lactulose (Enulose) 20 gm PO BID [facility] Last Admin: 10/29/17 20:20 Dose: 20 gm Pantoprazole Sodium (Protonix Inj) 40 mg IVP Q12H [facility] Last Admin: 10/29/17 21:51 Dose: 40 mg Vitamin B Complex/Vit C/Folic Acid (Nephro-Thomas) 1 tab PO DAILY [facility] Last Admin: 10/29/17 14:36 Dose: 1 tab - Labs Labs: 10/30/17 06:00 10/30/17 06:00 PT 14.2 SECONDS (9.4-12.5) H 10/30/17 06:00 INR 1.23 (0.93-1.08) H 10/30/17 06:00 APTT 31.7 Seconds (25.1-36.5) 10/30/17 06:00 - Constitutional Appears: Well, Non-toxic, No Acute Distress - Extremities Exam Additional comments: Right foot focused. No calf tenderness with palpation. VASC: DP pulses palpable 2/4. PT pulses weakly palpable 1/4. Cap refill time: approx 3 sec to all 3 digits. Temperature gradient warm to cool from proximal to distal. no pitting or non-pitting edema noted DERM: Full thickness surgical wound noted to lateral aspect of foot measuring approx. 6 cm x 3 cm with mixed wound bed (70% granular, 30% fibrotic). No drainage noted to the surgical site, wound base appears to be more dry. There is no mal-odor noted, no purulence. No erythema, no tracking, no tunneling, no undermining, no probe to bone, no clinical suspicion of active infection, Hallux distal tuft ischemic change noted NEURO: Gross sensation diminished. ORTHO: 4th and 5th partial metatarsal amputation. Tenderness to palpation to entire right foot wound. No pain on palpation digits 1-3. - Neurological Exam Neurological Exam: Alert, Awake, Oriented x3 - Psychiatric Exam Psychiatric exam: Normal Affect, Normal Mood Assessment and Plan - Assessment and Plan (Free Text) Assessment: 66 year old male with right foot full thickness wound s/p partial 4th and 5th metatarsals amputation Plan: Patient seen and evaluated Discussed plan with attending Dr. Schneider Labs, vitals and charts reviewed - afebrile, WBC @ 7.6 Patient recently completed 6 weeks of IV abx Wound cleaned with sterile saline and dressed using Santyl, DSD Patient to weight bear as tolerated Podiatry to follow patient while in-house Follow up with Dr. Schneider in his office upon discharge from the hospital
[2017-10-30] MEDS: Multivitamin Vitamin B Complex (Nephro-Vite) Tab PO SCH (09:50)
[2017-10-30] MEDS: Collagenase 250 Units/gm Ointment(30 gm) TOP SCH (09:52)
--- NOTE | 2017-10-30 11:05 | PN ---
DATE: 10/30/2017 LOCATION: Patient is in room 268, bed 1 at [facility] in [place]. Patient was admitted from [facility] where he was getting rehab and continued antibiotic treatment for infection of his foot. Patient had GI bleeding. He has dropped his hemoglobin and was brought to the Emergency Room. He was admitted. After evaluation, patient did receive blood transfusion, GI evaluation by Dr. Rucker. Patient had cardiac evaluation by Dr. Rolle and his past history is significant in that he has history of long-term diabetes, patient is on renal failure treatment with dialysis on a regular basis three times a week. The patient has been on anticoagulation, which has been held for now. Patient also has history of being treated with Sensipar for renal failure, Lasix for congestive heart failure. Patient is on Lipitor, vitamin B complex, vitamin D, insulin coverage for diabetes and the patient is also getting wound care. Patient feels good, he wants to go home. He has had a cardiac cath done [address] Mayito Rolle. The patient had significant aortic stenosis. 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 Patient has pulmonary hypertension. Coronary artery appears to be in pretty good condition at this time with minimal atherosclerosis. No obstruction. PHYSICAL EXAMINATION: VITAL SIGNS: This morning, the pulse is 72, blood pressure 166/76, respirations 20, O2 sat 95% on room air, temperature 97.6. LUNGS: Clear. HEART: Normal sinus rhythm. S1, S2 present. ABDOMEN: Soft. Obesity present. CENTRAL NERVOUS SYSTEM: No focal deficits. He is getting wound care for the ulcerations and the patient is also advised regarding foot hygiene. Patient will continue the medication at home. Currently, the patient has not been on any anticoagulation. He will be in touch with Dr. Steve Rincon on Wednesday for followup. His overall prognosis is guarded. Condition is much improved. Patient is satisfied and is happy that he is able to get home today. Prabha Zarco MD
--- NOTE | 2017-10-30 12:01 | CP.PCM.PN ---
Subjective - Date & Time of Evaluation Date of Evaluation: 10/30/17 Time of Evaluation: 10:25 - Subjective Subjective: Comfortable in bed, no fevers, not in distress. Objective - Vital Signs/Intake and Output Vital Signs (last 24 hours): Temp Pulse Resp BP Pulse Ox 97.6 F 72 20 166/76 H 95 10/30/17 05:52 10/30/17 05:52 10/30/17 05:52 10/30/17 05:52 10/30/17 05:52 Intake and Output: 10/30/17 10/30/17 06:59 18:59 Intake Total 480 Balance 480 - Medications Medications: Current Medications Acetaminophen (Tylenol 325mg Tab) 325 mg PO Q4H PRN PRN Reason: Pain, Mild (1-3) Last Admin: 10/29/17 20:20 Dose: 325 mg Atorvastatin Calcium (Lipitor) 40 mg PO DIN [facility] Last Admin: 10/29/17 20:21 Dose: 40 mg Cinacalcet (Sensipar) 30 mg PO DAILY [facility] Last Admin: 10/30/17 09:50 Dose: 30 mg Collagenase (Santyl) 10 gm TOP DAILY [facility] Last Admin: 10/30/17 09:52 Dose: 1 oin Diphenhydramine HCl (Benadryl) 25 mg PO HS PRN PRN Reason: Insomnia Ergocalciferol (Drisdol 50,000 Intl Units Cap) 1 cap PO TUE [facility] Last Admin: 10/26/17 09:47 Dose: 1 cap Furosemide (Lasix) 40 mg IVP STAT PRN PRN Reason: Post Blood Transfusion Insulin Human Regular (Humulin R Med) 0 units SC ACHS [facility] PRN Reason: Protocol Last Admin: 10/30/17 07:37 Dose: Not Given Lactulose (Enulose) 20 gm PO BID [facility] Last Admin: 10/30/17 09:50 Dose: 20 gm Pantoprazole Sodium (Protonix Inj) 40 mg IVP Q12H [facility] Last Admin: 10/30/17 09:50 Dose: 40 mg Vitamin B Complex/Vit C/Folic Acid (Nephro-Thomas) 1 tab PO DAILY [facility] Last Admin: 10/30/17 09:50 Dose: 1 tab - Labs Labs: 10/30/17 06:00 10/30/17 06:00 PT 14.2 SECONDS (9.4-12.5) H 10/30/17 06:00 INR 1.23 (0.93-1.08) H 10/30/17 06:00 APTT 31.7 Seconds (25.1-36.5) 10/30/17 06:00 - Constitutional Appears: Non-toxic, Chronically Ill - Head Exam Head Exam: NORMAL INSPECTION - Respiratory Exam Respiratory Exam: Decreased Breath Sounds - Cardiovascular Exam Cardiovascular Exam: +S1, +S2 - GI/Abdominal Exam GI & Abdominal Exam: Soft. absent: Tenderness Assessment and Plan - Assessment and Plan (Free Text) Plan: Assessment S/P right foot skin and skin structure infection, grew, Stenotrophomonas, S/P right 5th toe amputation and 5th metatarsal partial amputation as well as partial 4th metatarsal amputation, growing Stenotrophomonas and E. faecalis, with osteomyelitis - clinically improved and S/P treatment ESRD on HD history of CVA HTN cataracts DM Plan completed 6 weeks of antibiotics - continue to monitor the patient off antibiotics since he is at risk for nosocomial infections
[2017-10-30 12:50] VITALS: BP 144/76; PULSE 68; TEMP 97.4
--- NOTE | 2017-10-30 16:46 | PN ---
DATE: 10/30/2017 SUBJECTIVE: The patient is seen sitting in a chair. He is awake. He is alert. He is comfortable. He denies any pain. He denies any shortness of breath. PHYSICAL EXAMINATION GENERAL: Obese elderly male sitting in a chair. VITAL SIGNS: Blood pressure 144/76, heart rate 68, respiratory rate 20, temperature 97.4. HEENT: Normocephalic, atraumatic. Positive pallor. NECK: Supple, no JVD. LUNGS: Bilateral equal air entry, bilateral equal expansion, distant breath sounds. EXTREMITIES: A 2+ pitting edema of the lower extremities. INTAKE AND OUTPUT: Not charted. LABORATORY DATA: Hemoglobin 9.6, potassium 3.5, BUN 33, creatinine 5.5, calcium 8.1, phosphorus 3.2, albumin 3.5. ASSESSMENT: 1. Status post gastrointestinal bleed. 2. Critical aortic stenosis. 3. Coronary artery disease, percutaneous transluminal coronary angioplasty and stent. 4. Peripheral vascular disease. 5. End-stage renal disease. PLAN: 1. Hemoglobin is stable, continue to monitor. 2. Continue PPI. 3. The patient to be prepped for TAVR. 4. Stable dialysis yesterday. 5. Aggressive ultrafiltration as outpatient Svetlana Hillman MD
== END 2017-10-30 14:13 | DRG 377 ==
LOC: ED 19:48 → ERH 21:55 → 2RNO 10-26 03:07
PROVIDERS: ADMIT Internal Medicine; ATTEND Internal Medicine
PROC: 30233N1 Transfusion of Nonautologous Red Blood Cells into Peripheral Vein, Percutaneous Approach (ICD-10-PCS; 2017-10-26)
PROC: 0D568ZZ Destruction of Stomach, Via Natural or Artificial Opening Endoscopic (ICD-10-PCS; 2017-10-27)
PROC: 5A1D70Z Performance of Urinary Filtration, Intermittent, Less than 6 Hours Per Day (ICD-10-PCS; 2017-10-27)
PROC: 0D598ZZ Destruction of Duodenum, Via Natural or Artificial Opening Endoscopic (ICD-10-PCS; principal; 2017-10-27 11:30)
PROC: 4A023N7 Measurement of Cardiac Sampling and Pressure, Left Heart, Percutaneous Approach (ICD-10-PCS; 2017-10-29)
PROC: B2151ZZ Fluoroscopy of Left Heart using Low Osmolar Contrast (ICD-10-PCS; 2017-10-29)
PROC: B2111ZZ Fluoroscopy of Multiple Coronary Arteries using Low Osmolar Contrast (ICD-10-PCS; 2017-10-29)
PROC: 5A1D70Z Performance of Urinary Filtration, Intermittent, Less than 6 Hours Per Day (ICD-10-PCS; 2017-10-29)
DX: K31.811 Angiodysplasia of stomach and duodenum with bleeding (principal); N18.6 End stage renal disease; D68.9 Coagulation defect, unspecified; I13.2 Hypertensive heart and chronic kidney disease with heart failure and with stage 5 chronic kidney disease, or end stage renal disease; I47.2 Ventricular tachycardia; M86.9 Osteomyelitis, unspecified; N25.81 Secondary hyperparathyroidism of renal origin; Z68.41 Body mass index [BMI] 40.0-44.9, adult; D50.0 Iron deficiency anemia secondary to blood loss (chronic); D63.1 Anemia in chronic kidney disease; E11.22 Type 2 diabetes mellitus with diabetic chronic kidney disease; E11.36 Type 2 diabetes mellitus with diabetic cataract; E11.51 Type 2 diabetes mellitus with diabetic peripheral angiopathy without gangrene; E11.621 Type 2 diabetes mellitus with foot ulcer; E11.65 Type 2 diabetes mellitus with hyperglycemia; E11.69 Type 2 diabetes mellitus with other specified complication; E55.9 Vitamin D deficiency, unspecified; E66.01 Morbid (severe) obesity due to excess calories; E78.00 Pure hypercholesterolemia, unspecified; E78.5 Hyperlipidemia, unspecified; I05.0 Rheumatic mitral stenosis; I08.3 Combined rheumatic disorders of mitral, aortic and tricuspid valves; I25.10 Atherosclerotic heart disease of native coronary artery without angina pectoris; I27.21 Secondary pulmonary arterial hypertension; I48.0 Paroxysmal atrial fibrillation; I49.3 Ventricular premature depolarization; I50.9 Heart failure, unspecified; I87.8 Other specified disorders of veins; I89.0 Lymphedema, not elsewhere classified; K21.9 Gastro-esophageal reflux disease without esophagitis; K42.9 Umbilical hernia without obstruction or gangrene; K59.09 Other constipation; L08.9 Local infection of the skin and subcutaneous tissue, unspecified; L97.519 Non-pressure chronic ulcer of other part of right foot with unspecified severity; M16.0 Bilateral primary osteoarthritis of hip; N20.0 Calculus of kidney; N25.0 Renal osteodystrophy; N62 Hypertrophy of breast; T45.515A Adverse effect of anticoagulants, initial encounter; Z79.01 Long term (current) use of anticoagulants; Z79.4 Long term (current) use of insulin; Z79.899 Other long term (current) drug therapy; Z87.01 Personal history of pneumonia (recurrent); Z89.421 Acquired absence of other right toe(s); Z95.5 Presence of coronary angioplasty implant and graft; Z99.2 Dependence on renal dialysis; R40.2412 Glasgow coma scale score 13-15, at arrival to emergency department

== ENCOUNTER 2017-12-23 06:10 | Day surgery (SDC) | payer MEDICARE ==
[2017-12-15 08:58] VITALS: BMI 41.4
[2017-12-23 07:17] LABS: CALCIUM 8.6 mg/dL (8.4-10.5)
[2017-12-23] MEDS ORDERED: Midazolam 2 MG/2 ML VIAL ONE (07:17)
[2017-12-23] MEDS ORDERED: Etomidate 20 mg/10ml Inj IV ONE (07:18)
[2017-12-23] MEDS ORDERED: Lidocaine 2 GM Vial 2 GM/50 ML VIAL IV ONE (07:25)
[2017-12-23] MEDS ORDERED: Bupivacaine 0.5% Inj(30mL) ONE (07:34)
[2017-12-23] MEDS ORDERED: Thrombin Topical 20,000 Intl Units Spray Kit TOP ONE (08:03)
[2017-12-23] MEDS ORDERED: HYDROmorphone 0.5 mg/0.5 ml ISec IVP PRN (08:24)
--- NOTE | 2017-12-23 08:26 | PCM.SURG1 ---
Surgeon's Initial Post Op Note - Surgeon's Notes Surgeon: Dr. Mayito Schneider DPM Quality Control Lab Technician: Dr. Allen Sharma DPM. PGY1 Type of Anesthesia: IV Sedation, Local Anesthesia Administered By: Dr. Villagomez Pre-Operative Diagnosis: Chronic Right foot wound Operative Findings: see dictation. M: Apligraft. I: 20 cc of 1:1 mixture. 2% lidocaine plain and 0.5 Marcaine plain - preop. Post-Operative Diagnosis: Same Operation Performed: Right foot wound debridement using Versaget with application of apligraft. Specimen/Specimens Removed: None Estimated Blood Loss: EBL {In ML}: 5 Blood Products Given: N/A Drains Used: No Drains Post-Op Condition: Good Date of Surgery/Procedure: 12/23/17 Time of Surgery/Procedure: 08:27
[2017-12-23] MEDS ORDERED: Sodium Chloride 0.9% 1,000 ML IV SCH (08:30)
[2017-12-23 09:25] VITALS: RESP 18; TEMP 97.8
[2017-12-23 10:00] VITALS: PULSE 72; O2SAT 95
[2017-12-23 10:25] VITALS: BP 145/70
--- NOTE | 2017-12-24 23:45 | OP ---
PROCEDURE DATE: 12/23/2017 PREOPERATIVE DIAGNOSIS: Chronic right foot wound. POSTOPERATIVE DIAGNOSIS: Chronic right foot wound. PROCEDURE: Right foot wound debridement using Versajet with application of Apligraf. SURGEON: Mayito Schneider DPM. STRUCTURAL WORKER: Allen Sharma DPM, PGY1 ANESTHESIOLOGIST: Dr. Villagomez. TYPE OF ANESTHESIA: IV sedation with local. INDICATION: The patient is a 67-year-old male with the above diagnosis. The patient has exhausted all conservative treatment at this time and now requires surgical intervention. The patient signed the informed consent after explanation of all the risks, benefits, complications, and alternatives for the surgical procedure. No guarantees were given, nor implied. PREPARATION: The patient was brought into the operating room and placed on the operating room table in the supine position. The time-out was performed for the correct procedure and the identification of the patient. The patient received total of 20 mL of 1:1 mixture of 1% lidocaine plain and 0.5% Marcaine plain to the right lateral forefoot. Once the local anesthesia was achieved, the right foot was then prepped and draped in a normal sterile manner. No tourniquet was utilized during this procedure. DESCRIPTION OF PROCEDURE: Using a #15 blade, all of the hyperkeratotic tissue surrounding the wound bed was excisionally debrided. All of the fibrotic slough noted in the wound bed was also debrided using a #15 blade. At this time, a hand piece for Versajet instrument was utilized to debride all of the fibrotic tissue in the wound bed. Once the granular tissue with healthy bleeding was noted in the wound bed, the Versajet was stopped. At this time, the Apligraf was prepared on the back table. The graft was fenestrated using a #15 blade on the back table. Once the graft was prepared, it was applied to the wound bed and secured using Dermabond to the wound edges. For the graft security, Steri-Strips were applied at the edges of the wound bed, where a small piece of Apligraf was overlying. Once the graft was secured on the surgical site/wound bed, the Adaptic was placed with moist saline gauze. A bolus dressing was applied to the surgical site at this time and was dressed with 4x4, Kerlix, and Blaze bandage. After the wound debridement and before the application of the Apligraf, the wound was measured at 7 cm x 3.5 cm x 0.4 cm in depth. POSTOPERATIVE CONDITION: The patient tolerated the anesthesia and the procedure well and was escorted to the recovery room with vital signs stable and neurovascular status intact to the right foot. The patient will be weightbearing as tolerated to the heel in a surgical shoe and will follow up with Dr. Schneider at his office. Allen Sharma DPM Mayito Schneider DPM.
--- NOTE | 2017-12-27 08:49 | OP ---
PROCEDURE DATE: 12/23/2017 SURGEON: Mayito Schneider DPM CONSUMER RECRUITER: Allen Sharma DPM, PGY-1. ANESTHESIOLOGIST: Dr. Villagomez. ANESTHESIA: IV sedation with local. PREOPERATIVE DIAGNOSIS: Right foot chronic wound. POSTOPERATIVE DIAGNOSIS: Right foot chronic wound. NAME OF THE PROCEDURE: Right foot wound debridement with Versajet with application of Apligraf. INDICATION: The patient is a 67-year-old male with the above diagnosis and has exhausted all conservative treatment at this time and now requires surgical intervention. The patient signed the consent after careful explanation of risks, benefits, complications, and alternatives for the surgical procedure. No guarantees were given nor implied. PREPARATION: The patient was brought into the operating room and placed on the operating room table in supine position. A time-out was performed for identification of the correct patient and the procedure. Patient received a total of 20 mL of 1:1 mixture of 0.5% Marcaine plain and 1% lidocaine plain in local block-type fashion to the right lateral forefoot. Once the local anesthesia was achieved, the right foot was then prepped and draped in normal sterile manner. No tourniquet was utilized during this procedure. DESCRIPTION OF PROCEDURE: Using a #15 blade, wound bed was surgically debrided for all the superficial fibrotic tissue. Once all the superficial fibrotic tissue was excised, Versajet was utilized to debride the wound. All of the fibrotic fluff was debrided using a Versajet instrument until granular tissue was exposed on the wound bed. The wound bed was then rinsed with saline and Apligraf was prepared on the back table. At this time, the Apligraf was applied to the wound bed and secured to the skin edges using Dermabond. Allen Sharma DPM Mayito Schneider DPM
== END 2017-12-23 10:50 | disposition home or self-care (01) ==
LOC: SDS 06:10
PROVIDERS: ATTEND Podiatrist
DX: E11.621 Type 2 diabetes mellitus with foot ulcer (principal); L97.513 Non-pressure chronic ulcer of other part of right foot with necrosis of muscle; N18.6 End stage renal disease; E11.22 Type 2 diabetes mellitus with diabetic chronic kidney disease; I12.0 Hypertensive chronic kidney disease with stage 5 chronic kidney disease or end stage renal disease; Z79.4 Long term (current) use of insulin
CPT/HCPCS: 15002; 15271; 36415; 80048; J0690; J1170; J2250; J3010; J7030; J7120; Q4101

== ENCOUNTER 2018-07-26 08:30 | Outpatient (CLI) | payer MEDICARE | END 2018-07-26 08:31 | disposition home or self-care (01) | LOC: RAD 08:30 ==